=== PATIENT | female | born 1935 | race Caucasian/White ===

== ENCOUNTER → 2017-03-06 07:55 | Outpatient (CLI) | payer MEDICARE, SELFPAY ==
[2017-03-06 08:11] VITALS: BP 137/91; PULSE 104; RESP 18; TEMP 36.6; O2SAT 98; BMI 27.4
[2017-03-06] MEDS: Immune Globulin 20 gm Premixed Solution IV ×2 (08:23→10:36)
[2017-03-06 09:05] VITALS: BP 107/84; PULSE 96; RESP 18; TEMP 36.9; O2SAT 96
[2017-03-06 09:44] VITALS: BP 130/81; PULSE 90; RESP 16; TEMP 36.8; O2SAT 95
[2017-03-06 10:32] VITALS: BP 145/93; PULSE 98; RESP 16; TEMP 36.4; O2SAT 98
[2017-03-06 11:40] VITALS: BP 134/88; PULSE 94; RESP 18; TEMP 36.3; O2SAT 97
[2017-03-06] MEDS: Immune Globulin 5 GM Premixed Solution IV (11:51)
== END ==
PROVIDERS: Family Provider Family Medicine; PCP Family Medicine; Visit Provider Internal Medicine Rheumatology
DX: M33.92 Dermatopolymyositis, unspecified with myopathy (principal)
CPT/HCPCS: 96365; 96366; A4216; J1568

== ENCOUNTER → 2017-03-07 07:55 | Outpatient (CLI) | payer MEDICARE, SELFPAY ==
[2017-03-07 08:02] VITALS: BP 140/86; PULSE 101; RESP 18; TEMP 36.6; O2SAT 99; BMI 27.4
[2017-03-07] MEDS: Immune Globulin 20 gm Premixed Solution IV ×2 (08:08→10:06)
[2017-03-07 08:47] VITALS: BP 130/85; PULSE 98; RESP 16; TEMP 37.1; O2SAT 98
[2017-03-07 09:16] VITALS: BP 141/80; PULSE 97; RESP 16; TEMP 36.6; O2SAT 96
[2017-03-07 09:48] VITALS: BP 129/78; PULSE 71; RESP 16; TEMP 36.6
[2017-03-07 10:51] VITALS: BP 134/82; PULSE 75; RESP 16; TEMP 37.1; O2SAT 98
[2017-03-07] MEDS: Immune Globulin 5 GM Premixed Solution IV (11:19)
== END ==
PROVIDERS: Family Provider Family Medicine; PCP Family Medicine; Visit Provider Internal Medicine Rheumatology
DX: M33.92 Dermatopolymyositis, unspecified with myopathy (principal)
CPT/HCPCS: 96365; 96366; A4216; J1568

== ENCOUNTER → 2017-04-03 07:56 | Outpatient (CLI) | payer MEDICARE, SELFPAY ==
[2017-04-03] MEDS: Immune Globulin 20 gm Premixed Solution IV ×2 (08:11→10:01)
[2017-04-03 08:17] VITALS: BP 167/79; PULSE 84; RESP 16; TEMP 37.1; O2SAT 100; BMI 27.4
[2017-04-03 08:50] VITALS: BP 129/84; PULSE 73; RESP 16; TEMP 36.8; O2SAT 95
[2017-04-03 09:17] VITALS: BP 123/80; PULSE 67; RESP 16; TEMP 36.8
[2017-04-03 09:44] VITALS: BP 137/74; PULSE 64; RESP 16; TEMP 36.8
[2017-04-03 11:05] VITALS: BP 138/78; PULSE 68; RESP 16; TEMP 36.8
[2017-04-03] MEDS: Immune Globulin 5 GM Premixed Solution IV (11:23)
[2017-04-03 11:58] VITALS: BP 125/80; PULSE 68; RESP 16
== END ==
PROVIDERS: Family Provider Family Medicine; PCP Family Medicine; Visit Provider Internal Medicine Rheumatology
DX: M33.92 Dermatopolymyositis, unspecified with myopathy (principal)
CPT/HCPCS: 96365; 96366; A4216; J1568

== ENCOUNTER → 2017-04-04 07:52 | Outpatient (CLI) | payer MEDICARE, SELFPAY ==
[2017-04-04 08:08] VITALS: BP 143/84; PULSE 94; RESP 18; TEMP 37.1; O2SAT 98; BMI 27.0
[2017-04-04] MEDS: Immune Globulin 20 gm Premixed Solution IV ×2 (08:14→09:57)
[2017-04-04 08:45] VITALS: BP 141/76; PULSE 78; RESP 16; TEMP 37; O2SAT 98
[2017-04-04 09:15] VITALS: BP 135/86; PULSE 73
[2017-04-04 09:49] VITALS: BP 132/87; PULSE 78; RESP 18; TEMP 36.9; O2SAT 96
[2017-04-04] MEDS: Immune Globulin 5 GM Premixed Solution IV (11:08)
== END ==
PROVIDERS: Family Provider Family Medicine; PCP Family Medicine; Visit Provider Internal Medicine Rheumatology
DX: M33.92 Dermatopolymyositis, unspecified with myopathy (principal)
CPT/HCPCS: 96365; 96366; A4216; J1568

== ENCOUNTER → 2017-04-27 07:48 | Outpatient (CLI) | payer MEDICARE, SELFPAY ==
[2017-04-27 10:24] LABS: PTHIN 73.4 pg/mL (18.4-80.1)
[2017-04-27 10:27] LABS: ALB/GLOB Ratio 0.8 RATIO (0.9-2.4); AST(SGOT) 24 U/L (15-37); Alanine Aminotransfer ALT/SGPT 33 U/L (13-56); Albumin, Serum 3.4 g/dL (3.2-5.0); Alkaline Phosphatase 49 U/L (45-117); Anion Gap 8 (5-15); BUN 15 mg/dL (7-18); BUN/Creat Ratio 25.6 RATIO (10-20); Calcium,Total 8.6 mg/dL (8.5-10.1); Chloride 104 mmol/L (98-107); Creatinine, Serum 0.59 mg/dL (0.55-1.02); EST Glomerular Filtration Rate 105 mL/min (>60); Est Glom Filt Rate - Afr Amer 127 mL/min (>60); Globulin 4.3 g/dL (2.2-4.2); Glucose 87 mg/dL (74-106); Potassium 3.5 mmol/L (3.5-5.1); Protein, Total 7.7 g/dL (6.4-8.2); Sodium Level 139 mmol/L (136-145); Thyroid Stim Hormone (TSH) 1.76 uIU/mL (0.358-3.74)
== END ==
PROVIDERS: Family Provider Family Medicine; PCP Family Medicine; Visit Provider Internal Medicine Endocrinology, Diabetes & Metabolism
DX: E03.8 Other specified hypothyroidism (principal)
CPT/HCPCS: 36415; 80053; 83970; 84443

== ENCOUNTER → 2017-05-02 07:53 | Outpatient (CLI) | payer MEDICARE, SELFPAY ==
[2017-05-02] MEDS: Immune Globulin 20 gm Premixed Solution IV ×2 (08:22→10:10)
[2017-05-02 08:29] VITALS: BP 123/81; PULSE 100; RESP 16; TEMP 36.9; O2SAT 98; BMI 27.4
[2017-05-02 08:53] VITALS: BP 118/80; PULSE 84; RESP 16; TEMP 37.1; O2SAT 94
[2017-05-02 09:27] VITALS: BP 123/75; PULSE 76; RESP 16; TEMP 36.9; O2SAT 97
[2017-05-02 09:58] VITALS: BP 129/80; PULSE 70; RESP 16; TEMP 36.6; O2SAT 97
[2017-05-02 10:59] VITALS: BP 134/74; PULSE 79; RESP 16; TEMP 37.2; O2SAT 99
[2017-05-02] MEDS: Immune Globulin 10 gm Premixed Solution IV (11:25)
== END ==
PROVIDERS: Family Provider Family Medicine; PCP Family Medicine; Visit Provider Internal Medicine Rheumatology
DX: M33.92 Dermatopolymyositis, unspecified with myopathy (principal)
CPT/HCPCS: 96365; 96366; A4216; J1568

== ENCOUNTER → 2017-05-03 07:52 | Outpatient (CLI) | payer MEDICARE, SELFPAY ==
[2017-05-03 07:58] VITALS: BP 132/84; PULSE 107; RESP 16; TEMP 37; O2SAT 97; BMI 27.4
[2017-05-03] MEDS: Immune Globulin 20 gm Premixed Solution IV ×2 (08:19→09:56)
[2017-05-03 08:52] VITALS: BP 121/80; PULSE 91; RESP 16; TEMP 36.9; O2SAT 98
[2017-05-03 09:25] VITALS: BP 125/75; PULSE 79; RESP 18; TEMP 36.9; O2SAT 93
[2017-05-03 09:56] VITALS: BP 128/76; PULSE 70; RESP 16; TEMP 36.9; O2SAT 96
[2017-05-03 11:03] VITALS: BP 132/80; PULSE 83; RESP 16; TEMP 36.8; O2SAT 96
== END ==
PROVIDERS: Family Provider Family Medicine; PCP Family Medicine; Visit Provider Internal Medicine Rheumatology
DX: M33.92 Dermatopolymyositis, unspecified with myopathy (principal)
CPT/HCPCS: 96365; 96366; A4216; J1568

== ENCOUNTER → 2017-05-10 08:24 | Outpatient (CLI) | payer MEDICARE, SELFPAY ==
[2017-05-10 09:55] LABS: Absolute Lymphocyte Count 0.97 X10^3/ul (0.83-4.51); Absolute Neutrophil Count 2.1 X10^3/uL (2.0-7.7); Basophil# 0.05 X10^3/uL; Basophil% 1.3 % (0-1); Eosinophil# 0.16 X10^3/uL; Hematocrit 37.6 % (37-47); Hemoglobin 12.1 g/dl (12.0-15.0); Lymphocyte # 0.97 X10^3/ul (4.0); Lymphocyte % 24.3 % (19-41); Mean Corp Hgb Conc 32.2 g/gl (32-36); Mean Corpuscular Hgb 29.4 pg (27.0-32.0); Mean Corpuscular Volume 91.3 fL (81-99); Mean Platelet Vol. 9.1 fl (6.2-12.0); Monocyte# 0.67 X10^3/uL; Monocyte% 16.8 % (0-10); Neutrophil # 2.12 X10^3/uL (2.7-7.7); Neutrophil % 53.1 % (47-70); Platelet Count 225 K/mm3 (150-450); RBC Distribution Width CV 15.8 % (11.6-14.6); RBC Distribution Width SD 50.9 fl (35.1-43.9); Red Blood Count 4.12 M/mm3 (4.2-5.4)
[2017-05-10 09:56] LABS: POSITIVE COUNT NO; POSITIVE DIFFERENTIAL NO; POSITIVE MORPHOLOGY NO
[2017-05-10 10:20] LABS: ALB/GLOB Ratio 0.7 RATIO (0.9-2.4); AST(SGOT) 32 U/L (15-37); Alanine Aminotransfer ALT/SGPT 38 U/L (13-56); Albumin, Serum 3.4 g/dL (3.2-5.0); Alkaline Phosphatase 45 U/L (45-117); Anion Gap 7 (5-15); BUN 16 mg/dL (7-18); BUN/Creat Ratio 27.6 RATIO (10-20); CPK Total, Creatine Kinase 149 U/L (26-192); Calcium,Total 8.8 mg/dL (8.5-10.1); Chloride 105 mmol/L (98-107); Creatinine, Serum 0.58 mg/dL (0.55-1.02); EST Glomerular Filtration Rate 106 mL/min (>60); Est Glom Filt Rate - Afr Amer 128 mL/min (>60); Globulin 4.8 g/dL (2.2-4.2); Glucose 84 mg/dL (74-106); Potassium 3.8 mmol/L (3.5-5.1); Protein, Total 8.2 g/dL (6.4-8.2); Sodium Level 138 mmol/L (136-145)
== END ==
PROVIDERS: Family Provider Family Medicine; PCP Family Medicine; Visit Provider Internal Medicine Rheumatology
DX: M33.92 Dermatopolymyositis, unspecified with myopathy (principal); M15.9 Polyosteoarthritis, unspecified; M51.36 Other intervertebral disc degeneration, lumbar region; M81.0 Age-related osteoporosis without current pathological fracture; I10 Essential (primary) hypertension; E03.9 Hypothyroidism, unspecified; Z79.899 Other long term (current) drug therapy
CPT/HCPCS: 36415; 80053; 82550; 85025

== ENCOUNTER → 2017-05-30 07:51 | Outpatient (CLI) | payer MEDICARE, SELFPAY ==
[2017-05-30 07:58] VITALS: BP 135/87; PULSE 99; RESP 16; TEMP 37; O2SAT 96
[2017-05-30] MEDS: Immune Globulin 20 gm Premixed Solution IV ×2 (08:05→09:59)
[2017-05-30 08:40] VITALS: BP 117/75; PULSE 76; RESP 16; TEMP 36.8; O2SAT 99
[2017-05-30 09:10] VITALS: BP 160/85; PULSE 84; RESP 16; TEMP 36.8; O2SAT 98
[2017-05-30 09:50] VITALS: BP 127/74; PULSE 63; RESP 18; TEMP 36.6; O2SAT 99
[2017-05-30 10:55] VITALS: BP 140/80; PULSE 66; RESP 16; TEMP 36.6; O2SAT 66
[2017-05-30] MEDS: Immune Globulin 5 GM Premixed Solution IV (11:10)
[2017-05-30 11:35] VITALS: BP 151/79; PULSE 61; RESP 16; TEMP 36.5; O2SAT 96
== END ==
PROVIDERS: Family Provider Family Medicine; PCP Family Medicine; Visit Provider Internal Medicine Rheumatology
DX: M33.92 Dermatopolymyositis, unspecified with myopathy (principal)
CPT/HCPCS: 96365; 96366; A4216; J1568

== ENCOUNTER → 2017-05-31 07:53 | Outpatient (CLI) | payer MEDICARE, SELFPAY ==
[2017-05-31 07:57] VITALS: BP 156/84; PULSE 97; RESP 16; TEMP 36.6; O2SAT 98; BMI 27.4
[2017-05-31] MEDS: Immune Globulin 20 gm Premixed Solution IV ×2 (08:06→09:53)
[2017-05-31 08:40] VITALS: BP 121/79; PULSE 77; RESP 16; TEMP 36.7; O2SAT 96
[2017-05-31 09:10] VITALS: BP 129/81; PULSE 83; RESP 18; TEMP 36.7; O2SAT 95
[2017-05-31 09:40] VITALS: BP 140/77; PULSE 73; RESP 16; TEMP 36.7; O2SAT 95
[2017-05-31 10:40] VITALS: BP 139/79; PULSE 66; RESP 16; TEMP 36.4; O2SAT 96
[2017-05-31] MEDS: Immune Globulin 5 GM Premixed Solution IV (11:02)
[2017-05-31 11:25] VITALS: BP 134/85; PULSE 78; RESP 16; TEMP 36.7; O2SAT 96
== END ==
PROVIDERS: Family Provider Family Medicine; PCP Family Medicine; Visit Provider Internal Medicine Rheumatology
DX: M33.92 Dermatopolymyositis, unspecified with myopathy (principal)
CPT/HCPCS: 96365; 96366; A4216; J1568

== ENCOUNTER → 2017-06-18 09:40 | Outpatient (CLI) | payer MEDICARE, SELFPAY ==
--- NOTE | 2017-06-18 09:45 | BI_ITS ---
MAMMOGRAPHY - UNILATERAL DIAGNOSTIC: LEFT BREAST REASON FOR EXAM: Female, 81 years old. Six-month follow-up for stereotactic biopsy of the calcifications in the left breast. PERTINENT HISTORY: Sister with breast cancer. Patient has a history of autoimmune dermatomyositis. TECHNIQUE: Digital unilateral breast hope (3D mammographic acquisition) in the CC and MLO projections. 2-D mediolateral oblique (MLO) and craniocaudad (CC) views of both breasts were obtained. CAD: Full Field Digital Mammography with Computer Added Detection was performed. COMPARISON: Comparison is made with prior study dated October 03, 2016 and September 15, 2015. FINDINGS: Breast Composition: There are scattered areas of fibroglandular density. There are no dominant masses or suspicious calcifications. A tissue clip marker from prior stereotactic biopsy is seen within the calcifications in the deep upper portion of the left breast. The calcifications have decreased in number since prior study. Stable skin calcification overlying the lower aspect of the left breast. No other significant abnormalities are identified. BI/DIAG MAMM W/CAD, UNILAT IMPRESSION: Stable unilateral diagnostic mammogram. One year follow-up mammogram recommended. (A) ASSESSMENT CATEGORY: BIRADS Category 2: Benign. A letter regarding these results will be sent to the patient by the facility within 30 days. Approximately 10% of breast cancers are not detected by mammography. A normal mammogram should not delay biopsy of a clinically suspicious abnormality. Electronically Signed: Jose Jackson MD at 11:02 EDT Tel [phone], Service support ,
== END ==
PROVIDERS: Family Provider Family Medicine; PCP Family Medicine; Visit Provider Surgery
DX: R92.8 Other abnormal and inconclusive findings on diagnostic imaging of breast (principal)
CPT/HCPCS: 77061; 77065; G0279

== ENCOUNTER → 2017-06-27 08:00 | Outpatient (CLI) | payer MEDICARE, SELFPAY ==
[2017-06-27 08:01] VITALS: BP 148/85; PULSE 107; RESP 16; TEMP 36.7; O2SAT 96; BMI 27.0
[2017-06-27] MEDS: Immune Globulin 20 gm Premixed Solution IV ×2 (08:17→10:08)
[2017-06-27 08:52] VITALS: BP 123/77; PULSE 79; RESP 16; TEMP 36.7
[2017-06-27 09:25] VITALS: BP 131/80; PULSE 76; RESP 18; TEMP 36.6; O2SAT 96
[2017-06-27 09:57] VITALS: BP 131/79; PULSE 77; RESP 16; TEMP 36.6
[2017-06-27 11:05] VITALS: BP 141/89; PULSE 71; RESP 16; TEMP 36.6
[2017-06-27] MEDS: Immune Globulin 5 GM Premixed Solution IV (11:29)
[2017-06-27 11:56] VITALS: BP 135/82; PULSE 68; RESP 16; TEMP 36.3; O2SAT 97
== END ==
PROVIDERS: Family Provider Family Medicine; PCP Family Medicine; Visit Provider Internal Medicine Rheumatology
DX: M33.92 Dermatopolymyositis, unspecified with myopathy (principal)
CPT/HCPCS: 96365; 96366; A4216; J1568

== ENCOUNTER → 2017-06-28 07:53 | Outpatient (CLI) | payer MEDICARE, SELFPAY ==
[2017-06-28 08:05] VITALS: BP 143/82; PULSE 95; RESP 18; TEMP 36.5; O2SAT 97; BMI 27.1
[2017-06-28] MEDS: Immune Globulin 20 gm Premixed Solution IV ×2 (08:12→09:56)
[2017-06-28 08:43] VITALS: BP 131/77; PULSE 85; RESP 18; TEMP 36.3; O2SAT 95
[2017-06-28 09:15] VITALS: BP 115/73; PULSE 74; RESP 16; TEMP 36.2; O2SAT 96
[2017-06-28 09:47] VITALS: BP 122/77; PULSE 71; RESP 16; TEMP 36.1; O2SAT 95
[2017-06-28 10:56] VITALS: BP 133/87; PULSE 67; RESP 16; TEMP 36.7
[2017-06-28] MEDS: Immune Globulin 5 GM Premixed Solution IV (11:09)
== END ==
PROVIDERS: Family Provider Family Medicine; PCP Family Medicine; Visit Provider Internal Medicine Rheumatology
DX: M33.92 Dermatopolymyositis, unspecified with myopathy (principal)
CPT/HCPCS: 96365; 96366; J1568

== ENCOUNTER → 2017-07-26 07:50 | Outpatient (CLI) | payer MEDICARE, SELFPAY ==
[2017-07-26 08:01] VITALS: BP 135/94; PULSE 89; RESP 18; TEMP 37.2; O2SAT 97; BMI 27.6
[2017-07-26] MEDS: Immune Globulin 20 gm Premixed Solution IV ×2 (08:29→10:11)
[2017-07-26 08:59] VITALS: BP 111/78; PULSE 73; RESP 16; TEMP 37.2; O2SAT 95
[2017-07-26 09:33] VITALS: BP 125/74; PULSE 70; RESP 16; TEMP 37.1; O2SAT 96
[2017-07-26 10:09] VITALS: BP 124/77; PULSE 63; RESP 18; TEMP 36.8; O2SAT 96
[2017-07-26 11:17] VITALS: BP 132/79; PULSE 65; RESP 18; TEMP 37; O2SAT 97
[2017-07-26] MEDS: Immune Globulin 5 GM Premixed Solution IV (11:21)
== END ==
PROVIDERS: Family Provider Family Medicine; PCP Family Medicine; Visit Provider Internal Medicine Rheumatology
DX: M33.92 Dermatopolymyositis, unspecified with myopathy (principal)
CPT/HCPCS: 96365; 96366; A4216; J1568

== ENCOUNTER → 2017-07-27 07:51 | Outpatient (CLI) | payer MEDICARE, SELFPAY ==
[2017-07-27 07:57] VITALS: BP 145/82; PULSE 93; RESP 18; TEMP 36.2; O2SAT 94; BMI 27.6
[2017-07-27] MEDS: Immune Globulin 20 gm Premixed Solution IV ×2 (08:19→10:10)
[2017-07-27 08:57] VITALS: BP 127/81; PULSE 75; RESP 16
[2017-07-27 09:29] VITALS: BP 151/86; PULSE 73
[2017-07-27 09:55] VITALS: BP 131/70; PULSE 69
[2017-07-27 10:46] VITALS: BP 130/72; PULSE 66
[2017-07-27] MEDS: Immune Globulin 5 GM Premixed Solution IV (11:29)
[2017-07-27 11:33] VITALS: BP 137/85; PULSE 68; RESP 18; TEMP 36.3; O2SAT 97
== END ==
PROVIDERS: Family Provider Family Medicine; PCP Family Medicine; Visit Provider Internal Medicine Rheumatology
DX: M33.92 Dermatopolymyositis, unspecified with myopathy (principal)
CPT/HCPCS: 96365; 96366; A4216; J1568

== ENCOUNTER → 2017-08-09 07:44 | Outpatient (CLI) | payer MEDICARE, SELFPAY ==
[2017-08-09 10:10] LABS: Absolute Lymphocyte Count 0.84 X10^3/ul (0.83-4.51); Absolute Neutrophil Count 2.4 X10^3/uL (2.0-7.7); Basophil# 0.06 X10^3/uL; Basophil% 1.5 % (0-1); Eosinophil# 0.14 X10^3/uL; Eosinophils% 3.4 % (0-5); Hemoglobin 12.8 g/dl (12.0-15.0); Lymphocyte # 0.84 X10^3/ul (4.0); Lymphocyte % 20.4 % (19-41); Mean Corp Hgb Conc 32.8 g/gl (32-36); Mean Corpuscular Hgb 30.1 pg (27.0-32.0); Mean Corpuscular Volume 91.8 fL (81-99); Mean Platelet Vol. 9.6 fl (6.2-12.0); Monocyte# 0.72 X10^3/uL; Monocyte% 17.5 % (0-10); Neutrophil # 2.35 X10^3/uL (2.7-7.7); Platelet Count 255 K/mm3 (150-450); RBC Distribution Width SD 52.4 fl (35.1-43.9); Red Blood Count 4.25 M/mm3 (4.2-5.4); White Blood Count 4.1 K/mm3 (4.4-11.0)
[2017-08-09 10:31] LABS: POSITIVE COUNT NO; POSITIVE DIFFERENTIAL NO; POSITIVE MORPHOLOGY NO
[2017-08-09 10:33] LABS: ALB/GLOB Ratio 0.7 RATIO (0.9-2.4); AST(SGOT) 29 U/L (15-37); Alanine Aminotransfer ALT/SGPT 33 U/L (13-56); Albumin, Serum 3.4 g/dL (3.2-5.0); Alkaline Phosphatase 50 U/L (45-117); Anion Gap 8 (5-15); BUN 14 mg/dL (7-18); BUN/Creat Ratio 20.9 RATIO (10-20); CPK Total, Creatine Kinase 71 U/L (26-192); Calcium,Total 9.4 mg/dL (8.5-10.1); Chloride 104 mmol/L (98-107); Creatinine, Serum 0.67 mg/dL (0.55-1.02); EST Glomerular Filtration Rate 90 mL/min (>60); Est Glom Filt Rate - Afr Amer 109 mL/min (>60); Globulin 4.8 g/dL (2.2-4.2); Glucose 86 mg/dL (74-106); Potassium 3.8 mmol/L (3.5-5.1); Protein, Total 8.2 g/dL (6.4-8.2); Sodium Level 140 mmol/L (136-145)
== END ==
PROVIDERS: Family Provider Family Medicine; PCP Family Medicine; Visit Provider Internal Medicine Rheumatology
DX: M33.92 Dermatopolymyositis, unspecified with myopathy (principal); M15.9 Polyosteoarthritis, unspecified; M51.36 Other intervertebral disc degeneration, lumbar region; M81.0 Age-related osteoporosis without current pathological fracture; I10 Essential (primary) hypertension; E03.9 Hypothyroidism, unspecified; E21.1 Secondary hyperparathyroidism, not elsewhere classified; Z79.899 Other long term (current) drug therapy
CPT/HCPCS: 36415; 80053; 82550; 85025

== ENCOUNTER → 2017-08-23 07:52 | Outpatient (CLI) | payer MEDICARE, SELFPAY ==
[2017-08-23 08:01] VITALS: BP 136/84; PULSE 90; RESP 16; TEMP 36.6; O2SAT 97; BMI 27.4
[2017-08-23] MEDS: Immune Globulin 20 gm Premixed Solution IV ×2 (08:13→10:05)
[2017-08-23 08:49] VITALS: BP 160/99; PULSE 83; RESP 16; TEMP 36.8; O2SAT 97
[2017-08-23 09:26] VITALS: BP 127/81; PULSE 77; RESP 16; TEMP 36.8
[2017-08-23 09:56] VITALS: BP 133/89; PULSE 61; RESP 16; TEMP 36.3
[2017-08-23 11:04] VITALS: BP 133/74; PULSE 61; RESP 18; TEMP 36.4; O2SAT 97
[2017-08-23] MEDS: Immune Globulin 5 GM Premixed Solution IV (11:08)
== END ==
PROVIDERS: Family Provider Family Medicine; PCP Family Medicine; Visit Provider Internal Medicine Rheumatology
DX: M33.92 Dermatopolymyositis, unspecified with myopathy (principal)
CPT/HCPCS: 96365; 96366; A4216; J1568

== ENCOUNTER → 2017-08-24 07:53 | Outpatient (CLI) | payer MEDICARE, SELFPAY ==
[2017-08-24 08:00] VITALS: BP 137/81; PULSE 77; RESP 16; TEMP 36.8; O2SAT 98; BMI 27.4
[2017-08-24] MEDS: Immune Globulin 20 gm Premixed Solution IV ×2 (08:28→10:35)
[2017-08-24 09:07] VITALS: BP 139/80; PULSE 73; RESP 16; TEMP 36.9; O2SAT 96
[2017-08-24 09:38] VITALS: BP 131/82; PULSE 66; RESP 14; TEMP 36.6; O2SAT 97
[2017-08-24 10:11] VITALS: BP 128/78; PULSE 72; RESP 16; TEMP 36.7; O2SAT 97
[2017-08-24 11:05] VITALS: BP 136/82; PULSE 58; RESP 16; TEMP 36.4; O2SAT 98
[2017-08-24] MEDS: Immune Globulin 5 GM Premixed Solution IV (11:40)
[2017-08-24 12:10] VITALS: BP 156/71; PULSE 70; RESP 16; TEMP 36.8; O2SAT 97
== END ==
PROVIDERS: Family Provider Family Medicine; PCP Family Medicine; Visit Provider Internal Medicine Rheumatology
DX: M33.92 Dermatopolymyositis, unspecified with myopathy (principal)
CPT/HCPCS: 96365; 96366; A4216; J1568

== ENCOUNTER → 2017-09-20 07:56 | Outpatient (CLI) | payer MEDICARE, SELFPAY ==
[2017-09-20 08:07] VITALS: BP 133/82; PULSE 91; RESP 18; TEMP 36.6; O2SAT 98; BMI 27.6
[2017-09-20] MEDS: Immune Globulin 20 gm Premixed Solution IV ×2 (08:20→10:25)
[2017-09-20 09:00] VITALS: BP 136/85; PULSE 77
[2017-09-20 09:30] VITALS: BP 131/77; PULSE 72
[2017-09-20 10:00] VITALS: BP 131/66; PULSE 67; RESP 16
[2017-09-20 11:03] VITALS: BP 135/76; PULSE 70; RESP 18; TEMP 36.5; O2SAT 97
[2017-09-20] MEDS: Immune Globulin 5 GM Premixed Solution IV (11:32)
[2017-09-20 11:58] VITALS: BP 130/73; PULSE 68; RESP 18; TEMP 36.6; O2SAT 96
== END ==
PROVIDERS: Family Provider Family Medicine; PCP Family Medicine; Visit Provider Internal Medicine Rheumatology
DX: M33.92 Dermatopolymyositis, unspecified with myopathy (principal)
CPT/HCPCS: 96365; 96366; A4216; J1568

== ENCOUNTER → 2017-09-21 07:52 | Outpatient (CLI) | payer MEDICARE, SELFPAY ==
[2017-09-21 08:00] VITALS: BP 150/87; PULSE 91; RESP 16; TEMP 36.8; O2SAT 98; BMI 27.6
[2017-09-21] MEDS: Immune Globulin 20 gm Premixed Solution IV ×2 (08:34→10:28)
[2017-09-21 09:07] VITALS: BP 136/87; PULSE 77; RESP 16; TEMP 36.6; O2SAT 96
[2017-09-21 09:39] VITALS: BP 135/83; PULSE 61; RESP 16; TEMP 36.5; O2SAT 98
[2017-09-21 10:12] VITALS: BP 126/70; PULSE 68; RESP 16; TEMP 36.5; O2SAT 97
[2017-09-21 11:11] VITALS: BP 127/78; PULSE 62; RESP 16; TEMP 36.5; O2SAT 98
[2017-09-21] MEDS: Immune Globulin 5 GM Premixed Solution IV (11:41)
== END ==
PROVIDERS: Family Provider Family Medicine; PCP Family Medicine; Visit Provider Internal Medicine Rheumatology
DX: M33.92 Dermatopolymyositis, unspecified with myopathy (principal)
CPT/HCPCS: 96365; 96366; A4216; J1568

== ENCOUNTER → 2017-10-04 08:28 | Outpatient (CLI) | payer MEDICARE, SELFPAY | PROVIDERS: Family Provider Family Medicine; PCP Family Medicine; Visit Provider Family Medicine | DX: Z12.31 Encounter for screening mammogram for malignant neoplasm of breast (principal) | CPT/HCPCS: 77061; 77067; G0279 ==

== ENCOUNTER → 2017-10-18 07:59 | Outpatient (CLI) | payer MEDICARE, SELFPAY ==
[2017-10-18] VITALS (7 sets, daily range): BP systolic 115–140; BP diastolic 69–83; PULSE 66–93; RESP 15–18; TEMP 36.5–37.1; O2SAT 94–98
[2017-10-18] MEDS: Immune Globulin 20 gm Premixed Solution IV ×2 (08:23→10:18)
[2017-10-18] MEDS: Immune Globulin 5 GM Premixed Solution IV (11:46)
== END ==
PROVIDERS: Family Provider Family Medicine; PCP Family Medicine; Visit Provider Internal Medicine Rheumatology
DX: M33.92 Dermatopolymyositis, unspecified with myopathy (principal)
CPT/HCPCS: 96365; 96366; A4216; J1568

== ENCOUNTER → 2017-10-19 07:55 | Outpatient (CLI) | payer MEDICARE, SELFPAY ==
[2017-10-19 08:09] VITALS: BP 175/83; PULSE 100; RESP 16; TEMP 37.1; O2SAT 98; BMI 27.2
[2017-10-19] MEDS: Immune Globulin 20 gm Premixed Solution IV ×2 (08:24→10:11)
[2017-10-19 09:00] VITALS: BP 153/94; PULSE 73; RESP 16; TEMP 36.9; O2SAT 97
[2017-10-19 09:31] VITALS: BP 121/69; PULSE 78; RESP 16; TEMP 36.6; O2SAT 100
[2017-10-19 10:01] VITALS: BP 115/72; PULSE 63; RESP 16
[2017-10-19] MEDS: Immune Globulin 5 GM Premixed Solution IV (11:21)
== END ==
PROVIDERS: Family Provider Family Medicine; PCP Family Medicine; Visit Provider Internal Medicine Rheumatology
DX: M33.92 Dermatopolymyositis, unspecified with myopathy (principal)
CPT/HCPCS: 96365; 96366; A4216; J1568

== ENCOUNTER → 2017-10-29 07:20 | Outpatient (CLI) | payer MEDICARE, SELFPAY ==
[2017-10-29 10:22] LABS: Absolute Lymphocyte Count 0.93 X10^3/ul (0.83-4.51); Absolute Neutrophil Count 1.9 X10^3/uL (2.0-7.7); Basophil# 0.02 X10^3/uL; Basophil% 0.6 % (0-1); Eosinophil# 0.02 X10^3/uL; Eosinophils% 0.6 % (0-5); Hemoglobin 12.4 g/dl (12.0-15.0); Lymphocyte # 0.93 X10^3/ul (4.0); Lymphocyte % 25.8 % (19-41); Mean Corp Hgb Conc 33.5 g/gl (32-36); Mean Corpuscular Hgb 30.7 pg (27.0-32.0); Mean Corpuscular Volume 91.6 fL (81-99); Mean Platelet Vol. 9.4 fl (6.2-12.0); Monocyte# 0.69 X10^3/uL; Monocyte% 19.2 % (0-10); Neutrophil # 1.93 X10^3/uL (2.7-7.7); Neutrophil % 53.5 % (47-70); Platelet Count 243 K/mm3 (150-450); RBC Distribution Width SD 50.3 fl (35.1-43.9); Red Blood Count 4.04 M/mm3 (4.2-5.4); White Blood Count 3.6 K/mm3 (4.4-11.0)
[2017-10-29 10:24] LABS: POSITIVE COUNT NO; POSITIVE DIFFERENTIAL NO; POSITIVE MORPHOLOGY NO
[2017-10-29 10:41] LABS: ALB/GLOB Ratio 0.7 RATIO (0.9-2.4); AST(SGOT) 23 U/L (15-37); Alanine Aminotransfer ALT/SGPT 32 U/L (13-56); Albumin, Serum 3.4 g/dL (3.2-5.0); Alkaline Phosphatase 45 U/L (45-117); Anion Gap 7 (5-15); BUN 13 mg/dL (7-18); BUN/Creat Ratio 21.1 RATIO (10-20); CPK Total, Creatine Kinase 82 U/L (26-192); Calcium,Total 8.6 mg/dL (8.5-10.1); Chloride 107 mmol/L (98-107); Creatinine, Serum 0.62 mg/dL (0.55-1.02); EST Glomerular Filtration Rate 99 mL/min (>60); Est Glom Filt Rate - Afr Amer 120 mL/min (>60); Globulin 5.2 g/dL (2.2-4.2); Glucose 85 mg/dL (74-106); Potassium 3.9 mmol/L (3.5-5.1); Protein, Total 8.6 g/dL (6.4-8.2); Sodium Level 139 mmol/L (136-145); Thyroid Stim Hormone (TSH) 1.18 uIU/mL (0.358-3.74)
[2017-10-29 10:54] LABS: PTHIN 119.4 pg/mL (18.4-80.1); Vitamin D,25 Hydroxy 62.6 ng/mL (29.95-100.01)
== END ==
PROVIDERS: Family Provider Family Medicine; PCP Family Medicine; Visit Provider Internal Medicine Rheumatology
DX: M33.92 Dermatopolymyositis, unspecified with myopathy (principal); M15.9 Polyosteoarthritis, unspecified; M51.36 Other intervertebral disc degeneration, lumbar region; M81.0 Age-related osteoporosis without current pathological fracture; I10 Essential (primary) hypertension; E21.1 Secondary hyperparathyroidism, not elsewhere classified; E03.8 Other specified hypothyroidism; E55.9 Vitamin D deficiency, unspecified; Z79.899 Other long term (current) drug therapy
CPT/HCPCS: 36415; 80053; 82306; 82550; 83970; 84443; 85025

== ENCOUNTER → 2017-11-15 08:00 | Outpatient (CLI) | payer MEDICARE, SELFPAY ==
[2017-11-15 08:08] VITALS: BP 140/89; PULSE 94; RESP 18; TEMP 36.6; O2SAT 97; BMI 26.8
[2017-11-15] MEDS: Immune Globulin 10 gm Premixed Solution IV ×4 (08:31→12:03)
[2017-11-15 09:08] VITALS: BP 110/74; PULSE 72; RESP 18; TEMP 36.8; O2SAT 96
[2017-11-15 09:35] VITALS: BP 139/77; PULSE 67
[2017-11-15 10:05] VITALS: BP 143/80; PULSE 74; RESP 18; TEMP 36.7; O2SAT 94
[2017-11-15 10:57] VITALS: BP 130/75; PULSE 63; RESP 16; TEMP 36.7; O2SAT 97
[2017-11-15] MEDS: Immune Globulin 5 GM Premixed Solution IV (11:34)
== END ==
PROVIDERS: Family Provider Family Medicine; PCP Family Medicine; Visit Provider Internal Medicine Rheumatology
DX: M33.92 Dermatopolymyositis, unspecified with myopathy (principal)
CPT/HCPCS: 96365; 96366; A4216; J1568

== ENCOUNTER → 2017-11-16 07:58 | Outpatient (CLI) | payer MEDICARE, SELFPAY ==
[2017-11-16 08:07] VITALS: BP 142/72; PULSE 91; RESP 16; TEMP 37; O2SAT 98; BMI 26.8
[2017-11-16] MEDS: Immune Globulin 10 gm Premixed Solution IV ×4 (08:33→11:05)
[2017-11-16 09:05] VITALS: BP 123/80; PULSE 90; RESP 18; TEMP 36.9; O2SAT 96
[2017-11-16 09:32] VITALS: BP 121/77; PULSE 68; RESP 18; TEMP 36.7; O2SAT 96
[2017-11-16 10:23] VITALS: BP 122/74; PULSE 65; RESP 16; TEMP 36.7; O2SAT 97
[2017-11-16 11:29] VITALS: BP 133/83; PULSE 64; RESP 16; TEMP 36.6; O2SAT 98
[2017-11-16] MEDS: Immune Globulin 5 GM Premixed Solution IV (11:38)
== END ==
PROVIDERS: Family Provider Family Medicine; PCP Family Medicine; Visit Provider Internal Medicine Rheumatology
DX: M33.92 Dermatopolymyositis, unspecified with myopathy (principal)
CPT/HCPCS: 96365; 96366; A4216; J1568

== ENCOUNTER → 2017-12-13 07:53 | Outpatient (CLI) | payer MEDICARE, SELFPAY ==
[2017-12-13 07:59] VITALS: BP 141/80; PULSE 94; RESP 18; TEMP 36.6; O2SAT 98; BMI 26.4
[2017-12-13] MEDS: Immune Globulin 20 gm Premixed Solution IV ×2 (08:17→10:05)
[2017-12-13 08:51] VITALS: BP 120/71; PULSE 71; RESP 16; TEMP 36.6; O2SAT 98
[2017-12-13 09:26] VITALS: BP 114/63; PULSE 66; RESP 18; TEMP 36.2; O2SAT 95
[2017-12-13 09:51] VITALS: BP 120/71; PULSE 64; RESP 18; TEMP 36.5; O2SAT 97
[2017-12-13 11:01] VITALS: BP 134/75; PULSE 83; RESP 18; TEMP 36.2; O2SAT 97
[2017-12-13] MEDS: Immune Globulin 5 GM Premixed Solution IV (11:16)
== END ==
PROVIDERS: Family Provider Family Medicine; PCP Family Medicine; Referring Provider Internal Medicine Rheumatology; Visit Provider Internal Medicine Rheumatology
DX: M33.92 Dermatopolymyositis, unspecified with myopathy (principal)
CPT/HCPCS: 96365; 96366; A4216; J1568

== ENCOUNTER → 2017-12-14 07:56 | Outpatient (CLI) | payer MEDICARE, SELFPAY ==
[2017-12-14 08:03] VITALS: BP 148/73; PULSE 92; RESP 16; TEMP 37.1; BMI 26.4
[2017-12-14] MEDS: Immune Globulin 20 gm Premixed Solution IV ×2 (08:35→10:16)
[2017-12-14 09:05] VITALS: BP 136/74; PULSE 71
[2017-12-14 09:40] VITALS: BP 135/78; PULSE 72; RESP 16; TEMP 36.9; O2SAT 93
[2017-12-14 10:50] VITALS: BP 134/75; PULSE 67; RESP 16; TEMP 36.9; O2SAT 99
[2017-12-14] MEDS: Immune Globulin 5 GM Premixed Solution IV (11:28)
== END ==
PROVIDERS: Family Provider Family Medicine; PCP Family Medicine; Referring Provider Internal Medicine Rheumatology; Visit Provider Internal Medicine Rheumatology
DX: M33.92 Dermatopolymyositis, unspecified with myopathy (principal)
CPT/HCPCS: 96365; 96366; A4216; J1568

== ENCOUNTER → 2018-01-07 08:09 | Outpatient (CLI) | payer MEDICARE, SELFPAY ==
[2018-01-07 10:45] LABS: Anion Gap 8 (5-15); BUN 11 mg/dL (7-18); BUN/Creat Ratio 17.4 RATIO (10-20); Calcium,Total 9.3 mg/dL (8.5-10.1); Chloride 105 mmol/L (98-107); Creatinine, Serum 0.63 mg/dL (0.55-1.02); EST Glomerular Filtration Rate 96 mL/min (>60); Est Glom Filt Rate - Afr Amer 116 mL/min (>60); Glucose 94 mg/dL (74-106); Potassium 3.5 mmol/L (3.5-5.1); Sodium Level 138 mmol/L (136-145)
--- OUTSIDE RECORDS SUMMARY | 2018-03-02 08:05 | XMS RPT_ITS ---
:1935 Author Organization OHIP Support Name Relationship Address Phone ROSS QUINN Unavailable [address] + [place] [address] R Unavailable Unavailable Unavailable ROSS, QUINN Unavailable [address] + [place] [address] R Unavailable Unavailable Unavailable ROSS, QUINN Unavailable [address] + [place] [address] R Unavailable Unavailable Unavailable ROSS, QUINN Unavailable [address] + [place] [address] R Unavailable Unavailable Unavailable ROSS, QUINN Unavailable [address] + [place] [address] R Unavailable Unavailable Unavailable ROSS, QUINN Unavailable [address] + [place] [address] R Unavailable Unavailable Unavailable ROSS, QUINN Unavailable [address] + [place] [address] R Unavailable Unavailable Unavailable ROSS, QUINN Unavailable [address] + [place] [address] R Unavailable Unavailable Unavailable ROSS, QUINN Unavailable [address] + [place] [address] R Unavailable Unavailable Unavailable ROSS, QUINN Unavailable [address] + [place] [address] R Unavailable Unavailable Unavailable ROSS, QUINN Unavailable [address] + [place] [address] R Unavailable Unavailable Unavailable ROSS, QUINN Unavailable [address] + [place] [address] R Unavailable Unavailable Unavailable ROSS, QUINN Unavailable [address] + [place] [address] R Unavailable Unavailable Unavailable ROSS, QUINN Unavailable [address] + [place] [address] R Unavailable Unavailable Unavailable ROSS, QUINN Unavailable [address] + [place] [address] R Unavailable Unavailable Unavailable ROSS, QUINN Unavailable [address] + [place] [address] R Unavailable Unavailable Unavailable ROSS, QUINN Unavailable [address] + [place] [address] R Unavailable Unavailable Unavailable ROSS, QUINN Unavailable [address] + [place] [address] R Unavailable Unavailable Unavailable ROSS, QUINN Unavailable [address] [phone]~330-4 [place] [address] R Unavailable Unavailable Unavailable ROSS, QUINN Unavailable [address] [phone]~330-4 [place] [address] R Unavailable Unavailable Unavailable ROSS, QUINN Unavailable [address] [phone]~330-4 [place] [address] R Unavailable Unavailable Unavailable ROSS, QUINN Unavailable [address] [phone]~330-4 [place] [address] R Unavailable Unavailable Unavailable ROSS, QUINN Unavailable [address] [phone]~330-4 [place] [address] R Unavailable Unavailable Unavailable ROSS, QUINN Unavailable [address] [phone]~330-4 [place] [address] R Unavailable Unavailable Unavailable ROSS, QUINN Unavailable [address] [phone]~330-4 [place] [address] R Unavailable Unavailable Unavailable ROSS, QUINN Unavailable [address] [phone]~330-4 [place] [address] R Unavailable Unavailable Unavailable ROSS, QUINN Unavailable [address] [phone]~330-4 [place] [address] R Unavailable Unavailable Unavailable ROSS, QUINN Unavailable [address] [phone]~330-4 [place] [address] R Unavailable Unavailable Unavailable ROSS, QUINN Unavailable [address] [phone]~330-4 [place] [address] R Unavailable Unavailable Unavailable ROSS, QUINN Unavailable [address] [phone]~330-4 [place] [address] R Unavailable Unavailable Unavailable ROSS, QUINN Unavailable [address] [phone]~330-4 [place] [address] R Unavailable Unavailable Unavailable ROSS, QUINN Unavailable [address] [phone]~330-4 [place] [address] R Unavailable Unavailable Unavailable ROSS, QUINN Unavailable [address] [phone]~330-4 [place] [address] R Unavailable Unavailable Unavailable ROSS, QUINN Unavailable [address] [phone]~330-4 [place] [address] R Unavailable Unavailable Unavailable Care Team Providers Name Role Phone Vellanki, Natalie Attending Unavailable Vellanki, Natalie Referring Unavailable Malys, Catia Primary Care Unavailable Vellanki, Natalie Attending Unavailable Vellanki, Natalie Referring Unavailable Malys, Catia Primary Care Unavailable Vellanki, Natalie Attending Unavailable Korableva, Maday Referring Unavailable Malys, Catia Primary Care Unavailable Vellanki, Natalie Attending Unavailable Malys, Catia Primary Care Unavailable Vellanki, Natalie Attending Unavailable Vellanki, Nataile Referring Unavailable Malys, Catia Primary Care Unavailable Vellanki, Natalie Attending Unavailable Malys, Catia Primary Care Unavailable Vellanki, Natalie Referring Unavailable Vellanki, Natalie Attending Unavailable Malys, Catia Primary Care Unavailable Vellanki, Natalie Attending Unavailable Vellanki, Natalie Referring Unavailable Malys, Catia Primary Care Unavailable Vellanki, Natalie Attending Unavailable Vellanki, Natalie Referring Unavailable Malys, Catia Primary Care Unavailable Korableva, Maday Attending Unavailable Korableva, Maday Referring Unavailable Malys, Catia Primary Care Unavailable Vellanki, Natalie Attending Unavailable Vellanki, Natalie Referring Unavailable Malys, Catia Primary Care Unavailable Vellanki, Natalie Attending Unavailable Vellanki, Natalie Referring Unavailable Malys, Catia Primary Care Unavailable Vellanki, Natalie Attending Unavailable Vellanki, Natalie Referring Unavailable Malys, Catia Primary Care Unavailable Vellanki, Natalie Attending Unavailable Vellanki, Natalie Referring Unavailable Malys, Catia Primary Care Unavailable Vellanki, Natalie Attending Unavailable Vellanki, Natalie Referring Unavailable Malys, Catia Primary Care Unavailable Blake Mo Attending Unavailable Malys, Catia Primary Care Unavailable Calabretta, Blake Referring Unavailable Vellanki, Natalie Attending Unavailable Vellanki, Natalie Referring Unavailable Malys, Catia Primary Care Unavailable Vellanki, Natalie Attending Unavailable Vellanki, Natalie Referring Unavailable Malys, Catia Primary Care Unavailable Vellanki, Natalie Attending Unavailable Vellanki, Natalie Referring Unavailable Malys, Catia Primary Care Unavailable Vellanki, Natalie Attending Unavailable Vellanki, Natalie Referring Unavailable Malys, Catia Primary Care Unavailable Vellanki, Natalie Attending Unavailable Vellanki, Natalie Referring Unavailable Malys, Catia Primary Care Unavailable Vellanki, Natalie Attending Unavailable Vellanki, Natalie Referring Unavailable Malys, Catia Primary Care Unavailable Vellanki, Natalie Attending Unavailable Vellanki, Natalie Referring Unavailable Malys, Catia Primary Care Unavailable Vellanki, Natalie Attending Unavailable Vellanki, Natalie Referring Unavailable Malys, Catia Primary Care Unavailable Vellanki, Natalie Attending Unavailable Vellanki, Natalie Referring Unavailable Malys, Catia Primary Care Unavailable Malys, Catia Attending Unavailable Malys, Catia Primary Care Unavailable Vellanki, Natalie Attending Unavailable Vellanki, Natalie Referring Unavailable Malys, Catia Primary Care Unavailable Vellanki, Natalie Attending Unavailable Vellanki, Natalie Referring Unavailable Malys, Catia Primary Care Unavailable Vellanki, Natalie Attending Unavailable Vellanki, Natalie Referring Unavailable Malys, Catia Primary Care Unavailable Korableva, Maday Consulting Unavailable Vellanki, Natalie Attending Unavailable Vellanki, Natalie Referring Unavailable Malys, Catia Primary Care Unavailable Vellanki, Natalie Attending Unavailable Vellanki, Natalie Referring Unavailable Malys, Catia Primary Care Unavailable Vellanki, Natalie Attending Unavailable Vellanki, Natalie Referring Unavailable Malys, Catia Primary Care Unavailable Vellanki, Natalie Attending Unavailable Vellanki, Natalie Referring Unavailable Malys, Catia Primary Care Unavailable Korableva, Maday Attending Unavailable Korableva, Maday Referring Unavailable Malys, Catia Primary Care Unavailable PROBLEMS PROBLEMS DATE TYPE CONDITION / CODE ATTENDING STATUS SOURCE 01/07/2018 Unknown E03.8 - Other Korableva, Active [place] specified [facility] hypothy[facility] / [facility] E03.8(ICD-10) Repository 01/07/2018 Unknown E21.1 - Secondary Korableva, Active [place] hyperparathyroidism, [facility] not elsewhere Hospital classified / Repository E21.1(ICD-10) 10/18/2017 Unknown 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, [address] BASIC METABOLIC Collected: 01/07/2018 Status: F Source: [place] PROFILE (BMP) 8:14 AM [facility] REPOSITORY TYPE CODE TESTS RESULT OUT OF RANGE REFERENCE UNITS LAB L501.0100 74-106 mg/dL Normal GLU 94 Result Comment: Please note revised GLUCOSE reference range effective 2017. LAB L501.1000 7-18 mg/dL Normal BUN 11 LAB L501.1100 0.55-1.02 mg/dL Normal CREAT,SERUM 0.63 Result Comment: The validity of the calculated GFR AND GFRAA in patients over 70 years has not been determined. Clinical correlation is essential. LAB L501.1110 >60 mL/min Normal EST GFR 96 Result Comment: Non- GFR Calc LAB L501.1115 >60 mL/min Normal EST GFR - AA 116 Result Comment: GFR Calc LAB L501.1300 10-20 RATIO Normal BUN/CRE 17.4 LAB L501.2200 8.5-10.1 mg/dL CA Normal 9.3 LAB L501.5300 136-145 mmol/L NA Normal 138 LAB L501.5600 3.5-5.1 mmol/L K Normal 3.5 LAB L501.5900 98-107 mmol/L CL Normal 105 LAB L501.6100 21.0-32.0 mmol/L Normal CO2 25.0 LAB L501.6200 5-15 Normal GAP 8 Performed By: #### L500.2500 #### [facility] [address] [place], [place], [address] CBC W/DIFF, AUTOMATED Collected: 10/29/2017 Status: F Source: [place] 7:23 AM [facility] REPOSITORY Order Comment: DR GILLILAND ORDERED CMP/TSH/PTHIN/VITD DR HART ORDERED CBCD/CMP/CPK TYPE CODE TESTS RESULT OUT OF RANGE REFERENCE UNITS LAB L100.1000 4.4-11.0 K/mm3 Low WBC 3.6 LAB L100.1200 4.2-5.4 M/mm3 Low RBC 4.04 LAB L100.1300 12.0-15.0 g/dl Normal HGB 12.4 LAB L100.1400 37-47 % Normal HCT 37.0 LAB L100.1500 81-99 fL Normal MCV 91.6 LAB L100.1600 27.0-32.0 pg Normal MCH 30.7 LAB L100.1700 32-36 g/gl Normal MCHC 33.5 LAB L100.1810 11.6-14.6 % High RDW CV 16.0 LAB L100.1820 35.1-43.9 fl High RDW SD 50.3 LAB L100.1900 150-450 K/mm3 Normal PLT 243 LAB L100.2000 6.2-12.0 fl Normal MPV 9.4 LAB L100.2100 47-70 % Normal NEUT% 53.5 LAB L100.2200 19-41 % Normal LY% 25.8 LAB L100.2300 0-10 % High MONO% 19.2 LAB L100.2400 0-5 % Normal EO% 0.6 LAB L100.2500 0-1 % Normal BASO% 0.6 LAB L100.2550 0.0-0.9 % Normal IM GRAN % 0.300 Result Comment: IG% - Immature Granulocytes (promyelocytes, myelocytes and metamyelocytes) > 1% indicates that a LEFT SHIFT is Present. LAB L100.2620 2.0-7.7 X10 3/uL Low Absolute Neut 1.9 LAB L100.2720 0.83-4.51 X10 3/ul Normal Absolute Lymph 0.93 Performed By: #### L100.0100 #### [facility] [address] [place], [address] COMPREHENSIVE METABOLIC Collected: 10/29/2017 Status: F Source: [place] PROFIL 7:23 AM [facility] REPOSITORY Order Comment: DR GILLILAND ORDERED CMP/TSH/PTHIN/VITD DR HART ORDERED CBCD/CMP/CPK TYPE CODE TESTS RESULT OUT OF RANGE REFERENCE UNITS LAB L501.0100 74-106 mg/dL Normal GLU 85 Result Comment: Please note revised GLUCOSE reference range effective 2017. LAB L501.1000 7-18 mg/dL Normal BUN 13 LAB L501.1100 0.55-1.02 mg/dL Normal CREAT,SERUM 0.62 Result Comment: The validity of the calculated GFR AND GFRAA in patients over 70 years has not been determined. Clinical correlation is essential. LAB L501.1110 >60 mL/min Normal EST GFR 99 Result Comment: Non- GFR Calc LAB L501.1115 >60 mL/min Normal EST GFR - AA 120 Result Comment: GFR Calc LAB L501.1300 10-20 RATIO High BUN/CRE 21.1 LAB L501.1500 6.4-8.2 g/dL High T PROT 8.6 LAB L501.1800 3.2-5.0 g/dL Normal ALB 3.4 LAB L501.1950 2.2-4.2 g/dL High GLOB 5.2 LAB L501.2000 0.9-2.4 RATIO Low A/G 0.7 LAB L501.2200 8.5-10.1 mg/dL CA Normal 8.6 LAB L501.4100 15-37 U/L Normal AST 23 LAB L501.4305 45-117 U/L Normal ALK P 45 LAB L501.4405 13-56 U/L Normal ALT 32 LAB L501.4600 0.20-1.00 mg/dL T Normal BILI 0.50 LAB L501.5300 136-145 mmol/L NA Normal 139 LAB L501.5600 3.5-5.1 mmol/L K Normal 3.9 LAB L501.5900 98-107 mmol/L CL Normal 107 LAB L501.6100 21.0-32.0 mmol/L Normal CO2 25.0 LAB L501.6200 5-15 Normal GAP 7 Performed By: #### L500.4050, L501.3620, L501.9529 #### [facility] [address] [place], [address] CPK TOTAL, CREATINE Collected: 10/29/2017 Status: F Source: [place] KINASE 7:23 AM [facility] REPOSITORY Order Comment: DR GILLILAND ORDERED CMP/TSH/PTHIN/VITD DR HART ORDERED CBCD/CMP/CPK TYPE CODE TESTS RESULT OUT OF RANGE REFERENCE UNITS LAB L501.3620 26-192 U/L Normal CPK TOTAL 82 Performed By: #### L500.4050, L501.3620, L501.9520 #### [facility] [address] [place], [address] THYROID STIM HORMONE Collected: 10/29/2017 Status: F Source: [place] (TSH) 7:23 AM [facility] REPOSITORY Order Comment: DR GILLILAND ORDERED CMP/TSH/PTHIN/VITD DR HART ORDERED CBCD/CMP/CPK TYPE CODE TESTS RESULT OUT OF RANGE REFERENCE UNITS LAB L501.9520 0.358-3.74 uIU/mL Normal TSH 1.18 Performed By: #### L500.4050, L501.3620, L501.9520 #### [facility] [address] [place], [address] VITAMIN D,25 HYDROXY Collected: 10/29/2017 Status: F Source: [place] 7:23 AM [facility] REPOSITORY Order Comment: DR GILLILAND ORDERED CMP/TSH/PTHIN/VITD DR HART ORDERED CBCD/CMP/CPK TYPE CODE TESTS RESULT OUT OF RANGE REFERENCE UNITS LAB L506.1000 29.95-100.01 ng/mL Normal Vitamin D 62.6 25-OH Result Comment: Vitamin D 25(OH) Status Range Deficiency <20 ng/mL (50nmol/L) Insuffciency 20 - 30 ng/mL (50 - 75 nmol/L) Sufficiency 30 - 100 ng/mL (75 - 250 nmol/L) Toxicity >100 ng/mL (>250 nmol/L) Performed By: #### L506.1000 #### [facility] [address] [place], [address] PTHIN Collected: 10/29/2017 Status: F Source: ONG 7:23 AM [facility] REPOSITORY Order Comment: DR GILLILAND ORDERED CMP/TSH/PTHIN/VITD DR HART ORDERED CBCD/CMP/CPK TYPE CODE TESTS RESULT OUT OF RANGE REFERENCE UNITS LAB L509.1000 18.4-80.1 pg/mL High PTHIN 119.4 Performed By: #### L509.1000 #### [facility] [address] [place], [address] UNILAT RT SCRN Observed: 10/04/2017 Status: F Source: [place] W/CAD 8:30 AM [facility] REPOSITORY [facility] Imaging Services [address] [place] [address] UNILAT RT SCRN W/CAD MR#: [id number] Acct: [id number] Name: PAULETTE DOUGLAS Rep #: [id number] : 1935 F 82 From: Jose Jackson MD PCP: Catia Christian DO Status: REG CLI Study: UNILAT RT SCRN W/CAD Date of Exam: 10/04/17 Exam# [id number] Ordering Dr: Catia Christian DO MAMMOGRAPHY - UNILATERAL SCREENING: RIGHT BREAST REASON FOR EXAM: Female, 82 years old. Routine annual screening examination (unilateral). PERTINENT HISTORY: Sister with breast cancer. Prior left excisional breast biopsy and left stereotactic breast biopsy. TECHNIQUE: Digital unilateral breast hope (3D mammographic acquisition) in the CC and MLO projections. 2-D mediolateral oblique (MLO) and craniocaudad (CC) views of both breasts were obtained. CAD: Full Field Digital Mammography with Computer Added Detection was performed. COMPARISON: Comparison is made with prior examination dated October 03, 2016 and October 11, 2016. FINDINGS: Breast Composition: There are scattered areas of fibroglandular density. There are no dominant masses or suspicious calcifications. Stable secretory calcification in the right breast as well as a small calcified nodule in the slightly superior anterior medial portion of the breast. No other significant abnormalities are identified. There has been no significant change since the prior study. BI/UNILAT RT SCRN W/CAD IMPRESSION: Stable unilateral screening mammogram. Yearly follow-up mammogram recommended. (A) ASSESSMENT CATEGORY: BIRADS Category 2: Benign. A letter regarding these results will be sent to the patient by the facility within 30 days. Approximately 10% of breast cancers are not detected by mammography. A normal mammogram should not delay biopsy of a clinically suspicious abnormality. [id number] Electronically Signed: Jose Jackson MD at 10:23 EDT Tel [phone], Service support , CC: Catia Christian DO [facility] Worker: Signed CBC W/DIFF, AUTOMATED Collected: 08/09/2017 Status: F Source: [place] 7:49 AM [facility] REPOSITORY TYPE CODE TESTS RESULT OUT OF RANGE REFERENCE UNITS LAB L100.1000 4.4-11.0 K/mm3 Low WBC 4.1 LAB L100.1200 4.2-5.4 M/mm3 Normal RBC 4.25 LAB L100.1300 12.0-15.0 g/dl Normal HGB 12.8 LAB L100.1400 37-47 % Normal HCT 39.0 LAB L100.1500 81-99 fL Normal MCV 91.8 LAB L100.1600 27.0-32.0 pg Normal MCH 30.1 LAB L100.1700 32-36 g/gl Normal MCHC 32.8 LAB L100.1810 11.6-14.6 % High RDW CV 16.0 LAB L100.1820 35.1-43.9 fl High RDW SD 52.4 LAB L100.1900 150-450 K/mm3 Normal PLT 255 LAB L100.2000 6.2-12.0 fl Normal MPV 9.6 LAB L100.2100 47-70 % Normal NEUT% 57.0 LAB L100.2200 19-41 % Normal LY% 20.4 LAB L100.2300 0-10 % High MONO% 17.5 LAB L100.2400 0-5 % Normal EO% 3.4 LAB L100.2500 0-1 % High BASO% 1.5 LAB L100.2550 0.0-0.9 % Normal IM GRAN % 0.200 Result Comment: IG% - Immature Granulocytes (promyelocytes, myelocytes and metamyelocytes) > 1% indicates that a LEFT SHIFT is Present. LAB L100.2620 2.0-7.7 X10 3/uL Normal Absolute Neut 2.4 LAB L100.2720 0.83-4.51 X10 3/ul Normal Absolute Lymph 0.84 Performed By: #### L100.0100 #### [facility] [address] [place], [address] COMPREHENSIVE METABOLIC Collected: 08/09/2017 Status: F Source: [place] JARRETT 7:49 AM [facility] REPOSITORY TYPE CODE TESTS RESULT OUT OF RANGE REFERENCE UNITS LAB L501.0100 74-106 mg/dL Normal GLU 86 Result Comment: Please note revised GLUCOSE reference range effective 2017. LAB L501.1000 7-18 mg/dL Normal BUN 14 LAB L501.1100 0.55-1.02 mg/dL Normal CREAT,SERUM 0.67 Result Comment: The validity of the calculated GFR AND GFRAA in patients over 70 years has not been determined. Clinical correlation is essential. LAB L501.1110 >60 mL/min Normal EST GFR 90 Result Comment: Non- GFR Calc LAB L501.1115 >60 mL/min Normal EST GFR - AA 109 Result Comment: GFR Calc LAB L501.1300 10-20 RATIO High BUN/CRE 20.9 LAB L501.1500 6.4-8.2 g/dL T Normal PROT 8.2 LAB L501.1800 3.2-5.0 g/dL Normal ALB 3.4 LAB L501.1950 2.2-4.2 g/dL High GLOB 4.8 LAB L501.2000 0.9-2.4 RATIO Low A/G 0.7 LAB L501.2200 8.5-10.1 mg/dL CA Normal 9.4 LAB L501.4100 15-37 U/L Normal AST 29 LAB L501.4305 45-117 U/L Normal ALK P 50 LAB L501.4405 13-56 U/L Normal ALT 33 LAB L501.4600 0.20-1.00 mg/dL T Normal BILI 0.70 LAB L501.5300 136-145 mmol/L NA Normal 140 LAB L501.5600 3.5-5.1 mmol/L K Normal 3.8 LAB L501.5900 98-107 mmol/L CL Normal 104 LAB L501.6100 21.0-32.0 mmol/L Normal CO2 28.0 LAB L501.6200 5-15 Normal GAP 8 Performed By: #### L500.4050, L501.3620 #### [facility] [address] [place], [address] CPK TOTAL, CREATINE Collected: 08/09/2017 Status: F Source: ONG KINASE 7:49 AM [facility] REPOSITORY TYPE CODE TESTS RESULT OUT OF RANGE REFERENCE UNITS LAB L501.3620 26-192 U/L Normal CPK TOTAL 71 Performed By: #### L500.4050, L501.3620 #### [facility] [address] [place], [address] DIAG MAMM W/CAD, Observed: 06/18/2017 Status: F Source: ONG UNILAT 9:46 AM [facility] REPOSITORY [facility] Imaging Services [address] [place] [address] DIAG MAMM W/CAD, UNILAT MR#: [id number] Acct: [id number] Name: PAULETTE DOUGLAS Rep #: [id number] : 1935 F 81 From: Jose Jackson MD PCP: Catia Christian DO Status: REG CLI Study: DIAG MAMM W/CAD, UNILAT Date of Exam: 06/18/17 Exam# [id number] Ordering Dr: Blake Mo MD MAMMOGRAPHY - UNILATERAL DIAGNOSTIC: LEFT BREAST REASON FOR EXAM: Female, 81 years old. Six-month follow- up for stereotactic biopsy of the calcifications in the left breast. PERTINENT HISTORY: Sister with breast cancer. Patient has a history of autoimmune dermatomyositis. TECHNIQUE: Digital unilateral breast hope (3D mammographic acquisition) in the CC and MLO projections. 2-D mediolateral oblique (MLO) and craniocaudad (CC) views of both breasts were obtained. CAD: Full Field Digital Mammography with Computer Added Detection was performed. COMPARISON: Comparison is made with prior study dated October 03, 2016 and September 15, 2015. FINDINGS: Breast Composition: There are scattered areas of fibroglandular density. There are no dominant masses or suspicious calcifications. A tissue clip marker from prior stereotactic biopsy is seen within the calcifications in the deep upper portion of the left breast. The calcifications have decreased in number since prior study. Stable skin calcification overlying the lower aspect of the left breast. No other significant abnormalities are identified. BI/DIAG MAMM W/CAD, UNILAT IMPRESSION: Stable unilateral diagnostic mammogram. One year follow-up mammogram recommended. (A) ASSESSMENT CATEGORY: BIRADS Category 2: Benign. A letter regarding these results will be sent to the patient by the facility within 30 days. Approximately 10% of breast cancers are not detected by mammography. A normal mammogram should not delay biopsy of a clinically suspicious abnormality. Electronically Signed: Jose Jackson MD at 11:02 EDT Tel [phone], Service support , CC: Blake Mo MD; Catia Christian DO [facility] Worker: Signed CBC W/DIFF, AUTOMATED Collected: 05/10/2017 Status: F Source: [place] 8:31 AM [facility] REPOSITORY TYPE CODE TESTS RESULT OUT OF RANGE REFERENCE UNITS LAB L100.1000 4.4-11.0 K/mm3 Low WBC 4.0 LAB L100.1200 4.2-5.4 M/mm3 Low RBC 4.12 LAB L100.1300 12.0-15.0 g/dl Normal HGB 12.1 LAB L100.1400 37-47 % Normal HCT 37.6 LAB L100.1500 81-99 fL Normal MCV 91.3 LAB L100.1600 27.0-32.0 pg Normal MCH 29.4 LAB L100.1700 32-36 g/gl Normal MCHC 32.2 LAB L100.1810 11.6-14.6 % High RDW CV 15.8 LAB L100.1820 35.1-43.9 fl High RDW SD 50.9 LAB L100.1900 150-450 K/mm3 Normal PLT 225 LAB L100.2000 6.2-12.0 fl Normal MPV 9.1 LAB L100.2100 47-70 % Normal NEUT% 53.1 LAB L100.2200 19-41 % Normal LY% 24.3 LAB L100.2300 0-10 % High MONO% 16.8 LAB L100.2400 0-5 % Normal EO% 4.0 LAB L100.2500 0-1 % High BASO% 1.3 LAB L100.2550 0.0-0.9 % Normal IM GRAN % 0.500 Result Comment: IG% - Immature Granulocytes (promyelocytes, myelocytes and metamyelocytes) > 1% indicates that a LEFT SHIFT is Present. LAB L100.2620 2.0-7.7 X10 3/uL Normal Absolute Neut 2.1 LAB L100.2720 0.83-4.51 X10 3/ul Normal Absolute Lymph 0.97 Performed By: #### L100.0100 #### [facility] [address] [place], [address] COMPREHENSIVE METABOLIC Collected: 05/10/2017 Status: F Source: [facility] 8:31 AM [facility] REPOSITORY TYPE CODE TESTS RESULT OUT OF RANGE REFERENCE UNITS LAB L501.0100 74-106 mg/dL Normal GLU 84 Result Comment: Please note revised GLUCOSE reference range effective 2017. LAB L501.1000 7-18 mg/dL Normal BUN 16 LAB L501.1100 0.55-1.02 mg/dL Normal CREAT,SERUM 0.58 Result Comment: The validity of the calculated GFR AND GFRAA in patients over 70 years has not been determined. Clinical correlation is essential. LAB L501.1110 >60 mL/min Normal EST GFR 106 Result Comment: Non- GFR Calc LAB L501.1115 >60 mL/min Normal EST GFR - AA 128 Result Comment: GFR Calc LAB L501.1300 10-20 RATIO High BUN/CRE 27.6 LAB L501.1500 6.4-8.2 g/dL T Normal PROT 8.2 LAB L501.1800 3.2-5.0 g/dL Normal ALB 3.4 LAB L501.1950 2.2-4.2 g/dL High GLOB 4.8 LAB L501.2000 0.9-2.4 RATIO Low A/G 0.7 LAB L501.2200 8.5-10.1 mg/dL CA Normal 8.8 LAB L501.4100 15-37 U/L Normal AST 32 LAB L501.4305 45-117 U/L Normal ALK P 45 LAB L501.4405 13-56 U/L Normal ALT 38 Result Comment: Please note revised ALT reference range effective 2017. LAB L501.4600 0.20-1.00 mg/dL Normal T BILI 0.30 LAB L501.5300 136-145 mmol/L Normal NA 138 LAB L501.5600 3.5-5.1 mmol/L Normal K 3.8 LAB L501.5900 98-107 mmol/L Normal CL 105 LAB L501.6100 21.0-32.0 mmol/L Normal CO2 26.0 LAB L501.6200 5-15 Normal GAP 7 Performed By: #### L500.4050, L501.3620 #### [facility] [address] [place], [address] CPK TOTAL, CREATINE Collected: 05/10/2017 Status: F Source: ONG KINASE 8:31 AM [facility] REPOSITORY TYPE CODE TESTS RESULT OUT OF RANGE REFERENCE UNITS LAB L501.3620 26-192 U/L Normal CPK TOTAL 149 Performed By: #### L500.4050, L501.3620 #### [facility] [address] [facility] [place], [address] PTHIN Collected: 04/27/2017 Status: F Source: STANISLAV 7:52 AM [facility] REPOSITORY TYPE CODE TESTS RESULT OUT OF RANGE REFERENCE UNITS LAB L509.1000 18.4-80.1 pg/mL Normal PTHIN 73.4 Result Comment: Please Note: PTH INTACT METHOD AND REFERENCE RANGE CHANGE Effective 01/24/2017. Performed By: #### L509.1000 #### [facility] [place], [address] COMPREHENSIVE METABOLIC Collected: 04/27/2017 Status: F Source: STANISLAV [facility] 7:52 AM [facility] REPOSITORY TYPE CODE TESTS RESULT OUT OF RANGE REFERENCE UNITS LAB L501.0100 74-106 mg/dL Normal GLU 87 Result Comment: Please note revised GLUCOSE reference range effective 2017. LAB L501.1000 7-18 mg/dL Normal BUN 15 LAB L501.1100 0.55-1.02 mg/dL Normal CREAT,SERUM 0.59 Result Comment: The validity of the calculated GFR AND GFRAA in patients over 70 years has not been determined. Clinical correlation is essential. LAB L501.1110 >60 mL/min Normal EST GFR 105 Result Comment: Non- GFR Calc LAB L501.1115 >60 mL/min Normal EST GFR - AA 127 Result Comment: GFR Calc LAB L501.1300 10-20 RATIO High BUN/CRE 25.6 LAB L501.1500 6.4-8.2 g/dL T Normal PROT 7.7 LAB L501.1800 3.2-5.0 g/dL Normal ALB 3.4 LAB L501.1950 2.2-4.2 g/dL High GLOB 4.3 LAB L501.2000 0.9-2.4 RATIO Low A/G 0.8 LAB L501.2200 8.5-10.1 mg/dL CA Normal 8.6 LAB L501.4100 15-37 U/L Normal AST 24 LAB L501.4305 45-117 U/L Normal ALK P 49 LAB L501.4405 13-56 U/L Normal ALT 33 Result Comment: Please note revised ALT reference range effective 2017. LAB L501.4600 0.20-1.00 mg/dL Normal T BILI 0.50 LAB L501.5300 136-145 mmol/L Normal NA 139 LAB L501.5600 3.5-5.1 mmol/L Normal K 3.5 LAB L501.5900 98-107 mmol/L Normal CL 104 LAB L501.6100 21.0-32.0 mmol/L Normal CO2 27.0 LAB L501.6200 5-15 Normal GAP 8 Performed By: #### L500.4050, L501.9520 #### [facility] [address] [place], [place], [address] THYROID STIM HORMONE Collected: 04/27/2017 Status: F Source: STANISLAV (TSH) 7:52 AM [facility] REPOSITORY TYPE CODE TESTS RESULT OUT OF RANGE REFERENCE UNITS LAB L501.9520 0.358-3.74 uIU/mL Normal TSH 1.76 Performed By: #### L500.4050, L501.9520 #### [facility] [address] [place], [address] CBC W/DIFF, AUTOMATED Collected: 02/14/2017 Status: F Source: STANISLAV 7:46 AM [facility] REPOSITORY Order Comment: DR HART ORDERED CBCD/CMP/CPK DR MIRANDA ORDERED CMP/PTHIN TYPE CODE TESTS RESULT OUT OF RANGE REFERENCE UNITS LAB L100.1000 4.4-11.0 K/mm3 Normal WBC 7.3 LAB L100.1200 4.2-5.4 M/mm3 Normal RBC 4.22 LAB L100.1300 12.0-15.0 g/dl Normal HGB 12.8 LAB L100.1400 37-47 % Normal HCT 39.7 LAB L100.1500 81-99 fL Normal MCV 94.1 LAB L100.1600 27.0-32.0 pg Normal MCH 30.3 LAB L100.1700 32-36 g/gl Normal MCHC 32.2 LAB L100.1810 11.6-14.6 % High RDW CV 16.4 LAB L100.1820 35.1-43.9 fl High RDW SD 55.0 LAB L100.1900 150-450 K/mm3 Normal PLT 274 LAB L100.2000 6.2-12.0 fl Normal MPV 9.6 LAB L100.2100 47-70 % High NEUT% 73.7 LAB L100.2200 19-41 % Low LY% 12.7 LAB L100.2300 0-10 % High MONO% 10.5 LAB L100.2400 0-5 % Normal EO% 2.1 LAB L100.2500 0-1 % Normal BASO% 0.7 LAB L100.2550 0.0-0.9 % Normal IM GRAN % 0.300 Result Comment: IG% - Immature Granulocytes (promyelocytes, myelocytes and metamyelocytes) > 1% indicates that a LEFT SHIFT is Present. LAB L100.2620 2.0-7.7 X10 3/uL Normal Absolute Neut 5.4 LAB L100.2720 0.83-4.51 X10 3/ul Normal Absolute Lymph 0.92 Performed By: #### L100.0100 #### [facility] [address] [place], [address] COMPREHENSIVE METABOLIC Collected: 02/14/2017 Status: F Source: STANISLAV JARRETT 7:46 AM [facility] REPOSITORY Order Comment: DR HART ORDERED CBCD/CMP/CPK DR MIRANDA ORDERED CMP/PTHIN TYPE CODE TESTS RESULT OUT OF RANGE REFERENCE UNITS LAB L501.0100 70-110 mg/dL High GLU 159 Result Comment: Fasting Glucose result greater than or equal to 126 mg/dL suggests DIABETES MELLITUS per A.D.A. criteria. LAB L501.1000 7-18 mg/dL Normal BUN 12 LAB L501.1100 0.55-1.02 mg/dL Normal CREAT,SERUM 0.70 Result Comment: The validity of the calculated GFR AND GFRAA in patients over 70 years has not been determined. Clinical correlation is essential. LAB L501.1110 >60 mL/min Normal EST GFR 86 Result Comment: Non- GFR Calc LAB L501.1115 >60 mL/min Normal EST GFR - AA 104 Result Comment: GFR Calc LAB L501.1300 10-20 RATIO Normal BUN/CRE 17.2 LAB L501.1500 6.4-8.2 g/dL T Normal PROT 8.0 LAB L501.1800 3.4-5.0 g/dL Normal ALB 3.5 Result Comment: Please note revised Albumin AND Globulin reference range effective 2016. LAB L501.1950 2.2-4.2 g/dL High GLOB 4.5 LAB L501.2000 0.9-2.4 RATIO Low A/G 0.8 LAB L501.2200 8.5-10.1 mg/dL Normal CA 9.5 LAB L501.4100 15-37 U/L Normal AST 21 LAB L501.4305 45-117 U/L Normal ALK P 75 LAB L501.4405 12-78 U/L Normal ALT 30 LAB L501.4600 0.20-1.00 mg/dL Normal T BILI 0.30 LAB L501.5300 136-145 mmol/L Normal NA 138 LAB L501.5600 3.5-5.1 mmol/L Low K 3.2 LAB L501.5900 98-107 mmol/L Normal CL 104 LAB L501.6100 21.0-32.0 mmol/L Normal CO2 28.0 LAB L501.6200 5-15 Normal GAP 6 Performed By: #### L500.4050, L501.3620 #### [facility] [address] [facility] [place], [address] CPK TOTAL, CREATINE Collected: 02/14/2017 Status: F Source: STANISLAV KINASE 7:46 AM [facility] REPOSITORY Order Comment: DR HART ORDERED CBCD/CMP/CPK DR MIRANDA ORDERED CMP/PTHIN TYPE CODE TESTS RESULT OUT OF RANGE REFERENCE UNITS LAB L501.3620 26-192 U/L Normal CPK TOTAL 60 Performed By: #### L500.4050, L501.3620 #### [facility] [address] [place], [address] PTHIN Collected: 02/14/2017 Status: F Source: STANISLAV 7:46 AM [facility] REPOSITORY Order Comment: DR HART ORDERED CBCD/CMP/CPK DR MIRANDA ORDERED CMP/PTHIN TYPE CODE TESTS RESULT OUT OF RANGE REFERENCE UNITS LAB L509.1000 18.4-80.1 pg/mL Normal PTHIN 34.4 Result Comment: Please Note: PTH INTACT METHOD AND REFERENCE RANGE CHANGE Effective 01/24/2017. Performed By: #### L509.1000 #### [facility] [place], [address] ALLERGIES ALLERGIES DATE TYPE / CODE NAME / CODE REACTION SEVERITY SOURCE 06/27/2017 Drug No Known Unknown [place] Allergy/4160 Allergies/F00 Hospital 17850(SNOMED 9449269(RXNOR Repository CT) M) ENCOUNTERS ENCOUNTERS ADMIT/DISCHARGE ACCOUNT ADMITTING ENCOUNTER LOCATION SOURCE NUMBER CLASS 01/18/2018 [id number] Ambulatory [place] 2 [facility] Hospital ing:MEDOUTP Repository 01/17/2018 [id number] Ambulatory [place] [facility] Hospital ing:MEDOUTP Repository 01/07/2018 [id number] Ambulatory [place] 5 [facility] Hospital ing:MTLAB Repository 12/14/2017 [id number] Ambulatory [place] 8 [facility] Hospital ing:MEDOUTP Repository 12/13/2017 [id number] Ambulatory [place] 9 [facility] Hospital ing:MEDOUTP Repository 11/16/2017 [id number] Amb[place] [facility] Hospital ing:MEDOUTP Repository 11/15/2017 [id number] Ambulatory [place] 5 [facility] Hospital ing:MEDOUTP Repository 10/29/2017 [id number] Ambulatory [place] 3 [facility] Hospital ing:MTLAB Repository 10/19/2017 [id number] Ambulatory [place] 4 [facility] Hospital ing:MEDOUTP Repository 10/18/2017 [id number] Ambulatory [place] 1 [facility] Hospital ing:MEDOUTP Repository 10/04/2017 [id number] Amb[place] [facility] Hospital ing:OPBI Repository 09/21/2017 [id number] Ambulatory [place] 5 [facility] Hospital ing:MEDOUTP Repository 09/20/2017 [id number] Amb[place] 4 [facility] Hospital ing:MEDOUTP Repository 08/24/2017 [id number] [facility] [place] [facility] Repository 08/23/2017 [id number] Ambulatory [place] 6 [facility] ing[facility] Repository 08/09/2017 [id number] Ambulatory [place] 6 [facility] ing:MTLAB Repository 07/27/2017 [id number] Ambulatory [place] 9 [facility] ing:MED[facility]P Repository 07/26/2017 [id number] Amb[place] [facility] ing:MED[facility]P Repository 06/28/2017 [id number] Ambulatory [place] 3 [facility] ing:MED[facility]P Repository 06/27/2017 [id number] Ambulatory [place] 4 [facility] ing:MED[facility]P Repository 06/18/2017 [id number] Ambulatory [place] 6 [facility] ing:OPBI Repository 05/31/2017 [id number] Ambulatory [place] 2 [facility] ing:MED[facility]P Repository 05/30/2017 [id number] Ambulatory [place] 0 [facility] ing:MED[facility]P Repository 05/10/2017 [id number] Ambulatory [place] 5 [facility] ing:MTLAB Repository 05/03/2017 [id number] Ambulatory [place] 2 [facility] ing:MED[facility]P Repository 05/02/2017 [id number] Ambulatory [place] 9 [facility] ing:MED[facility]P Repository 04/27/2017 [id number] Ambulatory [place] 9 [facility] ing:MTLAB Repository 04/04/2017 [id number] Ambulatory [place] 9 [facility] ing:MED[facility]P Repository 04/03/2017 [id number] Ambulatory [place] 0 [facility] ing:MED[facility]P Repository 03/07/2017 [id number] Ambulatory [place] 6 [facility] ing:MED[facility]P Repository 03/06/2017 [id number] Ambulatory [place] 5 [facility] ing:MED[facility]P Repository 02/27/2017 [id number] Ambulatory [place] 3 [facility] ing:MED[facility]P Repository 02/26/2017 [id number] Ambulatory [place] 2 [facility] ing:MEDOUTP Repository 02/14/2017 [id number] Ambulatory [place] 7 [facility] ing:MTLAB Repository PAYERS PAYERS ENCOUNTER GUARANTOR PAYER SUBSCRIBER SOURCE 01/18/2018 PAULETTE Tom Primary PAULETTE Tom [place] [id number] Insurance:ANNABELLA DILYARDDOB: [id number] [facility] Center Number: Repository [address] [place] [id number]: (330) Date:3408-16-64[address] (HP) [address], [place] [address]QL: 01/18/2018 Secondary NOT GIVENUNK [place] Insurance:SELF PAY [facility] Number: Effective Repository Date:2017-12-14 01/17/2018 PAULETTE Tom Primary PAULETTE Tom [place] [id number] Insurance:ANNABELLA DILYARDDOB: [facility] [id number] Medical Center Number: Repository [address] [place] [id number]: (330) Date:9970-07-49ZB [phone] (HP) [address], [place] [address]LM: 01/17/2018 Secondary NOT GIVENUNK [place] Insurance:SELF PAY [facility] Number: Effective Repository Date:2017-12-14 01/07/2018 PAULETTE Tom Primary PAULETTE Tom [place] [id number] Insurance:ANNABELLA DILYARDDOB: [facility] [id number] Medical Center Number: [place]ository [address] [id number]: (330) Date:1743-02-82VO [phone] (HP) [address], [place] [address]QA: 01/07/2018 Secondary NOT GIVENUNK [place] Insurance:SELF PAY [facility] Number: Effective Repository Date:2018-01-07 12/14/2017 PAULETTE Tmo Primary PAULETTE Tom [place] [id number] Insurance:ANNABELLA DILYARDDOB: [facility] [id number] Medical Center Number: Repository [address] [id number]: (330) Date:6881-75-19FY [address] () [address], [place] [address]NV: 12/14/2017 Secondary NOT GIVENUNK [place] Insurance:SELF PAY [facility] Number: Effective Repository Date:2017-11-16 12/13/2017 PAULETTE Tom Primary PAULETTE Tom [place] [id number] Insurance:ANNABELLA DILYARDDOB: [facility] [id number] Medical Center Number: Repository [address] [place] [id number]: (330) Date:2692-47-54MG [address] (HP) [address], [place] [address]BE: 12/13/2017 Secondary NOT GIVENUNK [place] Insurance:SELF PAY [facility] Number: Effective Repository Date:2017-11-16 11/16/2017 PAULETTE Tom Primary PAULETTE Tom [place] [id number] Insurance:ANNABELLA DILYARDDOB: [facility] [id number] Medical Center Number: [place]ository [address] [id number] [address]Elx: (330) Date:8744-95-45LK [address] (HP) [address], [place] [address]PL: 11/16/2017 Secondary NOT GIVENUNK [place] Insurance:SELF PAY [facility] Number: Effective Repository Date:2017-10-19 11/15/2017 PAULETTE Tom Primary PAULETTE Tom [place] [id number] Insurance:ANNABELLA DILYARDDOB: [facility] [id number] Medical Center Number: Repository [address] [id number]: (330) Date:6968-22-86NY [address] ([place]) [address] [address]DO: 11/15/2017 Secondary NOT GIVENUNK [place] Insurance:SELF PAY [facility] Number: Effective Repository Date:2017-10-19 10/29/2017 PAULETTE Tom Primary PAULETTE Tom [place] [id number] Insurance:ANNABELLA DILYARDDOB: [facility] [id number] Medical Center Number: Repository [address] [id number] [address]Ydt: (330) Date:9039-70-87XP [address] (HP) [address], [place] [address]IS: 10/29/2017 Secondary NOT GIVENUNK [place] Insurance:SELF PAY [facility] Number: Effective Repository Date:2017-10-29 10/19/2017 Paulette Tom Primary PAULETTE Tmo [place] [id number] Insurance:ANNABELLA DILYARDDOB: [facility] [id number] Medical Center Number: Repository [address] [id number]: (330) Date:8953-53-93[address] ([place]) [address] [address]CX: 10/19/2017 Secondary NOT GIVENUNK [place] Insurance:SELF PAY [facility] Number: Effective Repository Date:2017-09-21 10/18/2017 Paulette Tom Primary PAULETTE [place] [id number] Insurance:ANNABELLA DILYARDDOB: [facility] [id number] Medical Center Number: Repository [address] [id number]: (330) Date:7746-31-22EZ [address] (HP) [address], [place] [address]ZR: 10/18/2017 Secondary NOT GIVENUNK [place] Insurance:SELF PAY [facility] Number: Effective Repository Date:2017-09-21 10/04/2017 Paulette Tom Primary PAULETTE Tom [place] [id number] Insurance:ANNABELLA DILYARDDOB: [facility] [id number] [facility] Number: Repository [address] [id number] [address]Wua: (330) Date:3560-63-49CH [phone] (HP) [place] [address]SM: 10/04/2017 Secondary NOT GIVENUNK [place] Insurance:SELF PAY [facility] Number: Effective Repository Date:2017-09-03 09/21/2017 Paulette Tom Primary PAULETTE Tom [place] [id number] Insurance:ANNABELLA DILYARDDOB: [facility] [id number] Eagle River Memorial Hospital Number: Repository [address] [id number]: (330) Date:4183-18-91UQ [phone] (HP) [address] [address]TU: 09/21/2017 Secondary NOT GIVENUNK [place] Insurance:SELF PAY [facility] Number: Effective Repository Date:2017-08-24 09/20/2017 Paulette Tom Primary PAULETTE Tom [place] [id number] Insurance:ANNABELLA DILYARDDOB: [facility] [id number] Medical Center Number: Repository [address] [id number] [address]Giq: (330) Date:6323-28-52MZ [phone] (HP) [place] [address]CS: 09/20/2017 Secondary NOT GIVENUNK [place] Insurance:SELF PAY [facility] Number: Effective Repository Date:2017-08-24 08/24/2017 Paulette Tom Primary PAULETTE M [place] [id number] Insurance:ANNABELLA DILYARDDOB: [facility] [id number] Eagle River Memorial Hospital Number: Repository [address] [id number] [address]Owp: (330) Date:8181-00-13BI [address] (HP) [address], [place] [address]LS: 08/24/2017 Secondary NOT GIVENUNK [place] Insurance:SELF PAY [facility] Number: Effective Repository Date:2017-07-27 08/23/2017 Paulette Tom Primary PAULETTE Tom [place] [id number] Insurance:ANNABELLA DILYARDDOB: [facility] [id number] Eagle River Memorial Hospital Number: Repository [address] [place] [id number] [address]Oxh: (330) Date:5391-89-72QF [address] (HP) [address] [address]TP: 08/23/2017 Secondary NOT GIVENUNK [place] Insurance:SELF PAY [facility] Number: Effective Repository Date:2017-07-27 08/09/2017 Paulette Tom Primary PAULETTE Tom [place] [id number] Insurance:ANNABELLA DILYARDDOB: [facility] [id number] Eagle River Memorial Hospital Number: Repository [address] [place] [id number] [address]Vzy: (330) Date:6198-59-76CV [address] ([address]) [address] [address]BK: 08/09/2017 Secondary NOT GIVENUNK [place] Insurance:SELF PAY [facility] Number: Effective Repository Date:2017-08-09 07/27/2017 Paulette Tom Primary PAULETTE Tom [place] [id number] Insurance:ANNABELLA DILYARDDOB: [facility] [id number] Eagle River Memorial Hospital Number: Repository [address] [id number] [address]Xsb: (330) Date:4165-14-37GQ [address] (HP) [address] [address]ZV: 07/27/2017 Secondary NOT GIVENUNK [place] Insurance:SELF PAY [facility] Number: Effective Repository Date:2017-06-28 07/26/2017 Paulette Tom Primary PAULETTE Tom [place] [id number] Insurance:ANNABELLA DILYARDDOB: [facility] [id number] Eagle River Memorial Hospital Number: Repository [address] [id number] [address]Ixl: (330) Date:5687-01-73ZJ [address] (HP) [address] [address]LD: 07/26/2017 Secondary NOT GIVENUNK [place] Insurance:SELF PAY [facility] Number: Effective Repository Date:2017-06-28 06/28/2017 Paulette Tom Primary PAULETTE Tom [place] [id number] Insurance:ANNABELLA DILYARDDOB: [facility] [id number] Eagle River Memorial Hospital Number: Repository [address] [id number] [address]Cdx: (330) Date:8478-39-90LB [phone] (HP) [address] [address]WS: 06/28/2017 Secondary NOT GIVENUNK [place] Insurance:SELF PAY [facility] Number: Effective Repository Date:2017-05-31 06/27/2017 Paulette Tom Primary PAULETTE Tom [place] [id number] Insurance:ANNABELLA DILYARDDOB: [facility] [id number] Eagle River Memorial Hospital Number: Repository [address] [id number] [address]Gwu: (330) Date:8216-56-40ZY [phone] (HP) [address] [address]VS: 06/27/2017 Secondary NOT GIVENUNK [place] Insurance:SELF PAY [facility] Number: Effective Repository Date:2017-05-31 06/18/2017 Paulette Tom Primary PAULETTE Tom [place] [id number] Insurance:ANNABELLA DILYARDDOB: [facility] 6691-85-35PIHAscension Eagle River Memorial Hospital Number: Repository [address] [id number] [address]Ysg: (330) Date:0285-74-73UO [address] () [address] [address]IN: 06/18/2017 Secondary NOT GIVENUNK [place] Insurance:SELF PAY [facility] Number: Effective Repository Date:2017-06-15 05/31/2017 Paulette Tom Primary PAULETTE Tom [place] [id number] Insurance:ANNABELLA DILYARDDOB: [facility] [id number] Eagle River Memorial Hospital Number: Repository [address] [id number]: (330) Date:3226-22-14OK [address] (HP) [address] [address]QP: 05/31/2017 Secondary NOT GIVENUNK [place] Insurance:SELF PAY [facility] Number: Effective Repository Date:2017-05-03 05/30/2017 Paulette Tom Primary PAULETTE Tom [place] [id number] Insurance:ANNABELLA DILYARDDOB: [facility] [id number] Eagle River Memorial Hospital Number: Repository [address] [id number] [address]Gcg: (330) Date:8208-40-81OG [address] (HP) [address] [address]SK: 05/30/2017 Secondary NOT GIVENUNK [place] Insurance:SELF PAY [facility] Number: Effective Repository Date:2017-05-03 05/10/2017 Paulette Tom Primary PAULETTE Tom [place] [id number] Insurance:ANNABELLA DILYARDDOB: [facility] [id number] Eagle River Memorial Hospital Number: Repository [address] [id number]: (330) Date:6519-94-99VT [address] (HP) [address] [address]AX: 05/10/2017 Secondary NOT GIVENUNK [place] Insurance:SELF PAY [facility] Number: Effective Repository Date:2017-05-10 05/03/2017 Paulette Tom Primary PAULETTE Tom [place] [id number] Insurance:ANNABELLA DILYARDDOB: [facility] [id number] Eagle River Memorial Hospital Number: Repository [address] [id number] [address]Ezf: (330) Date:6494-71-40UB [address] (HP) [address] [address]LR: 05/03/2017 Secondary NOT GIVENUNK [place] Insurance:SELF PAY [facility] Number: Effective Repository Date:2017-04-03 05/02/2017 Paulette Tom Primary PAULETTE Tom [place] [id number] Insurance:ANNABELLA DILYARDDOB: [facility] [id number] Eagle River Memorial Hospital Number: Repository [address] [place] [id number] [address]Tfw: (330) Date:4718-12-78XA [address] ([address]) [address] [address]FW: 05/02/2017 Secondary NOT GIVENUNK [place] Insurance:SELF PAY [facility] Number: Effective Repository Date:2017-04-03 04/27/2017 Paulette Tom Primary PAULETTE Tom [place] [id number] Insurance:ANNABELLA DILYARDDOB: [facility] [id number] Eagle River Memorial Hospital Number: Repository [address] [id number] [address]Ssm: (330) Date:0185-61-65VM [phone] (HP) [address], [place] [address]AS: 04/27/2017 Secondary NOT GIVENUNK [place] Insurance:SELF PAY [facility] Number: Effective Repository Date:2017-04-27 04/04/2017 Paulette Tom Primary PAULETTE [place] [id number] Insurance:ANNABELLA DILYARDDOB: [id number] Number: [place]ository [address] [id number]: ([phone]) Date:3513-57-87SH [id number] (HP) [address], [place] [address]JX: 04/04/2017 Secondary NOT GIVENUNK [place] Insurance:SELF PAY [facility] Number: Effective Repository Date:2017-03-07 04/03/2017 Paulette Tom Primary PAULETTE [place] [id number] Insurance:ANNABELLA DILYARDDOB: [facility] [id number] Number: [place]ository [address] [id number]: (330) Date:1123-18-92YX [id number] (HP) [address] [address]WD: 04/03/2017 Secondary NOT GIVENUNK [place] Insurance:SELF PAY [facility] Number: Effective Repository Date:2017-03-07 03/07/2017 Paulette Tom Primary PAULETTE [place] [id number] Insurance:ANNABELLA DILYARDDOB: [facility] [id number] [facility] Number: [place]ository [address] [id number]: ([phone]) Date:1387-17-69GP [address] (HP) [address] [address]CI: 03/07/2017 Secondary NOT GIVENUNK [place] Insurance:SELF PAY [facility] Number: Effective Repository Date:2017-03-05 03/06/2017 Paulette Tom Primary PAULETTE Tom [place] [id number] Insurance:ANNABELLA DILYARDDOB: [facility] [id number] [facility] Number: Repository [address] [id number]: ([phone]) Date:9002-17-19ZD [address] () [address], [place] [address]JR: 03/06/2017 Secondary NOT GIVENUNK [place] Insurance:SELF PAY [facility] Number: Effective Repository Date:2017-03-05 02/27/2017 Paulette Tom Primary PAULETTE Tom [place] [id number] Insurance:ANNABELLA DILYARDDOB: [facility] [id number] [facility] Number: [place] [address] [id number]: (330) Date:8852-33-06MP [address] (HP) [address] [address]BL: 02/27/2017 Secondary NOT GIVENUNK [place] Insurance:SELF PAY [facility] Number: Effective Repository Date:2017-02-21 02/26/2017 Paulette Tom Primary PAULETTE Tom [place] [id number] Insurance:ANNABELLA DILYARDDOB: [facility] [id number] [facility] Number: [place]ository [address] [id number]: ([phone]) Date:8218-76-90QS [address] (HP) [address] [address]EV: 02/26/2017 Secondary NOT GIVENUNK [place] Insurance:SELF PAY [facility] Number: Effective Repository Date:2017-02-21 02/14/2017 Paulette Tom Primary PAULETTE Tom [place] [id number] Insurance:ANNABELLA DILYARDDOB: [facility] [id number] [facility] Number: [place]ository [address] [id number]: (330) Date:1593-66-34BZ [phone] () [place] [address]CY: 02/14/2017 Secondary NOT GIVENUNK [place] Insurance:SELF PAY [facility]: Effective Repository Date:2017-02-14
== END ==
PROVIDERS: Family Provider Family Medicine; PCP Family Medicine; Referring Provider Internal Medicine Endocrinology, Diabetes & Metabolism; Visit Provider Internal Medicine Endocrinology, Diabetes & Metabolism
DX: E03.8 Other specified hypothyroidism (principal); E21.1 Secondary hyperparathyroidism, not elsewhere classified
CPT/HCPCS: 36415; 80048; 83970

== ENCOUNTER → 2018-01-17 07:55 | Outpatient (CLI) | payer MEDICARE, SELFPAY ==
[2018-01-17] MEDS: Immune Globulin 20 gm Premixed Solution IV ×2 (08:22→10:15)
[2018-01-17 08:57] VITALS: BP 127/81; PULSE 75; RESP 16; TEMP 37; O2SAT 99
[2018-01-17 09:30] VITALS: BP 150/92; PULSE 80; RESP 16; TEMP 36.7; O2SAT 96
[2018-01-17] MEDS: Immune Globulin 5 GM Premixed Solution 3 GM IV (11:32)
--- OUTSIDE RECORDS SUMMARY | 2018-03-05 00:58 | XMS RPT_ITS ---
:1935 Author Organization OHIP Support Name Relationship Address Phone ROSS QUINN Unavailable [address] + [place] [address] R Unavailable Unavailable Unavailable ROSS, QUINN Unavailable [address] + [place] [address] R Unavailable Unavailable Unavailable ROSS, QUINN Unavailable [address] + [place] [address] R Unavailable Unavailable Unavailable ROSS, QUINN Unavailable [address] + [place] [address] R Unavailable Unavailable Unavailable ROSS, QUINN Unavailable [address] + [place] [address] R Unavailable Unavailable Unavailable ROSS, QUINN Unavailable [address] + [place] [address] R Unavailable Unavailable Unavailable ROSS, QUINN Unavailable [address] + [place] [address] R Unavailable Unavailable Unavailable ROSS, QUINN Unavailable [address] + [place] [address] R Unavailable Unavailable Unavailable ROSS, QUINN Unavailable [address] + [place] [address] R Unavailable Unavailable Unavailable ROSS, QUINN Unavailable [address] + [place] [address] R Unavailable Unavailable Unavailable ROSS, QUINN Unavailable [address] + [place] [address] R Unavailable Unavailable Unavailable ROSS, QUINN Unavailable [address] + [place] [address] R Unavailable Unavailable Unavailable ROSS, QUINN Unavailable [address] + [place] [address] R Unavailable Unavailable Unavailable ROSS, QUINN Unavailable [address] + [place] [address] R Unavailable Unavailable Unavailable ROSS, QUINN Unavailable [address] + [place] [address] R Unavailable Unavailable Unavailable ROSS, QUINN Unavailable [address] + [place] [address] R Unavailable Unavailable Unavailable ROSS, QUINN Unavailable [address] + [place] [address] R Unavailable Unavailable Unavailable ROSS, QUINN Unavailable [address] + [place] [address] R Unavailable Unavailable Unavailable ROSS, QUINN Unavailable [address] + [place] [address] R Unavailable Unavailable Unavailable ROSS, QUINN Unavailable [address] + [place] [address] R Unavailable Unavailable Unavailable ROSS, QUINN Unavailable [address] [phone] [place] [address] R Unavailable Unavailable Unavailable ROSS, QUINN Unavailable [address] [phone] [place] [address] R Unavailable Unavailable Unavailable ROSS, QUINN Unavailable [address] [phone] [place] [address] R Unavailable Unavailable Unavailable ROSS, QUINN Unavailable [address] [phone] [place] [address] R Unavailable Unavailable Unavailable ROSS, QUINN Unavailable [address] [phone] [place] [address] R Unavailable Unavailable Unavailable ROSS, QUINN Unavailable [address] [phone] [place] [address] R Unavailable Unavailable Unavailable ROSS, QUINN Unavailable [address] [phone] [place] [address] R Unavailable Unavailable Unavailable ROSS, QUINN Unavailable [address] [phone]~330-4 [place] [address] R Unavailable Unavailable Unavailable ROSS, QUINN Unavailable [address] [phone] [place] [address] R Unavailable Unavailable Unavailable ROSS, QUINN Unavailable [address] [phone] [place] [address] R Unavailable Unavailable Unavailable ROSS, QUINN Unavailable [address] [phone] [place] [address] R Unavailable Unavailable Unavailable ROSS QUINN Unavailable [address] [phone] [place] [address] R Unavailable Unavailable Unavailable ROSS, QUINN Unavailable [address] [phone] [place] [address] R Unavailable Unavailable Unavailable Care Team Providers [...] Referring Unavailable Malys, Catia Primary Care Unavailable CalabrettaBlake Attending Unavailable Malys, Catia Primary Care Unavailable CalabrettaBlake Referring Unavailable Vellanki, Natalie Attending Unavailable Vellanki, [...] TYPE CONDITION / CODE ATTENDING STATUS SOURCE 02/19/2018 Unknown 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 Community hypothyroidism / Hospital E03.8(ICD-10) Repository 01/07/2018 Unknown E21.1 - Secondary [place], Active [place] hyperparathyroidism, [facility] classified / Repository E21.1(ICD-10) PROCEDURES PROCEDURES No Procedure Records FoundRESULTS RESULTS PTHIN Collected: 01/07/2018 Status: F Source: [place] 8:14 AM [facility] REPOSITORY TYPE CODE TESTS RESULT OUT OF RANGE REFERENCE UNITS LAB L509.1000 18.4-80.1 pg/mL Normal PTHIN 66.0 Performed By: #### L509.1000 #### [facility] [address] [place], [address] BASIC METABOLIC Collected: 01/07/2018 Status: F Source: [place] PROFILE (BMP) 8:14 AM [facility] REPOSITORY TYPE CODE TESTS RESULT OUT OF [...] GAP 8 Performed By: #### L500.2500 #### [facility] [address] [place], [address] CBC W/DIFF, AUTOMATED Collected: 10/29/2017 Status: F Source: [place] 7:23 AM [facility] REPOSITORY Order Comment: DR GILLILAND ORDERED CMP/TSH/PTHIN/VITD [...] Lymph 0.93 Performed By: #### L100.0100 #### [facility] [place], [address] COMPREHENSIVE METABOLIC Collected: 10/29/2017 Status: F Source: [facility] 7:23 AM [facility] REPOSITORY Order Comment: DR GILLILAND ORDERED CMP/TSH/PTHIN/VITD DR VELLANKI ORDERED CBCD/CMP/CPK TYPE CODE TESTS RESULT OUT [...] GAP 7 Performed By: #### L500.4050, L501.3620, L501.9520 #### [facility] [address] [place], [address] CPK TOTAL, CREATINE Collected: 10/29/2017 Status: F Source: [place] KINASE 7:23 AM [facility] REPOSITORY Order Comment: DR GILLILAND ORDERED CMP/TSH/PTHIN/VITD DR HART ORDERED CBCD/CMP/CPK TYPE CODE TESTS RESULT OUT OF RANGE REFERENCE UNITS LAB L501.3620 26-192 U/L Normal CPK TOTAL 82 Performed By: #### L500.4050, L501.3620, L501.9520 #### [facility] [address] [place], [address] THYROID STIM HORMONE Collected: 10/29/2017 Status: F Source: [place] (TSH) 7:23 AM [facility] REPOSITORY Order Comment: DR GILLILAND ORDERED CMP/TSH/PTHIN/VITD DR HART ORDERED CBCD/CMP/CPK TYPE CODE TESTS RESULT OUT OF RANGE REFERENCE UNITS LAB L501.9520 0.358-3.74 uIU/mL Normal TSH 1.18 Performed By: #### L500.4050, L501.3620, L501.9520 #### [facility] [address] [place], [address] VITAMIN D,25 HYDROXY Collected: 10/29/2017 Status: F Source: [place] 7:23 AM [facility] REPOSITORY Order Comment: DR GILLILAND ORDERED CMP/TSH/PTHIN/VITD [...] (>250 nmol/L) Performed By: #### L506.1000 #### [facility] [address] [place], [address] PTHIN Collected: 10/29/2017 Status: F Source: [place] 7:23 AM [facility] REPOSITORY Order Comment: DR GILLILAND ORDERED CMP/TSH/PTHIN/VITD DR HART ORDERED CBCD/CMP/CPK TYPE CODE TESTS RESULT OUT OF RANGE REFERENCE UNITS LAB L509.1000 18.4-80.1 pg/mL High PTHIN 119.4 Performed By: #### L509.1000 #### [facility] [address] [place], [address] UNILAT RT SCRN Observed: 10/04/2017 Status: F Source: [place] W/CAD 8:30 AM [facility] REPOSITORY [facility] Imaging Services [address] [place] [address] UNILAT RT SCRN W/CAD MR#: [id number] Acct: [id number] Name: PAULETTE DOUGLAS Rep #: [id number] : 1935 F 82 From: Jose Jackson MD PCP: Catia Christian DO Status: REG CLI Study: UNILAT RT SCRN W/CAD Date of Exam: 10/04/17 Exam# [id number] Ordering Dr: Catia Christian DO MAMMOGRAPHY - [...] delay biopsy of a clinically suspicious abnormality. [id number] Electronically Signed: Jose Jackson MD at 10:23 EDT Tel [phone], Service support , CC: Catia Christian DO Perinatal Director: Signed CBC W/DIFF, AUTOMATED Collected: 08/09/2017 Status: F Source: [place] 7:49 AM [facility] REPOSITORY TYPE CODE TESTS RESULT OUT OF [...] Lymph 0.84 Performed By: #### L100.0100 #### [facility] [address] [place], [address] COMPREHENSIVE METABOLIC Collected: 08/09/2017 Status: F Source: [facility] 7:49 AM [facility] REPOSITORY TYPE CODE TESTS RESULT OUT OF [...] 8 Performed By: #### L500.4050, L501.3620 #### [facility] [address] [facility] [place], [address] CPK TOTAL, CREATINE Collected: 08/09/2017 Status: F Source: BLUE KINASE 7:49 AM [facility] REPOSITORY TYPE CODE TESTS RESULT OUT OF RANGE REFERENCE UNITS LAB L501.3620 26-192 U/L Normal CPK TOTAL 71 Performed By: #### L500.4050, L501.3620 #### [facility] [address] [place], [address] DIAG MAMM W/CAD, Observed: 06/18/2017 Status: F Source: BLUE UNILAT 9:46 AM [facility] REPOSITORY [facility] Imaging Services [address] [place] [address] DIAG MAMM W/CAD, UNILAT MR#: [id number] Acct: [id number] Name: PAULETTE DOUGLAS Rep #: [id number] : 1935 F 81 From: Jose Jackson MD PCP: Catia Christian DO Status: [facility] CLI Study: DIAG MAMM W/CAD, UNILAT Date of Exam: 06/18/17 Exam# [id number] Ordering Dr: Blake Mo MD MAMMOGRAPHY - [...] Jose Jackson MD at 11:02 EDT Tel [phone], Service support , CC: Blake Mo MD; Catia Christian DO Perinatal Director: Signed CBC W/DIFF, AUTOMATED Collected: 05/10/2017 Status: F Source: [place] 8:31 AM [facility] REPOSITORY TYPE CODE TESTS RESULT OUT OF [...] Lymph 0.97 Performed By: #### L100.0100 #### [facility] [address] [facility] [place], [place], [address] COMPREHENSIVE METABOLIC Collected: 05/10/2017 Status: F Source: BLUE JARRETT 8:31 AM [facility] REPOSITORY TYPE CODE TESTS RESULT OUT OF [...] 7 Performed By: #### L500.4050, L501.3620 #### [facility] [address] [place], [address] CPK TOTAL, CREATINE Collected: 05/10/2017 Status: F Source: [place] KINASE 8:31 AM [facility] REPOSITORY TYPE CODE TESTS RESULT OUT OF RANGE REFERENCE UNITS LAB L501.3620 26-192 U/L Normal CPK TOTAL 149 Performed By: #### L500.4050, L501.3620 #### [facility] [address] [place], [address] PTHIN Collected: 04/27/2017 Status: F Source: [place] 7:52 AM [facility] REPOSITORY TYPE CODE TESTS RESULT OUT OF RANGE REFERENCE UNITS LAB L509.1000 18.4-80.1 pg/mL Normal PTHIN 73.4 Result Comment: Please Note: PTH INTACT METHOD AND REFERENCE RANGE CHANGE Effective 01/24/2017. Performed By: #### L509.1000 #### [facility] [place], [address] COMPREHENSIVE METABOLIC Collected: 04/27/2017 Status: F Source: [place] FARIAS 7:52 AM [facility] REPOSITORY TYPE CODE TESTS RESULT OUT OF [...] 8 Performed By: #### L500.4050, L501.9520 #### [facility] [address] [place], [address] THYROID STIM HORMONE Collected: 04/27/2017 Status: F Source: [place] (TSH) 7:52 AM [facility] REPOSITORY TYPE CODE TESTS RESULT OUT OF RANGE REFERENCE UNITS LAB L501.9520 0.358-3.74 uIU/mL Normal TSH 1.76 Performed By: #### L500.4050, L501.9520 #### [facility] [address] [place], [address] ALLERGIES ALLERGIES DATE TYPE / CODE NAME / CODE REACTION SEVERITY SOURCE 06/27/2017 Drug No Known Unknown [facility] Allergy/4160 Allergies/F00 Hospital 45369(SNOMED 4007401(RXNOR Repository CT) M) ENCOUNTERS ENCOUNTERS ADMIT/DISCHARGE ACCOUNT ADMITTING ENCOUNTER LOCATION SOURCE NUMBER CLASS 02/15/2018 [id number] Amb[place] [facility] ing:MEDOUTP Repository 02/14/2018 [id number] Ambulatory [place] [facility] ing:MEDOUTP Repository 01/18/2018 [id number] Ambulatory [place] [facility] ing:MEDOUTP Repository 01/17/2018 [id number] Ambulatory [place] 3 [facility] ing:MEDOUTP Repository 01/07/2018 [id number] Amb[place] [facility] 12/14/2017 [id number] Ambulatory [place] 8 [facility] ing:MEDOUTP Repository 12/13/2017 [id number] Ambulatory [place] 9 [facility] ing:MEDOUTP Repository 11/16/2017 [id number] Ambulatory [place] [facility] ing:MEDOUTP Repository 11/15/2017 [id number] [facility] [place] [facility] Repository 10/29/2017 [id number] Ambulatory [place] 3 [facility] ing:[facility]LAB Repository 10/19/2017 [id number] Ambulatory [place] 4 [facility] ing:MEDOUTP Repository 10/18/2017 [id number] Amb[place] 1 [facility] ing:MEDOUTP Repository 10/04/2017 [id number] Ambulatory [place] [facility] ing:OPBI Repository 09/21/2017 [id number] Ambulatory [place] 5 [facility] ing:MEDOUTP Repository 09/20/2017 [id number] Amb[place] 4 [facility] ing:MEDOUTP Repository 08/24/2017 [id number] Ambulatory [place] [facility] ing:MEDOUTP Repository 08/23/2017 [id number] Ambulatory [place] [facility] ing:MEDOUTP Repository 08/09/2017 [id number] Ambulatory [place] 6 [facility] ing:MTLAB Repository 07/27/2017 [id number] Ambulatory [place] 9 [facility] ing:MEDOUTP Repository 07/26/2017 [id number] Ambulatory [place] [facility] ing:MEDOUTP Repository 06/28/2017 [id number] Ambulatory [place] [facility] ing:MEDOUTP Repository 06/27/2017 [id number] Ambulatory [place] 4 [facility] ing:MEDOUTP Repository 06/18/2017 [id number] Ambulatory [place] 6 [facility] ing:OPBI Repository 05/31/2017 [id number] Ambulatory [place] [facility] ing:MEDOUTP Repository 05/30/2017 [id number] Ambulatory [place] [facility] ing:MEDOUTP Repository 05/10/2017 [id number] Ambulatory [place] 5 [facility] ing:MTLAB Repository 05/03/2017 [id number] Ambulatory [place] [facility] ing:MEDOUTP Repository 05/02/2017 [id number] Ambulatory [place] 9 [facility] ing:MEDOUTP Repository 04/27/2017 [id number] Ambulatory [place] 9 [facility] ing:MTLAB Repository 04/04/2017 [id number] Ambulatory [place] 9 [facility] ing:MEDOUTP Repository 04/03/2017 [id number] Ambulatory [place] 0 [facility] ing:MEDOUTP Repository 03/07/2017 [id number] Ambulatory [place] 6 [facility] ing:MEDOUTP Repository 03/06/2017 [id number] Ambulatory [place] [facility] ing:MEDOUTP Repository PAYERS PAYERS ENCOUNTER GUARANTOR PAYER SUBSCRIBER SOURCE 02/15/2018 PAULETTE Tom Primary PAULETTE [place] [id number] Insurance:ANNABELLA DILYARDDOB: [id number] Number: [place] [id number]: 330) Date:1707-92-27PQ [phone] () [place] [address]EE: 02/15/2018 Secondary NOT GIVENUNK [place] Insurance:SELF PAY [facility] Number: Effective Repository Date:2018-01-18 02/14/2018 PAULETTE Tom Primary PAULETTE [place] [id number] Insurance:ANNABELLA DILYARDDOB: [facility] [id number] Medical Center/[facility] Number: [place]ository [address] [id number]: (330) Date:9338-13-22TP [phone] () [place] [address]BT: 02/14/2018 Secondary NOT GIVENUNK [place] Insurance:SELF PAY [facility] Number: Effective Repository Date:2018-01-18 01/18/2018 PAULETTE M Primary PAULETTE M [place] [id number] Insurance:ANNABELLA DILYARDDOB: [facility] [id number] Medical Center[facility] Number: Repository [address] [id number]: (330) Date:0117-08-07EB [phone] () [address] [address]EN: 01/18/2018 Secondary NOT GIVENUNK [place] Insurance:SELF PAY [facility] Number: Effective Repository Date:2017-12-14 01/17/2018 PAULETTE Tom Primary PAULETTE Tom [place] [id number] Insurance:ANNABELLA DILYARDDOB: [facility] [id number] Medical Center/[facility] Number: [place] [address] [id number]: (330) Date:8420-34-60GR [phone] () [place] [address]RY: 01/17/2018 Secondary NOT GIVENUNK [place] Insurance:SELF PAY [facility] Number: Effective Repository Date:2017-12-14 01/07/2018 PAULETTE Tom Primary PAULETTE Tom [place] [id number] Insurance:ANNABELLA DILYARDDOB: [facility] [id number] Medical Center/[facility] Number: [place] [address] [id number]: (330) Date:3798-40-19TQ [phone] (HP) [place] [address]YW: 01/07/2018 Secondary NOT GIVENUNK [place] Insurance:SELF PAY [facility] Number: Effective Repository Date:2018-01-07 12/14/2017 PAULETTE Tom Primary PAULETTE [place] [id number] Insurance:ANNABELLA DILYARDDOB: [facility] [id number] Medical Center/[facility] Number: [place] [address] [id number]: (330) Date:9869-68-27ZT [address] (HP) [place] [address]IB: 12/14/2017 Secondary NOT GIVENUNK [place] Insurance:SELF PAY [facility] Number: Effective Repository Date:2017-11-16 12/13/2017 PAULETTE Tom Primary PAULETTE Tom [place] [id number] Insurance:ANNABELLA DILYARDDOB: [facility] [id number] Medical Center/[facility] Number: Repository [address] [id number] [address]Ckj: (330) Date:1655-37-35NR [phone] (HP) [place] [address]HJ: 12/13/2017 Secondary NOT GIVENUNK [place] Insurance:SELF PAY [facility] Number: Effective Repository Date:2017-11-16 11/16/2017 PAULETTE Tom Primary PAULETTE Tom [place] [id number] Insurance:ANNABELLA DILYARDDOB: [facility] [id number] Medical Center/[facility] Number: Repository [address] [id number]: (330) Date:2052-46-06MP [phone] (HP) [place] [address]LT: 11/16/2017 Secondary NOT GIVENUNK [place] Insurance:SELF PAY [facility] Number: Effective Repository Date:2017-10-19 11/15/2017 PAULETTE Tom Primary PAULETTE Tom [place] [id number] Insurance:ANNABELLA DILYARDDOB: [facility] [id number] Medical Center/[facility] Number: Repository [place] [id number] [address]Mrl: (330) Date:7680-99-58IK [address] (HP) [address] [address]PT: 11/15/2017 Secondary NOT GIVENUNK [place] Insurance:SELF PAY [facility] Number: Effective Repository Date:2017-10-19 10/29/2017 PAULETTE Tom Primary PAULETTE Tom [place] [id number] Insurance:ANNABELLA DILYARDDOB: [facility] [id number] Medical Center/[facility] Number: Repository [address] [id number]: (330) Date:9842-63-48XV [phone] () [place] [address]DK: 10/29/2017 Secondary NOT GIVENUNK [place] Insurance:SELF PAY [facility] Number: Effective Repository Date:2017-10-29 10/19/2017 Paulette Tom Primary PAULETTE Tom [place] [id number] Insurance:ANNABELLA DILYARDDOB: [facility] [id number] Medical Center/[facility] Number: Repository [address] [id number]: (330) Date:3643-38-67UR [phone] () [address] [address]XW: 10/19/2017 Secondary NOT GIVENUNK [place] Insurance:SELF PAY [facility] Number: Effective Repository Date:2017-09-21 10/18/2017 Paulette Tom Primary PAULETTE Tom [place] [id number] Insurance:ANNABELLA DILYARDDOB: [facility] [id number] Medical Center/[facility] Number: [place]ository [place] [id number]: (330) Date:7236-89-13OP [phone] (HP) [place] [address]LU: 10/18/2017 Secondary NOT GIVENUNK [place] Insurance:SELF PAY [facility] Number: Effective Repository Date:2017-09-21 10/04/2017 Paulette Tom Primary PAULETTE Tom [place] [id number] Insurance:ANNABELLA DILYARDDOB: [facility] [id number] Mental Health Institute Number: Repository [address] [id number] [address]Pms: (330) Date:4144-12-19AV [phone] (HP) [address] [address]YX: 10/04/2017 Secondary NOT GIVENUNK [place] Insurance:SELF PAY [facility] Number: Effective Repository Date:2017-09-03 09/21/2017 Paulette Tom Primary PAULETTE Tom [place] [id number] Insurance:ANNABELLA DILYARDDOB: [facility] [id number] Mental Health Institute Number: Repository [address] [id number]: (330) Date:7099-50-90CP [phone] (HP) [address] [address]BW: 09/21/2017 Secondary NOT GIVENUNK [place] Insurance:SELF PAY [facility] Number: Effective Repository Date:2017-08-24 09/20/2017 Paulette Tom Primary PAULETTE Tom [place] [id number] Insurance:ANNABELLA DILYARDDOB: [facility] [id number] Medical Center/[facility] Number: Repository [address] [id number] [address]Kcq: (330) Date:1241-23-40ID [address] (HP) [address] [address]WD: 09/20/2017 Secondary NOT GIVENUNK [place] Insurance:SELF PAY [facility] Number: Effective Repository Date:2017-08-24 08/24/2017 Paulette Tom Primary PAULETTE Tom [place] [id number] Insurance:ANNABELLA DILYARDDOB: [facility] [id number] Mental Health Institute Number: Repository [address] [id number] [address]Tqd: (330) Date:9171-94-88DO [address] (HP) [place] [address]MJ: 08/24/2017 Secondary NOT GIVENUNK [place] Insurance:SELF PAY [facility] Number: Effective Repository Date:2017-07-27 08/23/2017 Paulette Tom Primary PAULETTE Tom [place] [id number] Insurance:ANNABELLA DILYARDDOB: [facility] [id number] Mental Health Institute Number: Repository [address] [id number] [address]Wks: (330) Date:7677-05-27SH [address] (HP) [place] [address]ZE: 08/23/2017 Secondary NOT GIVENUNK [place] Insurance:SELF PAY [facility] Number: Effective Repository Date:2017-07-27 08/09/2017 Paulette Tom Primary PAULETTE Tom [place] [id number] Insurance:ANNABELLA DILYARDDOB: [facility] [id number] Number: [place]ository [address] [id number]: (330) Date:7402-24-64UV [address] (HP) [address] [address]OQ: 08/09/2017 Secondary NOT GIVENUNK [place] Insurance:SELF PAY [facility] Number: Effective Repository Date:2017-08-09 07/27/2017 Paulette Tom Primary PAULETTE Tom [place] [id number] Insurance:ANNABELLA DILYARDDOB: [facility] [id number] Mental Health Institute Number: [place]ository [address] [id number]: (330) Date:7279-61-34RO [address] (HP) [address] [address]KN: 07/27/2017 Secondary NOT GIVENUNK [place] Insurance:SELF PAY [facility] Number: Effective Repository Date:2017-06-28 07/26/2017 Paulette Tom Primary PAULETTE Tom [place] [id number] Insurance:ANNABELLA DILYARDDOB: [facility] [id number] Mental Health Institute Number: [place]ository [address] [id number] [address]Bjj: (330) Date:9028-91-78DT [address] () [address] [address]KR: 07/26/2017 Secondary NOT GIVENUNK [place] Insurance:SELF PAY [facility] Number: Effective Repository Date:2017-06-28 06/28/2017 Paulette Tom Primary PAULETTE Tom [place] [id number] Insurance:ANNABELLA DILYARDDOB: [facility] [id number] Mental Health Institute Number: [place] [address] [id number]: (330) Date:6754-46-48DO [address] (HP) [address] [address]NS: 06/28/2017 Secondary NOT GIVENUNK [place] Insurance:SELF PAY [facility] Number: Effective Repository Date:2017-05-31 06/27/2017 Paulette Tom Primary PAULETTE Tom [place] [id number] Insurance:ANNABELLA DILYARDDOB: [facility] [id number] Mental Health Institute Number: [place]ository [address] [id number]: (330) Date:4139-13-30RM [address] (HP) [address] [address]KM: 06/27/2017 Secondary NOT GIVENUNK [place] Insurance:SELF PAY [facility] Number: Effective Repository Date:2017-05-31 06/18/2017 Paulette Tom Primary PAULETTE Tom [place] [id number] Insurance:ANNABELLA DILYARDDOB: [facility] [id number] Mental Health Institute Number: [place]ository [address] [id number]: (330) Date:5489-24-92[address] ([address]) [address] [address]XE: 06/18/2017 Secondary NOT GIVENUNK [place] Insurance:SELF PAY [facility] Number: Effective Repository Date:2017-06-15 05/31/2017 Paulette Tom Primary PAULETTE Tom [place] [id number] Insurance:ANNABELLA DILYARDDOB: [facility] [id number] Mental Health Institute Number: [place]ository [address] [id number] [address]Bok: (330) Date:9972-38-40GO [address] (HP) [address] [address]BN: 05/31/2017 Secondary NOT GIVENUNK [place] Insurance:SELF PAY [facility] Number: Effective Repository Date:2017-05-03 05/30/2017 Paulette Tom Primary PAULETTE Tom [place] [id number] Insurance:ANNABELLA DILYARDDOB: [facility] [id number] Mental Health Institute Number: [place]ository [address] [id number]: (330) Date:6965-90-73RB [address] (HP) [address] [address]QH: 05/30/2017 Secondary NOT GIVENUNK [place] Insurance:SELF PAY [facility] Number: Effective Repository Date:2017-05-03 05/10/2017 Paulette Tom Primary PAULETTE Tom [place] [id number] Insurance:ANNABELLA DILYARDDOB: [facility] [id number] Mental Health Institute Number: [place]ository [address] [id number] [address]Rlg: (330) Date:9284-96-73WZ [address] (HP) [address] [address]FO: 05/10/2017 Secondary NOT GIVENUNK [place] Insurance:SELF PAY [facility] Number: Effective Repository Date:2017-05-10 05/03/2017 Paulette Tom Primary PAULETTE Tom [place] [id number] Insurance:ANNABLELA DILYARDDOB: [facility] [id number] Mental Health Institute Number: [place]ository [address] [id number]: (330) Date:7516-49-48RD [phone] (HP) [address] [address]MG: 05/03/2017 Secondary NOT GIVENUNK [place] Insurance:SELF PAY [facility] Number: Effective Repository Date:2017-04-03 05/02/2017 Paulette Tom Primary PAULETTE Tom [place] [id number] Insurance:ANNABELLA DILYARDDOB: [facility] [id number] Mental Health Institute Number: [place]ository [address] [id number]: (330) Date:8094-38-11PM [phone] (HP) [address] [address]VK: 05/02/2017 Secondary NOT GIVENUNK [place] Insurance:SELF PAY [facility] Number: Effective Repository Date:2017-04-03 04/27/2017 Paulette Tom Primary PAULETTE Tom [place] [id number] Insurance:ANNABELLA DILYARDDOB: [facility] [id number] Mental Health Institute Number: [place]ository [address] [id number] [address]Rpx: (330) Date:3245-58-43WH [phone] (HP) [address] [address]XC: 04/27/2017 Secondary NOT GIVENUNK [place] Insurance:SELF PAY [facility] Number: Effective Repository Date:2017-04-27 04/04/2017 Paulette Tom Primary PAULETTE Tom [place] [id number] Insurance:ANNABELLA DILYARDDOB: [facility] [id number] Mental Health Institute Number: Repository [address] [id number] [address]Ifk: (330) Date:3107-97-25CW [address] ([address]) [address] [address]PS: 04/04/2017 Secondary NOT GIVENUNK [place] Insurance:SELF PAY [facility] Number: Effective Repository Date:2017-03-07 04/03/2017 Paulette Tom Primary PAULETTE Tom [place] [id number] Insurance:ANNABELLA DILYARDDOB: [facility] [id number] Mental Health Institute Number: [place]ository [address] [id number] [address]Ogk: (330) Date:5335-42-00CS [address] (HP) [address] [address]VU: 04/03/2017 Secondary NOT GIVENUNK [place] Insurance:SELF PAY [facility] Number: Effective Repository Date:2017-03-07 03/07/2017 Paulette Tom Primary PAULETTE Tom [place] [id number] Insurance:ANNABELLA DILYARDDOB: [facility] [id number] Mental Health Institute Number: [place]ository [address] [id number] [address]Nea: (330) Date:5783-74-21YW [address] ([address]) [address] [address]ZM: 03/07/2017 Secondary NOT GIVENUNK [place] Insurance:SELF PAY [facility] Number: Effective Repository Date:2017-03-05 03/06/2017 Paulette Tom Primary PAULETTE Tom [place] [id number] Insurance:ANNABELLA DILYARDDOB: [facility] [id number] Mental Health Institute Number: [place] [address] [id number]: (330) Date:9060-52-49XK [phone] (YP) [address] [address]PU: 03/06/2017 Secondary NOT GIVENUNK [place] Insurance[facility]LF [facility] Effective Repository Date:2017-03-05
== END ==
PROVIDERS: Family Provider Family Medicine; PCP Family Medicine; Referring Provider Internal Medicine Rheumatology; Visit Provider Internal Medicine Rheumatology
DX: M33.92 Dermatopolymyositis, unspecified with myopathy (principal)
CPT/HCPCS: 96365; 96366; A4216; J1568

== ENCOUNTER → 2018-01-18 07:53 | Outpatient (CLI) | payer MEDICARE, SELFPAY ==
[2018-01-18 07:59] VITALS: BP 144/84; PULSE 98; RESP 16; TEMP 36.9; O2SAT 98; BMI 25.9
[2018-01-18] MEDS: Immune Globulin 20 gm Premixed Solution IV ×2 (08:15→09:59)
[2018-01-18] MEDS: Immune Globulin 5 GM Premixed Solution IV (11:27)
--- OUTSIDE RECORDS SUMMARY | 2018-03-05 19:23 | XMS RPT_ITS ---
:1935 Author Organization OHIP Support Name Relationship Address Phone ROSS QUINN Unavailable [address] + [place] [address] R Unavailable Unavailable Unavailable ROSS, QUINN Unavailable [address] + [place] [address] R Unavailable Unavailable Unavailable ROSS, QUINN Unavailable [address] + [place] [address] R Unavailable Unavailable Unavailable ROSS, QUINN Unavailable [address] + [place] [address] R Unavailable Unavailable Unavailable ROSS, QUINN Unavailable [address] + [place] [address] R Unavailable Unavailable Unavailable ROSS, QUINN Unavailable [address] + [place] [address] R Unavailable Unavailable Unavailable ROSS, QUINN Unavailable [address] + [place] [address] R Unavailable Unavailable Unavailable ROSS, QUINN Unavailable [address] + [place] [address] R Unavailable Unavailable Unavailable ROSS, QUINN Unavailable [address] + [place] [address] R Unavailable Unavailable Unavailable ROSS, QUINN Unavailable [address] + [place] [address] R Unavailable Unavailable Unavailable ROSS, QUINN Unavailable [address] + [place] [address] R Unavailable Unavailable Unavailable ROSS, QUINN Unavailable [address] + [place] [address] R Unavailable Unavailable Unavailable ROSS, QUINN Unavailable [address] + [place] [address] R Unavailable Unavailable Unavailable ROSS, QUINN Unavailable [address] + [place] [address] R Unavailable Unavailable Unavailable ROSS, QUINN Unavailable [address] + [place] [address] R Unavailable Unavailable Unavailable ROSS, QUINN Unavailable [address] + [place] [address] R Unavailable Unavailable Unavailable ROSS, QUINN Unavailable [address] + [place] [address] R Unavailable Unavailable Unavailable ROSS, QUINN Unavailable [address] + [place] [address] R Unavailable Unavailable Unavailable ROSS, QUINN Unavailable [address] + [place] [address] R Unavailable Unavailable Unavailable ROSS, QUINN Unavailable [address] + [place] [address] R Unavailable Unavailable Unavailable ROSS, QUINN Unavailable [address] [phone] [place] [address] R Unavailable Unavailable Unavailable ROSS, QUINN Unavailable [address] [phone] [place] [address] R Unavailable Unavailable Unavailable ROSS, QUINN Unavailable [address] [phone]~330-4 [place] [address] R Unavailable Unavailable Unavailable ROSS, QUINN Unavailable [address] [phone] [place] [address] R Unavailable Unavailable Unavailable ROSS, QUINN Unavailable [address] [phone] [place] [address] R Unavailable Unavailable Unavailable ROSS, QUINN Unavailable [address] [phone] [place] [address] R Unavailable Unavailable Unavailable ROSS, QUINN Unavailable [address] [phone]~330-4 [place] [address] R Unavailable Unavailable Unavailable ROSS, QUINN Unavailable [address] [phone] [place] [address] R Unavailable Unavailable Unavailable ROSS, QUINN Unavailable [address] [phone]~330-4 [place] [address] R Unavailable Unavailable Unavailable ROSS, QUINN Unavailable [address] [phone]~330-4 [place] [address] R Unavailable Unavailable Unavailable ROSS, QUINN Unavailable [address] [phone]~330-4 [place] [address] R Unavailable Unavailable Unavailable ROSS QUINN Unavailable [address] [phone] [place] [address] R Unavailable Unavailable Unavailable ROSS, QUINN Unavailable [address] [phone]~330-4 [place] [address] R Unavailable Unavailable Unavailable Care Team Providers [...] Unavailable Malys, Catia Primary Care Unavailable Vellanki, Natalei Attending Unavailable Vellanki, Natalie Referring Unavailable Malys, [...] 02/19/2018 Unknown 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, 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1000 18.4-80.1 pg/mL Normal PTHIN 66.0 Performed By: #### L509.1000 #### [facility] [address] [place], [address] BASIC METABOLIC Collected: 01/07/2018 Status: F Source: [place] PROFILE (BMP) 8:14 AM [facility] REPOSITORY TYPE CODE TESTS RESULT OUT [...] GAP 8 Performed By: #### L500.2500 #### [facility] [address] [place], [address] CBC W/DIFF, AUTOMATED Collected: 10/29/2017 Status: F Source: [place] 7:23 AM [facility] REPOSITORY Order Comment: DR GILLILAND ORDERED [...] Lymph 0.93 Performed By: #### L100.0100 #### [facility] [place], [address] COMPREHENSIVE METABOLIC Collected: 10/29/2017 Status: F Source: [facility] 7:23 AM [facility] REPOSITORY Order Comment: DR GILLILAND ORDERED [...] Performed By: #### L500.4050, L501.3620, L501.9520 #### [facility] [address] [place], [address] CPK TOTAL, CREATINE Collected: 10/29/2017 Status: F Source: [place] KINASE 7:23 AM [facility] REPOSITORY Order Comment: DR GILLILAND ORDERED CMP/TSH/PTHIN/VITD DR HART ORDERED CBCD/CMP/CPK TYPE CODE TESTS RESULT OUT OF RANGE REFERENCE UNITS LAB L501.3620 26-192 U/L Normal CPK TOTAL 82 Performed By: #### L500.4050, L501.3620, L501.9520 #### [facility] [address] [place], [address] THYROID STIM HORMONE Collected: 10/29/2017 Status: F Source: [place] (TSH) 7:23 AM [facility] REPOSITORY Order Comment: DR GILLILAND ORDERED CMP/TSH/PTHIN/VITD DR HART ORDERED CBCD/CMP/CPK TYPE CODE TESTS RESULT OUT OF RANGE REFERENCE UNITS LAB L501.9520 0.358-3.74 uIU/mL Normal TSH 1.18 Performed By: #### L500.4050, L501.3620, L501.9520 #### [facility] [address] [place], [address] VITAMIN D,25 HYDROXY Collected: 10/29/2017 Status: F Source: [place] 7:23 AM [facility] REPOSITORY Order Comment: DR GILLILAND ORDERED [...] (>250 nmol/L) Performed By: #### L506.1000 #### [facility] [address] [place], [address] PTHIN Collected: 10/29/2017 Status: F Source: [place] 7:23 AM [facility] REPOSITORY Order Comment: DR GILLILAND ORDERED CMP/TSH/PTHIN/VITD DR HART ORDERED CBCD/CMP/CPK TYPE CODE TESTS RESULT OUT OF RANGE REFERENCE UNITS LAB L509.1000 18.4-80.1 pg/mL High PTHIN 119.4 Performed By: #### L509.1000 #### [facility] [address] [place], [address] UNILAT RT SCRN Observed: 10/04/2017 Status: F Source: [place] W/CAD 8:30 AM [facility] REPOSITORY [facility] Imaging Services [address] [place] [address] UNILAT RT SCRN W/CAD MR#: [id number] Acct: [id number] Name: PAULETTE DOUGLAS Rep #: [id number] : 1935 F 82 From: Jose Jackson MD PCP: Catia Christian DO Status: REG CLI Study: UNILAT RT SCRN W/CAD Date of Exam: 10/04/17 Exam# [id number] Ordering Dr: Catia Christian DO MAMMOGRAPHY - [...] delay biopsy of a clinically suspicious abnormality. [id number] Electronically Signed: Jose Jackson MD at 10:23 EDT Tel [phone], Service support , CC: Catia Christian DO English Drawer: Signed CBC W/DIFF, AUTOMATED Collected: 08/09/2017 Status: F Source: [place] 7:49 AM [facility] REPOSITORY TYPE CODE TESTS RESULT OUT [...] Lymph 0.84 Performed By: #### L100.0100 #### [facility] [address] [place], [address] COMPREHENSIVE METABOLIC Collected: 08/09/2017 Status: F Source: [facility] 7:49 AM [facility] REPOSITORY TYPE CODE TESTS RESULT OUT [...] 8 Performed By: #### L500.4050, L501.3620 #### [facility] [address] [facility] [place], [address] CPK TOTAL, CREATINE Collected: 08/09/2017 Status: F Source: [place] KINASE 7:49 AM [facility] REPOSITORY TYPE CODE TESTS RESULT OUT OF RANGE REFERENCE UNITS LAB L501.3620 26-192 U/L Normal CPK TOTAL 71 Performed By: #### L500.4050, L501.3620 #### [facility] [address] [place], [address] DIAG MAMM W/CAD, Observed: 06/18/2017 Status: F Source: [place] UNILAT 9:46 AM [facility] REPOSITORY [facility] Imaging Services [address] [place] [address] DIAG MAMM W/CAD, UNILAT MR#: [id number] Acct: [id number] Name: PAULETTE DOUGLAS Rep #: [id number] : 1935 F 81 From: Jose Jackson MD PCP: Catia Christian DO Status: [facility] CLI Study: DIAG MAMM W/CAD, UNILAT Date of Exam: 06/18/17 Exam# [id number] Ordering Dr: Blake Mo MD MAMMOGRAPHY - [...] Jose Jackson MD at 11:02 EDT Tel [phone], Service support , CC: Blake Mo MD; Catia Christian DO English Drawer: Signed CBC W/DIFF, AUTOMATED Collected: 05/10/2017 Status: F Source: [place] 8:31 AM [facility] REPOSITORY TYPE CODE TESTS RESULT OUT [...] Lymph 0.97 Performed By: #### L100.0100 #### [facility] [address] [place], [place], [address] COMPREHENSIVE METABOLIC Collected: 05/10/2017 Status: F Source: [place] JARRETT 8:31 AM [facility] REPOSITORY TYPE CODE TESTS RESULT OUT [...] 7 Performed By: #### L500.4050, L501.3620 #### [facility] [address] [place], [address] CPK TOTAL, CREATINE Collected: 05/10/2017 Status: F Source: [place] KINASE 8:31 AM [facility] REPOSITORY TYPE CODE TESTS RESULT OUT OF RANGE REFERENCE UNITS LAB L501.3620 26-192 U/L Normal CPK TOTAL 149 Performed By: #### L500.4050, L501.3620 #### [facility] [address] [place], [address] PTHIN Collected: 04/27/2017 Status: F Source: [place] 7:52 AM [facility] REPOSITORY TYPE CODE TESTS RESULT OUT OF RANGE REFERENCE UNITS LAB L509.1000 18.4-80.1 pg/mL Normal PTHIN 73.4 Result Comment: Please Note: PTH INTACT METHOD AND REFERENCE RANGE CHANGE Effective 01/24/2017. Performed By: #### L509.1000 #### [facility] [place], [address] COMPREHENSIVE METABOLIC Collected: 04/27/2017 Status: F Source: [place] FARIAS 7:52 AM [facility] REPOSITORY TYPE CODE TESTS RESULT OUT [...] 8 Performed By: #### L500.4050, L501.9520 #### [facility] [address] [place], [address] THYROID STIM HORMONE Collected: 04/27/2017 Status: F Source: [place] (TSH) 7:52 AM [facility] REPOSITORY TYPE CODE TESTS RESULT OUT OF RANGE REFERENCE UNITS LAB L501.9520 0.358-3.74 uIU/mL Normal TSH 1.76 Performed By: #### L500.4050, L501.9520 #### [facility] [address] [place], [address] ALLERGIES ALLERGIES DATE TYPE / CODE NAME / CODE REACTION SEVERITY SOURCE 06/27/2017 Drug No Known Unknown [facility] Allergy/4160 Allergies/F00 Hospital 51771(SNOMED 2862380(RXNOR Repository CT) M) ENCOUNTERS ENCOUNTERS ADMIT/DISCHARGE ACCOUNT ADMITTING ENCOUNTER LOCATION SOURCE NUMBER CLASS 02/15/2018 [id number] [facility] [place] 9 [facility] ing:MEDOUTP Repository 02/14/2018 [id number] Ambulatory [place] 2 [facility] ing:MEDOUTP Repository 01/18/2018 [id number] Ambulatory [place] 2 [facility] ing:MEDOUTP Repository 01/17/2018 [id number] Ambulatory [place] 3 [facility] ing:MEDOUTP Repository 01/07/2018 [id number] Amb[place] 5 [facility] 12/14/2017 [id number] Ambulatory [place] 8 [facility] ing:MEDOUTP Repository 12/13/2017 [id number] Amb[facility] [place] 9 [facility] ing:MEDOUTP Repository 11/16/2017 [id number] Ambulatory [place] 4 [facility] ing:MEDOUTP Repository 11/15/2017 [id number] [facility] [place] [facility] Repository 10/29/2017 [id number] Amb[facility] [place] [facility] Repository 10/19/2017 [id number] [facility] [place] 4 [facility] Repository 10/18/2017 [id number] [facility] [place] 1 [facility] Repository 10/04/2017 [id number] Amb[facility] [place] [facility] ing:OPBI Repository 09/21/2017 [id number] [facility] [place] 5 [facility] ing:[facility] Repository 09/20/2017 [id number] [facility] [place] 4 [facility] ing:[facility] Repository 08/24/2017 [id number] Ambulatory [place] [facility] ing:[facility] Repository 08/23/2017 [id number] Ambulatory [place] 6 [facility] ing:[facility] Repository 08/09/2017 [id number] Ambulatory [place] [facility] ing:MTLAB Repository 07/27/2017 [id number] Ambulatory [place] [facility] ing:[facility] Repository 07/26/2017 [id number] [facility] [place] [facility] ing:[facility] Repository 06/28/2017 [id number] [facility] [place] [facility] ing:[facility] Repository 06/27/2017 [id number] [facility] [place] 4 [facility] ing:[facility] Repository 06/18/2017 [id number] Ambulatory [place] 6 [facility] ing:OPBI Repository 05/31/2017 [id number] Ambulatory [place] [facility] ing:[facility] Repository 05/30/2017 [id number] Ambulatory [place] [facility] Repository 05/10/2017 [id number] [facility] [place] 5 [facility] ing:MTLAB Repository 05/03/2017 [id number] Ambulatory [place] 2 [facility] ing:MEDOUTP Repository 05/02/2017 [id number] Ambulatory [place] 9 [facility] ing:MEDOUTP Repository 04/27/2017 [id number] Ambulatory [place] 9 [facility] ing:MTLAB Repository 04/04/2017 [id number] Ambulatory [place] 9 [facility] ing:MEDOUTP Repository 04/03/2017 [id number] Amb[facility] [place] 0 [facility] ing:MEDOUTP Repository 03/07/2017 [id number] Ambulatory [place] 6 [facility] ing:MEDOUTP Repository 03/06/2017 [id number] Ambulatory [place] 5 [facility] ing:MEDOUTP Repository PAYERS PAYERS ENCOUNTER GUARANTOR PAYER SUBSCRIBER SOURCE 02/15/2018 PAULETTE Tom Primary PAULETTE [place] [id number] Insurance:ANNABELLA DILYARDDOB: [facility] [id number] Number: [place]ository [address] [id number] [address]Qqd: 330) Date:7351-98-21JU [phone] () [place] [address]QF: 02/15/2018 Secondary NOT GIVENUNK [place] Insurance:SELF PAY [facility] Number: Effective Repository Date:2018-01-18 02/14/2018 PAULETTE Tom Primary PAULETTE [place] [id number] Insurance:ANNABELLA DILYARDDOB: [facility] [id number] Number: [place]ository [address] [place] [id number] [address]Cdp: (330) Date:2760-27-11AM [phone] () [place] [address]DH: 02/14/2018 Secondary NOT GIVENUNK [place] Insurance:SELF PAY [facility] Number: Effective Repository Date:2018-01-18 01/18/2018 PAULETTE M Primary PAULETTE M [place] [id number] Insurance:ANNABELLA DILYARDDOB: [facility] [id number] Clinic Health [facility] Number: Repository [address] [id number] [address]Nlr: (330) Date:6247-38-84VV [address] () [address] [address]VR: 01/18/2018 Secondary NOT GIVENUNK [place] Insurance:SELF PAY [facility] Number: Effective Repository Date:2017-12-14 01/17/2018 PAULETTE Tom Primary PAULETTE Tom [place] [id number] Insurance:ANNABELLA DILYARDDOB: [facility] [id number] Clinic Health [facility] Number: Repository [address] [id number]: (330) Date:1399-45-67TM [phone] () [address] [address]GD: 01/17/2018 Secondary NOT GIVENUNK [place] Insurance:SELF PAY [facility] Number: Effective Repository Date:2017-12-14 01/07/2018 PAULETTE Tom Primary PAULETTE Tom [place] [id number] Insurance:ANNABELLA DILYARDDOB: [facility] [id number] Clinic [facility] Number: Repository [address] [place] [id number]: (330) Date:3056-30-53JG [address] (HP) [address] [address]TJ: 01/07/2018 Secondary NOT GIVENUNK [place] Insurance:SELF PAY [facility] Number: Effective Repository Date:2018-01-07 12/14/2017 PAULETTE Tom Primary PAULETTE [place] [id number] Insurance:ANNABELLA DILYARDDOB: [facility] [id number] Clinic Health [facility] Number: Repository [address] [place] [id number] [address]Yai: (330) Date:6903-21-66XA [address] (HP) [place] [address]NS: 12/14/2017 Secondary NOT GIVENUNK [place] Insurance:SELF PAY [facility] Number: Effective Repository Date:2017-11-16 12/13/2017 PAULETTE Tom Primary PAULETTE Tom [place] [id number] Insurance:ANNABELLA DILYARDDOB: [facility] [id number] Clinic Health [facility] Number: Repository [address] [id number]: (330) Date:2916-68-87VQ [address] (HP) [place] [address]JZ: 12/13/2017 Secondary NOT GIVENUNK [place] Insurance:SELF PAY [facility] Number: Effective Repository Date:2017-11-16 11/16/2017 PAULETTE Tom Primary PAULETTE Tom [place] [id number] Insurance:ANNABELLA DILYARDDOB: [facility] [id number] Clinic [facility] Number: Repository [address] [id number]: (330) Date:9019-56-21JE [address] (HP) [place] [address]QC: 11/16/2017 Secondary NOT GIVENUNK [place] Insurance:SELF PAY [facility] Number: Effective Repository Date:2017-10-19 11/15/2017 PAULETTE Tom Primary PAULETTE Tom [place] [id number] Insurance:ANNABELLA DILYARDDOB: [facility] [id number] Clinic Health [facility] Number: Repository [address] [id number] [address]Xbr: (330) Date:9212-20-47VJ [address] (HP) [address] [address]VA: 11/15/2017 Secondary NOT GIVENUNK [place] Insurance:SELF PAY [facility] Number: Effective Repository Date:2017-10-19 10/29/2017 PAULETTE Tom Primary PAULETTE Tom [place] [id number] Insurance:ANNABELLA DILYARDDOB: [facility] [id number] Clinic Health [facility] Number: Repository [address] [id number] [address]Ubn: (330) Date:7705-61-01MN [address] () [place] [address]CN: 10/29/2017 Secondary NOT GIVENUNK [place] Insurance:SELF PAY [facility] Number: Effective Repository Date:2017-10-29 10/19/2017 Paulette Tom Primary PAULETTE Tom [place] [id number] Insurance:ANNABELLA DILYARDDOB: [facility] [id number] Clinic Health System[facility] Number: Repository [address] [place] [id number]: (330) Date:8354-90-30ZL [address] () [address], [place] [address]KI: 10/19/2017 Secondary NOT GIVENUNK [place] Insurance:SELF PAY [facility] Number: Effective Repository Date:2017-09-21 10/18/2017 Paulette Tom Primary PAULETTE Tom [place] [id number] Insurance:ANNABELLA DILYARDDOB: [facility] [id number] Clinic Health System[facility] Number: Repository [address] [id number] [address]Gyk: (330) Date:6203-26-17CJ [address] (HP) [place] [address]BZ: 10/18/2017 Secondary NOT GIVENUNK [place] Insurance:SELF PAY [facility] Number: Effective Repository Date:2017-09-21 10/04/2017 Paulette Tom Primary PAULETTE Tom [place] [id number] Insurance:ANNABELLA DILYARDDOB: [facility] [id number] [facility]au[facility] Number: Repository [address] [id number] [address]Lpr: (330) Date:4665-15-66UQ [address] (HP) [address], [place] [address]WG: 10/04/2017 Secondary NOT GIVENUNK [place] Insurance:SELF PAY [facility] Number: Effective Repository Date:2017-09-03 09/21/2017 Paulette Tom Primary PAULETTE Tom [place] [id number] Insurance:ANNABELLA DILYARDDOB: [facility] [id number] Waukesha Memorial Hospital Number: Repository [address] [id number] [address]Bmg: (330) Date:2045-39-56QB [address] (HP) [address], [place] [address]JY: 09/21/2017 Secondary NOT GIVENUNK [place] Insurance:SELF PAY [facility] Number: Effective Repository Date:2017-08-24 09/20/2017 Paulette Tom Primary PAULETTE Tom [place] [id number] Insurance:ANNABELLA DILYARDDOB: [facility] [id number] Clinic Health System[facility] Number: Repository [address] [id number] [address]Gzm: (330) Date:3222-88-40OJ [address] (HP) [address], [place] [address]QX: 09/20/2017 Secondary NOT GIVENUNK [place] Insurance:SELF PAY [facility] Number: Effective Repository Date:2017-08-24 08/24/2017 Paulette Tom Primary PAULETTE Tom [place] [id number] Insurance:ANNABELLA DILYARDDOB: [facility] [id number] Waukesha Memorial [facility] Number: Repository [address] [place] [id number] [address]Ucd: (330) Date:0503-74-80LW [address] (HP) [address] [address]NE: 08/24/2017 Secondary NOT GIVENUNK [place] Insurance:SELF PAY [facility] Number: Effective Repository Date:2017-07-27 08/23/2017 Paulette Tom Primary PAULETTE Tom [place] [id number] Insurance:ANNABELLA DILYARDDOB: [facility] [id number] Waukesha Memorial Hospital Number: Repository [address] [place] [id number] [address]Svx: (330) Date:1836-62-81BF [address] (HP) [address] [address]RB: 08/23/2017 Secondary NOT GIVENUNK [place] Insurance:SELF PAY [facility] Number: Effective Repository Date:2017-07-27 08/09/2017 Paulette Tom Primary PAULETTE Tom Lupton [id number] Insurance:ANNABELLA DILYARDDOB: [facility] 7071-12-57GLZProHealth [facility]aukes[facility] Number: [place]ository [address] [id number]: (330) Date:5536-49-40IW [address] (HP) [address] [address]OU: 08/09/2017 Secondary NOT GIVENUNK Lu[place] Insurance:SELF PAY [facility] Number: Effective Repository Date:2017-08-09 07/27/2017 Paulette Tom Primary PAULETTE Tom [place] [id number] Insurance:ANNABELLA DILYARDDOB: [facility] 6939-37-22LZVProHealth Waukesha [facility] Number: [place]ository [address] [id number]: (330) Date:0830-86-32KI [address] (HP) [address], [place] [address]AY: 07/27/2017 Secondary NOT GIVENUNK [place] Insurance:SELF PAY [facility] Number: Effective Repository Date:2017-06-28 07/26/2017 Paulette Tom Primary PAULETTE Tom [place] [id number] Insurance:ANNABELLA DILYARDDOB: [facility] [id number] Wau[facility] Number: Repository [address] [id number]: (330) Date:5395-66-86HQ [address] () [address] [address]CV: 07/26/2017 Secondary NOT GIVENUNK [place] Insurance:SELF PAY [facility] Number: Effective Repository Date:2017-06-28 06/28/2017 Paulette Tom Primary PAULETTE Tom Lupton [id number] Insurance:ANNABELLA DILYARDDOB: [facility] 7061-12-35BARProHealth [facility]aukes[facility] Number: [place]ository [address] [id number]: (330) Date:8084-14-17II [address] (HP) [address] [address]DV: 06/28/2017 Secondary NOT GIVENUNK [place] Insurance:SELF PAY [facility] Number: Effective Repository Date:2017-05-31 06/27/2017 Paulette Tom Primary PAULETTE Tom [place] [id number] Insurance:ANNABELLA DILYARDDOB: [facility] 5982-28-11WIFProHealth Waukes[facility] Number: [place]ository [address] [id number]: (330) Date:8676-66-60EJ [address] (HP) [address], [place] [address]MH: 06/27/2017 Secondary NOT GIVENUNK [place] Insurance:SELF PAY [facility] Number: Effective Repository Date:2017-05-31 06/18/2017 Paulette Tom Primary PAULETTE Tom [place] [id number] Insurance:ANNABELLA DILYARDDOB: [facility] 6027-75-69RBSProHealth Waukesha [facility] Number: Repository [address] [id number]: (330) Date:2856-93-84DZ [address] (HP) [address] [address]MG: 06/18/2017 Secondary NOT GIVENUNK [place] Insurance:SELF PAY [facility] Number: Effective Repository Date:2017-06-15 05/31/2017 Paulette Tom Primary PAULETTE Tom [place] [id number] Insurance:ANNABELLA DILYARDDOB: [facility] [id number] [facility]aukes[facility] Number: Repository [address] [id number]: (330) Date:7773-66-78MK [address] (HP) [address] [address]RG: 05/31/2017 Secondary NOT GIVENUNK [place] Insurance:SELF PAY [facility] Number: Effective Repository Date:2017-05-03 05/30/2017 Paulette Tom Primary PAULETTE Tom Lu[place] [id number] Insurance:ANNABELLA DILYARDDOB: [facility] 6271-41-02DYFProHealth Waukesha [facility] Number: Repository [address] [id number]: (330) Date:6336-22-65PY [address] (HP) [address] [address]EB: 05/30/2017 Secondary NOT GIVENUNK [place] Insurance:SELF PAY [facility] Number: Effective Repository Date:2017-05-03 05/10/2017 Paulette Tom Primary PAULETTE Tom [place] [id number] Insurance:ANNABELLA DILYARDDOB: [facility] 6958-53-07NLLProHealth [facility] Number: Repository [address] [id number]: (330) Date:7537-53-15IQ [address] (HP) [address] [address]KM: 05/10/2017 Secondary NOT GIVENUNK [place] Insurance:SELF PAY [facility] Number: Effective Repository Date:2017-05-10 05/03/2017 Paulette Tom Primary PAULETTE Tom [place] [id number] Insurance:ANNABELLA DILYARDDOB: [facility] 3614-29-06HKRProHealth Waukes[facility] Number: Repository [address] [id number]: (330) Date:6120-59-74KN [phone] (HP) [address] [address]FM: 05/03/2017 Secondary NOT GIVENUNK [place] Insurance:SELF PAY [facility] Number: Effective Repository Date:2017-04-03 05/02/2017 Paulette Tom Primary PAULETTE Tom [place] [id number] Insurance:ANNABELLA DILYARDDOB: [facility] 5294-80-06RZFProHealth Waukesha Memorial [facility] Number: Repository [address] [id number]: (330) Date:3923-68-85PF [phone] (HP) [address] [address]VW: 05/02/2017 Secondary NOT GIVENUNK [place] Insurance:SELF PAY [facility] Number: Effective Repository Date:2017-04-03 04/27/2017 Paulette Tom Primary PAULETTE Tom [place] [id number] Insurance:ANNABELLA DILYARDDOB: [facility] 6368-58-79XPFProHealth Waukes[facility] Number: Repository [address] [id number]: (330) Date:7347-59-82LE [phone] (HP) [address] [address]WP: 04/27/2017 Secondary NOT GIVENUNK [place] Insurance:SELF PAY [facility] Number: Effective Repository Date:2017-04-27 04/04/2017 Paulette Tom Primary PAULETTE Tom Lupton [id number] Insurance:ANNABELLA DILYARDDOB: [facility] 3787-14-90ENZProHealth [facility] Number: Repository [address] [id number]: (330) Date:0071-24-65XE [address] (HP) [address] [address]HN: 04/04/2017 Secondary NOT GIVENUNK [place] Insurance:SELF PAY [facility] Number: Effective Repository Date:2017-03-07 04/03/2017 Paulette Tom Primary PAULETTE Tom [place] [id number] Insurance:ANNABELLA DILYARDDOB: [facility] 5742-49-41UTFProHealth [facility] Number: Repository [address] [id number]: (330) Date:0804-23-76PV [address] (HP) [address] [address]YY: 04/03/2017 Secondary NOT GIVENUNK [place] Insurance:SELF PAY [facility] Number: Effective Repository Date:2017-03-07 03/07/2017 Paulette Tom Primary PAULETTE Tom [place] [id number] Insurance:ANNABELLA DILYARDDOB: [facility] [id number] Waukes[facility] Number: Repository [address] [id number]: (330) Date:5064-27-03DF [address] (HP) [address] [address]EA: 03/07/2017 Secondary NOT GIVENUNK [place] Insurance:SELF PAY [facility] Number: Effective Repository Date:2017-03-05 03/06/2017 Paulette Tom Primary PAULETTE Tom Lupton [id number] Insurance:ANNABELLA DILYARDDOB: [facility] 0004-75-27MPFProHealth Waukesha [facility] Number: Repository [address] [id number]: (330) Date:6590-81-07KI [phone] (QG) [place] [address]KP: 03/06/2017 Secondary NOT GIVENUNK [place] Insurance[facility]LF [facility] Effective Repository Date:2017-03-05
== END ==
PROVIDERS: Family Provider Family Medicine; PCP Family Medicine; Referring Provider Internal Medicine Rheumatology; Visit Provider Internal Medicine Rheumatology
DX: M33.92 Dermatopolymyositis, unspecified with myopathy (principal)
CPT/HCPCS: 96365; 96366; J7050; J1568

== ENCOUNTER → 2018-02-14 07:53 | Outpatient (CLI) | payer MEDICARE, SELFPAY ==
[2018-01-18 07:59] VITALS: BMI 25.9
[2018-02-14 08:04] VITALS: BP 162/83; PULSE 80; RESP 16; TEMP 36.6; O2SAT 100; BMI 27.1
[2018-02-14] MEDS: Immune Globulin 20 gm Premixed Solution IV ×2 (08:15→10:06)
[2018-02-14] MEDS: Immune Globulin 5 GM Premixed Solution IV (11:16)
== END ==
PROVIDERS: Family Provider Family Medicine; PCP Family Medicine; Referring Provider Internal Medicine Rheumatology; Visit Provider Internal Medicine Rheumatology
DX: M33.92 Dermatopolymyositis, unspecified with myopathy (principal)
CPT/HCPCS: 96365; 96366; A4216; J1568

== ENCOUNTER → 2018-02-15 07:58 | Outpatient (CLI) | payer MEDICARE, SELFPAY ==
[2018-01-18 07:59] VITALS: BMI 25.9
[2018-02-14 08:04] VITALS: BMI 27.1
[2018-02-15 08:07] VITALS: BP 145/86; PULSE 102; RESP 16; TEMP 37.1; O2SAT 99; BMI 27.0
[2018-02-15] MEDS: Immune Globulin 20 gm Premixed Solution IV ×2 (08:15→10:03)
[2018-02-15 09:21] VITALS: BP 146/73; PULSE 69; RESP 14; TEMP 36.6; O2SAT 96
[2018-02-15 11:12] VITALS: BP 132/80; PULSE 69; RESP 16; TEMP 36.6; O2SAT 98
[2018-02-15] MEDS: Immune Globulin 5 GM Premixed Solution IV (11:22)
== END ==
PROVIDERS: Family Provider Family Medicine; PCP Family Medicine; Referring Provider Internal Medicine Rheumatology; Visit Provider Internal Medicine Rheumatology
DX: M33.92 Dermatopolymyositis, unspecified with myopathy (principal)
CPT/HCPCS: 96365; 96366; A4216; J1568

== ENCOUNTER → 2018-03-14 07:52 | Outpatient (CLI) | payer MEDICARE, SELFPAY ==
[2018-02-15 08:07] VITALS: BMI 27.0
[2018-03-14 08:00] VITALS: BP 129/84; PULSE 97; RESP 16; TEMP 36.6; O2SAT 98; BMI 26.4
[2018-03-14] MEDS: Immune Globulin 20 gm Premixed Solution IV ×2 (08:17→10:09)
[2018-03-14] MEDS: Immune Globulin 5 GM Premixed Solution IV (11:22)
== END ==
PROVIDERS: Family Provider Family Medicine; PCP Family Medicine; Referring Provider Internal Medicine Rheumatology; Visit Provider Internal Medicine Rheumatology
DX: M33.92 Dermatopolymyositis, unspecified with myopathy (principal)
CPT/HCPCS: 96365; 96366; A4216; J1568

== ENCOUNTER → 2018-03-15 07:56 | Outpatient (CLI) | payer MEDICARE, SELFPAY ==
[2018-02-15 08:07] VITALS: BMI 27.0
[2018-03-14 08:00] VITALS: BMI 26.4
[2018-03-15 08:07] VITALS: BP 143/84; PULSE 104; RESP 16; TEMP 36.9; O2SAT 100
[2018-03-15 08:08] VITALS: BMI 26.4
[2018-03-15] MEDS: Immune Globulin 20 gm Premixed Solution IV ×2 (08:27→10:28)
[2018-03-15 08:55] VITALS: BP 138/84; PULSE 83; RESP 16; TEMP 36.9; O2SAT 96
[2018-03-15 09:30] VITALS: BP 137/81; PULSE 91; RESP 16; TEMP 36.6; O2SAT 98
[2018-03-15] MEDS: Immune Globulin 5 GM Premixed Solution IV (11:40)
== END ==
PROVIDERS: Family Provider Family Medicine; PCP Family Medicine; Referring Provider Internal Medicine Rheumatology; Visit Provider Internal Medicine Rheumatology
DX: M33.92 Dermatopolymyositis, unspecified with myopathy (principal)
CPT/HCPCS: 96365; 96366; A4216; J1568

== ENCOUNTER → 2018-03-19 09:05 | Outpatient (CLI) | payer MEDICARE, SELFPAY ==
[2018-03-15 08:08] VITALS: BMI 26.4
[2018-03-19 10:37] LABS: Absolute Lymphocyte Count 1.11 X10^3/ul (0.83-4.51); Absolute Neutrophil Count 1.8 X10^3/uL (2.0-7.7); Basophil# 0.06 X10^3/uL; Basophil% 1.5 % (0-1); Eosinophil# 0.08 X10^3/uL; Hematocrit 39.6 % (37-47); Hemoglobin 12.9 g/dl (12.0-15.0); Lymphocyte # 1.11 X10^3/ul (4.0); Lymphocyte % 28.2 % (19-41); Mean Corp Hgb Conc 32.6 g/gl (32-36); Mean Corpuscular Hgb 30.2 pg (27.0-32.0); Mean Corpuscular Volume 92.7 fL (81-99); Mean Platelet Vol. 9.3 fl (6.2-12.0); Monocyte# 0.87 X10^3/uL; Monocyte% 22.1 % (0-10); Neutrophil % 45.7 % (47-70); Platelet Count 209 K/mm3 (150-450); RBC Distribution Width CV 15.5 % (11.6-14.6); RBC Distribution Width SD 51.2 fl (35.1-43.9); Red Blood Count 4.27 M/mm3 (4.2-5.4); White Blood Count 3.9 K/mm3 (4.4-11.0)
[2018-03-19 10:41] LABS: POSITIVE COUNT NO; POSITIVE DIFFERENTIAL NO; POSITIVE MORPHOLOGY NO
[2018-03-19 10:49] LABS: ALB/GLOB Ratio 0.6 RATIO (0.9-2.4); AST(SGOT) 25 U/L (15-37); Alanine Aminotransfer ALT/SGPT 29 U/L (13-56); Albumin, Serum 3.5 g/dL (3.2-5.0); Alkaline Phosphatase 69 U/L (45-117); Anion Gap 7 (5-15); BUN 12 mg/dL (7-18); BUN/Creat Ratio 17.5 RATIO (10-20); CPK Total, Creatine Kinase 47 U/L (26-192); Calcium,Total 9.3 mg/dL (8.5-10.1); Chloride 107 mmol/L (98-107); Creatinine, Serum 0.69 mg/dL (0.55-1.02); EST Glomerular Filtration Rate 87 mL/min (>60); Est Glom Filt Rate - Afr Amer 106 mL/min (>60); Globulin 5.9 g/dL (2.2-4.2); Glucose 99 mg/dL (74-106); Potassium 3.6 mmol/L (3.5-5.1); Protein, Total 9.4 g/dL (6.4-8.2); Sodium Level 138 mmol/L (136-145)
== END ==
PROVIDERS: Family Provider Family Medicine; PCP Family Medicine; Referring Provider Internal Medicine Rheumatology; Visit Provider Internal Medicine Rheumatology
DX: M33.92 Dermatopolymyositis, unspecified with myopathy (principal); M15.9 Polyosteoarthritis, unspecified; M51.36 Other intervertebral disc degeneration, lumbar region; M81.0 Age-related osteoporosis without current pathological fracture; I10 Essential (primary) hypertension; E03.9 Hypothyroidism, unspecified; E21.1 Secondary hyperparathyroidism, not elsewhere classified; Z79.899 Other long term (current) drug therapy
CPT/HCPCS: 36415; 80053; 82550; 85025

== ENCOUNTER → 2018-04-11 07:53 | Outpatient (CLI) | payer MEDICARE, SELFPAY ==
[2018-03-14 08:00] VITALS: BMI 26.4
[2018-03-15 08:08] VITALS: BMI 26.4
[2018-04-11 08:01] VITALS: BP 154/78; PULSE 86; RESP 18; TEMP 36.8; O2SAT 98; BMI 26.2
[2018-04-11] MEDS: Immune Globulin 20 gm Premixed Solution IV ×2 (08:24→10:20)
[2018-04-11] MEDS: Immune Globulin 5 GM Premixed Solution IV (11:37)
== END ==
PROVIDERS: Family Provider Family Medicine; PCP Family Medicine; Referring Provider Internal Medicine Rheumatology; Visit Provider Internal Medicine Rheumatology
DX: M33.92 Dermatopolymyositis, unspecified with myopathy (principal)
CPT/HCPCS: 96365; 96366; A4216; J1568

== ENCOUNTER → 2018-04-12 07:52 | Outpatient (CLI) | payer MEDICARE, SELFPAY ==
[2018-03-14 08:00] VITALS: BMI 26.4
[2018-04-11 08:01] VITALS: BMI 26.2
[2018-04-12 07:57] VITALS: BP 142/89; PULSE 97; RESP 18; TEMP 36.3; O2SAT 97; BMI 26.2
[2018-04-12] MEDS: Immune Globulin 20 gm Premixed Solution IV ×2 (08:15→10:09)
[2018-04-12] MEDS: Immune Globulin 5 GM Premixed Solution IV (11:24)
== END ==
PROVIDERS: Family Provider Family Medicine; PCP Family Medicine; Referring Provider Internal Medicine Rheumatology; Visit Provider Internal Medicine Rheumatology
DX: M33.92 Dermatopolymyositis, unspecified with myopathy (principal)
CPT/HCPCS: 96365; 96366; A4216; J1568

== ENCOUNTER → 2018-04-29 08:46 | Outpatient (CLI) | payer MEDICARE, SELFPAY ==
[2018-04-12 07:57] VITALS: BMI 26.2
[2018-04-29 11:01] LABS: Vitamin D,25 Hydroxy 70.3 ng/mL (29.95-100.01)
[2018-04-29 11:12] LABS: ALB/GLOB Ratio 0.8 RATIO (0.9-2.4); AST(SGOT) 25 U/L (15-37); Alanine Aminotransfer ALT/SGPT 29 U/L (13-56); Albumin, Serum 3.6 g/dL (3.2-5.0); Alkaline Phosphatase 65 U/L (45-117); Anion Gap 7 (5-15); BUN 16 mg/dL (7-18); BUN/Creat Ratio 27.9 RATIO (10-20); Calcium,Total 8.5 mg/dL (8.5-10.1); Chloride 109 mmol/L (98-107); Creatinine, Serum 0.57 mg/dL (0.55-1.02); EST Glomerular Filtration Rate 107 mL/min (>60); Est Glom Filt Rate - Afr Amer 130 mL/min (>60); Globulin 4.4 g/dL (2.2-4.2); Glucose 84 mg/dL (74-106); Potassium 3.8 mmol/L (3.5-5.1); Sodium Level 140 mmol/L (136-145); Thyroid Stim Hormone (TSH) 1.64 uIU/mL (0.358-3.74)
[2018-04-29 11:29] LABS: PTHIN 137.3 pg/mL (18.4-80.1)
== END ==
PROVIDERS: Family Provider Family Medicine; PCP Family Medicine; Referring Provider Internal Medicine Endocrinology, Diabetes & Metabolism; Visit Provider Internal Medicine Endocrinology, Diabetes & Metabolism
DX: E03.8 Other specified hypothyroidism (principal); E21.1 Secondary hyperparathyroidism, not elsewhere classified; E55.9 Vitamin D deficiency, unspecified
CPT/HCPCS: 36415; 80053; 82306; 83970; 84443

== ENCOUNTER → 2018-05-27 | Outpatient (CLI) | payer MEDICARE, SELFPAY ==
[2018-04-11 08:01] VITALS: BMI 26.2
[2018-04-12 07:57] VITALS: BMI 26.2
[2018-05-27 07:57] VITALS: BP 151/97; PULSE 85; RESP 16; TEMP 36.6; O2SAT 98; BMI 26.6
[2018-05-27] MEDS: Immune Globulin 20 gm Premixed Solution IV ×2 (08:29→10:26)
[2018-05-27] MEDS: Immune Globulin 5 GM Premixed Solution IV (11:54)
== END | disposition home or self-care (01) ==
LOC: MEDOUTP 07:51
PROVIDERS: Family Provider Family Medicine; PCP Family Medicine; Referring Provider Internal Medicine Rheumatology; Visit Provider Internal Medicine Rheumatology
DX: M33.92 Dermatopolymyositis, unspecified with myopathy (principal)
CPT/HCPCS: 96365; 96366; J1568

== ENCOUNTER → 2018-05-28 | Outpatient (CLI) | payer MEDICARE, SELFPAY ==
[2018-04-11 08:01] VITALS: BMI 26.2
[2018-05-27 07:57] VITALS: BMI 26.6
[2018-05-28 08:04] VITALS: BP 154/93; PULSE 97; RESP 18; TEMP 36.7; O2SAT 97; BMI 26.6
[2018-05-28] MEDS: Immune Globulin 20 gm Premixed Solution IV ×2 (08:27→10:30)
[2018-05-28] MEDS: Immune Globulin 5 GM Premixed Solution IV (11:48)
== END | disposition home or self-care (01) ==
LOC: MEDOUTP 07:56
PROVIDERS: Family Provider Family Medicine; PCP Family Medicine; Referring Provider Internal Medicine Rheumatology; Visit Provider Internal Medicine Rheumatology
DX: M33.92 Dermatopolymyositis, unspecified with myopathy (principal)
CPT/HCPCS: 96365; 96366; A4216; J1568

== ENCOUNTER → 2018-07-03 | Outpatient (CLI) | payer MEDICARE, SELFPAY ==
[2018-05-28 08:04] VITALS: BMI 26.6
[2018-07-03 10:24] LABS: BUN 14 mg/dL (7-18); Creatinine, Serum 0.64 mg/dL (0.55-1.02); EST Glomerular Filtration Rate 95 mL/min (>60); Glucose 97 mg/dL (74-106)
[2018-07-03 10:25] LABS: ALB/GLOB Ratio 0.8 RATIO (0.9-2.4); AST(SGOT) 20 U/L (15-37); Alanine Aminotransfer ALT/SGPT 24 U/L (13-56); Albumin, Serum 3.6 g/dL (3.2-5.0); Alkaline Phosphatase 51 U/L (45-117); Anion Gap 6 (5-15); CPK Total, Creatine Kinase 100 U/L (26-192); Calcium,Total 9.6 mg/dL (8.5-10.1); Chloride 107 mmol/L (98-107); Est Glom Filt Rate - Afr Amer 115 mL/min (>60); Globulin 4.5 g/dL (2.2-4.2); Potassium 3.7 mmol/L (3.5-5.1); Protein, Total 8.1 g/dL (6.4-8.2); Sodium Level 141 mmol/L (136-145)
[2018-07-03 14:31] LABS: Absolute Lymphocyte Count 0.86 X10^3/ul (0.83-4.51); Absolute Neutrophil Count 2.1 X10^3/uL (2.0-7.7); Basophil# 0.04 X10^3/uL; Eosinophil# 0.14 X10^3/uL; Eosinophils% 3.6 % (0-5); Hematocrit 38.9 % (37-47); Hemoglobin 12.9 g/dl (12.0-15.0); Lymphocyte # 0.86 X10^3/ul (4.0); Lymphocyte % 22.3 % (19-41); Mean Corp Hgb Conc 33.2 g/gl (32-36); Mean Corpuscular Volume 90.5 fL (81-99); Mean Platelet Vol. 9.2 fl (6.2-12.0); Monocyte# 0.67 X10^3/uL; Monocyte% 17.4 % (0-10); Neutrophil # 2.13 X10^3/uL (2.7-7.7); Neutrophil % 55.2 % (47-70); POSITIVE COUNT NO; POSITIVE DIFFERENTIAL NO; POSITIVE MORPHOLOGY NO; Platelet Count 262 K/mm3 (150-450); RBC Distribution Width CV 15.9 % (11.6-14.6); RBC Distribution Width SD 51.5 fl (35.1-43.9); White Blood Count 3.9 K/mm3 (4.4-11.0)
== END | disposition home or self-care (01) ==
LOC: MTLAB 08:10
PROVIDERS: Family Provider Family Medicine; PCP Family Medicine; Referring Provider Internal Medicine Rheumatology; Visit Provider Internal Medicine Rheumatology
DX: M33.92 Dermatopolymyositis, unspecified with myopathy (principal); M15.9 Polyosteoarthritis, unspecified; M51.36 Other intervertebral disc degeneration, lumbar region; M81.0 Age-related osteoporosis without current pathological fracture; I10 Essential (primary) hypertension; E03.8 Other specified hypothyroidism; E21.1 Secondary hyperparathyroidism, not elsewhere classified; Z79.899 Other long term (current) drug therapy
CPT/HCPCS: 36415; 80053; 82550; 83970; 85025

== ENCOUNTER → 2018-07-08 | Outpatient (CLI) | payer MEDICARE, SELFPAY ==
[2018-05-28 08:04] VITALS: BMI 26.6
[2018-07-08 07:56] VITALS: BP 140/78; PULSE 96; RESP 16; TEMP 36.8; O2SAT 98; BMI 26.4
[2018-07-08] MEDS: Immune Globulin 20 gm Premixed Solution IV ×2 (08:36→10:34)
== END | disposition home or self-care (01) ==
LOC: MEDOUTP 07:50
PROVIDERS: Family Provider Family Medicine; PCP Family Medicine; Referring Provider Internal Medicine Rheumatology; Visit Provider Internal Medicine Rheumatology
DX: M33.92 Dermatopolymyositis, unspecified with myopathy (principal)
CPT/HCPCS: 96365; 96366; A4216; J1568

== ENCOUNTER → 2018-07-09 | Outpatient (CLI) | payer MEDICARE, SELFPAY ==
[2018-05-28 08:04] VITALS: BMI 26.6
[2018-07-08 07:56] VITALS: BMI 26.4
[2018-07-09 07:56] VITALS: BP 149/84; PULSE 103; RESP 16; TEMP 36.6; O2SAT 98; BMI 26.2
[2018-07-09] MEDS: Immune Globulin 20 gm Premixed Solution IV ×2 (08:19→10:15)
[2018-07-09] MEDS: Immune Globulin 10 gm Premixed Solution IV (11:31)
== END | disposition home or self-care (01) ==
LOC: MEDOUTP 07:48
PROVIDERS: Family Provider Family Medicine; PCP Family Medicine; Referring Provider Internal Medicine Rheumatology; Visit Provider Internal Medicine Rheumatology
DX: M33.92 Dermatopolymyositis, unspecified with myopathy (principal)
CPT/HCPCS: 96365; 96366; A4216; J1568

== ENCOUNTER → 2018-07-15 | Outpatient (CLI) | payer MEDICARE, SELFPAY ==
[2018-05-28 08:04] VITALS: BMI 26.6
[2018-07-09 07:56] VITALS: BMI 26.2
--- NOTE | 2018-07-15 13:31 | BI_ITS ---
MAMMOGRAPHY - BILATERAL SCREENING REASON FOR EXAM: Female, 82 years old. Routine annual screening examination. PERTINENT HISTORY: Sister with breast cancer. Remote left excisional breast biopsy and left stereotactic breast biopsy. Patient has a history of dermatomyositis. TECHNIQUE: Digital bilateral breast rj (3D mammographic acquisition) in the CC and MLO projections. 2-D mediolateral oblique (MLO) and craniocaudad (CC) views of both breasts were obtained. CAD: Full Field Digital Mammography with Computer Added Detection was performed. COMPARISON: Comparison is made with prior study dated October 04, 2017 and June 18, 2017. FINDINGS: Breast Composition: The breasts are almost entirely fatty. There are no dominant masses or suspicious calcifications. Stable scattered bilateral microcalcifications most likely secondary to the patient's known history of dermatomyositis. Stable secretory calcifications bilaterally. No other significant abnormalities are identified. There has been no significant change since the prior study. BI/SCREEN MAMM (CAD) W/RJ BILAT IMPRESSION: Stable bilateral screening mammogram. Yearly follow-up mammogram recommended. (A) ASSESSMENT CATEGORY: BIRADS Category 2: Benign. A letter regarding these results will be sent to the patient by the facility within 30 days. Approximately 10% of breast cancers are not detected by mammography. A normal mammogram should not delay biopsy of a clinically suspicious abnormality. [id number] Electronically Signed: Jose Jackson, at 14:36 EDT , Service support ,
== END | disposition home or self-care (01) ==
LOC: OPBI 13:29
PROVIDERS: Family Provider Family Medicine; PCP Family Medicine; Referring Provider Family Medicine; Visit Provider Family Medicine
DX: Z12.31 Encounter for screening mammogram for malignant neoplasm of breast (principal)
CPT/HCPCS: 77063; 77067

== ENCOUNTER → 2018-08-19 | Outpatient (CLI) | payer MEDICARE, SELFPAY ==
[2018-07-09 07:56] VITALS: BMI 26.2
[2018-08-19 08:09] VITALS: BP 128/81; PULSE 84; RESP 16; TEMP 36.4; O2SAT 98; BMI 25.9
[2018-08-19] MEDS: Immune Globulin 20 gm Premixed Solution IV ×2 (08:31→10:27)
== END | disposition home or self-care (01) ==
LOC: MEDOUTP 07:56
PROVIDERS: Family Provider Family Medicine; PCP Family Medicine; Referring Provider Internal Medicine Rheumatology; Visit Provider Internal Medicine Rheumatology
DX: M33.92 Dermatopolymyositis, unspecified with myopathy (principal)
CPT/HCPCS: 96365; 96366; A4216; J1568

== ENCOUNTER → 2018-08-20 | Outpatient (CLI) | payer MEDICARE, SELFPAY ==
[2018-07-09 07:56] VITALS: BMI 26.2
[2018-08-19 08:09] VITALS: BMI 25.9
[2018-08-20 08:03] VITALS: BP 142/89; PULSE 89; RESP 16; TEMP 36.6; O2SAT 97; BMI 25.9
[2018-08-20] MEDS: Immune Globulin 20 gm Premixed Solution IV ×2 (08:39→10:29)
[2018-08-20] MEDS: Immune Globulin 10 gm Premixed Solution IV (11:48)
== END | disposition home or self-care (01) ==
PROVIDERS: Family Provider Family Medicine; PCP Family Medicine; Referring Provider Internal Medicine Rheumatology; Visit Provider Internal Medicine Rheumatology
DX: M33.92 Dermatopolymyositis, unspecified with myopathy (principal)
CPT/HCPCS: 96365; 96366; A4216; J1568

== ENCOUNTER → 2018-08-26 | Outpatient (CLI) | payer MEDICARE, SELFPAY ==
[2018-08-20 08:03] VITALS: BMI 25.9
[2018-08-26 10:07] LABS: Vitamin D,25 Hydroxy 61.2 ng/mL (29.95-100.01)
[2018-08-26 10:10] LABS: ALB/GLOB Ratio 0.8 RATIO (0.9-2.4); AST(SGOT) 18 U/L (15-37); Alanine Aminotransfer ALT/SGPT 21 U/L (13-56); Albumin, Serum 3.7 g/dL (3.2-5.0); Alkaline Phosphatase 61 U/L (45-117); Anion Gap 4 (5-15); BUN 13 mg/dL (7-18); BUN/Creat Ratio 19.6 RATIO (10-20); Calcium,Total 9.4 mg/dL (8.5-10.1); Chloride 107 mmol/L (98-107); Creatinine, Serum 0.66 mg/dL (0.55-1.02); EST Glomerular Filtration Rate 91 mL/min (>60); Est Glom Filt Rate - Afr Amer 110 mL/min (>60); Globulin 4.9 g/dL (2.2-4.2); Glucose 90 mg/dL (74-106); Potassium 3.9 mmol/L (3.5-5.1); Protein, Total 8.6 g/dL (6.4-8.2); Sodium Level 138 mmol/L (136-145)
[2018-08-26 10:25] LABS: PTHIN 37.6 pg/mL (18.4-80.1)
[2018-08-29 11:15] LABS: Thyroid Stim Hormone (TSH) 1.35 uIU/mL (0.358-3.74)
== END | disposition home or self-care (01) ==
LOC: MTLAB 08:33
PROVIDERS: Family Provider Family Medicine; PCP Family Medicine; Referring Provider Internal Medicine Endocrinology, Diabetes & Metabolism; Visit Provider Internal Medicine Endocrinology, Diabetes & Metabolism
DX: E55.9 Vitamin D deficiency, unspecified (principal); E03.8 Other specified hypothyroidism; E21.1 Secondary hyperparathyroidism, not elsewhere classified
CPT/HCPCS: 36415; 80053; 82306; 83970; 84443

== ENCOUNTER → 2018-09-23 | Outpatient (CLI) | payer MEDICARE, SELFPAY ==
[2018-08-20 08:03] VITALS: BMI 25.9
[2018-09-23 10:11] LABS: Absolute Lymphocyte Count 0.99 X10^3/uL (0.83-4.51); Absolute Neutrophil Count 3.7 X10^3/uL (2.0-7.7); Basophil# 0.07 X10^3/uL; Basophil% 1.2 % (0-1); Eosinophil# 0.16 X10^3/uL; Eosinophils% 2.8 % (0-5); Hematocrit 39.7 % (37-47); Lymphocyte # 0.99 X10^3/ul (4.0); Lymphocyte % 17.6 % (19-41); Mean Corp Hgb Conc 32.7 g/dL (32-36); Mean Corpuscular Hgb 30.7 pg (27.0-32.0); Mean Corpuscular Volume 93.6 fL (81-99); Monocyte# 0.69 X10^3/uL; Monocyte% 12.3 % (0-10); NRBC Flagged by Analyzer 0 % (0-5); Neutrophil # 3.69 X10^3/uL (2.7-7.7); Neutrophil % 65.7 % (47-70); Platelet Count 247 K/mm3 (150-450); RBC Distribution Width CV 14.6 % (11.6-14.6); RBC Distribution Width SD 49.5 fl (35.1-43.9); Red Blood Count 4.24 M/mm3 (4.2-5.4); White Blood Count 5.6 K/mm3 (4.4-11.0)
[2018-09-23 10:53] LABS: ALB/GLOB Ratio 0.8 RATIO (0.9-2.4); AST(SGOT) 22 U/L (15-37); Alanine Aminotransfer ALT/SGPT 27 U/L (13-56); Albumin, Serum 3.5 g/dL (3.2-5.0); Alkaline Phosphatase 67 U/L (45-117); Anion Gap 6 (5-15); BUN 12 mg/dL (7-18); BUN/Creat Ratio 18.5 RATIO (10-20); CPK Total, Creatine Kinase 42 U/L (26-192); Calcium,Total 9.5 mg/dL (8.5-10.1); Chloride 109 mmol/L (98-107); Creatinine, Serum 0.65 mg/dL (0.55-1.02); EST Glomerular Filtration Rate 93 mL/min (>60); Est Glom Filt Rate - Afr Amer 113 mL/min (>60); Globulin 4.3 g/dL (2.2-4.2); Glucose 86 mg/dL (74-106); Potassium 3.7 mmol/L (3.5-5.1); Protein, Total 7.8 g/dL (6.4-8.2); Sodium Level 141 mmol/L (136-145)
== END | disposition home or self-care (01) ==
LOC: MTLAB 08:07
PROVIDERS: Family Provider Family Medicine; PCP Family Medicine; Referring Provider Internal Medicine Rheumatology; Visit Provider Internal Medicine Rheumatology
DX: M33.92 Dermatopolymyositis, unspecified with myopathy (principal); M15.9 Polyosteoarthritis, unspecified; M51.36 Other intervertebral disc degeneration, lumbar region; M81.0 Age-related osteoporosis without current pathological fracture; I10 Essential (primary) hypertension; E03.9 Hypothyroidism, unspecified; E21.1 Secondary hyperparathyroidism, not elsewhere classified; Z79.899 Other long term (current) drug therapy
CPT/HCPCS: 36415; 80053; 82550; 85025

== ENCOUNTER → 2018-10-08 | Outpatient (CLI) | payer MEDICARE, SELFPAY ==
[2018-08-20 08:03] VITALS: BMI 25.9
[2018-10-08 08:05] VITALS: BP 167/92; PULSE 101; RESP 16; TEMP 36.2; O2SAT 99; BMI 26.2
[2018-10-08] MEDS: Immune Globulin 20 gm Premixed Solution 46 BAG IV (08:33)
[2018-10-08] MEDS: Immune Globulin 20 gm Premixed Solution 180 BAG IV (10:22)
[2018-10-08] MEDS: Immune Globulin 5 GM Premixed Solution 180 BAG IV (11:35)
== END | disposition home or self-care (01) ==
LOC: MEDOUTP 08:00
PROVIDERS: Family Provider Family Medicine; PCP Family Medicine; Referring Provider Internal Medicine Rheumatology; Visit Provider Internal Medicine Rheumatology
DX: M33.92 Dermatopolymyositis, unspecified with myopathy (principal)
CPT/HCPCS: 96365; 96366; A4216; J1568

== ENCOUNTER → 2018-10-09 | Outpatient (CLI) | payer MEDICARE, SELFPAY ==
[2018-08-20 08:03] VITALS: BMI 25.9
[2018-10-08 08:05] VITALS: BMI 26.2
[2018-10-09 08:01] VITALS: BP 166/92; PULSE 100; RESP 16; TEMP 36.5; O2SAT 98; BMI 25.9
[2018-10-09] MEDS: Immune Globulin 20 gm Premixed Solution 46 BAG IV (08:35)
[2018-10-09] MEDS: Immune Globulin 20 gm Premixed Solution 180 BAG IV (10:23)
[2018-10-09] MEDS: Immune Globulin 5 GM Premixed Solution 180 BAG IV (11:41)
== END | disposition home or self-care (01) ==
LOC: MEDOUTP 07:52
PROVIDERS: Family Provider Family Medicine; PCP Family Medicine; Referring Provider Internal Medicine Rheumatology; Visit Provider Internal Medicine Rheumatology
DX: M33.92 Dermatopolymyositis, unspecified with myopathy (principal)
CPT/HCPCS: 96365; 96366; A4216; J1568

== ENCOUNTER → 2018-11-26 | Outpatient (CLI) | payer MEDICARE, SELFPAY ==
[2018-10-09 08:01] VITALS: BMI 25.9
[2018-11-26 08:05] VITALS: BP 149/79; PULSE 81; RESP 18; TEMP 36.9; O2SAT 97; BMI 26.5
[2018-11-26] MEDS: Immune Globulin 20 gm Premixed Solution 46 BAG IV (08:34)
[2018-11-26] MEDS: Immune Globulin 20 gm Premixed Solution 180 BAG IV (10:24)
[2018-11-26] MEDS: Immune Globulin 5 GM Premixed Solution 180 BAG IV (11:43)
== END | disposition home or self-care (01) ==
LOC: MEDOUTP 07:54
PROVIDERS: Family Provider Family Medicine; PCP Family Medicine; Referring Provider Internal Medicine Rheumatology; Visit Provider Internal Medicine Rheumatology
DX: M33.92 Dermatopolymyositis, unspecified with myopathy (principal)
CPT/HCPCS: 96365; 96366; A4216; J1568

== ENCOUNTER → 2018-11-27 | Outpatient (CLI) | payer MEDICARE, SELFPAY ==
[2018-10-09 08:01] VITALS: BMI 25.9
[2018-11-26 08:05] VITALS: BMI 26.5
[2018-11-27 07:59] VITALS: BP 122/95; PULSE 93; RESP 18; TEMP 36.4; O2SAT 99; BMI 26.4
[2018-11-27] MEDS: Immune Globulin 20 gm Premixed Solution 46 BAG IV (08:29)
[2018-11-27] MEDS: Immune Globulin 20 gm Premixed Solution 180 BAG IV (10:18)
[2018-11-27] MEDS: Immune Globulin 5 GM Premixed Solution 180 BAG IV (11:37)
== END | disposition home or self-care (01) ==
LOC: MEDOUTP 07:52
PROVIDERS: Family Provider Family Medicine; PCP Family Medicine; Referring Provider Internal Medicine Rheumatology; Visit Provider Internal Medicine Rheumatology
DX: M33.92 Dermatopolymyositis, unspecified with myopathy (principal)
CPT/HCPCS: 96365; 96366; A4216; J1568

== ENCOUNTER → 2018-12-09 | Outpatient (CLI) | payer MEDICARE, SELFPAY ==
[2018-10-09 08:01] VITALS: BMI 25.9
[2018-11-27 07:59] VITALS: BMI 26.4
--- NOTE | 2018-12-09 16:32 | CT_ITS ---
STUDY: CT LEFT FEMUR WITHOUT CONTRAST REASON FOR EXAM: Female, 83 years old. Mass of the left inner thigh History of dermatomyositis RADIATION DOSAGE (If Supplied By Facility): CTDIvol = ( 11 ) mGy, DLP = ( 382.74 ) mGycm TECHNIQUE: Transaxial CT imaging of the femur was performed. Sagittal and coronal images were reconstructed. Individualized dose optimization techniques were used for this CT. COMPARISON: None. FINDINGS: Femoral shaft is diffusely osteopenic. No evidence for acute fracture. No lytic or sclerotic bony lesions are observed. There is masslike collection of amorphous calcification with interspersed fatty changes within the medial aspect of the upper thigh measuring approximately 11.7 cm in length and 2.8 cm in width which may represent calcification related to dermatomyositis. There is a similar but smaller appearing collection of calcifications in the posterolateral aspect of the thigh Liposarcoma may have a similar appearance although less likely. CT guided biopsy would be helpful for further evaluation if clinically warranted. CT/Extremity Lower without Contra IMPRESSION: Large mass like collection of calcification with interspersed fat within the medial aspect of the thigh most likely representing calcification related to dermatomyositis Electronically Signed: Tho Mehta MD at 19:58 EST , Service support ,
== END | disposition home or self-care (01) ==
LOC: CT 16:31
PROVIDERS: Family Provider Family Medicine; PCP Family Medicine; Referring Provider Family Medicine; Visit Provider Family Medicine
DX: R22.42 Localized swelling, mass and lump, left lower limb (principal); M33.90 Dermatopolymyositis, unspecified, organ involvement unspecified
CPT/HCPCS: 73700

== ENCOUNTER → 2019-01-06 08:07 | Outpatient (CLI) | payer MEDICARE, SELFPAY ==
[2018-11-27 07:59] VITALS: BMI 26.4
[2019-01-06 10:10] LABS: Absolute Lymphocyte Count 1.04 X10^3/uL (0.83-4.51); Absolute Neutrophil Count 3.1 X10^3/uL (2.0-7.7); Basophil# 0.06 X10^3/uL; Basophil% 1.2 % (0-1); Eosinophil# 0.12 X10^3/uL; Eosinophils% 2.3 % (0-5); Hematocrit 40.1 % (37-47); Hemoglobin 13.2 g/dL (12.0-15.0); Lymphocyte # 1.04 X10^3/ul (4.0); Lymphocyte % 20.4 % (19-41); Mean Corp Hgb Conc 32.9 g/dL (32-36); Mean Corpuscular Hgb 29.8 pg (27.0-32.0); Mean Corpuscular Volume 90.5 fL (81-99); Mean Platelet Vol. 10.5 fl (6.2-12.0); Monocyte% 15.7 % (0-10); NRBC Flagged by Analyzer 0 % (0-5); Neutrophil # 3.06 X10^3/uL (2.7-7.7); Neutrophil % 59.8 % (47-70); POSITIVE COUNT YES; Platelet Count 227 K/mm3 (150-450); RBC Distribution Width CV 15.4 % (11.6-14.6); RBC Distribution Width SD 50.9 fl (35.1-43.9); Red Blood Count 4.43 M/mm3 (4.2-5.4); White Blood Count 5.1 K/mm3 (4.4-11.0)
[2019-01-06 10:14] LABS: Differential Indicated SCAN CRITERIA MET
[2019-01-06 10:26] LABS: AST(SGOT) 20 U/L (15-37); Alanine Aminotransfer ALT/SGPT 27 U/L (13-56); Albumin, Serum 3.8 g/dL (3.2-5.0); Alkaline Phosphatase 89 U/L (45-117); Anion Gap 8 (5-15); BUN 16 mg/dL (7-18); BUN/Creat Ratio 24.2 RATIO (10-20); CPK Total, Creatine Kinase 62 U/L (26-192); Calcium,Total 8.8 mg/dL (8.5-10.1); Chloride 107 mmol/L (98-107); Creatinine, Serum 0.66 mg/dL (0.55-1.02); EST Glomerular Filtration Rate 91 mL/min (>60); Est Glom Filt Rate - Afr Amer 110 mL/min (>60); Glucose 95 mg/dL (74-106); Potassium 3.6 mmol/L (3.5-5.1); Protein, Total 7.8 g/dL (6.4-8.2); Sodium Level 139 mmol/L (136-145); Thyroid Stim Hormone (TSH) 2.34 uIU/mL (0.358-3.74)
[2019-01-07 09:59] LABS: PTHIN 132.9 pg/mL (18.4-80.1)
== END ==
PROVIDERS: Family Provider Family Medicine; PCP Family Medicine; Referring Provider Internal Medicine Rheumatology; Visit Provider Internal Medicine Rheumatology
DX: E03.8 Other specified hypothyroidism (principal); E21.1 Secondary hyperparathyroidism, not elsewhere classified; E55.9 Vitamin D deficiency, unspecified; M33.92 Dermatopolymyositis, unspecified with myopathy; M15.9 Polyosteoarthritis, unspecified; M51.36 Other intervertebral disc degeneration, lumbar region; M81.0 Age-related osteoporosis without current pathological fracture; I10 Essential (primary) hypertension; Z79.899 Other long term (current) drug therapy
CPT/HCPCS: 36415; 80053; 82306; 82550; 83970; 84443; 85025

== ENCOUNTER → 2019-01-07 07:54 | Outpatient (CLI) | payer MEDICARE, SELFPAY ==
[2018-11-27 07:59] VITALS: BMI 26.4
[2019-01-07 08:02] VITALS: BP 168/91; PULSE 88; RESP 16; TEMP 36.2; O2SAT 97; BMI 26.5
[2019-01-07] MEDS: Immune Globulin 20 gm Premixed Solution 46 BAG IV (08:18)
[2019-01-07] MEDS: Immune Globulin 20 gm Premixed Solution 180 BAG IV (10:13)
[2019-01-07] MEDS: Immune Globulin 5 GM Premixed Solution 180 BAG IV (11:27)
== END ==
PROVIDERS: Family Provider Family Medicine; PCP Family Medicine; Referring Provider Internal Medicine Rheumatology; Visit Provider Internal Medicine Rheumatology
DX: M33.92 Dermatopolymyositis, unspecified with myopathy (principal)
CPT/HCPCS: 96365; 96366; A4216; J1568

== ENCOUNTER → 2019-01-08 07:52 | Outpatient (CLI) | payer MEDICARE, SELFPAY ==
[2018-11-27 07:59] VITALS: BMI 26.4
[2019-01-07 08:02] VITALS: BMI 26.5
[2019-01-08] MEDS: Immune Globulin 20 gm Premixed Solution 46 BAG IV (08:32)
[2019-01-08 08:35] VITALS: BP 169/77; PULSE 101; RESP 16; TEMP 36.6; O2SAT 97; BMI 26.5
[2019-01-08] MEDS: Immune Globulin 20 gm Premixed Solution 180 BAG IV (10:28)
[2019-01-08] MEDS: Immune Globulin 5 GM Premixed Solution 180 BAG IV (11:51)
== END ==
PROVIDERS: Family Provider Family Medicine; PCP Family Medicine; Referring Provider Internal Medicine Rheumatology; Visit Provider Internal Medicine Rheumatology
DX: M33.92 Dermatopolymyositis, unspecified with myopathy (principal)
CPT/HCPCS: 96365; 96366; A4216; J1568

== ENCOUNTER → 2019-02-18 07:54 | Outpatient (CLI) | payer MEDICARE, SELFPAY ==
[2019-01-08 08:35] VITALS: BMI 26.5
[2019-02-18 08:05] VITALS: BP 153/81; PULSE 98; RESP 18; TEMP 36.9; O2SAT 97; BMI 26.5
[2019-02-18] MEDS: Immune Globulin 20 gm Premixed Solution 46 BAG IV (08:18)
[2019-02-18] MEDS: Immune Globulin 20 gm Premixed Solution 180 BAG IV (10:11)
[2019-02-18] MEDS: Immune Globulin 5 GM Premixed Solution 180 BAG IV (11:24)
== END ==
PROVIDERS: Family Provider Family Medicine; PCP Family Medicine; Referring Provider Internal Medicine Rheumatology; Visit Provider Internal Medicine Rheumatology
DX: M33.92 Dermatopolymyositis, unspecified with myopathy (principal)
CPT/HCPCS: 96365; 96366; J1568

== ENCOUNTER → 2019-02-19 07:55 | Outpatient (CLI) | payer MEDICARE, SELFPAY ==
[2019-01-08 08:35] VITALS: BMI 26.5
[2019-02-18 08:05] VITALS: BMI 26.5
[2019-02-19 08:06] VITALS: BP 132/80; PULSE 96; RESP 18; TEMP 36.4; O2SAT 98; BMI 26.5
[2019-02-19] MEDS: Immune Globulin 20 gm Premixed Solution 46 BAG IV (08:18)
[2019-02-19] MEDS: Immune Globulin 20 gm Premixed Solution 180 BAG IV (10:08)
[2019-02-19] MEDS: Immune Globulin 5 GM Premixed Solution 180 BAG IV (11:14)
== END ==
PROVIDERS: Family Provider Family Medicine; PCP Family Medicine; Referring Provider Internal Medicine Rheumatology; Visit Provider Internal Medicine Rheumatology
DX: M33.92 Dermatopolymyositis, unspecified with myopathy (principal)
CPT/HCPCS: 96365; 96366; A4216; J1568

== ENCOUNTER 2019-03-12 10:19 | Emergency (ER) | payer MEDICARE, SELFPAY ==
[2019-02-19 08:06] VITALS: BMI 26.5
[2019-03-12 10:20] VITALS: BP 183/105; PULSE 107; RESP 18; TEMP 36.6; O2SAT 96; BMI 26.4
--- NOTE | 2019-03-12 10:40 | ED.VIS.GEN ---
History of Present Illness Chief Complaint: Fall Informant: Patient Onset: Today Narrative: Patient states that she tripped over a curb falling forward. She drove her right shoulder into a piece of furniture. She notes some superficial abrasions to the bilateral hands. She is left-handed. She notes tenderness over the anterior right proximal humerus. Painful range of motion. She denies any leg symptoms. She denies any headache or neck pain. Past Medical History - Allergies and Home Meds Allergies/Adverse Reactions: Allergies No Known Allergies Allergy (Verified 03/12/19 10:22) Primary Care Physician: Catia Christian DO [Primary Care Provider] - Surgical History: noncontributory Smoking Status: Never smoker Review of Systems General: Denies: Chills, Fever, Sweats Eyes: Denies: Visual changes - bilaterally, Diplopia ENT: Denies: Rhinorrhea, Sore throat Cardiovascular: Denies: Chest pain, Palpitations Respiratory: Denies: Dyspnea, Cough, Dyspnea on exertion Gastrointestinal: Denies: Abdominal pain, Nausea, Vomiting, Diarrhea, Melena, Hematochezia Genitourinary: Denies: Dysuria, Hematuria, Frequency Musculoskeletal: Denies: Back pain, Extremity Pain Skin: Denies: Rash, Wounds Neurological: Denies: Headache, Weakness, Numbness Physical Exam Vital Signs/Narrative: Vital Signs Temp Pulse Resp BP Pulse Ox 03/12/19 10:20 97.9 F 107 H 18 183/105 H 96 Inital Vital Signs reviewed: Yes General: Well nourished, Well developed, No Acute Distress Head: Normocephalic, Atraumatic Eyes: Perrl, EOMI ENT: Moist mucous membranes, No rhinorrhea Neck: Supple, Nontender Cardiovascular: Regular rate, Regular rhythm, No murmurs Respiratory: No distress, CTA bilaterally, Chest nontender Abdomen: Soft, Nontender, Nondistended, Normal bowel sounds Back: Nontender, Normal Inspection Extremities: - - Tenderness palpation of the proximal anterior right shoulder. There is some mild swelling. There is no clavicular pain. No obvious dislocation. Neurovascular intact distal Skin: Normal color, Trauma - Superficial abrasions bilateral hands particularly right thenar eminence and left side of fingers. Full range of motion. Neurological: Alert, Oriented x3, Cranial nerves II-XII grossly intact, Normal Strength, Normal Sensation Psychological: Normal affect, Normal Mood Diagnostic/Tx/Re-eval - Medical Decision Making X-rays revealed a proximal humerus fracture. Patient was placed in a sling. She was given and will receive a prescription for oxycodone. She sees Dr. Pitts and she can follow-up with him. ED Disposition - Plan for ED Patient: Disposition: Home or Assisted Living Diagnosis: Closed fracture of right proximal humerus Instructions: FRACTURE, Shoulder Prescriptions: Oxycodone [Oxyir] 5 mg PO Q6H PRN PRN 3 Days #12 tab PRN Reason: Pain Prescription Printed Referrals: Bienvenido Pitts MD [STAFF PHYSICIAN] - (call to arrange follow up)
--- NOTE | 2019-03-12 11:02 | RAD_ITS ---
STUDY: X-RAY - RIGHT SHOULDER REASON FOR EXAM: Female, 83 years old. Pt fell and hit concrete wall with shoulder this morning; trouble moving shoulder TECHNIQUE: 4 view(s) of the shoulder. COMPARISON: None. FINDINGS: There is moderate degenerative arthrosis of the glenohumeral articulation. There is degenerative arthrosis of the acromioclavicular joint without inferior osseous spur formation. Normal acromion. Nondisplaced avulsion fracture of the greater tuberosity of the proximal humerus. There is periarticular soft tissue calcification consistent with a calcific tendinitis. Normal visualized pulmonary apex. RAD/Shoulder min 2 Views IMPRESSION: Nondisplaced avulsion fracture of the greater tuberosity of the proximal humerus. Calcific tendinitis. Electronically Signed: Jose Jackson, at 12:34 EST , Service support ,
[2019-03-12] MEDS: oxyCODONE 5 MG Tablet PO (12:53)
--- NOTE | 2019-03-12 13:00 | ED.RN ---
DISCHARGE INSTRUCTIONS GIVEN TO AND REVIEWED WITH PATIENT, PATIENT DENIES QUESTIONS OR CONCERNS AND VOICES UNDERSTANDING OF DISCHARGE INSTRUCTIONS. PT AMBULATES OUT OF ROOM WITHOUT DIFFICULTY.
== END 2019-03-12 13:01 | disposition home or self-care (01) ==
PROVIDERS: Emergency Provider Emergency Medicine; PCP Family Medicine
DX: S42.301A Unspecified fracture of shaft of humerus, right arm, initial encounter for closed fracture (principal); S60.512A Abrasion of left hand, initial encounter; S60.511A Abrasion of right hand, initial encounter; W18.09XA Striking against other object with subsequent fall, initial encounter; Y93.01 Activity, walking, marching and hiking; Y92.89 Other specified places as the place of occurrence of the external cause; Y99.8 Other external cause status
CPT/HCPCS: 73030; 99283

== ENCOUNTER → 2019-03-31 | Outpatient (CLI) | payer MEDICARE, SELFPAY ==
[2019-03-12 10:20] VITALS: BMI 26.4
[2019-03-31 15:07] LABS: Absolute Lymphocyte Count 1.28 X10^3/uL (0.83-4.51); Absolute Neutrophil Count 7.2 X10^3/uL (2.0-7.7); Basophil# 0.05 X10^3/uL; Basophil% 0.5 % (0-1); Eosinophil# 0.01 X10^3/uL; Eosinophils% 0.1 % (0-5); Hematocrit 38.5 % (37-47); Hemoglobin 12.6 g/dL (12.0-15.0); Lymphocyte # 1.28 X10^3/ul (4.0); Lymphocyte % 13.7 % (19-41); Mean Corp Hgb Conc 32.7 g/dL (32-36); Mean Corpuscular Hgb 30.6 pg (27.0-32.0); Mean Corpuscular Volume 93.4 fL (81-99); Mean Platelet Vol. 9.1 fl (6.2-12.0); Monocyte# 0.68 X10^3/uL; Monocyte% 7.3 % (0-10); NRBC Flagged by Analyzer 0 % (0-5); Neutrophil # 7.23 X10^3/uL (2.7-7.7); Neutrophil % 77.8 % (47-70); Platelet Count 377 K/mm3 (150-450); RBC Distribution Width CV 15.9 % (11.6-14.6); RBC Distribution Width SD 53.6 fl (35.1-43.9); Red Blood Count 4.12 M/mm3 (4.2-5.4); White Blood Count 9.3 K/mm3 (4.4-11.0)
[2019-03-31 15:24] LABS: ALB/GLOB Ratio 0.8 RATIO (0.9-2.4); AST(SGOT) 15 U/L (15-37); Alanine Aminotransfer ALT/SGPT 24 U/L (13-56); Albumin, Serum 3.7 g/dL (3.2-5.0); Alkaline Phosphatase 108 U/L (45-117); Anion Gap 9 (5-15); BUN 21 mg/dL (7-18); BUN/Creat Ratio 27.2 RATIO (10-20); CPK Total, Creatine Kinase 31 U/L (26-192); Calcium,Total 10.2 mg/dL (8.5-10.1); Chloride 105 mmol/L (98-107); Creatinine, Serum 0.77 mg/dL (0.55-1.02); EST Glomerular Filtration Rate 76 mL/min (>60); Est Glom Filt Rate - Afr Amer 92 mL/min (>60); Globulin 4.6 g/dL (2.2-4.2); Glucose 97 mg/dL (74-106); Protein, Total 8.3 g/dL (6.4-8.2); Sodium Level 139 mmol/L (136-145)
[2019-04-01 09:19] LABS: PTHIN 47.4 pg/mL (18.4-80.1)
== END | disposition home or self-care (01) ==
LOC: MTLAB 13:41
PROVIDERS: PCP Family Medicine; Referring Provider Internal Medicine Rheumatology; Visit Provider Internal Medicine Rheumatology
DX: M33.92 Dermatopolymyositis, unspecified with myopathy (principal); M15.9 Polyosteoarthritis, unspecified; M51.36 Other intervertebral disc degeneration, lumbar region; M81.0 Age-related osteoporosis without current pathological fracture; I10 Essential (primary) hypertension; E03.9 Hypothyroidism, unspecified; E21.1 Secondary hyperparathyroidism, not elsewhere classified; Z79.899 Other long term (current) drug therapy
CPT/HCPCS: 36415; 80053; 82550; 83970; 85025

== ENCOUNTER → 2019-04-01 | Outpatient (CLI) | payer MEDICARE, SELFPAY ==
[2019-02-18 08:05] VITALS: BMI 26.5
[2019-03-12 10:20] VITALS: BMI 26.4
[2019-04-01 07:58] VITALS: BP 151/83; PULSE 108; RESP 16; TEMP 36.4; O2SAT 97; BMI 26.5
[2019-04-01] MEDS: Immune Globulin 20 gm Premixed Solution 46 BAG IV (08:22)
[2019-04-01] MEDS: Immune Globulin 20 gm Premixed Solution 180 BAG IV (10:06)
[2019-04-01] MEDS: Immune Globulin 5 GM Premixed Solution 180 BAG IV (11:23)
== END | disposition home or self-care (01) ==
LOC: MEDOUTP 07:50
PROVIDERS: Family Provider Family Medicine; PCP Family Medicine; Referring Provider Internal Medicine Rheumatology; Visit Provider Internal Medicine Rheumatology
DX: M33.92 Dermatopolymyositis, unspecified with myopathy (principal)
CPT/HCPCS: 96365; 96366; A4216; J1568

== ENCOUNTER → 2019-04-02 07:53 | Outpatient (CLI) | payer MEDICARE, SELFPAY ==
[2019-02-18 08:05] VITALS: BMI 26.5
[2019-04-01 07:58] VITALS: BMI 26.5
[2019-04-02 07:57] VITALS: BP 156/81; PULSE 84; RESP 16; TEMP 36.1; O2SAT 97; BMI 26.5
[2019-04-02] MEDS: Immune Globulin 20 gm Premixed Solution 46 BAG IV (08:22)
[2019-04-02] MEDS: Immune Globulin 20 gm Premixed Solution 180 BAG IV (10:09)
[2019-04-02] MEDS: Immune Globulin 5 GM Premixed Solution 180 BAG IV (11:21)
== END ==
PROVIDERS: Family Provider Family Medicine; PCP Family Medicine; Referring Provider Internal Medicine Rheumatology; Visit Provider Internal Medicine Rheumatology
DX: M33.92 Dermatopolymyositis, unspecified with myopathy (principal)
CPT/HCPCS: 96365; 96366 ×2; A4216; J1568

== ENCOUNTER → 2019-05-20 | Outpatient (CLI) | payer MEDICARE, SELFPAY ==
[2019-04-01 07:58] VITALS: BMI 26.5
[2019-04-02 07:57] VITALS: BMI 26.5
[2019-05-20 07:56] VITALS: BP 129/98; PULSE 100; RESP 16; TEMP 36.7; O2SAT 96; BMI 27.1
[2019-05-20] MEDS: 0.9% NaCl Peripheral Flush Adult/Peds IV (08:16)
[2019-05-20] MEDS: Immune Globulin 20 gm Premixed Solution 46 BAG IV (08:37)
[2019-05-20] MEDS: Immune Globulin 20 gm Premixed Solution 180 BAG IV (10:33)
[2019-05-20] MEDS: Immune Globulin 5 GM Premixed Solution 180 BAG IV (11:51)
== END | disposition home or self-care (01) ==
LOC: MEDOUTP 07:49
PROVIDERS: PCP Family Medicine; Referring Provider Internal Medicine Rheumatology; Visit Provider Internal Medicine Rheumatology
DX: M33.92 Dermatopolymyositis, unspecified with myopathy (principal)
CPT/HCPCS: 96365; 96366; A4216; J1568

== ENCOUNTER → 2019-05-21 07:45 | Outpatient (CLI) | payer MEDICARE, SELFPAY ==
[2019-04-01 07:58] VITALS: BMI 26.5
[2019-05-20 07:56] VITALS: BMI 27.1
[2019-05-21 07:55] VITALS: BP 141/87; PULSE 90; RESP 18; TEMP 36.3; O2SAT 96; BMI 27.1
[2019-05-21] MEDS: Immune Globulin 20 gm Premixed Solution 46 BAG IV (08:09)
[2019-05-21] MEDS: Immune Globulin 20 gm Premixed Solution 180 BAG IV (09:54)
[2019-05-21] MEDS: Immune Globulin 5 GM Premixed Solution 180 BAG IV (11:09)
== END ==
PROVIDERS: PCP Family Medicine; Referring Provider Internal Medicine Rheumatology; Visit Provider Internal Medicine Rheumatology
DX: M33.92 Dermatopolymyositis, unspecified with myopathy (principal)
CPT/HCPCS: 96365; 96366; A4216; J1568

== ENCOUNTER → 2019-07-01 07:46 | Outpatient (CLI) | payer MEDICARE, SELFPAY ==
[2019-05-21 07:55] VITALS: BMI 27.1
[2019-07-01 10:01] LABS: Absolute Lymphocyte Count 1.53 X10^3/uL (0.83-4.51); Absolute Neutrophil Count 3.7 X10^3/uL (2.0-7.7); Basophil# 0.07 X10^3/uL; Basophil% 1.1 % (0-1); Eosinophil# 0.08 X10^3/uL; Eosinophils% 1.3 % (0-5); Hematocrit 40.6 % (37-47); Hemoglobin 13.2 g/dL (12.0-15.0); Lymphocyte # 1.53 X10^3/ul (4.0); Lymphocyte % 24.7 % (19-41); Mean Corp Hgb Conc 32.5 g/dL (32-36); Mean Corpuscular Hgb 29.9 pg (27.0-32.0); Mean Corpuscular Volume 92.1 fL (81-99); Mean Platelet Vol. 9.2 fl (6.2-12.0); Monocyte# 0.82 X10^3/uL; Monocyte% 13.2 % (0-10); NRBC Flagged by Analyzer 0 % (0-5); Neutrophil # 3.67 X10^3/uL (2.7-7.7); Neutrophil % 59.2 % (47-70); Platelet Count 332 K/mm3 (150-450); RBC Distribution Width SD 49.9 fl (35.1-43.9); Red Blood Count 4.41 M/mm3 (4.2-5.4); White Blood Count 6.2 K/mm3 (4.4-11.0)
[2019-07-01 10:11] LABS: PTHIN 83.4 pg/mL (18.4-80.1)
[2019-07-01 10:20] LABS: ALB/GLOB Ratio 0.8 RATIO (0.9-2.4); AST(SGOT) 19 U/L (15-37); Alanine Aminotransfer ALT/SGPT 23 U/L (13-56); Albumin, Serum 3.6 g/dL (3.2-5.0); Alkaline Phosphatase 84 U/L (45-117); Anion Gap 8 (5-15); BUN 14 mg/dL (7-18); BUN/Creat Ratio 20.4 RATIO (10-20); CPK Total, Creatine Kinase 33 U/L (26-192); Calcium,Total 9.8 mg/dL (8.5-10.1); Chloride 104 mmol/L (98-107); Cholesterol 185 mg/dL (200); Creatinine, Serum 0.69 mg/dL (0.55-1.02); EST Glomerular Filtration Rate 87 mL/min (>60); Est Glom Filt Rate - Afr Amer 105 mL/min (>60); Globulin 4.4 g/dL (2.2-4.2); Glucose 98 mg/dL (74-106); High Density Lipoprotein 44 mg/dL; Potassium 3.3 mmol/L (3.5-5.1); Sodium Level 139 mmol/L (136-145); Triglycerides 140 mg/dL; Very Low Density Lipoprotein 28 mg/dL (5-40)
== END ==
PROVIDERS: PCP Family Medicine; Referring Provider Internal Medicine Endocrinology, Diabetes & Metabolism; Visit Provider Internal Medicine Endocrinology, Diabetes & Metabolism
DX: M33.92 Dermatopolymyositis, unspecified with myopathy (principal); Z79.899 Other long term (current) drug therapy; M15.9 Polyosteoarthritis, unspecified; M51.36 Other intervertebral disc degeneration, lumbar region; M81.0 Age-related osteoporosis without current pathological fracture; I10 Essential (primary) hypertension; E03.9 Hypothyroidism, unspecified; E21.1 Secondary hyperparathyroidism, not elsewhere classified; E78.5 Hyperlipidemia, unspecified; E03.8 Other specified hypothyroidism
CPT/HCPCS: 36415; 80053; 80061; 82550; 83970; 85025

== ENCOUNTER → 2019-07-02 07:47 | Outpatient (CLI) | payer MEDICARE, SELFPAY ==
[2019-05-20 07:56] VITALS: BMI 27.1
[2019-05-21 07:55] VITALS: BMI 27.1
[2019-07-02 07:54] VITALS: BP 141/94; PULSE 97; RESP 18; TEMP 35.9; O2SAT 97; BMI 27.1
[2019-07-02] MEDS: Immune Globulin 20 gm Premixed Solution 45 BAG IV (08:09)
[2019-07-02] MEDS: Immune Globulin 20 gm Premixed Solution 180 BAG IV (10:00)
[2019-07-02] MEDS: Immune Globulin 5 GM Premixed Solution 180 BAG IV (11:17)
== END ==
PROVIDERS: PCP Family Medicine; Referring Provider Internal Medicine Rheumatology; Visit Provider Internal Medicine Rheumatology
DX: M33.92 Dermatopolymyositis, unspecified with myopathy (principal)
CPT/HCPCS: 96365; 96366 ×3; J1568

== ENCOUNTER → 2019-07-03 | Outpatient (CLI) | payer MEDICARE, SELFPAY ==
[2019-05-20 07:56] VITALS: BMI 27.1
[2019-07-02 07:54] VITALS: BMI 27.1
[2019-07-03 08:00] VITALS: BP 188/91; PULSE 102; RESP 16; TEMP 36.6; O2SAT 97; BMI 25.2
[2019-07-03] MEDS: Immune Globulin 20 gm Premixed Solution 46 BAG IV (08:07)
[2019-07-03 08:13] VITALS: BP 188/91; PULSE 102; RESP 16; TEMP 36.6; O2SAT 97; BMI 25.2
[2019-07-03] MEDS: Immune Globulin 20 gm Premixed Solution 180 BAG IV (10:05)
[2019-07-03] MEDS: Immune Globulin 5 GM Premixed Solution 180 BAG IV (11:19)
[2019-07-03 11:40] VITALS: BP 142/85
== END | disposition home or self-care (01) ==
LOC: MEDOUTP 07:54
PROVIDERS: PCP Family Medicine; Referring Provider Internal Medicine Rheumatology; Visit Provider Internal Medicine Rheumatology
DX: M33.92 Dermatopolymyositis, unspecified with myopathy (principal)
CPT/HCPCS: 96365; 96366; J1568

== ENCOUNTER → 2019-07-31 08:13 | Outpatient (CLI) | payer MEDICARE, SELFPAY ==
[2019-07-03 08:13] VITALS: BMI 25.2
[2019-07-31 08:23] VITALS: BP 153/87; PULSE 96; RESP 18; TEMP 36.2; O2SAT 99; BMI 26.5
[2019-07-31] MEDS: 0.9% NaCl Peripheral Flush Adult/Peds IV (08:31)
[2019-07-31] MEDS: Zoledronic Acid 5 MG 100 ML 300 MG IV (08:32)
== END ==
PROVIDERS: PCP Family Medicine; Referring Provider Internal Medicine Endocrinology, Diabetes & Metabolism; Visit Provider Internal Medicine Endocrinology, Diabetes & Metabolism
DX: M81.0 Age-related osteoporosis without current pathological fracture (principal)
CPT/HCPCS: 96365; A4216; J3489

== ENCOUNTER → 2019-08-13 | Outpatient (CLI) | payer MEDICARE, SELFPAY ==
[2019-05-21 07:55] VITALS: BMI 27.1
[2019-07-31 08:23] VITALS: BMI 26.5
[2019-08-13 08:25] VITALS: BP 159/91; PULSE 102; RESP 16; TEMP 36.6; O2SAT 98; BMI 26.9
[2019-08-13] MEDS: Immune Globulin 20 gm Premixed Solution 46 BAG IV (08:25)
[2019-08-13] MEDS: 0.9% NaCl Peripheral Flush Adult/Peds IV (08:32)
[2019-08-13] MEDS: Immune Globulin 20 gm Premixed Solution 180 BAG IV (10:21)
[2019-08-13] MEDS: Immune Globulin 5 GM Premixed Solution 180 BAG IV (11:45)
[2019-08-13 12:18] VITALS: BP 141/80; PULSE 75; RESP 16; TEMP 35.9; O2SAT 98
== END | disposition home or self-care (01) ==
LOC: MEDOUTP 07:52
PROVIDERS: PCP Family Medicine; Referring Provider Internal Medicine Rheumatology; Visit Provider Internal Medicine Rheumatology
DX: M33.92 Dermatopolymyositis, unspecified with myopathy (principal)
CPT/HCPCS: 96365; 96366; A4216; J1568

== ENCOUNTER → 2019-08-14 | Outpatient (CLI) | payer MEDICARE, SELFPAY ==
[2019-05-21 07:55] VITALS: BMI 27.1
[2019-08-13 08:25] VITALS: BMI 26.9
[2019-08-14 08:01] VITALS: BP 154/80; PULSE 96; RESP 16; TEMP 37.1; O2SAT 99; BMI 26.9
[2019-08-14] MEDS: Immune Globulin 20 gm Premixed Solution 46 BAG IV (08:16)
[2019-08-14] MEDS: Immune Globulin 20 gm Premixed Solution 180 BAG IV (10:17)
[2019-08-14] MEDS: Immune Globulin 5 GM Premixed Solution 180 BAG IV (11:33)
== END | disposition home or self-care (01) ==
LOC: MEDOUTP 07:54
PROVIDERS: PCP Family Medicine; Referring Provider Internal Medicine Rheumatology; Visit Provider Internal Medicine Rheumatology
DX: M33.92 Dermatopolymyositis, unspecified with myopathy (principal)
CPT/HCPCS: 96365; 96366; A4216; J1568

== ENCOUNTER → 2019-09-16 07:51 | Outpatient (CLI) | payer MEDICARE, SELFPAY ==
[2019-08-14 08:01] VITALS: BMI 26.9
--- NOTE | 2019-09-16 08:00 | BI_ITS ---
MAMMOGRAPHY - BILATERAL SCREENING REASON FOR EXAM: Female, 84 years old. Routine annual screening examination. PERTINENT HISTORY: Sr. With breast cancer. Remote left stereotactic breast biopsy and left excisional breast biopsy. The patient has a history of dermatomyositis. TECHNIQUE: Digital bilateral breast rj (3D mammographic acquisition) in the CC and MLO projections. 2-D mediolateral oblique (MLO) and craniocaudad (CC) views of both breasts were obtained. CAD: Full Field Digital Mammography with Computer Added Detection was performed. COMPARISON: Comparison is made with prior study dated 07/15/2018 and 10/04/2017. FINDINGS: Breast Composition: The breasts are almost entirely fatty. There are no dominant masses or suspicious calcifications. Stable scattered calcifications most likely secondary to the patient''s history of dermatomyositis. No other significant abnormalities are identified. There has been no significant change since the prior study. BI/SCREEN MAMM (CAD) W/RJ BILAT IMPRESSION: Stable bilateral screening mammogram. Yearly follow-up mammogram recommended. (A) ASSESSMENT CATEGORY: BIRADS Category 2: Benign. A letter regarding these results will be sent to the patient by the facility within 30 days. Approximately 10% of breast cancers are not detected by mammography. A normal mammogram should not delay biopsy of a clinically suspicious abnormality. [id number] Electronically Signed: Jose Jackson, at 9:07 EDT , Service support ,
== END ==
PROVIDERS: PCP Family Medicine; Referring Provider Family Medicine; Visit Provider Family Medicine
DX: Z12.31 Encounter for screening mammogram for malignant neoplasm of breast (principal)
CPT/HCPCS: 77063; 77067

== ENCOUNTER → 2019-09-24 | Outpatient (CLI) | payer MEDICARE, SELFPAY ==
[2019-07-31 08:23] VITALS: BMI 26.5
[2019-08-14 08:01] VITALS: BMI 26.9
[2019-09-24 08:04] VITALS: BP 154/98; PULSE 97; RESP 16; TEMP 36.7; O2SAT 99; BMI 26.9
[2019-09-24] MEDS: Immune Globulin 20 gm Premixed Solution 46 BAG IV (08:20)
[2019-09-24] MEDS: Immune Globulin 20 gm Premixed Solution 138 BAG IV (10:20)
[2019-09-24] MEDS: Immune Globulin 5 GM Premixed Solution 138 BAG IV (12:09)
== END | disposition home or self-care (01) ==
LOC: MEDOUTP 07:57
PROVIDERS: PCP Family Medicine; Referring Provider Internal Medicine Rheumatology; Visit Provider Internal Medicine Rheumatology
DX: M33.92 Dermatopolymyositis, unspecified with myopathy (principal)
CPT/HCPCS: 96365; 96366; A4216; J1568

== ENCOUNTER → 2019-09-25 | Outpatient (CLI) | payer MEDICARE, SELFPAY ==
[2019-07-31 08:23] VITALS: BMI 26.5
[2019-09-24 08:04] VITALS: BMI 26.9
[2019-09-25 08:10] VITALS: BP 158/89; PULSE 93; RESP 18; TEMP 36.7; O2SAT 97; BMI 26.9
[2019-09-25] MEDS: Immune Globulin 20 gm Premixed Solution 46 BAG IV (08:24)
[2019-09-25] MEDS: Immune Globulin 20 gm Premixed Solution 180 BAG IV (10:19)
[2019-09-25] MEDS: Immune Globulin 5 GM Premixed Solution 180 BAG IV (11:37)
== END | disposition home or self-care (01) ==
LOC: MEDOUTP 08:02
PROVIDERS: PCP Family Medicine; Referring Provider Internal Medicine Rheumatology; Visit Provider Internal Medicine Rheumatology
DX: M33.92 Dermatopolymyositis, unspecified with myopathy (principal)
CPT/HCPCS: 96365; 96366; A4216; J1568

== ENCOUNTER → 2019-10-01 07:39 | Outpatient (CLI) | payer MEDICARE, SELFPAY ==
[2019-09-25 08:10] VITALS: BMI 26.9
[2019-10-01 10:00] LABS: Absolute Lymphocyte Count 1.32 X10^3/uL (0.83-4.51); Absolute Neutrophil Count 2.8 X10^3/uL (2.0-7.7); Basophil# 0.04 X10^3/uL; Basophil% 0.8 % (0-1); Eosinophil# 0.02 X10^3/uL; Eosinophils% 0.4 % (0-5); Hematocrit 37.5 % (37-47); Hemoglobin 12.8 g/dL (12.0-15.0); Lymphocyte # 1.32 X10^3/ul (4.0); Lymphocyte % 26.9 % (19-41); Mean Corp Hgb Conc 34.1 g/dL (32-36); Mean Corpuscular Hgb 30.7 pg (27.0-32.0); Mean Corpuscular Volume 89.9 fL (81-99); Mean Platelet Vol. 9.4 fl (6.2-12.0); Monocyte# 0.69 X10^3/uL; Monocyte% 14.1 % (0-10); NRBC Flagged by Analyzer 0 % (0-5); Neutrophil # 2.82 X10^3/uL (2.7-7.7); Neutrophil % 57.6 % (47-70); Platelet Count 293 K/mm3 (150-450); RBC Distribution Width CV 15.6 % (11.6-14.6); RBC Distribution Width SD 50.4 fl (35.1-43.9); Red Blood Count 4.17 M/mm3 (4.2-5.4); White Blood Count 4.9 K/mm3 (4.4-11.0)
[2019-10-01 10:16] LABS: PTHIN 60.2 pg/mL (18.4-80.1)
[2019-10-01 10:18] LABS: ALB/GLOB Ratio 0.7 RATIO (0.9-2.4); AST(SGOT) 23 U/L (15-37); Alanine Aminotransfer ALT/SGPT 31 U/L (13-56); Albumin, Serum 3.7 g/dL (3.2-5.0); Alkaline Phosphatase 69 U/L (45-117); Anion Gap 7 (5-15); BUN 12 mg/dL (7-18); BUN/Creat Ratio 17.1 RATIO (10-20); CPK Total, Creatine Kinase 37 U/L (26-192); Calcium,Total 9.6 mg/dL (8.5-10.1); Chloride 105 mmol/L (98-107); EST Glomerular Filtration Rate 85 mL/min (>60); Est Glom Filt Rate - Afr Amer 102 mL/min (>60); Globulin 5.6 g/dL (2.2-4.2); Glucose 109 mg/dL (74-106); Potassium 3.2 mmol/L (3.5-5.1); Protein, Total 9.3 g/dL (6.4-8.2); Sodium Level 139 mmol/L (136-145)
== END ==
PROVIDERS: PCP Family Medicine; Referring Provider Internal Medicine Rheumatology; Visit Provider Internal Medicine Rheumatology
DX: M33.92 Dermatopolymyositis, unspecified with myopathy (principal); E21.1 Secondary hyperparathyroidism, not elsewhere classified; Z79.899 Other long term (current) drug therapy; M15.9 Polyosteoarthritis, unspecified; M51.36 Other intervertebral disc degeneration, lumbar region; M81.0 Age-related osteoporosis without current pathological fracture; I10 Essential (primary) hypertension; E03.9 Hypothyroidism, unspecified
CPT/HCPCS: 36415; 80053; 82550; 83970; 85025

== ENCOUNTER → 2019-10-21 | Outpatient (CLI) | payer MEDICARE, SELFPAY ==
[2019-09-25 08:10] VITALS: BMI 26.9
[2019-10-21 10:32] LABS: Anion Gap 4 (5-15); BUN 12 mg/dL (7-18); Calcium,Total 9.4 mg/dL (8.5-10.1); Chloride 106 mmol/L (98-107); Creatinine, Serum 0.63 mg/dL (0.55-1.02); EST Glomerular Filtration Rate 96 mL/min (>60); Est Glom Filt Rate - Afr Amer 116 mL/min (>60); Glucose 93 mg/dL (74-106); Potassium 3.3 mmol/L (3.5-5.1); Sodium Level 137 mmol/L (136-145)
== END | disposition home or self-care (01) ==
LOC: MTLAB 07:28
PROVIDERS: PCP Family Medicine; Referring Provider Family Medicine; Visit Provider Family Medicine
DX: E87.6 Hypokalemia (principal)
CPT/HCPCS: 36415; 80048

== ENCOUNTER → 2019-11-05 | Outpatient (CLI) | payer MEDICARE, SELFPAY ==
[2019-08-14 08:01] VITALS: BMI 26.9
[2019-09-25 08:10] VITALS: BMI 26.9
[2019-11-05] MEDS: Immune Globulin 20 gm Premixed Solution 46 BAG IV (08:19)
[2019-11-05 08:27] VITALS: BP 149/89; PULSE 101; RESP 16; TEMP 35.8; O2SAT 96; BMI 26.9
[2019-11-05] MEDS: Immune Globulin 20 gm Premixed Solution 180 BAG IV (10:20)
[2019-11-05] MEDS: Immune Globulin 5 GM Premixed Solution 180 BAG IV (11:28)
== END | disposition home or self-care (01) ==
LOC: MEDOUTP 07:50
PROVIDERS: PCP Family Medicine; Referring Provider Internal Medicine Rheumatology; Visit Provider Internal Medicine Rheumatology
DX: M33.92 Dermatopolymyositis, unspecified with myopathy (principal)
CPT/HCPCS: 96365; 96366; A4216; J1568

== ENCOUNTER → 2019-11-06 | Outpatient (CLI) | payer MEDICARE, SELFPAY ==
[2019-08-14 08:01] VITALS: BMI 26.9
[2019-11-05 08:27] VITALS: BMI 26.9
[2019-11-06] MEDS: Immune Globulin 20 gm Premixed Solution 46 BAG IV (08:15)
[2019-11-06 08:19] VITALS: BP 174/86; PULSE 92; RESP 16; TEMP 36.8; O2SAT 96; BMI 25.2
[2019-11-06] MEDS: Immune Globulin 20 gm Premixed Solution 180 BAG IV (10:11)
[2019-11-06] MEDS: Immune Globulin 5 GM Premixed Solution 180 BAG IV (11:26)
== END | disposition home or self-care (01) ==
LOC: MEDOUTP 07:53
PROVIDERS: PCP Family Medicine; Referring Provider Internal Medicine Rheumatology; Visit Provider Internal Medicine Rheumatology
DX: M33.92 Dermatopolymyositis, unspecified with myopathy (principal)
CPT/HCPCS: 96365; 96366; A4216; J1568

== ENCOUNTER → 2019-12-17 07:54 | Outpatient (CLI) | payer MEDICARE, SELFPAY ==
[2019-09-25 08:10] VITALS: BMI 26.9
[2019-11-06 08:19] VITALS: BMI 25.2
[2019-12-17] MEDS: DiphenhydrAMINE 25 MG Capsule PO (07:30)
[2019-12-17] MEDS: Acetaminophen 325 MG Tablet 650 MG PO (07:30)
[2019-12-17] MEDS: Immune Globulin 20 gm Premixed Solution 46 BAG IV (08:25)
[2019-12-17] MEDS: 0.9% NaCl Peripheral Flush Adult/Peds IV (08:30)
[2019-12-17 08:34] VITALS: BP 142/77; PULSE 97; RESP 16; TEMP 36.2; O2SAT 97; BMI 26.9
[2019-12-17] MEDS: Immune Globulin 20 gm Premixed Solution 180 BAG IV (10:27)
[2019-12-17] MEDS: Immune Globulin 5 GM Premixed Solution 180 BAG IV (11:45)
[2019-12-17 12:15] VITALS: BP 156/82; PULSE 86; RESP 16; TEMP 36.4
== END ==
PROVIDERS: PCP Family Medicine; Referring Provider Internal Medicine Rheumatology; Visit Provider Internal Medicine Rheumatology
DX: M33.92 Dermatopolymyositis, unspecified with myopathy (principal)
CPT/HCPCS: 96365; 96366; A4216; J1568

== ENCOUNTER → 2019-12-18 07:52 | Outpatient (CLI) | payer MEDICARE, SELFPAY ==
[2019-09-25 08:10] VITALS: BMI 26.9
[2019-12-17 08:34] VITALS: BMI 26.9
[2019-12-18 08:00] VITALS: BP 158/91; PULSE 96; RESP 16; TEMP 36.4; O2SAT 98; BMI 26.9
[2019-12-18] MEDS: 0.9% NaCl Peripheral Flush Adult/Peds IV (08:09)
[2019-12-18] MEDS: Immune Globulin 20 gm Premixed Solution 46 BAG IV (08:15)
[2019-12-18] MEDS: Immune Globulin 20 gm Premixed Solution 180 BAG IV (10:18)
[2019-12-18] MEDS: Immune Globulin 5 GM Premixed Solution 180 BAG IV (11:32)
== END ==
PROVIDERS: PCP Family Medicine; Referring Provider Internal Medicine Rheumatology; Visit Provider Internal Medicine Rheumatology
DX: M33.92 Dermatopolymyositis, unspecified with myopathy (principal)
CPT/HCPCS: 96365; 96366; A4216; J1568

== ENCOUNTER → 2020-02-02 07:51 | Outpatient (CLI) | payer MEDICARE, SELFPAY ==
[2019-11-06 08:19] VITALS: BMI 25.2
[2019-12-18 08:00] VITALS: BMI 26.9
[2020-02-02 08:00] VITALS: BP 158/91; PULSE 95; RESP 16; TEMP 36.2; O2SAT 96; BMI 27.1
[2020-02-02] MEDS: Immune Globulin 20 gm Premixed Solution 46 BAG IV (08:08)
[2020-02-02] MEDS: Immune Globulin 20 gm Premixed Solution 180 BAG IV (10:21)
[2020-02-02] MEDS: Immune Globulin 5 GM Premixed Solution 180 BAG IV (11:31)
== END ==
PROVIDERS: PCP Family Medicine; Referring Provider Internal Medicine Rheumatology; Visit Provider Internal Medicine Rheumatology
DX: M33.92 Dermatopolymyositis, unspecified with myopathy (principal)
CPT/HCPCS: 96365; 96366; A4216; J1568

== ENCOUNTER → 2020-02-03 07:54 | Outpatient (CLI) | payer MEDICARE, SELFPAY ==
[2019-11-06 08:19] VITALS: BMI 25.2
[2020-02-02 08:00] VITALS: BMI 27.1
[2020-02-03 08:09] VITALS: BP 154/91; PULSE 73; RESP 16; TEMP 35.9; O2SAT 98
[2020-02-03] MEDS: Immune Globulin 20 gm Premixed Solution 46 BAG IV (08:16)
[2020-02-03] MEDS: Immune Globulin 20 gm Premixed Solution 180 BAG IV (10:05)
[2020-02-03] MEDS: Immune Globulin 5 GM Premixed Solution 180 BAG IV (11:22)
== END ==
PROVIDERS: PCP Family Medicine; Referring Provider Internal Medicine Rheumatology; Visit Provider Internal Medicine Rheumatology
DX: M33.92 Dermatopolymyositis, unspecified with myopathy (principal)
CPT/HCPCS: 96365; 96366; A4216; J1568

== ENCOUNTER → 2020-02-09 08:34 | Outpatient (CLI) | payer MEDICARE, SELFPAY ==
[2020-02-02 08:00] VITALS: BMI 27.1
[2020-02-09 10:11] LABS: Absolute Lymphocyte Count 1.52 X10^3/uL (0.83-4.51); Absolute Neutrophil Count 3.3 X10^3/uL (2.0-7.7); Basophil# 0.07 X10^3/uL; Basophil% 1.2 % (0-1); Eosinophils% 1.7 % (0-5); Hematocrit 39.6 % (37-47); Hemoglobin 13.1 g/dL (12.0-15.0); Lymphocyte # 1.52 X10^3/ul (4.0); Lymphocyte % 26.5 % (19-41); Mean Corp Hgb Conc 33.1 g/dL (32-36); Mean Corpuscular Hgb 29.4 pg (27.0-32.0); Mean Platelet Vol. 9.5 fl (6.2-12.0); Monocyte# 0.68 X10^3/uL; Monocyte% 11.9 % (0-10); NRBC Flagged by Analyzer 0 % (0-5); Neutrophil # 3.33 X10^3/uL (2.7-7.7); Neutrophil % 58.2 % (47-70); Platelet Count 304 K/mm3 (150-450); RBC Distribution Width CV 15.5 % (11.6-14.6); RBC Distribution Width SD 50.1 fl (35.1-43.9); Red Blood Count 4.45 M/mm3 (4.2-5.4); White Blood Count 5.7 K/mm3 (4.4-11.0)
[2020-02-09 10:26] LABS: ALB/GLOB Ratio 0.7 RATIO (0.9-2.4); AST(SGOT) 24 U/L (15-37); Alanine Aminotransfer ALT/SGPT 33 U/L (13-56); Albumin, Serum 3.8 g/dL (3.2-5.0); Alkaline Phosphatase 78 U/L (45-117); Anion Gap 8 (5-15); BUN 13 mg/dL (7-18); BUN/Creat Ratio 18.3 RATIO (10-20); CPK Total, Creatine Kinase 38 U/L (26-192); Calcium,Total 9.5 mg/dL (8.5-10.1); Chloride 104 mmol/L (98-107); Creatinine, Serum 0.71 mg/dL (0.55-1.02); EST Glomerular Filtration Rate 84 mL/min (>60); Est Glom Filt Rate - Afr Amer 101 mL/min (>60); Globulin 5.2 g/dL (2.2-4.2); Glucose 101 mg/dL (74-106); Potassium 3.2 mmol/L (3.5-5.1); Sodium Level 139 mmol/L (136-145)
== END ==
PROVIDERS: PCP Family Medicine; Referring Provider Internal Medicine Rheumatology; Visit Provider Internal Medicine Rheumatology
DX: M33.92 Dermatopolymyositis, unspecified with myopathy (principal); M15.9 Polyosteoarthritis, unspecified; M51.36 Other intervertebral disc degeneration, lumbar region; M81.0 Age-related osteoporosis without current pathological fracture; I10 Essential (primary) hypertension; E03.9 Hypothyroidism, unspecified; E21.1 Secondary hyperparathyroidism, not elsewhere classified; Z79.899 Other long term (current) drug therapy
CPT/HCPCS: 36415; 80053; 82550; 85025

== ENCOUNTER 2020-02-26 10:00 | Outpatient (RCR) | payer MEDICARE, SELFPAY ==
[2020-02-02 08:00] VITALS: BMI 27.1
== END 2020-02-26 23:59 ==
LOC: IMMUN 10:00
PROVIDERS: PCP Family Medicine; Visit Provider Family Medicine
DX: Z23 Encounter for immunization (principal)
CPT/HCPCS: 0011A; 0012A; 91301

== ENCOUNTER → 2020-03-17 07:46 | Outpatient (CLI) | payer MEDICARE, SELFPAY ==
[2019-12-18 08:00] VITALS: BMI 26.9
[2020-02-02 08:00] VITALS: BMI 27.1
[2020-03-17 08:00] VITALS: BP 154/86; PULSE 99; RESP 16; TEMP 36.2; O2SAT 97
[2020-03-17] MEDS: Immune Globulin 20 gm Premixed Solution 45.5 BAG IV (08:08)
[2020-03-17] MEDS: Immune Globulin 20 gm Premixed Solution 180 BAG IV ×2 (10:09→11:23)
== END ==
PROVIDERS: PCP Family Medicine; Referring Provider Internal Medicine Rheumatology; Visit Provider Internal Medicine Rheumatology
DX: M33.92 Dermatopolymyositis, unspecified with myopathy (principal)
CPT/HCPCS: 96365; 96366; J1568

== ENCOUNTER → 2020-03-18 07:51 | Outpatient (CLI) | payer MEDICARE, SELFPAY ==
[2019-12-18 08:00] VITALS: BMI 26.9
[2020-02-02 08:00] VITALS: BMI 27.1
[2020-03-18] MEDS: 0.9% NaCl Peripheral Flush Adult/Peds IV (08:03)
[2020-03-18] MEDS: Immune Globulin 20 gm Premixed Solution 45.5 BAG IV (08:04)
[2020-03-18 08:09] VITALS: BP 121/96; PULSE 104; RESP 16; TEMP 36.4; O2SAT 99; BMI 26.9
[2020-03-18] MEDS: Immune Globulin 20 gm Premixed Solution 180 BAG IV ×2 (10:06→11:27)
[2020-03-18 12:00] VITALS: BP 159/90; PULSE 96; RESP 16; TEMP 36.5; O2SAT 97
== END ==
PROVIDERS: PCP Family Medicine; Referring Provider Internal Medicine Rheumatology; Visit Provider Internal Medicine Rheumatology
DX: M33.92 Dermatopolymyositis, unspecified with myopathy (principal)
CPT/HCPCS: 96365; 96366; A4216; J1568

== ENCOUNTER → 2020-04-01 07:30 | Outpatient (CLI) | payer MEDICARE, SELFPAY ==
[2020-03-18 08:09] VITALS: BMI 26.9
[2020-04-01 10:38] LABS: PTHIN 57.2 pg/mL (18.4-80.1)
[2020-04-01 10:42] LABS: Vitamin D,25 Hydroxy 59.5 ng/mL
[2020-04-01 10:47] LABS: ALB/GLOB Ratio 0.7 RATIO (0.9-2.4); AST(SGOT) 24 U/L (15-37); Alanine Aminotransfer ALT/SGPT 39 U/L (13-56); Albumin, Serum 3.5 g/dL (3.2-5.0); Alkaline Phosphatase 74 U/L (45-117); Anion Gap 8 (5-15); BUN 14 mg/dL (7-18); BUN/Creat Ratio 16.3 RATIO (10-20); Calcium,Total 9.2 mg/dL (8.5-10.1); Chloride 103 mmol/L (98-107); Creatinine, Serum 0.86 mg/dL (0.55-1.02); EST Glomerular Filtration Rate 67 mL/min (>60); Est Glom Filt Rate - Afr Amer 81 mL/min (>60); Globulin 4.8 g/dL (2.2-4.2); Glucose 141 mg/dL (74-106); Potassium 3.3 mmol/L (3.5-5.1); Protein, Total 8.3 g/dL (6.4-8.2); Sodium Level 136 mmol/L (136-145); Thyroid Stim Hormone (TSH) 3.44 uIU/mL (0.358-3.74)
== END ==
PROVIDERS: PCP Family Medicine; Referring Provider Internal Medicine Endocrinology, Diabetes & Metabolism; Visit Provider Internal Medicine Endocrinology, Diabetes & Metabolism
DX: E03.8 Other specified hypothyroidism (principal); E21.1 Secondary hyperparathyroidism, not elsewhere classified; E55.9 Vitamin D deficiency, unspecified
CPT/HCPCS: 36415; 80053; 82306; 83970; 84443

== ENCOUNTER → 2020-04-14 07:54 | Outpatient (CLI) | payer MEDICARE, SELFPAY ==
[2020-03-18 08:09] VITALS: BMI 26.9
[2020-04-14 10:25] LABS: Absolute Lymphocyte Count 1.66 X10^3/uL (0.83-4.51); Absolute Neutrophil Count 3.5 X10^3/uL (2.0-7.7); Basophil# 0.06 X10^3/uL; Eosinophils% 1.7 % (0-5); Hematocrit 40.2 % (37-47); Hemoglobin 13.1 g/dL (12.0-15.0); Lymphocyte # 1.66 X10^3/ul (4.0); Lymphocyte % 27.5 % (19-41); Mean Corp Hgb Conc 32.6 g/dL (32-36); Mean Corpuscular Hgb 29.6 pg (27.0-32.0); Mean Corpuscular Volume 90.7 fL (81-99); Mean Platelet Vol. 9.4 fl (6.2-12.0); Monocyte# 0.72 X10^3/uL; Monocyte% 11.9 % (0-10); NRBC Flagged by Analyzer 0 % (0-5); Neutrophil # 3.47 X10^3/uL (2.7-7.7); Neutrophil % 57.6 % (47-70); Platelet Count 339 K/mm3 (150-450); RBC Distribution Width CV 17.1 % (11.6-14.6); RBC Distribution Width SD 55.7 fl (35.1-43.9); Red Blood Count 4.43 M/mm3 (4.2-5.4)
[2020-04-14 10:50] LABS: ALB/GLOB Ratio 0.8 RATIO (0.9-2.4); AST(SGOT) 19 U/L (15-37); Alanine Aminotransfer ALT/SGPT 25 U/L (13-56); Albumin, Serum 3.6 g/dL (3.2-5.0); Alkaline Phosphatase 90 U/L (45-117); Anion Gap 9 (5-15); BUN 10 mg/dL (7-18); BUN/Creat Ratio 14.7 RATIO (10-20); CPK Total, Creatine Kinase 34 U/L (26-192); Calcium,Total 9.4 mg/dL (8.5-10.1); Chloride 105 mmol/L (98-107); Creatinine, Serum 0.68 mg/dL (0.55-1.02); EST Glomerular Filtration Rate 87 mL/min (>60); Est Glom Filt Rate - Afr Amer 106 mL/min (>60); Globulin 4.7 g/dL (2.2-4.2); Glucose 104 mg/dL (74-106); Potassium 3.3 mmol/L (3.5-5.1); Protein, Total 8.3 g/dL (6.4-8.2); Sodium Level 140 mmol/L (136-145)
== END ==
PROVIDERS: PCP Family Medicine; Referring Provider Internal Medicine Rheumatology; Visit Provider Internal Medicine Rheumatology
DX: M33.92 Dermatopolymyositis, unspecified with myopathy (principal); M15.9 Polyosteoarthritis, unspecified; M51.36 Other intervertebral disc degeneration, lumbar region; M81.0 Age-related osteoporosis without current pathological fracture; I10 Essential (primary) hypertension; E03.9 Hypothyroidism, unspecified; E21.1 Secondary hyperparathyroidism, not elsewhere classified; Z79.899 Other long term (current) drug therapy
CPT/HCPCS: 36415; 80053; 82550; 85025

== ENCOUNTER → 2020-04-27 07:48 | Outpatient (CLI) | payer MEDICARE, SELFPAY ==
[2020-02-02 08:00] VITALS: BMI 27.1
[2020-03-18 08:09] VITALS: BMI 26.9
[2020-04-27 08:03] VITALS: BP 144/83; PULSE 95; RESP 16; TEMP 35.9; O2SAT 97; BMI 27.1
[2020-04-27] MEDS: 0.9% NaCl Peripheral Flush Adult/Peds IV (08:05)
[2020-04-27] MEDS: Immune Globulin 20 gm Premixed Solution 46 BAG IV (08:21)
[2020-04-27] MEDS: Immune Globulin 20 gm Premixed Solution 180 BAG IV (10:18)
[2020-04-27] MEDS: Immune Globulin 5 GM Premixed Solution 180 BAG IV (11:31)
== END ==
PROVIDERS: PCP Family Medicine; Referring Provider Internal Medicine Rheumatology; Visit Provider Internal Medicine Rheumatology
DX: M33.92 Dermatopolymyositis, unspecified with myopathy (principal)
CPT/HCPCS: 96365; 96366; A4216; J1568

== ENCOUNTER 2020-04-28 07:52 | Outpatient (CLI) | payer MEDICARE, SELFPAY ==
[2020-02-02 08:00] VITALS: BMI 27.1
[2020-04-27 08:03] VITALS: BMI 27.1
[2020-04-28 08:00] VITALS: BP 158/84; PULSE 97; RESP 16; TEMP 37.1; O2SAT 95; BMI 27.8
[2020-04-28] MEDS: Immune Globulin 20 gm Premixed Solution 46 BAG IV (08:08)
[2020-04-28] MEDS: 0.9% NaCl Peripheral Flush Adult/Peds IV (08:13)
[2020-04-28] MEDS: Immune Globulin 20 gm Premixed Solution 180 BAG IV (10:00)
[2020-04-28] MEDS: Immune Globulin 5 GM Premixed Solution 180 BAG IV (11:15)
== END 2020-04-28 13:00 | disposition home or self-care (01) ==
LOC: MEDOUTP 07:52
PROVIDERS: PCP Family Medicine; Referring Provider Internal Medicine Rheumatology; Visit Provider Internal Medicine Rheumatology
DX: M33.92 Dermatopolymyositis, unspecified with myopathy (principal)
CPT/HCPCS: 96365; 96366; A4216; J1568

== ENCOUNTER → 2020-06-15 07:50 | Outpatient (CLI) | payer MEDICARE, SELFPAY ==
[2020-03-18 08:09] VITALS: BMI 26.9
[2020-06-15 07:59] VITALS: BP 151/81; PULSE 100; RESP 16; TEMP 36.4; O2SAT 98; BMI 27.1
[2020-06-15] MEDS: Immune Globulin 20 gm Premixed Solution 43 BAG IV (08:14)
[2020-06-15] MEDS: Immune Globulin 20 gm Premixed Solution 151 BAG IV (10:13)
[2020-06-15] MEDS: Immune Globulin 5 GM Premixed Solution 180 BAG IV (11:38)
[2020-06-15 12:06] VITALS: BP 142/65; PULSE 78
== END ==
PROVIDERS: PCP Family Medicine; Referring Provider Internal Medicine Rheumatology; Visit Provider Internal Medicine Rheumatology
DX: M33.92 Dermatopolymyositis, unspecified with myopathy (principal)
CPT/HCPCS: 96365; 96366; A4216; J1568

== ENCOUNTER → 2020-06-16 07:50 | Outpatient (CLI) | payer MEDICARE, SELFPAY ==
[2020-03-18 08:09] VITALS: BMI 26.9
[2020-06-15 07:59] VITALS: BMI 27.1
[2020-06-16 08:01] VITALS: BP 155/95; PULSE 87; RESP 16; TEMP 36.5; O2SAT 97; BMI 27.1
[2020-06-16] MEDS: 0.9% NaCl Peripheral Flush Adult/Peds IV (08:15)
[2020-06-16] MEDS: Immune Globulin 20 gm Premixed Solution 43 BAG IV (08:18)
[2020-06-16] MEDS: Immune Globulin 20 gm Premixed Solution 180 BAG IV (10:15)
[2020-06-16] MEDS: Immune Globulin 5 GM Premixed Solution 43 BAG IV (11:26)
[2020-06-16 11:52] VITALS: BP 144/85; PULSE 73; RESP 16; TEMP 36.4; O2SAT 98
== END ==
PROVIDERS: PCP Family Medicine; Referring Provider Internal Medicine Rheumatology; Visit Provider Internal Medicine Rheumatology
DX: M33.92 Dermatopolymyositis, unspecified with myopathy (principal)
CPT/HCPCS: 96365; 96366; A4216; J1568

== ENCOUNTER → 2020-06-25 07:35 | Outpatient (CLI) | payer MEDICARE, SELFPAY ==
[2020-06-16 08:01] VITALS: BMI 27.1
[2020-06-25 10:14] LABS: Absolute Lymphocyte Count 1.66 X10^3/uL (0.83-4.51); Absolute Neutrophil Count 3.2 X10^3/uL (2.0-7.7); Basophil# 0.06 X10^3/uL; Eosinophils% 1.7 % (0-5); Hematocrit 40.4 % (37-47); Hemoglobin 13.2 g/dL (12.0-15.0); Lymphocyte # 1.66 X10^3/ul (0.83-4.51); Lymphocyte % 27.4 % (19-41); Mean Corp Hgb Conc 32.7 g/dL (32-36); Mean Corpuscular Hgb 29.2 pg (27.0-32.0); Mean Corpuscular Volume 89.4 fL (81-99); Mean Platelet Vol. 9.7 fl (6.2-12.0); Monocyte# 0.97 X10^3/uL; NRBC Flagged by Analyzer 0 % (0-5); Neutrophil # 3.24 X10^3/uL (2.7-7.7); Neutrophil % 53.6 % (47-70); Platelet Count 349 K/mm3 (150-450); RBC Distribution Width CV 15.8 % (11.6-14.6); RBC Distribution Width SD 50.5 fl (35.1-43.9); Red Blood Count 4.52 M/mm3 (4.2-5.4); White Blood Count 6.1 K/mm3 (4.4-11.0)
[2020-06-25 10:53] LABS: ALB/GLOB Ratio 0.7 RATIO (0.9-2.4); AST(SGOT) 23 U/L (15-37); Alanine Aminotransfer ALT/SGPT 27 U/L (13-56); Albumin, Serum 3.7 g/dL (3.2-5.0); Alkaline Phosphatase 81 U/L (45-117); Anion Gap 7 (5-15); BUN 15 mg/dL (7-18); BUN/Creat Ratio 20.2 RATIO (10-20); CPK Total, Creatine Kinase 37 U/L (26-192); Calcium,Total 9.8 mg/dL (8.5-10.1); Chloride 102 mmol/L (98-107); Creatinine, Serum 0.74 mg/dL (0.55-1.02); EST Glomerular Filtration Rate 79 mL/min (>60); Est Glom Filt Rate - Afr Amer 96 mL/min (>60); Globulin 5.3 g/dL (2.2-4.2); Glucose 98 mg/dL (74-106); Potassium 3.2 mmol/L (3.5-5.1); Sodium Level 136 mmol/L (136-145)
== END ==
PROVIDERS: PCP Family Medicine; Referring Provider Internal Medicine Rheumatology; Visit Provider Internal Medicine Rheumatology
DX: M33.92 Dermatopolymyositis, unspecified with myopathy (principal); M15.9 Polyosteoarthritis, unspecified; M51.36 Other intervertebral disc degeneration, lumbar region; M81.0 Age-related osteoporosis without current pathological fracture; I10 Essential (primary) hypertension; E03.9 Hypothyroidism, unspecified; E21.1 Secondary hyperparathyroidism, not elsewhere classified; Z79.899 Other long term (current) drug therapy
CPT/HCPCS: 36415; 80053; 82550; 85025

== ENCOUNTER → 2020-08-03 07:53 | Outpatient (CLI) | payer MEDICARE, SELFPAY ==
[2020-06-16 08:01] VITALS: BMI 27.1
[2020-08-03 07:59] VITALS: BP 163/88; PULSE 78; RESP 16; TEMP 36.7; O2SAT 98
[2020-08-03] MEDS: Immune Globulin 20 gm Premixed Solution 45 BAG IV (08:09)
[2020-08-03] MEDS: Immune Globulin 20 gm Premixed Solution 180 BAG IV (10:06)
[2020-08-03] MEDS: Immune Globulin 5 GM Premixed Solution 22.5 BAG IV (11:23)
[2020-08-03 11:48] VITALS: BP 155/76; PULSE 70; RESP 16; TEMP 36.7; O2SAT 96
== END ==
PROVIDERS: PCP Family Medicine; Referring Provider Internal Medicine Rheumatology; Visit Provider Internal Medicine Rheumatology
DX: M33.92 Dermatopolymyositis, unspecified with myopathy (principal)
CPT/HCPCS: 96365; 96366; A4216; J1568

== ENCOUNTER 2020-08-04 07:54 | Outpatient (CLI) | payer MEDICARE, SELFPAY ==
[2020-06-16 08:01] VITALS: BMI 27.1
[2020-08-04] MEDS: Immune Globulin 20 gm Premixed Solution 45 BAG IV (08:15)
[2020-08-04 08:22] VITALS: BMI 26.9
[2020-08-04] MEDS: Immune Globulin 20 gm Premixed Solution 180 BAG IV (10:12)
[2020-08-04] MEDS: Immune Globulin 5 GM Premixed Solution 180 BAG IV (11:26)
== END 2020-08-04 14:00 | disposition home or self-care (01) ==
LOC: MEDOUTP 07:54
PROVIDERS: PCP Family Medicine; Referring Provider Internal Medicine Rheumatology; Visit Provider Internal Medicine Rheumatology
DX: M33.92 Dermatopolymyositis, unspecified with myopathy (principal)
CPT/HCPCS: 96365; 96366; A4216; J1568

== ENCOUNTER → 2020-09-28 07:51 | Outpatient (CLI) | payer MEDICARE, SELFPAY ==
[2020-06-16 08:01] VITALS: BMI 27.1
[2020-09-28 08:03] VITALS: BP 188/74; PULSE 85; RESP 16; TEMP 36.5; O2SAT 96; BMI 27.5
[2020-09-28] MEDS: 0.9% NaCl Peripheral Flush Adult/Peds IV (08:12)
[2020-09-28] MEDS: Immune Globulin 20 gm Premixed Solution 46 BAG IV (08:32)
[2020-09-28] MEDS: Immune Globulin 20 gm Premixed Solution 180 BAG IV (10:24)
[2020-09-28] MEDS: Immune Globulin 5 GM Premixed Solution 46 BAG IV (11:39)
== END ==
PROVIDERS: PCP Family Medicine; Referring Provider Internal Medicine Rheumatology; Visit Provider Internal Medicine Rheumatology
DX: M33.92 Dermatopolymyositis, unspecified with myopathy (principal)
CPT/HCPCS: 96365; 96366 ×2; A4216; J1568

== ENCOUNTER → 2020-09-29 07:56 | Outpatient (CLI) | payer MEDICARE, SELFPAY ==
[2020-06-16 08:01] VITALS: BMI 27.1
[2020-09-29] MEDS: Immune Globulin 20 gm Premixed Solution 45 BAG IV (08:09)
[2020-09-29 08:14] VITALS: BP 178/88; PULSE 104; RESP 16; TEMP 36; O2SAT 98; BMI 27.5
[2020-09-29] MEDS: Immune Globulin 20 gm Premixed Solution 180 BAG IV (10:05)
[2020-09-29] MEDS: Immune Globulin 5 GM Premixed Solution 180 BAG IV (11:23)
== END ==
PROVIDERS: PCP Family Medicine; Referring Provider Internal Medicine Rheumatology; Visit Provider Internal Medicine Rheumatology
DX: M33.92 Dermatopolymyositis, unspecified with myopathy (principal)
CPT/HCPCS: 96365; 96366; A4216; J1568

== ENCOUNTER → 2020-10-06 07:10 | Outpatient (CLI) | payer MEDICARE, SELFPAY ==
--- NOTE | 2020-10-06 07:12 | BI_ITS ---
MAMMOGRAPHY - BILATERAL SCREENING 3-D TOMOSYNTHESIS REASON FOR EXAM: Female, 85 years old. SCREENING PERTINENT HISTORY: No significant family history. TECHNIQUE: 2-D mammograms and 3-D Tomosynthesis of the breast (s) were performed. CAD was performed. COMPARISON: 09/16/2019 FINDINGS: The breast composition is composed of scattered fibroglandular density. Scattered benign calcifications are seen. No dense spiculated masses or suspicious microcalcifications are identified. No architectural distortion is identified. There is no skin thickening or retraction. There has been no significant change since the prior study. BI/SCRN MAMM (CAD)W/RJ BILAT IMPRESSION: No mammographic signs of malignancy. Routine yearly mammograms recommended. ASSESSMENT CATEGORY: BIRADS Category 1: Negative. A letter regarding these results will be sent to the patient by the facility within 30 days. FOLLOW UP RECOMMENDATION: Yearly follow up mammogram recommended. (A) Approximately 10% of breast cancers are not detected by mammography. A normal mammogram should not delay biopsy of a clinically suspicious abnormality. Electronically Signed: Keegan Huddleston MD at 10:13 EDT Tel , Service support ,
== END ==
PROVIDERS: PCP Family Medicine; Referring Provider Family Medicine; Visit Provider Family Medicine
DX: Z12.31 Encounter for screening mammogram for malignant neoplasm of breast (principal)
CPT/HCPCS: 77063; 77067

== ENCOUNTER → 2020-10-08 07:33 | Outpatient (CLI) | payer MEDICARE, SELFPAY ==
[2020-10-08 10:21] LABS: Absolute Lymphocyte Count 1.62 X10^3/uL (0.83-4.51); Absolute Neutrophil Count 3.4 X10^3/uL (2.0-7.7); Basophil# 0.07 X10^3/uL; Basophil% 1.2 % (0-1); Eosinophil# 0.07 X10^3/uL; Eosinophils% 1.2 % (0-5); Hematocrit 38.6 % (37-47); Hemoglobin 12.7 g/dL (12.0-15.0); Lymphocyte # 1.62 X10^3/ul (0.83-4.51); Lymphocyte % 27.8 % (19-41); Mean Corp Hgb Conc 32.9 g/dL (32-36); Mean Corpuscular Hgb 29.6 pg (27.0-32.0); Monocyte# 0.65 X10^3/uL; Monocyte% 11.2 % (0-10); NRBC Flagged by Analyzer 0 % (0-5); Neutrophil # 3.39 X10^3/uL (2.7-7.7); Neutrophil % 58.3 % (47-70); Platelet Count 309 K/mm3 (150-450); RBC Distribution Width CV 15.1 % (11.6-14.6); RBC Distribution Width SD 48.7 fl (35.1-43.9); Red Blood Count 4.29 M/mm3 (4.2-5.4); White Blood Count 5.8 K/mm3 (4.4-11.0)
[2020-10-08 11:02] LABS: ALB/GLOB Ratio 0.8 RATIO (0.9-2.4); AST(SGOT) 43 U/L (15-37); Alanine Aminotransfer ALT/SGPT 74 U/L (13-56); Albumin, Serum 3.6 g/dL (3.2-5.0); Alkaline Phosphatase 73 U/L (45-117); Anion Gap 10 (5-15); BUN 14 mg/dL (7-18); BUN/Creat Ratio 18.1 RATIO (10-20); CPK Total, Creatine Kinase 95 U/L (26-192); Calcium,Total 9.5 mg/dL (8.5-10.1); Chloride 105 mmol/L (98-107); Creatinine, Serum 0.77 mg/dL (0.55-1.02); EST Glomerular Filtration Rate 76 mL/min (>60); Est Glom Filt Rate - Afr Amer 92 mL/min (>60); Globulin 4.8 g/dL (2.2-4.2); Glucose 136 mg/dL (74-106); Potassium 3.7 mmol/L (3.5-5.1); Protein, Total 8.4 g/dL (6.4-8.2); Sodium Level 136 mmol/L (136-145); Thyroid Stim Hormone (TSH) 3.74 uIU/mL (0.358-3.74)
== END ==
PROVIDERS: PCP Family Medicine; Referring Provider Family Medicine; Visit Provider Family Medicine
DX: M33.92 Dermatopolymyositis, unspecified with myopathy (principal); E03.8 Other specified hypothyroidism; E55.9 Vitamin D deficiency, unspecified; E21.1 Secondary hyperparathyroidism, not elsewhere classified; M15.9 Polyosteoarthritis, unspecified; M81.0 Age-related osteoporosis without current pathological fracture; Z79.899 Other long term (current) drug therapy
CPT/HCPCS: 36415; 80053; 82306; 82550; 83970; 84443; 85025

== ENCOUNTER → 2020-10-26 07:47 | Outpatient (CLI) | payer MEDICARE, SELFPAY ==
--- NOTE | 2020-10-26 07:54 | US_ITS ---
STUDY: ABDOMINAL ULTRASOUND - RIGHT UPPER QUADRANT REASON FOR VISIT: Female, 85 years old ELEVATED ENZYMES TECHNIQUE: Ultrasound evaluation of the right upper quadrant was performed with real-time and static mckenzie-scale imaging. TECHNICAL QUALITY: Adequate. COMPARISON: None. FINDINGS: Liver: The liver measures 12.9 cm. There is increased echogenicity consistent with fatty infiltration. The bile ducts are within normal limits. There is hepatic color flow. The direction of portal flow is hepatopetal. There is no demonstrated mass lesion. Gallbladder: Normal distended gallbladder. The gallbladder wall measures 2.5 mm. There is a negative sonographic Agrcía''s sign. There is no pericholecystic fluid. There are no gallstones. Sludge is seen within the gallbladder lumen. Common Bile Duct (C.B.D.): The common bile duct measures 7.9 mm. Pancreas: Normal size of the head, body and tail of the pancreas. There is normal echogenicity of the pancreas. There is no demonstrated pancreatic mass or cyst. Right Kidney: Normal size of the right kidney. The right kidney measures 9.9 cm x 4.9 cm x 3.9 cm. Normal renal cortex. The right cortex measures 1.1 cm. 5.6 cm x 4.8 cm cyst in the lateral lower pole of the right kidney. There is no right hydronephrosis. US/Liver IMPRESSION: Fatty infiltration of the liver. Small amount of sludge is seen within the gallbladder lumen. Right renal cyst. Electronically Signed: Jose Jackson MD at 15:04 EDT , Service support ,
== END ==
PROVIDERS: PCP Family Medicine; Referring Provider Internal Medicine Rheumatology; Visit Provider Internal Medicine Rheumatology
DX: K76.0 Fatty (change of) liver, not elsewhere classified (principal); N28.1 Cyst of kidney, acquired; R94.5 Abnormal results of liver function studies; M33.92 Dermatopolymyositis, unspecified with myopathy; M15.9 Polyosteoarthritis, unspecified; M51.36 Other intervertebral disc degeneration, lumbar region; M81.0 Age-related osteoporosis without current pathological fracture; I10 Essential (primary) hypertension; E03.9 Hypothyroidism, unspecified; E21.1 Secondary hyperparathyroidism, not elsewhere classified; H35.30 Unspecified macular degeneration; H35.3290 Exudative age-related macular degeneration, unspecified eye, stage unspecified
CPT/HCPCS: 76705

== ENCOUNTER → 2020-11-17 07:46 | Outpatient (CLI) | payer MEDICARE, SELFPAY ==
[2020-11-17 10:31] LABS: ALB/GLOB Ratio 0.8 RATIO (0.9-2.4); AST(SGOT) 14 U/L (15-37); Alanine Aminotransfer ALT/SGPT 21 U/L (13-56); Albumin, Serum 3.5 g/dL (3.2-5.0); Alkaline Phosphatase 84 U/L (45-117); Anion Gap 8 (5-15); BUN 11 mg/dL (7-18); BUN/Creat Ratio 15.7 RATIO (10-20); CPK Total, Creatine Kinase 43 U/L (26-192); Calcium,Total 9.5 mg/dL (8.5-10.1); Chloride 106 mmol/L (98-107); EST Glomerular Filtration Rate 85 mL/min (>60); Est Glom Filt Rate - Afr Amer 102 mL/min (>60); Globulin 4.6 g/dL (2.2-4.2); Glucose 105 mg/dL (74-106); Potassium 3.5 mmol/L (3.5-5.1); Protein, Total 8.1 g/dL (6.4-8.2); Sodium Level 138 mmol/L (136-145)
== END ==
PROVIDERS: PCP Family Medicine; Referring Provider Internal Medicine Rheumatology; Visit Provider Internal Medicine Rheumatology
DX: M33.92 Dermatopolymyositis, unspecified with myopathy (principal); M15.9 Polyosteoarthritis, unspecified; M51.36 Other intervertebral disc degeneration, lumbar region; M81.0 Age-related osteoporosis without current pathological fracture; I10 Essential (primary) hypertension; E03.9 Hypothyroidism, unspecified; E21.1 Secondary hyperparathyroidism, not elsewhere classified; H35.30 Unspecified macular degeneration; H35.3290 Exudative age-related macular degeneration, unspecified eye, stage unspecified; Z79.899 Other long term (current) drug therapy
CPT/HCPCS: 36415; 80053; 82550

== ENCOUNTER → 2020-11-23 07:48 | Outpatient (CLI) | payer MEDICARE, SELFPAY ==
[2020-11-23] MEDS: Acetaminophen 325 MG Tablet 650 MG PO (07:56)
[2020-11-23] MEDS: DiphenhydrAMINE 25 MG Capsule PO (07:56)
[2020-11-23 08:05] VITALS: BP 146/96; PULSE 91; RESP 16; TEMP 36.3; O2SAT 95; BMI 27.1
[2020-11-23] MEDS: Immune Globulin 20 gm Premixed Solution 46 BAG IV (08:14)
[2020-11-23] MEDS: Immune Globulin 20 gm Premixed Solution 180 BAG IV (10:08)
[2020-11-23] MEDS: Immune Globulin 5 GM Premixed Solution 180 BAG IV (11:26)
== END ==
PROVIDERS: PCP Family Medicine; Referring Provider Internal Medicine Rheumatology; Visit Provider Internal Medicine Rheumatology
DX: M33.92 Dermatopolymyositis, unspecified with myopathy (principal)
CPT/HCPCS: 96365; 96366; A4216; J1568

== ENCOUNTER → 2020-11-24 07:46 | Outpatient (CLI) | payer MEDICARE, SELFPAY ==
[2020-11-24 07:57] VITALS: BP 146/99; PULSE 90; RESP 16; TEMP 36.3; O2SAT 96
[2020-11-24] MEDS: Immune Globulin 20 gm Premixed Solution 46 BAG IV (08:22)
[2020-11-24] MEDS: Immune Globulin 20 gm Premixed Solution 180 BAG IV (10:22)
[2020-11-24] MEDS: Immune Globulin 5 GM Premixed Solution 180 BAG IV (11:34)
[2020-11-24 12:00] VITALS: BP 159/93; PULSE 73; TEMP 36.2
== END ==
PROVIDERS: PCP Family Medicine; Referring Provider Internal Medicine Rheumatology; Visit Provider Internal Medicine Rheumatology
DX: M33.92 Dermatopolymyositis, unspecified with myopathy (principal)
CPT/HCPCS: 96365; 96366; A4216; J1568

== ENCOUNTER → 2020-12-27 07:51 | Outpatient (CLI) | payer MEDICARE, SELFPAY ==
[2020-12-27 10:50] LABS: ALB/GLOB Ratio 0.7 RATIO (0.9-2.4); AST(SGOT) 19 U/L (15-37); Alanine Aminotransfer ALT/SGPT 21 U/L (13-56); Albumin, Serum 3.6 g/dL (3.2-5.0); Alkaline Phosphatase 84 U/L (45-117); Anion Gap 6 (5-15); BUN 11 mg/dL (7-18); BUN/Creat Ratio 15.3 RATIO (10-20); CPK Total, Creatine Kinase 36 U/L (26-192); Calcium,Total 9.7 mg/dL (8.5-10.1); Chloride 105 mmol/L (98-107); Creatinine, Serum 0.72 mg/dL (0.55-1.02); EST Glomerular Filtration Rate 82 mL/min (>60); Est Glom Filt Rate - Afr Amer 99 mL/min (>60); Globulin 4.9 g/dL (2.2-4.2); Glucose 98 mg/dL (74-106); Potassium 3.5 mmol/L (3.5-5.1); Protein, Total 8.5 g/dL (6.4-8.2); Sodium Level 138 mmol/L (136-145)
== END ==
PROVIDERS: PCP Family Medicine; Referring Provider Internal Medicine Rheumatology; Visit Provider Internal Medicine Rheumatology
DX: M33.92 Dermatopolymyositis, unspecified with myopathy (principal); M15.9 Polyosteoarthritis, unspecified; M51.36 Other intervertebral disc degeneration, lumbar region; M81.0 Age-related osteoporosis without current pathological fracture; I10 Essential (primary) hypertension; E03.9 Hypothyroidism, unspecified; E21.1 Secondary hyperparathyroidism, not elsewhere classified; H35.30 Unspecified macular degeneration; H35.3290 Exudative age-related macular degeneration, unspecified eye, stage unspecified; K76.0 Fatty (change of) liver, not elsewhere classified; Z79.899 Other long term (current) drug therapy
CPT/HCPCS: 36415; 80053; 82550

== ENCOUNTER → 2021-01-18 07:47 | Outpatient (CLI) | payer MEDICARE, SELFPAY ==
[2021-01-18 08:01] VITALS: BP 148/83; PULSE 92; RESP 16; TEMP 36.6; O2SAT 96; BMI 26.5
[2021-01-18] MEDS: Immune Globulin 20 gm Premixed Solution 46 BAG IV (08:02)
[2021-01-18] MEDS: Immune Globulin 20 gm Premixed Solution 180 BAG IV (09:56)
[2021-01-18] MEDS: Immune Globulin 5 GM Premixed Solution 180 BAG IV (11:18)
== END ==
PROVIDERS: PCP Family Medicine; Referring Provider Internal Medicine Rheumatology; Visit Provider Internal Medicine Rheumatology
DX: M33.92 Dermatopolymyositis, unspecified with myopathy (principal)
CPT/HCPCS: 96365; 96366 ×3; A4216; J1568

== ENCOUNTER → 2021-01-19 07:47 | Outpatient (CLI) | payer MEDICARE, SELFPAY ==
[2021-01-19 08:08] VITALS: BP 142/88; PULSE 91; RESP 16; TEMP 37; O2SAT 96; BMI 26.5
[2021-01-19] MEDS: Immune Globulin 20 gm Premixed Solution 46 BAG IV (08:39)
[2021-01-19] MEDS: Immune Globulin 20 gm Premixed Solution 180 BAG IV (10:45)
[2021-01-19] MEDS: Immune Globulin 5 GM Premixed Solution 180 BAG IV (12:06)
== END ==
PROVIDERS: PCP Family Medicine; Referring Provider Internal Medicine Rheumatology; Visit Provider Internal Medicine Rheumatology
DX: M33.92 Dermatopolymyositis, unspecified with myopathy (principal)
CPT/HCPCS: 96365; 96366 ×3; A4216; J1568

== ENCOUNTER → 2021-03-08 09:04 | Outpatient (CLI) | payer MEDICARE, SELFPAY ==
[2021-03-08 10:30] LABS: Anion Gap 6 (5-15); BUN 13 mg/dL (7-18); BUN/Creat Ratio 19.1 RATIO (10-20); Calcium,Total 9.9 mg/dL (8.5-10.1); Chloride 106 mmol/L (98-107); Creatinine, Serum 0.68 mg/dL (0.55-1.02); EST Glomerular Filtration Rate 87 mL/min (>60); Est Glom Filt Rate - Afr Amer 106 mL/min (>60); Glucose 127 mg/dL (74-106); Potassium 3.6 mmol/L (3.5-5.1); Sodium Level 138 mmol/L (136-145)
== END ==
PROVIDERS: PCP Family Medicine
DX: E03.8 Other specified hypothyroidism (principal)
CPT/HCPCS: 36415; 80048

== ENCOUNTER 2021-03-15 07:51 | Outpatient (CLI) | payer MEDICARE, SELFPAY ==
[2021-03-15] MEDS: Immune Globulin 20 gm Premixed Solution 45.5 BAG IV (08:19)
[2021-03-15 08:24] VITALS: BP 149/79; PULSE 91; RESP 16; TEMP 36.7; O2SAT 99
[2021-03-15] MEDS: Immune Globulin 20 gm Premixed Solution 180 BAG IV (10:12)
[2021-03-15] MEDS: Immune Globulin 5 GM Premixed Solution 180 BAG IV (11:30)
== END 2021-03-15 23:59 | disposition home or self-care (01) ==
LOC: MEDOUTP 07:53
PROVIDERS: PCP Family Medicine; Referring Provider Internal Medicine Rheumatology; Visit Provider Internal Medicine Rheumatology
DX: M33.92 Dermatopolymyositis, unspecified with myopathy (principal)
CPT/HCPCS: 96365; 96366 ×3; A4216; J1568

== ENCOUNTER 2021-03-16 07:46 | Outpatient (CLI) | payer MEDICARE, SELFPAY ==
[2021-03-16 07:56] VITALS: BP 146/86; PULSE 86; RESP 16; TEMP 36.2; O2SAT 95; BMI 26.4
[2021-03-16] MEDS: Immune Globulin 20 gm Premixed Solution 45.5 BAG IV (08:10)
[2021-03-16] MEDS: Immune Globulin 20 gm Premixed Solution 180 BAG IV (10:09)
[2021-03-16] MEDS: Immune Globulin 5 GM Premixed Solution 180 BAG IV (11:30)
== END 2021-03-16 23:59 | disposition home or self-care (01) ==
LOC: MEDOUTP 07:46
PROVIDERS: PCP Family Medicine; Referring Provider Internal Medicine Rheumatology; Visit Provider Internal Medicine Rheumatology
DX: M33.92 Dermatopolymyositis, unspecified with myopathy (principal)
CPT/HCPCS: 96365; 96366 ×3; A4216; J1568

== ENCOUNTER 2021-04-11 07:39 | Outpatient (CLI) | payer MEDICARE, SELFPAY ==
[2021-04-11 10:29] LABS: Erythrocyte Sedimentation Rate 23 mm/hr (0-30)
[2021-04-11 10:35] LABS: Absolute Lymphocyte Count 1.88 X10^3/uL (0.83-4.51); Absolute Neutrophil Count 3.7 X10^3/uL (2.0-7.7); Basophil# 0.06 X10^3/uL; Basophil% 0.9 % (0-1); Eosinophil# 0.09 X10^3/uL; Eosinophils% 1.4 % (0-5); Hematocrit 39.6 % (37-47); Hemoglobin 13.2 g/dL (12.0-15.0); Lymphocyte # 1.88 X10^3/ul (0.83-4.51); Lymphocyte % 29.1 % (19-41); Mean Corp Hgb Conc 33.3 g/dL (32-36); Mean Corpuscular Hgb 29.9 pg (27.0-32.0); Mean Corpuscular Volume 89.6 fL (81-99); Mean Platelet Vol. 9.5 fl (6.2-12.0); Monocyte# 0.67 X10^3/uL; Monocyte% 10.4 % (0-10); NRBC Flagged by Analyzer 0 % (0-5); Neutrophil # 3.74 X10^3/uL (2.7-7.7); Neutrophil % 57.9 % (47-70); Platelet Count 328 K/mm3 (150-450); RBC Distribution Width CV 15.9 % (11.6-14.6); RBC Distribution Width SD 51.7 fl (35.1-43.9); Red Blood Count 4.42 M/mm3 (4.2-5.4); White Blood Count 6.5 K/mm3 (4.4-11.0)
[2021-04-11 10:53] LABS: ALB/GLOB Ratio 0.8 RATIO (0.9-2.4); AST(SGOT) 18 U/L (15-37); Alanine Aminotransfer ALT/SGPT 25 U/L (13-56); Albumin, Serum 3.7 g/dL (3.2-5.0); Alkaline Phosphatase 73 U/L (45-117); Anion Gap 6 (5-15); BUN 14 mg/dL (7-18); BUN/Creat Ratio 21.1 RATIO (10-20); CPK Total, Creatine Kinase 36 U/L (26-192); CRP < 2.90 mg/L (0.0-3.0); Calcium,Total 9.5 mg/dL (8.5-10.1); Chloride 106 mmol/L (98-107); Cholesterol 166 mg/dL (200); Creatinine, Serum 0.66 mg/dL (0.55-1.02); EST Glomerular Filtration Rate 90 mL/min (>60); Est Glom Filt Rate - Afr Amer 109 mL/min (>60); Globulin 4.4 g/dL (2.2-4.2); Glucose 99 mg/dL (74-106); High Density Lipoprotein 49 mg/dL; Potassium 3.4 mmol/L (3.5-5.1); Protein, Total 8.1 g/dL (6.4-8.2); Sodium Level 138 mmol/L (136-145); Triglycerides 119 mg/dL; Very Low Density Lipoprotein 24 mg/dL (5-40)
== END 2021-04-11 23:59 | disposition home or self-care (01) ==
LOC: MTLAB 07:41
PROVIDERS: PCP Family Medicine; Referring Provider Family Medicine; Visit Provider Family Medicine
DX: M33.92 Dermatopolymyositis, unspecified with myopathy (principal); M15.9 Polyosteoarthritis, unspecified; M51.36 Other intervertebral disc degeneration, lumbar region; M81.0 Age-related osteoporosis without current pathological fracture; I10 Essential (primary) hypertension; E03.9 Hypothyroidism, unspecified; Z79.899 Other long term (current) drug therapy
CPT/HCPCS: 36415; 80053; 80061; 82550; 85025; 85652; 86140

== ENCOUNTER 2021-05-10 07:56 | Outpatient (CLI) | payer MEDICARE, SELFPAY ==
[2021-05-10] MEDS: Immune Globulin 20 gm Premixed Solution 45.5 BAG IV (08:10)
[2021-05-10 08:19] VITALS: BP 161/84; PULSE 90; RESP 16; TEMP 36.4; O2SAT 98
[2021-05-10] MEDS: Immune Globulin 20 gm Premixed Solution 180 BAG IV (10:12)
[2021-05-10] MEDS: Immune Globulin 5 GM Premixed Solution 180 BAG IV (11:26)
== END 2021-05-10 23:59 | disposition home or self-care (01) ==
LOC: MEDOUTP 07:56
PROVIDERS: PCP Family Medicine; Referring Provider Internal Medicine Rheumatology; Visit Provider Internal Medicine Rheumatology
DX: M33.92 Dermatopolymyositis, unspecified with myopathy (principal)
CPT/HCPCS: 96365; 96366; A4216; J1568

== ENCOUNTER 2021-05-11 07:53 | Outpatient (CLI) | payer MEDICARE, SELFPAY ==
[2021-05-11] MEDS: Immune Globulin 20 gm Premixed Solution 45.5 BAG IV (08:27)
[2021-05-11 08:30] VITALS: BP 143/77; PULSE 77; RESP 12; TEMP 36.4; O2SAT 96; BMI 26.7
[2021-05-11] MEDS: Immune Globulin 20 gm Premixed Solution 180 BAG IV (10:27)
[2021-05-11] MEDS: Immune Globulin 5 GM Premixed Solution 180 BAG IV (11:44)
== END 2021-05-11 23:59 | disposition home or self-care (01) ==
LOC: MEDOUTP 07:53
PROVIDERS: PCP Family Medicine; Referring Provider Internal Medicine Rheumatology; Visit Provider Internal Medicine Rheumatology
DX: M33.92 Dermatopolymyositis, unspecified with myopathy (principal)
CPT/HCPCS: 96365; 96366; A4216; J1568

== ENCOUNTER → 2021-06-24 | Outpatient (CLI) | payer MEDICARE, SELFPAY ==
[2021-06-24 10:41] LABS: Absolute Lymphocyte Count 2.05 X10^3/uL (0.83-4.51); Absolute Neutrophil Count 3.4 X10^3/uL (2.0-7.7); Basophil# 0.06 X10^3/uL; Basophil% 0.9 % (0-1); Eosinophils% 1.6 % (0-5); Hematocrit 40.6 % (37-47); Hemoglobin 13.2 g/dL (12.0-15.0); Lymphocyte # 2.05 X10^3/ul (0.83-4.51); Lymphocyte % 32.4 % (19-41); Mean Corp Hgb Conc 32.5 g/dL (32-36); Mean Corpuscular Hgb 28.9 pg (27.0-32.0); Mean Corpuscular Volume 88.8 fL (81-99); Mean Platelet Vol. 9.2 fl (6.2-12.0); Monocyte# 0.72 X10^3/uL; Monocyte% 11.4 % (0-10); NRBC Flagged by Analyzer 0 % (0-5); Neutrophil # 3.37 X10^3/uL (2.7-7.7); Neutrophil % 53.2 % (47-70); Platelet Count 352 K/mm3 (150-450); RBC Distribution Width CV 15.5 % (11.6-14.6); RBC Distribution Width SD 50.4 fl (35.1-43.9); Red Blood Count 4.57 M/mm3 (4.2-5.4); White Blood Count 6.3 K/mm3 (4.4-11.0)
[2021-06-24 10:58] LABS: AST(SGOT) 17 U/L (15-37); Alanine Aminotransfer ALT/SGPT 27 U/L (13-56); Albumin, Serum 3.8 g/dL (3.2-5.0); Alkaline Phosphatase 77 U/L (45-117); Anion Gap 8 (5-15); BUN 13 mg/dL (7-18); BUN/Creat Ratio 19.2 RATIO (10-20); CPK Total, Creatine Kinase 37 U/L (26-192); Calcium,Total 9.3 mg/dL (8.5-10.1); Chloride 106 mmol/L (98-107); Creatinine, Serum 0.68 mg/dL (0.55-1.02); EST Glomerular Filtration Rate 88 mL/min (>60); Est Glom Filt Rate - Afr Amer 106 mL/min (>60); Globulin 3.7 g/dL (2.2-4.2); Glucose 96 mg/dL (74-106); Potassium 3.8 mmol/L (3.5-5.1); Protein, Total 7.5 g/dL (6.4-8.2); Sodium Level 138 mmol/L (136-145)
== END | disposition home or self-care (01) ==
LOC: MTLAB 07:09
PROVIDERS: PCP Family Medicine; Referring Provider Internal Medicine Rheumatology; Visit Provider Internal Medicine Rheumatology
DX: M33.92 Dermatopolymyositis, unspecified with myopathy (principal); M15.9 Polyosteoarthritis, unspecified; M51.36 Other intervertebral disc degeneration, lumbar region; M81.0 Age-related osteoporosis without current pathological fracture; I10 Essential (primary) hypertension; E03.9 Hypothyroidism, unspecified; Z79.899 Other long term (current) drug therapy
CPT/HCPCS: 36415; 80053; 82550; 85025

== ENCOUNTER → 2021-07-07 | Outpatient (CLI) | payer MEDICARE, SELFPAY ==
[2021-07-07 08:01] VITALS: BP 151/94; PULSE 95; RESP 16; TEMP 36.4; O2SAT 96; BMI 25.9
[2021-07-07] MEDS: Immune Globulin 20 gm Premixed Solution 0.5 BAG IV (08:20)
[2021-07-07] MEDS: 0.9% NaCl Peripheral Flush Adult/Peds IV (08:26)
[2021-07-07] MEDS: Immune Globulin 20 gm Premixed Solution 180 BAG IV (11:14)
== END | disposition home or self-care (01) ==
LOC: MEDOUTP 07:53
PROVIDERS: PCP Family Medicine; Referring Provider Internal Medicine Rheumatology; Visit Provider Internal Medicine Rheumatology
DX: M33.92 Dermatopolymyositis, unspecified with myopathy (principal)
CPT/HCPCS: 96365; 96366 ×3; A4216; J1568

== ENCOUNTER → 2021-07-08 | Outpatient (CLI) | payer MEDICARE, SELFPAY ==
[2021-07-08 07:59] VITALS: BP 143/79; PULSE 85; RESP 16; TEMP 36.7; O2SAT 97; BMI 25.9
[2021-07-08] MEDS: 0.9% NaCl Peripheral Flush Adult/Peds IV (08:18)
[2021-07-08] MEDS: Immune Globulin 20 gm Premixed Solution 0.5 BAG IV (08:19)
[2021-07-08] MEDS: Immune Globulin 20 gm Premixed Solution 180 BAG IV (10:31)
== END | disposition home or self-care (01) ==
LOC: MEDOUTP 07:53
PROVIDERS: PCP Family Medicine; Referring Provider Internal Medicine Rheumatology; Visit Provider Internal Medicine Rheumatology
DX: M33.92 Dermatopolymyositis, unspecified with myopathy (principal)
CPT/HCPCS: 96365; 96366 ×3; A4216; J1568

== ENCOUNTER → 2021-07-12 | Outpatient (CLI) | payer MEDICARE, SELFPAY ==
[2021-07-12 13:20] VITALS: BP 171/89; PULSE 94; RESP 16; TEMP 36.3
[2021-07-12] MEDS: DENOSUMAB 60 MG/ML SC (13:24)
== END | disposition home or self-care (01) ==
LOC: MEDOUTP 13:16
PROVIDERS: PCP Family Medicine; Referring Provider Internal Medicine Endocrinology, Diabetes & Metabolism; Visit Provider Internal Medicine Endocrinology, Diabetes & Metabolism
DX: M81.0 Age-related osteoporosis without current pathological fracture (principal)
CPT/HCPCS: 96372; J0897

== ENCOUNTER → 2021-09-07 | Outpatient (CLI) | payer MEDICARE, SELFPAY ==
[2021-09-07] MEDS: Immune Globulin 20 gm Premixed Solution 45.5 BAG IV (08:10)
[2021-09-07] MEDS: 0.9% NaCl Peripheral Flush Adult/Peds IV (08:20)
[2021-09-07 08:28] VITALS: BP 156/87; PULSE 80; RESP 16; TEMP 35.8; O2SAT 98
[2021-09-07] MEDS: Immune Globulin 20 gm Premixed Solution 180 BAG IV (10:14)
[2021-09-07 11:24] VITALS: BP 147/73; PULSE 73; RESP 16; TEMP 35.6; O2SAT 97
== END | disposition home or self-care (01) ==
LOC: MEDOUTP 07:52
PROVIDERS: PCP Family Medicine; Referring Provider Internal Medicine Rheumatology; Visit Provider Internal Medicine Rheumatology
DX: M33.92 Dermatopolymyositis, unspecified with myopathy (principal)
CPT/HCPCS: 96365; 96366 ×2; A4216; J1568

== ENCOUNTER → 2021-09-08 | Outpatient (CLI) | payer MEDICARE, SELFPAY ==
[2021-09-08] MEDS: 0.9% NaCl Peripheral Flush Adult/Peds IV (07:59)
[2021-09-08] MEDS: Immune Globulin 20 gm Premixed Solution 45.5 BAG IV (08:03)
[2021-09-08 08:08] VITALS: BP 138/88; PULSE 86; RESP 14; TEMP 35.7; O2SAT 97; BMI 25.9
[2021-09-08] MEDS: Immune Globulin 20 gm Premixed Solution 180 BAG IV (10:01)
[2021-09-08 11:15] VITALS: BP 140/75; PULSE 72
== END | disposition home or self-care (01) ==
LOC: MEDOUTP 07:51
PROVIDERS: PCP Family Medicine; Referring Provider Internal Medicine Rheumatology; Visit Provider Internal Medicine Rheumatology
DX: M33.92 Dermatopolymyositis, unspecified with myopathy (principal)
CPT/HCPCS: 96365; 96366 ×2; A4216; J1568

== ENCOUNTER → 2021-10-21 | Outpatient (CLI) | payer MEDICARE, SELFPAY ==
[2021-10-21 10:08] LABS: Absolute Lymphocyte Count 1.54 X10^3/uL (0.83-4.51); Absolute Neutrophil Count 3.2 X10^3/uL (2.0-7.7); Basophil# 0.06 X10^3/uL; Eosinophil# 0.07 X10^3/uL; Eosinophils% 1.2 % (0-5); Hematocrit 41.4 % (37-47); Hemoglobin 13.4 g/dL (12.0-15.0); Lymphocyte # 1.54 X10^3/ul (0.83-4.51); Lymphocyte % 26.5 % (19-41); Mean Corp Hgb Conc 32.4 g/dL (32-36); Mean Corpuscular Hgb 28.5 pg (27.0-32.0); Mean Corpuscular Volume 88.1 fL (81-99); Mean Platelet Vol. 9.4 fl (6.2-12.0); Monocyte# 0.87 X10^3/uL; NRBC Flagged by Analyzer 0 % (0-5); Neutrophil # 3.24 X10^3/uL (2.7-7.7); Neutrophil % 55.8 % (47-70); Platelet Count 304 K/mm3 (150-450); RBC Distribution Width CV 17.1 % (11.6-14.6); RBC Distribution Width SD 53.2 fl (35.1-43.9); White Blood Count 5.8 K/mm3 (4.4-11.0)
[2021-10-21 10:21] LABS: ALB/GLOB Ratio 0.9 RATIO (0.9-2.4); AST(SGOT) 17 U/L (15-37); Alanine Aminotransfer ALT/SGPT 23 U/L (13-56); Albumin, Serum 3.7 g/dL (3.2-5.0); Alkaline Phosphatase 57 U/L (45-117); Anion Gap 9 (5-15); BUN 12 mg/dL (7-18); BUN/Creat Ratio 18.5 RATIO (10-20); CPK Total, Creatine Kinase 73 U/L (26-192); Calcium,Total 9.5 mg/dL (8.5-10.1); Chloride 107 mmol/L (98-107); Creatinine, Serum 0.65 mg/dL (0.55-1.02); EST Glomerular Filtration Rate 92 mL/min (>60); Est Glom Filt Rate - Afr Amer 112 mL/min (>60); Globulin 4.1 g/dL (2.2-4.2); Glucose 101 mg/dL (74-106); Potassium 3.6 mmol/L (3.5-5.1); Protein, Total 7.8 g/dL (6.4-8.2); Sodium Level 141 mmol/L (136-145)
== END | disposition home or self-care (01) ==
LOC: MTLAB 07:39
PROVIDERS: PCP Family Medicine; Referring Provider Internal Medicine Rheumatology; Visit Provider Internal Medicine Rheumatology
DX: M33.92 Dermatopolymyositis, unspecified with myopathy (principal); H35.3290 Exudative age-related macular degeneration, unspecified eye, stage unspecified; E21.1 Secondary hyperparathyroidism, not elsewhere classified; M15.9 Polyosteoarthritis, unspecified; M51.36 Other intervertebral disc degeneration, lumbar region; M81.0 Age-related osteoporosis without current pathological fracture; I10 Essential (primary) hypertension; E03.9 Hypothyroidism, unspecified; H35.30 Unspecified macular degeneration; K76.0 Fatty (change of) liver, not elsewhere classified; Z79.899 Other long term (current) drug therapy
CPT/HCPCS: 36415; 80053; 82550; 85025

== ENCOUNTER → 2021-11-02 | Outpatient (CLI) | payer MEDICARE, SELFPAY ==
[2021-11-02] MEDS: 0.9% NaCl Peripheral Flush Adult/Peds IV (07:59)
[2021-11-02] MEDS: Immune Globulin 20 gm Premixed Solution 45.5 BAG IV (08:05)
[2021-11-02 08:13] VITALS: BP 152/95; PULSE 95; RESP 14; TEMP 36.6; O2SAT 98; BMI 26.9
[2021-11-02] MEDS: Immune Globulin 20 gm Premixed Solution 180 BAG IV (10:05)
== END | disposition home or self-care (01) ==
LOC: MEDOUTP 07:48
PROVIDERS: PCP Family Medicine; Referring Provider Internal Medicine Rheumatology; Visit Provider Internal Medicine Rheumatology
DX: M33.92 Dermatopolymyositis, unspecified with myopathy (principal)
CPT/HCPCS: 96365; 96366 ×2; A4216; J1568

== ENCOUNTER → 2021-11-03 | Outpatient (CLI) | payer MEDICARE, SELFPAY ==
[2021-11-03] MEDS: 0.9% NaCl Peripheral Flush Adult/Peds IV (08:01)
[2021-11-03] MEDS: Immune Globulin 20 gm Premixed Solution 45.5 BAG IV (08:11)
[2021-11-03 08:13] VITALS: BP 131/72; PULSE 86; RESP 14; TEMP 36.2; O2SAT 100; BMI 26.9
[2021-11-03] MEDS: Immune Globulin 20 gm Premixed Solution 180 BAG IV (10:02)
== END | disposition home or self-care (01) ==
LOC: MEDOUTP 07:52
PROVIDERS: PCP Family Medicine; Referring Provider Internal Medicine Rheumatology; Visit Provider Internal Medicine Rheumatology
DX: M33.92 Dermatopolymyositis, unspecified with myopathy (principal)
CPT/HCPCS: 96365; 96366 ×2; A4216; J1568

== ENCOUNTER → 2021-11-14 | Outpatient (CLI) | payer MEDICARE, SELFPAY ==
--- NOTE | 2021-11-14 07:05 | BI_ITS ---
MAMMOGRAPHY - BILATERAL SCREENING REASON FOR EXAM: Female, 86 years old. Routine annual screening examination. PERTINENT HISTORY: Sister with breast cancer. Prior left excisional breast biopsy and left stereotactic breast biopsy. TECHNIQUE: Digital bilateral breast rj (3D mammographic acquisition) in the CC and MLO projections. 2-D mediolateral oblique (MLO) and craniocaudad (CC) views of both breasts were obtained. CAD: Full Field Digital Mammography with Computer Added Detection was performed. COMPARISON: Comparison is made with prior examination dated 10/06/2020 and 09/16/2019. FINDINGS: Breast Composition: The breasts are almost entirely fatty. There are no dominant masses or suspicious calcifications. Stable calcified nodule in the deep inferior central portion of the left breast. Stable bilateral secretory calcifications. No other significant abnormalities are identified. There has been no significant change since the prior study. BI/SCRN MAMM (CAD)W/RJ BILAT IMPRESSION: Stable bilateral screening mammogram. Yearly follow-up mammogram recommended. (A) ASSESSMENT CATEGORY: BIRADS Category 2: Benign. A letter regarding these results will be sent to the patient by the facility within 30 days. Approximately 10% of breast cancers are not detected by mammography. A normal mammogram should not delay biopsy of a clinically suspicious abnormality. [id number] Electronically Signed: Jose Jackson MD at 9:00 EDT ,
== END | disposition home or self-care (01) ==
LOC: OPBI 07:03
PROVIDERS: PCP Family Medicine; Visit Provider Family Medicine
DX: Z12.31 Encounter for screening mammogram for malignant neoplasm of breast (principal); Z80.3 Family history of malignant neoplasm of breast
CPT/HCPCS: 77063; 77067

== ENCOUNTER → 2021-12-27 | Outpatient (CLI) | payer MEDICARE, SELFPAY ==
[2021-12-27 08:03] VITALS: BP 153/86; PULSE 98; TEMP 36.9; O2SAT 97
[2021-12-27] MEDS: Immune Globulin 20 gm Premixed Solution 45.5 BAG IV (08:32)
[2021-12-27] MEDS: 0.9% NaCl Peripheral Flush Adult/Peds IV (08:33)
[2021-12-27] MEDS: Immune Globulin 20 gm Premixed Solution 180 BAG IV (10:26)
== END | disposition home or self-care (01) ==
LOC: MEDOUTP 07:44
PROVIDERS: PCP Family Medicine; Referring Provider Internal Medicine Rheumatology; Visit Provider Internal Medicine Rheumatology
DX: M33.92 Dermatopolymyositis, unspecified with myopathy (principal)
CPT/HCPCS: 96365; 96366 ×2; A4216; J1568

== ENCOUNTER 2022-01-02 02:26 | Observation (INO) | payer MEDICARE, SELFPAY ==
[2022-01-02] VITALS (19 sets, daily range): BP systolic 139–174; BP diastolic 72–100; PULSE 74–104; RESP 16–25; TEMP 36.1–36.9; O2SAT 90–99; BMI 29.0; BMI 27.6
--- NOTE | 2022-01-02 02:39 | EKG12_ITS ---
Test Reason : STROKE Blood Pressure : / mmHG Vent. Rate : 092 BPM Atrial Rate : 092 BPM P-R Int : 162 ms QRS Dur : 080 ms QT Int : 378 ms P-R-T Axes : 076 005 044 degrees QTc Int : 467 ms Normal sinus rhythm Right atrial enlargement Borderline ECG Confirmed by ANIYAH IQBAL, GREGORY ([id number]), editor magazine FRANCES EMERSON ([id number]) on 01/02/2022 12:11:03 PM Referred By: Confirmed By:GREGORY DILL MD
--- NOTE | 2022-01-02 02:39 | RAD_ITS ---
EXAM: XR CHEST, 1 VIEW CLINICAL INDICATION: Neuro deficit, acute, stroke suspected TECHNIQUE: Frontal view of the chest. This report was created using [employer] report generation technology. COMPARISON: 09/11/2012 FINDINGS: LUNGS AND PLEURAL SPACES: Unremarkable. No consolidation or edema. No pneumothorax. No effusion. HEART: Mild enlargement of the cardiac silhouette. MEDIASTINUM: Central airways and mediastinal contour are unremarkable. BONES/JOINTS: Degenerative changes of the spine. SOFT TISSUES: Unremarkable. RAD/Chest 1 View IMPRESSION: No acute findings in the chest. Electronically Signed: Will Valenzuela MD at 3:53 EST ,
--- NOTE | 2022-01-02 02:39 | EDS_ITS ---
HPI History of Present Illness Chief Complaint: Numb/Ting Informant: patient Onset/Context/Timing Onset: Today Context: Sudden Onset Timing: Continuous Quality and Location: Positive for Right Arm Parasthesia and Right Leg Parasthesia Onset: Midnight Worsened by: Nothing Relieved by: Nothing Narrative Narrative: Patient presents with numbness and tingling to her right arm and leg that began today approximately 2-1/2 hours prior to arrival. Patient states it is mainly on the right side. Patient states she was trying to go to sleep when the symptoms began. Patient states she has had some mild weakness in her right arm. Patient denies any nausea or vomiting. Patient denies any headaches. Patient denies any chest pain. Patient denies any difficulty with her speech. Patient states that her mouth feels dry but denies any other difficulty speaking. Patient states she had recent hip surgery [facility] Medical History Back problem Bone fracture Breast lump Cataract Fractured shoulder GERD (gastroesophageal reflux disease) High blood pressure Osteoporosis Osteoporosis Thyroid disease Home Medications prednisone 10 mg tablet 2.5 mg PO DAILY 01/08/13 [History Last Taken Unknown] ergocalciferol (vitamin D2) 1,250 mcg (50,000 unit) capsule (Vitamin D2) 50,000 unit PO SA 06/28/17 [History Last Taken Unknown] levothyroxine 88 mcg tablet 88 mcg PO DAILY 06/28/17 [History Last Taken Unknown] amlodipine 10 mg tablet 10 ea PO DAILY 06/07/21 [History Last Taken Unknown] avastin moblwl2 1 insert subcut QWEEK 06/07/21 [History Last Taken Unknown] ivig fusion 90 mg IV QWEEK 06/07/21 [History Last Taken Unknown] lutein 40 mg capsule 40 mg PO DAILY 06/07/21 [History Last Taken Unknown] omeprazole 10 mg capsule,delayed release 10 ea PO DAILY 06/07/21 [History Last Taken Unknown] pravastatin 40 mg tablet (Pravachol) 20 mg PO DAILY 06/07/21 [History Last Taken Unknown] calcitriol 0.5 mcg capsule 2 mcg PO DAILY 01/02/22 [History Last Taken Unknown] Allergy/AdvReac Type Severity Reaction Status Date / Time abaloparatide [From [facility]] AdvReac Severe vomitting Verified 01/02/22 02:34 Family History (Updated 06/07/21 @ 14:28 by Jeane Ochoa) Other CVA (cerebral vascular accident) Hypertension Osteoporosis Thyroid disorder Surgical History H/O spinal fusion History of total left knee replacement (TKR) Social History Smoking Status: Never smoker what type of physical activity do you participate in: other ROS ROS ED Constitutional Constitutional ED: Denies chills or fever(s) Eyes Eyes: Denies blurry vision or change in vision ENT ENT ED: Denies rhinorrhea or sore throat Cardiovascular Cardiovascular: Denies chest pain or palpitations Respiratory/Chest Respiratory/Chest: Denies cough or dyspnea Gastrointestinal Gastrointestinal: Reports diarrhea; Denies nausea or vomiting Genitourinary Genitourinary ED: Denies dysuria or hematuria Musculoskeletal Musculoskeletal: Denies back pain or neck pain Integumentary Denies abscess or rash Neurologic Neurologic: Denies headache(s) or weakness Allergic/Immunologic Allergic/Immunologic ED: Denies mouth swelling or urticaria EXAM Physical Exam Const Vital Signs: 01/02/22 02:27 01/02/22 02:47 01/02/22 02:39 Temperature 97.2 F L 97.2 F L Temperature Source Temporal Temporal Pulse Rate 89 89 Respiratory Rate 18 18 Blood Pressure 174/93 H 174/93 H Blood Pressure Mean 120 120 Pulse Ox 97 97 Oxygen Delivery Method Room Air Room Air Room Air 01/02/22 03:09 01/02/22 03:30 Temperature Temperature Source Pulse Rate 87 88 Respiratory Rate 18 17 Blood Pressure 168/94 H 160/100 H Blood Pressure Mean 118 120 Pulse Ox 97 97 Oxygen Delivery Method Room Air Room Air Positive well nourished and well developed General Appearance ED: well developed and NAD HEENT Reports moist mucous membranes Neck supple and no JVD Resp normal respiratory effort and clear to auscultation bilaterally Cardio regular rate, regular rhythm and no murmurs GI normal to inspection, nondistended, normoactive bowel sounds and non-tender Palpation: soft Extremity normal to inspection General Extremety ED: Negative for edema or tenderness General Extremity: Negative for edema Neuro oriented x3, CN's II-XII intact bilaterally and no sensory deficits noted Sensorium / Orientation: alert Motor Exam: strength abnormal other (There is some mild pronator drift of the right upper extremity. It did not fall to the bed within 10 seconds.) Psych mental status grossly normal Skin no rashes or lesions noted NIHSS NIHSS Initial: 1a Level of Consciousness: 0 1b LOC Questions (Score 2 if aphasic/stupor): 0 1c LOC Commands (Only score 1st attempt): 0 2 Best Gaze (If aphasic, use reflexive mvmts.): 0 3 Visual: 0 4 Facial Palsy: 0 5 Motor Arm Right (UN = amputation/fusion): 1 5 Motor Arm Left: 0 6 Motor Leg Right: 0 6 Motor Leg Left: 0 7 Limb ataxia (Only + if out of proportion): 0 8 Sensory (Aphasia/stupor=0 or 1, coma=2): 0 9 Best Language: 0 10 Dysarthria (mute, coma=2, intubated=UN): 0 11 Extinction and Inattention (only scored if +): 0 Total Score: 1 MDM MDM MDM Narrative Medical decision making narrative: Stroke alert was called. Initial CT scan of the brain was obtained. There is no acute intracranial abnormality. This was interpreted by the radiologist and reviewed by myself. CTA of the head neck was obtained. There is 60% stenosis of the right proximal internal carotid artery. There is moderate narrowing of the P1 segment of the posterior cerebral artery. There is good collateral flow. This was interpreted by the radiologist and reviewed by myself. CBC was within normal limits. PT with INR and PTT were within normal limits. BGT was 154. Basic metabolic profile was essentially within normal limits. High-sensitivity troponin was normal. Portable 1 view chest x-ray was obtained. On my interpretation, lung maguire are clear. There is normal cardiac silhouette. Bony thorax is normal. There is no acute process noted. Radiologist also interpreted the x-ray and agrees. EKG was obtained. On my interpretation, it showed a normal sinus rhythm with a rate of 92. NM interval, QRS interval, and QTc intervals were all normal. Straughn was normal. There are no acute ST or T wave changes. Stroke neurologist evaluated the patient and felt that the patient does not meet criteria for tPA due to the low NIH stroke scale score. Patient will be admitted here locally. Case was discussed with the hospitalist. He will admit the patient for observation. Patient and family understood and were agreeable with the plan. All questions were answered. Lab Data Attestation: I reviewed the patient's lab results. Labs: Laboratory Results - last 24 hr 01/02/22 01/02/22 01/02/22 02:59 03:00 03:00 WBC 6.4 RBC 3.95 L Hgb 12.1 Hct 37.0 MCV 93.7 MCH 30.6 MCHC 32.7 RDW Std Deviation 59.2 H RDW Coeff of Liset 17.1 H Plt Count 251 MPV 9.1 Immature Gran % (Auto) 0.800 Neut % (Auto) 70.9 H Lymph % (Auto) 17.8 L Potter % (Auto) 8.8 Eos % (Auto) 1.1 Baso % (Auto) 0.6 Absolute Neuts (auto) 4.5 Absolute Lymphs (auto) 1.13 Nucleated RBC % 0 PT 14.3 INR 1.1 APTT 25.3 Sodium Potassium Chloride Carbon Dioxide Anion Gap BUN Creatinine Estim Creat Clear Calc Est GFR (MDRD) Af Amer Est GFR (MDRD) Non-Af BUN/Creatinine Ratio Glucose Calcium Troponin I High Sens POC Glucose 154 H 01/02/22 03:00 WBC RBC Hgb Hct MCV MCH MCHC RDW Std Deviation RDW Coeff of Liset Plt Count MPV Immature Gran % (Auto) Neut % (Auto) Lymph % (Auto) Potter % (Auto) Eos % (Auto) Baso % (Auto) Absolute Neuts (auto) Absolute Lymphs (auto) Nucleated RBC % PT INR APTT Sodium 134 L Potassium 3.0 L Chloride 102 Carbon Dioxide 24.0 Anion Gap 8 BUN 13 Creatinine 0.60 Estim Creat Clear Calc 29.54 Est GFR (MDRD) Af Amer 121 Est GFR (MDRD) Non-Af 100 BUN/Creatinine Ratio 21.6 H Glucose 153 H Calcium 8.2 L Troponin I High Sens 23 POC Glucose Radiography Chest X-Ray - ED: 1 View, Read by ED Physician, Read by Radiologist and No Acute Disease Diagnostic Testing: Clinical Impression(s) from Imaging Studies Brain CT 01/02/22 02:39 IMPRESSION: 1. No acute intracranial abnormalities. 2. Age-related changes. N.B. : The above Results were Read Back by Will Valenzuela MD to Dr. Roderick Schwiger, DO, and understanding confirmed on 01/02/2022 03:01:31 (ET). Electronically Signed: Will Valenzuela MD at 3:01 EST Reading Location ID and State: [facility] / [place] Tel , Service support , ADDENDUM: 01/02/22 0308 IMPRESSION: 1. No acute intracranial abnormalities. 2. Age-related changes. N.B. : The above Results were Read Back by Will Valenzuela MD to Dr. Roderick Trinh, DO, and understanding confirmed on 01/02/2022 03:01:31 (ET). Electronically Signed: Will Valenzuela MD at 3:01 EST Reading Location ID and State: [facility] / [place] Tel , Service support , Chest X-Ray 01/02/22 02:39 IMPRESSION: No acute findings in the chest. Electronically Signed: Will Valenzuela MD at 3:53 EST Reading Location ID and State: [facility] / [place] Tel , Service support , Head/Neck CTA 01/02/22 02:40 IMPRESSION: 1. No large vessel occlusion, dissection, or other acute arterial abnormality identified on this CTA head/neck exam. 2. Moderate, 60% stenosis of the proximal right internal carotid artery. 3. Moderate stenosis in the P1 segment of the right posterior cerebral artery, with normal enhancement distally. Electronically Signed: Will Valenzuela MD at 3:18 EST , ADDENDUM: 01/02/22 0326 IMPRESSION: 1. No large vessel occlusion, dissection, or other acute arterial abnormality identified on this CTA head/neck exam. 2. Moderate, 60% stenosis of the proximal right internal carotid artery. 3. Moderate stenosis in the P1 segment of the right posterior cerebral artery, with normal enhancement distally. N.B. : The above Results were Read Back by Will Valenzuela MD to Dr. Roderick Trinh DO, and understanding confirmed on 01/02/2022 03:19:10 (ET). Electronically Signed: Will Valenzuela MD at 3:18 EST , EKG Initial EKG: Attestation: I personally reviewed and interpreted this EKG as follows: Interpretation: Sinus Rhythm (92) and No Acute Injury Pattern Prior EKG tracings: available for review Prior: Unchanged (12/10/2012) Stroke Documentation Questions Stroke Team Activated: Yes Reviewed Inclusion/Exclusion criteria: Yes Was Patient considered for Endovascular Intervention?: No-CTA negative, determined not to be an endovascular candidate IV Alteplase (t-PA) Administered: No Discharge Plan Dx/Rx/DC Orders Clinical Impression: Stroke, Benign hypertension Disposition Disposition: Acute Care Hospital [facility]
--- NOTE | 2022-01-02 02:39 | CT_ITS ---
EXAM: CT HEAD WITHOUT INTRAVENOUS CONTRAST CLINICAL INDICATION: Neuro deficit, acute, stroke suspected TECHNIQUE: Multiple axial images were obtained of the head without intravenous contrast. This CT exam was performed using one or more of the following dose reduction techniques: automated exposure control, adjustment of the mA and/or kV according to patient size, and/or use of iterative reconstruction technique. This report was created using [employer] report generation technology. COMPARISON: None. FINDINGS: BRAIN AND EXTRA-AXIAL SPACES: Diffuse cerebral volume loss. Periventricular small vessel ischemic changes. No intra- or extra-axial hemorrhage. No intracranial mass or mass effect. Posterior fossa structures are unremarkable. No hydrocephalus. Basal cisterns are patent. BONES/JOINTS: Unremarkable. No discrete lytic or blastic abnormalities. VASCULATURE: Vascular calcifications. SINUSES: Unremarkable as visualized. Clear. MASTOID AIR CELLS: Unremarkable. Clear. ORBITS: Visualized globes, extraocular muscles, optic nerves and retrobulbar fat appear unremarkable. ASPECTS: 10 CT/STROKE Brain/Head without Cont IMPRESSION: 1. No acute intracranial abnormalities. 2. Age-related changes. N.B. : The above Results were Read Back by Will Valenzuela MD to Dr. Roderick Trinh DO, and understanding confirmed on 01/02/2022 03:01:31 (ET). Electronically Signed: Will Valenzuela MD at 3:01 EST ,
--- NOTE | 2022-01-02 02:40 | CT_ITS ---
We are attempting to reach an attending provider to discuss findings. An addendum with communication details will be sent when the communication is complete. EXAM: CT ANGIOGRAPHY HEAD AND NECK WITH INTRAVENOUS CONTRAST CLINICAL INDICATION: Neuro deficit, acute, stroke suspected TECHNIQUE: [place] [facility] [place]/head and neck CT angiography protocol performed with intravenous contrast. This CT exam was performed using one or more of the following dose reduction techniques: automated exposure control, adjustment of the mA and/or kV according to patient size, and/or use of iterative reconstruction technique. This report was created using [employer] report [employer] technology. MIP reconstructed images were created and reviewed. CONTRAST: IV 100mL [id number] COMPARISON: None. FINDINGS: HEAD: RIGHT ANTERIOR CEREBRAL ARTERY: Unremarkable. No significant stenosis at the visualized segments. Anterior communicating artery is present. No aneurysm. RIGHT MIDDLE CEREBRAL ARTERY: Unremarkable. No significant stenosis at the visualized segments. No aneurysm. RIGHT POSTERIOR CEREBRAL ARTERY: Moderate stenosis in the P1 segment of the right posterior cerebral artery, with normal enhancement distally. No aneurysm. RIGHT INTRACRANIAL INTERNAL CAROTID ARTERY: Unremarkable. No significant stenosis. No dissection or occlusion. RIGHT INTRACRANIAL VERTEBRAL ARTERY: Small, normal variant, terminating as the right PICA. No significant stenosis. No dissection or occlusion. LEFT ANTERIOR CEREBRAL ARTERY: Unremarkable. No significant stenosis at the visualized segments. No aneurysm. LEFT MIDDLE CEREBRAL ARTERY: Unremarkable. No significant stenosis at the visualized segments. No aneurysm. LEFT POSTERIOR CEREBRAL ARTERY: Unremarkable. No occlusion or significant stenosis. No aneurysm. LEFT INTRACRANIAL INTERNAL CAROTID ARTERY: Unremarkable. No significant stenosis. No dissection or occlusion. LEFT INTRACRANIAL VERTEBRAL ARTERY: Dominant, providing the main supply to the basilar artery. No significant stenosis. No dissection or occlusion. BASILAR ARTERY: Unremarkable. No significant stenosis. No aneurysm. OTHER VASCULATURE: No vascular malformation. NECK: RIGHT COMMON CAROTID ARTERY: Unremarkable. No significant stenosis. No dissection or occlusion. RIGHT EXTRACRANIAL INTERNAL CAROTID ARTERY: Moderate, 60% stenosis of the proximal right internal carotid artery. No dissection or occlusion. RIGHT EXTERNAL CAROTID ARTERY: Unremarkable. No occlusion. RIGHT EXTRACRANIAL VERTEBRAL ARTERY: Unremarkable. No significant stenosis. No dissection or occlusion. LEFT COMMON CAROTID ARTERY: Unremarkable. No significant stenosis. No dissection or occlusion. LEFT EXTRACRANIAL INTERNAL CAROTID ARTERY: Unremarkable. No significant stenosis. No dissection or occlusion. LEFT EXTERNAL CAROTID ARTERY: Dominant. No occlusion. LEFT EXTRACRANIAL VERTEBRAL ARTERY: Unremarkable. No significant stenosis. No dissection or occlusion. GREAT VESSELS OF AORTIC ARCH: Unremarkable as visualized. Normal anatomy, patent. LUNG APICES: Unremarkable as visualized. HEAD and NECK: BONES/JOINTS: Unremarkable. No discrete lytic or blastic abnormalities. SOFT TISSUES: Unremarkable. CAROTID STENOSIS REFERENCE USING NASCET CRITERIA: % ICA stenosis = (1 - narrowest ICA diameter/diameter of distal cervical ICA) x 100. Mild - <50% stenosis. Moderate - 50-69% stenosis. Severe - 70-94% stenosis. Near occlusion - 95-99% stenosis. Occluded - 100% stenosis. CT/STROKE CTA Head AND Neck W/Con IMPRESSION: 1. No large vessel occlusion, dissection, or other acute arterial abnormality identified on this CTA head/neck exam. 2. Moderate, 60% stenosis of the proximal right internal carotid artery. 3. Moderate stenosis in the P1 segment of the right posterior cerebral artery, with normal enhancement distally. Electronically Signed: Will Valenzuela MD at 3:18 EST ,
[2022-01-02 03:13] LABS: Absolute Lymphocyte Count 1.13 X10^3/uL (0.83-4.51); Absolute Neutrophil Count 4.5 X10^3/uL (2.0-7.7); Basophil# 0.04 X10^3/uL; Basophil% 0.6 % (0-1); Eosinophil# 0.07 X10^3/uL; Eosinophils% 1.1 % (0-5); Hemoglobin 12.1 g/dL (12.0-15.0); Lymphocyte # 1.13 X10^3/ul (0.83-4.51); Lymphocyte % 17.8 % (19-41); Mean Corp Hgb Conc 32.7 g/dL (32-36); Mean Corpuscular Hgb 30.6 pg (27.0-32.0); Mean Corpuscular Volume 93.7 fL (81-99); Mean Platelet Vol. 9.1 fl (6.2-12.0); Monocyte# 0.56 X10^3/uL; Monocyte% 8.8 % (0-10); NRBC Flagged by Analyzer 0 % (0-5); Neutrophil % 70.9 % (47-70); Platelet Count 251 K/mm3 (150-450); RBC Distribution Width CV 17.1 % (11.6-14.6); RBC Distribution Width SD 59.2 fl (35.1-43.9); Red Blood Count 3.95 M/mm3 (4.2-5.4); White Blood Count 6.4 K/mm3 (4.4-11.0)
[2022-01-02 03:17] LABS: International Normalized Ratio 1.1; Partial Thromboplast Time 25.3 Seconds (24.1-36.2); Prothrombin Time (Protime)PT. 14.3 SECONDS (11.7-14.9)
[2022-01-02 03:21] LABS: Bedside Glucose 154 mg/dL (74-106)
[2022-01-02 03:28] LABS: Anion Gap 8 (5-15); BUN 13 mg/dL (7-18); BUN/Creat Ratio 21.6 RATIO (10-20); Calcium,Total 8.2 mg/dL (8.5-10.1); Chloride 102 mmol/L (98-107); EST Glomerular Filtration Rate 100 mL/min (>60); Est Glom Filt Rate - Afr Amer 121 mL/min (>60); Estimated Creatinine Clearance 29.54 ml/min; Glucose 153 mg/dL (74-106); Sodium Level 134 mmol/L (136-145); Troponin-I HS 23 pg/mL (3.0-54.0)
--- NOTE | 2022-01-02 04:10 | HP.PCM.HOS_ITS ---
HPI - General General Date of Admission: 01/02/22 Date of Service: 01/02/22 Chief Complaint: Paresthesia HPI Narrative DARIAN DOUGLAS, is a 86 F with a significant history of hypertension and hyperlipidemia who presents to the emergency department with paresthesia of her right upper extremity and the right lower extremity. Her symptoms started about 2 and half hours prior to presentation. Also, she complains of some weakness in same extremity. Associated with her symptoms is nausea. Of note patient had a right hip nailing on November 25, 2021 reportedly at [place]. Thereafter she spent some time on the [facility]. Also recently she had COVID and influenza. [facility] Medical History Back problem Bone fracture Breast lump Cataract Fractured shoulder GERD (gastroesophageal reflux disease) High blood pressure Osteoporosis Osteoporosis Thyroid disease Home Medications prednisone 10 mg tablet 2.5 mg PO DAILY 01/08/13 [History Last Taken Unknown] ergocalciferol (vitamin D2) 1,250 mcg (50,000 unit) capsule (Vitamin D2) 50,000 unit PO SA 06/28/17 [History Last Taken Unknown] levothyroxine 88 mcg tablet 88 mcg PO DAILY 06/28/17 [History Last Taken Unknown] amlodipine 10 mg tablet 10 ea PO DAILY 06/07/21 [History Last Taken Unknown] avastin moblwl2 1 insert subcut QWEEK 06/07/21 [History Last Taken Unknown] ivig fusion 90 mg IV QWEEK 06/07/21 [History Last Taken Unknown] lutein 40 mg capsule 40 mg PO DAILY 06/07/21 [History Last Taken Unknown] omeprazole 10 mg capsule,delayed release 10 ea PO DAILY 06/07/21 [History Last Taken Unknown] pravastatin 40 mg tablet (Pravachol) 20 mg PO DAILY 06/07/21 [History Last Taken Unknown] calcitriol 0.5 mcg capsule 2 mcg PO DAILY 01/02/22 [History Last Taken Unknown] leucovorin calcium 15 mg tablet mg 01/02/22 [History Last Taken Unknown] methotrexate sodium 2.5 mg tablet mg 01/02/22 [History Last Taken Unknown] Allergy/AdvReac Type Severity Reaction Status Date / Time abaloparatide [From Tymlos] AdvReac Severe vomitting Verified 01/02/22 02:34 Family History (Updated 06/07/21 @ 14:28 by Jeane Ochoa) Other CVA (cerebral vascular accident) Hypertension Osteoporosis Thyroid disorder Surgical History H/O spinal fusion History of total left knee replacement (TKR) Social History Smoking Status: Never smoker what type of physical activity do you participate in: other ROS ROS Narrative Pertinent positives and pertinent negatives as noted in HPI. All other systems were reviewed and are negative Vital Signs Vital Signs Vital Signs: 01/02/22 02:27 01/02/22 02:47 01/02/22 02:39 Temperature 97.2 F L 97.2 F L Temperature Source Temporal Temporal Pulse Rate 89 89 Respiratory Rate 18 18 Blood Pressure 174/93 H 174/93 H Blood Pressure Mean 120 120 Pulse Ox 97 97 Oxygen Delivery Method Room Air Room Air Room Air 01/02/22 03:09 01/02/22 03:30 01/02/22 04:00 Temperature 97 F L Temperature Source Temporal Pulse Rate 87 88 91 Respiratory Rate 18 17 20 H Blood Pressure 168/94 H 160/100 H 155/90 H Blood Pressure Mean 118 120 111 Pulse Ox 97 97 98 Oxygen Delivery Method Room Air Room Air Room Air Weight Weight: 67.4 kg Body Mass Index (BMI) 29.0 Physical Exam Narrative Physical exam: General: Well-nourished, well-developed. Head: Normocephalic, atraumatic, no tenderness Eyes: Vision is grossly intact. EOMI ENT, no trauma, moist mucous membranes, no rhinorrhea Neck: Nontender, full range of motion CVS: Regular rate and rhythm. S1-S2 present. No murmur, gallop or rub. Respiratory : clear to auscultation bilaterally, chest wall nontender, no wheezing Abdomen: Soft, nontender, nondistended, normal bowel sounds, no masses : Deferred Back: Nontender, no CVA tenderness. Extremities: Nontender full range of motion, no trauma Skin: Normal color, no trauma, abrasions Neuro: Alert, oriented, cranial nerves II through XII grossly intact. Strength in right upper extremity 4 out of 5. Strength in left upper and left lower e xtremity 5 out of 5. Strength in right lower extremity 3 out of 5 (states that it is her bad leg and she uses assistive device to walk). Mild dysmetria with [id number] test on the right side. No dysmetria with [id number] test on the left side. Psychiatry: Normal mood. Normal affect. Not depressed. Not anxious. Results Lab / Micro Data Result Diagrams: 01/02/22 03:00 01/02/22 03:00 Labs: Laboratory Results - last 24 hr 01/02/22 02:59: POC Glucose 154 H 01/02/22 03:00: WBC 6.4, RBC 3.95 L, Hgb 12.1, Hct 37.0, MCV 93.7, MCH 30.6, MCHC 32.7, RDW Std Deviation 59.2 H, RDW Coeff of Liset 17.1 H, Plt Count 251, MPV 9.1, Immature Gran % (Auto) 0.800, Neut % (Auto) 70.9 H, Lymph % (Auto) 17.8 L, [place] % (Auto) 8.8, Eos % (Auto) 1.1, Baso % (Auto) 0.6, Absolute Neuts (auto) 4.5, Absolute Lymphs (auto) 1.13, Nucleated RBC % 0 01/02/22 03:00: PT 14.3, INR 1.1, APTT 25.3 01/02/22 03:00: Sodium 134 L, Potassium 3.0 L, Chloride 102, Carbon Dioxide 24.0, Anion Gap 8, BUN 13, Creatinine 0.60, Estim Creat Clear Calc 29.54, Est GFR (MDRD) Af Amer 121, Est GFR (MDRD) Non-Af 100, BUN/Creatinine Ratio 21.6 H, Glucose 153 H, Calcium 8.2 L, Troponin I High Sens [address] 01/02/22 02:39 IMPRESSION: 1. No acute intracranial abnormalities. 2. Age-related changes. N.B. : The above Results were Read Back by Will Valenzuela MD to Dr. Roderick Tirnh DO, and understanding confirmed on 01/02/2022 03:01:31 (ET). Electronically Signed: Will Valenzuela MD at 3:01 EST Reading Location ID and State: Critical access hospital / [employer] , Service support , ADDENDUM: 01/02/22 0308 IMPRESSION: 1. No acute intracranial abnormalities. 2. Age-related changes. N.B. : The above Results were Read Back by Will Valenzuela MD to Dr. Roderick Trinh DO, and understanding confirmed on 01/02/2022 03:01:31 (ET). Electronically Signed: Will Valenzuela MD at 3:01 EST Reading Location ID and State: Critical access hospital [facility] Tel , Service support , Chest X-Ray 01/02/22 02:39 IMPRESSION: No acute findings in the chest. Electronically Signed: Will Valenzuela MD at 3:53 EST Reading [facility] , Head/Neck CTA 01/02/22 02:40 IMPRESSION: 1. No large vessel occlusion, dissection, or other acute arterial abnormality identified on this CTA head/neck exam. 2. Moderate, 60% stenosis of the proximal right internal carotid artery. 3. Moderate stenosis in the P1 segment of the right posterior cerebral artery, with normal enhancement distally. Electronically Signed: Will Valenzuela MD at 3:18 EST Reading Location ID and State: Critical access hospital / [employer] , Service support , ADDENDUM: 01/02/22 0326 IMPRESSION: 1. No large vessel occlusion, dissection, or other acute arterial abnormality identified on this CTA head/neck exam. 2. Moderate, 60% stenosis of the proximal right internal carotid artery. 3. Moderate stenosis in the P1 segment of the right posterior cerebral artery, with normal enhancement distally. N.B. : The above Results were Read Back by Will Valenzuela MD to Dr. Roderick Schwiger, DO, and understanding confirmed on 01/02/2022 03:19:10 (ET). Electronically Signed: Will Valenzuela MD at 3:18 EST , Assessment & Plan Assessment/Plan (1) Stroke-like symptoms: (2) Benign hypertension: PLAN: Plan Stroke-like symptoms Serial NINDS NIH Scale ordered Impression of head CT by radiology: No acute intracranial abnormalities. Age- related changes. Chest CT image was visualized and independently interpreted. I agree with radiologist interpretation. Head and neck CTA with 60% stenosis of the proximal right internal carotid artery Lipid profile and A1c ordered. Physical therapy, occupational therapy to work with patient. N.p.o. until bedside swallow eval. Daily aspirin ordered. Continue home dose of pravastatin and if LDL is not optimized escalate therapy. Permissive hypertension. Control blood pressure with labetalol for systolic blood pressure of more than 220 or diastolic blood pressure of more than 120. Patient reports agoraphobia and is unwilling to do MRI. Discussed with patient that anxiolytics can be given so she can tolerate MRI. However patient refuses. Echocardiogram ordered. Hypokalemia Potassium level on presentation was 3.0. Replace. Trend BMP. History of hypertension Elevated blood pressures on presentation. Home blood pressure medication held secondary to permissive hypertension. Trend. Hypothyroidism Stable Hypocalcemia Calcium level of 8.2. Trend BMP. DVT prophylaxis: SCDs Charges/Coding Visit Charges OBSV E&M: 80012 Initial observation care L3
--- NOTE | 2022-01-02 04:56 | ECHOD_ITS ---
Reason For Study: TIA/CVA Procedure This was a 2D Doppler, Color Flow transthoracic echocardiogram. Patient scanned in fowlers position due to nausea. Exam performed portable in patient room. Left Ventricle Normal LV size. Left ventricular systolic function is normal. The estimated ejection fraction is 65 %. No regional wall motion abnormalities noted. Right Ventricle Normal RV size. Normal systolic function. Atria Normal left atrium. Normal right atrium. Mitral Valve There is moderate mitral annular calcification. Tricuspid Valve Normal tricuspid valve. Mild tricuspid valve insufficiency. Pulmonary artery systolic pressure is 30 mmHg. Aortic Valve Trisinus/trileaflet aortic valve. Mild focal aortic valve calcification. Pulmonic Valve Normal pulmonic valve. Great Vessels Normal aortic root. The pulmonary artery is normal size. Normal inferior vena cava. Pericardium/Pleural No pericardial effusion. MMode/2D Measurements & Calculations Ao root diam: 3.9 cm LAV(MOD-bp): 56.2 ml LVAd ap4: 20.3 cm2 LAV(MOD-bp) Indexed: 34.9 ml/m2 LVLd ap4: 7.1 cm LAV(MOD-sp2): 50.8 ml EDV(MOD-sp4): 49.4 ml LAV(MOD-sp4): 54.8 ml EDV(sp4-el): 49.6 ml LVAs ap4: 9.6 cm2 LVLs ap4: 5.6 cm ESV(MOD-sp4): 14.7 ml ESV(sp4-el): 14.0 ml EF(MOD-sp4): 70.2 % EF(sp4-el): 71.8 % SV(MOD-sp4): 34.7 ml SV(sp4-el): 35.6 ml LA A4 area: 19.1 cm2 LA dimension(2D): 4.3 cm Time Measurements MV dec time: 0.22 sec Doppler Measurements & Calculations MV E max [place]: 87.8 cm/sec Lat Peak E' [place]: 8.3 cm/sec Med Peak E' [place]: 5.1 cm/sec MV A max [place]: 188.0 cm/sec E/E' lat: 10.6 E/E' med: 17.2 MV E/A: 0.47 MV V2 max: 180.2 cm/sec Ao V2 max: 142.8 cm/sec MV max P.0 mmHg MV dec slope: 405.3 cm/sec2 Ao max P.7 mmHg MV V2 mean: 92.9 cm/sec Ao V2 mean: 96.9 cm/sec MV mean P.3 mmHg Ao mean P.6 mmHg MV V2 VTI: 37.6 cm Ao V2 VTI: 26.1 cm AV (velocity ratio): 1.1 LV V1 max: 131.1 cm/sec TR max [place]: 263.5 cm/sec LV V1 max P.9 mmHg TR max P.8 mmHg LV V1 mean P.9 mmHg LV V1 mean: 93.9 cm/sec LV V1 VTI: 28.1 cm ECHO/Echo Complete Interpretation Summary Normal LV size. Left ventricular systolic function is normal. The estimated ejection fraction is 65 %. There is moderate mitral annular calcification. Pulmonary artery systolic pressure is 30 mmHg. Ordering Physician: Jeronimo Mooney Referring Physician: Catia Christian Performed By: Lora Centeno RCS
[2022-01-02 05:14] LABS: Cholesterol 143 mg/dL (200); High Density Lipoprotein 47 mg/dL; Triglycerides 67 mg/dL; Very Low Density Lipoprotein 13 mg/dL (5-40)
[2022-01-02] MEDS: Ondansetron 4 MG/2 ML Vial IV ×2 (05:21→08:23)
[2022-01-02] MEDS: Potassium Chloride 40 MEQ in 0.9% Normal Saline 1,000 ML 75 MEQ IV ×2 (06:16→20:58)
[2022-01-02 06:50] LABS: Bedside Glucose 140 mg/dL (74-106)
[2022-01-02 08:10] LABS: Hemoglobin A1c 5.2 % (3.8-5.6)
--- NOTE | 2022-01-02 08:16 | MRI_ITS ---
We are attempting to reach an attending provider to discuss findings. An addendum with communication details will be sent when the communication is complete. EXAM: MR HEAD WITHOUT INTRAVENOUS CONTRAST CLINICAL INDICATION: Rule out stroke. TECHNIQUE: Multiplanar and multisequence MR images of the brain were obtained without intravenous contrast. This report was created using Transave report generation technology. COMPARISON: CT head without contrast and CTA head with contrast 01/02/2022. FINDINGS: BRAIN AND EXTRA-AXIAL SPACES: Midline linear diffusion restriction the upper medulla is most in keeping with acute ischemic infarction. Multiple T2 FLAIR hyperintensity foci in the white matter of both cerebral hemispheres are chronic white matter ischemic changes. No intra- or extra-axial hemorrhage. Posterior fossa structures are unremarkable. Ventricles are appropriate for age. No hydrocephalus. Basal cisterns are patent. SELLA: Unremarkable. Normal sella turcica, pituitary gland, infundibular stalk, optic chiasm and hypothalamus. AUDITORY SYSTEM: Unremarkable. The internal auditory canals are patent. BONES/JOINTS: Unremarkable. No discrete lytic or blastic abnormalities. SINUSES: Unremarkable as visualized. Clear. MASTOID AIR CELLS: Unremarkable as visualized. Clear. ORBITS: Unremarkable as visualized. Both globes, extraocular muscles, optic nerves and retrobulbar fat appear unremarkable. VASCULATURE: Unremarkable as visualized. Normal flow voids in the major intracranial circulation. MRI/Brain without Contrast IMPRESSION: 1. Acute linear ischemic infarction in the midline upper medulla oblongata. 2. Chronic white matter ischemic changes in both cerebral hemispheres. Electronically Signed: Troy Grant MD at 13:29 EST ,
[2022-01-02] MEDS: 0.9% Saline Lock 10 ML Syringe IV ×2 (08:23→12:01)
[2022-01-02] MEDS: Aspirin 81 MG TAB.CHEW PO (10:11)
[2022-01-02] MEDS: Pantoprazole Sodium 20 MG Tablet PO (10:12)
[2022-01-02] MEDS: predniSONE 5 MG Tablet 2.5 MG PO (10:12)
[2022-01-02] MEDS: Acetaminophen 325 MG Tablet 650 MG PO (10:46)
[2022-01-02] MEDS: LORazepam 2 MG/ML Syringe 1 MG IV (12:01)
--- NOTE | 2022-01-02 15:14 | CASEMGMT ---
SW completed a PHQ 9 with patient as she had a Stroke. Patient scored a 7 which indicates mild depression. Patient and her daughters explained patient is normally very happy and active. However, patient recently has had a lot happen. Patient had hip surgery, [facility]OV[facility]BS[facility], and now this. Tonya Alfonso HAT MODEL JOSIE
--- NOTE | 2022-01-02 15:17 | CASEMGMT ---
Physician informed SW that patient will need placement. This SW went to patient's room. SW introduced self. SW provided them with a list of?snf facility providers including quality and resource use data and consistent with patient?s preferred geographic region, medical needs, and insurance network were provided [facility]. [facility] first choice is [facility]. SW spoke with Yulisa and she would have a bed for patient. This SHAYNA and SHAYNA Gomez went to patient's room. SW let them know TCU will have a bed for patient. Plan: d/c to [facility] under skilled level of care pending insurance approval. Tonya Alfonso LEGAL DOCUMENT SPECIALIST JOSIE
--- NOTE | 2022-01-02 18:48 | PN.HOSP_ITS ---
Subjective Subjective Patient was seen and examined today, she still complains of overall weakness, her MRI today showed an acute linear ischemic infarction in the midline upper medulla oblongata. Patient's echocardiogram was unremarkable. Objective Data Objective Data Vital Signs: Vital Signs Temp Pulse Resp BP Pulse Ox O2 Del Method O2 Flow Rate 97.2 F L 104 H 18 147/96 H 96 Room Air 2 01/02/22 18:00 01/02/22 18:00 01/02/22 18:00 01/02/22 18:00 01/02/22 18:00 01/02/22 18:00 01/02/22 12:57 Oxygen Flow Rate (L/min) 2 Oxygen Delivery Method Room Air Weight: 64.3 kg Body Mass Index (BMI) 27.6 Intake & Output: Intake and Output for Last 24 Hours 12/31/21 01/01/22 01/02/22 23:59 23:59 23:59 Intake Total 800 / 800 Output Total 600 / 600 Balance 200 / 200 Lab / Micro Data Result Diagrams: 01/02/22 03:00 01/02/22 03:00 Labs: Laboratory Results - last 24 hr 01/02/22 02:59: POC Glucose 154 H 01/02/22 03:00: WBC 6.4, RBC 3.95 L, Hgb 12.1, Hct 37.0, MCV 93.7, MCH 30.6, MCHC 32.7, RDW Std Deviation 59.2 H, RDW Coeff of Liset 17.1 H, Plt Count 251, MPV 9.1, Immature Gran % (Auto) 0.800, Neut % (Auto) 70.9 H, Lymph % (Auto) 17.8 L, [place] % (Auto) 8.8, Eos % (Auto) 1.1, Baso % (Auto) 0.6, Absolute Neuts (auto) 4.5, Absolute Lymphs (auto) 1.13, Nucleated RBC % 0 01/02/22 03:00: PT 14.3, INR 1.1, APTT 25.3 01/02/22 03:00: Sodium 134 L, Potassium 3.0 L, Chloride 102, Carbon Dioxide 24.0, Anion Gap 8, BUN 13, Creatinine 0.60, Estim Creat Clear Calc 29.54, Est GFR (MDRD) Af Amer 121, Est GFR (MDRD) Non-Af 100, BUN/Creatinine Ratio 21.6 H, Glucose 153 H, Calcium 8.2 L, Troponin I High Sens 23 01/02/22 03:00: Triglycerides 67, Cholesterol 143, LDL Cholesterol 83, VLDL Cholesterol 13, HDL Cholesterol 47 01/02/22 03:00: Hemoglobin A1c 5.2 01/02/22 05:42: POC Glucose 140 H Radiography Diagnostic Testing: Radiology Impression Brain CT 01/02/22 02:39 IMPRESSION: 1. No acute intracranial abnormalities. 2. Age-related changes. N.B. : The above Results were Read Back by Will Valenzuela MD to Dr. Roderick Trinh DO, and understanding confirmed on 01/02/2022 03:01:31 (ET). Electronically Signed: Will Valenzuela MD at 3:01 EST Reading Location ID and State: [facility] [place] / [place] Tel , Service support , ADDENDUM: 01/02/22 0308 IMPRESSION: 1. No acute intracranial abnormalities. 2. Age-related changes. N.B. : The above Results were Read Back by Will Valenzuela MD to Dr. Roderick Trinh DO, and understanding confirmed on 01/02/2022 03:01:31 (ET). Electronically Signed: Will Valenzuela MD at 3:01 EST Reading Location ID and State: [facility] / [place] Tel , Service support , Chest X-Ray 01/02/22 02:39 IMPRESSION: No acute findings in the chest. Electronically Signed: Will Valenzuela MD at 3:53 EST Reading Location ID and State: [facility] / [place] Tel , Service support , Head/Neck CTA 01/02/22 02:40 IMPRESSION: 1. No large vessel occlusion, dissection, or other acute arterial abnormality identified on this CTA head/neck exam. 2. Moderate, 60% stenosis of the proximal right internal carotid artery. 3. Moderate stenosis in the P1 segment of the right posterior cerebral artery, with normal enhancement distally. Electronically Signed: Will Valenzuela MD at 3:18 EST , ADDENDUM: 01/02/22 0326 IMPRESSION: 1. No large vessel occlusion, dissection, or other acute arterial abnormality identified on this CTA head/neck exam. 2. Moderate, 60% stenosis of the proximal right internal carotid artery. 3. Moderate stenosis in the P1 segment of the right posterior cerebral artery, with normal enhancement distally. N.B. : The above Results were Read Back by Will Valenzuela MD to Dr. Roderick Trinh DO, and understanding confirmed on 01/02/2022 03:19:10 (ET). Electronically Signed: Will Valenzuela MD at 3:18 EST , Echocardiogram 01/02/22 04:56 Interpretation Summary Normal LV size. Left ventricular systolic function is normal. The estimated ejection fraction is 65 %. There is moderate mitral annular calcification. Pulmonary artery systolic pressure is 30 mmHg. Ordering Physician: Jeronimo Mooney Referring Physician: Catia Christian Performed By: Lora Centeno RCS Brain MRI 01/02/22 08:16 IMPRESSION: 1. Acute linear ischemic infarction in the midline upper medulla oblongata. 2. Chronic white matter ischemic changes in both cerebral hemispheres. Electronically Signed: Troy Grant MD at 13:29 EST , ADDENDUM: 01/02/22 1432 IMPRESSION: 1. Acute linear ischemic infarction in the midline upper medulla oblongata. 2. Chronic white matter ischemic changes in both cerebral hemispheres. N.B. : The above Results were Read Back by Troy Grant MD to Jina Sellers RN, and understanding confirmed on 01/02/2022 14:25:57 (ET). Electronically Signed: Troy Grant MD at 13:29 EST , Physical Exam Const alert, oriented x3, no apparent distress and average body habitus Constitutional Narrative: Patient appears her stated age General Appearance: cooperative, well kempt and well developed Orientation / Consciousness: awake, oriented to person, oriented to place and oriented to time HEENT normocephalic, head/scalp atraumatic and moist oral mucous membranes Eyes PERRL, EOMs intact bilaterally and conjunctivae normal Neck supple, no JVD, thyroid normal and no carotid bruits General: trachea midline Resp normal respiratory effort, no retractions, no use of accessory muscles and clear to auscultation bilaterally Auscultation: Negative for rales, rhonchi or wheezes Cardio regular rate, regular rhythm, S1 normal heart sound, S2 normal heart sound, no murmurs, no rub and no gallops GI normal to inspection, nondistended, normoactive bowel sounds, soft to palpation, non-tender and non-distended Extremity no clubbing, cyanosis or edema Skin no rashes or lesions noted General Skin Exam: no breakdown Neuro oriented x3, CN's II-XII intact bilaterally and no sensory deficits noted Neuro Narrative: Patient has weakness of her upper and lower extremity on the right as compared with her left upper and lower extremity-3/4 as compared with 4/4 of the left upper and lower extremity Sensorium / Orientation: awake, alert, oriented to person, oriented to place and oriented to time Speech: speech normal Psych affect normal Assessment & Plan Assessment/Plan (1) Stroke: PLAN: Plan 1. Acute ischemic infarction in the midline upper medulla oblongata-PT and OT will continue to see the patient, she is on aspirin and Plavix at this time, she will most likely need short-term placement in a [facility] facility. #2 essential hypertension-patient will remain on her current medications #3 hypothyroidism-patient is on Synthroid #4 gastroesophageal reflux disease-patient is on Protonix Charges/Coding Visit Charges Inpatient E&M: 17158 Subs Hosp L2
[2022-01-02] MEDS: MELATONIN 3 MG TABLET PO (20:39)
[2022-01-02] MEDS: Pravastatin 20 MG Tablet PO (20:39)
[2022-01-03] VITALS (13 sets, daily range): BP systolic 149–164; BP diastolic 76–111; PULSE 76–94; RESP 16–18; TEMP 36.6–36.9; O2SAT 92–97; BMI 27.6
[2022-01-03 06:24] LABS: Absolute Lymphocyte Count 1.11 X10^3/uL (0.83-4.51); Absolute Neutrophil Count 4.6 X10^3/uL (2.0-7.7); Basophil# 0.06 X10^3/uL; Basophil% 0.9 % (0-1); Eosinophil# 0.19 X10^3/uL; Eosinophils% 2.8 % (0-5); Hematocrit 42.8 % (37-47); Hemoglobin 13.7 g/dL (12.0-15.0); Lymphocyte # 1.11 X10^3/ul (0.83-4.51); Lymphocyte % 16.5 % (19-41); Mean Corpuscular Hgb 30.9 pg (27.0-32.0); Mean Corpuscular Volume 96.4 fL (81-99); Mean Platelet Vol. 9.4 fl (6.2-12.0); Monocyte% 10.4 % (0-10); NRBC Flagged by Analyzer 0 % (0-5); Neutrophil # 4.64 X10^3/uL (2.7-7.7); Platelet Count 280 K/mm3 (150-450); RBC Distribution Width CV 17.6 % (11.6-14.6); RBC Distribution Width SD 62.4 fl (35.1-43.9); Red Blood Count 4.44 M/mm3 (4.2-5.4); White Blood Count 6.7 K/mm3 (4.4-11.0)
[2022-01-03] MEDS: Levothyroxine 88 MCG Tablet PO (06:37)
[2022-01-03 06:50] LABS: Anion Gap 6 (5-15); BUN 7 mg/dL (7-18); BUN/Creat Ratio 14.7 RATIO (10-20); Calcium,Total 8.9 mg/dL (8.5-10.1); Chloride 106 mmol/L (98-107); Creatinine, Serum 0.48 mg/dL (0.55-1.02); EST Glomerular Filtration Rate 132 mL/min (>60); Est Glom Filt Rate - Afr Amer 159 mL/min (>60); Estimated Creatinine Clearance 29.54 ml/min; Glucose 104 mg/dL (74-106); Sodium Level 137 mmol/L (136-145)
[2022-01-03] MEDS: predniSONE 5 MG Tablet 2.5 MG PO (08:33)
[2022-01-03] MEDS: Pantoprazole Sodium 20 MG Tablet PO (08:33)
[2022-01-03] MEDS: Aspirin 81 MG TAB.CHEW PO (08:33)
[2022-01-03] MEDS: Potassium Chloride 40 MEQ in 0.9% Normal Saline 1,000 ML 75 MEQ IV (10:45)
--- NOTE | 2022-01-03 15:11 | CASEMGMT ---
Jenifer from TCU said patient was approved. SW notified physician, patient, her family, and RN. All in agreement with d/c plan. Plan: d/c to [facility] under skilled level of care. Tonya GALINDO
--- NOTE | 2022-01-03 15:24 | TREXTCAR_ITS ---
Diet Diet Order/Speech Therapy: 01/02/22 10:12 Diet: Regular - General Food consistency:: Easy to Chew Liquid Consistency:: Regular/Thin Is pt able to select menu?: Yes Diet Comments: No Straws, Distant Supervision Routine Orders/Code Status Code Status: DNRCC-A (no intubation) Therapies Weight Bearing: Full weight bearing Physical Therapy: Eval and Treat Occupational Therapy: Eval and Treat Speech Therapy: Eval and Treat Problem/Diagnosis (1) Stroke: Status: Acute Code(s): I63.9 - Cerebral infarction, unspecified Plan 1. Acute ischemic infarction in the midline upper medulla oblongata-PT and OT will continue to see the patient, she is on aspirin and Plavix at this time, she will most likely need short-term placement in a snf facility. #2 essential hypertension-patient will remain on her current medications #3 hypothyroidism-patient is on Synthroid #4 gastroesophageal reflux disease-patient is on Protonix Allergies/Procedures Done in Hospital Allergies abaloparatide [From Tymlos] Adverse Reaction (Severe, Verified 01/02/22 02:34) vomitting Procedures: 2-D Echocardiogram Type of Care/Length of Stay Estimated LOS: Convalescent Care Less Than 30 days Type of Care Needed: Skilled Rehab Potential: Good Prognosis: Good Additional Orders/Day of Discharge H&P will serve as current which was dated: 01/02/22 Day of Discharge: 01/03/22 Dietary and Speech Recommendations Dietitian Recommendations/Changes: Continue Regular - Easy to chew diet to optimize oral intakes. RD will order 120mL Ensure Plus High Protein 4x with medpass to provide supplemental energy. Discharge Plan Admission Admit Date/Time: 01/02/22 14:49 Primary Reason for Your Visit: acute stroke Attending Provider: Fer Schneider Primary Care Provider: Catia Christian Consulting Providers: Jeronimo Mooney Discharge Orders/Prescriptions Prescriptions: New acetaminophen [Tylenol] 325 mg Tablet 650 mg PO Q6H PRN PRN (Reason: Pain Score 1-10) Qty: 0 0RF pantoprazole 20 mg Tablet,Delayed Release (Dr/Ec) 20 mg PO DAILY Qty: 0 0RF aspirin 81 mg Tablet,Chewable 81 mg PO BREAKFAST Qty: 0 0RF calcitriol 0.25 mcg Capsule 2 mcg PO DAILY Qty: 0 0RF atorvastatin [Lipitor] 40 mg tablet 40 mg PO DAILY Qty: 1 0RF clopidogrel [Plavix] 75 mg tablet 75 mg PO DAILY Qty: 1 0RF Continued prednisone 10 MG tablet 2.5 mg PO DAILY levothyroxine 88 MCG tablet 88 mcg PO DAILY ergocalciferol (vitamin D2) [Vitamin D2] 50,000 UNIT capsule 50,000 unit PO SA Label Comments: Q 2 WEEKS Rx Instructions: EVERY OTHER WEEK ON SUNDAY methotrexate sodium 2.5 mg tablet 15 mg PO QWEEK Label Comments: Take 6 Tablet(s) Oral once a week Rx Instructions: Pt takes on folic acid 1 mg Tablet 2 mg PO DAILY Discontinued amlodipine 10 mg tablet 10 ea PO DAILY Label Comments: TAKE 1 TABLET BY MOUTH EVERY DAY omeprazole 10 mg capsule,delayed release(DR/EC) 10 mg PO DAILY Label Comments: TAKE 1 CAPSULE BY MOUTH EVERY DAY 30 MINUTES BEFORE MORNING MEAL lutein 40 mg capsule 40 mg PO DAILY Rx Instructions: administer with meals pravastatin [Pravachol] 40 mg tablet 40 mg PO QHS Referrals / Follow Up: Catia Christian DO [Primary Care Provider] - Disposition Disposition (needs filled in before D/C Order can be placed): Custodial Facility
--- NOTE | 2022-01-03 15:35 | DS.PCM_ITS ---
Providers Date of Admission: 01/02/22 Date of Discharge: 01/03/22 Primary Care Physician: Dr. Catia Christian DO Reason For Visit: ACUTE CVA Diagnosis Discharge Diagnosis (1) Stroke: Status: Resolved Code(s): I63.9 - Cerebral infarction, unspecified Plan 1. 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 #2 essential hypertension-patient will remain on her current medications #3 hypothyroidism-patient is on Synthroid #4 gastroesophageal reflux disease-patient is on Protonix Medications at Discharge Home Medications prednisone 10 mg tablet 2.5 mg PO DAILY Check with primary doctor 01/08/13 ergocalciferol (vitamin D2) 1,250 mcg (50,000 unit) capsule (Vitamin D2) 50,000 unit PO SA Supplement 06/28/17 levothyroxine 88 mcg tablet 88 mcg PO DAILY Thyroid 06/28/17 folic acid 1 mg tablet 2 mg PO DAILY supplement 01/02/22 methotrexate sodium 2.5 mg tablet 15 mg PO QWEEK Check with primary doctor 01/02/22 acetaminophen 325 mg tablet (Tylenol) 650 mg PO Q6H PRN PRN Pain Score 1-10 #0 tabs 01/03/22 aspirin 81 mg chewable tablet 81 mg PO BREAKFAST Heart 01/03/22 atorvastatin 40 mg tablet (Lipitor) 40 mg PO DAILY Cholesterol 01/03/22 calcitriol 0.25 mcg capsule 2 mcg PO DAILY Supplement 01/03/22 clopidogrel 75 mg tablet (Plavix) 75 mg PO DAILY Blood Thinner 01/03/22 pantoprazole 20 mg tablet,delayed release 20 mg PO DAILY GERD 01/03/22 Hospital Course Operations None Procedures 2-D Echocardiogram Summary of Care Provided Minutes Spent on Discharge: 31 Hospital Course: 86-year-old white female presents to the emergency room at [facility] with numbness and tingling of her left arm and left leg that began 2 and half hours prior to arrival in the ER. Stroke alert was called, CT of the brain was obtained there is no intracranial abnormality, CT of the head and neck was obtained there is noted to be a 60% stenosis of the right proximal internal carotid artery and narrowing of the P1 segment of the posterior cerebral artery. Stroke neurologist evaluated the patient and felt that the patient did not meet criteria for tPA due to low NIH score, patient was admitted to PCU, she was placed on aspirin and a statin as well as Plavix, she was seen by PT and OT as well as speech therapy, an MRI of the brain was performed which showed an acute linear ischemic infarction in the midline upper medulla oblongata. It was recommended that the patient go to an extended care facility for short-term rehab services and the patient agreed. On 01/03/2022, patient was seen and examined: On examination she appeared in good health and spirits, she does not appear to be in any distress. Vital signs as documented. Skin warm and dry and without overt rashes. Neck without JVD, thyroid appears normal, trachea is midline, neck is supple. Lungs clear, normal air movement was noted. Heart exam notable for regular rhythm, normal sounds and absence of murmurs, rubs or gallops. Abdomen unremarkable and without evidence of organomegaly, masses, or abdominal aortic enlargement, bowel sounds are present in all 4 quadrants, no abdominal tenderness was noted. Extremities nonedematous, no cyanosis was noted, no clubbing was noted. Neuro: Cranial nerves II through XII are grossly intact, no focal motor deficits were noted, sensation to light touch and pinprick is intact, motor exam 5/5 throughout. Psych: Patient is alert and oriented x3, she does not appear anxious or depressed, she does not appear agitated. Patient appears stable for transfer to TCU on 01/03/2022 for short-term rehab services. Weight / BMI Weight Weight: 64.3 kg Body Mass Index (BMI) 27.6 ABG / Lab / Microbiology Data Result Diagrams: 01/03/22 05:50 01/03/22 05:50 Laboratory: Laboratory Results - last 24 hr 01/03/22 05:50: WBC 6.7, RBC 4.44, Hgb 13.7, Hct 42.8, MCV 96.4, MCH 30.9, MCHC 32.0, RDW Std Deviation 62.4 H, RDW Coeff of Liset 17.6 H, Plt Count 280, MPV 9.4, Immature Gran % (Auto) 0.400, Neut % (Auto) 69.0, Lymph % (Auto) 16.5 L, [place] % (Auto) 10.4 H, Eos % (Auto) 2.8, Baso % (Auto) 0.9, Absolute Neuts (auto) 4.6, Absolute Lymphs (auto) 1.11, Nucleated RBC % 0 01/03/22 05:50: Sodium 137, Potassium 4.0, Chloride 106, Carbon Dioxide 25.0, Anion Gap 6, BUN 7, Creatinine 0.48 L, Estim Creat Clear Calc 29.54, Est GFR (MDRD) Af Amer 159, Est GFR (MDRD) Non-Af 132, BUN/Creatinine Ratio 14.7, Glucose 104, Calcium 8.9 Radiography Diagnostic Testing: Radiology Impression Echocardiogram 01/02/22 04:56 Interpretation Summary Normal LV size. Left ventricular systolic function is normal. The estimated ejection fraction is 65 %. There is moderate mitral annular calcification. Pulmonary artery systolic pressure is 30 mmHg. Ordering Physician: Jeronimo Mooney Referring Physician: Catia Christian Performed By: Lora Centeno RCS Meaningful Use Info Meaningful Use Diagnoses (Choose all that apply): Ischemic CVA CVA Therapy Assessed for PT,OT and/or ST?: Yes Ischemic Stroke Antithrombotic order at d/c?: Yes Dx of Atrial fib/flutter?: No Anticoagulant at discharge?: Yes Statins at discharge?: Yes Primary Dx Acute Ischemic CVA?: Yes IV tPA ordered during stay?: No Reason IV t-PA not ordered: Treatment not Indicated Discharge Plan Admission Admit Date/Time: 01/02/22 14:49 Primary Reason for Your Visit: acute stroke Attending Provider: Fer Schneider Primary Care Provider: Catia Christian Consulting Providers: Jeronimo Mooney Discharge Orders/Prescriptions Prescriptions: New acetaminophen [Tylenol] 325 mg Tablet 650 mg PO Q6H PRN PRN (Reason: Pain Score 1-10) Qty: 0 0RF Continued prednisone 10 MG tablet 2.5 mg PO DAILY levothyroxine 88 MCG tablet 88 mcg PO DAILY ergocalciferol (vitamin D2) [Vitamin D2] 50,000 UNIT capsule 50,000 unit PO SA Label Comments: Q 2 WEEKS Rx Instructions: EVERY OTHER WEEK ON SUNDAY methotrexate sodium 2.5 mg tablet 15 mg PO QWEEK Label Comments: Take 6 Tablet(s) Oral once a week Rx Instructions: Pt takes on folic acid 1 mg Tablet 2 mg PO DAILY Discontinued amlodipine 10 mg tablet 10 ea PO DAILY Label Comments: TAKE 1 TABLET BY MOUTH EVERY DAY omeprazole 10 mg capsule,delayed release(DR/EC) 10 mg PO DAILY Label Comments: TAKE 1 CAPSULE BY MOUTH EVERY DAY 30 MINUTES BEFORE MORNING MEAL lutein 40 mg capsule 40 mg PO DAILY Rx Instructions: administer with meals pravastatin [Pravachol] 40 mg tablet 40 mg PO QHS No Action atorvastatin [Lipitor] 40 mg tablet 40 mg PO DAILY clopidogrel [Plavix] 75 mg tablet 75 mg PO DAILY pantoprazole 20 mg tablet,delayed release (DR/EC) 20 mg PO DAILY aspirin 81 mg tablet,chewable 81 mg PO BREAKFAST calcitriol 0.25 mcg capsule 2 mcg PO DAILY Referrals / Follow Up: Catia Christian DO [Primary Care Provider] - Disposition Disposition (needs filled in before D/C Order can be placed): [facility] Facility Charges/Coding Visit Charges Inpatient E&M: 02880 Disch Hosp
--- NOTE | 2022-01-03 16:54 | NURSING ---
Report called to Anusha in TCU
== END 2022-01-03 17:53 | disposition skilled nursing facility (03) | DRG 66 ==
LOC: ED 03:56 → PCU 04:21
PROVIDERS: Admitting Provider Hospitalist; Emergency Provider Emergency Medicine; PCP Family Medicine; Visit Provider Internal Medicine
DX: I63.231 Cerebral infarction due to unspecified occlusion or stenosis of right carotid arteries (principal); E03.9 Hypothyroidism, unspecified; K21.9 Gastro-esophageal reflux disease without esophagitis; I10 Essential (primary) hypertension; E87.6 Hypokalemia; R20.2 Paresthesia of skin; E78.5 Hyperlipidemia, unspecified; Z79.899 Other long term (current) drug therapy; Z79.890 Hormone replacement therapy; R29.701 NIHSS score 1
CPT/HCPCS: 36415; 70450; 70496; 70498; 70551; 71045; 80048; 80061; 82962; 83036; 84484; 85025; 85610; 85730; 87811; 92526; 92610; 93005; 93306; 94762; 96361; 96374; 96375; 96376; 97110; 97162; 97166; 97530; 97535; 99221; 99285; J7030; Q9967; A4216; G0378; J2405

== ENCOUNTER 2022-01-03 18:09 | Inpatient (IN) | payer MEDICARE, SELFPAY ==
[2022-01-03 18:15] VITALS: BP 154/91; PULSE 79; RESP 20; TEMP 36.6; O2SAT 93; BMI 27.4
--- NOTE | 2022-01-03 18:46 | HP.PCM_ITS ---
HPI - General General Date of Admission: 01/03/22 Date of Service: 01/04/22 Chief Complaint: Here for rehabilitation. HPI Narrative 01/02/2022 DARIAN DOUGLAS, is a 86 Female who presents to [facility] Emergency Department with numbness/tingling. 01/02/2022 EKG normal sinus rhythm, right atrial enlargement, borderline EKG. Right arm, right leg numbness/tingling for 2.5 hours. Trying to sleep when symptoms started, mild right upper extremity weakness. Stroke alert, CT brain negative. CTA head/neck showed right proximal internal carotid artery 60% stenosis, moderate narrowing of P1 segment posterior cerebral artery. BMP okay, Troponin okay, Chest X-ray okay. Stroke neurologist recommended NO TPA due to low NIHSS score. 01/02/2022 Admit to Hospital. PT/OT/ST for stroke. Aspirin, Pravastatin for stroke. Replace potassium of 3.0. 01/02/2022 Echo Normal LV size. LVSF normal. EF 65%. PASP 30mm HG. 01/02/2022 MRI showed acute stroke. Aspirin, Plavix for stroke. PT/OT recommended SNF. 01/03/2022 Admit to TCU with debility, here for rehabilitation, strengthening, prior to discharge home alone. [facility] Medical History Back problem Bone fracture Breast lump Cataract Fractured shoulder GERD (gastroesophageal reflux disease) High blood pressure Osteoporosis Osteoporosis Thyroid disease Home Medications prednisone 10 mg tablet 2.5 mg PO DAILY Check with primary doctor 01/08/13 [History Last Taken 01/01/22] ergocalciferol (vitamin D2) 1,250 mcg (50,000 unit) capsule (Vitamin D2) 50,000 unit PO SA Supplement 06/28/17 [History Last Taken 12/31/21] levothyroxine 88 mcg tablet 88 mcg PO DAILY Thyroid 06/28/17 [History Last Taken 01/01/22] folic acid 1 mg tablet 2 mg PO DAILY supplement 01/02/22 [History Last Taken Unknown] methotrexate sodium 2.5 mg tablet 15 mg PO QWEEK Check with primary doctor 01/02/22 [History Last Taken Unknown] acetaminophen 325 mg tablet (Tylenol) 650 mg PO Q6H PRN PRN Pain Score 1-10 #0 tabs 01/03/22 [Rx Last Taken Unknown] aspirin 81 mg chewable tablet 81 mg PO BREAKFAST Heart 01/03/22 [History Last Taken Unknown] atorvastatin 40 mg tablet (Lipitor) 40 mg PO DAILY Cholesterol 01/03/22 [History Last Taken Unknown] calcitriol 0.25 mcg capsule 2 mcg PO DAILY Supplement 01/03/22 [History Last Taken Unknown] clopidogrel 75 mg tablet (Plavix) 75 mg PO DAILY Blood Thinner 01/03/22 [History Last Taken Unknown] pantoprazole 20 mg tablet,delayed release 20 mg PO DAILY GERD 01/03/22 [History Last Taken Unknown] Allergy/AdvReac Type Severity Reaction Status Date / Time abaloparatide [From Tymlos] AdvReac Severe vomitting Verified 01/02/22 02:34 Family History Other CVA (cerebral vascular accident) Hypertension Osteoporosis Thyroid disorder Surgical History H/O spinal fusion History of total left knee replacement (TKR) Social History (Updated 01/03/22 @ 18:[address] Clif Babb MD) household members: none Smoking Status: Never smoker alcohol intake: never substance use type: does not use what type of physical activity do you participate in: other Vital Signs Vital Signs Vital Signs: 01/03/22 18:15 Pulse Rhythm Regular Pulse Strength Normal (2+) Respiratory Effort Normal Non-Labored Respiratory Depth Normal Respiratory Pattern Normal Oxygen Delivery Method Room Air Weight Weight: 63.775 kg Body Mass Index (BMI) 27.4 Physical Exam Neuro Neuro Narrative: Flaccid paralysis right upper extremity, right hemiparesis right lower e xtremity. Results Lab / Micro Data Result Diagrams: 01/04/22 05:31 01/04/22 05:31 Assessment & Plan Assessment/Plan (1) Debility: (2) Stroke: (3) Hypokalemia: (4) Stenosis of right internal carotid artery: (5) Vitamin D deficiency: (6) Hypothyroidism: (7) Hypertension: (8) GERD (gastroesophageal reflux disease): (9) Hyperlipidemia: (10) Hyperparathyroidism: PLAN: Plan 86 year old female with below past medical history hospitalized for acute stroke, complicated by right internal carotid artery stenosis, hypokalemia, admitted to TCU with debility, here for rehabilitation, strengthening, prior to discharge home alone. * Debility - PT/OT/ST. * Pain - Tylenol 1000mg q6h prn pain (1-10). * Bowel - senna/colace 1 tablet bid, MOM 30ml daily prn. * Adult immunization - Administer pneumonia vaccine, covid19 vaccine, flu vaccine as appropriate. * DVT prophylaxis - Hold on dual antiplatelet therapy. * Stroke - Aspirin 81mg daily, Plavix 75mg daily thru 02/01/2022. * Hyperlipidemia - Atorvastatin 40mg qhs. * Right internal carotid artery stenosis - Consider vascular surgery once stable. * Nutrition - Ensure Plus 120ml po 4x/day. * Vitamin D deficiency - D2 1.25mg per week. * Rheum - MTX 15mg per week, Folic acid 2mg daily, Prednisone 7.5mg daily. * Hypothyroidism - Levothyroxine 88mcg daily. * GERD - Pantoprazole 20mg daily.
[2022-01-03] MEDS: Ensure Plus High Protein 120 ML LIQUID PO (20:45)
[2022-01-03] MEDS: Senna/Docusate Sodium 1 Tablet PO (20:46)
[2022-01-03] MEDS: Atorvastatin Calcium 40 MG Tablet PO (20:46)
[2022-01-04 05:50] LABS: Absolute Lymphocyte Count 1.33 X10^3/uL (0.83-4.51); Absolute Neutrophil Count 4.8 X10^3/uL (2.0-7.7); Basophil# 0.06 X10^3/uL; Basophil% 0.8 % (0-1); Eosinophil# 0.16 X10^3/uL; Eosinophils% 2.2 % (0-5); Hematocrit 43.5 % (37-47); Hemoglobin 13.9 g/dL (12.0-15.0); Lymphocyte # 1.33 X10^3/ul (0.83-4.51); Lymphocyte % 18.5 % (19-41); Mean Corpuscular Hgb 30.8 pg (27.0-32.0); Mean Corpuscular Volume 96.2 fL (81-99); Mean Platelet Vol. 9.1 fl (6.2-12.0); Monocyte# 0.79 X10^3/uL; NRBC Flagged by Analyzer 0 % (0-5); Neutrophil % 67.1 % (47-70); Platelet Count 292 K/mm3 (150-450); RBC Distribution Width CV 17.2 % (11.6-14.6); RBC Distribution Width SD 61.2 fl (35.1-43.9); Red Blood Count 4.52 M/mm3 (4.2-5.4); White Blood Count 7.2 K/mm3 (4.4-11.0)
[2022-01-04 06:12] LABS: Anion Gap 8 (5-15); BUN 10 mg/dL (7-18); BUN/Creat Ratio 19.3 RATIO (10-20); Calcium,Total 9.2 mg/dL (8.5-10.1); Chloride 104 mmol/L (98-107); Creatinine, Serum 0.52 mg/dL (0.55-1.02); EST Glomerular Filtration Rate 120 mL/min (>60); Est Glom Filt Rate - Afr Amer 145 mL/min (>60); Estimated Creatinine Clearance 29.54 ml/min; Glucose 113 mg/dL (74-106); Potassium 3.7 mmol/L (3.5-5.1); Sodium Level 136 mmol/L (136-145)
[2022-01-04] MEDS: Clopidogrel Bisulfate 75 MG Tablet PO (06:12)
[2022-01-04] MEDS: Levothyroxine 88 MCG Tablet PO (06:12)
[2022-01-04] MEDS: Pantoprazole Sodium 20 MG Tablet PO (06:12)
[2022-01-04] MEDS: Calcitriol 0.25 MCG Capsule 2 MCG PO (06:13)
[2022-01-04] MEDS: Senna/Docusate Sodium 1 Tablet PO ×2 (06:14→17:10)
[2022-01-04] MEDS: Folic Acid 1 MG Tablet 2 MG PO (08:28)
[2022-01-04] MEDS: Aspirin 81 MG TAB.CHEW PO (08:28)
[2022-01-04] MEDS: predniSONE 5 MG Tablet 2.5 MG PO (08:30)
--- NOTE | 2022-01-04 09:27 | NURSING ---
Discussed code status with patient and explained differences in status. Pt reports she wants to be a DNR-CC and form is signed.
[2022-01-04] MEDS: Ensure Plus High Protein 120 ML LIQUID PO ×3 (09:53→22:23)
[2022-01-04] MEDS: Tuberculin,Purif.prot.deriv. 50 TU/ML Vial 0.1 ML ID (09:55)
--- NOTE | 2022-01-04 12:01 | NURSING ---
Manager Linux Note; Activity Asset: Complete
[2022-01-04 14:31] VITALS: BP 156/110; PULSE 112; RESP 18; TEMP 36.1; O2SAT 96
--- NOTE | 2022-01-04 16:11 | CHAPLAIN ---
Type of Pastoral Visit _x__ Initial Visit ___ Follow-up Visit ___ On-call Visit ___ General Patient Visit ___ Spiritual Assessment ___ Family Conference ___ Bereavement ___ Rapid Response ___ Code Blue ___ Other (describe below) Pastoral Care Referral From _x__ Patient ___ Family ___ Nurse ___ Physician ___ Die Cast Operator ___ Swing Tender ___ Other (describe below) Sacrament/Intervention _x__ Active listening ___ Anointing ___ Pentecostal ___ Bereavement ___ Communion ___ Jeanette exploration ___ _x__ Life review _x__ Prayer ___ Reconciliation ___ Sacrament of Sick ___ Supportive presence ___ Wedding ___ Other (describe below) Pastoral Comments met with patient to introduce self and role of support; pt and a title vehicle service attendant in the room; pt gives some life review and mostly of recent health issues; title vehicle service attendant also gives his story and illustrates his help for the care of this patient; pt has good family and friend support per her report and has a life long mandaeism membership; pt is open to visit and prayer
[2022-01-04] MEDS: Magnesium Hydroxide 30 ML UDC PO (17:08)
[2022-01-04] MEDS: amLODIPine 5 MG Tablet PO (18:58)
[2022-01-04] MEDS: Atorvastatin Calcium 40 MG Tablet PO (22:24)
[2022-01-05 06:10] VITALS: BP 148/95; PULSE 78
[2022-01-05] MEDS: Clopidogrel Bisulfate 75 MG Tablet PO (06:16)
[2022-01-05] MEDS: Levothyroxine 88 MCG Tablet PO (06:16)
[2022-01-05] MEDS: Pantoprazole Sodium 20 MG Tablet PO (06:16)
[2022-01-05] MEDS: Methotrexate 2.5 MG Tablet 15 MG PO (06:16)
[2022-01-05] MEDS: Senna/Docusate Sodium 1 Tablet PO ×2 (06:17→17:02)
[2022-01-05] MEDS: amLODIPine 5 MG Tablet PO (06:24)
[2022-01-05] MEDS: Aspirin 81 MG TAB.CHEW PO (08:05)
[2022-01-05] MEDS: predniSONE 5 MG Tablet 2.5 MG PO (08:05)
[2022-01-05] MEDS: Folic Acid 1 MG Tablet 2 MG PO (08:05)
[2022-01-05] MEDS: Polyethylene Glycol 3350 17 GM PACKET 8.5 GM PO (11:48)
--- NOTE | 2022-01-05 11:51 | CASEMGMT ---
Social Work Met with patient to complete initial assessment. Dtr, Natasha, and SO, Chacorat, present in room. Pt granted permission for both to remain for assessment. Verified/updated contacts. Patient has 5 children, 4 of which are still close in relationship. SO and pt have been together for 14 years but do not live together. Pt is recovering from hip fx at the end of November as well. Discussed code status and MOLST form. Pt confirmed DNR-CC. MOLST placed in Dr folder. Educated to [facility] insurance with NRD 01/05 and continued stay is not guaranteed with each review. Pts goal is to return home alone but with SO and children's support. Answered pt's and family's questions. Educated to [facility], insurance coverage for DME, skilled HHC and OP therapy. All appreciative. SW to continue to follow for DC planning and support as needed. Heide Loya, IRONER MACHINE LINE CAMERA OPERATOR
[2022-01-05] MEDS: Ensure Plus High Protein 120 ML LIQUID PO ×3 (13:14→20:39)
[2022-01-05] MEDS: Pneumococcal Vaccine 20 Valent 0.5 ML Syringe IM (13:16)
[2022-01-05 14:47] VITALS: BP 129/89; PULSE 95; RESP 16; TEMP 36.1; O2SAT 108
--- NOTE | 2022-01-05 15:01 | PHA.CONS_ITS ---
TCU RX Drug Regimen Review Subjective: 86 YOF admitted to TCU S/p hospitalization for an acute stroke (no TPA administered, (+) for stroke on MRI). Admitted to TCU for rehabilitation and strengthening prior to DC home alone with support from significant other and children. Objective: Allergies abaloparatide [From Tymlos] Adverse Reaction (Severe, Verified 01/02/22 02:34) vomitting Current Medications Generic Name Dose Route Start Last Admin Trade Name Freq PRN Reason Stop Dose Admin Acetaminophen 1,000 mg 01/03/22 19:01 Acetaminophen 500 Mg Tablet PO Q6H PRN PRN Pain Score 1-10 Amlodipine Besylate 5 mg 01/04/22 17:15 01/05/22 06:24 Amlodipine 5 Mg Tablet PO 5 mg DAILY GOLD Administration Aspirin 81 mg 01/04/22 08:00 01/05/22 08:05 Aspirin 81 Mg Tab.Chew PO 81 mg BREAKFAST GOLD Administration Atorvastatin Calcium 40 mg 01/03/22 22:00 01/04/22 22:24 Atorvastatin Calcium 40 Mg Tablet PO 40 mg QHS GOLD Administration Clopidogrel Bisulfate 75 mg 01/04/22 06:00 01/05/22 06:16 Clopidogrel Bisulfate 75 Mg Tablet PO 02/01/22 23:59 75 mg DAILY GOLD Administration Ergocalciferol 1.25 mg 01/07/22 06:00 Ergocalciferol 1.25 Mg (50, 000 Unit) Capsule PO Sa@0600 GOLD Folic Acid 2 mg 01/04/22 08:00 01/05/22 08:05 Folic Acid 1 Mg Tablet PO 2 mg BREAKFAST GOLD Administration Levothyroxine Sodium 88 mcg 01/04/22 06:00 01/05/22 06:16 Levothyroxine 88 Mcg Tablet PO 88 mcg DAILY GOLD Administration Magnesium Hydroxide 30 ml 01/03/22 18:59 01/04/22 17:08 Magnesium Hydroxide 30 Ml Udc PO 30 ml DAILY PRN Administration Constipation Methotrexate 15 mg 01/05/22 06:00 01/05/22 06:16 Methotrexate 2.5 Mg Tablet PO 15 mg Th@0600 GOLD Administration Nutritional Formula (Lactose Free) 120 ml 01/03/22 22:00 01/05/22 13:14 Ensure Plus High Protein 120 Ml Liquid PO 120 ml 4X/DAY GOLD Administration Pantoprazole Sodium 20 mg 01/04/22 06:00 01/05/22 06:16 Pantoprazole Sodium 20 Mg Tablet PO 20 mg DAILY GOLD Administration Polyethylene Glycol 8.5 gm 01/05/22 08:00 01/05/22 11:48 Polyethylene Glycol 3350 17 Gm Packet PO 8.5 gm DAILY GOLD Administration Prednisone 2.5 mg 01/04/22 08:00 01/05/22 08:05 Prednisone 5 Mg Tablet PO 2.5 mg BREAKFAST GOLD Administration Senna/Docusate Sodium 1 tablet 01/03/22 19:15 01/05/22 06:17 Senna/Docusate Sodium 1 Tablet PO 1 tablet BID GOLD Administration Sodium Chloride 10 - 40 ml 01/03/22 18:40 0.9% Saline Lock 10 Ml Syringe IV UD PRN SALINE FLUSH Tuberculin PPD 0.1 ml 01/11/22 10:00 Tuberculin,Purif.Prot.Deriv. 50 Tu/Ml Vial ID 01/11/22 10:01 X1 ONE Problem List (Last Reviewed 01/03/22 @ 18:[address] Clif Babb MD) Hyperparathyroidism (Acute) Hyperlipidemia (Acute) GERD (gastroesophageal reflux disease) (Acute) Hypertension (Chronic) Hypothyroidism (Acute) Vitamin D deficiency (Acute) Stenosis of right internal carotid artery (Acute) Hypokalemia (Acute) Debility (Acute) Vital Signs Temp Pulse Resp BP Pulse Ox O2 Del Method 97 F L 95 16 129/89 H 108 Room Air 01/05/22 14:47 01/05/22 14:47 01/05/22 14:47 01/05/22 14:47 01/05/22 14:47 01/05/22 14:47 Oxygen Delivery Method Room Air Weight: 63.775 kg Body Mass Index (BMI) 27.4 Sodium 136 mmol/L (136-145) 01/04/22 05:31 Potassium 3.7 mmol/L (3.5-5.1) 01/04/22 05:31 Chloride 104 mmol/L (98-107) 01/04/22 05:31 Carbon Dioxide 24.0 mmol/L (21.0-32.0) 01/04/22 05:31 Anion Gap 8 (5-15) 01/04/22 05:31 BUN 10 mg/dL (7-18) 01/04/22 05:31 Creatinine 0.52 mg/dL (0.55-1.02) L 01/04/22 05:31 Est GFR (MDRD) Af Amer 145 mL/min (>60) 01/04/22 05:31 Est GFR (MDRD) Non-Af 120 mL/min (>60) 01/04/22 05:31 BUN/Creatinine Ratio 19.3 RATIO (10-20) 01/04/22 05:31 Glucose 113 mg/dL (74-106) H 01/04/22 05:31 Assessment/Plan: 1. Pain: Tylenol 1000mg PO Q6h PRN Pain 1-10. Please continue to monitor for increased/decreased S/S pain, PRN medication usage. - To date, the patient has not utilized any PRN doses of Tylenol. It appears the patient's pain is well managed at this time. 2. Stroke/ Carotid artery Stenosis: Lipitor 40mg PO QHS, Aspirin 81mg PO Daily, Plavix 75mg PO daily. Please continue to monitor for S/S bleeding/bruising, H/H (stable as of labs from 01/04), lipid panel annually or sooner if clinically indicated. Noted in the H/P that pt will follow-up with vascular surgery once pt stable. 3.GERD: Protonix 20mg PO Daily. Please continue to monitor for S/S GERD exacerbations. May also encourage patient to use non-pharmacologic treatments to help minimize GERD flare-ups as well. 4. Rheum: Methotrexate 15mg PO once weekly, Folic acid 2mg PO Daily, Prednisone 2.5mg PO Daily. Please continue to monitor hepatic enzymes (WNL 10/2021), blood glucose (stable), insomnia, N/V. 5. HTN: Norvasc 5mg PO Daily. Please continue to monitor BP (range 129-156/89-110), S/S extremity swelling, flushing. 6. Hypothyroidism: Synthroid 88mcg PO Daily. Please continue to monitor for symptom management, Thyroid function tests (last done 10/2020). 7. Vitamin D Deficiency: Ergocalciferol 1.25mg PO Weekly. Please continue to monitor. 8. Bowel: Miralax 17g PO Daily, Senna/Docusate 1 tab PO BID, MOM 30mL PO Daily PRN. Please continue to monitor for increased/decreased constipation and/or diarrhea. -Per EMR review, the patient has not had a documented bowel movement. Please consider administering PRN medications if patient does not produce a bowel movement in the next 24-48h, thanks. Assessment/Plan for indications treated with psychotropic medications: The patient is not currently taking any psychotropic medications at time of medication review. Medical chart and medication regimen reviewed. The following medication irregularities or issues were identified: 1. Hypothyroidism: Synthroid 88mcg PO Daily. Per EMR review, last documented thy roid labs done 10/2020. Please consider ordering thyroid function tests, thank you. Date of Note:: 01/05/22
[2022-01-05] MEDS: Atorvastatin Calcium 40 MG Tablet PO (20:40)
[2022-01-05 21:00] VITALS: PULSE 78; RESP 16; O2SAT 96
[2022-01-06] MEDS: Polyethylene Glycol 3350 17 GM PACKET 8.5 GM PO (05:35)
[2022-01-06] MEDS: Ensure Plus High Protein 120 ML LIQUID PO ×4 (05:35→19:51)
[2022-01-06] MEDS: Senna/Docusate Sodium 1 Tablet PO ×2 (05:36→17:34)
[2022-01-06] MEDS: Levothyroxine 88 MCG Tablet PO (05:36)
[2022-01-06] MEDS: amLODIPine 5 MG Tablet PO (05:36)
[2022-01-06] MEDS: Pantoprazole Sodium 20 MG Tablet PO (05:36)
[2022-01-06] MEDS: Clopidogrel Bisulfate 75 MG Tablet PO (05:36)
[2022-01-06] MEDS: Acetaminophen 500 MG Tablet 1000 MG PO ×2 (06:46→13:14)
[2022-01-06] MEDS: Aspirin 81 MG TAB.CHEW PO (08:22)
[2022-01-06] MEDS: predniSONE 5 MG Tablet 2.5 MG PO (08:22)
[2022-01-06] MEDS: Folic Acid 1 MG Tablet 2 MG PO (08:22)
[2022-01-06 10:00] VITALS: PULSE 97; RESP 18; O2SAT 95
[2022-01-06 14:52] VITALS: BP 124/78; PULSE 98; RESP 16; TEMP 36.2; O2SAT 94
[2022-01-06] MEDS: Arthritis Pain Compound 60 CLICK TUBE TOPICAL (17:34)
[2022-01-06] MEDS: Menthol/Lanolin/Calamine/Znox 113 GM Tube 1 APPLIC TOPICAL (17:34)
[2022-01-06] MEDS: Magnesium Hydroxide 30 ML UDC PO (17:44)
[2022-01-06] MEDS: Atorvastatin Calcium 40 MG Tablet PO (19:51)
[2022-01-06] MEDS: MELATONIN 10 MG TABLET PO (22:44)
[2022-01-06] MEDS: Bisacodyl 10 MG Suppository RC (22:46)
[2022-01-07] MEDS: Acetaminophen 500 MG Tablet 1000 MG PO (04:31)
[2022-01-07] MEDS: Arthritis Pain Compound 60 CLICK TUBE TOPICAL ×2 (04:32→16:40)
[2022-01-07] MEDS: Ensure Plus High Protein 120 ML LIQUID PO ×3 (04:33→16:40)
[2022-01-07] MEDS: Menthol/Lanolin/Calamine/Znox 113 GM Tube 1 APPLIC TOPICAL ×2 (04:33→16:42)
[2022-01-07] MEDS: amLODIPine 5 MG Tablet PO (04:34)
[2022-01-07] MEDS: Senna/Docusate Sodium 1 Tablet PO (04:34)
[2022-01-07] MEDS: Levothyroxine 88 MCG Tablet PO (04:34)
[2022-01-07] MEDS: Clopidogrel Bisulfate 75 MG Tablet PO (04:34)
[2022-01-07] MEDS: Pantoprazole Sodium 20 MG Tablet PO (04:34)
[2022-01-07] MEDS: Ergocalciferol 1.25 MG (50, 000 UNIT) Capsule PO (04:35)
[2022-01-07] MEDS: Polyethylene Glycol 3350 17 GM PACKET 8.5 GM PO (08:11)
[2022-01-07] MEDS: Folic Acid 1 MG Tablet 2 MG PO (08:11)
[2022-01-07] MEDS: predniSONE 5 MG Tablet 2.5 MG PO (08:11)
[2022-01-07] MEDS: Aspirin 81 MG TAB.CHEW PO (08:12)
[2022-01-07 15:50] VITALS: BP 158/97; PULSE 90; RESP 16; TEMP 36.1; O2SAT 94
[2022-01-07] MEDS: MELATONIN 10 MG TABLET PO (20:53)
[2022-01-07] MEDS: Atorvastatin Calcium 40 MG Tablet PO (20:54)
[2022-01-08] MEDS: Polyethylene Glycol 3350 17 GM PACKET 8.5 GM PO (05:35)
[2022-01-08] MEDS: Pantoprazole Sodium 20 MG Tablet PO (05:37)
[2022-01-08] MEDS: Clopidogrel Bisulfate 75 MG Tablet PO (05:38)
[2022-01-08] MEDS: amLODIPine 5 MG Tablet PO (05:38)
[2022-01-08] MEDS: Levothyroxine 88 MCG Tablet PO (05:39)
[2022-01-08] MEDS: Menthol/Lanolin/Calamine/Znox 113 GM Tube 1 APPLIC TOPICAL ×2 (05:41→17:33)
[2022-01-08 05:42] VITALS: BP 174/93; PULSE 73
--- NOTE | 2022-01-08 05:45 | NURSING ---
Arthritis compound cream to be applied after bathing this am per pt request.
[2022-01-08] MEDS: Arthritis Pain Compound 60 CLICK TUBE TOPICAL ×2 (09:14→17:32)
[2022-01-08] MEDS: predniSONE 5 MG Tablet 2.5 MG PO (09:15)
[2022-01-08] MEDS: Folic Acid 1 MG Tablet 2 MG PO (09:16)
[2022-01-08] MEDS: Aspirin 81 MG TAB.CHEW PO (09:16)
[2022-01-08] MEDS: Ensure Plus High Protein 120 ML LIQUID PO ×3 (13:15→22:02)
[2022-01-08 16:00] VITALS: BP 148/90; PULSE 82; RESP 16; TEMP 36.6; O2SAT 93
[2022-01-08] MEDS: Senna/Docusate Sodium 1 Tablet PO (17:32)
[2022-01-08] MEDS: MELATONIN 10 MG TABLET PO (22:04)
[2022-01-08] MEDS: Atorvastatin Calcium 40 MG Tablet PO (22:04)
[2022-01-09] MEDS: Acetaminophen 500 MG Tablet 1000 MG PO ×4 (00:25→21:57)
[2022-01-09] MEDS: Senna/Docusate Sodium 1 Tablet PO (05:42)
[2022-01-09] MEDS: Clopidogrel Bisulfate 75 MG Tablet PO (05:42)
[2022-01-09] MEDS: Pantoprazole Sodium 20 MG Tablet PO (05:43)
[2022-01-09] MEDS: amLODIPine 5 MG Tablet PO (05:43)
[2022-01-09] MEDS: Levothyroxine 88 MCG Tablet PO (05:43)
[2022-01-09] MEDS: Polyethylene Glycol 3350 17 GM PACKET 8.5 GM PO (05:44)
[2022-01-09] MEDS: Ensure Plus High Protein 120 ML LIQUID PO ×4 (05:44→21:57)
[2022-01-09] MEDS: Arthritis Pain Compound 60 CLICK TUBE TOPICAL ×2 (05:45→17:30)
[2022-01-09] MEDS: Menthol/Lanolin/Calamine/Znox 113 GM Tube 1 APPLIC TOPICAL ×2 (05:48→17:35)
[2022-01-09 06:44] VITALS: BP 151/93; PULSE 69
[2022-01-09] MEDS: Folic Acid 1 MG Tablet 2 MG PO (08:13)
[2022-01-09] MEDS: predniSONE 5 MG Tablet 2.5 MG PO (08:13)
[2022-01-09] MEDS: Aspirin 81 MG TAB.CHEW PO (08:13)
[2022-01-09 10:00] VITALS: PULSE 97; RESP 16; O2SAT 97
--- NOTE | 2022-01-09 10:24 | NURSING ---
Contacted Dr. Jet Navarro's office to schedule f/u appt, they stated they would have to check with the doctor before the appt can be made. Waiting for return call.
--- NOTE | 2022-01-09 13:44 | NURSING ---
Resident educated on the COVID 19 Vaccine. She does not want to receive a booster at this time.
[2022-01-09 15:15] VITALS: BP 148/105; PULSE 94; RESP 16; TEMP 36.4; O2SAT 94
[2022-01-09 15:27] VITALS: BP 142/95; PULSE 91
[2022-01-09 19:41] VITALS: PULSE 97
[2022-01-09] MEDS: Metoprolol Tartrate 25 MG Tablet 12.5 MG PO (19:41)
[2022-01-09] MEDS: Atorvastatin Calcium 40 MG Tablet PO (21:57)
[2022-01-09] MEDS: MELATONIN 10 MG TABLET PO (21:57)
[2022-01-09 22:05] VITALS: BP 160/84; PULSE 64; RESP 16; O2SAT 96
[2022-01-10] MEDS: Levothyroxine 88 MCG Tablet PO (04:39)
[2022-01-10] MEDS: Arthritis Pain Compound 60 CLICK TUBE TOPICAL ×2 (04:48→17:45)
[2022-01-10] MEDS: Ensure Plus High Protein 120 ML LIQUID PO ×3 (04:48→17:45)
[2022-01-10] MEDS: Menthol/Lanolin/Calamine/Znox 113 GM Tube 1 APPLIC TOPICAL ×2 (04:48→17:47)
[2022-01-10 04:49] VITALS: BP 164/90; PULSE 64
[2022-01-10] MEDS: Clopidogrel Bisulfate 75 MG Tablet PO (04:49)
[2022-01-10] MEDS: amLODIPine 10 MG Tablet PO (04:49)
[2022-01-10] MEDS: Pantoprazole Sodium 20 MG Tablet PO (04:49)
[2022-01-10] MEDS: Acetaminophen 500 MG Tablet 1000 MG PO ×3 (04:49→21:30)
[2022-01-10] MEDS: Metoprolol Tartrate 25 MG Tablet 12.5 MG PO ×2 (04:49→17:46)
[2022-01-10] MEDS: Aspirin 81 MG TAB.CHEW PO (07:48)
[2022-01-10] MEDS: predniSONE 5 MG Tablet 2.5 MG PO (07:48)
[2022-01-10] MEDS: Folic Acid 1 MG Tablet 2 MG PO (07:48)
--- NOTE | 2022-01-10 09:44 | NURSING ---
Outpatient infusion called to say pt had appointment scheduled for Prolia injection today at 1300 and asked if patient wanted to keep appointment. Pt request to cancel and she will call when ready to reschedule.
--- NOTE | 2022-01-10 10:10 | CASEMGMT ---
Social Work BIMS () and PHQ-9 (06/01) completed for MDS assessment. Heide Loya MSW ELECTRIC APPLIANCE INSTALLER
[2022-01-10 15:05] VITALS: BP 137/86; PULSE 76; RESP 14; TEMP 36.6; O2SAT 91
--- NOTE | 2022-01-10 16:07 | CHAPLAIN ---
Type of Pastoral Visit ___ Initial Visit _x__ Follow-up Visit ___ On-call Visit ___ General Patient Visit ___ Spiritual Assessment ___ Family Conference ___ Bereavement ___ Rapid Response ___ Code Blue ___ Other (describe below) Pastoral Care Referral From _x__ Patient ___ Family ___ Nurse ___ Physician ___ Warehouse Checker ___ Features Reporter ___ Other (describe below) Sacrament/Intervention _x__ Active listening ___ Anointing ___ Denominational ___ Bereavement ___ Communion ___ Jeanette exploration ___ ___ Life review ___ Prayer ___ Reconciliation ___ Sacrament of Sick ___ Supportive presence ___ Wedding ___ Other (describe below) Pastoral Comments patient is working on her bills with her daughter; SO is in the room; small talk and offer of support given; visit is brief due to the activity of pt
[2022-01-10 17:46] VITALS: PULSE 76
[2022-01-10] MEDS: Senna/Docusate Sodium 1 Tablet PO (17:46)
[2022-01-10] MEDS: MELATONIN 10 MG TABLET PO (21:30)
[2022-01-10] MEDS: Atorvastatin Calcium 40 MG Tablet PO (21:30)
[2022-01-11] MEDS: Menthol/Lanolin/Calamine/Znox 113 GM Tube 1 APPLIC TOPICAL ×2 (05:14→17:22)
[2022-01-11] MEDS: Arthritis Pain Compound 60 CLICK TUBE TOPICAL ×2 (05:15→17:21)
[2022-01-11] MEDS: Polyethylene Glycol 3350 17 GM PACKET 8.5 GM PO (05:16)
[2022-01-11] MEDS: Ensure Plus High Protein 120 ML LIQUID PO ×4 (05:16→23:05)
[2022-01-11 05:17] VITALS: BP 147/79; PULSE 64
[2022-01-11] MEDS: amLODIPine 10 MG Tablet PO (05:17)
[2022-01-11] MEDS: Pantoprazole Sodium 20 MG Tablet PO (05:17)
[2022-01-11] MEDS: Clopidogrel Bisulfate 75 MG Tablet PO (05:17)
[2022-01-11] MEDS: Senna/Docusate Sodium 1 Tablet PO (05:17)
[2022-01-11] MEDS: Levothyroxine 88 MCG Tablet PO (05:17)
[2022-01-11] MEDS: Metoprolol Tartrate 25 MG Tablet 12.5 MG PO ×2 (05:17→17:22)
[2022-01-11] MEDS: Acetaminophen 500 MG Tablet 1000 MG PO ×3 (05:17→22:59)
[2022-01-11 05:48] LABS: Absolute Lymphocyte Count 1.76 X10^3/uL (0.83-4.51); Basophil% 1.1 % (0-1); Eosinophil# 0.17 X10^3/uL; Eosinophils% 1.9 % (0-5); Hematocrit 42.5 % (37-47); Hemoglobin 13.6 g/dL (12.0-15.0); Lymphocyte # 1.76 X10^3/ul (0.83-4.51); Lymphocyte % 19.7 % (19-41); Mean Corpuscular Hgb 30.7 pg (27.0-32.0); Mean Corpuscular Volume 95.9 fL (81-99); NRBC Flagged by Analyzer 0 % (0-5); Neutrophil # 6.02 X10^3/uL (2.7-7.7); Neutrophil % 67.5 % (47-70); Platelet Count 345 K/mm3 (150-450); RBC Distribution Width CV 16.6 % (11.6-14.6); RBC Distribution Width SD 59.8 fl (35.1-43.9); Red Blood Count 4.43 M/mm3 (4.2-5.4); White Blood Count 8.9 K/mm3 (4.4-11.0)
[2022-01-11 06:09] LABS: Anion Gap 4 (5-15); BUN 22 mg/dL (7-18); BUN/Creat Ratio 34.7 RATIO (10-20); Calcium,Total 9.2 mg/dL (8.5-10.1); Chloride 107 mmol/L (98-107); Creatinine, Serum 0.63 mg/dL (0.55-1.02); EST Glomerular Filtration Rate 95 mL/min (>60); Est Glom Filt Rate - Afr Amer 115 mL/min (>60); Estimated Creatinine Clearance 29.54 ml/min; Glucose 110 mg/dL (74-106); Potassium 3.7 mmol/L (3.5-5.1); Sodium Level 137 mmol/L (136-145)
--- NOTE | 2022-01-11 08:33 | NURSING ---
Color Checker Note; MDS for 01/10 Complete
[2022-01-11] MEDS: predniSONE 5 MG Tablet 2.5 MG PO (08:48)
[2022-01-11] MEDS: Folic Acid 1 MG Tablet 2 MG PO (08:49)
[2022-01-11] MEDS: Aspirin 81 MG TAB.CHEW PO (08:49)
[2022-01-11] MEDS: Tuberculin,Purif.prot.deriv. 50 TU/ML Vial 0.1 ML ID (09:59)
--- NOTE | 2022-01-11 10:42 | CASEMGMT ---
Social Work IDT met with patient, SO and three children for care plan meeting. Discussed patient's progress in PT/OT/ST/SN. [facility] and continued stay is not guaranteed with each review. Broached topic of needing alternative DC plan as pt is x2 assist. SO does not live with pt and cannot assist physically. Children can assist but not /. Educated to options of nonskilled HHC, [place] or SNF and the financial liability. Offered to assist with Medicaid, if elgible. Family expressed understanding. SW provided EXHIBIT PREPARATOR resources and printed list of SNFs in network with insurance, quality and resource data via CarePort Guide. SW to continue to follow for DC planning. Heide Loya, MATERIALS ANALYST STEWARD/STEWARDESS CHIEF CARGO VESSEL
[2022-01-11 14:27] VITALS: BP 136/74; PULSE 77; RESP 18; TEMP 35.7; O2SAT 96
[2022-01-11 17:22] VITALS: PULSE 77
[2022-01-11] MEDS: MELATONIN 10 MG TABLET PO (22:59)
[2022-01-11] MEDS: Atorvastatin Calcium 40 MG Tablet PO (22:59)
[2022-01-12] VITALS: PULSE 67; RESP 16; O2SAT 98
[2022-01-12] MEDS: Ensure Plus High Protein 120 ML LIQUID PO ×4 (05:35→21:03)
[2022-01-12 05:36] VITALS: BP 163/70; PULSE 62
[2022-01-12] MEDS: Acetaminophen 500 MG Tablet 1000 MG PO ×3 (05:36→17:30)
[2022-01-12] MEDS: Clopidogrel Bisulfate 75 MG Tablet PO (05:36)
[2022-01-12] MEDS: Metoprolol Tartrate 25 MG Tablet 12.5 MG PO ×2 (05:36→17:31)
[2022-01-12] MEDS: Levothyroxine 88 MCG Tablet PO (05:36)
[2022-01-12] MEDS: Pantoprazole Sodium 20 MG Tablet PO (05:37)
[2022-01-12] MEDS: amLODIPine 10 MG Tablet PO (05:39)
[2022-01-12] MEDS: Menthol/Lanolin/Calamine/Znox 113 GM Tube 1 APPLIC TOPICAL ×2 (05:45→17:34)
[2022-01-12 09:00] VITALS: PULSE 65; RESP 16; O2SAT 96
[2022-01-12] MEDS: Arthritis Pain Compound 60 CLICK TUBE TOPICAL ×2 (09:21→17:30)
[2022-01-12] MEDS: predniSONE 5 MG Tablet 2.5 MG PO (09:22)
[2022-01-12] MEDS: Methotrexate 2.5 MG Tablet 15 MG PO (09:22)
[2022-01-12] MEDS: Aspirin 81 MG TAB.CHEW PO (09:23)
[2022-01-12] MEDS: Folic Acid 1 MG Tablet 2 MG PO (09:23)
--- NOTE | 2022-01-12 13:14 | ST.MBS ---
Modified Barium Swallow - Patient Information Study Date: 01/12/22 Study Time: 13:00 Direct Billable Minutes: 140 Total Minutes procedure & reportin Diagnosis: GERD (K21.9), Debility (R53.81) Referring Physician: Clif Babb Chi Reason for Referral: Objectively assess swallow function, assess risk for aspiration, and determine recommendations for least restrictive diet textures and compensatory strategies to improve safety of swallow. Medical History: Paulette Bansal is a 86-year-old female with a significant PMH of HTN, HLD, GERD, and thyroid disease (SEE H&P for full PMH) who presented to the [facility] ED 01/02/2022 with paresthesia of her right upper extremity and the right lower extremity. 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 She failed RN dysphagia screen and was referred for ST consult to assess swallow function and aspiration risk. BSE 01/02/2022 recommended Easy to Chew textures / Thin liquids - Distant supervision, next day pt was recommended no straws. Pt transferred to TCU for rehab services. Pt was followed by ST for dysphagia and dysarthria. She was recommended for MBSS due to persistent throat clearing with thin liquids and pt complaints of difficulty swallowing thin liquids. Current Diet Ordered: Easy to Chew textures / Thin liquids Mental Status: WNL Respiratory Status: Oxygenating on Room Air - Penetration-Aspiration Scale Penetration-Aspiration Scale: OBJECTIVE ASSESSMENT OF SWALLOW FUNCTION (QUANTITATIVE ? PER TRIAL): PENETRATION / ASPIRATION SCALE (CURIEL): 1 = does not enter airway 2 = enters airway/above vocal folds/ejected 3 = enters airway/above vocal folds/not ejected 4 = enters airway/contacts vocal folds/ejected 5 = enters airway/contacts vocal folds/not ejected 6 = enters airway/below vocal folds/ejected 7 = enters airway/below vocal folds/not ejected despite effort 8 = enters airway/below vocal folds/no effort VIDEOFLOROSCOPIC SCALE SCORE (CURIEL): Grade I = aspiration of material that has penetrated into the laryngeal vestibule, intact cough reflex Grade II = aspiration < 10 % of the bolus, intact cough reflex Grade III = aspiration of < 10 % of the bolus, reduced cough reflex or aspiration of > 10 % of the bolus, intact cough reflex Grade IV = aspiration of > 10 % of the bolus, reduced cough reflex - Penetration-Aspiration Scale Score Thin Liquid via teaspoon Result: 1= does not enter airway Thin Liquid via teaspoon Trial 2 Result: 5= enters airways/contacts vocal folds/not ejected Thin Liquid via small single sip from cup Result: 8= enters airway/below vocal folds/no effort - cued cough and re-swallow to clear laryngeal vestibule following the trial Thin Liquid via small single sip from cup Effortful swallow Result: 2= enter airway/above vocal folds/ejected [place] Thick Liquid via small single sip from cup Result: 1= does not enter airway Honey Thick Liquid via small single sip from cup Result: 1= does not enter airway Pudding via teaspoon with esophageal screen Result: 1= does not enter airway Thin Liquid via small single sip from cup Effortful swallow Trial 2 Result: 7= enters airways/below vocal folds/not ejected despite effort 1/4 Cookie Result: 1= does not enter airway [place] Thick Liquid via large single sip from cup with esophageal screen Result: 5= enters airways/contacts vocal folds/not ejected [place] Thick Liquid via small single sip from cup Effortful swallow Result: 1= does not enter airway [place] Thick Liquid via small single sip from cup Effortful swallow Trial 2 Result: 1= does not enter airway Thin Liquid via small single sip from cup Chin tuck Result: 1= does not enter airway Thin Liquid via small single sip from cup Chin tuck Trial 2 Result: 1= does not enter airway - Oral Phase Labial Seal: No Labial Escape Tongue Control During Bolus Hold: Posterior escape of greater than half of bolus Bolus Transport/Lingual Motion: Slowed tongue motion Oral Residue: Residue collection on oral structures - Pharyngeal Phase Initiation of Pharyngeal Swallow: Bolus head in pyriforms Soft Palate Elevation: No bolus between soft palate and pharyngeal wall Laryngeal Elevation: Partial superior movement thyroid cart/partial apprx aryt-epig petiole Anterior Hyoid Excursion: Partial anterior movement Epiglottic Movement: Partial inversion Laryngeal Vestibule Closure at Height of Swallow: Incomplete; narrow column of air/contrast in laryngeal vestibule Pharyngeal Stripping Wave: Present - diminished Pharyngoesophageal Segment Opening: Parital distension and partial duration; parital obstruction of flow Tongue Base Retraction: Narrow column of contrast between tongue base & post. pharyngeal wall Pharyngeal Residue: Collection of residue within or on pharyngeal structures - Esophageal Phase Esophageal Clearance: Esophageal retention w/ retrograde flow below pharyngoesophageal seg. - Treatment Strategies Effects of treatment strategies attemped:: Chin tuck = effective. Effortful swallow = somewhat effective. - Diagnosis/Impression Diagnosis: Mild-moderate oropharyngeal phase dysphagia (R13.12) Impression: The oral phase is primarily marked by... -Decreased bolus control with >1/2 of the bolus spilling posteriorly to the pyriforms prior to swallow onset observed with some thin liquid trials. -Slowed tongue motion for A-P transport -Mild oral residue after the swallow. -Prolonged, but adequate mastication of 1/4 regular cookie. The pharyngeal phase is primarily marked by... -Decreased airway closure during the swallow due to decreased anterior hyoid excursion, epiglottic inversion, and laryngeal elevation. -Mild decreased tongue base retraction, UES opening/duration, and pharyngeal stripping wave with resulting mild pharyngeal residues after the swallow. -SILENT aspiration of thin liquids by cup. Laryngeal penetration to the vocal folds with thin by tsp and large sip of nectar by cup, which did not reliably eject from the laryngeal vestibule after the swallow. Use of chin tuck was most effective in decreasing laryngeal penetration and aspiration during the swallow. The esophageal phase is primarily marked by... -Esophageal retention of pudding in mid and upper esophagus. This esophageal retention had almost completely cleared when provided thin liquid wash. -Esophageal retention of nectar thick liquids with retrograde flow remaining below UES. -Small CP bar present at the level of C-4, which did not appear to impact bolus clearance through the UES. - Recommendations Diet: Thin Liquids - Easy to Chew textures (IDDSI Level 7) Compensatory Strategies: Small Bites, Small Sips, No Straws, Slow Rate - Sips one at a time, Chin Tuck - WITH ALL SIPS, Alternate bites/solids and sips/liquids, Sitting upright, Remain sitting upright for 30 minutes after PO intake Recommend Repeat Modified Barium Swallow: Yes - Repeat MBSS in 2-4 weeks after implementation of oropharyngeal exercise program Need for Skilled Speech Therapy Services: Yes Comment: Will recommend the patient for dysphagia therapy to address deficits in oropharyngeal swallow function. Will recommend the patient for oropharyngeal strengthening to improve tongue base retraction, laryngeal elevation, hyoid excursion, and pharyngeal contraction (Jessica, CECILLER, Naz, effortful swallow). The patient would benefit from thorough education regarding diet recommendations and recommended compensatory strategies. Education Completed: 1. Described result of evaluation., 2. Pt understands evaluation & agrees with goals and treatment plan., 4. Family/caregivers understand evaluation & agree w/ goals & tx plan., 6. Family/caregivers demonstrate recommended strategies., 7. Pt requires further education on strategies & risks. - Status Active ST Patient: Active - Contact Information [facility] Speech Therapy:: Anusha Claros M.A. [facility]-INSPECTOR BICYCLE Speech-Language Pathologist [facility] [address] [place] [address] [email or web address] [phone] 01/12/22 15:49
[2022-01-12 15:43] VITALS: BP 150/77; PULSE 72; RESP 14; TEMP 36.2; O2SAT 93
[2022-01-12 17:31] VITALS: BP 138/79; PULSE 65
[2022-01-12] MEDS: Senna/Docusate Sodium 1 Tablet PO (17:31)
[2022-01-12] MEDS: Atorvastatin Calcium 40 MG Tablet PO (21:03)
[2022-01-12] MEDS: MELATONIN 10 MG TABLET PO (21:03)
[2022-01-13] MEDS: Acetaminophen 500 MG Tablet 1000 MG PO ×3 (03:18→22:10)
[2022-01-13] MEDS: Senna/Docusate Sodium 1 Tablet PO (04:44)
[2022-01-13] MEDS: Clopidogrel Bisulfate 75 MG Tablet PO (04:44)
[2022-01-13] MEDS: Pantoprazole Sodium 20 MG Tablet PO (04:44)
[2022-01-13] MEDS: amLODIPine 10 MG Tablet PO (04:44)
[2022-01-13] MEDS: Levothyroxine 88 MCG Tablet PO (04:44)
[2022-01-13] MEDS: Arthritis Pain Compound 60 CLICK TUBE TOPICAL ×2 (04:46→17:11)
[2022-01-13] MEDS: Menthol/Lanolin/Calamine/Znox 113 GM Tube 1 APPLIC TOPICAL ×2 (04:46→17:14)
[2022-01-13 04:47] VITALS: BP 156/80; PULSE 60
[2022-01-13] MEDS: Metoprolol Tartrate 25 MG Tablet 12.5 MG PO ×2 (04:47→17:12)
[2022-01-13] MEDS: Ensure Plus High Protein 120 ML LIQUID PO ×4 (04:47→22:11)
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
[2022-01-13] MEDS: predniSONE 5 MG Tablet 2.5 MG PO (08:30)
[2022-01-13] MEDS: Aspirin 81 MG TAB.CHEW PO (08:30)
[2022-01-13] MEDS: Folic Acid 1 MG Tablet 2 MG PO (08:31)
[2022-01-13 14:24] VITALS: BP 115/70; PULSE 76; RESP 16; TEMP 36.6; O2SAT 93
--- NOTE | 2022-01-13 15:49 | NURSING ---
DIESEL INSPECTOR REPORTED NEGATIVE DOPPLER
[2022-01-13 17:12] VITALS: BP 115/70; PULSE 76
[2022-01-13] MEDS: MELATONIN 10 MG TABLET PO (22:10)
[2022-01-13] MEDS: Atorvastatin Calcium 40 MG Tablet PO (22:10)
[2022-01-13 22:41] VITALS: PULSE 63; RESP 16; O2SAT 96
[2022-01-14] MEDS: Pantoprazole Sodium 20 MG Tablet PO (05:06)
[2022-01-14] MEDS: Acetaminophen 500 MG Tablet 1000 MG PO ×3 (05:06→20:45)
[2022-01-14] MEDS: Ergocalciferol 1.25 MG (50, 000 UNIT) Capsule PO (05:06)
[2022-01-14] MEDS: Clopidogrel Bisulfate 75 MG Tablet PO (05:06)
[2022-01-14] MEDS: Levothyroxine 88 MCG Tablet PO (05:06)
[2022-01-14 05:07] VITALS: BP 167/94; PULSE 66
[2022-01-14] MEDS: Senna/Docusate Sodium 1 Tablet PO (05:07)
[2022-01-14] MEDS: Metoprolol Tartrate 25 MG Tablet 12.5 MG PO ×2 (05:07→17:01)
[2022-01-14] MEDS: amLODIPine 10 MG Tablet PO (05:07)
[2022-01-14] MEDS: Arthritis Pain Compound 60 CLICK TUBE TOPICAL ×2 (05:09→17:01)
[2022-01-14] MEDS: Ensure Plus High Protein 120 ML LIQUID PO ×3 (05:09→20:44)
[2022-01-14] MEDS: Menthol/Lanolin/Calamine/Znox 113 GM Tube 1 APPLIC TOPICAL ×2 (05:16→17:04)
[2022-01-14] MEDS: Folic Acid 1 MG Tablet 2 MG PO (08:19)
[2022-01-14] MEDS: Aspirin 81 MG TAB.CHEW PO (08:20)
[2022-01-14] MEDS: predniSONE 5 MG Tablet 2.5 MG PO (08:20)
[2022-01-14 13:29] VITALS: BP 127/69; PULSE 69; RESP 18; TEMP 36.8; O2SAT 97
[2022-01-14 17:01] VITALS: BP 144/84; PULSE 65
[2022-01-14] MEDS: Sodium Chloride 0.65% 1 SPRAY SPRAY.BTL 2 SPRAY NASAL (17:03)
[2022-01-14] MEDS: MELATONIN 10 MG TABLET PO (20:46)
[2022-01-14] MEDS: Atorvastatin Calcium 40 MG Tablet PO (20:46)
[2022-01-14] MEDS: ALPRAZolam 0.25 MG Tablet PO (20:50)
[2022-01-14 21:00] VITALS: PULSE 70; RESP 18; O2SAT 96
[2022-01-15] MEDS: ALPRAZolam 0.25 MG Tablet PO (03:56)
[2022-01-15 03:57] VITALS: BP 139/73; PULSE 63
[2022-01-15] MEDS: Metoprolol Tartrate 25 MG Tablet 12.5 MG PO ×2 (03:57→17:41)
[2022-01-15] MEDS: Senna/Docusate Sodium 1 Tablet PO (03:58)
[2022-01-15] MEDS: Pantoprazole Sodium 20 MG Tablet PO (03:58)
[2022-01-15] MEDS: Levothyroxine 88 MCG Tablet PO (03:58)
[2022-01-15] MEDS: Acetaminophen 500 MG Tablet 1000 MG PO ×3 (03:58→20:35)
[2022-01-15] MEDS: amLODIPine 10 MG Tablet PO (03:58)
[2022-01-15] MEDS: Clopidogrel Bisulfate 75 MG Tablet PO (03:58)
[2022-01-15] MEDS: Menthol/Lanolin/Calamine/Znox 113 GM Tube 1 APPLIC TOPICAL ×2 (03:59→17:42)
[2022-01-15] MEDS: Arthritis Pain Compound 60 CLICK TUBE TOPICAL ×2 (03:59→17:41)
[2022-01-15] MEDS: Ensure Plus High Protein 120 ML LIQUID PO ×2 (04:04→20:34)
[2022-01-15] MEDS: Folic Acid 1 MG Tablet 2 MG PO (08:13)
[2022-01-15] MEDS: Aspirin 81 MG TAB.CHEW PO (08:13)
[2022-01-15] MEDS: predniSONE 5 MG Tablet 2.5 MG PO (08:13)
[2022-01-15 14:27] VITALS: BP 122/80; PULSE 72; RESP 16; TEMP 36.3; O2SAT 97
[2022-01-15 17:40] VITALS: BP 159/88; PULSE 79
[2022-01-15 17:41] VITALS: PULSE 79
[2022-01-15] MEDS: MELATONIN 10 MG TABLET PO (20:35)
[2022-01-15] MEDS: Atorvastatin Calcium 40 MG Tablet PO (20:35)
[2022-01-15 20:39] VITALS: PULSE 57; RESP 16; O2SAT 96
[2022-01-16 05:56] VITALS: BP 145/76; PULSE 60
[2022-01-16] MEDS: Levothyroxine 88 MCG Tablet PO (05:56)
[2022-01-16] MEDS: amLODIPine 10 MG Tablet PO (05:56)
[2022-01-16] MEDS: Pantoprazole Sodium 20 MG Tablet PO (05:56)
[2022-01-16] MEDS: Clopidogrel Bisulfate 75 MG Tablet PO (05:56)
[2022-01-16] MEDS: Metoprolol Tartrate 25 MG Tablet 12.5 MG PO ×2 (05:56→17:06)
[2022-01-16] MEDS: Acetaminophen 500 MG Tablet 1000 MG PO ×3 (05:56→22:24)
[2022-01-16] MEDS: Arthritis Pain Compound 60 CLICK TUBE TOPICAL ×2 (05:59→17:05)
[2022-01-16] MEDS: Menthol/Lanolin/Calamine/Znox 113 GM Tube 1 APPLIC TOPICAL ×2 (06:00→17:04)
[2022-01-16] MEDS: Aspirin 81 MG TAB.CHEW PO (08:15)
[2022-01-16] MEDS: Folic Acid 1 MG Tablet 2 MG PO (08:15)
[2022-01-16] MEDS: predniSONE 5 MG Tablet 2.5 MG PO (08:15)
--- NOTE | 2022-01-16 10:36 | CASEMGMT ---
Social Work SHAYNA met with pt's 2 daughters and son to discuss discharge plans. SHAYNA reviewed therapy notes with family and discussed pt's functional needs. SHAYNA also spoke with family regarding insurance update due tomorrow and continued stay is not guaranteed. Discharge options discussed including home with 24 hour assistance, private duty aids and ECF. Pt family feels pt will need ECF placement with continued therapy under Medicare part B benefits with the eventual goal for pt to return home. Financial cost discussed and pt does not qualify for Medicaid at this time and family is understanding pt would be private pay at [facility]. Family preferred provider is 1. [facility] and 2. [facility]. SW left VM with Sue at [facility] to discuss Part B benefits and bed availability. SW will await return call and update family with information when obtained. HEATHER Gotti
--- NOTE | 2022-01-16 11:03 | MDS.RN ---
Information for the mds was obtained from review of the clinical record, interview of resident, staff, and direct observation of resident's care.
[2022-01-16] MEDS: Ensure Plus High Protein 120 ML LIQUID PO ×2 (13:28→17:05)
[2022-01-16 14:22] VITALS: BP 136/83; PULSE 75; RESP 18; TEMP 36.3; O2SAT 95
[2022-01-16 17:06] VITALS: PULSE 75
[2022-01-16 22:00] VITALS: PULSE 60; RESP 14; O2SAT 97
[2022-01-16] MEDS: Atorvastatin Calcium 40 MG Tablet PO (22:24)
[2022-01-16] MEDS: MELATONIN 10 MG TABLET PO (22:24)
[2022-01-17 05:10] VITALS: BP 148/83; PULSE 68
[2022-01-17] MEDS: Pantoprazole Sodium 20 MG Tablet PO (05:10)
[2022-01-17] MEDS: Metoprolol Tartrate 25 MG Tablet 12.5 MG PO ×2 (05:10→17:13)
[2022-01-17] MEDS: amLODIPine 10 MG Tablet PO (05:10)
[2022-01-17] MEDS: Acetaminophen 500 MG Tablet 1000 MG PO ×3 (05:10→20:09)
[2022-01-17] MEDS: Clopidogrel Bisulfate 75 MG Tablet PO (05:10)
[2022-01-17] MEDS: Arthritis Pain Compound 60 CLICK TUBE TOPICAL ×2 (05:11→17:13)
[2022-01-17] MEDS: Levothyroxine 88 MCG Tablet PO (05:13)
--- NOTE | 2022-01-17 07:38 | NURSING ---
Written communication left for Dr. Babb, patient complaint of right hip/rib pain, also requesting stronger sleep med
--- NOTE | 2022-01-17 08:02 | RAD_ITS ---
STUDY: X-RAY - PELVIS AND RIGHT HIP REASON FOR EXAM: Female, 86 years old. Hip pain after sliding out of bed. TECHNIQUE: 3 views of the pelvis and hip. COMPARISON: None. FINDINGS: There is a non-specific bowel gas pattern. Calcified fibroid uterus. Prior fusion at the L4-L5 level. There is narrowing with cortical sclerosis and osteophyte formation of the sacroiliac joint consistent with degenerative osteoarthritic changes. Normal bilateral superior and inferior pubic rami. There is narrowing with sclerosis of the pubic symphysis. Normal bilateral ischial tuberosities. The patient is status post ORIF of a right intertrochanteric fracture utilizing a compression screw fixation device in intramedullary zenaida fixation. There is good alignment. Moderate degree of bone or joint space narrowing involving both hip joints. RAD/HIP, UNI W/ Pelvis 2-3 Views IMPRESSION: Status post ORIF of the right intertrochanteric fracture. There is good alignment. Electronically Signed: Jose Jackson MD at 9:19 EST ,
[2022-01-17] MEDS: predniSONE 5 MG Tablet 2.5 MG PO (08:04)
[2022-01-17] MEDS: Folic Acid 1 MG Tablet 2 MG PO (08:04)
[2022-01-17] MEDS: Aspirin 81 MG TAB.CHEW PO (08:04)
--- NOTE | 2022-01-17 08:20 | RAD_ITS ---
STUDY: X-RAY - UNILATERAL RIBS ( RIGHT ) WITH CHEST REASON FOR EXAM: Female, 86 years old. Right rib pain sliding out of bed. TECHNIQUE - RIBS: 3 view(s) of the ribs. TECHNIQUE - CHEST: Single frontal view of the chest. COMPARISON: Comparison is made with prior chest radiograph dated 01/02/2022. FINDINGS - RIBS: Normal visualized ribs without a demonstrated fracture. FINDINGS - CHEST: Mild increased markings at the left lung base suggestive of left basilar atelectasis. There is no demonstrated pleural abnormality. Calcification of the mitral valve annulus. Normal mediastinum and angel. Normal visualized pulmonary arteries. There is atherosclerotic calcification of the aortic arch with tortuosity. There are diffuse degenerative changes of the visualized thoracic spine. There is degenerative osteoarthritis of the bilateral shoulders. There is no demonstrated abnormality of the visualized soft tissue structures of the upper abdomen. RAD/Ribs Uni Min 3V w/PA Chest IMPRESSION: RIBS: Normal x-ray examination of the ribs. CHEST: Mild degree of increased markings at the left lung base suggestive of atelectasis. Electronically Signed: Jose Jackson MD at 9:22 EST ,
--- NOTE | 2022-01-17 09:14 | CASEMGMT ---
Addendum entered by Heide Loya 01/17/22 15:16: Referral made to [facility] via CarePort. Original Note: Social Work Spoke with Bibiana at [facility] to f/u on referral. Bibiana did not receive referral; requested to resend via CarePort. Will await outcome. Heide Loya, DINING SERVICES MANAGER VALUE STREAM LEADER
[2022-01-17 10:00] VITALS: PULSE 71; RESP 18; O2SAT 97
[2022-01-17] MEDS: traMADol 50 MG Tablet PO (11:31)
[2022-01-17] MEDS: Menthol/Lanolin/Calamine/Znox 113 GM Tube 1 APPLIC TOPICAL ×2 (11:32→20:10)
[2022-01-17 17:00] VITALS: BP 152/87; PULSE 71; RESP 18; TEMP 35.8; O2SAT 96
[2022-01-17 17:13] VITALS: BP 152/87; PULSE 71
[2022-01-17] MEDS: Atorvastatin Calcium 40 MG Tablet PO (20:09)
[2022-01-17] MEDS: Doxepin Hydrochloride 10 MG Capsule PO (20:09)
[2022-01-18 06:03] LABS: Absolute Lymphocyte Count 1.64 X10^3/uL (0.83-4.51); Absolute Neutrophil Count 5.4 X10^3/uL (2.0-7.7); Basophil# 0.08 X10^3/uL; Eosinophil# 0.15 X10^3/uL; Eosinophils% 1.9 % (0-5); Hematocrit 40.7 % (37-47); Lymphocyte # 1.64 X10^3/ul (0.83-4.51); Lymphocyte % 20.4 % (19-41); Mean Corp Hgb Conc 31.9 g/dL (32-36); Mean Corpuscular Hgb 30.4 pg (27.0-32.0); Mean Corpuscular Volume 95.3 fL (81-99); Mean Platelet Vol. 9.1 fl (6.2-12.0); Monocyte# 0.76 X10^3/uL; Monocyte% 9.5 % (0-10); NRBC Flagged by Analyzer 0 % (0-5); Neutrophil # 5.36 X10^3/uL (2.7-7.7); Neutrophil % 66.6 % (47-70); Platelet Count 299 K/mm3 (150-450); RBC Distribution Width CV 16.6 % (11.6-14.6); RBC Distribution Width SD 58.4 fl (35.1-43.9); Red Blood Count 4.27 M/mm3 (4.2-5.4)
[2022-01-18 06:10] VITALS: BP 148/79; PULSE 69
[2022-01-18] MEDS: Levothyroxine 88 MCG Tablet PO (06:11)
[2022-01-18 06:12] VITALS: PULSE 69
[2022-01-18] MEDS: Acetaminophen 500 MG Tablet 1000 MG PO ×3 (06:12→21:51)
[2022-01-18] MEDS: Clopidogrel Bisulfate 75 MG Tablet PO (06:12)
[2022-01-18] MEDS: Metoprolol Tartrate 25 MG Tablet 12.5 MG PO ×2 (06:12→17:27)
[2022-01-18] MEDS: Pantoprazole Sodium 20 MG Tablet PO (06:12)
[2022-01-18] MEDS: Arthritis Pain Compound 60 CLICK TUBE TOPICAL ×2 (06:12→17:27)
[2022-01-18] MEDS: amLODIPine 10 MG Tablet PO (06:12)
[2022-01-18 06:34] LABS: Anion Gap 5 (5-15); BUN 16 mg/dL (7-18); BUN/Creat Ratio 31.5 RATIO (10-20); Calcium,Total 9.2 mg/dL (8.5-10.1); Chloride 109 mmol/L (98-107); Creatinine, Serum 0.51 mg/dL (0.55-1.02); EST Glomerular Filtration Rate 122 mL/min (>60); Est Glom Filt Rate - Afr Amer 148 mL/min (>60); Estimated Creatinine Clearance 29.54 ml/min; Glucose 98 mg/dL (74-106); Potassium 3.3 mmol/L (3.5-5.1); Sodium Level 140 mmol/L (136-145)
[2022-01-18] MEDS: Aspirin 81 MG TAB.CHEW PO (07:25)
[2022-01-18] MEDS: Folic Acid 1 MG Tablet 2 MG PO (07:25)
[2022-01-18] MEDS: predniSONE 5 MG Tablet 2.5 MG PO (07:25)
[2022-01-18] MEDS: Potassium Chloride Oral Tablet 20 MEQ 40 MEQ PO (09:21)
[2022-01-18] MEDS: Menthol/Lanolin/Calamine/Znox 113 GM Tube 1 APPLIC TOPICAL ×2 (09:24→21:55)
--- NOTE | 2022-01-18 13:05 | CASEMGMT ---
Social Work [facility] is able to accept pt. [facility] can accept but updated this worker that they are in COVID outbreak and unable to accept until 02/01. Insurance approved with [employer]D 01/23. SW met with pt and SO in room to update on above. Pts first choice is [facility]. Pt requesting SW contact dtrBijal. SW spoke with dtr to update on above. Dtr appreciative. SW to continue to follow. Heide Loya, NUT ORCHARDIST ADVANCED RESEARCH PROGRAMS DIRECTOR
[2022-01-18] MEDS: traMADol 50 MG Tablet PO (13:45)
--- NOTE | 2022-01-18 13:56 | NURSING ---
R' HAS HAD SEVERAL EPISODES OF DIARRHEA, VERY FOUL SMELLING. NOTIFIED DR RUIZ. N.O. TO [facility] FOR CDIF. ALSO, R' REQUESTING MELATONIN BE REORDERED AND DOXEPIN DC'D. OK PER DR RUIZ. R' PLACED IN CONTACT ISOLATION.
[2022-01-18 15:14] VITALS: BP 119/80; PULSE 72; RESP 17; TEMP 36.2; O2SAT 93
[2022-01-18 17:27] VITALS: PULSE 72
[2022-01-18] MEDS: MELATONIN 10 MG TABLET PO (21:51)
[2022-01-18] MEDS: Atorvastatin Calcium 40 MG Tablet PO (21:52)
[2022-01-19 06:22] LABS: Anion Gap 7 (5-15); BUN 13 mg/dL (7-18); BUN/Creat Ratio 22.9 RATIO (10-20); Chloride 109 mmol/L (98-107); Creatinine, Serum 0.57 mg/dL (0.55-1.02); EST Glomerular Filtration Rate 108 mL/min (>60); Est Glom Filt Rate - Afr Amer 130 mL/min (>60); Estimated Creatinine Clearance 29.54 ml/min; Glucose 100 mg/dL (74-106); Potassium 3.7 mmol/L (3.5-5.1); Sodium Level 139 mmol/L (136-145)
[2022-01-19 06:24] VITALS: BP 151/72; PULSE 62
[2022-01-19] MEDS: amLODIPine 10 MG Tablet PO (06:24)
[2022-01-19] MEDS: Clopidogrel Bisulfate 75 MG Tablet PO (06:24)
[2022-01-19] MEDS: Metoprolol Tartrate 25 MG Tablet 12.5 MG PO ×2 (06:24→17:43)
[2022-01-19] MEDS: Levothyroxine 88 MCG Tablet PO (06:24)
[2022-01-19] MEDS: Methotrexate 2.5 MG Tablet 15 MG PO (06:25)
[2022-01-19] MEDS: Arthritis Pain Compound 60 CLICK TUBE TOPICAL ×2 (06:26→17:44)
[2022-01-19] MEDS: Acetaminophen 500 MG Tablet 1000 MG PO ×3 (06:27→21:12)
[2022-01-19] MEDS: Pantoprazole Sodium 20 MG Tablet PO (06:28)
[2022-01-19] MEDS: Folic Acid 1 MG Tablet 2 MG PO (07:45)
[2022-01-19] MEDS: Aspirin 81 MG TAB.CHEW PO (07:45)
[2022-01-19] MEDS: predniSONE 5 MG Tablet 2.5 MG PO (07:45)
[2022-01-19 10:00] VITALS: PULSE 65; RESP 16; O2SAT 99
[2022-01-19] MEDS: traMADol 50 MG Tablet PO (13:08)
[2022-01-19 15:10] VITALS: BP 146/93; PULSE 76; RESP 16; TEMP 36.5; O2SAT 93
[2022-01-19 17:42] VITALS: BP 161/93; PULSE 72
[2022-01-19 17:43] VITALS: PULSE 72
[2022-01-19] MEDS: Menthol/Lanolin/Calamine/Znox 113 GM Tube 1 APPLIC TOPICAL ×2 (17:44→21:13)
--- NOTE | 2022-01-19 19:27 | NURSING ---
No BM for 24hrs after c-diff ordered, order cancelled.
[2022-01-19] MEDS: MELATONIN 10 MG TABLET PO (21:12)
[2022-01-19] MEDS: Atorvastatin Calcium 40 MG Tablet PO (21:12)
[2022-01-20] MEDS: Senna/Docusate Sodium 1 Tablet PO ×2 (04:56→16:51)
[2022-01-20 04:57] VITALS: BP 132/78; PULSE 62
[2022-01-20] MEDS: Acetaminophen 500 MG Tablet 1000 MG PO ×3 (04:57→21:24)
[2022-01-20] MEDS: Pantoprazole Sodium 20 MG Tablet PO (04:57)
[2022-01-20] MEDS: amLODIPine 10 MG Tablet PO (04:57)
[2022-01-20] MEDS: Levothyroxine 88 MCG Tablet PO (04:57)
[2022-01-20] MEDS: Clopidogrel Bisulfate 75 MG Tablet PO (04:57)
[2022-01-20] MEDS: Metoprolol Tartrate 25 MG Tablet 12.5 MG PO ×2 (04:57→16:51)
[2022-01-20] MEDS: Arthritis Pain Compound 60 CLICK TUBE TOPICAL ×2 (05:06→16:51)
[2022-01-20] MEDS: Aspirin 81 MG TAB.CHEW PO (08:03)
[2022-01-20] MEDS: Folic Acid 1 MG Tablet 2 MG PO (08:03)
[2022-01-20] MEDS: predniSONE 5 MG Tablet 2.5 MG PO (08:03)
[2022-01-20 10:00] VITALS: PULSE 71; RESP 16; O2SAT 96
[2022-01-20] MEDS: traMADol 50 MG Tablet PO ×2 (13:11→21:30)
[2022-01-20] MEDS: Menthol/Lanolin/Calamine/Znox 113 GM Tube 1 APPLIC TOPICAL ×2 (13:13→21:21)
[2022-01-20 13:14] VITALS: BP 150/78; PULSE 72; RESP 18; TEMP 36.1; O2SAT 96
[2022-01-20] MEDS: Saliva Substitute 237 ML BOTTLE 15 ML MUCOUS MEM (16:47)
[2022-01-20 16:51] VITALS: BP 146/87; PULSE 70
[2022-01-20] MEDS: Atorvastatin Calcium 40 MG Tablet PO (21:21)
[2022-01-20] MEDS: MELATONIN 10 MG TABLET PO (21:25)
[2022-01-21] MEDS: Arthritis Pain Compound 60 CLICK TUBE TOPICAL ×2 (05:35→17:19)
[2022-01-21] MEDS: traMADol 50 MG Tablet PO (05:43)
[2022-01-21] MEDS: Ergocalciferol 1.25 MG (50, 000 UNIT) Capsule PO (05:44)
[2022-01-21] MEDS: Levothyroxine 88 MCG Tablet PO (05:44)
[2022-01-21] MEDS: Clopidogrel Bisulfate 75 MG Tablet PO (05:44)
[2022-01-21] MEDS: amLODIPine 10 MG Tablet PO (05:44)
[2022-01-21] MEDS: Acetaminophen 500 MG Tablet 1000 MG PO ×3 (05:44→21:27)
[2022-01-21] MEDS: Pantoprazole Sodium 20 MG Tablet PO (05:44)
[2022-01-21 05:46] VITALS: BP 148/78; PULSE 62
[2022-01-21] MEDS: Metoprolol Tartrate 25 MG Tablet 12.5 MG PO ×2 (05:46→17:20)
[2022-01-21] MEDS: Folic Acid 1 MG Tablet 2 MG PO (08:13)
[2022-01-21] MEDS: predniSONE 5 MG Tablet 2.5 MG PO (08:13)
[2022-01-21] MEDS: Aspirin 81 MG TAB.CHEW PO (08:14)
[2022-01-21] MEDS: Menthol/Lanolin/Calamine/Znox 113 GM Tube 1 APPLIC TOPICAL ×2 (10:45→21:25)
[2022-01-21] MEDS: Saliva Substitute 237 ML BOTTLE 15 ML MUCOUS MEM (13:34)
[2022-01-21 16:00] VITALS: BP 157/83; PULSE 62; RESP 14; TEMP 36.1; O2SAT 96
[2022-01-21 17:20] VITALS: PULSE 62
[2022-01-21] MEDS: MELATONIN 10 MG TABLET PO (21:27)
[2022-01-21] MEDS: Atorvastatin Calcium 40 MG Tablet PO (21:27)
[2022-01-22 05:39] VITALS: BP 135/83; PULSE 66
[2022-01-22] MEDS: Clopidogrel Bisulfate 75 MG Tablet PO (05:39)
[2022-01-22] MEDS: Metoprolol Tartrate 25 MG Tablet 12.5 MG PO ×2 (05:39→17:47)
[2022-01-22] MEDS: Levothyroxine 88 MCG Tablet PO (05:40)
[2022-01-22] MEDS: Acetaminophen 500 MG Tablet 1000 MG PO ×3 (05:40→21:18)
[2022-01-22] MEDS: Pantoprazole Sodium 20 MG Tablet PO (05:40)
[2022-01-22] MEDS: amLODIPine 10 MG Tablet PO (05:40)
[2022-01-22] MEDS: Arthritis Pain Compound 60 CLICK TUBE TOPICAL ×2 (05:41→17:46)
[2022-01-22] MEDS: Folic Acid 1 MG Tablet 2 MG PO (09:15)
[2022-01-22] MEDS: predniSONE 5 MG Tablet 2.5 MG PO (09:16)
[2022-01-22] MEDS: Aspirin 81 MG TAB.CHEW PO (09:16)
[2022-01-22] MEDS: Menthol/Lanolin/Calamine/Znox 113 GM Tube 1 APPLIC TOPICAL ×2 (09:27→21:19)
[2022-01-22 13:37] VITALS: BP 130/70; PULSE 66; RESP 15; TEMP 36.5; O2SAT 92
[2022-01-22] MEDS: Saliva Substitute 237 ML BOTTLE 15 ML MUCOUS MEM ×2 (14:01→17:49)
[2022-01-22 17:47] VITALS: BP 130/70; PULSE 66
[2022-01-22] MEDS: Atorvastatin Calcium 40 MG Tablet PO (21:18)
[2022-01-22] MEDS: MELATONIN 10 MG TABLET PO (21:18)
[2022-01-23 05:27] VITALS: BP 141/80; PULSE 57
[2022-01-23] MEDS: Arthritis Pain Compound 60 CLICK TUBE TOPICAL ×2 (05:27→17:46)
[2022-01-23] MEDS: Metoprolol Tartrate 25 MG Tablet 12.5 MG PO ×2 (05:27→17:46)
[2022-01-23] MEDS: Senna/Docusate Sodium 1 Tablet PO ×2 (05:29→17:49)
[2022-01-23] MEDS: amLODIPine 10 MG Tablet PO (05:29)
[2022-01-23] MEDS: Pantoprazole Sodium 20 MG Tablet PO (05:29)
[2022-01-23] MEDS: Levothyroxine 88 MCG Tablet PO (05:29)
[2022-01-23] MEDS: Clopidogrel Bisulfate 75 MG Tablet PO (05:29)
[2022-01-23] MEDS: Acetaminophen 500 MG Tablet 1000 MG PO ×3 (05:42→22:28)
[2022-01-23] MEDS: predniSONE 5 MG Tablet 2.5 MG PO (08:35)
[2022-01-23] MEDS: Folic Acid 1 MG Tablet 2 MG PO (08:35)
[2022-01-23] MEDS: Aspirin 81 MG TAB.CHEW PO (08:35)
[2022-01-23] MEDS: traMADol 50 MG Tablet PO (08:37)
[2022-01-23 10:00] VITALS: PULSE 60; RESP 16; O2SAT 99
[2022-01-23] MEDS: Saliva Substitute 237 ML BOTTLE 15 ML MUCOUS MEM (13:29)
[2022-01-23] MEDS: Menthol/Lanolin/Calamine/Znox 113 GM Tube 1 APPLIC TOPICAL ×2 (13:30→22:31)
[2022-01-23 14:53] VITALS: BP 148/80; PULSE 68; RESP 18; TEMP 36.4; O2SAT 92
[2022-01-23 17:46] VITALS: PULSE 68
[2022-01-23] MEDS: MELATONIN 10 MG TABLET PO (22:29)
[2022-01-23] MEDS: Atorvastatin Calcium 40 MG Tablet PO (22:29)
[2022-01-24] MEDS: Arthritis Pain Compound 60 CLICK TUBE TOPICAL ×2 (05:41→17:45)
[2022-01-24] MEDS: Clopidogrel Bisulfate 75 MG Tablet PO (05:42)
[2022-01-24] MEDS: Polyethylene Glycol 3350 17 GM PACKET 8.5 GM PO (05:42)
[2022-01-24 05:43] VITALS: BP 140/80; PULSE 69
[2022-01-24] MEDS: Metoprolol Tartrate 25 MG Tablet 12.5 MG PO ×2 (05:43→17:43)
[2022-01-24] MEDS: Levothyroxine 88 MCG Tablet PO (05:43)
[2022-01-24] MEDS: amLODIPine 10 MG Tablet PO (05:43)
[2022-01-24] MEDS: Acetaminophen 500 MG Tablet 1000 MG PO ×3 (05:43→21:53)
[2022-01-24] MEDS: Pantoprazole Sodium 20 MG Tablet PO (05:43)
[2022-01-24] MEDS: predniSONE 5 MG Tablet 2.5 MG PO (08:40)
[2022-01-24] MEDS: Aspirin 81 MG TAB.CHEW PO (08:40)
[2022-01-24] MEDS: Folic Acid 1 MG Tablet 2 MG PO (08:40)
[2022-01-24] MEDS: traMADol 50 MG Tablet PO (08:42)
[2022-01-24] MEDS: Menthol/Lanolin/Calamine/Znox 113 GM Tube 1 APPLIC TOPICAL ×2 (12:06→22:08)
[2022-01-24 16:00] VITALS: BP 146/57; PULSE 82; RESP 19; TEMP 36.4; O2SAT 82
--- NOTE | 2022-01-24 16:41 | CASEMGMT ---
Addendum entered by Heide Loya 01/25/22 08:40: [facility] requested updated clinicals. Sent via [employer]. Original Note: Social Work Two daughters requesting to speak with this worker. Spoke with daughters and answered questions. Dtrs decided with pt, for her to transfer to [facility], where she is in-network with insurance. SW notified [facility] and [facility]. Have not received and outcome from insurance yet. Will continue to follow. Heide Loya, TOY DESIGNER APPLICATION SUPPORT ANALYST
[2022-01-24 17:43] VITALS: BP 148/93; PULSE 70
[2022-01-24] MEDS: Senna/Docusate Sodium 1 Tablet PO (17:45)
[2022-01-24] MEDS: MELATONIN 10 MG TABLET PO (21:53)
[2022-01-24] MEDS: Atorvastatin Calcium 40 MG Tablet PO (21:53)
[2022-01-24] MEDS: ALPRAZolam 0.25 MG Tablet PO (21:57)
[2022-01-24 22:00] VITALS: PULSE 60; RESP 14; O2SAT 96
[2022-01-25] MEDS: Polyethylene Glycol 3350 17 GM PACKET 8.5 GM PO (05:33)
[2022-01-25] MEDS: Acetaminophen 500 MG Tablet 1000 MG PO ×3 (05:33→21:16)
[2022-01-25] MEDS: Clopidogrel Bisulfate 75 MG Tablet PO (05:34)
[2022-01-25] MEDS: Pantoprazole Sodium 20 MG Tablet PO (05:34)
[2022-01-25] MEDS: Levothyroxine 88 MCG Tablet PO (05:34)
[2022-01-25] MEDS: Senna/Docusate Sodium 1 Tablet PO ×2 (05:34→17:18)
[2022-01-25 05:35] VITALS: BP 144/67; PULSE 60
[2022-01-25] MEDS: Metoprolol Tartrate 25 MG Tablet 12.5 MG PO ×2 (05:35→17:18)
[2022-01-25] MEDS: Arthritis Pain Compound 60 CLICK TUBE TOPICAL ×2 (05:35→17:19)
[2022-01-25] MEDS: amLODIPine 10 MG Tablet PO (05:36)
[2022-01-25 05:39] LABS: Absolute Lymphocyte Count 1.36 X10^3/uL (0.83-4.51); Absolute Neutrophil Count 4.1 X10^3/uL (2.0-7.7); Basophil# 0.09 X10^3/uL; Basophil% 1.4 % (0-1); Eosinophil# 0.13 X10^3/uL; Hematocrit 39.2 % (37-47); Hemoglobin 13.2 g/dL (12.0-15.0); Lymphocyte # 1.36 X10^3/ul (0.83-4.51); Lymphocyte % 21.2 % (19-41); Mean Corp Hgb Conc 33.7 g/dL (32-36); Mean Corpuscular Volume 95.1 fL (81-99); Mean Platelet Vol. 8.7 fl (6.2-12.0); Monocyte% 10.9 % (0-10); NRBC Flagged by Analyzer 0 % (0-5); Neutrophil # 4.11 X10^3/uL (2.7-7.7); Neutrophil % 63.9 % (47-70); Platelet Count 255 K/mm3 (150-450); RBC Distribution Width CV 16.9 % (11.6-14.6); RBC Distribution Width SD 58.6 fl (35.1-43.9); Red Blood Count 4.12 M/mm3 (4.2-5.4); White Blood Count 6.4 K/mm3 (4.4-11.0)
[2022-01-25 06:11] LABS: Anion Gap 6 (5-15); BUN 12 mg/dL (7-18); BUN/Creat Ratio 23.2 RATIO (10-20); Calcium,Total 8.7 mg/dL (8.5-10.1); Chloride 108 mmol/L (98-107); Creatinine, Serum 0.52 mg/dL (0.55-1.02); EST Glomerular Filtration Rate 120 mL/min (>60); Est Glom Filt Rate - Afr Amer 145 mL/min (>60); Estimated Creatinine Clearance 29.54 ml/min; Glucose 92 mg/dL (74-106); Potassium 3.7 mmol/L (3.5-5.1); Sodium Level 140 mmol/L (136-145)
[2022-01-25] MEDS: predniSONE 5 MG Tablet 2.5 MG PO (08:21)
[2022-01-25] MEDS: Aspirin 81 MG TAB.CHEW PO (08:21)
[2022-01-25] MEDS: Folic Acid 1 MG Tablet 2 MG PO (08:21)
[2022-01-25 10:00] VITALS: PULSE 62; RESP 18; O2SAT 97
[2022-01-25] MEDS: Menthol/Lanolin/Calamine/Znox 113 GM Tube 1 APPLIC TOPICAL ×2 (10:05→21:21)
[2022-01-25 15:16] VITALS: BP 130/79; PULSE 69; RESP 18; TEMP 36.2; O2SAT 93
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
[2022-01-25 17:18] VITALS: PULSE 68
--- NOTE | 2022-01-25 19:59 | PCM.DC.SUM ---
Providers Date of Admission: 01/03/22 Primary Care Physician: Dr. Catia Christian DO Reason For Visit: ACUTE CVA Diagnosis Discharge Diagnosis (1) Debility: Status: Acute Code(s): R53.81 - Other malaise (2) Stroke: Status: Resolved Code(s): I63.9 - Cerebral infarction, unspecified (3) Hypokalemia: Status: Acute Code(s): E87.6 - Hypokalemia (4) Stenosis of right internal carotid artery: Status: Acute Code(s): I65.21 - Occlusion and stenosis of right carotid artery (5) Vitamin D deficiency: Status: Acute Code(s): E55.9 - Vitamin D deficiency, unspecified (6) Hypothyroidism: Status: Acute Code(s): E03.9 - Hypothyroidism, unspecified (7) Hypertension: Status: Chronic Code(s): I10 - Essential (primary) hypertension (8) GERD (gastroesophageal reflux disease): Status: Acute Code(s): K21.9 - Gastro-esophageal reflux disease without esophagitis (9) Hyperlipidemia: Status: Acute Code(s): E78.5 - Hyperlipidemia, unspecified (10) Hyperparathyroidism: Status: Acute Code(s): E21.3 - Hyperparathyroidism, unspecified Plan 86 year old female with below past medical history hospitalized for acute stroke, complicated by right internal carotid artery stenosis, hypokalemia, admitted to TCU with debility, here for rehabilitation, strengthening, prior to discharge home alone. Debility - PT/OT/ST. Pain - Tylenol 1000mg q6h prn pain (1-10). Bowel - senna/colace 1 tablet bid, MOM 30ml daily prn. Adult immunization - Administer pneumonia vaccine, covid19 vaccine, flu vaccine as appropriate. DVT prophylaxis - Hold on dual antiplatelet therapy. Stroke - Aspirin 81mg daily, Plavix 75mg daily thru 02/01/2022. Hyperlipidemia - Atorvastatin 40mg qhs. Right internal carotid artery stenosis - Consider vascular surgery once stable. Nutrition - Ensure Plus 120ml po 4x/day. Vitamin D deficiency - D2 1.25mg per week. Rheum - MTX 15mg per week, Folic acid 2mg daily, Prednisone 7.5mg daily. Hypothyroidism - Levothyroxine 88mcg daily. GERD - Pantoprazole 20mg daily. Medications at Discharge Home Medications prednisone 10 mg tablet 2.5 mg PO DAILY Check with primary doctor 01/08/13 ergocalciferol (vitamin D2) 1,250 mcg (50,000 unit) capsule (Vitamin D2) 50,000 unit PO SA Supplement 06/28/17 levothyroxine 88 mcg tablet 88 mcg PO DAILY Thyroid 06/28/17 folic acid 1 mg tablet 2 mg PO DAILY supplement 01/02/22 methotrexate sodium 2.5 mg tablet 15 mg PO QWEEK Check with primary doctor 01/02/22 acetaminophen 325 mg tablet (Tylenol) 650 mg PO Q6H PRN PRN Pain Score 1-10 #0 tabs 01/03/22 aspirin 81 mg chewable tablet 81 mg PO BREAKFAST Heart 01/03/22 atorvastatin 40 mg tablet (Lipitor) 40 mg PO DAILY Cholesterol 01/03/22 calcitriol 0.25 mcg capsule 2 mcg PO DAILY Supplement 01/03/22 pantoprazole 20 mg tablet,delayed release 20 mg PO DAILY GERD 01/03/22 acetaminophen 500 mg tablet 1,000 mg PO Q8 #0 tabs 01/25/22 amlodipine 10 mg tablet 10 mg PO DAILY #0 tabs 01/25/22 clopidogrel 75 mg tablet (Plavix) 75 mg PO DAILY Blood Thinner 2 days #2 tabs 01/25/22 melatonin 10 mg sublingual tablet 10 mg PO QHS #0 tabs 01/25/22 metoprolol tartrate 25 mg tablet 12.5 mg PO BID #0 tabs 01/25/22 polyethylene glycol 3350 17 gram oral powder packet 8.5 g PO DAILY #0 ea 01/25/22 sennosides 8.6 mg-docusate sodium 50 mg tablet (Stool Softener-Stimulant Laxative) 1 tab PO BID #0 tabs 01/25/22 Hospital Course Operations None Procedures None Summary of Care Provided Minutes Spent on Discharge: 35 Hospital Course: 86 year old female with below past medical history hospitalized for acute stroke, complicated by right internal carotid artery stenosis, hypokalemia, admitted to TCU with debility, here for rehabilitation, strengthening, prior to discharge home alone. Plavix 75mg daily thru 02/01/2022, then stop. Aspirin 81mg daily indefinitely. 01/25/2022 Resident had steroid injection right knee for osteoarthritis right knee. Discharge to [facility], nonskilled, private pay. Physical Exam Const alert General Appearance: cooperative HEENT normocephalic Eyes PERRL and EOMs intact bilaterally Neck supple, no JVD and no carotid bruits Resp normal respiratory effort, normal air movement and clear to auscultation bilaterally Cardio regular rate and regular rhythm GI normal to inspection, nondistended, normoactive bowel sounds, non-tender and non-distended Extremity normal capillary refill General Extremity: Negative for edema Skin no rashes or lesions noted General Skin Exam: no breakdown Psych affect normal Appearance: appropriate Weight / BMI Weight Weight: 63.684 kg Body Mass Index (BMI) 27.4 ABG / Lab / Microbiology Data Result Diagrams: 01/25/22 05:08 01/25/22 05:08 Laboratory: Laboratory Results - last 24 hr 01/25/22 05:08: WBC 6.4, RBC 4.12 L, Hgb 13.2, Hct 39.2, MCV 95.1, MCH 32.0, MCHC 33.7, RDW Std Deviation 58.6 H, RDW Coeff of Liset 16.9 H, Plt Count 255, MPV 8.7, Immature Gran % (Auto) 0.600, Neut % (Auto) 63.9, Lymph % (Auto) 21.2, Mccurtain % (Auto) 10.9 H, Eos % (Auto) 2.0, Baso % (Auto) 1.4 H, Absolute Neuts (auto) 4.1, Absolute Lymphs (auto) 1.36, Nucleated RBC % 0 01/25/22 05:08: Sodium 140, Potassium 3.7, Chloride 108 H, Carbon Dioxide 26.0, Anion Gap 6, BUN 12, Creatinine 0.52 L, Estim Creat Clear Calc 29.54, Est GFR (MDRD) Af Amer 145, Est GFR (MDRD) Non-Af 120, BUN/Creatinine Ratio 23.2 H, Glucose 92, Calcium 8.7 Microbiology: Microbiology 01/07/22 07:00 Nasal Secretion SARS-CoV-2 Antigen (Rapid) - Final 01/05/22 09:00 Nasal Secretion SARS-CoV-2 Antigen (Rapid) - Final D/C Instructions Discharge Diet: No restrictions Discharge Activity: Return to Normal Activity, May Shower and Use Walker Weight Bearing Status: Weight bearing as tolerated Call your doctor if you observe: Fever of 101 or Higher, Inability to urinate, Inability to have a bowel movement, Shortness of breath, Dizziness, Fainting spells, Swelling in the ankles, Chest pain and Uncontrolled pain Additional Instructions: Discharge to [facility], nonskilled, private pay. Meaningful Use Info Meaningful Use Diagnoses (Choose all that apply): Ischemic CVA CVA Therapy Assessed for PT,OT and/or ST?: Yes Ischemic Stroke Antithrombotic order at d/c?: Yes Dx of Atrial fib/flutter?: No Statins at discharge?: Yes Primary Dx Acute Ischemic CVA?: Yes IV tPA ordered during stay?: No Reason IV t-PA not ordered: Treatment not Indicated Discharge Plan Admission Admit Date/Time: 01/03/22 18:09 Primary Reason for Your Visit: Debility. Attending Provider: Clif Babb Chi Primary Care Provider: Catia Christian Instructions Additional Instructions / Restrictions: Discharge to [facility] [place], nonskilled, private pay. Discharge Orders/Prescriptions Prescriptions: New polyethylene glycol 3350 17 gram Powder In Packet 8.5 g PO DAILY Qty: 0 0RF sennosides-docusate sodium [Stool Softener-Stimulant Laxat] 8.6-50 mg Tablet 1 tab PO BID Qty: 0 0RF acetaminophen 500 mg Tablet 1,000 mg PO Q8 Qty: 0 0RF amlodipine 10 mg Tablet 10 mg PO DAILY Qty: 0 0RF metoprolol tartrate 25 mg Tablet 12.5 mg PO BID Qty: 0 0RF melatonin 10 mg Tablet, Sublingual 10 mg PO QHS Qty: 0 0RF Continued prednisone 10 MG tablet 2.5 mg PO DAILY levothyroxine 88 MCG tablet 88 mcg PO DAILY ergocalciferol (vitamin D2) [Vitamin D2] 50,000 UNIT capsule 50,000 unit PO SA Label Comments: Q 2 WEEKS Rx Instructions: EVERY OTHER WEEK ON SUNDAY methotrexate sodium 2.5 mg tablet 15 mg PO QWEEK Label Comments: Take 6 Tablet(s) Oral once a week Rx Instructions: Pt takes on folic acid 1 mg Tablet 2 mg PO DAILY atorvastatin [Lipitor] 40 mg tablet 40 mg PO DAILY pantoprazole 20 mg tablet,delayed release (DR/EC) 20 mg PO DAILY aspirin 81 mg tablet,chewable 81 mg PO BREAKFAST clopidogrel [Plavix] 75 mg tablet 75 mg PO DAILY 2 Days Qty: 2 0RF Rx Instructions: Stop after 02/01/2022. No Action acetaminophen [Tylenol] 325 mg Tablet 650 mg PO Q6H PRN PRN (Reason: Pain Score 1-10) Qty: 0 0RF calcitriol 0.25 mcg capsule 2 mcg PO DAILY Referrals / Follow Up: Catia Christian DO [Primary Care Provider] - Disposition Disposition (needs filled in before D/C Order can be placed): NonSkilled NH/Intermed Care
--- NOTE | 2022-01-25 20:14 | TREXTCAR_ITS ---
Diet Diet Order/Speech Therapy: 01/03/22 18:28 Diet: Regular - General Food consistency:: Easy to Chew Liquid Consistency:: Regular/Thin Is pt able to select menu?: Yes Diet Comments: No straws, Chin tuck with ALL liquids, Distant Supervision Routine Orders/Code Status Code Status: DNRCC Therapies Weight Bearing: Weight bearing as tolerated Extremity Affected:: Bilateral Lower Physical Therapy: Eval and Treat Occupational Therapy: Eval and Treat Speech Therapy: Eval and Treat Problem/Diagnosis (1) Debility: Status: Acute Code(s): R53.81 - Other malaise (2) Stroke: Status: Resolved Code(s): I63.9 - Cerebral infarction, unspecified (3) Hypokalemia: Status: Acute Code(s): E87.6 - Hypokalemia (4) Stenosis of right internal carotid artery: Status: Acute Code(s): I65.21 - Occlusion and stenosis of right carotid artery (5) Vitamin D deficiency: Status: Acute Code(s): E55.9 - Vitamin D deficiency, unspecified (6) Hypothyroidism: Status: Acute Code(s): E03.9 - Hypothyroidism, unspecified (7) Hypertension: Status: Chronic Code(s): I10 - Essential (primary) hypertension (8) GERD (gastroesophageal reflux disease): Status: Acute Code(s): K21.9 - Gastro-esophageal reflux disease without esophagitis (9) Hyperlipidemia: Status: Acute Code(s): E78.5 - Hyperlipidemia, unspecified (10) Hyperparathyroidism: Status: Acute Code(s): E21.3 - Hyperparathyroidism, unspecified Plan 86 year old female with below past medical history hospitalized for acute stroke, complicated by right internal carotid artery stenosis, hypokalemia, admitted to TCU with debility, here for rehabilitation, strengthening, prior to discharge home alone. * Debility - PT/OT/ST. * Pain - Tylenol 1000mg q6h prn pain (1-10). * Bowel - senna/colace 1 tablet bid, MOM 30ml daily prn. * Adult immunization - Administer pneumonia vaccine, covid19 vaccine, flu vaccine as appropriate. * DVT prophylaxis - Hold on dual antiplatelet therapy. * Stroke - Aspirin 81mg daily, Plavix 75mg daily thru 02/01/2022. * Hyperlipidemia - Atorvastatin 40mg qhs. * Right internal carotid artery stenosis - Consider vascular surgery once stable. * Nutrition - Ensure Plus 120ml po 4x/day. * Vitamin D deficiency - D2 1.25mg per week. * Rheum - MTX 15mg per week, Folic acid 2mg daily, Prednisone 7.5mg daily. * Hypothyroidism - Levothyroxine 88mcg daily. * GERD - Pantoprazole 20mg daily. Allergies/Procedures Done in Hospital Allergies abaloparatide [From Tymlos] Adverse Reaction (Severe, Verified 01/02/22 02:34) vomitting Procedures: None Type of Care/Length of Stay Estimated LOS: More Than 30 Days Type of Care Needed: Intermediate Rehab Potential: Good Prognosis: Good Additional Orders/Day of Discharge Day of Discharge: 01/30/22 Dietary and Speech Recommendations Dietitian Recommendations/Changes: Will continue liberal regular diet per res preference Speech Linguistic Eval Summary: Presents w/ mild dysarthria characterized by reduced volume, breathy quality and imprecise articulation. In conversation w/ COMMUNICATION STUDIES PROFESSOR, the patient is roughly 90% intelligible. Sustained ah - 10.68 seconds, indicating minimally decreased breath support. Diadochokinetic rates completed. /p^/ - 2.4 syllables per second (WNL = at least 5.0 syllables per second), /t^/ - 2.8 syllables per second (WNL = at least 4.8 syllables per second), /k^/ - 2.4 syllables per second (WNL = at least 4.4 syllables per second). /p^t^k^/ - 1.4 syllables per second (WNL = at least 3.6 syllables per second). Noted mininimal imprecision w/ diadochokinetic rate. Avg /s/ ratio - 1.6s, unable to accurately produce /z/ despite max multimodal cueing. (WNL = 20-25s for both /s/ and /z/ w/ 1:1 ratio). Patient attributing difficulty w/ production of /z/ to false teeth. Would benefit from skilled ST to improve breath support, implement oral motor strengthening, and instruct in strategies to improve articulation. Discharge Plan Admission Admit Date/Time: 01/03/22 18:09 Primary Reason for Your Visit: Debility. Attending Provider: Clif Babb Chi Primary Care Provider: Catia Christian Instructions Additional Instructions / Restrictions: Discharge to [facility], nonskilled, private pay. Discharge Orders/Prescriptions Prescriptions: New polyethylene glycol 3350 17 gram Powder In Packet 8.5 g PO DAILY Qty: 0 0RF sennosides-docusate sodium [Stool Softener-Stimulant Laxat] 8.6-50 mg Tablet 1 tab PO BID Qty: 0 0RF acetaminophen 500 mg Tablet 1,000 mg PO Q8 Qty: 0 0RF amlodipine 10 mg Tablet 10 mg PO DAILY Qty: 0 0RF metoprolol tartrate 25 mg Tablet 12.5 mg PO BID Qty: 0 0RF melatonin 10 mg Tablet, Sublingual 10 mg PO QHS Qty: 0 0RF Continued prednisone 10 MG tablet 2.5 mg PO DAILY levothyroxine 88 MCG tablet 88 mcg PO DAILY ergocalciferol (vitamin D2) [Vitamin D2] 50,000 UNIT capsule 50,000 unit PO SA Label Comments: Q 2 WEEKS Rx Instructions: EVERY OTHER WEEK ON SUNDAY methotrexate sodium 2.5 mg tablet 15 mg PO QWEEK Label Comments: Take 6 Tablet(s) Oral once a week Rx Instructions: Pt takes on folic acid 1 mg Tablet 2 mg PO DAILY atorvastatin [Lipitor] 40 mg tablet 40 mg PO DAILY pantoprazole 20 mg tablet,delayed release (DR/EC) 20 mg PO DAILY aspirin 81 mg tablet,chewable 81 mg PO BREAKFAST clopidogrel [Plavix] 75 mg tablet 75 mg PO DAILY 2 Days Qty: 2 0RF Rx Instructions: Stop after 02/01/2022. No Action acetaminophen [Tylenol] 325 mg Tablet 650 mg PO Q6H PRN PRN (Reason: Pain Score 1-10) Qty: 0 0RF calcitriol 0.25 mcg capsule 2 mcg PO DAILY Referrals / Follow Up: Catia Christian DO [Primary Care Provider] - Disposition Disposition (needs filled in before D/C Order can be placed): NonSkilled NH/Intermed Care
[2022-01-25] MEDS: Atorvastatin Calcium 40 MG Tablet PO (21:16)
[2022-01-25] MEDS: MELATONIN 10 MG TABLET PO (21:16)
[2022-01-26] MEDS: Arthritis Pain Compound 60 CLICK TUBE TOPICAL ×2 (05:55→17:58)
[2022-01-26] MEDS: Polyethylene Glycol 3350 17 GM PACKET 8.5 GM PO (05:57)
[2022-01-26] MEDS: Clopidogrel Bisulfate 75 MG Tablet PO (05:58)
[2022-01-26] MEDS: Acetaminophen 500 MG Tablet 1000 MG PO ×3 (05:59→21:01)
[2022-01-26] MEDS: Levothyroxine 88 MCG Tablet PO (05:59)
[2022-01-26] MEDS: amLODIPine 10 MG Tablet PO (05:59)
[2022-01-26] MEDS: Pantoprazole Sodium 20 MG Tablet PO (05:59)
[2022-01-26 06:01] VITALS: BP 146/77; PULSE 58
[2022-01-26] MEDS: Metoprolol Tartrate 25 MG Tablet 12.5 MG PO ×2 (06:01→17:25)
[2022-01-26] MEDS: Folic Acid 1 MG Tablet 2 MG PO (08:28)
[2022-01-26] MEDS: predniSONE 5 MG Tablet 2.5 MG PO (08:28)
[2022-01-26] MEDS: Aspirin 81 MG TAB.CHEW PO (08:28)
[2022-01-26] MEDS: traMADol 50 MG Tablet PO (08:36)
[2022-01-26] MEDS: Methotrexate 2.5 MG Tablet 15 MG PO (10:34)
[2022-01-26] MEDS: Menthol/Lanolin/Calamine/Znox 113 GM Tube 1 APPLIC TOPICAL ×2 (10:35→20:53)
--- NOTE | 2022-01-26 13:38 | MDS.RN ---
Pain interview for TROY 01/30/22
[2022-01-26 15:11] VITALS: BP 141/80; PULSE 57; RESP 17; TEMP 36.3; O2SAT 96
[2022-01-26 17:25] VITALS: BP 166/87; PULSE 60
[2022-01-26] MEDS: Senna/Docusate Sodium 1 Tablet PO (17:26)
[2022-01-26] MEDS: ALPRAZolam 0.25 MG Tablet PO (20:57)
[2022-01-26 21:00] VITALS: PULSE 57; RESP 16; O2SAT 57
[2022-01-26] MEDS: MELATONIN 10 MG TABLET PO (21:01)
[2022-01-26] MEDS: Atorvastatin Calcium 40 MG Tablet PO (21:01)
[2022-01-27] MEDS: Polyethylene Glycol 3350 17 GM PACKET 8.5 GM PO (04:48)
[2022-01-27 04:50] VITALS: BP 151/80; PULSE 59
[2022-01-27] MEDS: amLODIPine 10 MG Tablet PO (04:50)
[2022-01-27] MEDS: Levothyroxine 88 MCG Tablet PO (04:50)
[2022-01-27] MEDS: Metoprolol Tartrate 25 MG Tablet 12.5 MG PO ×2 (04:50→16:37)
[2022-01-27] MEDS: Arthritis Pain Compound 60 CLICK TUBE TOPICAL ×2 (04:50→16:38)
[2022-01-27] MEDS: Clopidogrel Bisulfate 75 MG Tablet PO (04:51)
[2022-01-27] MEDS: Pantoprazole Sodium 20 MG Tablet PO (04:51)
[2022-01-27] MEDS: Acetaminophen 500 MG Tablet 1000 MG PO ×3 (04:51→21:37)
[2022-01-27] MEDS: predniSONE 5 MG Tablet 2.5 MG PO (08:28)
[2022-01-27] MEDS: Folic Acid 1 MG Tablet 2 MG PO (08:28)
[2022-01-27] MEDS: Aspirin 81 MG TAB.CHEW PO (08:28)
[2022-01-27] MEDS: traMADol 50 MG Tablet PO (08:32)
[2022-01-27 09:42] VITALS: PULSE 70; RESP 16; O2SAT 96
[2022-01-27] MEDS: Menthol/Lanolin/Calamine/Znox 113 GM Tube 1 APPLIC TOPICAL ×2 (12:12→21:35)
--- NOTE | 2022-01-27 12:43 | CASEMGMT ---
Social Work BIMS and PHQ-9 completed for MDS assessment. Heide Loya, DIVISION CONTROLLER [employer]
[2022-01-27 13:07] VITALS: BP 136/72; PULSE 69; RESP 18; TEMP 36.2; O2SAT 94
[2022-01-27 16:37] VITALS: BP 144/86; PULSE 69
[2022-01-27] MEDS: Senna/Docusate Sodium 1 Tablet PO (16:37)
[2022-01-27] MEDS: MELATONIN 10 MG TABLET PO (21:36)
[2022-01-27] MEDS: Atorvastatin Calcium 40 MG Tablet PO (21:36)
[2022-01-27] MEDS: ALPRAZolam 0.25 MG Tablet PO (21:40)
[2022-01-28] MEDS: Arthritis Pain Compound 60 CLICK TUBE TOPICAL ×2 (05:19→17:40)
[2022-01-28] MEDS: Acetaminophen 500 MG Tablet 1000 MG PO ×3 (05:19→21:51)
[2022-01-28] MEDS: Polyethylene Glycol 3350 17 GM PACKET 8.5 GM PO (05:19)
[2022-01-28 05:20] VITALS: BP 145/83; PULSE 60
[2022-01-28] MEDS: Levothyroxine 88 MCG Tablet PO (05:20)
[2022-01-28] MEDS: Metoprolol Tartrate 25 MG Tablet 12.5 MG PO ×2 (05:20→17:40)
[2022-01-28] MEDS: Ergocalciferol 1.25 MG (50, 000 UNIT) Capsule PO (05:20)
[2022-01-28] MEDS: Clopidogrel Bisulfate 75 MG Tablet PO (05:20)
[2022-01-28] MEDS: amLODIPine 10 MG Tablet PO (05:20)
[2022-01-28] MEDS: Pantoprazole Sodium 20 MG Tablet PO (05:20)
[2022-01-28] MEDS: Senna/Docusate Sodium 1 Tablet PO ×2 (05:23→17:41)
[2022-01-28 08:40] VITALS: PULSE 71; RESP 18; O2SAT 96
[2022-01-28] MEDS: Folic Acid 1 MG Tablet 2 MG PO (08:53)
[2022-01-28] MEDS: Aspirin 81 MG TAB.CHEW PO (08:53)
[2022-01-28] MEDS: predniSONE 5 MG Tablet 2.5 MG PO (08:55)
[2022-01-28] MEDS: Saliva Substitute 237 ML BOTTLE 15 ML MUCOUS MEM ×2 (08:56→17:43)
[2022-01-28 12:15] VITALS: BP 154/76; PULSE 68; RESP 14; TEMP 36.5; O2SAT 93
[2022-01-28] MEDS: Menthol/Lanolin/Calamine/Znox 113 GM Tube 1 APPLIC TOPICAL ×2 (14:20→21:52)
[2022-01-28 17:40] VITALS: PULSE 61
[2022-01-28] MEDS: Atorvastatin Calcium 40 MG Tablet PO (21:51)
[2022-01-28] MEDS: MELATONIN 10 MG TABLET PO (21:51)
[2022-01-28] MEDS: ALPRAZolam 0.25 MG Tablet PO (21:53)
[2022-01-29] MEDS: Polyethylene Glycol 3350 17 GM PACKET 8.5 GM PO (04:31)
[2022-01-29 04:32] VITALS: BP 144/85; PULSE 63
[2022-01-29] MEDS: Metoprolol Tartrate 25 MG Tablet 12.5 MG PO ×2 (04:32→16:58)
[2022-01-29] MEDS: Acetaminophen 500 MG Tablet 1000 MG PO ×3 (04:32→21:53)
[2022-01-29] MEDS: amLODIPine 10 MG Tablet PO (04:32)
[2022-01-29] MEDS: Arthritis Pain Compound 60 CLICK TUBE TOPICAL ×2 (04:32→16:59)
[2022-01-29] MEDS: Pantoprazole Sodium 20 MG Tablet PO (04:32)
[2022-01-29] MEDS: Clopidogrel Bisulfate 75 MG Tablet PO (04:32)
[2022-01-29] MEDS: Levothyroxine 88 MCG Tablet PO (04:32)
[2022-01-29] MEDS: Aspirin 81 MG TAB.CHEW PO (07:52)
[2022-01-29] MEDS: predniSONE 5 MG Tablet 2.5 MG PO (07:52)
[2022-01-29] MEDS: Folic Acid 1 MG Tablet 2 MG PO (07:52)
[2022-01-29] MEDS: Menthol/Lanolin/Calamine/Znox 113 GM Tube 1 APPLIC TOPICAL ×2 (07:53→21:58)
[2022-01-29 14:06] VITALS: BP 143/81; PULSE 65; RESP 18; TEMP 36.6; O2SAT 97
[2022-01-29 16:58] VITALS: BP 143/81; PULSE 65
[2022-01-29] MEDS: MELATONIN 10 MG TABLET PO (21:53)
[2022-01-29] MEDS: Atorvastatin Calcium 40 MG Tablet PO (21:53)
[2022-01-29] MEDS: traMADol 50 MG Tablet PO (21:56)
[2022-01-30] MEDS: Arthritis Pain Compound 60 CLICK TUBE TOPICAL (05:38)
[2022-01-30] MEDS: Polyethylene Glycol 3350 17 GM PACKET 8.5 GM PO (05:38)
[2022-01-30] MEDS: Clopidogrel Bisulfate 75 MG Tablet PO (05:39)
[2022-01-30] MEDS: Pantoprazole Sodium 20 MG Tablet PO (05:39)
[2022-01-30] MEDS: Acetaminophen 500 MG Tablet 1000 MG PO (05:39)
[2022-01-30] MEDS: Levothyroxine 88 MCG Tablet PO (05:40)
[2022-01-30] MEDS: amLODIPine 10 MG Tablet PO (05:42)
[2022-01-30 05:46] VITALS: BP 143/84; PULSE 60
[2022-01-30] MEDS: Metoprolol Tartrate 25 MG Tablet 12.5 MG PO (05:46)
[2022-01-30] MEDS: predniSONE 5 MG Tablet 2.5 MG PO (08:05)
[2022-01-30] MEDS: Folic Acid 1 MG Tablet 2 MG PO (08:05)
[2022-01-30] MEDS: Aspirin 81 MG TAB.CHEW PO (08:05)
[2022-01-30 10:00] VITALS: PULSE 60; RESP 16; O2SAT 97
[2022-01-30 13:38] VITALS: BP 156/86; PULSE 68; RESP 16; TEMP 36.5; O2SAT 94
== END 2022-01-30 14:30 | disposition intermediate care facility (04) | DRG 57 ==
PROVIDERS: Admitting Provider Family Medicine Geriatric Medicine; PCP Family Medicine; Visit Provider Family Medicine Geriatric Medicine
DX: I69.331 Monoplegia of upper limb following cerebral infarction affecting right dominant side (principal); E03.9 Hypothyroidism, unspecified; E21.3 Hyperparathyroidism, unspecified; E55.9 Vitamin D deficiency, unspecified; E78.5 Hyperlipidemia, unspecified; K21.9 Gastro-esophageal reflux disease without esophagitis; I10 Essential (primary) hypertension; I69.398 Other sequelae of cerebral infarction; E87.6 Hypokalemia; Z79.82 Long term (current) use of aspirin; Z79.899 Other long term (current) drug therapy; Z79.52 Long term (current) use of systemic steroids; Z23 Encounter for immunization
CPT/HCPCS: 36415; 71101; 73502; 74230; 80048; 85025; 87426; 87811; 90677; 92507; 92523; 92526; 92610; 92611; 97110; 97116; 97162; 97166; 97530; 97535; 97802; G0009; J8610

== ENCOUNTER → 2022-01-13 | Outpatient (CLI) | payer MEDICARE, SELFPAY ==
--- NOTE | 2022-01-13 15:23 | VDLE_ITS ---
Reason For Study: SWELLING RIGHT GSV is normal. CFV is compressible, spontaneous, phasic, competent and demonstrates normal augmentation. FV is compressible, spontaneous, phasic, competent and demonstrates normal augmentation. POP V is compressible, spontaneous, phasic, competent and demonstrates normal augmentation. T/P Trunk is compressible. PTV is compressible. RT PerV is compressible. Procedure This is a venous duplex using B-mode, color flow and spectral Doppler. Exam performed portable in patient room. The study was technically difficult. The exam was diagnostic. A preliminary report was called and/or faxed to [facility]. VL/Venous Duplex US, Unilateral Interpretation Summary Deep veins of the right lower extremity are patent and compressible segmentally . There is no evidence of right lower extremity deep vein thrombosis. Valvular competence tosin ears intact within the proximal deep venous system on the right . The right great saphenous vein a ppears patent and compressible segmentally. Ordering Physician: Clif Babb Chi Referring Physician: Catia Christian Performed By: Hortencia Perry, RDCS, RVT
== END | disposition home or self-care (01) ==
LOC: CVS 15:00
PROVIDERS: PCP Family Medicine; Visit Provider Family Medicine Geriatric Medicine
DX: R22.41 Localized swelling, mass and lump, right lower limb (principal)
CPT/HCPCS: 93971

== ENCOUNTER → 2022-02-20 | Outpatient (REF) | payer MEDICARE, SELFPAY ==
[2022-02-20 09:01] LABS: Hematocrit 44.3 % (37-47); Hemoglobin 14.4 g/dL (12.0-15.0); Mean Corp Hgb Conc 32.5 g/dL (32-36); Mean Corpuscular Hgb 31.4 pg (27.0-32.0); Mean Corpuscular Volume 96.5 fL (81-99); Mean Platelet Vol. 8.9 fl (6.2-12.0); Platelet Count 297 K/mm3 (150-450); RBC Distribution Width CV 15.8 % (11.6-14.6); RBC Distribution Width SD 56.3 fl (35.1-43.9); Red Blood Count 4.59 M/mm3 (4.2-5.4)
[2022-02-20 09:16] LABS: ALB/GLOB Ratio 0.8 RATIO (0.9-2.4); AST(SGOT) 17 U/L (15-37); Alanine Aminotransfer ALT/SGPT 32 U/L (13-56); Albumin, Serum 3.3 g/dL (3.2-5.0); Alkaline Phosphatase 98 U/L (45-117); Anion Gap 11 (5-15); BUN 15 mg/dL (7-18); BUN/Creat Ratio 27.6 RATIO (10-20); CPK Total, Creatine Kinase 40 U/L (26-192); Calcium,Total 9.1 mg/dL (8.5-10.1); Chloride 105 mmol/L (98-107); Cholesterol 138 mg/dL (200); Creatinine, Serum 0.54 mg/dL (0.55-1.02); EST Glomerular Filtration Rate 113 mL/min (>60); Est Glom Filt Rate - Afr Amer 137 mL/min (>60); Globulin 4.1 g/dL (2.2-4.2); Glucose 93 mg/dL (74-106); High Density Lipoprotein 54 mg/dL; Protein, Total 7.4 g/dL (6.4-8.2); Sodium Level 141 mmol/L (136-145); Triglycerides 118 mg/dL; Very Low Density Lipoprotein 24 mg/dL (5-40)
== END ==
LOC: OLS.ACH 04:00
PROVIDERS: PCP Family Medicine; Referring Provider Internal Medicine; Visit Provider Internal Medicine
DX: I69.353 Hemiplegia and hemiparesis following cerebral infarction affecting right non-dominant side (principal)
CPT/HCPCS: 36415; 80053; 80061; 82550; 85027

== ENCOUNTER → 2022-03-23 | Outpatient (CLI) | payer MEDICARE, SELFPAY ==
[2022-03-23] MEDS: 0.9% NaCl Peripheral Flush Adult/Peds IV (08:57)
[2022-03-23 09:03] VITALS: BP 151/74; PULSE 63; RESP 18; TEMP 36.4; O2SAT 98
[2022-03-23] MEDS: Immune Globulin 20 gm Premixed Solution 45.5 BAG IV (09:11)
[2022-03-23] MEDS: Immune Globulin 20 gm Premixed Solution 180 BAG IV (11:01)
[2022-03-23 11:58] VITALS: BP 145/71; PULSE 59; RESP 16; TEMP 36.3; O2SAT 96
== END | disposition home or self-care (01) ==
LOC: MEDOUTP 08:49
PROVIDERS: PCP Family Medicine; Referring Provider Internal Medicine Rheumatology; Visit Provider Internal Medicine Rheumatology
DX: M33.92 Dermatopolymyositis, unspecified with myopathy (principal)
CPT/HCPCS: 96365; 96366; A4216; J1568

== ENCOUNTER → 2022-03-24 | Outpatient (CLI) | payer MEDICARE, SELFPAY ==
[2022-03-24 08:46] VITALS: BP 146/66; PULSE 68; RESP 16; TEMP 36.2; O2SAT 95; BMI 26.9
[2022-03-24] MEDS: 0.9% NaCl Peripheral Flush Adult/Peds IV (08:51)
[2022-03-24] MEDS: DENOSUMAB 60 MG/ML SC (08:51)
[2022-03-24] MEDS: Immune Globulin 20 gm Premixed Solution 45.5 BAG IV (09:01)
[2022-03-24] MEDS: Immune Globulin 20 gm Premixed Solution 180 BAG IV (11:10)
[2022-03-24 12:39] VITALS: BP 150/75; PULSE 66; RESP 16; TEMP 36.4; O2SAT 94
== END | disposition home or self-care (01) ==
LOC: MEDOUTP 08:36
PROVIDERS: PCP Family Medicine; Referring Provider Internal Medicine Rheumatology; Visit Provider Internal Medicine Rheumatology
DX: M81.0 Age-related osteoporosis without current pathological fracture (principal); M33.92 Dermatopolymyositis, unspecified with myopathy
CPT/HCPCS: 96365; 96366; 96372; A4216; J0897; J1568

== ENCOUNTER → 2022-04-12 | Outpatient (CLI) | payer MEDICARE, SELFPAY ==
--- NOTE | 2022-04-12 16:55 | RAD_ITS ---
EXAM: XR CHEST, 2 VIEWS CLINICAL INDICATION: SOB TECHNIQUE: Frontal and lateral views of the chest. This report was created using [employer] report generation technology. COMPARISON: None. FINDINGS: LUNGS AND PLEURAL SPACES: No pleural effusion or pneumothorax. Moderate degenerative changes involving the acromioclavicular joint. No consolidation. HEART: Unremarkable. No cardiac enlargement. MEDIASTINUM: No hilar enlargement. No mediastinal enlargement. BONES/JOINTS: Degenerative changes of the spine at multiple levels on a background of diffuse osteopenia. SOFT TISSUES: Unremarkable. VASCULATURE: Ectatic thoracic aortic arch with atherosclerotic calcifications. Atherosclerotic calcifications of the abdominal aorta. RAD/Chest PA and Lateral IMPRESSION: 1. No acute cardiopulmonary disease. 2. Chronic/ancillary findings as above. Electronically Signed: Moshe Lomax MD at 3:37 EST ,
[2022-04-12 17:35] LABS: Absolute Lymphocyte Count 1.55 X10^3/uL (0.83-4.51); Absolute Neutrophil Count 6.7 X10^3/uL (2.0-7.7); Basophil# 0.08 X10^3/uL; Basophil% 0.8 % (0-1); Eosinophil# 0.04 X10^3/uL; Eosinophils% 0.4 % (0-5); Hematocrit 43.2 % (37-47); Hemoglobin 14.5 g/dL (12.0-15.0); Lymphocyte # 1.55 X10^3/ul (0.83-4.51); Lymphocyte % 16.4 % (19-41); Mean Corp Hgb Conc 33.6 g/dL (32-36); Mean Corpuscular Hgb 32.7 pg (27.0-32.0); Mean Corpuscular Volume 97.5 fL (81-99); Mean Platelet Vol. 8.9 fl (6.2-12.0); Monocyte# 0.98 X10^3/uL; Monocyte% 10.4 % (0-10); NRBC Flagged by Analyzer 0 % (0-5); Neutrophil # 6.71 X10^3/uL (2.7-7.7); Platelet Count 340 K/mm3 (150-450); RBC Distribution Width CV 15.7 % (11.6-14.6); RBC Distribution Width SD 56.2 fl (35.1-43.9); Red Blood Count 4.43 M/mm3 (4.2-5.4); White Blood Count 9.5 K/mm3 (4.4-11.0)
[2022-04-12 18:11] LABS: ALB/GLOB Ratio 0.8 RATIO (0.9-2.4); AST(SGOT) 15 U/L (15-37); Alanine Aminotransfer ALT/SGPT 30 U/L (13-56); Albumin, Serum 3.7 g/dL (3.2-5.0); Alkaline Phosphatase 77 U/L (45-117); Anion Gap 7 (5-15); BUN 22 mg/dL (7-18); BUN/Creat Ratio 28.4 RATIO (10-20); Calcium,Total 9.7 mg/dL (8.5-10.1); Chloride 107 mmol/L (98-107); Creatinine, Serum 0.77 mg/dL (0.55-1.02); EST Glomerular Filtration Rate 75 mL/min (>60); Est Glom Filt Rate - Afr Amer 91 mL/min (>60); Globulin 4.8 g/dL (2.2-4.2); Glucose 103 mg/dL (74-106); Potassium 3.9 mmol/L (3.5-5.1); Protein, Total 8.5 g/dL (6.4-8.2); Sodium Level 136 mmol/L (136-145)
[2022-04-12 19:19] LABS: Hepatitis C Antibody Non-Reactive (Nonreactive); Vitamin D,25 Hydroxy 51.2 ng/mL
== END | disposition home or self-care (01) ==
PROVIDERS: PCP Family Medicine; Referring Provider Family Medicine Geriatric Medicine; Visit Provider Family Medicine Geriatric Medicine
DX: R53.81 Other malaise (principal); R06.02 Shortness of breath; E03.9 Hypothyroidism, unspecified; E55.9 Vitamin D deficiency, unspecified; Z13.89 Encounter for screening for other disorder
CPT/HCPCS: 36415; 71046; 80053; 82306; 84443; 85025; 86803

== ENCOUNTER → 2022-05-02 | Outpatient (CLI) | payer MEDICARE, SELFPAY ==
--- NOTE | 2022-05-02 10:33 | PFTCOMP ---
COMPLETE PULMONARY FUNCTION TEST INTERPRETATION Brief HPI: Patient is an 86-year-old female, currently under the care of Dr. Babb, who presents to [facility] for complete pulmonary function tests secondary to diagnosis of dyspnea. Respiratory therapist reports good effort and reproducible results. Interpretation: Forced expiration spirometry shows no large airways obstructive ventilatory defect with an FEV1 of 120% predicted. There is no significant bronchodilator response tested. Spirograms are of good quality and plateau normally. The respiratory flow volume loop shows a normal pattern. Lung volumes by body plethysmography show a normal total lung capacity at 4.42 L, 114% predicted. All other lung volumes are within normal limits. Diffusion capacity by carbon monoxide is normal at 75% predicted. The airway resistance is normal. No previous pulmonary function tests were available for review. Impression: Normal complete pulmonary function test
== END | disposition home or self-care (01) ==
LOC: CVS 09:06
PROVIDERS: PCP Family Medicine; Visit Provider Family Medicine Geriatric Medicine
DX: R06.02 Shortness of breath (principal)
CPT/HCPCS: 93306; 94010; 94726; 94729

== ENCOUNTER → 2022-05-17 | Outpatient (CLI) | payer MEDICARE, SELFPAY ==
[2022-05-17 08:16] VITALS: BP 140/74; PULSE 68; RESP 16; TEMP 36.2; O2SAT 97
[2022-05-17] MEDS: 0.9% NaCl Peripheral Flush Adult/Peds IV (08:21)
[2022-05-17] MEDS: Immune Globulin 20 gm Premixed Solution 45.5 BAG IV (08:29)
[2022-05-17] MEDS: Immune Globulin 20 gm Premixed Solution 180 BAG IV (10:25)
== END | disposition home or self-care (01) ==
LOC: MEDOUTP 08:06
PROVIDERS: PCP Family Medicine; Referring Provider Internal Medicine Rheumatology; Visit Provider Internal Medicine Rheumatology
DX: M33.92 Dermatopolymyositis, unspecified with myopathy (principal)
CPT/HCPCS: 96365; 96366; A4216; J1568

== ENCOUNTER → 2022-05-18 | Outpatient (CLI) | payer MEDICARE, SELFPAY ==
[2022-05-18] MEDS: 0.9% NaCl Peripheral Flush Adult/Peds IV (08:19)
[2022-05-18] MEDS: Immune Globulin 20 gm Premixed Solution 45.5 BAG IV (08:22)
[2022-05-18 08:24] VITALS: BP 147/73; PULSE 68; RESP 16; TEMP 36.2; O2SAT 95; BMI 26.5
[2022-05-18] MEDS: Immune Globulin 20 gm Premixed Solution 180 BAG IV (10:14)
== END | disposition home or self-care (01) ==
LOC: MEDOUTP 08:08
PROVIDERS: PCP Family Medicine; Referring Provider Internal Medicine Rheumatology; Visit Provider Internal Medicine Rheumatology
DX: M33.92 Dermatopolymyositis, unspecified with myopathy (principal)
CPT/HCPCS: 96365; 96366; A4216; J1568

== ENCOUNTER → 2022-05-29 | Outpatient (CLI) | payer MEDICARE, SELFPAY ==
[2022-05-29 13:31] LABS: T4 Free Direct 1.33 ng/dL (0.76-1.46)
== END | disposition home or self-care (01) ==
LOC: POLAB3 11:21
PROVIDERS: Internal Medicine Endocrinology, Diabetes & Metabolism; PCP Family Medicine; Visit Provider Family Medicine Geriatric Medicine
DX: E03.9 Hypothyroidism, unspecified (principal)
CPT/HCPCS: 36415; 84439; 84443

== ENCOUNTER 2022-07-12 07:53 | Outpatient (CLI) | payer MEDICARE, SELFPAY ==
[2022-07-12 08:05] VITALS: BP 144/74; PULSE 69; RESP 18; TEMP 36.4; O2SAT 96; BMI 26.5
[2022-07-12] MEDS: Immune Globulin 20 gm Premixed Solution 45.5 BAG IV (08:26)
[2022-07-12] MEDS: Immune Globulin 20 gm Premixed Solution 180 BAG IV (10:28)
[2022-07-12] MEDS: 0.9% NaCl Peripheral Flush Adult/Peds IV (11:45)
== END 2022-07-12 07:54 | disposition home or self-care (01) ==
PROVIDERS: PCP Family Medicine; Referring Provider Internal Medicine Rheumatology; Visit Provider Internal Medicine Rheumatology
DX: M33.92 Dermatopolymyositis, unspecified with myopathy (principal)
CPT/HCPCS: 96365; 96366; A4216; J1568

== ENCOUNTER 2022-07-13 07:45 | Outpatient (CLI) | payer MEDICARE, SELFPAY ==
[2022-07-13] MEDS: Immune Globulin 20 gm Premixed Solution 45.5 BAG IV (08:12)
[2022-07-13] MEDS: 0.9% NaCl Peripheral Flush Adult/Peds IV (08:13)
[2022-07-13 08:14] VITALS: BP 152/69; PULSE 72; RESP 18; TEMP 36.3; O2SAT 97; BMI 26.5
[2022-07-13] MEDS: Immune Globulin 20 gm Premixed Solution 180 BAG IV (10:05)
== END 2022-07-13 07:46 | disposition home or self-care (01) ==
LOC: MEDOUTP 07:46
PROVIDERS: PCP Family Medicine; Referring Provider Internal Medicine Rheumatology; Visit Provider Internal Medicine Rheumatology
DX: M33.92 Dermatopolymyositis, unspecified with myopathy (principal)
CPT/HCPCS: 96365; 96366; A4216; J1568

== ENCOUNTER → 2022-08-14 | Outpatient (CLI) | payer MEDICARE, SELFPAY ==
[2022-08-14 18:05] LABS: Absolute Lymphocyte Count 2.21 X10^3/uL (0.83-4.51); Absolute Neutrophil Count 5.7 X10^3/uL (2.0-7.7); Basophil# 0.08 X10^3/uL; Basophil% 0.9 % (0-1); Eosinophil# 0.07 X10^3/uL; Eosinophils% 0.8 % (0-5); Hematocrit 43.3 % (37-47); Hemoglobin 14.7 g/dL (12.0-15.0); Lymphocyte # 2.21 X10^3/ul (0.83-4.51); Lymphocyte % 24.5 % (19-41); Mean Corp Hgb Conc 33.9 g/dL (32-36); Mean Corpuscular Hgb 32.2 pg (27.0-32.0); Mean Platelet Vol. 9.1 fl (6.2-12.0); Monocyte# 0.88 X10^3/uL; Monocyte% 9.8 % (0-10); NRBC Flagged by Analyzer 0 % (0-5); Neutrophil # 5.72 X10^3/uL (2.7-7.7); Neutrophil % 63.4 % (47-70); Platelet Count 324 K/mm3 (150-450); RBC Distribution Width CV 13.6 % (11.6-14.6); RBC Distribution Width SD 46.9 fl (35.1-43.9); Red Blood Count 4.56 M/mm3 (4.2-5.4)
[2022-08-14 18:37] LABS: ALB/GLOB Ratio 0.8 RATIO (0.9-2.4); AST(SGOT) 21 U/L (15-37); Alanine Aminotransfer ALT/SGPT 35 U/L (13-56); Albumin, Serum 3.7 g/dL (3.2-5.0); Alkaline Phosphatase 93 U/L (45-117); Anion Gap 6 (5-15); BUN 11 mg/dL (7-18); BUN/Creat Ratio 14.2 RATIO (10-20); CPK Total, Creatine Kinase 41 U/L (26-192); Chloride 105 mmol/L (98-107); Creatinine, Serum 0.78 mg/dL (0.55-1.02); EST Glomerular Filtration Rate 75 mL/min (>60); Est Glom Filt Rate - Afr Amer 91 mL/min (>60); Globulin 4.7 g/dL (2.2-4.2); Glucose 101 mg/dL (74-106); Potassium 4.1 mmol/L (3.5-5.1); Protein, Total 8.4 g/dL (6.4-8.2); Sodium Level 136 mmol/L (136-145)
[2022-08-16 13:08] LABS: Aldolase 5.1 U/L (3.3-10.3)
== END | disposition home or self-care (01) ==
LOC: MTLAB 14:09
PROVIDERS: PCP Family Medicine; Referring Provider Internal Medicine Rheumatology; Visit Provider Internal Medicine Rheumatology
DX: M33.92 Dermatopolymyositis, unspecified with myopathy (principal); M15.9 Polyosteoarthritis, unspecified; Z79.899 Other long term (current) drug therapy
CPT/HCPCS: 36415; 80053; 82085; 82550; 85025

== ENCOUNTER 2022-09-06 07:48 | Outpatient (CLI) | payer MEDICARE, SELFPAY ==
[2022-09-06 08:20] VITALS: BP 145/73; PULSE 65; RESP 18; TEMP 36.3; O2SAT 95; BMI 28.3
[2022-09-06] MEDS: Immune Globulin 20 gm Premixed Solution 45.5 BAG IV (08:25)
[2022-09-06] MEDS: 0.9% NaCl Peripheral Flush Adult/Peds IV (08:27)
[2022-09-06] MEDS: Immune Globulin 20 gm Premixed Solution 180 BAG IV (10:20)
[2022-09-06 11:42] VITALS: BP 151/78; PULSE 62; TEMP 36.1
== END 2022-09-06 07:49 | disposition home or self-care (01) ==
PROVIDERS: PCP Family Medicine; Referring Provider Internal Medicine Rheumatology; Visit Provider Internal Medicine Rheumatology
DX: M60.80 Other myositis, unspecified site (principal)
CPT/HCPCS: 96365; 96366; A4216; J1568

== ENCOUNTER 2022-09-07 07:53 | Outpatient (CLI) | payer MEDICARE, SELFPAY ==
[2022-09-07 08:02] VITALS: BP 168/84; PULSE 71; RESP 18; TEMP 36.2; O2SAT 96
[2022-09-07] MEDS: 0.9% NaCl Peripheral Flush Adult/Peds IV (08:04)
[2022-09-07] MEDS: Immune Globulin 20 gm Premixed Solution 45.5 BAG IV (08:06)
[2022-09-07] MEDS: Immune Globulin 20 gm Premixed Solution 180 BAG IV (10:08)
== END 2022-09-07 07:54 | disposition home or self-care (01) ==
LOC: MEDOUTP 07:53
PROVIDERS: PCP Family Medicine; Referring Provider Internal Medicine Rheumatology; Visit Provider Internal Medicine Rheumatology
DX: M60.80 Other myositis, unspecified site (principal)
CPT/HCPCS: 96365; 96366; A4216; J1568

== ENCOUNTER 2022-09-22 13:11 | Outpatient (CLI) | payer MEDICARE, SELFPAY ==
[2022-09-22 13:28] VITALS: BP 151/78; PULSE 72; RESP 16; TEMP 36.3; O2SAT 96
[2022-09-22] MEDS: DENOSUMAB 60 MG/ML SC (13:33)
== END 2022-09-22 13:12 | disposition home or self-care (01) ==
LOC: MEDOUTP 13:11
PROVIDERS: PCP Family Medicine; Referring Provider Internal Medicine Endocrinology, Diabetes & Metabolism; Visit Provider Internal Medicine Endocrinology, Diabetes & Metabolism
DX: E03.9 Hypothyroidism, unspecified (principal); M81.0 Age-related osteoporosis without current pathological fracture
CPT/HCPCS: 96372; J0897

== ENCOUNTER 2022-11-08 08:04 | Outpatient (CLI) | payer MEDICARE, SELFPAY ==
[2022-11-08] MEDS: 0.9% NaCl Peripheral Flush Adult/Peds IV (08:14)
[2022-11-08] MEDS: Immune Globulin 20 gm Premixed Solution 45.5 BAG IV (08:14)
[2022-11-08 08:23] VITALS: BMI 27.3
[2022-11-08] MEDS: Immune Globulin 20 gm Premixed Solution 180 BAG IV (10:04)
== END 2022-11-08 08:05 | disposition home or self-care (01) ==
LOC: MEDOUTP 08:05
PROVIDERS: PCP Family Medicine; Referring Provider Internal Medicine Rheumatology; Visit Provider Internal Medicine Rheumatology
DX: M33.92 Dermatopolymyositis, unspecified with myopathy (principal)
CPT/HCPCS: 96365; 96366; A4216; J1568

== ENCOUNTER 2022-11-09 08:04 | Outpatient (CLI) | payer MEDICARE, SELFPAY ==
[2022-11-09] MEDS: 0.9% NaCl Peripheral Flush Adult/Peds IV (08:18)
[2022-11-09] MEDS: Immune Globulin 20 gm Premixed Solution 45.5 BAG IV (08:21)
[2022-11-09 08:24] VITALS: BP 141/80; PULSE 75; RESP 16; TEMP 36.5
[2022-11-09] MEDS: Immune Globulin 20 gm Premixed Solution 180 BAG IV (10:13)
== END 2022-11-09 08:05 | disposition home or self-care (01) ==
LOC: MEDOUTP 08:05
PROVIDERS: PCP Family Medicine; Referring Provider Internal Medicine Rheumatology; Visit Provider Internal Medicine Rheumatology
DX: M33.92 Dermatopolymyositis, unspecified with myopathy (principal)
CPT/HCPCS: 96365; 96366; A4216; J1568

== ENCOUNTER → 2022-11-24 | Outpatient (CLI) | payer MEDICARE, SELFPAY ==
[2022-11-24 17:36] LABS: Absolute Lymphocyte Count 1.73 X10^3/uL (0.83-4.51); Absolute Neutrophil Count 3.4 X10^3/uL (2.0-7.7); Basophil# 0.08 X10^3/uL; Basophil% 1.3 % (0-1); Eosinophil# 0.06 X10^3/uL; Hematocrit 44.2 % (37-47); Hemoglobin 14.4 g/dL (12.0-15.0); Lymphocyte # 1.73 X10^3/ul (0.83-4.51); Lymphocyte % 28.1 % (19-41); Mean Corp Hgb Conc 32.6 g/dL (32-36); Mean Corpuscular Hgb 31.5 pg (27.0-32.0); Mean Corpuscular Volume 96.7 fL (81-99); Mean Platelet Vol. 9.8 fl (6.2-12.0); Monocyte# 0.88 X10^3/uL; Monocyte% 14.3 % (0-10); NRBC Flagged by Analyzer 0 % (0-5); Neutrophil # 3.38 X10^3/uL (2.7-7.7); Platelet Count 314 K/mm3 (150-450); RBC Distribution Width CV 13.9 % (11.6-14.6); RBC Distribution Width SD 49.5 fl (35.1-43.9); Red Blood Count 4.57 M/mm3 (4.2-5.4); White Blood Count 6.2 K/mm3 (4.4-11.0)
[2022-11-24 18:11] LABS: ALB/GLOB Ratio 0.7 RATIO (0.9-2.4); AST(SGOT) 19 U/L (15-37); Alanine Aminotransfer ALT/SGPT 30 U/L (13-56); Albumin, Serum 3.6 g/dL (3.2-5.0); Alkaline Phosphatase 79 U/L (45-117); Anion Gap 8 (5-15); BUN 14 mg/dL (7-18); BUN/Creat Ratio 18.4 RATIO (10-20); CPK Total, Creatine Kinase 51 U/L (26-192); Calcium,Total 9.5 mg/dL (8.5-10.1); Chloride 107 mmol/L (98-107); Creatinine, Serum 0.76 mg/dL (0.55-1.02); EST Glomerular Filtration Rate 77 mL/min (>60); Est Glom Filt Rate - Afr Amer 93 mL/min (>60); Glucose 135 mg/dL (74-106); Potassium 3.8 mmol/L (3.5-5.1); Protein, Total 8.6 g/dL (6.4-8.2); Sodium Level 138 mmol/L (136-145)
[2022-11-27 14:08] LABS: Aldolase 3.2 U/L (3.3-10.3)
== END | disposition home or self-care (01) ==
LOC: MTLAB 14:51
PROVIDERS: PCP Family Medicine; Referring Provider Internal Medicine Rheumatology; Visit Provider Internal Medicine Rheumatology
DX: M33.92 Dermatopolymyositis, unspecified with myopathy (principal); M15.9 Polyosteoarthritis, unspecified; Z79.899 Other long term (current) drug therapy
CPT/HCPCS: 36415; 80053; 82085; 82550; 85025

== ENCOUNTER 2023-01-11 08:08 | Outpatient (CLI) | payer MEDICARE, SELFPAY ==
[2023-01-11] MEDS: 0.9% NaCl Peripheral Flush Adult/Peds IV ×2 (08:15→08:59)
[2023-01-11 08:27] VITALS: BP 154/71; PULSE 68; RESP 16; TEMP 35.8; O2SAT 95
--- OUTSIDE RECORDS SUMMARY | 2023-01-11 08:28 | XMS RPT_ITS | CCD ---
Author Name Unknown Address [address] [place] [address] Organization [facility] Care Team Providers Care Induction Machine Operator Name Role Phone Dilma Loo Unavailable Unavailable Chepe IQBAL, Blake Tom Unavailable [phone] KIMMIE Kaiser RN, Bel Jones Unavailable Unavailabl e Medications Completed/Discontinued Medications Medication Drug Class(es) Dates Sig (Normalized) Sig (Original) HYDROCODONE-ACETAM INOPHEN (6 sources) Opioid Agonist Start: 06-01-2014 take 1 tablet by mouth at bedtime as needed for pain NORCO 5-325 MG TABS One tablet by mouth before bedtime as needed for pain HYDROCODONE-ACETAMI NOPHEN [id number] Catia Christian, DO Problems Active Problems Problem Classification Problem Date Documented Date Episodic/Chronic Disorders of lipid metabolism (3 sources) Hyperlipidemia; Translations: [Hyperlipidemia, unspecified] 01-07-2014 Chronic Essential hypertension (3 sources) Hypertensive disorder; Translations: [Essential (primary) hypertension] 01-07-2014 Chronic Osteoarthritis (3 sources) Osteoarthritis of knee; Translations: [Osteoarthritis of knee, unspecified] Onset: 01-12-2014 01-12-2014 Chronic Osteoporosis (3 sources) Osteoporosis; Translations: [Age-related osteoporosis without current pathological fracture] 01-07-2014 Chronic Systemic lupus erythematosus and connective tissue disorders (3 sources) Dermatomyositis; 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, unspecified, organ involvement unspecified] Onset: 01-12-2014 01-12-2014 Chronic Thyroid disorders (3 sources) Hypothyroidism; Translations: [Hypothyroidism, unspecified] 01-12-2014 Chronic Past or Other Problems Problem Classification Problem Date Documented Date Episodic/Chronic Crushing injury or internal injury (3 sources) Traumatic pneumothorax; Translations: [Traumatic pneumothorax] Onset: 5 06-15-2014 Episodic Deficiency and other anemia (3 sources) Anemia; Translations: [Anemia, unspecified] Onset: 5 06-15-2014 Episodic Medical examination/evaluati on (8 sources) Encounter for general adult medical examination without abnormal findings; Translations: [Encounter for general adult medical examination without abnormal findings] Onset: 5 Resolved: 7 08-03-2016 Episodic Nonmalignant breast conditions (2 sources) Mammographic microcalcification found on diagnostic imaging of breast; Translations: [Mammographic microcalcification found on diagnostic imaging of breast] Onset: 7 10-10-2016 Episodic Other aftercare (4 sources) Encounter for therapeutic drug level monitoring; Translations: [Encounter for therapeutic drug level monitoring] Onset: 5 Resolved: 7 05-04-2014 Episodic Other fractures (3 sources) Fracture of rib; Translations: [Fracture of one rib, unspecified side] Onset: 5 06-15-2014 Episodic Other non-traumatic joint disorders (3 sources) Hip pain; Translations: [Pain in right hip] Onset: 5 05-04-2014 Episodic Unclassified (4 sources) Screening for malignant neoplasm of breast ; Translations: [Other specified health status] Onset: 5 Resolved: 7 02-17-2014 Unclassified (4 sources) Screening for malignant neoplasm of cervix ; Translations: [Encounter for screening for malignant neoplasm of cervix] Onset: 5 Resolved: 7 08-03-2016 Unclassified (2 sources) Long-term drug therapy; Translations: [Encounter for therapeutic drug level monitoring] Onset: 5 Resolved: 7 08-03-2016 Unclassified (2 sources) Screening - health check; Translations: [Encounter for general adult medical examination without abnormal findings] Onset: 5 Resolved: 7 08-03-2016 Results Test Name Value Interpretation Reference Range Facil ity Vital Signs Date Time Vital Sign Value Performing Clinician Facility 10-10-2016 10:57-7030 BMI (Body Mass Index) 26.32 kg/m2 Dilma Loo [facility] Work Phone: 10-10-2016 10:57-0400 Body Temperature 98 [degF] [facility] Work Phone: 10-10-2016 10:57-0400 BP Diastolic 102 mm[Hg] [facility] Work Phone: 10-10-2016 10:57-0400 BP Systolic 178 mm[Hg] [facility] Work Phone: 10-10-2016 10:57-0400 Height 153.03 cm [facility] Work Phone: 10-10-2016 10:57-0400 Pulse (Heart Rate) 83 /min [facility] Work Phone: 10-10-2016 10:57-0400 Respiratory Rate 20 /min [facility] Work Phone: 10-10-2016 10:57-0400 Weight 61.64 kg [facility] Work Phone: 12-02-2014 08:33-0400 Body Temperature 97.6 [degF] Bel Kaiser RN RN [facility] Work Phone: 12-02-2014 08:33-0400 BP Diastolic 88 mm[Hg] Bel Kaiser RN RN [facility] Work Phone: 12-02-2014 08:33-0400 BP Systolic 138 mm[Hg] Bel Kaiser RN RN [facility] Work Phone: 12-02-2014 08:33-0400 Pulse (Heart Rate) 101 /min Bel Kaiser RN RN [facility] Work Phone: 12-02-2014 08:33-0400 Respiratory Rate 16 /min Bel Kaiser RN RN [facility] Work Phone: 12-02-2014 08:33-0400 Weight 68.49 kg Bel Kaiser RN RN [facility] Work Phone: 08-24-2014 10:57-0400 BMI (Body Mass Index) 28.47 kg/m2 [facility] Work Phone: 08-24-2014 10:57-0400 BSA (Body Surface Area) 1.64 m2 Bel Kaiser RN RN [facility] [employer] Work Phone: 06-01-2014 09:11-0400 Pulse Oximetry 96 % Bel Kaiser RN RN [facility] [employer] Work Phone: 01-12-2014 13:03-0500 Height 153.03 cm Bel Kaiser RN RN [facility] [employer] Work Phone: Encounters Encounter Date Encounter Type Care Provider Facility Start: 06-25-2014 End: 08-03-2016 Encounter for general adult medical examination without abnormal findings Bel Kaiser RN RN [facility] [employer] Work Phone: Procedures Date Procedure Procedure Detail Performing Clinician Start: 08-24-2014 End: 12-01-2014 Lipid panel [AGGREGATE] Catia Christian, DO Work Phone: Start: 05-04-2014 End: 07-14-2014 *CBC with Differential Catia Christian [employer] Work Phone: Start: 05-04-2014 End: 07-10-2014 *CMP Complete Metabolic Panel Catia Christian [employer] Work Phone: Start: 05-04-2014 End: 07-14-2014 Follow Up Appt 3 months Catia Christian [employer] Work Phone: Start: 03-05-2014 End: 04-02-2014 *PAPIG6 Cytopath, Cerv/Vag, Fluid Auto Redo Catia Christian [employer] Work Phone: Start: 03-05-2014 End: 08-03-2016 Screening for malignant neoplasm of cervix Screening, cervical cancer Bel Kaiser RN RN Start: 02-17-2014 End: 07-14-2014 Mammogram, Screening, both breasts Catia Christian [employer] Work Phone: Start: 02-17-2014 End: 08-03-2016 Screening for malignant neoplasm of breast Screening for breast cancer Bel Kaiser RN RN Start: 01-12-2014 End: 01-15-2014 Lipid panel [AGGREGATE] Catia Christian, DO Work Phone: Plan of Treatment Date Care Activity Detail Author Start: 10-18-2016 End: 10-18-2016 Appointment Appointment [facility] [place] Work Phone: Start: 10-10-2016 End: 10-17-2016 [facility] localization guidance for breast biopsy [facility] [place] Work Phone: Start: 10-10-2016 End: 10-10-2016 Mammogram, one breast Mammogram, Diagnositic Unilateral [facility] [place] Work Phone: Start: 10-10-2016 End: 10-10-2016 Us exam, breast(s) US Breast(s) [facility] [place] Work Phone: Start: 08-22-2016 End: 08-22-2016 Appointment Appointment [facility] [place] Work Phone: Start: 04-14-2015 End: 04-14-2015 Mammogram, screening Mammogram, Screening, both breasts [facility] [place] Work Phone: Start: 08-24-2014 End: 12-01-2014 Lipid panel [AGGREGATE] *Lipid Profile [facility] [place] Work Phone: Start: 05-04-2014 End: 07-14-2014 *CBC with Differential *CBC with Differential [facility] [place] Work Phone: Start: 05-04-2014 End: 07-10-2014 *CMP Complete Metabolic Panel *CMP Complete Metabolic Panel [facility] [place] Work Phone: Start: 05-04-2014 End: 07-14-2014 Follow Up Appt 3 months Follow Up Appt 3 months [facility] [place] Work Phone: Start: 03-05-2014 End: 04-02-2014 *PAPIG6 Cytopath, Cerv/Vag, Fluid Auto Redo *PAPIG6 Cytopath, Cerv/Vag, Fluid Auto Redo [facility] [employer] Work Phone: Start: 02-17-2014 End: 07-14-2014 Mammogram, Screening, both breasts Mammogram, Screening, both breasts [facility] [employer] Work Phone: Start: 01-12-2014 End: 01-15-2014 Lipid panel [AGGREGATE] *Lipid Profile [facility] [employer] Work Phone: Summary Purpose Family History No Family History Records Found Advance Directives No Advanced Directives Records Found Additional Source Comments INFORMATION SOURCE (unrecogn ized section and content) FOR RECORDS PERTAINING TO PATIENTS WHO ARE OR HAVE BEEN ENROLLED IN A CHEMICAL DEPENDENCY/SUBSTANCEABUSE PROGRAM, SOME INFORMATION MAY BE OMITTED. This clinical summary was aggregated from multiple sources. Caution should be exercised in using it in the provision of clinical care. This summary normalizes information from multiple sources, and as a consequence, information in this document may materially change the coding, format and clinical context of patient data. In addition, data may be omitted in some cases. CLINICAL DECISIONS SHOULD BE BASED ON THE PRIMARY CLINICAL RECORDS. [facility] [employer] [facility]. provides no warranty or guarantee of the accuracy or completeness of information in this document.
[2023-01-11] MEDS: Immune Globulin 20 gm Premixed Solution 45.5 BAG IV (08:57)
[2023-01-11] MEDS: Immune Globulin 20 gm Premixed Solution 180 BAG IV (10:47)
== END 2023-01-11 08:09 | disposition home or self-care (01) ==
PROVIDERS: PCP Family Medicine; Referring Provider Internal Medicine Rheumatology; Visit Provider Internal Medicine Rheumatology
DX: M33.92 Dermatopolymyositis, unspecified with myopathy (principal)
CPT/HCPCS: 96365; 96366; A4216; J1568

== ENCOUNTER 2023-01-15 08:34 | Outpatient (CLI) | payer MEDICARE, SELFPAY ==
[2023-01-15 08:50] VITALS: BP 142/79; PULSE 89; RESP 18; TEMP 36.3; BMI 29.2
[2023-01-15] MEDS: 0.9% NaCl Peripheral Flush Adult/Peds IV (08:53)
[2023-01-15] MEDS: Immune Globulin 20 gm Premixed Solution 45.5 BAG IV (09:00)
[2023-01-15] MEDS: Immune Globulin 20 gm Premixed Solution 180 BAG IV (10:48)
== END 2023-01-15 08:35 | disposition home or self-care (01) ==
PROVIDERS: PCP Family Medicine; Referring Provider Internal Medicine Rheumatology; Visit Provider Internal Medicine Rheumatology
DX: M33.92 Dermatopolymyositis, unspecified with myopathy (principal)
CPT/HCPCS: 96365; 96366; A4216; J1568

== ENCOUNTER 2023-01-17 12:30 | Outpatient (RCR) | payer MEDICARE, SELFPAY ==
--- NOTE | 2022-08-30 17:15 | HP.PTEVAL_ITS ---
Patient's Visit Information Visit Information Visit Information: DARIAN DOUGLAS is a 86 year old F referred to Physical Therapy by Dr. Catia Christian DO with a diagnosis of CEREBRAL INFARCTION. 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 Patient had CVA Dec [address] [facility] CATSCAN/MRI showed medulla oblongata CVA. Patient was stable 2 nd day went to [facility] ~ 1month for Rehab OT/PT/ speech with aphasia.. Then transferred to [facility] in [place] OT/PT/speech ~ 1 month . Patient went home on d/c May 28. Patient received [facility] PT for ~ [address] brenner PT. Patient lives with significant other at [facility] 1 floor no steps ,walk in shower , grab bars , elevated toilet seat. Patient has has [facility] aide 4 days week 4 hours. They assist with cooking ,cleaning assist with bathing ,patient able to dress. No falls. Patient prior level of function no device with gait. Denies pain. Patient has paresthesia/tingling in hand and leg. Patient goals to walk no device and get stronger. Patient conidtion affects QOL and function. Patient did have hip fx with ORIF . Also discussed with patient/family about getting order for OT SOCAIL: friend VOCATION: retired Objective Objective: POSTURE: mild forward posture hips/knees NEURO: reflexes Achilles /patella 1/3 ,c/o paresthesia/tingling in hand and foot, ataxia RLE PALAPTION: unremarkable GAIT: Ambulates with fww reciprocal pattern mild ataxia ,slow quang mild forward posture MMT: ( peak force) hip flexion 0 ,hip abduction 0 right ,hip flexion left 10.7 ,7.8 hip abduction ,quads/hams 4/5 ,ankle 4/5 BALANCE: fair with fww Balance/Special Test Scores CATSIB Score (Max score 120 seconds): 50 Lower Extremity Functional Score: 21 30 Second Chair Rise Test Seconds: 6 Goals Goal 1:: I with HEP for strengthening Goal Time Frame: 4-6 Weeks Goal 2:: Patient to improve peak force of hips by 10# strength to improve gait and function Goal Time Frame: 4-6 Weeks Goal 3:: Patient to improve CATSIB by 10 points to improve balance to decrease of falss Goal Time Frame: 4-6 Weeks Goal 4:: Patient to improve 30 sec sit-stand by 3-5 reps to improve function Goal Time Frame: 4-6 Weeks Goal 5:: Patient ambulate with least restrictive device with improved gait pattern in home and community distances Goal Time Frame: 4-6 Weeks Goal 6:: Patient to improve LFES score by 5-10 points to improve balance and gait Goal Time Frame: 4-6 Weeks Rehabilitation Potential Physical Therapy Diagnosis: This had CVA affecting right side with weakness and balance with decrease gait ,balance ,weakness impairs ADLS and function thus benefit from skilled PT Rehabilitation Potential: Good Anticipated Interventions Patient/Client Instruction: Educate patient on: Condition and Plan of Care For the Purpose of:: To increase ROM, To improve muscle performance and motor function, To increase tolerance to activity/condition/position, To improve ability of physical actions for home/community/work/leisure, To improve health of tissue, To decrease soft tissue restriction, To increase flexibility/ROM, To improve endurance, To improve balance, To improve safety with gait, To assume or resume ADL's and To improve tolerance to ADL's Therapeutic Exercise to Include: Strength training, Endurance training, Balance training, Coordination, Gait and locomotor training and Active ROM Comment: BLE QUADS/HAMS/HIP (RLE) For the Purpose of:: To increase ROM, To improve muscle performance and motor function, To improve ability to perform ADL's, To increase tolerance to activity/condition/position, To improve ability of physical actions for home/community/work/leisure, To improve gait and locomotor functions, To improve health of tissue, To decrease soft tissue restriction, To increase f lexibility/ROM, To improve endurance, To improve balance, To improve safety with gait and To improve tolerance to ADL's Text: Thank you for the opportunity to evaluate your patient. For Medicare and Medicare HMO plans, please review the plan of care and approve it. It will need to be FAXED BACK to us at [phone] for Medicare purposes. For Medicare only, by signing this I certify the plan of care. Please let me know if there are questions or concerns regarding this plan of care. Physician Signature: Date:
--- NOTE | 2022-09-22 09:46 | HP.OTEVAL ---
Patient's Visit Information Visit Information Visit Information: DARIAN DOUGLAS is a 87 year old F, referred to Occupational Therapy by Dr. Catia Christian DO, with a diagnosis of CVA with right arm affected. Date of Evaluation: 09/20/22 Occupational Therapist: FUENTES Isabel/Yecenia, CHT Subjective Subjective: This 86 y/o female presents to physical therapy with CVA ride side hemiplegia, daughter with patient during OT eval. Patient had CVA Dec 31 2021 went to [facility] CATSCAN/MRI showed medulla oblongata CVA. Patient was stable 2 nd day went to [facility] ~ 1month for Rehab OT/PT/ speech with aphasia.. Then transferred to [facility] in [place] OT/PT/speech ~ 1 month . Patient went home on d/c May 28. Patient received [facility] PT for ~ [address] brenner PT. Patient lives with significant other at [facility] 1 floor no steps ,walk in shower , grab bars , elevated toilet seat. Patient has has [facility] aide 4 days week 4 hours. They assist with cooking ,cleaning assist with bathing ,patient able to dress. No falls. Patient prior level of function no device with gait. Denies pain. Patient has paresthesia/tingling in hand and leg. Pt states tylenol helps a little with pain, reports hands feel dry. Pt reports it is hard to hold on to items at times/drops things a lot. Pt reports needing external support while standing and has decreased endurance. Pt reports fracuturing her right shoulder due to a fall ~4-5 years ago. 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 Pt is left hand dominant. Patient condition affects QOL and function. ADLs Kitchen: Chop with knife, Open jars, Open bottle caps and Take dish out of oven Household: Sweep/mop, Dust and Wash windows Comments: Pt reports difficulty participating in leisure tasks of playing on IPAD and crocheting. Pt is using cans to do some HEP from therapy- has 3# free weight at home Strength Shoulder: Fet # per pressure left ext 17.9/ flex 10.1; right ext 24.3/flex 15.3 Elbow: Fet # per pressure left ext 16.2/flex 11.8; right ext 15.7/flex 15.6 Dryerman/Woman: R 26# L 35# Lateral Pinch: R 7# L 8# Tripod Pinch: R 4# L 6# Sensation Thumb: R 3.22 slight diminished light touch L 2.83 normal Index: R & L 2.83 normal Middle: R 3.61 slight diminished light touch Ring: R & L 2.83 normal Little: R & L 2.83 normal Stereognosis: Abnormal - Right and Normal - Left Sensation Comments: hard to turn light switch on/off pt reports different sensation on forearm and hand when touching with light touch Nine Hole Peg Right: 37 sec Left: 143 secs In-Hand Manipulation Finger to Palm Translation: Severe - Right and Normal - Left Quick DASH-Disab of Arm,Shoulder& Hand Quick DASH Score: 52.2725 Goals Goal:: Pt to demo improved R shift supervisor melting strength by 5# to improve ability to grasp items for ADL and IADL tasks. Pt will demonstrate increased R shoulder strength 5# peak force on fit2 or equal to L shoulder by discharge. Goal:: Pt to demo improved FMC by decreased 9HPT time by 90 seconds in order to improve manipulation of small objects. Goal:: Pt will be able to ID 5/5 items placed in hand with vision occluded by discharge. Pt will be IND with HEP for sensory re-education by week 3. Goal:: Pt to demo overall increased indep in ADL/IADL tasks by decreased total DASH score by 15 points by discharge. Rehabilitation General Assessment: Pt seen for OT eval for concerns with paresthesia and decreased strength in RUE. Pt demonstrates decreased strength, sensation in palm, and dexterity in her right hand. These areas affect her ability to perform ADL and IADL tasks. Pt will benefit from skilled OT 1-2x a week for 6 weeks to improve ability to grasp items, increase strength, stereognosis, and decrease some of the numbness/tingling with sensory re-education. Pt educated in OT POC and stereognosis treatment at home to initiate sensory re-education. Pt verbalizes understanding and agreeable to OT POC. Therapy session was directly supervised and doc. approved by Vee DILL/Yecenia,CHT. Rehabilitation Potential: Good Anticipated Interventions Anticipated Interventions: A/AAROM/PROM, Strengthening, Triggerpoint Release, Sensory Retraining, Modalities, Joint Protection/Energy Conservation, Ergonomic Education, Fine Motor Coord/Nacho, Neuro Reeducation, Sensory Stimulation, ADL Training, Education re assistive Equipment, Education re Diagnosis, Caregiver Training and Home Program Visit Plan Frequency: 1-2x /Week Duration: 4-6 Weeks General Plan: Pt to be seen 1-2x a week for 4-6 weeks Focusing on RUE strengthening, sensory reeducation/stereognosis TEXT: Thank you for the opportunity to evaluate your patient. For Medicare and Medicare HMO plans, please review the plan of care and approve it. It will need to be FAXED BACK to us at [phone] for Medicare purposes. Please let me know if there are questions or concerns regarding this plan of care. Physician Signature: Date:
--- NOTE | 2022-10-19 12:57 | HP.PTREVAL ---
Re-Evaluation Intro: Dr. Catia Christian, DO, It has been my pleasure to treat DARIAN DOUGLAS over the last 9 visits for CEREBRAL INFARCTION. Please see the progress note below for an update on the physical therapy plan of care! Subjective Subjective: Doing okay , feels stronger Goal to get rid walker Objective Objective/Function: Objective: POSTURE: mild forward posture hips/knees NEURO: reflexes Achilles /patella 1/3 ,c/o paresthesia/tingling in hand and foot, ataxia RLE PALAPTION: unremarkable GAIT: Ambulates with fww reciprocal pattern mild ataxia ,slow quang mild forward posture MMT: ( peak force) hip flexion 19.7 ,hip abduction 0 right ,hip flexion left 35.7 ,7.8 hip abduction ,quads/hams 4/5 ,ankle 4/5 BALANCE: fair with fww Plan Plan Plan: CONT WITH POC PT INTEREVTIONS PROGRESSIVE GAIT TRAINING ,BALANCE TRAINING ,BLE STRENGTHENING ( ESPECIALLY RLE) ,AND FUNCTIONAL STRENGTHENING Balance/Gait/Functional tests Balance/Special Test Scores CATSIB Score (Max score 120 seconds): 68 Lower Extremity Functional Score: 21 TUG Test Time Seconds: 25.41 Tug Test: 20-30sec.=variable mobility 30 Second Chair Rise Test Seconds: 12 Goals Goals Goal 1:: I with HEP for strengthening Goal Time Frame: 4-6 Weeks Goal Progress: Progressing Goal 2:: Patient to improve peak force of hips by 10# strength to improve gait and function new goals) Goal Time Frame: 4-6 Weeks Goal Progress: Goal Met Goal 3:: Patient to improve CATSIB by 10 points to improve balance to decrease of falss Goal Time Frame: 4-6 Weeks Goal Progress: Progressing Goal 4:: Patient to improve 30 sec sit-stand by 3-5 reps to improve function (new goal) Goal Time Frame: 4-6 Weeks Goal 5:: Patient ambulate with least restrictive device with improved gait pattern in home and community distances Goal Time Frame: 4-6 Weeks Goal Progress: Progressing Goal 6:: Patient to improve LFES score by 5-10 points to improve balance and gait Goal Time Frame: 4-6 Weeks Goal Progress: Progressing Anticipated Interventions Anticipated Interventions Patient/Client Instruction: Educate patient on: Condition and Plan of Care For the Purpose of:: To increase ROM, To improve muscle performance and motor function, To increase tolerance to activity/condition/position, To improve ability of physical actions for home/community/work/leisure, To improve health of tissue, To decrease soft tissue restriction, To increase flexibility/ROM, To improve endurance, To improve balance, To improve safety with gait, To assume or resume ADL's and To improve tolerance to ADL's Therapeutic Exercise to Include: Strength training, Endurance training, Balance training, Coordination, Gait and locomotor training and Active ROM Comment: BLE QUADS/HAMS/HIP (RLE) For the Purpose of:: To increase ROM, To improve muscle performance and motor function, To improve ability to perform ADL's, To increase tolerance to activity/condition/position, To improve ability of physical actions for home/community/work/leisure, To improve gait and locomotor functions, To improve health of tissue, To decrease soft tissue restriction, To increase flexibility/ROM, To improve endurance, To improve balance, To improve safety with gait and To improve tolerance to ADL's Re-Evaluation Ending Re-evaluation ending: Please do not hesitate to contact me at [phone] by phone or if you have questions or concerns regarding this new plan of care! Sincerely, Onesimo Boyd, PT, Cert MDT, OCS
--- NOTE | 2022-11-30 13:14 | HP.PTDCSUM_ITS ---
Discharge Summary D/C summary: It has been my pleasure to treat DARIAN DOUGLAS referred by Dr. Catia Christian DO, with the diagnosis of CEREBRAL INFARCTION for a total of 15 visit(s). Discharge Date: Please see the following information for a summary of their discharge status. Subjective Subjective: Doing better overall .. Walking and strength is what I need Overall Improvement % Improvement: 50 Objective Objective/Function: POSTURE: mild forward posture hips/knees NEURO: reflexes Achilles /patella 1/3 ,c/o paresthesia/tingling in hand and foot, ataxia RLE GAIT: Ambulates with fww reciprocal pattern mild ataxia ,slow quang mild forward posture MMT: ( peak force) hip flexion 23.7 ,hip abduction 5 right ,hip flexion left 35.7 ,7.8 hip abduction ,quads/hams 4/5 ,ankle 4/5 BALANCE: fair +with fww Goals Goal 1:: I with HEP for strengthening Goal Progress: Progressing Goal 2:: Patient to improve peak force of hips by 10# strength to improve gait and function new goals) Goal Progress: Goal Met Goal 3:: Patient to improve CATSIB by 10 points to improve balance to decrease of falls Goal Progress: Progressing Goal 4:: Patient to improve 30 sec sit-stand by 3-5 reps to improve function (new goal) Goal Progress: Progressing Goal 5:: Patient ambulate with least restrictive device with improved gait pa ttern in home and community distances Goal Progress: Progressing Goal 6:: Patient to improve LFES score by 5-10 points to improve balance and gait Goal Progress: Progressing Plan Plan: CONT WITH POC PT INTEREVTIONS PROGRESSIVE GAIT TRAINING ,BALANCE TRAINING ,BLE STRENGTHENING ( ESPECIALLY RLE) ,AND FUNCTIONAL STRENGTHENING D/C Information d/c sentence: If there are questions or concerns regarding this patient's physical therapy, please feel free to call me at [phone]. Thank you for the referral of this patient. Sincerely, Onesimo Boyd, PT, Cert MDT, OCS Balance/Gait/Functional tests Balance/Special Test Scores CATSIB Score (Max score 120 seconds): 70 Lower Extremity Functional Score: 21 TUG Test Time Seconds: 25.41 Tug Test: 20-30sec.=variable mobility 30 Second Chair Rise Test Seconds: 13 Improvement % Improvement: 50
--- NOTE | 2022-11-30 15:28 | HP.PTREVAL ---
Re-Evaluation Intro: Dr. 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 Please see the progress note below for an update on the physical therapy plan of care! Subjective Subjective: Doing better overall .. Walking and strength is what I need Objective Objective/Function: POSTURE: mild forward posture hips/knees NEURO: reflexes Achilles /patella 1/3 ,c/o paresthesia/tingling in hand and foot, ataxia RLE GAIT: Ambulates with fww reciprocal pattern mild ataxia ,slow quang mild forward posture MMT: ( peak force) hip flexion 23.7 ,hip abduction 5 right ,hip flexion left 35.7 ,7.8 hip abduction ,quads/hams 4/5 ,ankle 4/5 BALANCE: fair +with fww Plan Plan Plan: CONT WITH POC PT INTEREVTIONS PROGRESSIVE GAIT TRAINING ,BALANCE TRAINING ,BLE STRENGTHENING ( ESPECIALLY RLE) ,AND FUNCTIONAL STRENGTHENING Balance/Gait/Functional tests Balance/Special Test Scores CATSIB Score (Max score 120 seconds): 70 Lower Extremity Functional Score: 21 TUG Test Time Seconds: 25.41 Tug Test: 20-30sec.=variable mobility 30 Second Chair Rise Test Seconds: 13 Goals Goals Goal 1:: I with HEP for strengthening Goal Time Frame: 4-6 Weeks Goal Progress: Progressing Goal 2:: Patient to improve peak force of hips by 10# strength to improve gait and function new goals) Goal Time Frame: 4-6 Weeks Goal Progress: Goal Met Goal 3:: Patient to improve CATSIB by 10 points to improve balance to decrease of falls Goal Time Frame: 4-6 Weeks Goal Progress: Progressing Goal 4:: Patient to improve 30 sec sit-stand by 3-5 reps to improve function (new goal) Goal Time Frame: 4-6 Weeks Goal Progress: Progressing Goal 5:: Patient ambulate with least restrictive device with improved gait pattern in home and community distances Goal Time Frame: 4-6 Weeks Goal Progress: Progressing Goal 6:: Patient to improve LFES score by 5-10 points to improve balance and gait Goal Time Frame: 4-6 Weeks Goal Progress: Progressing Anticipated Interventions Anticipated Interventions Patient/Client Instruction: Educate patient on: Condition and Plan of Care For the Purpose of:: To increase ROM, To improve muscle performance and motor function, To increase tolerance to activity/condition/position, To improve ability of physical actions for home/community/work/leisure, To improve health of tissue, To decrease soft tissue restriction, To increase flexibility/ROM, To improve endurance, To improve balance, To improve safety with gait, To assume or resume ADL's and To improve tolerance to ADL's Therapeutic Exercise to Include: Strength training, Endurance training, Balance training, Coordination, Gait and locomotor training and Active ROM Comment: BLE QUADS/HAMS/HIP (RLE) For the Purpose of:: To increase ROM, To improve muscle performance and motor function, To improve ability to perform ADL's, To increase tolerance to activity/condition/position, To improve ability of physical actions for home/community/work/leisure, To improve gait and locomotor functions, To improve health of tissue, To decrease soft tissue restriction, To increase flexibility/ROM, To improve endurance, To improve balance, To improve safety with gait and To improve tolerance to ADL's Re-Evaluation Ending Re-evaluation ending: Please do not hesitate to contact me at [phone] by phone or if you have questions or concerns regarding this new plan of care! Sincerely, Onesimo Boyd, PT, Cert MDT, OCS
--- NOTE | 2023-01-04 12:47 | HP.PTREVAL ---
Re-Evaluation Intro: Dr. Catia Christian, DO, It has been my pleasure to treat DARIAN DOUGLAS over the last 21 visits for CEREBRAL INFARCTION. Please see the progress note below for an update on the physical therapy plan of care! Subjective Subjective: Patient progressing with function using QC in PT Did have 1 episode of falling Objective Objective/Function: POSTURE: mild forward posture hips/knees NEURO: reflexes Achilles /patella 1/3 ,c/o paresthesia/tingling in hand and foot, ataxia RLE GAIT: Ambulates with fww reciprocal pattern mild ataxia ,slow quang mild forward posture to PT dept progressed to QC with SBA/SCGA 150 ft in PT HIPOLITO MMT: ( peak force) hip flexion 25.3 ,hip abduction 8.2 right ,hip flexion left 35.8 ,9.8 hip abduction ,quads/hams 4/5 ,ankle 4/5 BALANCE: fair +with fww Plan Plan Plan: CONT WITH POC PT INTEREVTIONS PROGRESSIVE GAIT TRAINING ,BALANCE TRAINING ,BLE STRENGTHENING ( ESPECIALLY RLE) ,AND FUNCTIONAL STRENGTHENING Balance/Gait/Functional tests Balance/Special Test Scores CATSIB Score (Max score 120 seconds): 76 Lower Extremity Functional Score: 39 TUG Test Time Seconds: 25.41 Tug Test: 20-30sec.=variable mobility 30 Second Chair Rise Test Seconds: 5 Goals Goals Goal 1:: I with HEP for strengthening Goal Time Frame: 4-6 Weeks Goal Progress: Progressing Goal 2:: Patient to improve peak force of hips by 10# strength to improve gait and function new goals) Goal Time Frame: 4-6 Weeks Goal Progress: Goal Met Goal 3:: Patient to improve CATSIB by 10 points to improve balance to decrease of falls Goal Time Frame: 4-6 Weeks Goal Progress: Progressing Goal 4:: Patient to improve 30 sec sit-stand by 3-5 reps to improve function (new goal) Goal Time Frame: 4-6 Weeks Goal Progress: Progressing Goal 5:: Patient ambulate with least restrictive device with improved gait pattern in home and community distances Goal Time Frame: 4-6 Weeks Goal Progress: PROGRESSSING WITH QC Goal 6:: Patient to improve LFES score by 5-10 points to improve balance and gait Goal Time Frame: 4-6 Weeks Goal Progress: Progressing Anticipated Interventions Anticipated Interventions Patient/Client Instruction: Educate patient on: Condition and Plan of Care For the Purpose of:: To increase ROM, To improve muscle performance and motor function, To increase tolerance to activity/condition/position, To improve ability of physical actions for home/community/work/leisure, To improve health of tissue, To decrease soft tissue restriction, To increase flexibility/ROM, To improve endurance, To improve balance, To improve safety with gait, To assume or resume ADL's and To improve tolerance to ADL's Therapeutic Exercise to Include: Strength training, Endurance training, Balance training, Coordination, Gait and locomotor training and Active ROM Comment: BLE QUADS/HAMS/HIP (RLE) For the Purpose of:: To increase ROM, To improve muscle performance and motor function, To improve ability to perform ADL's, To increase tolerance to activity/condition/position, To improve ability of physical actions for home/community/work/leisure, To improve gait and locomotor functions, To improve health of tissue, To decrease soft tissue restriction, To increase flexibility/ROM, To improve endurance, To improve balance, To improve safety with gait and To improve tolerance to ADL's Re-Evaluation Ending Re-evaluation ending: Please do not hesitate to contact me at [phone] by phone or if you have questions or concerns regarding this new plan of care! Sincerely, Onesimo Boyd, PT, Cert MDT, OCS
--- NOTE | 2023-02-15 08:52 | HP.OT.NRP ---
Patient Information Patient Information: DARIAN DOUGLAS was seen in my office for initial evaluation on 09/20/22. The following Plan of Care was established for this patient: POC Established Initial Frequency: 1-2x /Week Initial Duration: 4-6 Weeks Plan: pt continues to make gains toward her OT goals. Pt still demo right UE weakness limiting her IND with ADLs and IADls. pt would benefit from further skilled OT services 1x week for 4 weeks. pt agrees with POC. Anticipated Interventions Anticipated Interventions: A/AAROM/PROM, Strengthening, Triggerpoint Release, Sensory Retraining, Modalities, Joint Protection/Energy Conservation, Ergonomic Education, Fine Motor Coord/Nacho, Neuro Reeducation, Sensory Stimulation, ADL Training, Education re assistive Equipment, Education re Diagnosis, Caregiver Training and Home Program Last Seen Last Seen: This patient was last seen in our office 01/17/23. Pertinent comments regarding their Occupational therapy will appear below: pt called this AM and states due to illness pt would like to be D/C from outpt services and will return in spring. pt d/c per her request. At this point I will be discontinuing this patient from occupational therapy. I would be happy to see this patient again in the future if found appropriate by the physician. Thank you! Vee Monroy, OTR/L, CHT
== END 2023-01-17 19:00 | disposition home or self-care (01) ==
LOC: PT 12:30
PROVIDERS: PCP Family Medicine; Referring Provider Family Medicine; Visit Provider Family Medicine
DX: I63.9 Cerebral infarction, unspecified (principal); M17.0 Bilateral primary osteoarthritis of knee
CPT/HCPCS: 97110; 97112; 97116; 97162; 97166; 97530

== ENCOUNTER 2023-03-08 08:07 | Outpatient (CLI) | payer MEDICARE, SELFPAY ==
[2023-03-08 08:21] VITALS: BP 146/74; PULSE 69; RESP 16; TEMP 36.2; O2SAT 94; BMI 29.2
[2023-03-08] MEDS: 0.9% NaCl Peripheral Flush Adult/Peds IV (08:23)
[2023-03-08] MEDS: Immune Globulin 20 gm Premixed Solution 45.5 BAG IV (08:34)
[2023-03-08] MEDS: Immune Globulin 20 gm Premixed Solution 180 BAG IV (10:25)
== END 2023-03-08 08:08 | disposition home or self-care (01) ==
PROVIDERS: PCP Family Medicine; Referring Provider Internal Medicine Rheumatology; Visit Provider Internal Medicine Rheumatology
DX: M33.92 Dermatopolymyositis, unspecified with myopathy (principal)
CPT/HCPCS: 96365; 96366; A4216; J1568

== ENCOUNTER 2023-03-09 08:08 | Outpatient (CLI) | payer MEDICARE, SELFPAY ==
[2023-03-09] MEDS: Immune Globulin 20 gm Premixed Solution 45.5 BAG IV (08:44)
[2023-03-09] MEDS: 0.9% NaCl Peripheral Flush Adult/Peds IV (08:45)
[2023-03-09 08:46] VITALS: BP 132/73; PULSE 64; RESP 16; TEMP 36.4
[2023-03-09] MEDS: Immune Globulin 20 gm Premixed Solution 180 BAG IV (10:40)
== END 2023-03-09 08:09 | disposition home or self-care (01) ==
PROVIDERS: PCP Family Medicine; Referring Provider Internal Medicine Rheumatology; Visit Provider Internal Medicine Rheumatology
DX: M33.92 Dermatopolymyositis, unspecified with myopathy (principal)
CPT/HCPCS: 96365; 96366; A4216; J1568

== ENCOUNTER 2023-03-23 12:43 | Outpatient (CLI) | payer MEDICARE, SELFPAY ==
[2023-03-23 12:56] VITALS: BP 161/83; PULSE 72; RESP 16; TEMP 36.3; O2SAT 95; BMI 29.2
--- OUTSIDE RECORDS SUMMARY | 2023-03-23 13:05 | XMS RPT_ITS | CCD ---
Author Name Unknown Address [address] [place] [address] Organization [facility] Care Team Providers Care Set Illustrator Name Role Phone Dilma Loo Unavailable Unavailable Chepe IQBLA, Blake Tom Unavailable [phone] KIMMIE Kaiser RN, Bel Jones Unavailable Unavailabl e Medications Completed/Discontinued Medications Medication Drug Class(es) Dates Sig (Normalized) Sig (Original) HYDROCODONE-ACETAM INOPHEN (6 sources) Opioid Agonist Start: 06-01-2014 take 1 tablet by mouth at bedtime as needed for pain NORCO 5-325 MG TABS One tablet by mouth before bedtime as needed for pain HYDROCODONE-ACETAMI NOPHEN [id number] Catia Christian, DO Problems Active Problems Problem [...] Vital Sign Value Performing Clinician Facility 10-10-2016 10:57-3793 BMI (Body Mass Index) 26.32 kg/m2 Dilma Loo [facility] Work Phone: 10-10-2016 10:57-0400 Body Temperature 98 [degF] [facility] Work Phone: 10-10-2016 10:57-0400 BP Diastolic 102 mm[Hg] [facility] Work Phone: 10-10-2016 10:57-0400 BP Systolic 178 mm[Hg] [facility] Work Phone: 10-10-2016 10:57-0400 Height 153.03 cm [facility] Work Phone: 10-10-2016 10:57-0400 Pulse (Heart Rate) 83 /min [facility] Work Phone: 10-10-2016 10:57-0400 Respiratory Rate 20 /min [facility] Work Phone: 10-10-2016 10:57-0400 Weight 61.64 kg [facility] Work Phone: 12-02-2014 08:33-0400 Body Temperature 97.6 [degF] Bel Kaiser RN RN [facility] Work Phone: 12-02-2014 08:33-0400 BP Diastolic 88 mm[Hg] Bel Kaiser RN RN [facility] Work Phone: 12-02-2014 08:33-0400 BP Systolic 138 mm[Hg] Bel Kaiser RN RN [facility] Work Phone: 12-02-2014 08:33-0400 Pulse (Heart Rate) 101 /min Bel Kaiser RN RN [facility] Work Phone: 12-02-2014 08:33-0400 Respiratory Rate 16 /min Bel Kaiser RN RN [facility] Work Phone: 12-02-2014 08:33-0400 Weight 68.49 kg Bel Kaiser RN RN [facility] Work Phone: 08-24-2014 10:57-0400 BMI (Body Mass Index) 28.47 kg/m2 Bel [email or web address] Work Phone: 08-24-2014 10:57-0400 BSA (Body Surface Area) 1.64 m2 Bel Kaiser RN RN [facility] Work Phone: 06-01-2014 09:11-0400 Pulse Oximetry 96 % Bel Kaiser RN RN [facility] Work Phone: 01-12-2014 13:03-0500 Height 153.03 cm Bel Kaiser RN RN [facility] Work Phone: Encounters Encounter Date Encounter Type Care Provider Facility Start: 06-25-2014 End: 08-03-2016 Encounter for general adult medical examination without abnormal findings Bel Kaiser RN RN [facility] Work Phone: Procedures Date Procedure Procedure Detail Performing Clinician Start: 08-24-2014 End: 12-01-2014 Lipid panel [AGGREGATE] Catia Christian, DO Work Phone: Start: 05-04-2014 End: 07-14-2014 *CBC with Differential Catia Christian [employer] Work Phone: Start: 05-04-2014 End: 07-10-2014 *CMP Complete Metabolic Panel Catia Christian [employer] Work Phone: Start: 05-04-2014 End: 07-14-2014 Follow Up Appt 3 months Catia Christian [employer] Work Phone: Start: 03-05-2014 End: 04-02-2014 *PAPIG6 Cytopath, Cerv/Vag, Fluid Auto Redo Catia Christian [employer] Work Phone: Start: 03-05-2014 End: 08-03-2016 Screening for malignant neoplasm of cervix Screening, cervical cancer Bel Kaiser RN RN Start: 02-17-2014 End: 07-14-2014 Mammogram, Screening, both breasts Catia Christian [employer] Work Phone: Start: 02-17-2014 End: 08-03-2016 Screening for malignant neoplasm of breast Screening for breast cancer Bel Kaiser RN RN Start: 01-12-2014 End: 01-15-2014 Lipid panel [AGGREGATE] Catia Christian, DO Work Phone: Plan of Treatment Date Care Activity Detail Author Start: 10-18-2016 End: 10-18-2016 Appointment Appointment [facility] [employer] Work Phone: Start: 10-10-2016 End: 10-17-2016 [facility] Stereotactic localization guidance for breast biopsy [facility] [employer] Work Phone: Start: 10-10-2016 End: 10-10-2016 Mammogram, one breast Mammogram, Diagnositic Unilateral [facility] [employer] Work Phone: Start: 10-10-2016 End: 10-10-2016 Us exam, breast(s) US Breast(s) [facility] [employer] Work Phone: Start: 08-22-2016 End: 08-22-2016 Appointment Appointment [facility] [employer] Work Phone: Start: 04-14-2015 End: 04-14-2015 Mammogram, screening Mammogram, Screening, both breasts [facility] [employer] Work Phone: Start: 08-24-2014 End: 12-01-2014 Lipid panel [AGGREGATE] *Lipid Profile [facility] [employer] Work Phone: Start: 05-04-2014 End: 07-14-2014 *CBC with Differential *CBC with Differential [facility] [employer] Work Phone: Start: 05-04-2014 End: 07-10-2014 *CMP Complete Metabolic Panel *CMP Complete Metabolic Panel [facility] [employer] Work Phone: Start: 05-04-2014 End: 07-14-2014 Follow Up Appt 3 months Follow Up Appt 3 months [facility] [employer] Work Phone: Start: 03-05-2014 End: 04-02-2014 *PAPIG6 Cytopath, Cerv/Vag, Fluid Auto Redo *PAPIG6 Cytopath, Cerv/Vag, Fluid Auto Redo [facility] Work Phone: Start: 02-17-2014 End: 07-14-2014 Mammogram, Screening, both breasts Mammogram, Screening, both breasts [facility] Work Phone: Start: 01-12-2014 End: 01-15-2014 Lipid panel [AGGREGATE] *Lipid Profile [facility] Work Phone: Summary Purpose Family History No [...] BE BASED ON THE PRIMARY CLINICAL RECORDS. [facility] [employer] [facility]. provides no warranty or guarantee of the accuracy or completeness of information in this document.
[2023-03-23] MEDS: DENOSUMAB 60 MG/ML SC (13:11)
== END 2023-03-23 12:44 | disposition home or self-care (01) ==
LOC: MEDOUTP 12:44
PROVIDERS: PCP Family Medicine; Referring Provider Internal Medicine Endocrinology, Diabetes & Metabolism; Visit Provider Internal Medicine Endocrinology, Diabetes & Metabolism
DX: E03.9 Hypothyroidism, unspecified (principal); M81.0 Age-related osteoporosis without current pathological fracture
CPT/HCPCS: 96372; J0897

== ENCOUNTER 2023-04-06 16:03 | Emergency (ER) | payer MEDICARE, SELFPAY ==
[2023-04-06 16:10] VITALS: BP 172/97; PULSE 96; RESP 16; TEMP 36.4; O2SAT 93; BMI 30.7
[2023-04-06 16:14] VITALS: BP 172/97; PULSE 96; RESP 18; TEMP 36.4; O2SAT 93
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
--- NOTE | 2023-04-06 16:38 | RAD_ITS ---
INDICATION: pain EXAMINATION/TECHNIQUE: X-RAY - XR Ribs Unilateral W/ PA Chest Min 3 Views COMPARISON: Prior study dated: 04/12/2022 FINDINGS: SOFT TISSUES: No soft tissue swelling or gas. BONES: Questionable acute fracture of the lateral eighth and ninth ribs. No sclerotic or destructive changes observed. VISUALIZED LUNGS: Clear. No pneumothorax. RAD/Ribs Uni Min 3V w/PA Chest IMPRESSION: Questionable acute fracture of the lateral eighth and ninth ribs. Recommend chest CT. Electronically Signed: Harpreet Newberry MD at 17:15 EST ,
--- NOTE | 2023-04-06 17:08 | CT_ITS ---
EXAMINATION : Head CT w/out contrast HISTORY : head injury COMPARISON : None. TECHNIQUE : Multiple contiguous axial images were obtained from the skull base to the vertex without intravenous contrast. A radiation dose optimization technique was used for this scan. FINDINGS : There is no evidence for acute intracranial hemorrhage, mass effect, or midline shift. There is no extra-axial fluid collection. There are periventricular white matter changes consistent with chronic microvascular ischemic disease. There is sulcal widening and ventricular enlargement consistent with cerebral atrophy. There is normal cardona-white differentiation, without CT evidence of acute ischemia or infarct. The skull base and calvarium are unremarkable. The orbits are unremarkable. The paranasal sinuses are clear. The mastoid air cells are well-aerated. The soft tissues are unremarkable. CT/Brain/Head without Contrast IMPRESSION: No acute intracranial abnormality. Chronic involutional and ischemic changes of the brain. Electronically Signed: Harpreet Newberry MD at 17:57 EST ,
--- NOTE | 2023-04-06 17:32 | CT_ITS ---
INDICATION: rib pain EXAMINATION: CT Chest W/O Contrast Injection TECHNIQUE: Helically acquired images were obtained of the chest without IV contrast. A radiation dose optimization technique was used for this scan. COMPARISON: 09/12/2012. FINDINGS: Lungs: Stable 7 mm nodule in the left lung base. Left basilar atelectasis. Mediastinum: The heart is mildly enlarged. No mediastinal, hilar or axillary adenopathy. Moderate aortic arch and coronary artery calcifications. Pleura: Unremarkable Bones/Soft tissues: There are diffuse degenerative changes of the spine. Minimally displaced acute left seventh anterolateral rib fracture. Upper abdomen: 6.2 cm right lower renal pole cyst. CT/Chest without Contrast IMPRESSION: Acute minimally displaced left seventh anterolateral rib fracture. Stable 7 mm nodule in the left lung base. Electronically Signed: Harpreet Newberry MD at 19:32 EST ,
[2023-04-06] MEDS: Acetaminophen 325 MG Tablet 650 MG PO (20:39)
[2023-04-06] MEDS: Lidocaine 5% Patch 1 PATCH TOPICAL (20:39)
[2023-04-06 20:42] VITALS: BP 180/109; PULSE 111; RESP 18; TEMP 36.4; O2SAT 92
--- NOTE | 2023-04-06 20:43 | ED.RN ---
incentive spirometer given.
== END 2023-04-06 20:54 | disposition home or self-care (01) ==
PROVIDERS: Emergency Provider Student in an Organized Health Care Education/Training Program; PCP Family Medicine; Visit Provider Student in an Organized Health Care Education/Training Program
DX: S09.90XA Unspecified injury of head, initial encounter (principal); S80.01XA Contusion of right knee, initial encounter; S22.32XA Fracture of one rib, left side, initial encounter for closed fracture; S80.02XA Contusion of left knee, initial encounter; I10 Essential (primary) hypertension; K21.9 Gastro-esophageal reflux disease without esophagitis; W19.XXXA Unspecified fall, initial encounter
CPT/HCPCS: 70450; 71101; 71250; 99283

== ENCOUNTER 2023-05-09 08:05 | Outpatient (CLI) | payer MEDICARE, SELFPAY ==
[2023-05-09] MEDS: 0.9% NaCl Peripheral Flush Adult/Peds IV (08:11)
[2023-05-09 08:15] VITALS: BP 150/78; PULSE 76; RESP 16; TEMP 35.9; O2SAT 95; BMI 26.9
[2023-05-09] MEDS: Immune Globulin 20 gm Premixed Solution 45.5 BAG IV (08:16)
[2023-05-09] MEDS: Immune Globulin 20 gm Premixed Solution 180 BAG IV (10:15)
== END 2023-05-09 08:06 | disposition home or self-care (01) ==
LOC: MEDOUTP 08:06
PROVIDERS: PCP Family Medicine; Referring Provider Internal Medicine Rheumatology; Visit Provider Internal Medicine Rheumatology
DX: M33.92 Dermatopolymyositis, unspecified with myopathy (principal)
CPT/HCPCS: 96365; 96366; A4216; J1568

== ENCOUNTER 2023-05-10 08:10 | Outpatient (CLI) | payer MEDICARE, SELFPAY ==
[2023-05-10] MEDS: Immune Globulin 20 gm Premixed Solution 45.5 BAG IV (08:34)
[2023-05-10 08:35] VITALS: BP 175/79; PULSE 77; RESP 16; TEMP 36.4; O2SAT 96; BMI 27.7
[2023-05-10] MEDS: Immune Globulin 20 gm Premixed Solution 180 BAG IV (10:25)
== END 2023-05-10 08:11 | disposition home or self-care (01) ==
LOC: MEDOUTP 08:10
PROVIDERS: PCP Family Medicine; Referring Provider Internal Medicine Rheumatology; Visit Provider Internal Medicine Rheumatology
DX: M33.92 Dermatopolymyositis, unspecified with myopathy (principal)
CPT/HCPCS: 96365; 96366; A4216; J1568

== ENCOUNTER → 2023-05-16 | Outpatient (CLI) | payer MEDICARE, SELFPAY ==
[2023-05-16 15:14] LABS: Absolute Lymphocyte Count 1.32 X10^3/uL (0.83-4.51); Absolute Neutrophil Count 3.7 X10^3/uL (2.0-7.7); Basophil# 0.07 X10^3/uL; Basophil% 1.2 % (0-1); Eosinophil# 0.07 X10^3/uL; Eosinophils% 1.2 % (0-5); Hematocrit 42.9 % (37-47); Hemoglobin 14.5 g/dL (12.0-15.0); Lymphocyte # 1.32 X10^3/ul (0.83-4.51); Mean Corp Hgb Conc 33.8 g/dL (32-36); Mean Corpuscular Hgb 30.5 pg (27.0-32.0); Mean Corpuscular Volume 90.3 fL (81-99); Mean Platelet Vol. 9.5 fl (6.2-12.0); Monocyte# 0.85 X10^3/uL; Monocyte% 14.2 % (0-10); NRBC Flagged by Analyzer 0 % (0-5); Neutrophil # 3.66 X10^3/uL (2.7-7.7); Neutrophil % 61.1 % (47-70); Platelet Count 264 K/mm3 (150-450); RBC Distribution Width CV 13.2 % (11.6-14.6); RBC Distribution Width SD 43.9 fl (35.1-43.9); Red Blood Count 4.75 M/mm3 (4.2-5.4)
[2023-05-16 15:50] LABS: ALB/GLOB Ratio 0.6 RATIO (0.9-2.4); AST(SGOT) 19 U/L (15-37); Alanine Aminotransfer ALT/SGPT 28 U/L (13-56); Albumin, Serum 3.4 g/dL (3.2-5.0); Alkaline Phosphatase 76 U/L (45-117); Anion Gap 7 (5-15); BUN 13 mg/dL (7-18); BUN/Creat Ratio 13.3 RATIO (10-20); CPK Total, Creatine Kinase 44 U/L (26-192); Calcium,Total 8.9 mg/dL (8.5-10.1); Chloride 103 mmol/L (98-107); Creatinine, Serum 0.98 mg/dL (0.55-1.02); EST Glomerular Filtration Rate 57 mL/min (>60); Est Glom Filt Rate - Afr Amer 70 mL/min (>60); Globulin 5.6 g/dL (2.2-4.2); Glucose 170 mg/dL (74-106); Potassium 3.5 mmol/L (3.5-5.1); Sodium Level 134 mmol/L (136-145)
[2023-05-18 11:09] LABS: Aldolase 2.8 U/L (3.3-10.3)
== END | disposition home or self-care (01) ==
LOC: MTLAB 12:47
PROVIDERS: PCP Family Medicine; Referring Provider Internal Medicine Rheumatology; Visit Provider Internal Medicine Rheumatology
DX: M33.92 Dermatopolymyositis, unspecified with myopathy (principal); M15.9 Polyosteoarthritis, unspecified; Z79.899 Other long term (current) drug therapy
CPT/HCPCS: 36415; 80053; 82085; 82550; 85025

== ENCOUNTER 2023-06-27 08:14 | Outpatient (CLI) | payer MEDICARE, SELFPAY ==
[2023-06-27 08:34] VITALS: BP 163/75; PULSE 93; RESP 16; TEMP 36.1; O2SAT 97; BMI 27.7
[2023-06-27] MEDS: 0.9% NaCl Peripheral Flush Adult/Peds IV (08:38)
[2023-06-27] MEDS: Immune Globulin 20 gm Premixed Solution 45.5 BAG IV (08:38)
[2023-06-27] MEDS: Immune Globulin 20 gm Premixed Solution 180 BAG IV (10:29)
== END 2023-06-27 23:59 | disposition home or self-care (01) ==
LOC: MEDOUTP 08:14
PROVIDERS: PCP Family Medicine; Referring Provider Internal Medicine Rheumatology; Visit Provider Internal Medicine Rheumatology
DX: M33.92 Dermatopolymyositis, unspecified with myopathy (principal)
CPT/HCPCS: 96365; 96366; A4216; J1568

== ENCOUNTER 2023-06-28 08:02 | Outpatient (CLI) | payer MEDICARE, SELFPAY ==
[2023-06-28 08:09] VITALS: BP 154/75; PULSE 72; RESP 16; TEMP 36.7; O2SAT 96; BMI 27.7
[2023-06-28] MEDS: 0.9% NaCl Peripheral Flush Adult/Peds IV (08:18)
[2023-06-28] MEDS: Immune Globulin 20 gm Premixed Solution 45.5 BAG IV (08:30)
[2023-06-28] MEDS: Immune Globulin 20 gm Premixed Solution 180 BAG IV (10:24)
== END 2023-06-28 23:59 | disposition home or self-care (01) ==
LOC: MEDOUTP 08:02
PROVIDERS: PCP Family Medicine; Referring Provider Internal Medicine Rheumatology; Visit Provider Internal Medicine Rheumatology
DX: M33.92 Dermatopolymyositis, unspecified with myopathy (principal)
CPT/HCPCS: 96365; 96366; A4216; J1568

== ENCOUNTER → 2023-07-05 | Outpatient (CLI) | payer MEDICARE, SELFPAY ==
[2023-07-05 16:16] LABS: ALB/GLOB Ratio 0.7 RATIO (0.9-2.4); AST(SGOT) 28 U/L (15-37); Alanine Aminotransfer ALT/SGPT 39 U/L (13-56); Albumin, Serum 3.7 g/dL (3.2-5.0); Alkaline Phosphatase 64 U/L (45-117); Anion Gap 9 (5-15); BUN 10 mg/dL (7-18); BUN/Creat Ratio 15.4 RATIO (10-20); Calcium,Total 9.3 mg/dL (8.5-10.1); Chloride 104 mmol/L (98-107); Creatinine, Serum 0.65 mg/dL (0.55-1.02); EST Glomerular Filtration Rate 92 mL/min (>60); Est Glom Filt Rate - Afr Amer 111 mL/min (>60); Globulin 5.3 g/dL (2.2-4.2); Glucose 97 mg/dL (74-106); Potassium 3.8 mmol/L (3.5-5.1); Sodium Level 136 mmol/L (136-145); T4 Free Direct 0.85 ng/dL (0.76-1.46)
[2023-07-05 16:24] LABS: Vitamin D,25 Hydroxy 61.3 ng/mL
== END | disposition home or self-care (01) ==
LOC: MTLAB 12:34
PROVIDERS: PCP Family Medicine; Referring Provider Nurse Practitioner Family; Visit Provider Nurse Practitioner Family
DX: M81.0 Age-related osteoporosis without current pathological fracture (principal); E03.8 Other specified hypothyroidism; E06.3 Autoimmune thyroiditis
CPT/HCPCS: 36415; 80053; 82306; 84439; 84443

== ENCOUNTER 2023-08-22 08:00 | Outpatient (CLI) | payer MEDICARE, SELFPAY ==
[2023-08-22] MEDS: 0.9% NaCl Peripheral Flush Adult/Peds IV (08:12)
[2023-08-22 08:19] VITALS: BP 165/77; PULSE 86; RESP 16; TEMP 36.3; O2SAT 95; BMI 28.1
[2023-08-22] MEDS: Immune Globulin 20 gm 20 GM/200 ML VIAL IV ×2 (08:22→10:19)
== END 2023-08-22 23:59 | disposition home or self-care (01) ==
LOC: MEDOUTP 08:00
PROVIDERS: PCP Family Medicine; Referring Provider Internal Medicine Rheumatology; Visit Provider Internal Medicine Rheumatology
DX: M33.92 Dermatopolymyositis, unspecified with myopathy (principal)
CPT/HCPCS: 96365; 96366; A4216; J1568

== ENCOUNTER 2023-08-23 08:09 | Outpatient (CLI) | payer MEDICARE, SELFPAY ==
[2023-08-23 08:20] VITALS: BP 172/74; PULSE 72; RESP 16; TEMP 36.2; O2SAT 97; BMI 28.1
[2023-08-23] MEDS: Immune Globulin 20 gm 20 GM/200 ML VIAL IV ×2 (08:39→10:35)
[2023-08-23] MEDS: 0.9% NaCl Peripheral Flush Adult/Peds IV (08:39)
== END 2023-08-23 23:59 | disposition home or self-care (01) ==
LOC: MEDOUTP 08:10
PROVIDERS: PCP Family Medicine; Referring Provider Internal Medicine Rheumatology; Visit Provider Internal Medicine Rheumatology
DX: M33.92 Dermatopolymyositis, unspecified with myopathy (principal)
CPT/HCPCS: 96365; 96366; A4216; J1568

== ENCOUNTER → 2023-09-04 | Outpatient (CLI) | payer MEDICARE, SELFPAY ==
[2023-09-04 13:00] LABS: ALB/GLOB Ratio 0.7 RATIO (0.9-2.4); AST(SGOT) 25 U/L (15-37); Alanine Aminotransfer ALT/SGPT 34 U/L (13-56); Albumin, Serum 3.6 g/dL (3.2-5.0); Alkaline Phosphatase 86 U/L (45-117); Anion Gap 8 (5-15); BUN 15 mg/dL (7-18); BUN/Creat Ratio 21.7 RATIO (10-20); CPK Total, Creatine Kinase 49 U/L (26-192); Calcium,Total 9.7 mg/dL (8.5-10.1); Chloride 105 mmol/L (98-107); Creatinine, Serum 0.69 mg/dL (0.55-1.02); EST Glomerular Filtration Rate 85 mL/min (>60); Est Glom Filt Rate - Afr Amer 103 mL/min (>60); Globulin 5.1 g/dL (2.2-4.2); Glucose 113 mg/dL (74-106); Potassium 3.8 mmol/L (3.5-5.1); Protein, Total 8.7 g/dL (6.4-8.2); Sodium Level 137 mmol/L (136-145)
[2023-09-06 13:08] LABS: Aldolase 3.5 U/L (3.3-10.3)
== END | disposition home or self-care (01) ==
LOC: MTLAB 09:42
PROVIDERS: PCP Family Medicine; Referring Provider Internal Medicine Rheumatology; Visit Provider Internal Medicine Rheumatology
DX: M33.92 Dermatopolymyositis, unspecified with myopathy (principal); M15.9 Polyosteoarthritis, unspecified; Z79.899 Other long term (current) drug therapy
CPT/HCPCS: 36415; 80053; 82085; 82550

== ENCOUNTER 2023-10-17 08:15 | Outpatient (CLI) | payer MEDICARE, SELFPAY ==
[2023-10-17 08:27] VITALS: BP 159/84; PULSE 89; RESP 16; TEMP 35.8; O2SAT 95
[2023-10-17] MEDS: 0.9% NaCl Peripheral Flush Adult/Peds IV (08:32)
[2023-10-17] MEDS: Immune Globulin 20 gm 20 GM/200 ML VIAL IV ×2 (08:37→10:28)
== END 2023-10-17 23:59 | disposition home or self-care (01) ==
LOC: MEDOUTP 08:16
PROVIDERS: PCP Family Medicine; Referring Provider Internal Medicine Rheumatology; Visit Provider Internal Medicine Rheumatology
DX: M33.92 Dermatopolymyositis, unspecified with myopathy (principal)
CPT/HCPCS: 96365; 96366; A4216; J1568

== ENCOUNTER 2023-10-19 08:03 | Outpatient (CLI) | payer MEDICARE, SELFPAY ==
[2023-10-19 08:12] VITALS: BP 169/76; PULSE 80; RESP 16; TEMP 36; O2SAT 95; BMI 27.7
== END 2023-10-19 23:59 | disposition home or self-care (01) ==
LOC: MEDOUTP 08:03
PROVIDERS: PCP Family Medicine; Referring Provider Internal Medicine Endocrinology, Diabetes & Metabolism; Visit Provider Internal Medicine Endocrinology, Diabetes & Metabolism
DX: M81.0 Age-related osteoporosis without current pathological fracture (principal)

== ENCOUNTER 2023-10-19 08:26 | Outpatient (CLI) | payer MEDICARE, SELFPAY ==
[2023-10-19] MEDS: Immune Globulin 20 gm 20 GM/200 ML VIAL IV ×2 (08:25→10:19)
[2023-10-19] MEDS: 0.9% NaCl Peripheral Flush Adult/Peds IV (08:25)
[2023-10-19 08:29] VITALS: BP 169/76; PULSE 80; RESP 16; TEMP 36; O2SAT 95
[2023-10-19] MEDS: DENOSUMAB 60 MG/ML SC (08:32)
== END 2023-10-19 23:59 | disposition home or self-care (01) ==
LOC: MEDOUTP 08:26
PROVIDERS: PCP Family Medicine; Referring Provider Internal Medicine Rheumatology; Visit Provider Internal Medicine Rheumatology
DX: M33.92 Dermatopolymyositis, unspecified with myopathy (principal)
CPT/HCPCS: 96365; 96366; 96372; A4216; J0897; J1568

== ENCOUNTER → 2023-11-02 | Outpatient (CLI) | payer MEDICARE, SELFPAY ==
[2023-11-02 10:40] LABS: Absolute Lymphocyte Count 1.56 X10^3/uL (0.83-4.51); Absolute Neutrophil Count 4.3 X10^3/uL (2.0-7.7); Basophil# 0.06 X10^3/uL; Basophil% 0.9 % (0-1); Eosinophil# 0.05 X10^3/uL; Eosinophils% 0.7 % (0-5); Hematocrit 42.5 % (37-47); Hemoglobin 14.2 g/dL (12.0-15.0); Lymphocyte # 1.56 X10^3/ul (0.83-4.51); Lymphocyte % 23.4 % (19-41); Mean Corp Hgb Conc 33.4 g/dL (32-36); Mean Corpuscular Hgb 30.5 pg (27.0-32.0); Mean Corpuscular Volume 91.4 fL (81-99); Mean Platelet Vol. 9.3 fl (6.2-12.0); Monocyte# 0.67 X10^3/uL; NRBC Flagged by Analyzer 0 % (0-5); Neutrophil % 64.4 % (47-70); Platelet Count 364 K/mm3 (150-450); RBC Distribution Width CV 13.7 % (11.6-14.6); RBC Distribution Width SD 44.9 fl (35.1-43.9); Red Blood Count 4.65 M/mm3 (4.2-5.4); White Blood Count 6.7 K/mm3 (4.4-11.0)
== END | disposition home or self-care (01) ==
LOC: MTLAB 09:12
PROVIDERS: PCP Family Medicine; Referring Provider Internal Medicine Rheumatology; Visit Provider Internal Medicine Rheumatology
DX: M33.92 Dermatopolymyositis, unspecified with myopathy (principal); M15.9 Polyosteoarthritis, unspecified; Z79.899 Other long term (current) drug therapy
CPT/HCPCS: 85025

== ENCOUNTER 2023-12-12 08:09 | Outpatient (CLI) | payer MEDICARE, SELFPAY ==
[2023-12-12 08:25] VITALS: BP 159/78; PULSE 71; RESP 16; TEMP 36.2; O2SAT 96; BMI 27.3
[2023-12-12] MEDS: Immune Globulin 20 gm 20 GM/200 ML VIAL IV ×2 (09:07→11:00)
[2023-12-12] MEDS: 0.9% NaCl Peripheral Flush Adult/Peds IV (09:08)
== END 2023-12-12 23:59 | disposition home or self-care (01) ==
LOC: MEDOUTP 08:09
PROVIDERS: PCP Family Medicine; Referring Provider Internal Medicine Rheumatology; Visit Provider Internal Medicine Rheumatology
DX: M33.92 Dermatopolymyositis, unspecified with myopathy (principal)
CPT/HCPCS: 96365; 96366; A4216; J1568

== ENCOUNTER 2023-12-13 08:08 | Outpatient (CLI) | payer MEDICARE, SELFPAY ==
[2023-12-13 08:22] VITALS: BP 153/74; PULSE 79; RESP 16; TEMP 36.1; O2SAT 95; BMI 27.3
[2023-12-13] MEDS: 0.9% NaCl Peripheral Flush Adult/Peds IV (08:34)
[2023-12-13] MEDS: Immune Globulin 20 gm 20 GM/200 ML VIAL IV ×2 (08:35→10:25)
== END 2023-12-13 23:59 | disposition home or self-care (01) ==
LOC: MEDOUTP 08:09
PROVIDERS: PCP Family Medicine; Referring Provider Internal Medicine Rheumatology; Visit Provider Internal Medicine Rheumatology
DX: M33.92 Dermatopolymyositis, unspecified with myopathy (principal)
CPT/HCPCS: 96365; 96366; J7040; A4216; J1568

== ENCOUNTER → 2024-01-22 | Outpatient (CLI) | payer MEDICARE, SELFPAY ==
[2024-01-22 12:29] LABS: Absolute Lymphocyte Count 1.91 X10^3/uL (0.83-4.51); Absolute Neutrophil Count 6.5 X10^3/uL (2.0-7.7); Basophil# 0.08 X10^3/uL; Basophil% 0.8 % (0-1); Eosinophil# 0.07 X10^3/uL; Eosinophils% 0.7 % (0-5); Hematocrit 45.7 % (37-47); Hemoglobin 15.5 g/dL (12.0-15.0); Lymphocyte # 1.91 X10^3/ul (0.83-4.51); Lymphocyte % 20.2 % (19-41); Mean Corp Hgb Conc 33.9 g/dL (32-36); Mean Corpuscular Hgb 31.4 pg (27.0-32.0); Mean Corpuscular Volume 92.7 fL (81-99); Mean Platelet Vol. 9.3 fl (6.2-12.0); Monocyte# 0.92 X10^3/uL; Monocyte% 9.7 % (0-10); NRBC Flagged by Analyzer 0 % (0-5); Neutrophil # 6.45 X10^3/uL (2.7-7.7); Neutrophil % 68.2 % (47-70); Platelet Count 310 K/mm3 (150-450); RBC Distribution Width CV 14.2 % (11.6-14.6); RBC Distribution Width SD 47.3 fl (35.1-43.9); Red Blood Count 4.93 M/mm3 (4.2-5.4); White Blood Count 9.5 K/mm3 (4.4-11.0)
[2024-01-22 12:58] LABS: ALB/GLOB Ratio 0.9 RATIO (0.9-2.4); AST(SGOT) 21 U/L (15-37); Alanine Aminotransfer ALT/SGPT 47 U/L (13-56); Albumin, Serum 3.9 g/dL (3.2-5.0); Alkaline Phosphatase 68 U/L (45-117); Anion Gap 7 (5-15); BUN 12 mg/dL (7-18); BUN/Creat Ratio 18.8 RATIO (10-20); CPK Total, Creatine Kinase 41 U/L (26-192); Calcium,Total 9.9 mg/dL (8.5-10.1); Chloride 105 mmol/L (98-107); Creatinine, Serum 0.64 mg/dL (0.55-1.02); EST Glomerular Filtration Rate 93 mL/min (>60); Est Glom Filt Rate - Afr Amer 113 mL/min (>60); Globulin 4.2 g/dL (2.2-4.2); Glucose 112 mg/dL (74-106); Potassium 3.6 mmol/L (3.5-5.1); Protein, Total 8.1 g/dL (6.4-8.2); Sodium Level 136 mmol/L (136-145)
[2024-01-23 15:07] LABS: Aldolase 4.8 U/L (3.3-10.3)
== END | disposition home or self-care (01) ==
PROVIDERS: PCP Family Medicine; Referring Provider Internal Medicine Rheumatology; Visit Provider Internal Medicine Rheumatology
DX: M33.92 Dermatopolymyositis, unspecified with myopathy (principal); Z79.899 Other long term (current) drug therapy
CPT/HCPCS: 36415; 80053; 82085; 82550; 85025

== ENCOUNTER 2024-02-13 08:09 | Outpatient (CLI) | payer MEDICARE, SELFPAY ==
[2024-02-13 08:24] VITALS: BP 150/77; PULSE 75; RESP 16; TEMP 36.3; O2SAT 96
[2024-02-13] MEDS: 0.9% NaCl Peripheral Flush Adult/Peds IV (08:29)
[2024-02-13] MEDS: Immune Globulin 20 gm 20 GM/200 ML VIAL IV ×2 (08:44→10:36)
== END 2024-02-13 23:59 | disposition home or self-care (01) ==
LOC: MEDOUTP 08:12
PROVIDERS: PCP Family Medicine; Referring Provider Internal Medicine Rheumatology; Visit Provider Internal Medicine Rheumatology
DX: M33.92 Dermatopolymyositis, unspecified with myopathy (principal)
CPT/HCPCS: 96365; 96366; A4216; J1568

== ENCOUNTER 2024-02-15 08:11 | Outpatient (CLI) | payer MEDICARE, SELFPAY ==
[2024-02-15] MEDS: 0.9% NaCl Peripheral Flush Adult/Peds IV (08:23)
[2024-02-15] MEDS: Immune Globulin 20 gm 20 GM/200 ML VIAL IV ×2 (08:24→10:29)
[2024-02-15 08:30] VITALS: BMI 27.6
[2024-02-15 11:48] VITALS: BP 161/86; PULSE 70; RESP 16; TEMP 35.9; O2SAT 92
== END 2024-02-15 23:59 | disposition home or self-care (01) ==
LOC: MEDOUTP 08:11
PROVIDERS: PCP Family Medicine; Referring Provider Internal Medicine Rheumatology; Visit Provider Internal Medicine Rheumatology
DX: M33.92 Dermatopolymyositis, unspecified with myopathy (principal)
CPT/HCPCS: 96365; 96366; A4216; J1568

== ENCOUNTER 2024-04-09 08:09 | Outpatient (CLI) | payer MEDICARE, SELFPAY ==
[2024-04-09] MEDS: Immune Globulin 20 gm 20 GM/200 ML VIAL IV ×2 (08:35→10:25)
[2024-04-09 08:41] VITALS: BP 145/79; PULSE 69; RESP 14; TEMP 36.1; O2SAT 96; BMI 27.5
== END 2024-04-09 23:59 | disposition home or self-care (01) ==
LOC: MEDOUTP 08:10
PROVIDERS: PCP Family Medicine; Referring Provider Internal Medicine Rheumatology; Visit Provider Internal Medicine Rheumatology
DX: M33.92 Dermatopolymyositis, unspecified with myopathy (principal)
CPT/HCPCS: 96365; 96366; A4216; J1568

== ENCOUNTER 2024-04-11 08:04 | Outpatient (CLI) | payer MEDICARE, SELFPAY ==
[2024-04-11 08:47] VITALS: BP 158/72; PULSE 80; RESP 16; TEMP 36; O2SAT 96; BMI 27.5
[2024-04-11] MEDS: Immune Globulin 20 gm 20 GM/200 ML VIAL IV ×2 (08:49→10:59)
[2024-04-11] MEDS: DENOSUMAB 60 MG/ML SC (08:57)
== END 2024-04-11 23:59 | disposition home or self-care (01) ==
LOC: MEDOUTP 08:04
PROVIDERS: PCP Family Medicine; Referring Provider Family Medicine; Visit Provider Family Medicine
DX: M81.0 Age-related osteoporosis without current pathological fracture (principal); M33.92 Dermatopolymyositis, unspecified with myopathy
CPT/HCPCS: 96365; 96366; 96372; A4216; J0897; J1568

== ENCOUNTER → 2024-04-22 | Outpatient (CLI) | payer MEDICARE, SELFPAY ==
[2024-04-22 10:32] LABS: Absolute Lymphocyte Count 1.19 X10^3/uL (0.83-4.51); Absolute Neutrophil Count 4.2 X10^3/uL (2.0-7.7); Basophil# 0.07 X10^3/uL; Basophil% 1.1 % (0-1); Eosinophil# 0.05 X10^3/uL; Eosinophils% 0.8 % (0-5); Hematocrit 41.3 % (37-47); Hemoglobin 14.4 g/dL (12.0-15.0); Lymphocyte # 1.19 X10^3/ul (0.83-4.51); Lymphocyte % 19.1 % (19-41); Mean Corp Hgb Conc 34.9 g/dL (32-36); Mean Corpuscular Hgb 31.8 pg (27.0-32.0); Mean Corpuscular Volume 91.2 fL (81-99); Mean Platelet Vol. 9.9 fl (6.2-12.0); Monocyte# 0.71 X10^3/uL; Monocyte% 11.4 % (0-10); NRBC Flagged by Analyzer 0 % (0-5); Neutrophil # 4.19 X10^3/uL (2.7-7.7); Neutrophil % 67.1 % (47-70); Platelet Count 322 K/mm3 (150-450); RBC Distribution Width CV 14.4 % (11.6-14.6); Red Blood Count 4.53 M/mm3 (4.2-5.4); White Blood Count 6.2 K/mm3 (4.4-11.0)
[2024-04-22 10:48] LABS: AST(SGOT) 30 U/L (<=31); Alanine Aminotransfer ALT/SGPT 36 U/L (<=34); Alkaline Phosphatase 81 U/L (35-104); Anion Gap 13 (5-15); BUN 9 mg/dL (4-19); BUN/Creat Ratio 14.5 RATIO (10-20); Calcium,Total 9.3 mg/dL (7.6-11.0); Carbon Dioxide 19.9 mmol/L (21.0-32.0); Chloride 103 mmol/L (98-108); Creatinine, Serum 0.62 mg/dL (0.70-1.20); EST Glomerular Filtration Rate 86 (>60); Free T3 3.7 pg/mL (2.18-3.98); Globulin 4.1 g/dL (2.2-4.2); Glucose 213 mg/dL (70-99); Potassium 3.6 mmol/L (3.3-5.1); Protein, Total 8.1 g/dL (5.9-8.4); Sodium Level 136 mmol/L (133-145); Thyroid Stim Hormone (TSH) 0.162 uIU/mL (0.300-4.200); Total Bilirubin 0.52 mg/dL (0.00-1.30)
[2024-04-22 12:07] LABS: CPK Total, Creatine Kinase 36 U/L (24-195)
== END | disposition home or self-care (01) ==
LOC: MTLAB 09:06
PROVIDERS: PCP Family Medicine; Referring Provider Family Medicine; Visit Provider Family Medicine
DX: M33.92 Dermatopolymyositis, unspecified with myopathy (principal); Z79.899 Other long term (current) drug therapy
CPT/HCPCS: 36415; 80053; 82550; 84439; 84443; 84481; 85025

== ENCOUNTER 2024-06-02 08:11 | Outpatient (CLI) | payer MEDICARE, SELFPAY ==
[2024-06-02 08:27] VITALS: BP 156/70; PULSE 73; RESP 16; TEMP 36.1; O2SAT 95; BMI 25.5
[2024-06-02] MEDS: Immune Globulin 20 gm 20 GM/200 ML VIAL IV (08:35)
[2024-06-02] MEDS: 0.9% NaCl Peripheral Flush Adult IV (08:38)
[2024-06-02] MEDS: Immune Globulin 10 gm 10 GM/100 ML VIAL IV (10:30)
[2024-06-02] MEDS: Immune Globulin 5 GM 5 GM/50 ML VIAL IV (11:04)
== END 2024-06-02 23:59 | disposition home or self-care (01) ==
LOC: MEDOUTP 08:13
PROVIDERS: PCP Family Medicine; Referring Provider Internal Medicine Rheumatology; Visit Provider Internal Medicine Rheumatology
DX: M33.92 Dermatopolymyositis, unspecified with myopathy (principal)
CPT/HCPCS: 96365; 96366; A4216; J1568

== ENCOUNTER 2024-06-04 08:07 | Outpatient (CLI) | payer MEDICARE, SELFPAY ==
[2024-06-04 08:20] VITALS: BP 159/77; PULSE 72; RESP 16; TEMP 36.2; O2SAT 96; BMI 27.5
[2024-06-04] MEDS: Immune Globulin 20 gm 20 GM/200 ML VIAL IV (08:25)
[2024-06-04] MEDS: 0.9% NaCl Peripheral Flush Adult IV (08:52)
[2024-06-04] MEDS: Immune Globulin 10 gm 10 GM/100 ML VIAL IV (10:18)
[2024-06-04] MEDS: Immune Globulin 5 GM 5 GM/50 ML VIAL IV (10:56)
[2024-06-04 11:20] VITALS: BP 143/70; PULSE 56; RESP 16; TEMP 35.9
== END 2024-06-04 23:59 | disposition home or self-care (01) ==
LOC: MEDOUTP 08:07
PROVIDERS: PCP Family Medicine; Referring Provider Internal Medicine Rheumatology; Visit Provider Internal Medicine Rheumatology
DX: M33.92 Dermatopolymyositis, unspecified with myopathy (principal)
CPT/HCPCS: 96365; 96366; A4216; J1568

== ENCOUNTER → 2024-06-12 | Outpatient (CLI) | payer MEDICARE, SELFPAY ==
[2024-06-12 13:31] LABS: Absolute Lymphocyte Count 1.45 X10^3/uL (0.83-4.51); Absolute Neutrophil Count 4.5 X10^3/uL (2.0-7.7); Basophil# 0.09 X10^3/uL; Basophil% 1.3 % (0-1); Eosinophil# 0.07 X10^3/uL; Hematocrit 41.9 % (37-47); Hemoglobin 14.4 g/dL (12.0-15.0); Lymphocyte # 1.45 X10^3/ul (0.83-4.51); Lymphocyte % 21.6 % (19-41); Mean Corp Hgb Conc 34.4 g/dL (32-36); Mean Corpuscular Hgb 31.6 pg (27.0-32.0); Mean Corpuscular Volume 91.9 fL (81-99); Mean Platelet Vol. 9.7 fl (6.2-12.0); Monocyte# 0.57 X10^3/uL; Monocyte% 8.5 % (0-10); NRBC Flagged by Analyzer 0 % (0-5); Neutrophil % 67.2 % (47-70); Platelet Count 318 K/mm3 (150-450); RBC Distribution Width CV 13.5 % (11.6-14.6); RBC Distribution Width SD 44.8 fl (35.1-43.9); Red Blood Count 4.56 M/mm3 (4.2-5.4); White Blood Count 6.7 K/mm3 (4.4-11.0)
[2024-06-12 14:12] LABS: AST(SGOT) 29 U/L (<=31); Alanine Aminotransfer ALT/SGPT 36 U/L (<=34); Alkaline Phosphatase 64 U/L (35-104); Anion Gap 12 (5-15); BUN 9 mg/dL (4-19); BUN/Creat Ratio 15.2 RATIO (10-20); CPK Total, Creatine Kinase 32 U/L (24-195); Calcium,Total 9.7 mg/dL (7.6-11.0); Carbon Dioxide 21.9 mmol/L (21.0-32.0); Chloride 103 mmol/L (98-108); Creatinine, Serum 0.59 mg/dL (0.70-1.20); EST Glomerular Filtration Rate 87 (>60); Globulin 4.1 g/dL (2.2-4.2); Glucose 176 mg/dL (70-99); Potassium 3.9 mmol/L (3.3-5.1); Protein, Total 8.1 g/dL (5.9-8.4); Sodium Level 136 mmol/L (133-145); Total Bilirubin 0.51 mg/dL (0.00-1.30)
== END | disposition home or self-care (01) ==
LOC: MTLAB 10:05
PROVIDERS: PCP Family Medicine; Referring Provider Internal Medicine Rheumatology; Visit Provider Internal Medicine Rheumatology
DX: M33.92 Dermatopolymyositis, unspecified with myopathy (principal); Z79.899 Other long term (current) drug therapy
CPT/HCPCS: 36415; 80053; 82550; 85025

== ENCOUNTER 2024-07-30 07:57 | Outpatient (CLI) | payer MEDICARE, SELFPAY ==
[2024-07-30 08:04] VITALS: BP 150/76; PULSE 76; RESP 18; TEMP 35.8; O2SAT 95; BMI 26.5
[2024-07-30] MEDS: 0.9% NaCl Peripheral Flush Adult IV (08:07)
[2024-07-30] MEDS: Immune Globulin 20 gm 20 GM/200 ML VIAL IV (08:18)
[2024-07-30] MEDS: Immune Globulin 10 gm 10 GM/100 ML VIAL IV (10:06)
[2024-07-30] MEDS: Immune Globulin 5 GM 5 GM/50 ML VIAL IV (10:51)
== END 2024-07-30 23:59 | disposition home or self-care (01) ==
LOC: MEDOUTP 07:58
PROVIDERS: PCP Family Medicine; Referring Provider Internal Medicine Rheumatology; Visit Provider Internal Medicine Rheumatology
DX: M33.92 Dermatopolymyositis, unspecified with myopathy (principal)
CPT/HCPCS: 96365; 96366; A4216; J1568

== ENCOUNTER 2024-08-01 08:00 | Outpatient (CLI) | payer MEDICARE, SELFPAY ==
[2024-08-01 08:15] VITALS: BP 164/78; PULSE 76; RESP 16; TEMP 35.7; O2SAT 96; BMI 26.5
[2024-08-01] MEDS: 0.9% NaCl Peripheral Flush Adult IV (08:25)
[2024-08-01] MEDS: Immune Globulin 20 gm 20 GM/200 ML VIAL IV (08:25)
[2024-08-01] MEDS: Immune Globulin 10 gm 10 GM/100 ML VIAL IV (10:26)
[2024-08-01] MEDS: Immune Globulin 5 GM 5 GM/50 ML VIAL IV (11:06)
--- OUTSIDE RECORDS SUMMARY | 2024-08-01 11:09 | XMS RPT_ITS | CCD ---
Author Organization [facility] Care Team Providers Care Audiology Technician Name Role Phone Dilma Loo Unavailable Unavailable Chepe IQBAL, Blake Tom Unavailable Job RN RN, Bel Jones Unavailable Unavailabl e Dr. Catia Christian Primary Care Provider Dr. Catia Christian Referring Provider [phone] Dr. Magdy Mane Attending Provider Dr. Magdy Mane Attending Provider Dr. Catia Christian Primary Care Provider [phone] Roderick Trinh Emergency Provider Dr. Jeronimo Mooney Admit Provider Dr. Jeronimo Mooney Attending Provider Dr. Jeronimo Mooney Other Provider Dr. David Nichols Attending Provider Dr. Fer Schneider Attending Provider Dr. Fer Schneider Other Provider Dr. Catia Christian Primary Care Provider Dr. Roderick Trinh Emergency Provider Dr. Jeronimo Mooneyit Provider Dr. Jeronimo Mooney Attending Provider Dr. Jeronimo Mooney Other Provider Dr. David Nichols Attending Provider Dr. Fer Schneider Attending Provider Dr. Fer Schneider Other Provider 1([facility])[phone] Malys, Dr. Bardales Primary Care Provider 1([facility])[phone] Dr. David Nichols Attending Provider 1([facility])[phone] Skinny, Dr. Clif Womack Other Provider Dr. Juan A Chandler Attending Provider 1([facility])[phone] Skinny, Dr. Clif Womack Referring Provider 1([facility])[phone] Gino, Dr. Bardales Referring Provider 1([facility])[phone] , Dr. Curran Attending Provider 1([facility])[phone] Malys, Dr. Bardales Primary Care Provider 1([facility])[phone] Malys DO, Dr. Bardales Primary Care Provider 1([facility])[phone] Jennifer IQBAL, Dr. Estrada Attending Provider Jennifer IQBAL, Dr. Estrada Referring Provider Jarenys DO, Dr. Bardales Attending Provider 1([facility])[phone] Malys DO, Dr. Badrales Referring Provider 1([facility])[phone] Malys DO, Dr. Bardales Primary Care Provider 1([facility])[phone] Jennifer IQBAL, Dr. Estrada Attending Provider Jennifer IQBAL, Dr. Estrada Referring Provider Gino DO, Dr. Bardales Attending Provider 1([facility])[phone] Gino DO, Dr. Bardales Referring Provider 1([facility])[phone] Jennifer IQBAL, Dr. Estrada Other Provider 1([facility])[phone] Gino DO, Dr. Bardales Primary Care Provider 1([facility])[phone] Jennifer IQBAL, Dr. Estrada Attending Provider Jennifer IQBAL, Dr. Estrada Referring Provider Natalie Rodriguez Referring Unavailable Malys, Catia Primary Care Unavailable VellankiNatalie Attending Unavailable Malys, Catia Referring Unavailable Malys, Catia Primary Care Unavailable Magdy Mane Attending Unavailable Malys, Catia Primary Care Unavailable Vellanki, Natalie Attending Unavailable Vellanki, Natalie Referring Unavailable Vellanki, Natalie Referring Unavailable Malys, Catia Primary Care Unavailable Vellanki, Natalie Attending Unavailable Vellanki, Natalie Attending Unavailable Vellanki, Natalie Referring Unavailable Malys, Catia Primary Care Unavailable Vellanki, Natalie Referring Unavailable Vellanki, Natalie Attending Unavailable Malys, Catia Primary Care Unavailable Vellanki, Natalie Referring Unavailable Vellanki, Natalie Attending Unavailable Malys, Catia Primary Care Unavailable Vellanki, Natalie Attending Unavailable Vellanki, Natalie Referring Unavailable Malys, Catia Primary Care Unavailable Malys, Catia Referring Unavailable Malys, Catia Attending Unavailable Malys, Catia Primary Care Unavailable Vellanki, Natalie Attending Unavailable Vellanki, Natalie Referring Unavailable Malys, Catia Primary Care Unavailable Malys, Catia Primary Care Unavailable Alhaji, Magdy Referring Unavailable Alhaji, Magdy Attending Unavailable Vellanki, Natalie Attending Unavailable Vellanki, Natalie Referring Unavailable Malys, Catia Primary Care Unavailable Vellanki, Natalie Attending Unavailable Vellanki, Natalie Referring Unavailable Malys, Catia Primary Care Unavailable Vellanki, Natalie Attending Unavailable Vellanki, Natalie Referring Unavailable Malys, Catia Primary Care Unavailable Vellanki, Natalie Attending Unavailable Vellanki, Natalie Referring Unavailable Malys, Catia Primary Care Unavailable Vellanki, Natalie Referring Unavailable Malys, Catia Primary Care Unavailable Vellanki, Natalie Attending Unavailable Malys, Catia Primary Care Unavailable Vellanki, Natalie Attending Unavailable Vellanki, Natalie Referring Unavailable Malys, Catia Primary Care Unavailable Malys, Catia Referring Unavailable Malys, Catia Attending Unavailable Vellanki, Natalie Consulting Unavailable Malys, Catia Primary Care Unavailable Vellanki, Natalie Attending Unavailable Vellanki, Natalie Referring Unavailable Vellanki, Natalie Referring Unavailable Malys, Catia Primary Care Unavailable Vellanki, Natalie Attending Unavailable Vellanki, Natalie Referring Unavailable Malys, Catia Primary Care Unavailable Vellanki, Natalie Attending Unavailable Allergies Allergy Classification Reported Allergen(s) Allergy Type Date of Onset Reaction(s) Facility (20 sources) abaloparatide Drug Allergy 06-07-2021 vomitting [facility] (1 source) abaloparatide Drug allergy (disorder) 07-30-2024 [facility] Repository Medications Current Medications Medication Drug Class(es) Dates Sig (Normalized) Sig (Original) acetaminophen 500 mg oral tablet (20 sources) Start: 01-25-2022 End: 03-23-2022 take 2 tablets by mouth every eight hours as needed for pain Acetaminophen 500 mg tablet Active 1000 mg PO EVERY 8 HOURS as needed for Pain March 23, 2022 10:19am Start: 01-25-2022 End: 03-23-2022 take 1000 mg by mouth every eight hours Acetaminophen Active 1000 MG PO EVERY 8 HOURS March 23, 2022 10:19am Start: 01-03-2022 End: 06-27-2023 take 2 tablets by mouth every six hours as needed for pain Acetaminophen (Tylenol) 325 mg Tablet Discontinued 650 mg PO EVERY 6 HOURS NEEDED as needed for Pain Score 1-10 0 January 03, 2022 1:00am June 27, 2023 8:28am acetaminophen 300 mg / codeine phosphate 30 mg oral tablet (8 sources) Opioid Agonist Start: 04-06-2023 Acetaminophen- Codeine 300-30 mg tablet Active 1 {tbl} PO Q8H as needed for pain 12 April 06, 2023 1:00am Start: 04-06-2023 take 1 tablet by brandy th every eight hours Acetaminophen-Codeine Active 1 TABLET PO Q8H 12 April 06, 2023 1:00am amLODIPine 10 mg oral tablet (20 sources) Dihydropyridine Calcium Channel Angeline Start: 01-25-2022 take 1 tablet by mouth once daily Amlodipine 10 mg Tablet Active 10 mg PO DAILY 0 January 25, 2022 1:00am Start: 06-07-2021 End: 01-03-2022 Amlodipine 10 mg tablet Disc ontinued 10 NMA PO DAILY June 07, 2021 12:00am January 03, 2022 4:28pm Start: 06-07-2021 End: 01-03-2022 Amlodipine Discontinued 10 E ACH PO DAILY June 07, 2021 12:00am January 03, 2022 4:28pm Start: 01-07-2014 take 1 tablet by brandy th once daily AMLODIPINE BESYLATE 5 MG TABS One tablet by mouth daily AMLODIPINE BESYLATE [id number] Catia Christian, aspirin 81 mg chewable tablet (20 sources) Platelet Aggregation Inhibitor, Nonsteroidal Anti-inflammatory Drug Start: 01-03-2022 End: 01-03-2022 take 1 tablet by mouth once daily Aspirin 81 mg tablet,chewable Active 81 mg PO DAILY January 03, 2022 7:19pm Start: 01-03-2022 End: 01-03-2022 take 81 mg by mouth twice daily Aspirin Active 81 MG P O TWICE A DAY January 03, 2022 7:19pm atorvastatin 40 mg oral tablet (20 sources) HMG-CoA Reductase Inhibitor Start: 01-03-2022 End: 01-03-2022 take 1 tablet by mouth once daily Atorvastatin (Lipitor) 40 mg tablet Active 40 mg PO DAILY January 03, 2022 7:19pm bevacizumab (20 sources) Vascular Endothelial Growth Factor Inhibitor Start: 06-07-2021 avastin moblwl2 Active SC June 07, 2021 2:32pm Start: 06-07-2021 avastin moblwl 2 Active 1 INSERT SC EVERY WEEK June 06, 2021 11:00pm every 8 weeks Start: 06-07-2021 avastin moblwl 2 Active SC June 06, 2021 11:00pm Start: 06-07-2021 avastin moblwl 2 Active SC June 07, 2021 12:00am Start: 08-03-2020 inject 25 mg into th e eye(s) every month Bevacizumab (Avastin) 25 mg/mL Solution Active 25 MG INTRAVIT EVERY MONTH August 02, 2020 11:00pm RIGHT EYE INJECTION Q MONTH calcium citrate 950 mg / cholecalciferol 250 unt oral tablet (12 sources) Vitamin D Start: 06-28-2017 Calcium Citrate-Vitamin D3 (Citracal-Vit D3 200 Mg-250 Tab) 1 EACH tablet Active 1 EACH PO TWICE A DAY June 27, 2017 11:00pm cholecalciferol 1.25 mg oral capsule (19 sources) Vitamin D Start: 05-25-2022 take 1 capsule by mouth every week Cholecalciferol (Vitamin D3) 1,250 mcg (50,000 unit) capsule Active 1250 ug PO EVERY WEEK May 25, 2022 12:00am 1 ml denosumab 60 mg/ml prefilled syringe (20 sources) RANK Ligand Inhibitor Start: 05-25-2022 Denosumab (Prolia) 60 mg/mL syringe Active 60 mg SC every 6 months May 25, 2022 9:32am Start: 06-17-2021 Denosumab (Pro rosalia) 60 mg/mL syringe Active 60 MG SC every 6 months June 16, 2021 11:00pm PROLIA 60 MG/ML SOLN yearly DENOSUMAB [id number] Bel Kaiser RN RN PROLIA 60 MG/ML SOLN yearly DENOSUMAB [id number] Bel Kaiser RN RN docusate sodium 50 mg / sennosides, longterm 8.6 mg oral tablet (2 sources) Start: 01-25-2022 take 1 tablet by mouth twice daily Sennosides-Docusate Sodium (Stool Softener-Stimulant Laxat) 8.6-50 mg Tablet Active 1 TABLET PO TWICE A DAY January 25, 2022 12:00am ergocalciferol 1.25 mg oral capsule (20 sources) Provitamin D2 Compound Start: 06-28-2017 Ergocalciferol (Vitamin D2) (Vitamin D2) 50,000 UNIT capsule Active 68408 U PO SA June 28, 2017 12:00am EVERY OTHER WEEK ON SUNDAY Start: 06-28-2017 take 1 capsule by mouth once E rgocalciferol (Vitamin D2) (Vitamin D) 50,000 UNIT capsule Active 97403 UNIT PO SA June 27, 2017 11:00pm Start: 01-07-2014 VITAMIN D (ERG OCALCIFEROL) 36794 UNIT CAPS 1 tablet every 2 weeks ERGOCALCIFEROL [id number] Catia Ferrera Start: 01-07-2014 VITAMIN D (ERG OCALCIFEROL) 74172 UNIT CAPS 1 tablet every 2 weeks MARISAOCALCIFEROL [id number] Catia Ferrera Start: 11-04-2012 End: 12-10-2012 Ergocalciferol (Vitamin D2) (Vitamin D) 50,000 UNIT capsule Discontinued 06475 U PO Q7D November 04, 2012 12:00am December 10, 2012 4:55pm ivig fusion (11 sources) Start: 06-07-2021 ivig fusion Ac tive IV June 07, 2021 2:31pm Start: 06-07-2021 take 90 mg intravenously every week ivig fusion Active 90 MG IV EVERY WEEK June 06, 2021 11:00pm every 8 weeks Start: 06-07-2021 ivig fusion Ac tive IV June 06, 2021 11:00pm Start: 06-07-2021 ivig fusion Ac tive IV June 07, 2021 12:00am leucovorin 15 mg oral tablet (20 sources) Folate Analog Start: 05-25-2022 take 1 tablet by mouth once daily Leucovorin Calcium 15 mg tablet Active 15 mg PO DAILY May 25, 2022 12:00am Start: 06-28-2017 take 5 mg by mouth every week Leucovorin Calcium Active 5 MG PO EVERY WEEK June 27, 2017 11:00pm Start: 01-07-2014 LEUCOVORIN LUPIS CIUM 5 MG TABS 1 tab the morning after taking methotrexate LEUCOVORIN CALCIUM [id number] Catia Ferrera take 1 tablet by brandy th once daily LEUCOVORIN CALCIUM 15 MG TABS One tablet by mouth daily LEUCOVORIN CALCIUM [id number] Bel Kaiser RN RN lutein 20 mg oral tablet (20 sources) Start: 05-25-2022 take 2 tablets by mouth once daily Lutein 20 mg tablet Active 40 mg PO DAILY May 25, 2022 12:00am give with meal/snack Start: 05-25-2022 take 40 mg by mouth once daily Lutein Active 40 MG PO DAILY May 25, 2022 12:00am give with meal/snack Start: 06-07-2021 End: 01-03-2022 take 1 capsule by mouth once daily at mealtime Lutein 40 mg capsule Discontinued 40 mg PO DAILY June 07, 2021 12:00am January 03, 2022 4:28pm administer with meals methotrexate 2.5 mg oral tablet (20 sources) Folate Analog Metabolic Inhibitor Start: 01-02-2022 Methotrexate Sodium 2.5 mg tablet Active 15 mg PO EVERY WEEK January 02, 2022 1:00am Pt takes on Start: 01-02-2022 take 15 mg by mouth every week Methotrexate Sodium Active 15 MG PO EVERY WEEK January 02, 2022 1:00am Pt takes on Start: 01-07-2014 METHOTREXATE 2 .5 MG TABS 8 tabs once a week METHOTREXATE SODIUM [id number] Catia Ferrera Start: 04-10-2013 take 20 mg by mouth every week Methotrexate Sodium Active 20 MG PO Q7D April 10, 2013 12:00am metoprolol tartrate 25 mg oral tablet (20 sources) beta-Adrenergic Angeline Start: 03-23-2022 take 10 mg by mouth twice daily Metoprolol Tartrate Active 10 MG PO TWICE A DAY March 23, 2022 10:19am Start: 01-25-2022 End: 03-23-2022 Metoprolol Tartrate 25 mg ta blet Active 12.5 mg PO TWICE A DAY March 23, 2022 10:19am Start: 01-25-2022 End: 03-23-2022 take 12.5 mg by mouth twice daily Metoprolol Tartrate Discontinued 12.5 MG PO TWICE A DAY January 25, 2022 1:00am March 23, 2022 10:19am Start: 01-07-2014 End: 03-05-2014 take 1 tablet by mouth once daily METOPROLOL TARTRATE 25 MG TABS One tablet by mouth daily METOPROLOL TARTRATE [id number] Catia Christian DO omeprazole 10 mg delayed release oral capsule (20 sources) Proton Pump Inhibitor Start: 05-25-2022 take 1 capsule by mouth once daily Omeprazole 10 mg capsule,delayed release(DR/EC) Active 10 mg PO DAILY May 25, 2022 12:00am Start: 06-07-2021 End: 01-03-2022 take 1 capsule by mouth once daily Omeprazole 10 mg capsule,delayed release(DR/EC) Discontinued 10 mg PO DAILY June 07, 2021 12:00am January 03, 2022 4:27pm Start: 01-07-2014 take 1 tablet by brandy th once daily OMEPRAZOLE 20 MG TBEC One tablet by mouth daily OMEPRAZOLE [id number] Catia Ferrera Start: 11-04-2012 Omeprazole (Pr ilosec) 40 MG capsule Active 20 MG PO DAILY November 04, 2012 5:26pm pantoprazole 20 mg delayed release oral tablet (20 sources) Proton Pump Inhibitor Start: 01-03-2022 End: 01-03-2022 take 1 tablet by mouth once daily Pantoprazole 20 mg tablet,delayed release (DR/EC) Active 20 mg PO DAILY January 03, 2022 7:19pm polyethylene glycol 3350 71375 mg powder for oral solution (2 sources) Osmotic Laxative Start: 01-25-2022 take 8.5 g by mouth once daily Polyethylene Glycol 3350 Active 8.5 GM PO DAILY 0 January 25, 2022 12:00am potassium chloride 10 meq extended release oral capsule (5 sources) Start: 11-05-2019 take 10 mEq by mouth four times daily Potassium Chloride Active 10 MEQ PO 4 TIMES DAILY November 05, 2019 8:34am predniSONE 2.5 mg oral tablet (20 sources) Start: 06-07-2021 Prednisone Act shannon 2.5 MG PO June 07, 2021 2:30pm Start: 01-07-2014 take 1 tablet by brandy th once daily PREDNISONE 10 MG TABS One tablet by mouth daily PREDNISONE [id number] Catia Ferrera Start: 01-07-2014 take 1 tablet by brandy th once daily PREDNISONE 5 MG TABS One tablet by mouth daily PREDNISONE [id number] Catia Ferrera Start: 01-08-2013 End: 06-27-2023 take 2.5 mg by mouth once daily Prednisone 10 MG table t Discontinued 2.5 mg PO DAILY January 08, 2013 1:00am June 27, 2023 8:30am Start: 01-08-2013 take 2.5 mg by mouth once alexandria y Prednisone Active 2.5 MG PO DAILY January 08, 2013 1:00am Start: 11-04-2012 End: 12-09-2012 Prednisone 50 MG tablet Disc ontinued 30 mg PO DAILY November 04, 2012 12:00am December 09, 2012 9:16am Start: 11-04-2012 End: 12-09-2012 take 30 mg by mouth once daily Prednisone Discontinued 30 MG PO DAILY November 04, 2012 12:00am December 09, 2012 9:16am Completed/Discontinued Medications Medication Drug Class(es) Dates Sig (Normalized) Sig (Original) HYDROCODONE-ACETAM INOPHEN (6 sources) Opioid Agonist Start: 06-01-2014 take 1 tablet by mouth at bedtime as needed for pain NORCO 5-325 MG TABS One tablet by mouth before bedtime as needed for pain HYDROCODONE-ACETAMI NOPHEN [id number] Catia Christian DO Start: 06-01-2014 End: 08-03-2016 take 1 tablet by mouth at bedtime as needed for pain NORCO 5-325 MG TABS One tablet by mouth before bedtime as needed for pain HYDROCODONE-ACETAMINOPHEN [id number] Bel Kaiser RN RN Start: 06-01-2014 End: 08-03-2016 take 1 tablet by mouth at bedtime as needed for pain NORCO 5-325 MG TABS One tablet by mouth before bedtime as needed for pain HYDROCODONE-ACETAMINOPHEN [id number] Bel Kaiser RN RN alendronic acid 70 mg oral tablet (6 sources) Bisphosphonate Start: 01-07-2014 End: 08-03-2016 FOSAMAX 70 MG TABS 1 tablet every sunday ALENDRONATE SODIUM [id number] Bel Kaiser RN RN MULTIPLE VITAMINS-MINERALS (2 sources) Vitamin C Start: 01-07-2014 take 1 tablet by mouth once daily PRESERVISION/LUTEIN CAPS One tablet by mouth daily MULTIPLE VITAMINS-MINERALS [id number] Catia B Maisha Start: 01-07-2014 End: 08-03-2016 take 1 tablet by mouth once daily PRESERVISION/LUTEIN CAPS One tablet by mouth daily MULTIPLE VITAMINS-MINERALS [id number] Bel Kaiser RN RN AZILSARTAN-CHLORTHALIDONE TABS (6 sources) Thiazide-like Diuretic, Angiotensin 2 Receptor Angeline Start: 01-07-2014 End: 03-05-2014 take 1 tablet by mouth once daily EDARBYCLOR TABS One tablet by mouth daily AZILSARTAN-CHLORTHALIDONE TABS [id number] Catia Christian DO Start: 01-07-2014 take 1 tablet by brandy th once daily EDARBYCLOR TABS One tablet by mouth alexandria y AZILSARTAN-CHLORTHALIDONE TABS [id number] Catia Ferrera calcitriol 0.65067 mg oral capsule (20 sources) Vitamin D3 Analog Start: 01-03-2022 End: 01-03-2022 take 2 ug by mouth once daily Calcitriol 0.25 mcg Capsule Discontinued 2 ug PO DAILY 0 January 03, 2022 1:00am January 03, 2022 7:19pm Start: 01-03-2022 End: 01-03-2022 take 2 ug by mouth once daily Calcitriol Discontinued 2 MCG PO DAILY 0 January 03, 2022 1:00am January 03, 2022 7:19pm Start: 01-02-2022 take 2 ug by mouth once daily Calcitriol Active 2 MCG PO DAILY January 02, 2022 12:00am Start: 06-07-2021 End: 06-17-2021 take 1 capsule by mouth twice daily Calcitriol 0.25 mcg capsule Discontinued 0.25 ug PO TWICE A DAY June 07, 2021 2:58pm June 17, 2021 10:42am Start: 08-12-2015 End: 06-07-2021 take 2 capsules by mouth every other day Calcitriol 0.25 MCG capsule Discontinued 0.5 ug PO EVERY OTHER DAY August 12, 2015 12:00am June 07, 2021 2:58pm Start: 08-12-2015 End: 06-07-2021 take 0.5 ug by mouth every other day Calcitriol Discontinued 0.5 MCG PO EVERY OTHER DAY August 12, 2015 12:00am June 07, 2021 2:58pm take 1 tablet by brandy th twice daily CALCITRIOL 0.25 MCG CAPS One tablet by mouth twice daily CALCITRIOL [id number] Bel Kaiser RN RN CALCIUM CITRATE-VITAMIN D TABS (2 sources) Start: 01-07-2014 take 1 tablet by mouth once daily CITRACAL/VITAMIN D TABS One tablet by mouth daily CALCIUM CITRATE-VITAMIN D TABS [id number] Catia B Harn CALCIUM CITRATE-VITAMIN D TABS (1 source) Start: 01-07-2014 take 1 tablet by mouth once daily CITRACAL/VITAMIN D TABS One tablet by mouth daily CALCIUM CITRATE-VITAMIN D TABS [id number] Catia B Harn captopril 25 mg oral tablet (20 sources) Angiotensin Converting Enzyme Inhibitor Start: 11-05-2012 End: 11-06-2012 take 25 mg by mouth at bedtime Captopril Discontinued 25 mg PO AT BEDTIME November 05, 2012 12:00am November 06, 2012 8:50am Start: 11-04-2012 End: 11-06-2012 take 50 mg by mouth once daily Capoten Discontinued 50 mg PO DAILY November 04, 2012 12:00am November 06, 2012 8:50am clopidogrel 75 mg oral tablet (20 sources) [id number] Platelet Inhibitor Start: 01-03-2022 End: 01-25-2022 take 1 tablet by mouth once daily Clopidogrel (Plavix) 75 mg tablet Discontinued 75 mg PO DAILY January 03, 2022 7:19pm January 25, 2022 9:13pm Corticotropin (20 sources) Adrenocorticotropic Hormone Start: 12-09-2012 End: 01-08-2013 Acthar Discontinued 40 SC December 09, 2012 9:22am January 08, 2013 8:57am Start: 12-09-2012 End: 01-08-2013 Acthar 1.5 U Ml Discontinued 40 SC December 09, 2012 1:00am January 08, 2013 8:57am Start: 12-09-2012 End: 01-08-2013 Acthar 1.5 U Ml Discontinued 40 SC December 09, 2012 12:00am January 08, 2013 7:57am Start: 12-09-2012 End: 01-08-2013 Acthar Discontinued 40 SC No [email or web address] 12:00am January 08, 2013 7:57am Start: 12-09-2012 End: 01-08-2013 Acthar Discontinued 40 SC No vember 2012 1:00am January 08, 2013 8:57am ezetimibe 10 mg oral tablet (6 sources) Dietary Cholesterol Absorption Inhibitor Start: 01-07-2014 End: 03-05-2014 take 1 tablet by mouth once daily ZETIA 10 MG TABS One tablet by mouth daily EZETIMIBE [id number] Catia Christian, folic acid 1 mg oral tablet (20 sources) Start: 01-02-2022 End: 01-11-2023 take 2 tablets by mouth once daily Folic Acid 1 mg Tablet Discontinued 2 mg PO DAILY January 02, 2022 1:00am January 11, 2023 9:30am Start: 01-02-2022 End: 01-11-2023 take 2 mg by mouth once daily Folic Acid Discontinued 2 MG PO DAILY January 02, 2022 1:00am January 11, 2023 9:30am Start: 06-28-2017 take 1 mg by mouth t wice daily at mealtime Folic Acid Active 1 MG PO TWICE DAILY WITH MEALS June 27, 2017 11:00pm Start: 01-07-2014 take 2 tablets by mo [facility] once daily FOLIC ACID 1 MG TABS Two tablets by mouth daily. FOLIC ACID [id number] Catia Ferrera Start: 11-04-2012 End: 12-10-2012 take 2 tablets by mouth once daily Folic Acid 1 MG tablet Discontinued 2 mg PO DAILY@799November 04, 2012 12:00am December 10, 2012 4:54pm Start: 11-04-2012 End: 12-10-2012 take 2 mg by mouth once daily Folic Acid Discontinued 2 MG PO DAILY@799November 04, 2012 12:00am December 10, 2012 4:54pm hydroCHLOROthiazide 12.5 mg / valsartan 80 mg oral tablet (3 sources) Thiazide Diuretic, Angiotensin 2 Receptor Angeline Start: 01-12-2014 take 1 tablet by mouth once daily VALSARTAN-HYDROCHLOROTHIAZIDE 80-12.5 MG TABS 1 PO daily VALSARTAN-HYDROCHLOROTHIAZIDE [id number] Catia Christian DO INTRAVENOUS IMMUNOGLOBULIN (IVIG) 120MG (3 sources) INTRAVENOUS IMMU NOGLOBULIN (IVIG) 120MG IV infusion twice monthly INTRAVENOUS IMMUNOGLOBULIN (IVIG) 120MG Bel Kaiser RN RN levothyroxine sodium 0.1 mg oral tablet (20 sources) l-Thyroxine Start: 08-09-2022 End: 06-12-2023 take 1 tablet by mouth once daily Levothyroxine 100 mcg tablet Discontinued 100 ug PO DAILY August 09, 2022 1:05pm June 12, 2023 11:36am Start: 05-25-2022 End: 08-09-2022 take 0.88 ug by mouth once daily Levothyroxine 100 mcg tablet Discontinued 0.88 ug PO DAILY May 25, 2022 9:36am August 09, 2022 1:05pm Start: 05-25-2022 End: 08-09-2022 take 0.88 ug by mouth once daily Levothyroxine Discontinued 0.88 MCG PO DAILY May 25, 2022 9:36am August 09, 2022 1:05pm Start: 04-21-2022 End: 05-25-2022 take 1 tablet by mouth once daily Levothyroxine 100 mcg tablet Discontinued 100 ug PO DAILY April 21, 2022 12:00am May 25, 2022 9:40am Start: 06-28-2017 End: 05-25-2022 take 1 tablet by mouth once daily Levothyroxine 88 MCG tablet Discontinued 88 ug PO DAILY June 28, 2017 12:00am May 25, 2022 9:37am Start: 10-10-2016 take 1 tablet by brandy th once daily LEVOTHYROXINE SODIUM 88 MCG TABS One tablet by mouth daily LEVOTHYROXINE SODIUM [id number] Tessa Rutledge Start: 01-07-2014 End: 08-03-2016 take 1 tablet by mouth once daily LEVOTHYROXINE SODIUM 112 MCG TABS One tablet by mouth daily LEVOTHYROXINE SODIUM [id number] Catia Ferrera lidocaine 0.05 mg/mg medicated patch (8 sources) Antiarrhythmic, Amide Local Anesthetic Start: 04-06-2023 End: 06-27-2023 Lidocaine (Lidoderm) 5 % adhesive patch,medicated Discontinued 1 NMA TOPICAL DAILY April 06, 2023 1:00am June 27, 2023 8:29am leave on most painful area for up to 12 hrs melatonin 10 mg sublingual tablet (20 sources) Start: 01-25-2022 End: 06-27-2023 take 1 tablet by mouth at bedtime Melatonin 10 mg Tablet, Sublingual Discontinued 10 mg PO AT BEDTIME January 25, 2022 1:00am June 27, 2023 8:29am MULTIPLE VITAMINS-MINERAL S (4 sources) Start: 01-07-2014 take 1 tablet by mouth once daily PRESERVISION/LUTEIN CAPS One tablet by mouth daily MULTIPLE VITAMINS-MINERALS [id number] Catia Ferrera Start: 01-07-2014 End: 08-03-2016 take 1 tablet by mouth once daily PRESERVISION/LUTEIN CAPS One tablet by mouth daily MULTIPLE VITAMINS-MINERALS [id number] Bel Kaiser RN RN oxyCODONE hydrochloride 5 mg oral tablet (20 sources) Opioid Agonist Start: 03-12-2019 End: 03-15-2019 take 1 tablet by mouth every six hours as needed for pain Oxycodone 5 MG tablet Discontinued 5 mg PO EVERY 6 HOURS NEEDED as needed for Pain 01 07March 12, 2019 March 14, 2019 1:00am March 15, 2019 1:09am pravastatin sodium 40 mg oral tablet (20 sources) HMG-CoA Reductase Inhibitor Start: 05-25-2022 End: 06-27-2023 take 1 tablet by mouth once daily Pravastatin 40 mg tablet Discontinued 40 mg PO DAILY May 25, 2022 12:00am June 27, 2023 8:30am Start: 06-07-2021 Pravastatin (P ravachol) 40 mg tablet Active 20 MG PO DAILY June 07, 2021 1:29pm Start: 11-06-2012 End: 01-03-2022 take 1 tablet by mouth at bedtime Pravastatin (Pravachol) 40 mg tablet Discontinued 40 mg PO AT BEDTIME June 07, 2021 2:29pm January 03, 2022 4:27pm Start: 11-06-2012 End: 06-07-2021 Pravastatin (Pravachol) 40 M G tablet Discontinued 1 {tbl} PO DAILY November 06, 2012 12:00am June 07, 2021 2:30pm Problems Active Problems Problem Classification Problem Date Documented Date Episodic/Chronic Acute cerebrovascular disease (20 sources) Cerebrovascular accident; Translations: [Cerebral infarction, unspecified] Chronic Disorders of lipid metabolism (20 sources) Hyperlipidemia; Translations: [Hyperlipidemia, unspecified] 01-07-2014 Chronic Esophageal disorders (20 sources) Gastroesophageal reflux disease; Translations: [Gastro-esophageal reflux disease without esophagitis] Chronic Essential hypertension (20 sources) Hypertensive disorder; Translations: [Benign hypertension] 01-07-2014 Chronic Fluid and electrolyte disorders (20 sources) Hypokalemia; Translations: [Hypokalemia] Episodic Fracture of upper limb (20 sources) Closed fracture of upper end of humerus; Translations: [Unspecified fracture of upper end of right humerus, initial encounter for closed fracture] 03-13-2019 Episodic Malaise and fatigue (20 sources) Asthenia; Translations: [Other malaise] Episodic Nutritional deficiencies (20 sources) Vitamin D deficiency; Translations: [Vitamin D deficiency, unspecified] Chronic Occlusion or stenosis of precerebral arteries (20 sources) Internal carotid artery stenosis; Translations: [Occlusion and stenosis of right carotid artery] Chronic Osteoarthritis (3 sources) Osteoarthritis of knee; Translations: [Osteoarthritis of knee, unspecified] Onset: 01-12-2014 01-12-2014 Chronic Osteoporosis (20 sources) Osteoporosis; Translations: [Age-related osteoporosis without current pathological fracture] Onset: 04-21-2024 01-07-2014 Chronic Other connective tissue disease (20 sources) Neurological symptom; Translations: [Unspecified symptoms and signs involving the nervous system] 01-04-2022 Episodic Other connective tissue disease (1 source) Unspecified symptoms and signs involving the nervous system; Translations: [Other symptoms involving nervous and musculoskeletal systems] Episodic Other endocrine disorders (20 sources) Hyperparathyroidism; Translations: [Hyperparathyroidism, unspecified] 02-07-2022 Chronic Other endocrine disorders (8 sources) Hyperparathyroidism, unspecified; Translations: [Hyperparathyroidism, unspecified] Chronic Other fractures (8 sources) Fracture of left rib; Translations: [Fracture of one rib, left side, initial encounter for closed fracture] 04-06-2023 Episodic Other injuries and conditions due to external causes (8 sources) Closed injury of head; Translations: [Unspecified injury of head, initial encounter] 04-06-2023 Episodic Other screening for suspected conditions (not mental disorders or infectious disease) (20 sources) Mammography abnormal; Translations: [Other abnormal and inconclusive findings on diagnostic imaging of breast] 03-12-2019 Episodic Other skin disorders (20 sources) H/O: musculoskeletal disease; Translations: [Personal history of diseases of the skin and subcutaneous tissue] 03-06-2013 Episodic Systemic lupus erythematosus and connective tissue disorders (4 sources) Dermatomyositis; 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, unspecified with myopathy] Onset: 01-12-2014 01-12-2014 Chronic Thyroid disorders (20 sources) Hypothyroidism; Translations: [Hypothyroidism, unspecified] 01-12-2014 Chronic [...] Results Test Name Value Interpretation Reference Range Facility Absolute lymphocyte countOrd ered By: Natalie Rodriguez on 06-12-2024 Lymphocytes Auto (Unsp spec) [#/Vol] 1.45 10*3/uL 0.83-4.51 [facility] Absolute neutrophil countOrd ered By: Natalie Rodriguez on 06-12-2024 Neutrophils (Bld) [#/Vol] 4.5 10*3/uL 2.0-7.7 [facility] Anion gap in Serum or Plasma Ordered By: Natalie Rodriguez on 06-12-2024 Anion gap [Moles/Vol] 12 mmol/L 5-15 [facility] Automated lymphocyte count a s percentage of total leukocytesOrdered By: Natalie Rodriguez on 06-12-2024 Lymphocytes/100 WBC Auto (Unsp spec) 21.6 % - [facility] BUN/creatinine ratioOrdered By: Natalieelizabeth Rodriguez on 06-12-2024 Urea nitrogen/Creatinine [Mass ratio] 15.2 mg/mg 10-20 [facility] Basophil percentageOrdered B y: Natalie Rodriguez on 06-12-2024 Basophils/100 WBC (Bld) 1.3 % High 0-1 [facility] Bilirubin, totalOrdered By: Natalie Rodriguez on 06-12-2024 Bilirubin [Mass/Vol] 0.51 mg/dL 0.00-1.30 [facility] CBC W/Diff, Automatedon Absolute Lymph 1.45 X10 3/uL Normal 0.83-4.51 [facility] Comment on above: Performed By: #### L 500.4050, L100.0100, L3100.7000, [id number] #### [facility] [address] [place], [address] Absolute Neut 4.5 X10 3/uL Normal 2.0-7.7 [facility] Comment on above: Performed By: #### L 500.4050, L100.0100, L3100.7000, [id number] #### [facility] [address] [place], [address] Basophils/100 WBC (Bld) 1.3 % High 0-1 [facility] Comment on above: Performed By: #### L 500.4050, L100.0100, L3100.7000, [id number] #### [facility] [address] [place], [address] Eosinophils/100 WBC (Bld) 1.0 % Normal 0-5 [facility] Comment on above: Performed By: #### L 500.4050, L100.0100, L3100.7000, [id number] #### [facility] [address] [place], [address] Erythrocyte distribution width (RBC) [Ratio] 13.5 % Normal 11.6-14.6 [facility] Comment on above: Performed By: #### L 500.4050, L100.0100, L3100.7000, [id number] #### [facility] [address] [place], [address] Hematocrit (Bld) [Volume fraction] 41.9 % Normal 37-47 [facility] Comment on above: Performed By: #### L 500.4050, L100.0100, L3100.7000, [id number] #### [facility] [address] [place], [address] Hemoglobin (Bld) [Mass/Vol] 14.4 g/dL Normal 12.0-15.0 [facility] Comment on above: Performed By: #### L 500.4050, L100.0100, L3100.7000, [id number] #### [facility] [address] [place], [address] IG% 0.400 Normal 0.0-0.9 [facility] Comment on above: Result Comment: IG% - Immature Granulocytes (promyelocytes, myelocytes and metamyelocytes) > 1% indicates that a LEFT SHIFT is Present. Performed By: #### L 500.4050, L100.0100, L3100.7000, [id number] #### [facility] [address] [place], [address] Lymphocytes/100 WBC (Bld) 21.6 % Normal 19-41 [facility] Comment on above: Performed By: #### L 500.4050, L100.0100, L3100.7000, [id number] #### [facility] [address] [place], [address] MCH (RBC) [Entitic mass] 31.6 pg Normal 27.0-32.0 [facility] Comment on above: Performed By: #### L 500.4050, L100.0100, L3100.7000, [id number] #### [facility] [address] [place], [address] MCHC (RBC) [Mass/Vol] 34.4 g/dL Normal 32-36 [facility] Comment on above: Performed By: #### L 500.4050, L100.0100, L3100.7000, [id number] #### [facility] [address] [place], [address] MCV (RBC) [Entitic vol] 91.9 fL Normal 81-99 [facility] Comment on above: Performed By: #### L 500.4050, L100.0100, L3100.7000, [id number] #### [facility] [address] [place], [address] Monocytes/100 WBC (Bld) 8.5 % Normal 0-10 [facility] Comment on above: Performed By: #### L 500.4050, L100.0100, L3100.7000, [id number] #### [facility] [address] [place], [address] Neutrophils/100 WBC (Bld) 67.2 % Normal 47-70 [facility] Comment on above: Performed By: #### L 500.4050, L100.0100, L3100.7000, [id number] #### [facility] [address] [place], [address] Nucleated RBC (Bld) [#/Vol] 0 10*3/uL Normal 0-5 [facility] Comment on above: Performed By: #### L 500.4050, L100.0100, L3100.7000, [id number] #### [facility] [address] [place], [address] Platelet mean volume (Bld) [Entitic vol] 9.7 fL Normal 6.2-12.0 [facility] Comment on above: Performed By: #### L 500.4050, L100.0100, L3100.7000, [id number] #### [facility] [address] [place], [address] Platelets (Bld) [#/Vol] 318 10*3/uL Normal 150-450 [facility] Comment on above: Performed By: #### L 500.4050, L100.0100, L3100.7000, [id number] #### [facility] [address] [place], [address] RBC (Bld) [#/Vol] 4.56 10*6/uL Normal 4.2-5.4 [facility] Comment on above: Performed By: #### L 500.4050, L100.0100, L3100.7000, [id number] #### [facility] [address] [place], [address] RDW SD 44.8 fl High 35.1-43.9 [facility] Comment on above: Performed By: #### L 500.4050, L100.0100, L3100.7000, [id number] #### [facility] [address] [place], [address] WBC (Bld) [#/Vol] 6.7 10*3/uL Normal 4.4-11.0 [facility] Comment on above: Performed By: #### L 500.4050, L100.0100, L3100.7000, [id number] #### [facility] [address] [place], [address] CPK Total, Creatine Kinaseon 06-12-2024 CPK TOTAL 32 U/L Normal 24-195 [facility] Comment on above: Performed By: #### L 500.4050, L100.0100, L3100.7000, [id number] #### [facility] [address] [place], [address] Carbon dioxide, total [Moles /volume] in Central venous bloodOrdered By: Natalie Rordiguez on 06-12-2024 CO2 [Moles/Vol] 21.9 mmol/L 21.0-32.0 [facility] Chloride assayOrdered By: Wilfrido Rodriguez on 06-12-2024 Chloride [Moles/Vol] 103 mmol/L 98-108 [facility] Comprehensive Metabolic Prof ilon 06-12-2024 Albumin [Mass/Vol] 4.0 g/dL Normal 3.4-4.8 [facility] Comment on above: Performed By: #### L 500.4050, L100.0100, L3100.7000, [id number] #### [facility] [address] [place], [address] Albumin/Globulin [Mass ratio] 1.0 {ratio} Normal 0.9-2.4 [facility] Comment on above: Performed By: #### L 500.4050, L100.0100, L3100.7000, [id number] #### [facility] [address] [place], [address] ALK PHOS 64 U/L Normal 35-104 [facility] Comment on above: Performed By: #### L 500.4050, L100.0100, L3100.7000, [id number] #### [facility] [address] [place], [address] ALT [Catalytic activity/Vol] 36 U/L High <=34 [facility] Comment on above: Performed By: #### L 500.4050, L100.0100, L3100.7000, [id number] #### [facility] [address] [place], [address] AST [Catalytic activity/Vol] 29 U/L Normal <=31 [facility] Comment on above: Performed By: #### L 500.4050, L100.0100, L3100.7000, [id number] #### [facility] [address] [place], [address] Bilirubin [Mass/Vol] 0.51 mg/dL Normal 0.00-1.30 [facility] Comment on above: Performed By: #### L 500.4050, L100.0100, L3100.7000, [id number] #### [facility] [address] [place], [address] BUN/CRE 15.2 RATIO Normal 10-20 [facility] Comment on above: Performed By: #### L 500.4050, L100.0100, L3100.7000, [id number] #### [facility] [address] [place], [address] Calcium [Mass/Vol] 9.7 mg/dL Normal 7.6-11.0 [facility] Comment on above: Performed By: #### L 500.4050, L100.0100, L3100.7000, [id number] #### [facility] [address] [place], [address] Chloride [Moles/Vol] 103 mmol/L Normal 98-108 [facility] Comment on above: Performed By: #### L 500.4050, L100.0100, L3100.7000, [id number] #### [facility] [address] [place], [address] CO2 [Moles/Vol] 21.9 mmol/L Normal 21.0-32.0 [facility] Comment on above: Performed By: #### L 500.4050, L100.0100, L3100.7000, [id number] #### [facility] [address] [place], [address] Creatinine [Mass/Vol] 0.59 mg/dL Low 0.70-1.20 [facility] Comment on above: Performed By: #### L 500.4050, L100.0100, L3100.7000, [id number] #### [facility] [address] [place], [address] GAP 12 Normal 5-15 [facility] Comment on above: Performed By: #### L 500.4050, L100.0100, L3100.7000, [id number] #### [facility] [address] [place], [address] GFR/1.73 sq M.predicted among non-blacks MDRD (S/P/Bld) [Vol rate/Area] 87 mL/min/{1.73_m2} Normal >60 [facility] Comment on above: Result Comment: mL/m in/1.73m2 CKD-EPI Creatinine Equation (2020) Performed By: #### L 500.4050, L100.0100, L3100.7000, [id number] #### [facility] [address] [place], [address] Globulin (S) [Mass/Vol] 4.1 g/dL Normal 2.2-4.2 [facility] Comment on above: Performed By: #### L 500.4050, L100.0100, L3100.7000, [id number] #### [facility] [address] [place], [address] Glucose [Mass/Vol] 176 mg/dL High 70-99 [facility] Comment on above: Performed By: #### L 500.4050, L100.0100, L3100.7000, [id number] #### [facility] [address] [place], [address] Potassium [Moles/Vol] 3.9 mmol/L Normal 3.3-5.1 [facility] Comment on above: Performed By: #### L 500.4050, L100.0100, L3100.7000, [id number] #### [facility] [address] [place], [address] Sodium [Moles/Vol] 136 mmol/L Normal 133-145 [facility] Comment on above: Performed By: #### L 500.4050, L100.0100, L3100.7000, [id number] #### [facility] [address] [place], [address] T PROT 8.1 g/dL Normal 5.9-8.4 [facility] Comment on above: Performed By: #### L 500.4050, L100.0100, L3100.7000, [id number] #### [facility] [address] [place], [address] Urea nitrogen [Mass/Vol] 9 mg/dL Normal 4-19 [facility] Comment on above: Performed By: #### L 500.4050, L100.0100, L3100.7000, [id number] #### [facility] [address] [place], [address] Eosinophil percentageOrdered By: Natalie Rodriguez on 06-12-2024 Eosinophils/100 WBC (Bld) 1.0 % 0-5 [facility] Erythrocyte distribution wid th ratioOrdered By: Natalie Rodriguez on 06-12-2024 Erythrocyte distribution width (RBC) [Ratio] 13.5 % 11.6-14.6 [facility] Erythrocyte distribution wid th standard deviationOrdered By: Natalie Rodriguez on 06-12-2024 Erythrocyte distribution width (RBC) [Ratio] 44.8 fl High 35.1-43.9 [facility] Glomerular filtration rate ( GFR) estimation/1.73 sq m using serum, plasma, or whole bOrdered By: Natalie Rodriguez on 06-12-2024 GFR/1.73 sq M.predicted among non-blacks MDRD (S/P/Bld) [Vol rate/Area] 87 mL/min/{1.73_m2} >60 [facility] Comment on above: mL/min/1.73m2 CKD-EP I Creatinine Equation (2020) Hematocrit Auto (Bld) [Volum e fraction]Ordered By: Natalie Rodriguez on 06-12-2024 Hematocrit (Bld) [Volume fraction] 41.9 % 37-47 [facility] Hemoglobin measurementOrdere d By: Natalie Rodriguez on 06-12-2024 Hemoglobin (Bld) [Mass/Vol] 14.4 g/dL 12.0-15.0 [facility] Immature granulocytes/100 WB C Auto (Bld)Ordered By: Natalie Rodriguez on 06-12-2024 Immature granulocytes/100 WBC (Bld) 0.400 % 0.0-0.9 [facility] Comment on above: IG% - Immature Granu locytes (promyelocytes, myelocytes and metamyelocytes) > 1% indicates that a LEFT SHIFT is Present. Laboratory - Chemistry and C hemistry - challengeOrdered By: Natalie Rodriguez on 06-12-2024 AST [Catalytic activity/Vol] 29 U/L <32 [facility] MCV (mean corpuscular volume ) determinationOrdered By: Natalie Rodriguez on 06-12-2024 MCV (RBC) [Entitic vol] 91.9 fL 81-99 [facility] Mean corpuscular hemoglobin (MCH) determinationOrdered By: Natalie Rodriguez on 06-12-2024 MCH (RBC) [Entitic mass] 31.6 pg 27.0-32.0 [facility] Mean corpuscular hemoglobin concentration (MCHC) determinationOrdered By: Natalie Rodriguez on 06-12-2024 MCHC (RBC) [Mass/Vol] 34.4 g/dL 32-36 [facility] Mean platelet volume determi nationOrdered By: Natalie Rodriguez on 06-12-2024 Platelet mean volume (Bld) [Entitic vol] 9.7 fL 6.2-12.0 [facility] Monocyte percentageOrdered B y: Natalie Rodriguez on 06-12-2024 Monocytes/100 WBC (Bld) 8.5 % 0-10 [facility] Neutrophil percentageOrdered By: Natalie Rodriguez on 06-12-2024 Neutrophils/100 WBC (Bld) 67.2 % 47-70 [facility] Nucleated red blood cell per centageOrdered By: Natalie Rodriguez on 06-12-2024 Nucleated RBC/100 WBC (Bld) [Ratio] 0 % 0-5 [facility] Platelet countOrdered By: Wilfrido Rodriguez on 06-12-2024 Platelets (Bld) [#/Vol] 318 10*3/uL 150-450 [facility] Potassium measurement (mass/ volume)Ordered By: Natalie Rodriguez on 06-12-2024 Potassium (Unsp spec) [Mass/Vol] 3.9 mmol/L 3.3-5.1 [facility] RBC Auto (Bld) [#/Vol]Ordere d By: Natalie Rodriguez on 06-12-2024 RBC (Bld) [#/Vol] 4.56 10*6/uL 4.2-5.4 [facility] Serum creatinine measurement (mass/volume)Ordered By: Natalie Rodriguez on 06-12-2024 Creatinine [Mass/Vol] 0.59 mg/dL Low 0.70-1.20 [facility] Serum globulin measurementOr dered By: Natalie Rodriguez on 06-12-2024 Globulin (S) [Mass/Vol] 4.1 g/dL 2.2-4.2 [facility] Serum glucose measurement (m ass/volume)Ordered By: Natalie Rodriguez on 06-12-2024 Glucose [Mass/Vol] 176 mg/dL High 70-99 [facility] Serum or plasma alanine myers otransferase (ALT) measurementOrdered By: Natalie Rodriguez on 06-12-2024 ALT [Catalytic activity/Vol] 36 U/L High <35 [facility] Serum or plasma albumin nancy urement (mass/volume)Ordered By: Natalie Rodriguez on 06-12-2024 Albumin [Mass/Vol] 4.0 g/dL 3.4-4.8 [facility] Serum or plasma albumin/glob ulin mass ratioOrdered By: Natalie Rodriguez on 06-12-2024 Albumin/Globulin [Mass ratio] 1.0 {ratio} 0.9-2.4 [facility] Serum or plasma alkaline lindsey sphatase measurementOrdered By: Natalie Rodriguez on 06-12-2024 ALP [Catalytic activity/Vol] 64 U/L 35-104 [facility] Serum or plasma calcium nancy urement (mass/volume)Ordered By: Natalie Rodriguez on 06-12-2024 Calcium [Mass/Vol] 9.7 mg/dL 7.6-11.0 [facility] Serum or plasma creatine kin ase activityOrdered By: Natalie Rodriguez on 06-12-2024 CK [Catalytic activity/Vol] 32 U/L 24-195 [facility] Serum or plasma urea nitroge n measurement (mass/volume)Ordered By: Natalie Rodriguez on 06-12-2024 Urea nitrogen [Mass/Vol] 9 mg/dL 4-19 [facility] Sodium levelOrdered By: Shawna Rodriguez on 06-12-2024 Sodium [Moles/Vol] 136 mmol/L 133-145 [facility] Total proteinOrdered By: Layne Rodriguez on 06-12-2024 Protein [Mass/Vol] 8.1 g/dL 5.9-8.4 [facility] White blood cell (WBC) count Ordered By: Natalie Rodriguez on 06-12-2024 WBC (Bld) [#/Vol] 6.7 10*3/uL 4.4-11.0 [facility] Absolute lymphocyte countOrd ered By: Catia Christian on 04-22-2024 Lymphocytes Auto (Unsp spec) [#/Vol] 1.19 10*3/uL 0.83-4.51 [facility] Absolute neutrophil countOrd ered By: Catia Christian on 04-22-2024 Neutrophils (Bld) [#/Vol] 4.2 10*3/uL 2.0-7.7 [facility] Anion gap in Serum or Plasma Ordered By: Catia Christian on 04-22-2024 Anion gap [Moles/Vol] 13 mmol/L 5-15 [facility] Automated lymphocyte count a s percentage of total leukocytesOrdered By: Catia Christian on 04-22-2024 Lymphocytes/100 WBC Auto (Unsp spec) 19.1 % 19- [facility] BUN/creatinine ratioOrdered By: Catia Christian on 04-22-2024 Urea nitrogen/Creatinine [Mass ratio] 14.5 mg/mg 10-20 [facility] Basophil percentageOrdered B y: Catia Christian on 04-22-2024 Basophils/100 WBC (Bld) 1.1 % High 0-1 [facility] Bilirubin, totalOrdered By: Catia Christian on 04-22-2024 Bilirubin [Mass/Vol] 0.52 mg/dL 0.00-1.30 [facility] CBC W/Diff, Automatedon 04-05 Absolute Lymph 1.19 X10 3/uL Normal 0.83-4.51 [facility] Comment on above: Performed By: #### L [id number], L506.0400, L501.3620, L500.4050, L100.0100, L501.9520 #### [facility] [address] [place], [address] Absolute Neut 4.2 X10 3/uL Normal 2.0-7.7 [facility] Comment on above: Performed By: #### L 501.57004, L506.0400, L501.3620, L500.4050, L100.0100, L501.9520 #### [facility] [address] [place], [address] Basophils/100 WBC (Bld) 1.1 % High 0-1 [facility] Comment on above: Performed By: #### L 501.02779, L506.0400, L501.3620, L500.4050, L100.0100, L501.9520 #### [facility] [address] [place], [address] Eosinophils/100 WBC (Bld) 0.8 % Normal 0-5 [facility] Comment on above: Performed By: #### L 501.75821, L506.0400, L501.3620, L500.4050, L100.0100, L501.9520 #### [facility] [address], [address] Erythrocyte distribution width (RBC) [Ratio] 14.4 % Normal 11.6-14.6 [facility] Comment on above: Performed By: #### L 501.63434, L506.0400, L501.3620, L500.4050, L100.0100, L501.9520 #### [facility] [address] [place], [address] Hematocrit (Bld) [Volume fraction] 41.3 % Normal 37-47 [facility] Comment on above: Performed By: #### L 501.38423, L506.0400, L501.3620, L500.4050, L100.0100, L501.9520 #### [facility] [address] [place], [address] Hemoglobin (Bld) [Mass/Vol] 14.4 g/dL Normal 12.0-15.0 [facility] Comment on above: Performed By: #### L 501.71814, L506.0400, L501.3620, L500.4050, L100.0100, L501.9520 #### [facility] [address] [place], [address] IG% 0.500 Normal 0.0-0.9 [facility] Comment on above: Result Comment: IG% - Immature Granulocytes (promyelocytes, myelocytes and metamyelocytes) > 1% indicates that a LEFT SHIFT is Present. Performed By: #### L 501.06005, L506.0400, L501.3620, L500.4050, L100.0100, L501.9520 #### [facility] [address] [place], [address] Lymphocytes/100 WBC (Bld) 19.1 % Normal 19-41 [facility] Comment on above: Performed By: #### L 501.41170, L506.0400, L501.3620, L500.4050, L100.0100, L501.9520 #### [facility] [address] [place], [address] MCH (RBC) [Entitic mass] 31.8 pg Normal 27.0-32.0 [facility] Comment on above: Performed By: #### L 501.93207, L506.0400, L501.3620, L500.4050, L100.0100, L501.9520 #### [facility] [address] [place], [address] MCHC (RBC) [Mass/Vol] 34.9 g/dL Normal 32-36 [facility] Comment on above: Performed By: #### L 501.03256, L506.0400, L501.3620, L500.4050, L100.0100, L501.9520 #### [facility] [address] [place], [address] MCV (RBC) [Entitic vol] 91.2 fL Normal 81-99 [facility] Comment on above: Performed By: #### L 501.34161, L506.0400, L501.3620, L500.4050, L100.0100, L501.9520 #### [facility] [address] [place], [address] Monocytes/100 WBC (Bld) 11.4 % High 0-10 [facility] Comment on above: Performed By: #### L 501.44176, L506.0400, L501.3620, L500.4050, L100.0100, L501.9520 #### [facility] [address] [place], [address] Neutrophils/100 WBC (Bld) 67.1 % Normal 47-70 [facility] Comment on above: Performed By: #### L 501.35453, L506.0400, L501.3620, L500.4050, L100.0100, L501.9520 #### [facility] [address] [place], [address] Nucleated RBC (Bld) [#/Vol] 0 10*3/uL Normal 0-5 [facility] Comment on above: Performed By: #### L 501.97491, L506.0400, L501.3620, L500.4050, L100.0100, L501.9520 #### [facility] [address] [place], [address] Platelet mean volume (Bld) [Entitic vol] 9.9 fL Normal 6.2-12.0 [facility] Comment on above: Performed By: #### L 501.20880, L506.0400, L501.3620, L500.4050, L100.0100, L501.9520 #### [facility] [address] [place], [address] Platelets (Bld) [#/Vol] 322 10*3/uL Normal 150-450 [facility] Comment on above: Performed By: #### L 501.22754, L506.0400, L501.3620, L500.4050, L100.0100, L501.9520 #### [facility] [address] [place], [address] RBC (Bld) [#/Vol] 4.53 10*6/uL Normal 4.2-5.4 [facility] Comment on above: Performed By: #### L 501.10392, L506.0400, L501.3620, L500.4050, L100.0100, L501.9520 #### [facility] [address] [place], [address] RDW SD 47.0 fl High 35.1-43.9 [facility] Comment on above: Performed By: #### L 501.08504, L506.0400, L501.3620, L500.4050, L100.0100, L501.9520 #### [facility] [address] [place], [address] WBC (Bld) [#/Vol] 6.2 10*3/uL Normal 4.4-11.0 [facility] Comment on above: Performed By: #### L 501.42902, L506.0400, L501.3620, L500.4050, L100.0100, L501.9520 #### [facility] [address] [place], [address] CPK Total, Creatine Kinaseon 04-22-2024 CPK TOTAL 36 U/L Normal 24-195 [facility] Comment on above: Order Comment: DR REHAN NUÑEZ GETS RESULTS FOR CMP,CBCD,CPK AND GETS RESULTS FOR TSH,T4F,TF3 Performed By: #### L 501.00148, L506.0400, L501.3620, L500.4050, L100.0100, L501.9520 #### [facility] [address] [place], [address] Carbon dioxide, total [Moles /volume] in Central venous bloodOrdered By: Catia Christian on 04-22-2024 CO2 [Moles/Vol] 19.9 mmol/L Low 21.0-32.0 [facility] Chloride assayOrdered By: Rosalee Christian on 04-22-2024 Chloride [Moles/Vol] 103 mmol/L 98-108 [facility] Comprehensive Metabolic Prof ilon 04-22-2024 Albumin [Mass/Vol] 4.0 g/dL Normal 3.4-4.8 [facility] Comment on above: Order Comment: DR REHAN NUÑEZ GETS RESULTS FOR CMP,CBCD,CPK AND GETS RESULTS FOR TSH,T4F,TF3 Performed By: #### L 501.88601, L506.0400, L501.3620, L500.4050, L100.0100, L501.9520 #### [facility] [address] [place], [address] Albumin/Globulin [Mass ratio] 1.0 {ratio} Normal 0.9-2.4 [facility] Comment on above: Order Comment: DR REHAN NUÑEZ GETS RESULTS FOR CMP,CBCD,CPK AND GETS RESULTS FOR TSH,T4F,TF3 Performed By: #### L 501.86150, L506.0400, L501.3620, L500.4050, L100.0100, L501.9520 #### [facility] [address] [place], [address] ALK PHOS 81 U/L Normal 35-104 [facility] Comment on above: Order Comment: DR REHAN NUÑEZ GETS RESULTS FOR CMP,CBCD,CPK AND GETS RESULTS FOR TSH,T4F,TF3 Performed By: #### L 501.85550, L506.0400, L501.3620, L500.4050, L100.0100, L501.9520 #### [facility] [address] [place], [address] ALT [Catalytic activity/Vol] 36 U/L High <=34 [facility] Comment on above: Order Comment: DR REHAN NUÑEZ GETS RESULTS FOR CMP,CBCD,CPK AND GETS RESULTS FOR TSH,T4F,TF3 Performed By: #### L 501.39298, L506.0400, L501.3620, L500.4050, L100.0100, L501.9520 #### [facility] [address] [place], [address] AST [Catalytic activity/Vol] 30 U/L Normal <=31 [facility] Comment on above: Order Comment: DR REHAN NUÑEZ GETS RESULTS FOR CMP,CBCD,CPK AND GETS RESULTS FOR TSH,T4F,TF3 Performed By: #### L 501.90859, L506.0400, L501.3620, L500.4050, L100.0100, L501.9520 #### [facility] [address] [place], [address] Bilirubin [Mass/Vol] 0.52 mg/dL Normal 0.00-1.30 [facility] Comment on above: Order Comment: DR REHAN NUÑEZ GETS RESULTS FOR CMP,CBCD,CPK AND GETS RESULTS FOR TSH,T4F,TF3 Performed By: #### L 501.86431, L506.0400, L501.3620, L500.4050, L100.0100, L501.9520 #### [facility] [address] [place], [address] BUN/CRE 14.5 RATIO Normal 10-20 [facility] Comment on above: Order Comment: DR REHAN NUÑEZ GETS RESULTS FOR CMP,CBCD,CPK AND GETS RESULTS FOR TSH,T4F,TF3 Performed By: #### L 501.96592, L506.0400, L501.3620, L500.4050, L100.0100, L501.9520 #### [facility] [address] [place], [address] Calcium [Mass/Vol] 9.3 mg/dL Normal 7.6-11.0 [facility] Comment on above: Order Comment: DR REHAN NUÑEZ GETS RESULTS FOR CMP,CBCD,CPK AND GETS RESULTS FOR TSH,T4F,TF3 Performed By: #### L 501.87877, L506.0400, L501.3620, L500.4050, L100.0100, L501.9520 #### [facility] [address] [place], [address] Chloride [Moles/Vol] 103 mmol/L Normal 98-108 [facility] Comment on above: Order Comment: DR REHAN NUÑEZ GETS RESULTS FOR CMP,CBCD,CPK AND GETS RESULTS FOR TSH,T4F,TF3 Performed By: #### L 501.59691, L506.0400, L501.3620, L500.4050, L100.0100, L501.9520 #### [facility] [address] [place], [address] CO2 [Moles/Vol] 19.9 mmol/L Low 21.0-32.0 [facility] Comment on above: Order Comment: DR REHAN NUÑEZ GETS RESULTS FOR CMP,CBCD,CPK AND GETS RESULTS FOR TSH,T4F,TF3 Performed By: #### L 501.67872, L506.0400, L501.3620, L500.4050, L100.0100, L501.9520 #### [facility] [address] [place], [address] Creatinine [Mass/Vol] 0.62 mg/dL Low 0.70-1.20 [facility] Comment on above: Order Comment: DR REHAN NUÑEZ GETS RESULTS FOR CMP,CBCD,CPK AND GETS RESULTS FOR TSH,T4F,TF3 Performed By: #### L 501.64606, L506.0400, L501.3620, L500.4050, L100.0100, L501.9520 #### [facility] [address] [place], [address] GAP 13 Normal 5-15 [facility] Comment on above: Order Comment: DR REHAN NUÑEZ GETS RESULTS FOR CMP,CBCD,CPK AND GETS RESULTS FOR TSH,T4F,TF3 Performed By: #### L 501.25123, L506.0400, L501.3620, L500.4050, L100.0100, L501.9520 #### [facility] [address] [place], [address] GFR/1.73 sq M.predicted among non-blacks MDRD (S/P/Bld) [Vol rate/Area] 86 mL/min/{1.73_m2} Normal >60 [facility] Comment on above: Order Comment: DR REHAN NUÑEZ GETS RESULTS FOR CMP,CBCD,CPK AND GETS RESULTS FOR TSH,T4F,TF3 Result Comment: mL/m in/1.73m2 CKD-EPI Creatinine Equation (2020) Performed By: #### L 501.42045, L506.0400, L501.3620, L500.4050, L100.0100, L501.9520 #### [facility] [address] [place], [address] Globulin (S) [Mass/Vol] 4.1 g/dL Normal 2.2-4.2 [facility] Comment on above: Order Comment: DR REHAN NUÑEZ GETS RESULTS FOR CMP,CBCD,CPK AND GETS RESULTS FOR TSH,T4F,TF3 Performed By: #### L 501.74894, L506.0400, L501.3620, L500.4050, L100.0100, L501.9520 #### [facility] [address] [place], [address] Glucose [Mass/Vol] 213 mg/dL High 70-99 [facility] Comment on above: Order Comment: DR REHAN NUÑEZ GETS RESULTS FOR CMP,CBCD,CPK AND GETS RESULTS FOR TSH,T4F,TF3 Performed By: #### L 501.89679, L506.0400, L501.3620, L500.4050, L100.0100, L501.9520 #### [facility] [address] [place], [address] Potassium [Moles/Vol] 3.6 mmol/L Normal 3.3-5.1 [facility] Comment on above: Order Comment: DR REHAN NUÑEZ GETS RESULTS FOR CMP,CBCD,CPK AND GETS RESULTS FOR TSH,T4F,TF3 Performed By: #### L 501.30829, L506.0400, L501.3620, L500.4050, L100.0100, L501.9520 #### [facility] [address] [place], [address] Sodium [Moles/Vol] 136 mmol/L Normal 133-145 [facility] Comment on above: Order Comment: DR REHAN NUÑEZ GETS RESULTS FOR CMP,CBCD,CPK AND GETS RESULTS FOR TSH,T4F,TF3 Performed By: #### L 501.19778, L506.0400, L501.3620, L500.4050, L100.0100, L501.9520 #### [facility] [address] [place], [address] T PROT 8.1 g/dL Normal 5.9-8.4 [facility] Comment on above: Order Comment: DR REHAN NUÑEZ GETS RESULTS FOR CMP,CBCD,CPK AND GETS RESULTS FOR TSH,T4F,TF3 Performed By: #### L 501.66168, L506.0400, L501.3620, L500.4050, L100.0100, L501.9520 #### [facility] [address] [place], [address] Urea nitrogen [Mass/Vol] 9 mg/dL Normal 4-19 [facility] Comment on above: Order Comment: DR REHAN NUÑEZ GETS RESULTS FOR CMP,CBCD,CPK AND GETS RESULTS FOR TSH,T4F,TF3 Performed By: #### L 501.90668, L506.0400, L501.3620, L500.4050, L100.0100, L501.9520 #### [facility] [address] [place], [place], [id number] Eosinophil percentageOrdered By: Catia Christian on 04-22-2024 Eosinophils/100 WBC (Bld) 0.8 % 0-5 [facility] Erythrocyte distribution wid th ratioOrdered By: Catia Christian on 04-22-2024 Erythrocyte distribution width (RBC) [Ratio] 14.4 % 11.6-14.6 [facility] Erythrocyte distribution wid th standard deviationOrdered By: Catia Christian on 04-22-2024 Erythrocyte distribution width (RBC) [Entitic vol] 47.0 fL High 35.1-43.9 [facility] Erythrocyte distribution width (RBC) [Ratio] 47.0 fl High 35.1-43.9 [facility] Free T3on 04-22-2024 Free T3 [Mass/Vol] 3.7 pg/mL Normal 2.18-3.98 [facility] Comment on above: Order Comment: DR REHAN NUÑEZ GETS RESULTS FOR CMP,CBCD,CPK AND GETS RESULTS FOR TSH,T4F,TF3 Performed By: #### L 501.05299, L506.0400, L501.3620, L500.4050, L100.0100, L501.9520 #### [facility] [address] [place], [place], [id number] Free [id number] By: Catia lowery on 04-22-2024 Free T3 [Mass/Vol] 3.7 pg/mL 2.18-3.98 [facility] Free Triiodothyronine (T3) pg/dL 3.7 pg/mL 2.18-3.98 [facility] GFR/1.73 sq M.predicted camila g non-blacks MDRD (S/P/Bld) [Vol rate/Area]Ordered By: Catia Christian on 04-22-2024 Estimated GFR (MDRD) Non-Af Amer 86 >60 [facility] Comment on above: mL/min/1.73m2 CKD-EP I Creatinine Equation (2020) Glomerular filtration rate ( GFR) estimation/1.73 sq m using serum, plasma, or whole bOrdered By: Catia Christian on 04-22-2024 GFR/1.73 sq M.predicted among non-blacks MDRD (S/P/Bld) [Vol rate/Area] 86 mL/min/{1.73_m2} >60 [facility] Comment on above: mL/min/1.73m2 CKD-EP I Creatinine Equation (2020) Hematocrit Auto (Bld) [Volum e fraction]Ordered By: Catia Christian on 04-22-2024 Hematocrit (Bld) [Volume fraction] 41.3 % 37-47 [facility] Hemoglobin measurementOrdere d By: Catia Christian on 04-22-2024 Hemoglobin (Bld) [Mass/Vol] 14.4 g/dL 12.0-15.0 [facility] Immature granulocytes/100 WB C Auto (Bld)Ordered By: Catia Christian on 04-22-2024 Immature granulocytes/100 WBC (Bld) 0.500 % 0.0-0.9 [facility] Comment on above: IG% - Immature Granu locytes (promyelocytes, myelocytes and metamyelocytes) > 1% indicates that a LEFT SHIFT is Present. Laboratory - Chemistry and C hemistry - challengeOrdered By: Catia Christian on 04-22-2024 AST [Catalytic activity/Vol] 30 U/L <32 [facility] Lymphocytes Auto (Unsp spec) [#/Vol]Ordered By: Catia Christian on 04-22-2024 Lymphocytes (Bld) [#/Vol] 1.19 10*3/uL 0.83-4.51 [facility] Lymphocytes/100 WBC Auto (Un sp spec)Ordered By: Catia Christian on 04-22-2024 Lymphocytes/100 WBC (Bld) 19.1 % 19-41 [facility] MCV (mean corpuscular volume ) determinationOrdered By: Catia Christian on 04-22-2024 MCV (RBC) [Entitic vol] 91.2 fL 81-99 [facility] Mean corpuscular hemoglobin (MCH) determinationOrdered By: Catia Christian on 04-22-2024 MCH (RBC) [Entitic mass] 31.8 pg 27.0-32.0 [facility] Mean corpuscular hemoglobin concentration (MCHC) determinationOrdered By: Catia Christian on 04-22-2024 MCHC (RBC) [Mass/Vol] 34.9 g/dL 32-36 [facility] Mean platelet volume determi nationOrdered By: Catia Christian on 04-22-2024 Platelet mean volume (Bld) [Entitic vol] 9.9 fL 6.2-12.0 [facility] Monocyte percentageOrdered B y: Catia Christian on 04-22-2024 Monocytes/100 WBC (Bld) 11.4 % High 0-10 [facility] Neutrophil percentageOrdered By: Catia Christian on 04-22-2024 Neutrophils/100 WBC (Bld) 67.1 % 47-70 [facility] Nucleated red blood cell per centageOrdered By: Catia Christian on 04-22-2024 Nucleated RBC/100 WBC (Bld) [Ratio] 0 % 0-5 [facility] Platelet countOrdered By: Rosalee Christian on 04-22-2024 Platelets (Bld) [#/Vol] 322 10*3/uL 150-450 [facility] Potassium (Unsp spec) [Mass/ Vol]Ordered By: Catia Christian on 04-22-2024 Potassium [Moles/Vol] 3.6 mmol/L 3.3-5.1 [facility] Potassium measurement (mass/ volume)Ordered By: Catia Christian on 04-22-2024 Potassium (Unsp spec) [Mass/Vol] 3.6 mmol/L 3.3-5.1 [facility] RBC Auto (Bld) [#/Vol]Ordere d By: Catia Christian on 04-22-2024 RBC (Bld) [#/Vol] 4.53 10*6/uL 4.2-5.4 [facility] Serum creatinine measurement (mass/volume)Ordered By: Catia Christian on 04-22-2024 Creatinine [Mass/Vol] 0.62 mg/dL Low 0.70-1.20 [facility] Serum globulin measurementOr dered By: Catia Christian on 04-22-2024 Globulin (S) [Mass/Vol] 4.1 g/dL 2.2-4.2 [facility] Serum glucose measurement (m ass/volume)Ordered By: Catia Christian on 04-22-2024 Glucose [Mass/Vol] 213 mg/dL High 70-99 [facility] Serum or plasma alanine myers otransferase (ALT) measurementOrdered By: Catia Christian on 04-22-2024 ALT [Catalytic activity/Vol] 36 U/L High <35 [facility] Serum or plasma albumin nancy urement (mass/volume)Ordered By: Catia Christian on 04-22-2024 Albumin [Mass/Vol] 4.0 g/dL 3.4-4.8 [facility] Serum or plasma albumin/glob ulin mass ratioOrdered By: Catia Christian on 04-22-2024 Albumin/Globulin [Mass ratio] 1.0 {ratio} 0.9-2.4 [facility] Serum or plasma alkaline lindsey sphatase measurementOrdered By: Catia Chritsian on 04-22-2024 ALP [Catalytic activity/Vol] 81 U/L 35-104 [facility] Serum or plasma calcium nancy urement (mass/volume)Ordered By: Catia Christian on 04-22-2024 Calcium [Mass/Vol] 9.3 mg/dL 7.6-11.0 [facility] Serum or plasma creatine kin ase activityOrdered By: Catia Christian on 04-22-2024 CK [Catalytic activity/Vol] 36 U/L 24-195 [facility] Serum or plasma urea nitroge n measurement (mass/volume)Ordered By: Catia Christian on 04-22-2024 Urea nitrogen [Mass/Vol] 9 mg/dL 4-19 [facility] Sodium levelOrdered By: Catia Christian on 04-22-2024 Sodium [Moles/Vol] 136 mmol/L 133-145 [facility] T4 Free Directon 04-22-2024 T4 FREE DIRECT 1.70 ng/dL High 0.76-1.46 [facility] Comment on above: Order Comment: DR REHAN NUÑEZ GETS RESULTS FOR CMP,CBCD,CPK AND GETS RESULTS FOR TSH,T4F,TF3 Performed By: #### L [id number], L506.0400, L501.3620, L500.4050, L100.0100, L501.9520 #### [facility] [address] [place], [address] T4 freeOrdered By: Catia lowery on 04-22-2024 Free T4 [Mass/Vol] 1.70 ng/dL High 0.76-1.46 [facility] TSH DL <= 0.005 mIU/L QnOrde red By: Catia Christian on 04-22-2024 Thyroid Stimulating Hormone (TSH) 0.162 uIU/mL Low 0.300-4.200 [facility] TSH Qn 0.162 uIU/mL Low 0.300-4.200 [facility] Thyroid Stim Hormone (TSH)on 04-22-2024 TSH 0.162 uIU/mL Low 0.300-4.200 [facility] Comment on above: Order Comment: DR REHAN NUÑEZ GETS RESULTS FOR CMP,CBCD,CPK AND GETS RESULTS FOR TSH,T4F,TF3 Performed By: #### L 501.18321, L506.0400, L501.3620, L500.4050, L100.0100, L501.9520 #### [facility] [address] [facility] [place], [place], [id number] Total proteinOrdered By: Antonette Christian on 04-22-2024 Protein [Mass/Vol] 8.1 g/dL 5.9-8.4 [facility] White blood cell (WBC) count Ordered By: Catia Christian on 04-22-2024 WBC (Bld) [#/Vol] 6.2 10*3/uL 4.4-11.0 [facility] Aldolaseon 01-23-2024 ALDOLASE 4.8 U/L Normal 3.3-10.3 [facility] Comment on above: Result Comment: Perf ormed at: - [facility] [address] [id number] [employer]er: Harley Griffith PhD, Phone: [phone] Performed By: #### L 500.4050, L100.0100, L3100.7000, L501.3620 #### [facility] [address] [place], [place], [id number] Absolute neutrophil countOrd ered By: Natalie Rodriguez on 01-22-2024 Neutrophils (Bld) [#/Vol] 6.5 10*3/uL 2.0-7.7 [facility] Albumin to globulin ratioOrd ered By: Natalie Rodriguez on 01-22-2024 Albumin/Globulin [Mass ratio] 0.9 {ratio} 0.9-2.4 [facility] Aldolase [Catalytic activity /Vol]Ordered By: Natalie Rodriguez on 01-22-2024 Aldolase 4.8 U/L 3.3-10.3 [facility] Comment on above: Performed at: [address] [id number] Director: Harley Griffith PhD, Phone: [phone] Basophil percentageOrdered B y: Natalie Rodriguez on 01-22-2024 Basophils/100 WBC (Bld) 0.8 % 0-1 [facility] Bilirubin, totalOrdered By: Natalie Rodriguez on 01-22-2024 Bilirubin [Mass/Vol] 0.50 mg/dL 0.20-1.00 [facility] Comment on above: For patients on eltr ombopag therapy, use of Dimension [place] TBIL is not recommended. Blood urea nitrogen (BUN)/cr eatinine ratioOrdered By: Natalie Rodriguez on 01-22-2024 Urea nitrogen/Creatinine [Mass ratio] 18.8 mg/mg 10-20 [facility] CBC W/Diff, Automatedon 01-05 Absolute Lymph 1.91 X10 3/uL Normal 0.83-4.51 [facility] Comment on above: Performed By: #### L 500.4050, L100.0100, L3100.7000, L501.3620 #### [facility] [address] [place], [place], [id number] Absolute Neut 6.5 X10 3/uL Normal 2.0-7.7 [facility] Comment on above: Performed By: #### L 500.4050, L100.0100, L3100.7000, L501.3620 #### [facility] [address] [place], [address] Basophils/100 WBC (Bld) 0.8 % Normal 0-1 [facility] Comment on above: Performed By: #### L 500.4050, L100.0100, L3100.7000, L501.3620 #### [facility] [address] [place], [address] Eosinophils/100 WBC (Bld) 0.7 % Normal 0-5 [facility] Comment on above: Performed By: #### L 500.4050, L100.0100, L3100.7000, L501.3620 #### [facility] [address] [place], [address] Erythrocyte distribution width (RBC) [Ratio] 14.2 % Normal 11.6-14.6 [facility] Comment on above: Performed By: #### L 500.4050, L100.0100, L3100.7000, L501.3620 #### [facility] [address] [place], [address] Hematocrit (Bld) [Volume fraction] 45.7 % Normal 37-47 [facility] Comment on above: Performed By: #### L 500.4050, L100.0100, L3100.7000, L501.3620 #### [facility] [address] [place], [address] Hemoglobin (Bld) [Mass/Vol] 15.5 g/dL High 12.0-15.0 [facility] Comment on above: Performed By: #### L 500.4050, L100.0100, L3100.7000, L501.3620 #### [facility] [address] [place], [address] IG% 0.400 Normal 0.0-0.9 [facility] Comment on above: Result Comment: IG% - Immature Granulocytes (promyelocytes, myelocytes and metamyelocytes) > 1% indicates that a LEFT SHIFT is Present. Performed By: #### L 500.4050, L100.0100, L3100.7000, L501.3620 #### [facility] [address] [place], [address] Lymphocytes/100 WBC (Bld) 20.2 % Normal 19-41 [facility] Comment on above: Performed By: #### L 500.4050, L100.0100, L3100.7000, L501.3620 #### [facility] [address] [place], [address] MCH (RBC) [Entitic mass] 31.4 pg Normal 27.0-32.0 [facility] Comment on above: Performed By: #### L 500.4050, L100.0100, L3100.7000, L501.3620 #### [facility] [address] [place], [address] MCHC (RBC) [Mass/Vol] 33.9 g/dL Normal 32-36 [facility] Comment on above: Performed By: #### L 500.4050, L100.0100, L3100.7000, L501.3620 #### [facility] [address] [place], [address] MCV (RBC) [Entitic vol] 92.7 fL Normal 81-99 [facility] Comment on above: Performed By: #### L 500.4050, L100.0100, L3100.7000, L501.3620 #### [facility] [address] [place], [address] Monocytes/100 WBC (Bld) 9.7 % Normal 0-10 [facility] Comment on above: Performed By: #### L 500.4050, L100.0100, L3100.7000, L501.3620 #### [facility] [address] [place], [address] Neutrophils/100 WBC (Bld) 68.2 % Normal 47-70 [facility] Comment on above: Performed By: #### L 500.4050, L100.0100, L3100.7000, L501.3620 #### [facility] [address] [place], [address] Nucleated RBC (Bld) [#/Vol] 0 10*3/uL Normal 0-5 [facility] Comment on above: Performed By: #### L 500.4050, L100.0100, L3100.7000, L501.3620 #### [facility] [address] [place], [address] Platelet mean volume (Bld) [Entitic vol] 9.3 fL Normal 6.2-12.0 [facility] Comment on above: Performed By: #### L 500.4050, L100.0100, L3100.7000, L501.3620 #### [facility] [address] [place], [address] Platelets (Bld) [#/Vol] 310 10*3/uL Normal 150-450 [facility] Comment on above: Performed By: #### L 500.4050, L100.0100, L3100.7000, L501.3620 #### [facility] [address] [place], [address] RBC (Bld) [#/Vol] 4.93 10*6/uL Normal 4.2-5.4 [facility] Comment on above: Performed By: #### L 500.4050, L100.0100, L3100.7000, L501.3620 #### [facility] [address] [place], [address] RDW SD 47.3 fl High 35.1-43.9 [facility] Comment on above: Performed By: #### L 500.4050, L100.0100, L3100.7000, [id number] #### [facility] [address] [place], [address] WBC (Bld) [#/Vol] 9.5 10*3/uL Normal 4.4-11.0 [facility] Comment on above: Performed By: #### L 500.4050, L100.0100, L3100.7000, [id number] #### [facility] [address] [place], [address] CPK Total, Creatine Kinaseon 01-22-2024 CPK TOTAL 41 U/L Normal 26-192 [facility] Comment on above: Performed By: #### L 500.4050, L100.0100, L3100.7000, [id number] #### [facility] [address] [place], [address] Carbon dioxide measurementOr dered By: Natalie Rodriguez on 01-22-2024 CO2 [Moles/Vol] 24.0 mmol/L 21.0-32.0 [facility] Chloride measurementOrdered By: Natalie Rodriguez on 01-22-2024 Chloride [Moles/Vol] 105 mmol/L 98-107 [facility] Comprehensive Metabolic Prof ilon 01-22-2024 Albumin [Mass/Vol] 3.9 g/dL Normal 3.2-5.0 [facility] Comment on above: Performed By: #### L 500.4050, L100.0100, L3100.7000, [id number] #### [facility] [address] [place], [address] Albumin/Globulin [Mass ratio] 0.9 {ratio} Normal 0.9-2.4 [facility] Comment on above: Performed By: #### L 500.4050, L100.0100, L3100.7000, [id number] #### [facility] [address] [place], [address] ALK P 68 U/L Normal 45-117 [facility] Comment on above: Performed By: #### L 500.4050, L100.0100, L3100.7000, [id number] #### [facility] [address] [place], [address] ALT [Catalytic activity/Vol] 47 U/L Normal 13-56 [facility] Comment on above: Performed By: #### L 500.4050, L100.0100, L3100.7000, [id number] #### [facility] [address] [place], [address] AST [Catalytic activity/Vol] 21 U/L Normal 15-37 [facility] Comment on above: Performed By: #### L 500.4050, L100.0100, L3100.7000, [id number] #### [facility] [address] [place], [address] Bilirubin [Mass/Vol] 0.50 mg/dL Normal 0.20-1.00 [facility] Comment on above: Result Comment: For patients on eltrombopag therapy, use of Dimension [place] TBIL is not recommended. Performed By: #### L 500.4050, L100.0100, L3100.7000, [id number] #### [facility] [address] [place], [address] BUN/CRE 18.8 RATIO Normal 10-20 [facility] Comment on above: Performed By: #### L 500.4050, L100.0100, L3100.7000, [id number] #### [facility] [address] [place], [address] CA,Total 9.9 mg/dL Normal 8.5-10.1 [facility] Comment on above: Performed By: #### L 500.4050, L100.0100, L3100.7000, [id number] #### [facility] [address] [place], [address] Chloride [Moles/Vol] 105 mmol/L Normal 98-107 [facility] Comment on above: Performed By: #### L 500.4050, L100.0100, L3100.7000, [id number] #### [facility] [address] [place], [address] CO2 [Moles/Vol] 24.0 mmol/L Normal 21.0-32.0 [facility] Comment on above: Performed By: #### L 500.4050, L100.0100, L3100.7000, [id number] #### [facility] [address] [place], [address] Creatinine [Mass/Vol] 0.64 mg/dL Normal 0.55-1.02 [facility] Comment on above: Result Comment: The validity of the calculated GFR GFRAA in patients over 70 years has not been determined. Clinical correlation is essential. Performed By: #### L 500.4050, L100.0100, L3100.7000, [id number] #### [facility] [address] [place], [address] EST GFR - AA 113 mL/min Normal >60 [facility] Comment on above: Result Comment: Afri can Mongolian GFR Calc Performed By: #### L 500.4050, L100.0100, L3100.7000, [id number] #### [facility] [address] [place], [address] GAP 7 Normal 5-15 [facility] Comment on above: Performed By: #### L 500.4050, L100.0100, L3100.7000, [id number] #### [facility] [address] [place], [address] GFR/1.73 sq M.predicted among non-blacks MDRD (S/P/Bld) [Vol rate/Area] 93 mL/min/{1.73_m2} Normal >60 [facility] Comment on above: Result Comment: Non- GFR Calc Performed By: #### L 500.4050, L100.0100, L3100.7000, [id number] #### [facility] [address] [place], [address] Globulin (S) [Mass/Vol] 4.2 g/dL Normal 2.2-4.2 [facility] Comment on above: Performed By: #### L 500.4050, L100.0100, L3100.7000, [id number] #### [facility] [address] [place], [address] Glucose [Mass/Vol] 112 mg/dL High 74-106 [facility] Comment on above: Result Comment: Fast ing Glucose result from 100 to 125 mg/dL suggests IMPAIRED HOMEOSTASIS per A.D.A. criteria. Performed By: #### L 500.4050, L100.0100, L3100.7000, [id number] #### [facility] [address] [place], [address] Potassium [Moles/Vol] 3.6 mmol/L Normal 3.5-5.1 [facility] Comment on above: Performed By: #### L 500.4050, L100.0100, L3100.7000, [id number] #### [facility] [address] [place], [address] Sodium [Moles/Vol] 136 mmol/L Normal 136-145 [facility] Comment on above: Performed By: #### L 500.4050, L100.0100, L3100.7000, [id number] #### [facility] [address] [place], [address] T PROT 8.1 g/dL Normal 6.4-8.2 [facility] Comment on above: Performed By: #### L 500.4050, L100.0100, L3100.7000, [id number] #### [facility] [address] [place], [address] Urea nitrogen [Mass/Vol] 12 mg/dL Normal 7-18 [facility] Comment on above: Performed By: #### L 500.4050, L100.0100, L3100.7000, [id number] #### [facility] [address] [place], [address] Eosinophil percentageOrdered By: Natalie Rodriguez on 01-22-2024 Eosinophils/100 WBC (Bld) 0.7 % 0-5 [facility] Erythrocyte distribution wid th ratioOrdered By: Natalieelizabeth Rodriguez on 01-22-2024 Erythrocyte distribution width (RBC) [Ratio] 14.2 % 11.6-14.6 [facility] Erythrocyte distribution wid th standard deviationOrdered By: Natalieelizabeth Rodriguez on 01-22-2024 Erythrocyte distribution width (RBC) [Entitic vol] 47.3 fL High 35.1-43.9 [facility] Estimated glomerular filtrat ion rate (GFR) AmericanOrdered By: Natalie Rodriguez on 01-22-2024 Estimated GFR (MDRD) Amer 113 mL/min >60 [facility] Comment on above: GFR Calc Glomerular filtration rate ( GFR) estimationOrdered By: Natalie Rodriguez on 01-22-2024 Estimated GFR (MDRD) Non-Af Amer 93 mL/min >60 [facility] Comment on above: Non- GFR Calc Glucose measurementOrdered B y: Natalie Rodriguez on 01-22-2024 Glucose [Mass/Vol] 112 mg/dL High 74-106 [facility] Comment on above: Fasting Glucose resu lt from 100 to 125 mg/dL suggests IMPAIRED HOMEOSTASIS per A.D.A. criteria. Hematocrit Auto (Bld) [Volum e fraction]Ordered By: Natalie Rodriguez on 01-22-2024 Hematocrit (Bld) [Volume fraction] 45.7 % 37-47 [facility] Hemoglobin measurementOrdere d By: Natalie Rodriguez on 01-22-2024 Hemoglobin (Bld) [Mass/Vol] 15.5 g/dL High 12.0-15.0 [facility] Immature granulocytes/100 WB C Auto (Bld)Ordered By: Natalie Rodriguez on 01-22-2024 Immature granulocytes/100 WBC (Bld) 0.400 % 0.0-0.9 [facility] Comment on above: IG% - Immature Granu locytes (promyelocytes, myelocytes and metamyelocytes) > 1% indicates that a LEFT SHIFT is Present. Laboratory - Chemistry and C hemistry - challengeOrdered By: Natalie Rodriguez on 01-22-2024 AST [Catalytic activity/Vol] 21 U/L 15-37 [facility] Lymphocytes Auto (Unsp spec) [#/Vol]Ordered By: Natalieelizabeth Rodriguez on 01-22-2024 Lymphocytes (Bld) [#/Vol] 1.91 10*3/uL 0.83-4.51 [facility] Lymphocytes/100 WBC Auto (Un sp spec)Ordered By: Natalie Rodriguez on 01-22-2024 Lymphocytes/100 WBC (Bld) 20.2 % 19-41 [facility] MCV (mean corpuscular volume ) determinationOrdered By: Natalie Rodriguez on 01-22-2024 MCV (RBC) [Entitic vol] 92.7 fL 81-99 [facility] Mean corpuscular hemoglobin (MCH) determinationOrdered By: Natalie Rodriguez on 01-22-2024 MCH (RBC) [Entitic mass] 31.4 pg 27.0-32.0 [facility] Mean corpuscular hemoglobin concentration (MCHC) determinationOrdered By: Natalie Rodriguez on 01-22-2024 MCHC (RBC) [Mass/Vol] 33.9 g/dL 32-36 [facility] Mean platelet volume determi nationOrdered By: Natalie Rodriguez on 01-22-2024 Platelet mean volume (Bld) [Entitic vol] 9.3 fL 6.2-12.0 [facility] Monocyte percentageOrdered B y: Natalie Rodriguez on 01-22-2024 Monocytes/100 WBC (Bld) 9.7 % 0-10 [facility] Neutrophil percentageOrdered By: Natalie Rodriguez on 01-22-2024 Neutrophils/100 WBC (Bld) 68.2 % 47-70 [facility] Nucleated red blood cell per centageOrdered By: Natalie Rodriguez on 01-22-2024 Nucleated RBC/100 WBC (Bld) [Ratio] 0 % 0-5 [facility] Platelet countOrdered By: Wilfrido Rodriguez on 01-22-2024 Platelets (Bld) [#/Vol] 310 10*3/uL 150-450 [facility] Potassium measurementOrdered By: Natalie Rodriguez on 01-22-2024 Potassium [Moles/Vol] 3.6 mmol/L 3.5-5.1 [facility] RBC Auto (Bld) [#/Vol]Ordere d By: Natalie Rodriguez on 01-22-2024 RBC (Bld) [#/Vol] 4.93 10*6/uL 4.2-5.4 [facility] Serum anion gap measurementO rdered By: Natalie Rodriguez on 01-22-2024 Anion gap [Moles/Vol] 7 mmol/L 5-15 [facility] Serum globulin measurementOr dered By: Natalie Rodriguez on 01-22-2024 Globulin (S) [Mass/Vol] 4.2 g/dL 2.2-4.2 [facility] Serum or plasma alanine myers otransferase (ALT) measurementOrdered By: Natalie Rodriguez on 01-22-2024 ALT [Catalytic activity/Vol] 47 U/L 13-56 [facility] Serum or plasma albumin nanyc urement (mass/volume)Ordered By: Natalie Rodriguez on 01-22-2024 Albumin [Mass/Vol] 3.9 g/dL 3.2-5.0 [facility] Serum or plasma alkaline lindsey sphatase measurementOrdered By: Natalie Rodriguez on 01-22-2024 ALP [Catalytic activity/Vol] 68 U/L 45-117 [facility] Serum or plasma calcium nancy urement (mass/volume)Ordered By: Natalie Rodriguez on 01-22-2024 Calcium [Mass/Vol] 9.9 mg/dL 8.5-10.1 [facility] Serum or plasma creatinine m easurement (mass/volume)Ordered By: Natalie Rodriguez on 01-22-2024 Creatinine [Mass/Vol] 0.64 mg/dL 0.55-1.02 [facility] Comment on above: The validity of the calculated GFR & GFRAA in patients over 70 years has not been determined. Clinical correlation is essential. Serum or plasma urea nitroge n measurement (mass/volume)Ordered By: Natalie Rodriguez on 01-22-2024 Urea nitrogen [Mass/Vol] 12 mg/dL 7-18 [facility] Sodium levelOrdered By: Shawna Rodriguez on 01-22-2024 Sodium [Moles/Vol] 136 mmol/L 136-145 [facility] Total creatine kinase measur ementOrdered By: Natalie Rodriguez on 01-22-2024 CK [Catalytic activity/Vol] 41 U/L 26-192 [facility] Total proteinOrdered By: Layne Rodriguez on 01-22-2024 Protein [Mass/Vol] 8.1 g/dL 6.4-8.2 [facility] White blood cell (WBC) count Ordered By: Natalie Rodriguez on 01-22-2024 WBC (Bld) [#/Vol] 9.5 10*3/uL 4.4-11.0 [facility] CBC W/Diff, Automatedon 09-2 Absolute Lymph 1.56 X10 3/uL Normal 0.83-4.51 [facility] Comment on above: Performed By: #### L 500.4050, L100.0100, L3100.7000, [id number] #### [facility] [address] [place] [address]. [place], [address] Absolute Neut 4.3 X10 3/uL Normal 2.0-7.7 [facility] Comment on above: Performed By: #### L 500.4050, L100.0100, L3100.7000, [id number] #### [facility] [address] [place], [address] Basophils/100 WBC (Bld) 0.9 % Normal 0-1 [facility] Comment on above: Performed By: #### L 500.4050, L100.0100, L3100.7000, [id number] #### [facility] [address] [place], [address] Eosinophils/100 WBC (Bld) 0.7 % Normal 0-5 [facility] Comment on above: Performed By: #### L 500.4050, L100.0100, L3100.7000, [id number] #### [facility] [address] [place], [address] Erythrocyte distribution width (RBC) [Ratio] 13.7 % Normal 11.6-14.6 [facility] Comment on above: Performed By: #### L 500.4050, L100.0100, L3100.7000, [id number] #### [facility] [address] [place], [address] Hematocrit (Bld) [Volume fraction] 42.5 % Normal 37-47 [facility] Comment on above: Performed By: #### L 500.4050, L100.0100, L3100.7000, [id number] #### [facility] [address] [place], [address] Hemoglobin (Bld) [Mass/Vol] 14.2 g/dL Normal 12.0-15.0 [facility] Comment on above: Performed By: #### L 500.4050, L100.0100, L3100.7000, [id number] #### [facility] [address] [place], [address] IG% 0.600 Normal 0.0-0.9 [facility] Comment on above: Result Comment: IG% - Immature Granulocytes (promyelocytes, myelocytes and metamyelocytes) > 1% indicates that a LEFT SHIFT is Present. Performed By: #### L 500.4050, L100.0100, L3100.7000, [id number] #### [facility] [address] [place], [address] Lymphocytes/100 WBC (Bld) 23.4 % Normal 19-41 [facility] Comment on above: Performed By: #### L 500.4050, L100.0100, L3100.7000, [id number] #### [facility] [address] [place], [address] MCH (RBC) [Entitic mass] 30.5 pg Normal 27.0-32.0 [facility] Comment on above: Performed By: #### L 500.4050, L100.0100, L3100.7000, [id number] #### [facility] [address] [place], [address] MCHC (RBC) [Mass/Vol] 33.4 g/dL Normal 32-36 [facility] Comment on above: Performed By: #### L 500.4050, L100.0100, L3100.7000, [id number] #### [facility] [address] [place], [address] MCV (RBC) [Entitic vol] 91.4 fL Normal 81-99 [facility] Comment on above: Performed By: #### L 500.4050, L100.0100, L3100.7000, [id number] #### [facility] [address] [place], [address] Monocytes/100 WBC (Bld) 10.0 % Normal 0-10 [facility] Comment on above: Performed By: #### L 500.4050, L100.0100, L3100.7000, [id number] #### [facility] [address] [place], [address] Neutrophils/100 WBC (Bld) 64.4 % Normal 47-70 [facility] Comment on above: Performed By: #### L 500.4050, L100.0100, L3100.7000, [id number] #### [facility] [address] [place], [address] Nucleated RBC (Bld) [#/Vol] 0 10*3/uL Normal 0-5 [facility] Comment on above: Performed By: #### L 500.4050, L100.0100, L3100.7000, [id number] #### [facility] [address] [place], [address] Platelet mean volume (Bld) [Entitic vol] 9.3 fL Normal 6.2-12.0 [facility] Comment on above: Performed By: #### L 500.4050, L100.0100, L3100.7000, [id number] #### [facility] [address] [place], [address] Platelets (Bld) [#/Vol] 364 10*3/uL Normal 150-450 [facility] Comment on above: Performed By: #### L 500.4050, L100.0100, L3100.7000, [id number] #### [facility] [address] [place], [address] RBC (Bld) [#/Vol] 4.65 10*6/uL Normal 4.2-5.4 [facility] Comment on above: Performed By: #### L 500.4050, L100.0100, L3100.7000, [id number] #### [facility] [address] [place], [address] RDW SD 44.9 fl High 35.1-43.9 [facility] Comment on above: Performed By: #### L 500.4050, L100.0100, L3100.7000, [id number] #### [facility] [address] [place], [address] WBC (Bld) [#/Vol] 6.7 10*3/uL Normal 4.4-11.0 [facility] Comment on above: Performed By: #### L 500.4050, L100.0100, L3100.7000, [id number] #### [facility] [address] [place], [address] Aldolaseon 09-06-2023 ALDOLASE 3.5 U/L Normal 3.3-10.3 [facility] Comment on above: Result Comment: Perf ormed at: - [facility] [address] [id number] [employer]: Harley Griffith PhD, Phone: [phone] Performed By: #### L 500.4050, L100.0100, L3100.7000, [id number] #### [facility] [address] [place], [address] CBC W/Diff, Automatedon 073 Absolute Neut Normal 2.0-7.7 [facility] Comment on above: Result Comment: This specimen has been REJECTED due to Laboratory criteria: Clotted. EMMANUEL has been notified of need of recollection. 09/04/23 Farzad Valdez Performed By: #### L 500.4050, L100.0100, L3100.7000, [id number] #### [facility] [address] [place], [address] HCT Normal 37-47 [facility] Comment on above: Result Comment: This specimen has been REJECTED due to Laboratory criteria: Clotted. EMMANUEL has been notified of need of recollection. 09/04/23 1237 Linda Valdez Performed By: #### L 500.4050, L100.0100, L3100.7000, [id number] #### [facility] [address] [place], [address] HGB Normal 12.0-15.0 [facility] Comment on above: Result Comment: This specimen has been REJECTED due to Laboratory criteria: Clotted. EMMANUEL has been notified of need of recollection. 09/04/23 1237 Linda Valdez Performed By: #### L 500.4050, L100.0100, L3100.7000, [id number] #### [facility] [address] [place], [address] MCH Normal 27.0-32.0 [facility] Comment on above: Result Comment: This specimen has been REJECTED due to Laboratory criteria: Clotted. EMMNAUEL has been notified of need of recollection. 09/04/23 1237 Linda Valdez Performed By: #### L 500.4050, L100.0100, L3100.7000, [id number] #### [facility] [address] [place], [address] MCHC Normal 32-36 [facility] Comment on above: Result Comment: This specimen has been REJECTED due to Laboratory criteria: Clotted. EMMANUEL has been notified of need of recollection. 09/04/23 1237 Linda Valdez Performed By: #### L 500.4050, L100.0100, L3100.7000, [id number] #### [facility] [address] [place], [address] MCV Normal 81-99 [facility] Comment on above: Result Comment: This specimen has been REJECTED due to Laboratory criteria: Clotted. EMMANUEL has been notified of need of recollection. 09/04/23 1237 Linda Valdez Performed By: #### L 500.4050, L100.0100, L3100.7000, [id number] #### [facility] [address] [place], [address] NEUT% Normal 47-70 [facility] Comment on above: Result Comment: This specimen has been REJECTED due to Laboratory criteria: Clotted. EMMANUEL has been notified of need of recollection. 09/04/23 1237 Linda Valdez Performed By: #### L 500.4050, L100.0100, L3100.7000, [id number] #### [facility] [address] [place], [address] PLT Normal 150-450 [facility] Comment on above: Result Comment: This specimen has been REJECTED due to Laboratory criteria: Clotted. EMMANUEL has been notified of need of recollection. 09/04/23 1237 Linda Valdez Performed By: #### L 500.4050, L100.0100, L3100.7000, [id number] #### [facility] [address] [place], [address] RBC Normal 4.2-5.4 [facility] Comment on above: Result Comment: This specimen has been REJECTED due to Laboratory criteria: Clotted. EMMANUEL has been notified of need of recollection. 09/04/23 1237 Linda Valdez Performed By: #### L 500.4050, L100.0100, L3100.7000, [id number] #### [facility] [address] [place], [address] RDW CV Normal 11.6-14.6 [facility] Comment on above: Result Comment: This specimen has been REJECTED due to Laboratory criteria: Clotted. EMMANUEL has been notified of need of recollection. 09/04/23 1237 Linda Valdez Performed By: #### L 500.4050, L100.0100, L3100.7000, [id number] #### [facility] [address] [place], [address] RDW SD Normal 35.1-43.9 [facility] Comment on above: Result Comment: This specimen has been REJECTED due to Laboratory criteria: Clotted. EMMANUEL has been notified of need of recollection. 09/04/23 1237 Linda Valdez Performed By: #### L 500.4050, L100.0100, L3100.7000, [id number] #### [facility] [address] [place], [address] WBC Normal 4.4-11.0 [facility] Comment on above: Result Comment: This specimen has been REJECTED due to Laboratory criteria: Clotted. EMMANUEL has been notified of need of recollection. 09/04/23 1237 Linda Valdez Performed By: #### L 500.4050, L100.0100, L3100.7000, [id number] #### [facility] [address] [place], [address] CPK Total, Creatine Kinaseon 09-04-2023 CPK TOTAL 49 U/L Normal 26-192 [facility] Comment on above: Performed By: #### L 500.4050, L100.0100, L3100.7000, [id number] #### [facility] [address] [place], [address] Comprehensive Metabolic Prof ilon 09-04-2023 Albumin [Mass/Vol] 3.6 g/dL Normal 3.2-5.0 [facility] Comment on above: Performed By: #### L 500.4050, L100.0100, L3100.7000, [id number] #### [facility] [address] [place], [address] Albumin/Globulin [Mass ratio] 0.7 {ratio} Low 0.9-2.4 [facility] Comment on above: Performed By: #### L 500.4050, L100.0100, L3100.7000, [id number] #### [facility] [address] [place], [address] ALK P 86 U/L Normal 45-117 [facility] Comment on above: Performed By: #### L 500.4050, L100.0100, L3100.7000, [id number] #### [facility] [address] [place], [address] ALT [Catalytic activity/Vol] 34 U/L Normal 13-56 [facility] Comment on above: Performed By: #### L 500.4050, L100.0100, L3100.7000, [id number] #### [facility] [address] [place], [address] AST [Catalytic activity/Vol] 25 U/L Normal 15-37 [facility] Comment on above: Performed By: #### L 500.4050, L100.0100, L3100.7000, [id number] #### [facility] [address] [place], [address] Bilirubin [Mass/Vol] 0.80 mg/dL Normal 0.20-1.00 [facility] Comment on above: Result Comment: For patients on eltrombopag therapy, use of Dimension [place] TBIL is not recommended. Performed By: #### L 500.4050, L100.0100, L3100.7000, [id number] #### [facility] [address] [place], [address] BUN/CRE 21.7 RATIO High 10-20 [facility] Comment on above: Performed By: #### L 500.4050, L100.0100, L3100.7000, [id number] #### [facility] [address] [place], [address] CA,Total 9.7 mg/dL Normal 8.5-10.1 [facility] Comment on above: Performed By: #### L 500.4050, L100.0100, L3100.7000, [id number] #### [facility] [address] [place], [address] Chloride [Moles/Vol] 105 mmol/L Normal 98-107 [facility] Comment on above: Performed By: #### L 500.4050, L100.0100, L3100.7000, [id number] #### [facility] [address] [place], [address] CO2 [Moles/Vol] 24.0 mmol/L Normal 21.0-32.0 [facility] Comment on above: Performed By: #### L 500.4050, L100.0100, L3100.7000, [id number] #### [facility] Laboratory [address] [place], [address] Creatinine [Mass/Vol] 0.69 mg/dL Normal 0.55-1.02 [facility] Comment on above: Result Comment: The validity of the calculated GFR GFRAA in patients over 70 years has not been determined. Clinical correlation is essential. Performed By: #### L 500.4050, L100.0100, L3100.7000, [id number] #### [facility] [address] [place], [address] EST GFR - AA 103 mL/min Normal >60 [facility] Comment on above: Result Comment: Afri can Mongolian GFR Calc Performed By: #### L 500.4050, L100.0100, L3100.7000, [id number] #### [facility] [address] [place], [address] GAP 8 Normal 5-15 [facility] Comment on above: Performed By: #### L 500.4050, L100.0100, L3100.7000, [id number] #### [facility] [address] [place], [address] GFR/1.73 sq M.predicted among non-blacks MDRD (S/P/Bld) [Vol rate/Area] 85 mL/min/{1.73_m2} Normal >60 [facility] Comment on above: Result Comment: Non- GFR Calc Performed By: #### L 500.4050, L100.0100, L3100.7000, [id number] #### [facility] [address] [place], [address] Globulin (S) [Mass/Vol] 5.1 g/dL High 2.2-4.2 [facility] Comment on above: Performed By: #### L 500.4050, L100.0100, L3100.7000, [id number] #### [facility] [address] [place], [address] Glucose [Mass/Vol] 113 mg/dL High 74-106 [facility] Comment on above: Result Comment: Fast ing Glucose result from 100 to 125 mg/dL suggests IMPAIRED HOMEOSTASIS per A.D.A. criteria. Performed By: #### L 500.4050, L100.0100, L3100.7000, [id number] #### [facility] [address] [place], [address] Potassium [Moles/Vol] 3.8 mmol/L Normal 3.5-5.1 [facility] Comment on above: Performed By: #### L 500.4050, L100.0100, L3100.7000, [id number] #### [facility] [address] [place], [address] Sodium [Moles/Vol] 137 mmol/L Normal 136-145 [facility] Comment on above: Performed By: #### L 500.4050, L100.0100, L3100.7000, [id number] #### [facility] [address] [place], [address] T PROT 8.7 g/dL High 6.4-8.2 [facility] Comment on above: Performed By: #### L 500.4050, L100.0100, L3100.7000, [id number] #### [facility] [address] [place], [address] Urea nitrogen [Mass/Vol] 15 mg/dL Normal 7-18 [facility] Comment on above: Performed By: #### L 500.4050, L100.0100, L3100.7000, [id number] #### [facility] [address] [place], [address] Absolute lymphocyte countOrd ered By: Natalie Rodriguez on 05-16-2023 Lymphocytes Auto (Unsp spec) [#/Vol] 1.32 10*3/uL 0.83-4.51 [facility] Aldolase ser/plasOrdered By: Natalie Rodriguez on 05-16-2023 Aldolase [Catalytic activity/Vol] 2.8 mU/mL 3.3-10.3 [facility] Comment on above: Performed at: [address] [id number] Director: Harley Griffith PhD, Phone: [phone] Automated lymphocyte count a s percentage of total leukocytesOrdered By: Natalei Rodriguez on 05-16-2023 Lymphocytes/100 WBC Auto (Unsp spec) 22.0 % 19-41 [facility] Basophil percentageOrdered B y: Natalie Rodriguez on 05-16-2023 Basophils/100 WBC (Bld) 1.2 % 0-1 [facility] Bilirubin [Mass/Vol] 0.50 mg/dL 0.20-1.00 [facility] Comment on above: For patients on eltr ombopag therapy, use of Dimension [place] TBIL is not recommended. Chloride [Moles/Vol] 103 mmol/L 98-107 [facility] Eosinophils/100 WBC (Bld) 1.2 % 0-5 [facility] Glucose [Mass/Vol] 170 mg/dL 74-106 [facility] Comment on above: Fasting Glucose resu lt greater than or equal to 126 mg/dL suggests DIABETES MELLITUS per A.D.A. criteria. Hemoglobin (Bld) [Mass/Vol] 14.5 g/dL 12.0-15.0 [facility] Monocytes/100 WBC (Bld) 14.2 % 0-10 [facility] Neutrophils (Bld) [#/Vol] 3.7 10*3/uL 2.0-7.7 [facility] Neutrophils/100 WBC (Bld) 61.1 % 47-70 [facility] Potassium [Moles/Vol] 3.5 mmol/L 3.5-5.1 [facility] Protein [Mass/Vol] 9.0 g/dL 6.4-8.2 [facility] Sodium [Moles/Vol] 134 mmol/L 136-145 [facility] WBC (Bld) [#/Vol] 6.0 10*3/uL 4.4-11.0 [facility] Determination of erythrocyte mean corpuscular volume (MCV)Ordered By: Natalie Rodriguez on 05-16-2023 MCV (RBC) [Entitic vol] 90.3 fL 81-99 [facility] Erythrocyte distribution wid th ratioOrdered By: Natalie Rodriguez on 05-16-2023 Erythrocyte distribution width (RBC) [Ratio] 13.2 % 11.6-14.6 [facility] Erythrocyte distribution wid th standard deviationOrdered By: Natalie Rodriguez on 05-16-2023 Erythrocyte distribution width (RBC) [Entitic vol] 43.9 fL 35.1-43.9 [facility] Hematocrit Auto (Bld) [Volum e fraction]Ordered By: Natalie Rodriguez on 05-16-2023 Hematocrit (Bld) [Volume fraction] 42.9 % 37-47 [facility] Immature granulocytes/100 WB C Auto (Bld)Ordered By: Natalie Rodriguez on 05-16-2023 Immature granulocytes/100 WBC (Bld) 0.300 % 0.0-0.9 [facility] Comment on above: IG% - Immature Granu locytes (promyelocytes, myelocytes and metamyelocytes) > 1% indicates that a LEFT SHIFT is Present. Laboratory - Chemistry and C hemistry - challengeOrdered By: Natalie Rodriguez on 05-16-2023 Albumin/Globulin [Mass ratio] 0.6 {ratio} 0.9-2.4 [facility] ALP [Catalytic activity/Vol] 76 U/L 45-117 [facility] ALT [Catalytic activity/Vol] 28 U/L 13-56 [facility] CK [Catalytic activity/Vol] 44 U/L 26-192 [facility] CO2 [Moles/Vol] 24.0 mmol/L 21.0-32.0 [facility] Globulin (S) [Mass/Vol] 5.6 g/dL 2.2-4.2 [facility] Urea nitrogen/Creatinine [Mass ratio] 13.3 mg/mg 10-20 [facility] Laboratory - Hematology and Cell countsOrdered By: Natalie Rodriguez on 05-16-2023 MCH (RBC) [Entitic mass] 30.5 pg 27.0-32.0 [facility] MCHC (RBC) [Mass/Vol] 33.8 g/dL 32-36 [facility] Nucleated RBC/100 WBC (Bld) [Ratio] 0 % 0-5 [facility] Platelet mean volume (Bld) [Entitic vol] 9.5 fL 6.2-12.0 [facility] Platelets (Bld) [#/Vol] 264 10*3/uL 150-450 [facility] No Panel InformationOrdered By: Natalie Rodriguez on 05-16-2023 Estimated GFR (MDRD) Amer 70 mL/min >60 [facility] Comment on above: GFR Calc Estimated GFR (MDRD) Non-Af Amer 57 mL/min >60 [facility] Comment on above: Non- GFR Calc RBC Auto (Bld) [#/Vol]Ordere d By: Natalie Rodriguez on 05-16-2023 RBC (Bld) [#/Vol] 4.75 10*6/uL 4.2-5.4 [facility] Serum or plasma calcium nancy urement (mass/volume)Ordered By: Natalie Rodriguez on 05-16-2023 Calcium [Mass/Vol] 8.9 mg/dL 8.5-10.1 [facility] Serum or plasma creatinine m easurement (mass/volume)Ordered By: Natalie Rodriguez on 05-16-2023 Creatinine [Mass/Vol] 0.98 mg/dL 0.55-1.02 [facility] Comment on above: The validity of the calculated GFR & GFRAA in patients over 70 years has not been determined. Clinical correlation is essential. Serum or plasma urea nitroge n measurement (mass/volume)Ordered By: Natalie Rodriguez on 05-16-2023 Urea nitrogen [Mass/Vol] 13 mg/dL 7-18 [facility] Thin prep Papanicolaou smear with manual screeningOrdered By: Natalie Rodriguez on 05-16-2023 Thin prep Papanicolaou smear with manual screening 3.4 g/dL 3.2-5.0 [facility] Thin prep Papanicolaou smear with manual screening 19 U/L 15-37 [facility] Thin prep Papanicolaou smear with manual screening 7 5-15 [facility] Absolute lymphocyte countOrd ered By: Natalie Rodriguez on 11-24-2022 Lymphocytes Auto (Unsp spec) [#/Vol] 1.73 10*3/uL 0.83-4.51 [facility] Aldolase ser/plasOrdered By: Natalie Rodriguez on 11-24-2022 Aldolase [Catalytic activity/Vol] 3.2 mU/mL 3.3-10.3 [facility] Comment on above: Performed at: [address] [id number] Director: Harley Griffith PhD, Phone: [phone] Basophil percentageOrdered B y: Natalie Rodriguez on 11-24-2022 Basophils/100 WBC (Bld) 1.3 % 0-1 [facility] Bilirubin [Mass/Vol] 0.30 mg/dL 0.20-1.00 [facility] Comment on above: For patients on eltr ombopag therapy, use of Dimension [place] TBIL is not recommended. Chloride [Moles/Vol] 107 mmol/L 98-107 [facility] Eosinophils/100 WBC (Bld) 1.0 % 0-5 [facility] Glucose [Mass/Vol] 135 mg/dL 74-106 [facility] Comment on above: Fasting Glucose resu lt greater than or equal to 126 mg/dL suggests DIABETES MELLITUS per A.D.A. criteria. Neutrophils (Bld) [#/Vol] 3.4 10*3/uL 2.0-7.7 [facility] Neutrophils/100 WBC (Bld) 55.0 % 47-70 [facility] Potassium [Moles/Vol] 3.8 mmol/L 3.5-5.1 [facility] Comment on above: Slight Hemolysis, Re sult may be falsely increased. Protein [Mass/Vol] 8.6 g/dL 6.4-8.2 [facility] Sodium [Moles/Vol] 138 mmol/L 136-145 [facility] WBC (Bld) [#/Vol] 6.2 10*3/uL 4.4-11.0 [facility] Blood erythrocytes count (nu mber/volume)Ordered By: Natalie Rodriguez on 11-24-2022 RBC (Bld) [#/Vol] 4.57 10*6/uL 4.2-5.4 [facility] Blood hemoglobin measurement (mass/volume)Ordered By: Natalie Rodriguez on 11-24-2022 Hemoglobin (Bld) [Mass/Vol] 14.4 g/dL 12.0-15.0 [facility] Blood lymphocytes/100 leukoc ytesOrdered By: Natalie Rodriguez on 11-24-2022 Lymphocytes/100 WBC (Bld) 28.1 % 19-41 [facility] Blood monocytes/100 leukocyt esOrdered By: Natalie Rodriguez on 11-24-2022 Monocytes/100 WBC (Bld) 14.3 % 0-10 [facility] Blood platelet mean volumeOr dered By: Natalie Rodriguez on 11-24-2022 Platelet mean volume (Bld) [Entitic vol] 9.8 fL 6.2-12.0 [facility] Determination of erythrocyte mean corpuscular volume (MCV)Ordered By: Natalie Rodriguez on 11-24-2022 MCV (RBC) [Entitic vol] 96.7 fL 81-99 [facility] Hematocrit Auto (Bld) [Volum e fraction]Ordered By: Natalie Rodriguez on 11-24-2022 Hematocrit (Bld) [Volume fraction] 44.2 % 37-47 [facility] Laboratory - Chemistry and C hemistry - challengeOrdered By: Natalie Rodriguez on 11-24-2022 ALP [Catalytic activity/Vol] 79 U/L 45-117 [facility] ALT [Catalytic activity/Vol] 30 U/L 13-56 [facility] CK [Catalytic activity/Vol] 51 U/L 26-192 [facility] CO2 [Moles/Vol] 23.0 mmol/L 21.0-32.0 [facility] Globulin (S) [Mass/Vol] 5.0 g/dL 2.2-4.2 [facility] Urea nitrogen/Creatinine [Mass ratio] 18.4 mg/mg 11-24 [facility] - Hematology and Cell countsOrdered By: Natalie Rodriguez on 11-24-2022 Erythrocyte distribution width (RBC) [Entitic vol] 49.5 fL 35.1-43.9 [facility] Erythrocyte distribution width (RBC) [Ratio] 13.9 % 11.6-14.6 [facility] Immature granulocytes/100 WBC (Bld) 0.300 % 0.0-0.9 [facility] Comment on above: IG% - Immature Granu locytes (promyelocytes, myelocytes and metamyelocytes) > 1% indicates that a LEFT SHIFT is Present. MCH (RBC) [Entitic mass] 31.5 pg 27.0-32.0 [facility] Nucleated RBC/100 WBC (Bld) [Ratio] 0 % 0-5 [facility] MCHC Auto (RBC) [Mass/Vol]Or dered By: Natalie Rodriguez on 11-24-2022 MCHC (RBC) [Mass/Vol] 32.6 g/dL 32-36 [facility] No Panel InformationOrdered By: Natalie Rodriguez on 11-24-2022 Estimated GFR (MDRD) Amer 93 mL/min >60 [facility] Comment on above: GFR Calc Estimated GFR (MDRD) Non-Af Amer 77 mL/min >60 [facility] Comment on above: Non- GFR Calc Platelets bldOrdered By: Layne Rodriguez on 11-24-2022 Platelets (Bld) [#/Vol] 314 10*3/uL 150-450 [facility] Serum or plasma albumin nancy urement (mass/volume)Ordered By: Natalie Rodriguez on 11-24-2022 Albumin [Mass/Vol] 3.6 g/dL 3.2-5.0 [facility] Serum or plasma albumin/glob ulin mass ratioOrdered By: Natalie Rodriguez on 11-24-2022 Albumin/Globulin [Mass ratio] 0.7 {ratio} 0.9-2.4 [facility] Serum or plasma calcium nancy urement (mass/volume)Ordered By: Natalie Rodriguez on 11-24-2022 Calcium [Mass/Vol] 9.5 mg/dL 8.5-10.1 [facility] Serum or plasma creatinine m easurement (mass/volume)Ordered By: Natalie Rodriguez on 11-24-2022 Creatinine [Mass/Vol] 0.76 mg/dL 0.55-1.02 [facility] Comment on above: The validity of the calculated GFR & GFRAA in patients over 70 years has not been determined. Clinical correlation is essential. Serum or plasma urea nitroge n measurement (mass/volume)Ordered By: Natalie Rodriguez on 11-24-2022 Urea nitrogen [Mass/Vol] 14 mg/dL 7-18 [facility] Thin prep Papanicolaou smear with manual screeningOrdered By: Natalie Rodriguez on 11-24-2022 Thin prep Papanicolaou smear with manual screening 19 U/L 15-37 [facility] Comment on above: Slight Hemolysis, Re sult may be falsely increased. Thin prep Papanicolaou smear with manual screening 8 5-15 [facility] Absolute lymphocyte countOrd ered By: Natalie Rodriguez on 08-14-2022 Lymphocytes Auto (Unsp spec) [#/Vol] 2.21 10*3/uL 0.83-4.51 [facility] Aldolase ser/plasOrdered By: Natalie Rodriguez on 08-14-2022 Aldolase [Catalytic activity/Vol] 5.1 mU/mL 3.3-10.3 [facility] Comment on above: Performed at: CB - L [address] [id number] Director: Harley Griffith PhD, Phone: [phone] Basophil percentageOrdered B y: Natalie Rodriguez on 08-14-2022 Basophils/100 WBC (Bld) 0.9 % 0-1 [facility] Bilirubin [Mass/Vol] 0.40 mg/dL 0.20-1.00 [facility] Comment on above: For patients on eltr ombopag therapy, use of Dimension [place] TBIL is not recommended. Chloride [Moles/Vol] 105 mmol/L 98-107 [facility] Eosinophils/100 WBC (Bld) 0.8 % 0-5 [facility] Glucose [Mass/Vol] 101 mg/dL 74-106 [facility] Comment on above: Fasting Glucose resu lt from 100 to 125 mg/dL suggests IMPAIRED HOMEOSTASIS per A.D.A. criteria. Neutrophils (Bld) [#/Vol] 5.7 10*3/uL 2.0-7.7 [facility] Neutrophils/100 WBC (Bld) 63.4 % 47-70 [facility] Potassium [Moles/Vol] 4.1 mmol/L 3.5-5.1 [facility] Protein [Mass/Vol] 8.4 g/dL 6.4-8.2 [facility] Sodium [Moles/Vol] 136 mmol/L 136-145 [facility] WBC (Bld) [#/Vol] 9.0 10*3/uL 4.4-11.0 [facility] Blood erythrocytes count (nu mber/volume)Ordered By: Natalie Rodriguez on 08-14-2022 RBC (Bld) [#/Vol] 4.56 10*6/uL 4.2-5.4 [facility] Blood hemoglobin measurement (mass/volume)Ordered By: Natalie Rodriguez on 08-14-2022 Hemoglobin (Bld) [Mass/Vol] 14.7 g/dL 12.0-15.0 [facility] Blood lymphocytes/100 leukoc ytesOrdered By: Natalie Rodriguez on 08-14-2022 Lymphocytes/100 WBC (Bld) 24.5 % 19-41 [facility] Blood monocytes/100 leukocyt esOrdered By: Natalie Rodriguez on 08-14-2022 Monocytes/100 WBC (Bld) 9.8 % 0-10 [facility] Blood platelet mean volumeOr dered By: Natalie Rodriguez on 08-14-2022 Platelet mean volume (Bld) [Entitic vol] 9.1 fL 6.2-12.0 [facility] Determination of erythrocyte mean corpuscular volume (MCV)Ordered By: Natalie Rodriguez on 08-14-2022 MCV (RBC) [Entitic vol] 95.0 fL 81-99 [facility] Hematocrit Auto (Bld) [Volum e fraction]Ordered By: Natalie Rodriguez on 08-14-2022 Hematocrit (Bld) [Volume fraction] 43.3 % 37-47 [facility] - Chemistry and C hemistry - challengeOrdered By: Natalie Jennifer on 08-14-2022 ALP [Catalytic activity/Vol] 93 U/L 45-117 [facility] ALT [Catalytic activity/Vol] 35 U/L 13-56 [facility] CK [Catalytic activity/Vol] 41 U/L 26-192 [facility] CO2 [Moles/Vol] 25.0 mmol/L 21.0-32.0 [facility] Globulin (S) [Mass/Vol] 4.7 g/dL 2.2-4.2 [facility] Urea nitrogen/Creatinine [Mass ratio] 14.2 mg/mg 10-20 [facility] - Hematology and Cell countsOrdered By: Natalie Rodriguez on 08-14-2022 Erythrocyte distribution width (RBC) [Entitic vol] 46.9 fL 35.1-43.9 [facility] Erythrocyte distribution width (RBC) [Ratio] 13.6 % 11.6-14.6 [facility] Immature granulocytes/100 WBC (Bld) 0.600 % 0.0-0.9 [facility] Comment on above: IG% - Immature Granu locytes (promyelocytes, myelocytes and metamyelocytes) > 1% indicates that a LEFT SHIFT is Present. MCH (RBC) [Entitic mass] 32.2 pg 27.0-32.0 [facility] Nucleated RBC/100 WBC (Bld) [Ratio] 0 % 0-5 [facility] MCHC Auto (RBC) [Mass/Vol]Or dered By: Natalie Rodriguez on 08-14-2022 MCHC (RBC) [Mass/Vol] 33.9 g/dL 32-36 [facility] No Panel InformationOrdered By: Natalie Rodriguez on 08-14-2022 Estimated GFR (MDRD) Amer 91 mL/min >60 [facility] Comment on above: GFR Calc Estimated GFR (MDRD) Non-Af Amer 75 mL/min >60 [facility] Comment on above: Non- GFR Calc Platelets bldOrdered By: Layne Rodriguez on 08-14-2022 Platelets (Bld) [#/Vol] 324 10*3/uL 150-450 [facility] Serum or plasma albumin nancy urement (mass/volume)Ordered By: Natalie Rodriguez on 08-14-2022 Albumin [Mass/Vol] 3.7 g/dL 3.2-5.0 [facility] Serum or plasma albumin/glob ulin mass ratioOrdered By: Natalie Rodriguez on 08-14-2022 Albumin/Globulin [Mass ratio] 0.8 {ratio} 0.9-2.4 [facility] Serum or plasma calcium nancy urement (mass/volume)Ordered By: Natalie Rodriguez on 08-14-2022 Calcium [Mass/Vol] 10.0 mg/dL 8.5-10.1 [facility] Serum or plasma creatinine m easurement (mass/volume)Ordered By: Natalie Rodriguez on 08-14-2022 Creatinine [Mass/Vol] 0.78 mg/dL 0.55-1.02 [facility] Comment on above: The validity of the calculated GFR & GFRAA in patients over 70 years has not been determined. Clinical correlation is essential. Serum or plasma urea nitroge n measurement (mass/volume)Ordered By: Natalie Rodriguez on 08-14-2022 Urea nitrogen [Mass/Vol] 11 mg/dL 7-18 [facility] Thin prep Papanicolaou smear with manual screeningOrdered By: Natalie Rodriguez on 08-14-2022 Thin prep Papanicolaou smear with manual screening 21 U/L 15-37 [facility] Thin prep Papanicolaou smear with manual screening 6 5-15 [facility] Laboratory - Chemistry and C hemistry - challengeOrdered By: Dr. Mane on 05-29-2022 Free T4 [Mass/Vol] 1.33 ng/dL 0.76-1.46 [facility] No Panel InformationOrdered By: Dr. Mane on 05-29-2022 Thyroid Stimulating Hormone (TSH) 3.70 uIU/mL 0.358-3.74 [facility] Absolute lymphocyte countOrd ered By: Dr. Babb on 04-12-2022 Lymphocytes Auto (Unsp spec) [#/Vol] 1.55 10*3/uL 0.83-4.51 [facility] Basophil percentageOrdered B y: Dr. Babb on 04-12-2022 Basophils/100 WBC (Bld) 0.8 % 0-1 [facility] Bilirubin [Mass/Vol] 0.40 mg/dL 0.20-1.00 [facility] Comment on above: For patients on eltr ombopag therapy, use of Dimension [place] TBIL is not recommended. Chloride [Moles/Vol] 107 mmol/L 98-107 [facility] Eosinophils/100 WBC (Bld) 0.4 % 0-5 [facility] Glucose [Mass/Vol] 103 mg/dL 74-106 [facility] Comment on above: Fasting Glucose resu lt from 100 to 125 mg/dL suggests IMPAIRED HOMEOSTASIS per A.D.A. criteria. Neutrophils (Bld) [#/Vol] 6.7 10*3/uL 2.0-7.7 [facility] Neutrophils/100 WBC (Bld) 71.0 % 47-70 [facility] Potassium [Moles/Vol] 3.9 mmol/L 3.5-5.1 [facility] Protein [Mass/Vol] 8.5 g/dL 6.4-8.2 [facility] Sodium [Moles/Vol] 136 mmol/L 136-145 [facility] WBC (Bld) [#/Vol] 9.5 10*3/uL 4.4-11.0 [facility] Blood erythrocytes count (nu mber/volume)Ordered By: Dr. Babb on 04-12-2022 RBC (Bld) [#/Vol] 4.43 10*6/uL 4.2-5.4 [facility] Blood hemoglobin measurement (mass/volume)Ordered By: Dr. Babb on 04-12-2022 Hemoglobin (Bld) [Mass/Vol] 14.5 g/dL 12.0-15.0 [facility] Blood lymphocytes/100 leukoc ytesOrdered By: Dr. Babb on 04-12-2022 Lymphocytes/100 WBC (Bld) 16.4 % 19-41 [facility] Blood monocytes/100 leukocyt esOrdered By: Dr. Babb on 04-12-2022 Monocytes/100 WBC (Bld) 10.4 % 0-10 [facility] Blood platelet mean volumeOr dered By: Dr. Babb on 04-12-2022 Platelet mean volume (Bld) [Entitic vol] 8.9 fL 6.2-12.0 [facility] Determination of erythrocyte mean corpuscular volume (MCV)Ordered By: Dr. Babb on 04-12-2022 MCV (RBC) [Entitic vol] 97.5 fL 81-99 [facility] Hematocrit Auto (Bld) [Volum e fraction]Ordered By: Dr. Babb on 04-12-2022 Hematocrit (Bld) [Volume fraction] 43.2 % 37-47 [facility] - Chemistry and C hemistry - challengeOrdered By: Dr. Babb on 04-12-2022 ALP [Catalytic activity/Vol] 77 U/L 45-117 [facility] ALT [Catalytic activity/Vol] 30 U/L 13-56 [facility] CO2 [Moles/Vol] 22.0 mmol/L 21.0-32.0 [facility] Globulin (S) [Mass/Vol] 4.8 g/dL 2.2-4.2 [facility] Urea nitrogen/Creatinine [Mass ratio] 28.4 mg/mg 10-20 [facility] - Hematology and Cell countsOrdered By: Dr. Babb on 04-12-2022 Erythrocyte distribution width (RBC) [Entitic vol] 56.2 fL 35.1-43.9 [facility] Erythrocyte distribution width (RBC) [Ratio] 15.7 % 11.6-14.6 [facility] Immature granulocytes/100 WBC (Bld) 1.000 % 0.0-0.9 [facility] Comment on above: IG% - Immature Granu locytes (promyelocytes, myelocytes and metamyelocytes) > 1% indicates that a LEFT SHIFT is Present. MCH (RBC) [Entitic mass] 32.7 pg 27.0-32.0 [facility] Nucleated RBC/100 WBC (Bld) [Ratio] 0 % 0-5 [facility] MCHC Auto (RBC) [Mass/Vol]Or dered By: Dr. Babb on 04-12-2022 MCHC (RBC) [Mass/Vol] 33.6 g/dL 32-36 [facility] No Panel InformationOrdered By: Dr. Babb on 04-12-2022 Estimated GFR (MDRD) Amer 91 mL/min >60 [facility] Comment on above: GFR Calc Estimated GFR (MDRD) Non-Af Amer 75 mL/min >60 [facility] Comment on above: Non- GFR Calc Hepatitis C Antibody Non-Reactive Nonreactive [facility] Comment on above: Non Reactive: < 0.8 Equivocal: >/= 0.8 to < 1.0 Reactive: >/= 1.0The CDC recommends that a reactive/equivocal HCV antibody result be followed up by the HCV Nucleic Acid Amplificationtest ([id number]) Thyroid Stimulating Hormone (TSH) 14.60 uIU/mL 0.358-3.74 [facility] Vitamin D 25-Hydroxy 51.2 ng/mL [facility] Comment on above: Vitamin D 25(OH) Sta tus Range Deficiency <20 ng/mL (50nmol/L) Insufficiency 20 - 30 ng/mL (50 - 75 nmol/L) Sufficiency 30 - 100 ng/mL (75 - 250 nmol/L) Toxicity >100 ng/mL (>250 nmol/L) Platelets bldOrdered By: Dr. Babb on 04-12-2022 Platelets (Bld) [#/Vol] 340 10*3/uL 150-450 [facility] Serum or plasma albumin nancy urement (mass/volume)Ordered By: Dr. Babb on 04-12-2022 Albumin [Mass/Vol] 3.7 g/dL 3.2-5.0 [facility] Serum or plasma albumin/glob ulin mass ratioOrdered By: Dr. Babb on 04-12-2022 Albumin/Globulin [Mass ratio] 0.8 {ratio} 0.9-2.4 [facility] [facility] Serum or plasma calcium nancy urement (mass/volume)Ordered By: Dr. Babb on 04-12-2022 Calcium [Mass/Vol] 9.7 mg/dL 8.5-10.1 [facility] Serum or plasma creatinine m easurement (mass/volume)Ordered By: Dr. Babb on 04-12-2022 Creatinine [Mass/Vol] 0.77 mg/dL 0.55-1.02 [facility] Comment on above: The validity of the calculated GFR & GFRAA in patients over 70 years has not been determined. Clinical correlation is essential. Serum or plasma urea nitroge n measurement (mass/volume)Ordered By: Dr. Babb on 04-12-2022 Urea nitrogen [Mass/Vol] 22 mg/dL 7-18 [facility] Thin prep Papanicolaou smear with manual screeningOrdered By: Dr. Babb on 04-12-2022 Thin prep Papanicolaou smear with manual screening 15 U/L 15-37 [facility] Thin prep Papanicolaou smear with manual screening 7 5-15 [facility] Basophil percentageOrdered B y: Brennan Dillard on 02-20-2022 Bilirubin [Mass/Vol] 0.30 mg/dL 0.20-1.00 [facility] Comment on above: For patients on eltr ombopag therapy, use of Dimension [place] TBIL is not recommended. Chloride [Moles/Vol] 105 mmol/L 98-107 [facility] Cholesterol [Mass/Vol] 138 mg/dL <200 [facility] Comment on above: <200 mg/dL Desirable 200-240 mg/dL Borderline >240 mg/dL High Risk Glucose [Mass/Vol] 93 mg/dL 74-106 [facility] Potassium [Moles/Vol] 4.0 mmol/L 3.5-5.1 [facility] Comment on above: Slight Hemolysis, Re sult may be falsely increased. Protein [Mass/Vol] 7.4 g/dL 6.4-8.2 [facility] Sodium [Moles/Vol] 141 mmol/L 136-145 [facility] Triglyceride [Mass/Vol] 118 mg/dL <199 [facility] Comment on above: The drugs N-Acetylcy steine and Metamizole may falsely depress this assay.Serum Triglycerides Reference Interval Normal <150 mg/dL Borderline high 150 - 199 mg/dL High 200 - 499 mg/dL Very High > or = 500 mg/dL WBC (Bld) [#/Vol] 7.0 10*3/uL 4.4-11.0 [facility] Blood erythrocytes count (nu mber/volume)Ordered By: Brennan Dillard on 02-20-2022 RBC (Bld) [#/Vol] 4.59 10*6/uL 4.2-5.4 [facility] Blood hemoglobin measurement (mass/volume)Ordered By: Brennan Dillard on 02-20-2022 Hemoglobin (Bld) [Mass/Vol] 14.4 g/dL 12.0-15.0 [facility] Blood platelet mean volumeOr dered By: Brennan Dillard on 02-20-2022 Platelet mean volume (Bld) [Entitic vol] 8.9 fL 6.2-12.0 [facility] Determination of erythrocyte mean corpuscular volume (MCV)Ordered By: Brennan Dillard on 02-20-2022 MCV (RBC) [Entitic vol] 96.5 fL 81-99 [facility] Hematocrit Auto (Bld) [Volum e fraction]Ordered By: Brennan Dillard on 02-20-2022 Hematocrit (Bld) [Volume fraction] 44.3 % 37-47 [facility] Laboratory - Chemistry and C hemistry - challengeOrdered By: Brennan Dillard on 02-20-2022 ALP [Catalytic activity/Vol] 98 U/L 45-117 [facility] ALT [Catalytic activity/Vol] 32 U/L 13-56 [facility] CK [Catalytic activity/Vol] 40 U/L 26-192 [facility] CO2 [Moles/Vol] 25.0 mmol/L 21.0-32.0 [facility] Globulin (S) [Mass/Vol] 4.1 g/dL 2.2-4.2 [facility] Urea nitrogen/Creatinine [Mass ratio] 27.6 mg/mg 10-20 [facility] Laboratory - Hematology and Cell countsOrdered By: Brennan Dillard on 02-20-2022 Erythrocyte distribution width (RBC) [Entitic vol] 56.3 fL 35.1-43.9 [facility] Erythrocyte distribution width (RBC) [Ratio] 15.8 % 11.6-14.6 [facility] MCH (RBC) [Entitic mass] 31.4 pg 27.0-32.0 [facility] MCHC Auto (RBC) [Mass/Vol]Or dered By: Brennan Dillard on 02-20-2022 MCHC (RBC) [Mass/Vol] 32.5 g/dL 32-36 [facility] No Panel InformationOrdered By: Brennan Dillard on 02-20-2022 Estimated GFR (MDRD) Amer 137 mL/min >60 [facility] Comment on above: GFR Calc Estimated GFR (MDRD) Non-Af Amer 113 mL/min >60 [facility] Comment on above: Non- GFR Calc Platelets bldOrdered By: Hilary Dillard on 02-20-2022 Platelets (Bld) [#/Vol] 297 10*3/uL 150-450 [facility] Serum or plasma albumin nancy urement (mass/volume)Ordered By: Brennan Dillard on 02-20-2022 Albumin [Mass/Vol] 3.3 g/dL 3.2-5.0 [facility] Serum or plasma albumin/glob ulin mass ratioOrdered By: Brennan Dillard on 02-20-2022 Albumin/Globulin [Mass ratio] 0.8 {ratio} 0.9-2.4 [facility] Serum or plasma calcium nancy urement (mass/volume)Ordered By: Brennan Dillard on 02-20-2022 Calcium [Mass/Vol] 9.1 mg/dL 8.5-10.1 [facility] Serum or plasma cholesterol in HDL measurement (mass/volume)Ordered By: Brennan Dillard on 02-20-2022 Cholesterol in HDL [Mass/Vol] 54 mg/dL >40 [facility] Comment on above: The drugs N-Acetylcy steine and Metamizole may falsely depress this assay. Reference Range HDL <40 mg/dL Low HDL Cholesterol HDL >or= 60 mg/dL High HDL Cholesterol Serum or plasma cholesterol in VLDL measurement (mass/volume)Ordered By: Brennan Dillard on 02-20-2022 Cholesterol in VLDL [Mass/Vol] 24 mg/dL 5-40 [facility] Serum or plasma creatinine m easurement (mass/volume)Ordered By: Brennan Dillard on 02-20-2022 Creatinine [Mass/Vol] 0.54 mg/dL 0.55-1.02 [facility] Comment on above: The validity of the calculated GFR & GFRAA in patients over 70 years has not been determined. Clinical correlation is essential. Serum or plasma low density lipoprotein (LDL) cholesterol measurement (mass/volume)Ordered By: Brennan Dillard on 02-20-2022 Cholesterol in LDL [Mass/Vol] 60 mg/dL 0-130 [facility] Serum or plasma urea nitroge n measurement (mass/volume)Ordered By: Brennan Dillard on 02-20-2022 Urea nitrogen [Mass/Vol] 15 mg/dL 7-18 [facility] Thin prep Papanicolaou smear with manual screeningOrdered By: Brennan Dillard on 02-20-2022 Thin prep Papanicolaou smear with manual screening 17 U/L 15-37 [facility] Comment on above: Slight Hemolysis, Re sult may be falsely increased. Thin prep Papanicolaou smear with manual screening 11 5-15 [facility] Progress Noteon 02-04-2022 Progress Note See Scanned Progress Notes Normal [facility] Absolute lymphocyte countOrd ered By: Dr. Babb on 01-25-2022 Lymphocytes Auto (Unsp spec) [#/Vol] 1.36 10*3/uL 0.83-4.51 [facility] Basophil percentageOrdered B y: Dr. Babb on 01-25-2022 Basophils/100 WBC (Bld) 1.4 % 0-1 [facility] Chloride [Moles/Vol] 108 mmol/L 98-107 [facility] Eosinophils/100 WBC (Bld) 2.0 % 0-5 [facility] Glucose [Mass/Vol] 92 mg/dL 74-106 [facility] Neutrophils (Bld) [#/Vol] 4.1 10*3/uL 2.0-7.7 [facility] Neutrophils/100 WBC (Bld) 63.9 % 47-70 [facility] Potassium [Moles/Vol] 3.7 mmol/L 3.5-5.1 [facility] Sodium [Moles/Vol] 140 mmol/L 136-145 [facility] WBC (Bld) [#/Vol] 6.4 10*3/uL 4.4-11.0 [facility] Blood erythrocytes count (nu mber/volume)Ordered By: Dr. Babb on 01-25-2022 RBC (Bld) [#/Vol] 4.12 10*6/uL 4.2-5.4 [facility] Blood hemoglobin measurement (mass/volume)Ordered By: Dr. Babb on 01-25-2022 Hemoglobin (Bld) [Mass/Vol] 13.2 g/dL 12.0-15.0 [facility] Blood lymphocytes/100 leukoc ytesOrdered By: Dr. Babb on 01-25-2022 Lymphocytes/100 WBC (Bld) 21.2 % 19-41 [facility] Blood monocytes/100 leukocyt esOrdered By: Dr. Babb on 01-25-2022 Monocytes/100 WBC (Bld) 10.9 % 0-10 [facility] Blood platelet mean volumeOr dered By: Dr. Babb on 01-25-2022 Platelet mean volume (Bld) [Entitic vol] 8.7 fL 6.2-12.0 [facility] Determination of erythrocyte mean corpuscular volume (MCV)Ordered By: Dr. Babb on 01-25-2022 MCV (RBC) [Entitic vol] 95.1 fL 81-99 [facility] Hematocrit Auto (Bld) [Volum e fraction]Ordered By: Dr. Babb on 01-25-2022 Hematocrit (Bld) [Volume fraction] 39.2 % 37-47 [facility] Laboratory - Chemistry and C hemistry - challengeOrdered By: Dr. Babb on 01-25-2022 CO2 [Moles/Vol] 26.0 mmol/L 21.0-32.0 [facility] Urea nitrogen/Creatinine [Mass ratio] 23.2 mg/mg 10-20 [facility] Laboratory - Hematology and Cell countsOrdered By: Dr. Babb on 01-25-2022 Erythrocyte distribution width (RBC) [Entitic vol] 58.6 fL 35.1-43.9 [facility] Erythrocyte distribution width (RBC) [Ratio] 16.9 % 11.6-14.6 [facility] Immature granulocytes/100 WBC (Bld) 0.600 % 0.0-0.9 [facility] Comment on above: IG% - Immature Granu locytes (promyelocytes, myelocytes and metamyelocytes) > 1% indicates that a LEFT SHIFT is Present. MCH (RBC) [Entitic mass] 32.0 pg 27.0-32.0 [facility] Nucleated RBC/100 WBC (Bld) [Ratio] 0 % 0-5 [facility] MCHC Auto (RBC) [Mass/Vol]Or dered By: Dr. Babb on 01-25-2022 MCHC (RBC) [Mass/Vol] 33.7 g/dL 32-36 [facility] No Panel InformationOrdered By: Dr. Babb on 01-25-2022 Estimated Creatinine Clearance Calc 29.54 ml/min [facility] Estimated GFR (MDRD) Amer 145 mL/min >60 [facility] Comment on above: GFR Calc Estimated GFR (MDRD) Non-Af Amer 120 mL/min >60 [facility] Comment on above: Non- GFR Calc Platelets bldOrdered By: Dr. Babb on 01-25-2022 Platelets (Bld) [#/Vol] 255 10*3/uL 150-450 [facility] Serum or plasma calcium nancy urement (mass/volume)Ordered By: Dr. Babb on 01-25-2022 Calcium [Mass/Vol] 8.7 mg/dL 8.5-10.1 [facility] Serum or plasma creatinine m easurement (mass/volume)Ordered By: Dr. Babb on 01-25-2022 Creatinine [Mass/Vol] 0.52 mg/dL 0.55-1.02 [facility] Comment on above: The validity of the calculated GFR & GFRAA in patients over 70 years has not been determined. Clinical correlation is essential. Serum or plasma urea nitroge n measurement (mass/volume)Ordered By: Dr. Babb on 01-25-2022 Urea nitrogen [Mass/Vol] 12 mg/dL 7-18 [facility] Thin prep Papanicolaou smear with manual screeningOrdered By: Dr. Babb on 01-25-2022 Thin prep Papanicolaou smear with manual screening 6 5-15 [facility] Basophil percentageon 2021 Chloride [Moles/Vol] 109 mmol/L 98-107 [facility] Work Phone: Glucose [Mass/Vol] 100 mg/dL 74-106 [facility] Work Phone: Comment on above: Fasting Glucose resu lt from 100 to 125 mg/dL suggests IMPAIRED HOMEOSTASIS per A.D.A. criteria. Potassium [Moles/Vol] 3.7 mmol/L 3.5-5.1 [facility] Work Phone: Sodium [Moles/Vol] 139 mmol/L 136-145 [facility] Work Phone: Laboratory - Chemistry and C hemistry - challengeon 01-19-2022 CO2 [Moles/Vol] 23.0 mmol/L 21.0-32.0 [facility] Work Phone: Urea nitrogen/Creatinine [Mass ratio] 22.9 mg/mg 10-20 [facility] Work Phone: No Panel Informationon 01-19 Estimated Creatinine Clearance Calc 29.54 ml/min [facility] Work Phone: Estimated GFR (MDRD) Amer 130 mL/min >60 [facility] Work Phone: Comment on above: GFR Calc Estimated GFR (MDRD) Non-Af Amer 108 mL/min >60 [facility] Work Phone: Comment on above: Non- GFR Calc Serum or plasma calcium nancy urement (mass/volume)on 01-19-2022 Calcium [Mass/Vol] 9.0 mg/dL 8.5-10.1 [facility] Work Phone: Serum or plasma creatinine m easurement (mass/volume)on 01-19-2022 Creatinine [Mass/Vol] 0.57 mg/dL 0.55-1.02 [facility] Work Phone: Comment on above: The validity of the calculated GFR & GFRAA in patients over 70 years has not been determined. Clinical correlation is essential. Serum or plasma urea nitroge n measurement (mass/volume)on 01-19-2022 Urea nitrogen [Mass/Vol] 13 mg/dL 7-18 [facility] Work Phone: Thin prep Papanicolaou smear with manual screeningon 01-19-2022 Thin prep Papanicolaou smear with manual screening 7 5-15 [facility] Work Phone: Absolute lymphocyte counton 01-18-2022 Lymphocytes Auto (Unsp spec) [#/Vol] 1.64 10*3/uL 0.83-4.51 [facility] Work Phone: Basophil percentageon 2021 Basophils/100 WBC (Bld) 1.0 % 0-1 [facility] Work Phone: Eosinophils/100 WBC (Bld) 1.9 % 0-5 [facility] Work Phone: Neutrophils (Bld) [#/Vol] 5.4 10*3/uL 2.0-7.7 [facility] Work Phone: Neutrophils/100 WBC (Bld) 66.6 % 47-70 [facility] Work Phone: WBC (Bld) [#/Vol] 8.0 10*3/uL 4.4-11.0 [facility] Work Phone: Blood erythrocytes count (nu mber/volume)on 01-18-2022 RBC (Bld) [#/Vol] 4.27 10*6/uL 4.2-5.4 [facility] Work Phone: [phone] Blood hemoglobin measurement (mass/volume)on 01-18-2022 Hemoglobin (Bld) [Mass/Vol] 13.0 g/dL 12.0-15.0 [facility] Work Phone: [phone] Blood lymphocytes/100 leukoc yteson 01-18-2022 Lymphocytes/100 WBC (Bld) 20.4 % 19-41 [facility] Work Phone: [phone] Blood monocytes/100 leukocyt eson 01-18-2022 Monocytes/100 WBC (Bld) 9.5 % 0-10 [facility] Work Phone: [phone] Blood platelet mean volumeon 01-18-2022 Platelet mean volume (Bld) [Entitic vol] 9.1 fL 6.2-12.0 [facility] Work Phone: [phone] Determination of erythrocyte mean corpuscular volume (MCV)on 01-18-2022 MCV (RBC) [Entitic vol] 95.3 fL 81-99 [facility] Work Phone: [phone] Hematocrit Auto (Bld) [Volum e fraction]on 01-18-2022 Hematocrit (Bld) [Volume fraction] 40.7 % 37-47 [facility] Work Phone: [phone] Laboratory - Hematology and Cell countson 01-18-2022 Erythrocyte distribution width (RBC) [Entitic vol] 58.4 fL 35.1-43.9 [facility] Work Phone: [phone] Erythrocyte distribution width (RBC) [Ratio] 16.6 % 11.6-14.6 [facility] Work Phone: [phone] Immature granulocytes/100 WBC (Bld) 0.600 % 0.0-0.9 [facility] Work Phone: [phone] Comment on above: IG% - Immature Granu locytes (promyelocytes, myelocytes and metamyelocytes) > 1% indicates that a LEFT SHIFT is Present. MCH (RBC) [Entitic mass] 30.4 pg 27.0-32.0 [facility] Work Phone: [phone] Nucleated RBC/100 WBC (Bld) [Ratio] 0 % 0-5 [facility] Work Phone: MCHC Auto (RBC) [Mass/Vol]on 01-18-2022 MCHC (RBC) [Mass/Vol] 31.9 g/dL 32-36 [facility] Work Phone: Platelets bldon 01-18-2022 Platelets (Bld) [#/Vol] 299 10*3/uL 150-450 [facility] Work Phone: COVID-19 virus antigen assay Ordered By: Dr. Babb on 01-07-2022 SARS-CoV-2 (COVID-19) Ag IA.rapid Ql (Resp) [facility] Absolute lymphocyte countOrd ered By: Dr. Mooney on 01-03-2022 Lymphocytes Auto (Unsp spec) [#/Vol] 1.11 10*3/uL 0.83-4.51 [facility] Basophil percentageOrdered B y: Dr. Mooney on 01-03-2022 Basophils/100 WBC (Bld) 0.9 % 0-1 [facility] Chloride [Moles/Vol] 106 mmol/L 98-107 [facility] Eosinophils/100 WBC (Bld) 2.8 % 0-5 [facility] Glucose [Mass/Vol] 104 mg/dL 74-106 [facility] Comment on above: Fasting Glucose resu lt from 100 to 125 mg/dL suggests IMPAIRED HOMEOSTASIS per A.D.A. criteria. Neutrophils (Bld) [#/Vol] 4.6 10*3/uL 2.0-7.7 [facility] Neutrophils/100 WBC (Bld) 69.0 % 47-70 [facility] Potassium [Moles/Vol] 4.0 mmol/L 3.5-5.1 [facility] Sodium [Moles/Vol] 137 mmol/L 136-145 [facility] WBC (Bld) [#/Vol] 6.7 10*3/uL 4.4-11.0 [facility] Blood erythrocytes count (nu mber/volume)Ordered By: Dr. Mooney on 01-03-2022 RBC (Bld) [#/Vol] 4.44 10*6/uL 4.2-5.4 [facility] Blood hemoglobin measurement (mass/volume)Ordered By: Dr. Mooney on 01-03-2022 Hemoglobin (Bld) [Mass/Vol] 13.7 g/dL 12.0-15.0 [facility] Blood lymphocytes/100 leukoc ytesOrdered By: Dr. Mooney on 01-03-2022 Lymphocytes/100 WBC (Bld) 16.5 % 19-41 [facility] Blood monocytes/100 leukocyt esOrdered By: Dr. Mooney on 01-03-2022 Monocytes/100 WBC (Bld) 10.4 % 0-10 [facility] Blood platelet mean volumeOr dered By: Dr. Mooney on 01-03-2022 Platelet mean volume (Bld) [Entitic vol] 9.4 fL 6.2-12.0 [facility] COVID-19 virus antigen assay Ordered By: Dr. Schneider on 01-03-2022 SARS-CoV-2 (COVID-19) Ag IA.rapid Ql (Resp) [facility] Determination of erythrocyte mean corpuscular volume (MCV)Ordered By: Dr. Mooney on 01-03-2022 MCV (RBC) [Entitic vol] 96.4 fL 81-99 [facility] Hematocrit Auto (Bld) [Volum e fraction]Ordered By: Dr. Mooney on 01-03-2022 Hematocrit (Bld) [Volume fraction] 42.8 % 37-47 [facility] Laboratory - Chemistry and C hemistry - challengeOrdered By: Dr. Mooney on 01-03-2022 CO2 [Moles/Vol] 25.0 mmol/L 21.0-32.0 [facility] Urea nitrogen/Creatinine [Mass ratio] 14.7 mg/mg 10-20 [facility] Laboratory - Hematology and Cell countsOrdered By: Dr. Mooney on 01-03-2022 Erythrocyte distribution width (RBC) [Entitic vol] 62.4 fL 35.1-43.9 [facility] Erythrocyte distribution width (RBC) [Ratio] 17.6 % 11.6-14.6 [facility] Immature granulocytes/100 WBC (Bld) 0.400 % 0.0-0.9 [facility] Comment on above: IG% - Immature Granu locytes (promyelocytes, myelocytes and metamyelocytes) > 1% indicates that a LEFT SHIFT is Present. MCH (RBC) [Entitic mass] 30.9 pg 27.0-32.0 [facility] Nucleated RBC/100 WBC (Bld) [Ratio] 0 % 0-5 [facility] MCHC Auto (RBC) [Mass/Vol]Or dered By: Dr. Mooney on 01-03-2022 MCHC (RBC) [Mass/Vol] 32.0 g/dL 32-36 [facility] No Panel InformationOrdered By: Dr. Mooney on 01-03-2022 Estimated Creatinine Clearance Calc 29.54 ml/min [facility] Estimated GFR (MDRD) Amer 159 mL/min >60 [facility] Comment on above: GFR Calc Estimated GFR (MDRD) Non-Af Amer 132 mL/min >60 [facility] Comment on above: Non- GFR Calc Platelets bldOrdered By: Dr. Mooney on 01-03-2022 Platelets (Bld) [#/Vol] 280 10*3/uL 150-450 [facility] Serum or plasma calcium nancy urement (mass/volume)Ordered By: Dr. Mooney on 01-03-2022 Calcium [Mass/Vol] 8.9 mg/dL 8.5-10.1 [facility] Serum or plasma creatinine m easurement (mass/volume)Ordered By: Dr. Mooney on 01-03-2022 Creatinine [Mass/Vol] 0.48 mg/dL 0.55-1.02 [facility] Comment on above: The validity of the calculated GFR & GFRAA in patients over 70 years has not been determined. Clinical correlation is essential. Serum or plasma urea nitroge n measurement (mass/volume)Ordered By: Dr. Mooney on 01-03-2022 Urea nitrogen [Mass/Vol] 7 mg/dL 7-18 [facility] Thin prep Papanicolaou smear with manual screeningOrdered By: Dr. Mooney on 01-03-2022 Thin prep Papanicolaou smear with manual screening 6 5-15 [facility] Absolute lymphocyte counton 01-02-2022 Lymphocytes Auto (Unsp spec) [#/Vol] 1.13 10*3/uL 0.83-4.51 [facility] Work Phone: Basophil percentageon 2021 Basophils/100 WBC (Bld) 0.6 % 0-1 [facility] Work Phone: Chloride [Moles/Vol] 102 mmol/L 98-107 [facility] Work Phone: Eosinophils/100 WBC (Bld) 1.1 % 0-5 [facility] Work Phone: Glucose [Mass/Vol] 153 mg/dL 74-106 [facility] Work Phone: Comment on above: Fasting Glucose resu lt greater than or equal to 126 mg/dL suggests DIABETES MELLITUS per A.D.A. criteria. Neutrophils (Bld) [#/Vol] 4.5 10*3/uL 2.0-7.7 [facility] Work Phone: Neutrophils/100 WBC (Bld) 70.9 % 47-70 [facility] Work Phone: Potassium [Moles/Vol] 3.0 mmol/L 3.5-5.1 [facility] Work Phone: Sodium [Moles/Vol] 134 mmol/L 136-145 [facility] Work Phone: WBC (Bld) [#/Vol] 6.4 10*3/uL 4.4-11.0 [facility] Work Phone: Basophil percentageOrdered B y: Dr. Mooney on 01-02-2022 Cholesterol [Mass/Vol] 143 mg/dL <200 [facility] Comment on above: <200 mg/dL Desirable 200-240 mg/dL Borderline >240 mg/dL High Risk Triglyceride [Mass/Vol] 67 mg/dL <199 [facility] Comment on above: The drugs N-Acetylcy steine and Metamizole may falsely depress this assay.Serum Triglycerides Reference Interval Normal <150 mg/dL Borderline high 150 - 199 mg/dL High 200 - 499 mg/dL Very High > or = 500 mg/dL Blood erythrocytes count (nu mber/volume)on 01-02-2022 RBC (Bld) [#/Vol] 3.95 10*6/uL 4.2-5.4 [facility] Work Phone: Blood hemoglobin measurement (mass/volume)on 01-02-2022 Hemoglobin (Bld) [Mass/Vol] 12.1 g/dL 12.0-15.0 [facility] Work Phone: Blood lymphocytes/100 leukoc yteson 01-02-2022 Lymphocytes/100 WBC (Bld) 17.8 % 19-41 [facility] Work Phone: Blood monocytes/100 leukocyt eson 01-02-2022 Monocytes/100 WBC (Bld) 8.8 % 0-10 [facility] Work Phone: Blood platelet mean volumeon 01-02-2022 Platelet mean volume (Bld) [Entitic vol] 9.1 fL 6.2-12.0 [facility] Work Phone: Determination of erythrocyte mean corpuscular volume (MCV)on 01-02-2022 MCV (RBC) [Entitic vol] 93.7 fL 81-99 [facility] Work Phone: Glucose Glucometer (BldC) [M ass/Vol]Ordered By: Dr. Mooney on 01-02-2022 Glucose [Mass/Vol] 140 mg/dL 74-106 [facility] Comment on above: MANAGEMENT OF PATIEN T CARE PER NURSING PROTOCOL Glucose Glucometer (BldC) [M ass/Vol]on 01-02-2022 Glucose [Mass/Vol] 154 mg/dL 74-106 [facility] Work Phone: Comment on above: MANAGEMENT OF PATIEN T CARE PER NURSING PROTOCOL Hematocrit Auto (Bld) [Volum e fraction]on 01-02-2022 Hematocrit (Bld) [Volume fraction] 37.0 % 37-47 [facility] Work Phone: INR in Blood by Coagulation assayOrdered By: Dr. Trinh on 01-02-2022 INR Coag (Bld) [Relative time] 1.1 {INR} [facility] Laboratory - Chemistry and C hemistry - challengeon 01-02-2022 CO2 [Moles/Vol] 24.0 mmol/L 21.0-32.0 [facility] Work Phone: [phone] Urea nitrogen/Creatinine [Mass ratio] 21.6 mg/mg 10-20 [facility] Work Phone: [phone] Laboratory - CoagulationOrde red By: Dr. Trinh on 01-02-2022 aPTT Coag (Bld) [Time] 25.3 s 24.1-36.2 [facility] PT Coag (PPP) [Time] 14.3 s 11.7-14.9 [facility] Laboratory - Hematology and Cell countson 01-02-2022 Erythrocyte distribution width (RBC) [Entitic vol] 59.2 fL 35.1-43.9 [facility] Work Phone: [phone] Erythrocyte distribution width (RBC) [Ratio] 17.1 % 11.6-14.6 [facility] Work Phone: [phone] Immature granulocytes/100 WBC (Bld) 0.800 % 0.0-0.9 [facility] Work Phone: [phone] Comment on above: IG% - Immature Granu locytes (promyelocytes, myelocytes and metamyelocytes) > 1% indicates that a LEFT SHIFT is Present. MCH (RBC) [Entitic mass] 30.6 pg 27.0-32.0 [facility] Work Phone: [phone] Nucleated RBC/100 WBC (Bld) [Ratio] 0 % 0-5 [facility] Work Phone: [phone] MCHC Auto (RBC) [Mass/Vol]on 01-02-2022 MCHC (RBC) [Mass/Vol] 32.7 g/dL 32-36 [facility] Work Phone: [phone] Panel Informationon 01-02 Estimated Creatinine Clearance Calc 29.54 ml/min [facility] Work Phone: Estimated GFR (MDRD) Amer 121 mL/min >60 [facility] Work Phone: Comment on above: GFR Calc Estimated GFR (MDRD) Non-Af Amer 100 mL/min >60 [facility] Work Phone: Comment on above: Non- GFR Calc No Panel InformationOrdered By: Dr. Trinh on 01-02-2022 Troponin I High Sensitivity 23 pg/mL 3.0-54.0 [facility] Comment on above: Please Note: New Jacqueline t Units and Gender Specific Reference Ranges. For more information see Policy Stat Procedure [place] High Sensitivity Troponin (TNIH) and attachments. Platelets bldon 01-02-2022 Platelets (Bld) [#/Vol] 251 10*3/uL 150-450 [facility] Work Phone: Serum or plasma calcium nancy urement (mass/volume)on 01-02-2022 Calcium [Mass/Vol] 8.2 mg/dL 8.5-10.1 [facility] Work Phone: Serum or plasma cholesterol in HDL measurement (mass/volume)Ordered By: Dr. Mooney on 01-02-2022 Cholesterol in HDL [Mass/Vol] 47 mg/dL >40 [facility] Comment on above: The drugs N-Acetylcy steine and Metamizole may falsely depress this assay. Reference Range HDL <40 mg/dL Low HDL Cholesterol HDL >or= 60 mg/dL High HDL Cholesterol Serum or plasma cholesterol in VLDL measurement (mass/volume)Ordered By: Dr. Mooney on 01-02-2022 Cholesterol in VLDL [Mass/Vol] 13 mg/dL 5-40 [facility] Serum or plasma creatinine m easurement (mass/volume)on 01-02-2022 Creatinine [Mass/Vol] 0.60 mg/dL 0.55-1.02 [facility] Work Phone: Comment on above: The validity of the calculated GFR & GFRAA in patients over 70 years has not been determined. Clinical correlation is essential. Serum or plasma low density lipoprotein (LDL) cholesterol measurement (mass/volume)Ordered By: Dr. Mooney on 01-02-2022 Cholesterol in LDL [Mass/Vol] 83 mg/dL 0-130 [facility] Serum or plasma urea nitroge n measurement (mass/volume)on 01-02-2022 Urea nitrogen [Mass/Vol] 13 mg/dL 7-18 [facility] Work Phone: Thin prep Papanicolaou smear with manual screeningon 01-02-2022 Thin prep Papanicolaou smear with manual screening 8 5-15 [facility] Work Phone: Whole blood hemoglobin A1c/t otal hemoglobin ratio (mass fraction)Ordered By: Dr. Mooney on 01-02-2022 HbA1c (Bld) [Mass fraction] 5.2 % 3.8-5.6 [facility] Comment on above: Normal < 5.7 % Predi abetic 5.7 - 6.4 % Diabetic >or= 6.5 % Please note range changes. Absolute lymphocyte counton 10-21-2021 Lymphocytes Auto (Unsp spec) [#/Vol] 1.54 10*3/uL 0.83-4.51 [facility] Work Phone: Basophil percentageon 2021 Basophils/100 WBC (Bld) 1.0 % 0-1 [facility] Work Phone: Bilirubin [Mass/Vol] 0.40 mg/dL 0.20-1.00 [facility] Work Phone: Comment on above: For patients on eltr ombopag therapy, use of Dimension [place] TBIL is not recommended. Chloride [Moles/Vol] 107 mmol/L 98-107 [facility] Work Phone: Eosinophils/100 WBC (Bld) 1.2 % 0-5 [facility] Work Phone: Glucose [Mass/Vol] 101 mg/dL 74-106 [facility] Work Phone: Comment on above: Fasting Glucose resu lt from 100 to 125 mg/dL suggests IMPAIRED HOMEOSTASIS per A.D.A. criteria. Neutrophils (Bld) [#/Vol] 3.2 10*3/uL 2.0-7.7 [facility] Work Phone: Neutrophils/100 WBC (Bld) 55.8 % 47-70 [facility] Work Phone: Potassium [Moles/Vol] 3.6 mmol/L 3.5-5.1 [facility] Work Phone: Protein [Mass/Vol] 7.8 g/dL 6.4-8.2 [facility] Work Phone: Sodium [Moles/Vol] 141 mmol/L 136-145 [facility] Work Phone: WBC (Bld) [#/Vol] 5.8 10*3/uL 4.4-11.0 [facility] Work Phone: [phone] Blood erythrocytes count (nu mber/volume)on 10-21-2021 RBC (Bld) [#/Vol] 4.70 10*6/uL 4.2-5.4 [facility] Work Phone: [phone] Blood hemoglobin measurement (mass/volume)on 10-21-2021 Hemoglobin (Bld) [Mass/Vol] 13.4 g/dL 12.0-15.0 [facility] Work Phone: Blood lymphocytes/100 leukoc yteson 10-21-2021 Lymphocytes/100 WBC (Bld) 26.5 % 19-41 [facility] Work Phone: [phone] Blood monocytes/100 leukocyt eson 10-21-2021 Monocytes/100 WBC (Bld) 15.0 % 0-10 [facility] Work Phone: Blood platelet mean volumeon 10-21-2021 Platelet mean volume (Bld) [Entitic vol] 9.4 fL 6.2-12.0 [facility] Work Phone: Determination of erythrocyte mean corpuscular volume (MCV)on 10-21-2021 MCV (RBC) [Entitic vol] 88.1 fL 81-99 [facility] Work Phone: Hematocrit Auto (Bld) [Volum e fraction]on 10-21-2021 Hematocrit (Bld) [Volume fraction] 41.4 % 37-47 [facility] Work Phone: [phone] Laboratory - Chemistry and C hemistry - challengeon 10-21-2021 ALP [Catalytic activity/Vol] 57 U/L 45-117 [facility] Work Phone: [phone] ALT [Catalytic activity/Vol] 23 U/L 13-56 [facility] Work Phone: [phone] CK [Catalytic activity/Vol] 73 U/L 26-192 [facility] Work Phone: [phone] CO2 [Moles/Vol] 25.0 mmol/L 21.0-32.0 [facility] Work Phone: [phone] Globulin (S) [Mass/Vol] 4.1 g/dL 2.2-4.2 [facility] Work Phone: [phone] Urea nitrogen/Creatinine [Mass ratio] 18.5 mg/mg 10-20 [facility] Work Phone: [phone] Laboratory - Hematology and Cell countson 10-21-2021 Erythrocyte distribution width (RBC) [Entitic vol] 53.2 fL 35.1-43.9 [facility] Work Phone: [phone] Erythrocyte distribution width (RBC) [Ratio] 17.1 % 11.6-14.6 [facility] Work Phone: [phone] Immature granulocytes/100 WBC (Bld) 0.500 % 0.0-0.9 [facility] Work Phone: [phone] Comment on above: IG% - Immature Granu locytes (promyelocytes, myelocytes and metamyelocytes) > 1% indicates that a LEFT SHIFT is Present. MCH (RBC) [Entitic mass] 28.5 pg 27.0-32.0 [facility] Work Phone: [phone] Nucleated RBC/100 WBC (Bld) [Ratio] 0 % 0-5 [facility] Work Phone: [phone] MCHC Auto (RBC) [Mass/Vol]on 10-21-2021 MCHC (RBC) [Mass/Vol] 32.4 g/dL 32-36 [facility] Work Phone: No Panel Informationon 10-21 Estimated GFR (MDRD) Amer 112 mL/min >60 [facility] Work Phone: Comment on above: GFR Calc Estimated GFR (MDRD) Non-Af Amer 92 mL/min >60 [facility] Work Phone: Comment on above: Non- GFR Calc Platelets bldon 10-21-2021 Platelets (Bld) [#/Vol] 304 10*3/uL 150-450 [facility] Work Phone: Serum or plasma albumin nancy urement (mass/volume)on 10-21-2021 Albumin [Mass/Vol] 3.7 g/dL 3.2-5.0 [facility] Work Phone: Serum or plasma albumin/glob ulin mass ratioon 10-21-2021 Albumin/Globulin [Mass ratio] 0.9 {ratio} 0.9-2.4 [facility] Work Phone: Serum or plasma calcium nancy urement (mass/volume)on 10-21-2021 Calcium [Mass/Vol] 9.5 mg/dL 8.5-10.1 [facility] Work Phone: Serum or plasma creatinine m easurement (mass/volume)on 10-21-2021 Creatinine [Mass/Vol] 0.65 mg/dL 0.55-1.02 [facility] Work Phone: Comment on above: The validity of the calculated GFR & GFRAA in patients over 70 years has not been determined. Clinical correlation is essential. Serum or plasma urea nitroge n measurement (mass/volume)on 10-21-2021 Urea nitrogen [Mass/Vol] 12 mg/dL 7-18 [facility] Work Phone: Thin prep Papanicolaou smear with manual screeningon 10-21-2021 Thin prep Papanicolaou smear with manual screening 17 U/L 15-37 [facility] Work Phone: Thin prep Papanicolaou smear with manual screening 9 5-15 [facility] Work Phone: Absolute lymphocyte counton 06-24-2021 Lymphocytes Auto (Unsp spec) [#/Vol] 2.05 10*3/uL 0.83-4.51 [facility] Work Phone: Basophil percentageon 2021 Basophils/100 WBC (Bld) 0.9 % 0-1 [facility] Work Phone: Bilirubin [Mass/Vol] 0.50 mg/dL 0.20-1.00 [facility] Work Phone: Comment on above: For patients on eltr ombopag therapy, use of Dimension [place] TBIL is not recommended. Chloride [Moles/Vol] 106 mmol/L 98-107 [facility] Work Phone: Eosinophils/100 WBC (Bld) 1.6 % 0-5 [facility] Work Phone: Glucose [Mass/Vol] 96 mg/dL 74-106 [facility] Work Phone: Neutrophils (Bld) [#/Vol] 3.4 10*3/uL 2.0-7.7 [facility] Work Phone: Neutrophils/100 WBC (Bld) 53.2 % 47-70 [facility] Work Phone: Potassium [Moles/Vol] 3.8 mmol/L 3.5-5.1 [facility] Work Phone: Protein [Mass/Vol] 7.5 g/dL 6.4-8.2 [facility] Work Phone: Sodium [Moles/Vol] 138 mmol/L 136-145 [facility] Work Phone: WBC (Bld) [#/Vol] 6.3 10*3/uL 4.4-11.0 [facility] Work Phone: Blood erythrocytes count (nu mber/volume)on 06-24-2021 RBC (Bld) [#/Vol] 4.57 10*6/uL 4.2-5.4 [facility] Work Phone: [phone] Blood hemoglobin measurement (mass/volume)on 06-24-2021 Hemoglobin (Bld) [Mass/Vol] 13.2 g/dL 12.0-15.0 [facility] Work Phone: Blood lymphocytes/100 leukoc yteson 06-24-2021 Lymphocytes/100 WBC (Bld) 32.4 % 19-41 [facility] Work Phone: Blood monocytes/100 leukocyt eson 06-24-2021 Monocytes/100 WBC (Bld) 11.4 % 0-10 [facility] Work Phone: Blood platelet mean volumeon 06-24-2021 Platelet mean volume (Bld) [Entitic vol] 9.2 fL 6.2-12.0 [facility] Work Phone: Determination of erythrocyte mean corpuscular volume (MCV)on 06-24-2021 MCV (RBC) [Entitic vol] 88.8 fL 81-99 [facility] Work Phone: [phone] Hematocrit Auto (Bld) [Volum e fraction]on 06-24-2021 Hematocrit (Bld) [Volume fraction] 40.6 % 37-47 [facility] Work Phone: [phone] Laboratory - Chemistry and C hemistry - challengeon 06-24-2021 ALP [Catalytic activity/Vol] 77 U/L 45-117 [facility] Work Phone: ALT [Catalytic activity/Vol] 27 U/L 13-56 [facility] Work Phone: CK [Catalytic activity/Vol] 37 U/L 26-192 [facility] Work Phone: CO2 [Moles/Vol] 24.0 mmol/L 21.0-32.0 [facility] Work Phone: Globulin (S) [Mass/Vol] 3.7 g/dL 2.2-4.2 [facility] Work Phone: [phone] Urea nitrogen/Creatinine [Mass ratio] 19.2 mg/mg 10-20 [facility] Work Phone: [phone] Laboratory - Hematology and Cell countson 06-24-2021 Erythrocyte distribution width (RBC) [Entitic vol] 50.4 fL 35.1-43.9 [facility] Work Phone: [phone] Erythrocyte distribution width (RBC) [Ratio] 15.5 % 11.6-14.6 [facility] Work Phone: [phone] Immature granulocytes/100 WBC (Bld) 0.500 % 0.0-0.9 [facility] Work Phone: [phone] Comment on above: IG% - Immature Granu locytes (promyelocytes, myelocytes and metamyelocytes) > 1% indicates that a LEFT SHIFT is Present. MCH (RBC) [Entitic mass] 28.9 pg 27.0-32.0 [facility] Work Phone: [phone] Nucleated RBC/100 WBC (Bld) [Ratio] 0 % 0-5 [facility] Work Phone: [phone] MCHC Auto (RBC) [Mass/Vol]on 06-24-2021 MCHC (RBC) [Mass/Vol] 32.5 g/dL 32-36 [facility] Work Phone: [phone] Panel Informationon 06-24 Estimated GFR (MDRD) Amer 106 mL/min >60 [facility] Work Phone: [phone] Comment on above: GFR Calc Estimated GFR (MDRD) Non-Af Amer 88 mL/min >60 [facility] Work Phone: [phone] Comment on above: Non- GFR Calc Platelets bldon 06-24-2021 Platelets (Bld) [#/Vol] 352 10*3/uL 150-450 [facility] Work Phone: [phone] Serum or plasma albumin nancy urement (mass/volume)on 06-24-2021 Albumin [Mass/Vol] 3.8 g/dL 3.2-5.0 [facility] Work Phone: [phone] Serum or plasma albumin/glob ulin mass ratioon 06-24-2021 Albumin/Globulin [Mass ratio] 1.0 {ratio} 0.9-2.4 [facility] Work Phone: [phone] Serum or plasma calcium nancy urement (mass/volume)on 06-24-2021 Calcium [Mass/Vol] 9.3 mg/dL 8.5-10.1 [facility] Work Phone: [phone] Serum or plasma creatinine m easurement (mass/volume)on 06-24-2021 Creatinine [Mass/Vol] 0.68 mg/dL 0.55-1.02 [facility] Work Phone: [phone] Comment on above: The validity of the calculated GFR & GFRAA in patients over 70 years has not been determined. Clinical correlation is essential. Serum or plasma urea nitroge n measurement (mass/volume)on 06-24-2021 Urea nitrogen [Mass/Vol] 13 mg/dL 7-18 [facility] Work Phone: [phone] Thin prep Papanicolaou smear with manual screeningon 06-24-2021 Thin prep Papanicolaou smear with manual screening 17 U/L 15-37 [facility] Work Phone: [phone] Thin prep Papanicolaou smear with manual screening 8 5-15 [facility] Work Phone: [phone] Absolute lymphocyte counton 04-11-2021 Lymphocytes Auto (Unsp spec) [#/Vol] 1.88 10*3/uL 0.83-4.51 [facility] Work Phone: [phone] Basophil percentageon 2021 Basophils/100 WBC (Bld) 0.9 % 0-1 [facility] Work Phone: [phone] Bilirubin [Mass/Vol] 0.50 mg/dL 0.20-1.00 [facility] Work Phone: [phone] Comment on above: For patients on eltr ombopag therapy, use of Dimension [place] TBIL is not recommended. Chloride [Moles/Vol] 106 mmol/L 98-107 [facility] Work Phone: Cholesterol [Mass/Vol] 166 mg/dL <200 [facility] Work Phone: Comment on above: <200 mg/dL Desirable 200-240 mg/dL Borderline >240 mg/dL High Risk Eosinophils/100 WBC (Bld) 1.4 % 0-5 [facility] Work Phone: Glucose [Mass/Vol] 99 mg/dL 74-106 [facility] Work Phone: Neutrophils (Bld) [#/Vol] 3.7 10*3/uL 2.0-7.7 [facility] Work Phone: Neutrophils/100 WBC (Bld) 57.9 % 47-70 [facility] Work Phone: Potassium [Moles/Vol] 3.4 mmol/L 3.5-5.1 [facility] Work Phone: [phone] Protein [Mass/Vol] 8.1 g/dL 6.4-8.2 [facility] Work Phone: Sodium [Moles/Vol] 138 mmol/L 136-145 [facility] Work Phone: [phone] Triglyceride [Mass/Vol] 119 mg/dL [facility] Work Phone: Comment on above: The drugs N-Acetylcy steine and Metamizole may falsely depress this assay.Serum Triglycerides Reference Interval Normal <150 mg/dL Borderline high 150 - 199 mg/dL High 200 - 499 mg/dL Very High > or = 500 mg/dL WBC (Bld) [#/Vol] 6.5 10*3/uL 4.4-11.0 [facility] Work Phone: [phone] Blood erythrocytes count (nu mber/volume)on 04-11-2021 RBC (Bld) [#/Vol] 4.42 10*6/uL 4.2-5.4 [facility] Work Phone: [phone] Blood hemoglobin measurement (mass/volume)on 04-11-2021 Hemoglobin (Bld) [Mass/Vol] 13.2 g/dL 12.0-15.0 [facility] Work Phone: Blood lymphocytes/100 leukoc yteson 04-11-2021 Lymphocytes/100 WBC (Bld) 29.1 % 19-41 [facility] Work Phone: Blood monocytes/100 leukocyt eson 04-11-2021 Monocytes/100 WBC (Bld) 10.4 % 0-10 [facility] Work Phone: Blood platelet mean volumeon 04-11-2021 Platelet mean volume (Bld) [Entitic vol] 9.5 fL 6.2-12.0 [facility] Work Phone: Determination of erythrocyte mean corpuscular volume (MCV)on 04-11-2021 MCV (RBC) [Entitic vol] 89.6 fL 81-99 [facility] Work Phone: Erythrocyte sedimentation ra odilia 04-11-2021 ESR (Bld) [Velocity] 23 mm/h 0-[facility]: Hematocrit Auto (Bld) [Volum e fraction]on 04-11-2021 Hematocrit (Bld) [Volume fraction] 39.6 % 37-47 [facility] Work Phone: Laboratory - Chemistry and C hemistry - challengeon 04-11-2021 ALP [Catalytic activity/Vol] 73 U/L 45-117 [facility] Work Phone: ALT [Catalytic activity/Vol] 25 U/L 13-56 [facility] Work Phone: CK [Catalytic activity/Vol] 36 U/L 26-192 [facility] Work Phone: CO2 [Moles/Vol] 26.0 mmol/L 21.0-32.0 [facility] Work Phone: Globulin (S) [Mass/Vol] 4.4 g/dL 2.2-4.2 [facility] Work Phone: Urea nitrogen/Creatinine [Mass ratio] 21.1 mg/mg 10-20 [facility] Work Phone: [phone] Laboratory - Hematology and Cell countson 04-11-2021 Erythrocyte distribution width (RBC) [Entitic vol] 51.7 fL 35.1-43.9 [facility] Work Phone: [phone] Erythrocyte distribution width (RBC) [Ratio] 15.9 % 11.6-14.6 [facility] Work Phone: [phone] Immature granulocytes/100 WBC (Bld) 0.300 % 0.0-0.9 [facility] Work Phone: [phone] Comment on above: IG% - Immature Granu locytes (promyelocytes, myelocytes and metamyelocytes) > 1% indicates that a LEFT SHIFT is Present. MCH (RBC) [Entitic mass] 29.9 pg 27.0-32.0 [facility] Work Phone: [phone] Nucleated RBC/100 WBC (Bld) [Ratio] 0 % 0-5 [facility] Work Phone: [phone] MCHC Auto (RBC) [Mass/Vol]on 04-11-2021 MCHC (RBC) [Mass/Vol] 33.3 g/dL 32-36 [facility] Work Phone: [phone] Panel Informationon 04-11 Estimated GFR (MDRD) Amer 109 mL/min >60 [facility] Work Phone: [phone] Comment on above: GFR Calc Estimated GFR (MDRD) Non-Af Amer 90 mL/min >60 [facility] Work Phone: [phone] Comment on above: Non- GFR Calc Platelets bldon 04-11-2021 Platelets (Bld) [#/Vol] 328 10*3/uL 150-450 [facility] Work Phone: [phone] Serum or plasma C reactive p rotein measurement (mass/volume)on 04-11-2021 CRP [Mass/Vol] mg/L 0.0-3.0 [facility] Work Phone: [phone] Comment on above: C-Reactive Protein ( CRP) provides useful information for thediagnosis, therapy and monitoring of inflammatory processesand associated diseases. For the evaluation of Relative Riskfor Cardiovascular Disease, a High Sensitivity CRP (HSCRP)should be ordered. Serum or plasma albumin nancy urement (mass/volume)on 04-11-2021 Albumin [Mass/Vol] 3.7 g/dL 3.2-5.0 [facility] Work Phone: Serum or plasma albumin/glob ulin mass ratioon 04-11-2021 Albumin/Globulin [Mass ratio] 0.8 {ratio} 0.9-2.4 [facility] Work Phone: Serum or plasma calcium nancy urement (mass/volume)on 04-11-2021 Calcium [Mass/Vol] 9.5 mg/dL 8.5-10.1 [facility] Work Phone: Serum or plasma cholesterol in HDL measurement (mass/volume)on 04-11-2021 Cholesterol in HDL [Mass/Vol] 49 mg/dL [facility] Work Phone: Comment on above: The drugs N-Acetylcy steine and Metamizole may falsely depress this assay. Reference Range HDL <40 mg/dL Low HDL Cholesterol HDL >or= 60 mg/dL High HDL Cholesterol Serum or plasma cholesterol in VLDL measurement (mass/volume)on 04-11-2021 Cholesterol in VLDL [Mass/Vol] 24 mg/dL 5-40 [facility] Work Phone: Serum or plasma creatinine m easurement (mass/volume)on 04-11-2021 Creatinine [Mass/Vol] 0.66 mg/dL 0.55-1.02 [facility] Work Phone: Comment on above: The validity of the calculated GFR & GFRAA in patients over 70 years has not been determined. Clinical correlation is essential. Serum or plasma low density lipoprotein (LDL) cholesterol measurement (mass/volume)on 04-11-2021 Cholesterol in LDL [Mass/Vol] 93 mg/dL 0-130 [facility] Work Phone: Serum or plasma urea nitroge n measurement (mass/volume)on 04-11-2021 Urea nitrogen [Mass/Vol] 14 mg/dL 7-18 [facility] Work Phone: Thin prep Papanicolaou smear with manual screeningon 04-11-2021 Thin prep Papanicolaou smear with manual screening 18 U/L 15-37 [facility] Work Phone: Thin prep Papanicolaou smear with manual screening 6 5-15 [facility] Work Phone: Basophil percentageon 2021 Chloride [Moles/Vol] 106 mmol/L 98-107 [facility] Work Phone: Glucose [Mass/Vol] 127 mg/dL 74-106 [facility] Work Phone: Comment on above: Fasting Glucose resu lt greater than or equal to 126 mg/dL suggests DIABETES MELLITUS per A.D.A. criteria. Potassium [Moles/Vol] 3.6 mmol/L 3.5-5.1 [facility] Work Phone: Sodium [Moles/Vol] 138 mmol/L 136-145 [facility] Work Phone: Laboratory - Chemistry and C hemistry - challengeon 03-08-2021 CO2 [Moles/Vol] 26.0 mmol/L 21.0-32.0 [facility] Work Phone: Urea nitrogen/Creatinine [Mass ratio] 19.1 mg/mg 10-20 [facility] Work Phone: No Panel Informationon 03-08 Estimated GFR (MDRD) Amer 106 mL/min >60 [facility] Work Phone: Comment on above: GFR Calc Estimated GFR (MDRD) Non-Af Amer 87 mL/min >60 [facility] Work Phone: Comment on above: Non- GFR Calc Serum or plasma calcium nancy urement (mass/volume)on 03-08-2021 Calcium [Mass/Vol] 9.9 mg/dL 8.5-10.1 [facility] Work Phone: Serum or plasma creatinine m easurement (mass/volume)on 03-08-2021 Creatinine [Mass/Vol] 0.68 mg/dL 0.55-1.02 [facility] Work Phone: Comment on above: The validity of the calculated GFR & GFRAA in patients over 70 years has not been determined. Clinical correlation is essential. Serum or plasma urea nitroge n measurement (mass/volume)on 03-08-2021 Urea nitrogen [Mass/Vol] 13 mg/dL 7-18 [facility] Work Phone: Thin prep Papanicolaou smear with manual screeningon 03-08-2021 Thin prep Papanicolaou smear with manual screening 6 5-15 [facility] Work Phone: Lab Report: Comprehensive Mo tabolic Profilon 10-11-2016 Alanine aminotransferase (ALT) 37 U/L Invalid Interpretation Code 12-78 [facility] Work Phone: Albumin 3.5 g/dL Invalid Interpretation Code 3.4-5.0 [facility] Work Phone: Albumin/Globulin Ratio 0.8 {ratio} Low 0.9-2.4 [facility] Work Phone: Alkaline phosphatase (ALP) 47 U/L Invalid Interpretation Code 45-117 [facility] Work Phone: Anion gap 10 mmol/L Invalid Interpretation Code 5-15 [facility] Work Phone: Aspartate aminotransferase (AST) 26 U/L Invalid Interpretation Code 15-37 [facility] Work Phone: Bilirubin (total) 0.50 mg/dL Invalid Interpretation Code 0.20-1.00 [facility] Work Phone: BUN/Creatinine Ratio 23.0 RATIO High 10-20 [facility] Work Phone: Calcium 9.3 mg/dL Invalid Interpretation Code 8.5-10.1 [facility] Work Phone: Chloride 102 mmol/L Invalid Interpretation Code 98-107 [facility] Work Phone: [phone] CO2 26.0 mmol/L Invalid Interpretation Code 21.0-32.0 [facility] Work Phone: Creatinine 0.61 mg/dL Invalid Interpretation Code 0.55-1.02 [facility] Work Phone: [phone] eGFR (non-black) 100 mL/min/{1.73_m2} Invalid Interpretation Code >60 [facility] Work Phone: [phone] eGFR (non-black) 121 mL/min/{1.73_m2} Invalid Interpretation Code >60 [facility] Work Phone: [phone] Globulin 4.3 g/dL High 2.3-3.5 [facility] Work Phone: [phone] Glucose 87 mg/dL Invalid Interpretation Code 70-110 [facility] Work Phone: [phone] Potassium 3.7 mmol/L Invalid Interpretation Code 3.5-5.1 [facility] Work Phone: [phone] Protein 7.8 g/dL Invalid Interpretation Code 6.4-8.2 [facility] Work Phone: [phone] Sodium 138 mmol/L Invalid Interpretation Code 136-145 [facility] Work Phone: [phone] Urea nitrogen 14 mg/dL Invalid Interpretation Code 7-18 [facility] Work Phone: Lab Report: Thyroid Stim Hor shakira (TSH)on 10-11-2016 Thyroid stimulating hormone (TSH) 4.50 u[iU]/mL High 0.358-3.74 [facility] Work Phone: Lab Report: Vitamin D,25 Hyd roxyon 10-11-2016 vitamin D 25-hydroxy, serum 62.1 ng/mL Invalid Interpretation Code [facility] Work Phone: Office Visit: [employer] [facility] [place] Documentation of current medications (procedure) Done Invalid Interpretation Code [facility] Work Phone: Fall risk assessment No Invalid Interpretation Code [facility] [employer] Work Phone: Tobacco smoking status NHIS Never Invalid Interpretation Code [facility] [employer] Work Phone: Tobacco use CPHS Never smoker Invalid Interpretation Code [facility] [employer] Work Phone: Office Visit: [employer] [facility] Breast Mammogram screening Abnormal Left Invalid Interpretation Code [facility] [employer] Work Phone: Lab Report: PTH,INTACTon Parathyrin.intact mass conc 74 pg/mL High 14-72 [facility] [employer] Work Phone: Lab Report: Basic Metabolic Profile (BMP)on 08-24-2015 Anion gap molar conc 8 mmol/L 5-15 [facility] [employer] Work Phone: Calcium mass conc 9.2 mg/dL 8.5-10.1 [facility] [employer] Work Phone: Chloride molar conc 106 mmol/L 98-107 [facility] [employer] Work Phone: CO2 ppres (BldV) 26.0 mmol/L 21.0-32.0 [facility] [employer] Work Phone: Creatinine mass conc 0.68 mg/dL 0.55-1.20 [facility] [employer] Work Phone: EST GFR - AA 108 mL/min >60 [facility] [employer] Work Phone: GFR/1.73 sq M predicted among non-blacks MDRD vol rate/area (S/P/Bld) 90 mL/min/{1.73_m2} >60 [facility] [employer] Work Phone: Glucose mass conc 90 mg/dL 70-110 [facility] [employer] Work Phone: Potassium molar conc 3.7 mmol/L 3.5-5.1 [facility] [employer] Work Phone: Sodium molar conc 140 mmol/L 136-145 [facility] [employer] Work Phone: Urea nitrogen mass conc 15 mg/dL 7-18 [facility] [employer] Work Phone: Urea nitrogen/Creatinine mass ratio 22.2 RATIO High 10-20 [facility] [employer] Work Phone: Rx Refill: eRx Request for P RAVASTATIN SODIUM 40 MG TABon 08-21-2015 Sodium molar conc [id number]`PRAVASTAT IN SODIUM 40 MG TAB```30 Tablet`30`TAKE ONE TABLET BY MOUTH DAILY``7`0` 5`No date sent`[facility]*`[id number]` [id number]``PRAVAST ATIN SODIUM 40 MG TAB Quantity: 30 Tablet Instructions: TAKE ONE TABLET BY MOUTH DAILY [employer] [facility] Work Phone: Lab Report: Aldolaseon 08-05 Aldolase [Enzymatic activity/volume] in Serum 4.0 U/L Invalid Interpretation Code 3.3-10.3 [facility] Work Phone: Lab Report: CBC W/Diff, Auto matedon 08-04-2015 Basophils/100 leukocytes 1.2 % High 0-1 [facility] Work Phone: Basophils/100 WBC (Bld) 1.2 % High 0-1 [facility] Work Phone: Erythrocyte distribution width Ratio (RBC) 55.1 fL High 35.1-43.9 [facility] Work Phone: Erythrocyte distribution width Ratio (RBC) 16.8 % High 11.6-14.6 [facility] Work Phone: Erythrocytes (RBC) 3.95 10*6/uL Low 4.2-5.4 [facility] Work Phone: Monocytes/100 leukocytes 18.1 % High 0-10 [facility] Work Phone: Monocytes/100 WBC (Bld) 18.1 % High 0-10 [facility] Work Phone: RBC #/vol (Bld) 3.95 10*6/uL Low 4.2-5.4 [facility] Work Phone: RDW-CA 16.8 % High 11.6-14.6 [facility] Work Phone: red blood cell distribution width, size density 55.1 fL High 35.1-43.9 [facility] Work Phone: WBC #/vol (Bld) 4.1 10*3/uL Low 4.4-11.0 [facility] Work Phone: [phone] WBC (Leukocytes) 4.1 10*3/uL Low 4.4-11.0 [facility] Work Phone: [phone] Eosinophils/100 leukocytes 2.0 % Invalid Interpretation Code 0-5 [facility] Work Phone: [phone] Eosinophils/100 WBC (Bld) 2.0 % 0-5 [facility] Work Phone: [phone] Hematocrit (HCT) 37.0 % Invalid Interpretation Code 37-47 [facility] Work Phone: [phone] Hematocrit Volume Fraction (Bld) 37.0 % 37-47 [facility] Work Phone: [phone] Hemoglobin mass conc (Bld) 12.4 g/dL Invalid Interpretation Code 12.0-15.0 [facility] Work Phone: [phone] Immature granulocytes #/vol (Bld) 0.500 % 0.0-0.9 [facility] Work Phone: [phone] immature granulocytes, percentage of total cells, blood 0.500 % Invalid Interpretation Code 0.0-0.9 [facility] Work Phone: [phone] Lymphocytes 0.86 X10 3/UL Invalid Interpretation Code 0.83-4.51 [facility] Work Phone: [phone] Lymphocytes #/vol (Bld) 0.86 X10 3/UL 0.83-4.51 [facility] Work Phone: [phone] Lymphocytes/100 leukocytes 21.1 % Invalid Interpretation Code 19-41 [facility] Work Phone: [phone] Lymphocytes/100 WBC (Bld) 21.1 % 19-41 [facility] Work Phone: [phone] MCH 31.4 pg Invalid Interpretation Code 27.0-32.0 [facility] Work Phone: [phone] MCH Entitic mass (RBC) 31.4 pg 27.0-32.0 [facility] Work Phone: [phone] MCHC 33.5 G/GL Invalid Interpretation Code 32-36 [facility] Work Phone: MCHC mass conc (RBC) 33.5 G/GL 32-36 [facility] Work Phone: [phone] MCV 93.7 fL Invalid Interpretation Code 81-99 [facility] Work Phone: [phone] MCV Entitic volume (RBC) 93.7 fL 81-99 [facility] Work Phone: neutrophil count, blood 2.3 X10 3/UL Invalid Interpretation Code 2.0-7.7 [facility] [employer] Work Phone: [phone] Neutrophils #/vol (Bld) 2.3 X10 3/UL 2.0-7.7 [facility] [employer] Work Phone: [phone] Neutrophils/100 leukocytes 57.1 % Invalid Interpretation Code 47-70 [facility] [employer] Work Phone: [phone] Neutrophils/100 WBC (Bld) 57.1 % 47-70 [facility] [employer] Work Phone: Platelet mean volume Entitic volume (Bld) 9.1 fL 6.2-12.0 [facility] [employer] Work Phone: Platelets 281 10*3/mm3 Invalid Interpretation Code 150-450 [facility] [employer] Work Phone: Platelets #/vol (Bld) 281 10*3/mm3 150-450 [facility] [employer] Work Phone: PMV by Kojo 9.1 fL Invalid Interpretation Code 6.2-12.0 [facility] [employer] Work Phone: Lab Report: CPK Total, Creat ine Kinaseon 08-04-2015 CK enzyme act/vol 50 U/L Invalid Interpretation Code 26-192 [facility] [employer] Work Phone: Lab Report: Comprehensive Me tabolic Profilon 08-04-2015 Albumin mass conc 3.5 g/dL 3.4-5.0 [facility] Teresa [facility]ical [employer] Work Phone: Albumin/Globulin mass ratio 0.8 {ratio} Low 0.9-2.4 [facility] [employer] Work Phone: ALP enzyme act/vol (Bld) 69 U/L 50-136 [facility] Work Phone: ALT enzyme act/vol 36 U/L 12-78 [facility] Work Phone: [phone] AST enzyme act/vol 27 U/L 15-37 [facility] Work Phone: Bilirubin mass conc 0.50 mg/dL 0.20-1.00 [facility] S [facility] Work Phone: Globulin mass conc (S) 4.4 g/dL High 2.3-3.5 [facility] Work Phone: Protein mass conc 7.9 g/dL 6.4-8.2 [facility] Teresa [facility]ical [employer] Work Phone: Lab Report: Vitamin D,25 Hyd roxyon 04-23-2015 Vitamin D 25-OH 57.5 ng/mL [facility] Surgi lupis [employer] Work Phone: Lab Report: Thyroid Stim Hor shakira (TSH)on 04-22-2015 Thyrotropin Qn 0.34 u[iU]/mL Low 0.358-3.74 [facility] Teresa [facility]ical [employer] Work Phone: Office Visiton 12-02-2014 Documentation of current medications (procedure) Done Invalid Interpretation Code [facility] [employer] Work Phone: [facility] [employer] Work Phone: Tobacco smoking status NHIS Never Invalid Interpretation Code [facility] [employer] Work Phone: Tobacco smoking status NHIS Never smoker [facility] Work Phone: Tobacco use [facility] Never smoker Invalid Interpretation Code [facility] [employer] Work Phone: Lab Report: Lipid Profileon 11-26-2014 Cholesterol in HDL mass conc 50 mg/dL Invalid Interpretation Code [facility] Work Phone: Cholesterol in LDL mass conc 69 mg/dL Invalid Interpretation Code 0-130 [facility] Work Phone: Cholesterol mass conc 134 mg/dL Invalid Interpretation Code 200 [facility] Work Phone: Lipoprotein.pre-beta mass conc 15 mg/dL Invalid Interpretation Code 5-40 [facility] Work Phone: Triglyceride mass conc 76 mg/dL Invalid Interpretation Code [facility] Work Phone: Lab Report: CBC W/Diff, Auto matedon 10-05-2014 Absolute Neut 3.7 X10 3/UL 2.0-7.7 [facility]i [facility] Work Phone: Absolute Neutrophil count 3.7 X10 3/UL Invalid Interpretation Code 2.0-7.7 [facility] Work Phone: Lymphocytes 0.78 X10 3/UL Low 0.83-4.51 [facility] Work Phone: Lymphocytes #/vol (Bld) 0.78 X10 3/UL Low 0.83-4.51 [facility] Work Phone: Lab Report: CBC W/Diff, Auto matedon 07-10-2014 GE use only - for [employer] import when terms are not otherwise specified SLIDE SCANNED Invalid Interpretation Code [facility] Work Phone: SMEAR COMMENT SLIDE SCANNED [facility] Surg ical [facility] Work Phone: Office Visit: HTN follow upo n 05-04-2014 Protein mass conc yes [facility] Teresa gical [facility] Work Phone: Smoking cessation education (procedure) yes Invalid Interpretation Code [facility] Work Phone: Office Visit: HTN follow up, PAPon 12-06-2011 General categories Cyto stain Interp (Cervical or vaginal smear or scraping) Normal Invalid Interpretation Code [facility] Work Phone: COVID-19 virus antigen assay SARS-CoV-2 (COVID-19) Ag IA.rapid Ql (Resp) [facility] Work Phone: Vital Signs Date Time Vital Sign Value Performing Clinician Facility 07-30-2024 08:04-0400 Body height 152.[address] Catia Christian DO Work Phone: [facility] 07-30-2024 08:04-0400 Body mass index (BMI) [Ratio] 26.5 kg/m2 Dr. Catia Christian DO Work Phone: [facility] 07-30-2024 08:04-0400 Body temperature 96.5 [degF] Dr. Catia Christian DO Work Phone: [facility] 07-30-2024 08:04-0400 Body weight 61.[address] Catia Christian DO Work Phone: [facility] 07-30-2024 08:04-0400 Diastolic blood pressure 76 mm[Hg] Dr. Catia Christian DO Work Phone: [facility] 07-30-2024 08:04-0400 Heart rate 76 /min Dr. Catia Christian DO Work Phone: [facility] 07-30-2024 08:04-0400 Respiratory rate 18 /min Dr. Catia Christian DO Work Phone: [facility] 07-30-2024 08:04-0400 SaO2% (BldA) [Mass fraction] 95 % Dr. Catia Christian DO Work Phone: [facility] 07-30-2024 08:04-0400 Systolic blood pressure 150 mm[Hg] Dr. Catia Christian DO Work Phone: [facility] 06-04-2024 11:20-0400 Body temperature 96.6 [degF] Dr. Catia Christian DO Work Phone: [facility] 06-04-2024 11:20-0400 Diastolic blood pressure 70 mm[Hg] Dr. Catia Christian DO Work Phone: [facility] 06-04-2024 11:20-0400 Heart rate 56 /min Dr. Catia Christian DO Work Phone: [facility] 06-04-2024 11:20-0400 Respiratory rate 16 /min Dr. Catia Christian DO Work Phone: [facility] 06-04-2024 11:20-0400 Systolic blood pressure 143 mm[Hg] Dr. Catia Christian DO Work Phone: [facility] 06-04-2024 08:20-0400 Body height 152.[address] Catia Christian DO Work Phone: [facility] 06-04-2024 08:20-0400 Body mass index (BMI) [Ratio] 27.5 kg/m2 Dr. Catia Christian DO Work Phone: [facility] 06-04-2024 08:20-0400 Body weight 63.[address] Catia Christian DO Work Phone: [facility] 06-04-2024 08:20-0400 SaO2% (BldA) [Mass fraction] 96 % Dr. Catia Christian DO Work Phone: [facility] 06-02-2024 08:27-0400 Body mass index (BMI) [Ratio] 25.5 kg/m2 Dr. Catia Christian DO Work Phone: [facility] 06-02-2024 08:27-0400 Body temperature 96.9 [degF] Dr. Catia Christian DO Work Phone: [facility] 06-02-2024 08:27-0400 Body weight 59.[address] Catia Christian DO Work Phone: [facility] 06-02-2024 08:27-0400 Diastolic blood pressure 70 mm[Hg] Dr. Catia Christian DO Work Phone: [facility] 06-02-2024 08:27-0400 Heart rate 73 /min Dr. Catia Christian DO Work Phone: [facility] 06-02-2024 08:27-0400 Respiratory rate 16 /min Dr. Catia Christian DO Work Phone: [facility] 06-02-2024 08:27-0400 SaO2% (BldA) [Mass fraction] 95 % Dr. Catia Christian DO Work Phone: [facility] 06-02-2024 08:27-0400 Systolic blood pressure 156 mm[Hg] Dr. Catia Christian DO Work Phone: [facility] 04-11-2024 08:47-0500 Body height 152.[address] Catia Christian DO Work Phone: [facility] 04-11-2024 08:47-0500 Body mass index (BMI) [Ratio] 27.5 kg/m2 Dr. Catia Christian DO Work Phone: [facility] 04-11-2024 08:47-0500 Body temperature 96.8 [degF] Dr. Catia Christian DO Work Phone: [facility] 04-11-2024 08:47-0500 Body weight 63.[address] Catia Christian DO Work Phone: [facility] 04-11-2024 08:47-0500 Diastolic blood pressure 72 mm[Hg] Dr. Catia Christian DO Work Phone: [facility] 04-11-2024 08:47-0500 Heart rate 80 /min Dr. Catia Christian DO Work Phone: [facility] 04-11-2024 08:47-0500 Respiratory rate 16 /min Dr. Catia Christian DO Work Phone: [facility] 04-11-2024 08:47-0500 SaO2% (BldA) [Mass fraction] 96 % Dr. Catia Christian DO Work Phone: [facility] 04-11-2024 08:47-0500 Systolic blood pressure 158 mm[Hg] Dr. Catia Christian DO Work Phone: [facility] 04-09-2024 08:41-0500 Body mass index (BMI) [Ratio] 27.5 kg/m2 Dr. Catia Christian DO Work Phone: [facility] 04-09-2024 08:41-0500 Body temperature 97 [degF] Dr. Catia Christian DO Work Phone: [facility] 04-09-2024 08:41-0500 Body weight 63.[address] Catia Christian DO Work Phone: [facility] 04-09-2024 08:41-0500 Diastolic blood pressure 79 mm[Hg] Dr. Catia Christian DO Work Phone: [facility] 04-09-2024 08:41-0500 Heart rate 69 /min Dr. Catia Christian DO Work Phone: [facility] 04-09-2024 08:41-0500 Respiratory rate 14 /min Dr. Catia Christian DO Work Phone: [facility] 04-09-2024 08:41-0500 SaO2% (BldA) [Mass fraction] 96 % Dr. Catia Christian DO Work Phone: [facility] 04-09-2024 08:41-0500 Systolic blood pressure 145 mm[Hg] Dr. Catia Christian DO Work Phone: [facility] 02-15-2024 11:48-0500 Body temperature 96.7 [degF] Dr. Catia Christian DO Work Phone: [facility] 02-15-2024 11:48-0500 Diastolic blood pressure 86 mm[Hg] Dr. Catia Christian DO Work Phone: [facility] 02-15-2024 11:48-0500 Heart rate 70 /min Dr. Catia Christian DO Work Phone: [facility] 02-15-2024 11:48-0500 Respiratory rate 16 /min Dr. Catia Christian DO Work Phone: [facility] 02-15-2024 11:48-0500 SaO2% (BldA) [Mass fraction] 92 % Dr. Catia Christian DO Work Phone: [facility] 02-15-2024 11:48-0500 Systolic blood pressure 161 mm[Hg] Dr. Catia Christian DO Work Phone: [facility] 02-15-2024 08:30-0500 Body mass index (BMI) [Ratio] 27.6 kg/m2 Dr. Catia Christian DO Work Phone: [facility] 02-15-2024 08:30-0500 Body weight 64.[address] Ctaia Christian DO Work Phone: [facility] 02-13-2024 08:24-0500 Body temperature 97.3 [degF] Dr. Catia Christian DO Work Phone: [facility] 02-13-2024 08:24-0500 Diastolic blood pressure 77 mm[Hg] Dr. Catia Christian DO Work Phone: [facility] 02-13-2024 08:24-0500 Heart rate 75 /min Dr. Catia Christian DO Work Phone: [facility] 02-13-2024 08:24-0500 Respiratory rate 16 /min Dr. Catia Christian DO Work Phone: [facility] 02-13-2024 08:24-0500 SaO2% (BldA) [Mass fraction] 96 % Dr. Catia Christian DO Work Phone: [facility] 02-13-2024 08:24-0500 Systolic blood pressure 150 mm[Hg] Dr. Catia Christian DO Work Phone: [facility] 05-10-2023 08:35-0400 Body height 152.4 cm [facility] 05-10-2023 08:35-0400 Body mass index (BMI) [Ratio] 27.7 kg/m2 [facility] 05-10-2023 08:35-0400 Body temperature 97.6 [degF] [facility] 05-10-2023 08:35-0400 Body weight 64.41 kg [facility] 05-10-2023 08:35-0400 Diastolic blood pressure 79 mm[Hg] [facility] 05-10-2023 08:35-0400 Heart rate 77 /min [facility] 05-10-2023 08:35-0400 Respiratory rate 16 /min [facility] 05-10-2023 08:35-0400 SaO2% (BldA) [Mass fraction] 96 % [facility] 05-10-2023 08:35-0400 Systolic blood pressure 175 mm[Hg] [facility] 05-09-2023 08:15-0400 Body height 152.4 cm [facility] 05-09-2023 08:15-0400 Body mass index (BMI) [Ratio] 26.9 kg/m2 [facility] 05-09-2023 08:15-0400 Body temperature 96.6 [degF] [facility] 05-09-2023 08:15-0400 Body weight 62.59 kg [facility] 05-09-2023 08:15-0400 Diastolic blood pressure 78 mm[Hg] [facility] 05-09-2023 08:15-0400 Heart rate 76 /min [facility] 05-09-2023 08:15-0400 Respiratory rate 16 /min [facility] 05-09-2023 08:15-0400 SaO2% (BldA) [Mass fraction] 95 % [facility] 05-09-2023 08:15-0400 Systolic blood pressure 150 mm[Hg] [facility] 04-06-2023 20:42-0500 Body temperature 97.6 [degF] [facility] 04-06-2023 20:42-0500 Diastolic blood pressure 109 mm[Hg] [facility] 04-06-2023 20:42-0500 Heart rate 111 /min [facility] 04-06-2023 20:42-0500 Respiratory rate 18 /min [facility] 04-06-2023 20:42-0500 SaO2% (BldA) [Mass fraction] 92 % [facility] 04-06-2023 20:42-0500 Systolic blood pressure 180 mm[Hg] [facility] 04-06-2023 16:10-0500 Body height 152.4 cm [facility] 04-06-2023 16:10-0500 Body mass index (BMI) [Ratio] 30.7 kg/m2 [facility] 04-06-2023 16:10-0500 Body weight 71.5 kg [facility] 03-23-2023 12:56-0500 Body height 152.4 cm [facility] 03-23-2023 12:56-0500 Body mass index (BMI) [Ratio] 29.2 kg/m2 [facility] 03-23-2023 12:56-0500 Body temperature 97.4 [degF] [facility] 03-23-2023 12:56-0500 Body weight 68.03 kg [facility] 03-23-2023 12:56-0500 Diastolic blood pressure 83 mm[Hg] [facility] 03-23-2023 12:56-0500 Heart rate 72 /min [facility] 03-23-2023 12:56-0500 Respiratory rate 16 /min [facility] 03-23-2023 12:56-0500 SaO2% (BldA) [Mass fraction] 95 % [facility] 03-23-2023 12:56-0500 Systolic blood pressure 161 mm[Hg] [facility] 03-09-2023 08:46-0500 Body temperature 97.6 [degF] [facility] 03-09-2023 08:46-0500 Diastolic blood pressure 73 mm[Hg] [facility] 03-09-2023 08:46-0500 Heart rate 64 /min [facility] 03-09-2023 08:46-0500 Respiratory rate 16 /min [facility] 03-09-2023 08:46-0500 Systolic blood pressure 132 mm[Hg] [facility] 03-08-2023 08:21-0500 Body mass index (BMI) [Ratio] 29.2 kg/m2 [facility] 03-08-2023 08:21-0500 Body temperature 97.2 [degF] [facility] 03-08-2023 08:21-0500 Body weight 68.03 kg [facility] 03-08-2023 08:21-0500 Diastolic blood pressure 74 mm[Hg] [facility] 03-08-2023 08:21-0500 Heart rate 69 /min [facility] 03-08-2023 08:21-0500 Respiratory rate 16 /min [facility] 03-08-2023 08:21-0500 SaO2% (BldA) [Mass fraction] 94 % [facility] 03-08-2023 08:21-0500 Systolic blood pressure 146 mm[Hg] [facility] 01-15-2023 08:50-0500 Body height 152.4 cm [facility] 01-15-2023 08:50-0500 Body mass index (BMI) [Ratio] 29.2 kg/m2 [facility] 01-15-2023 08:50-0500 Body temperature 97.3 [degF] [facility] 01-15-2023 08:50-0500 Body weight 68.03 kg [facility] 01-15-2023 08:50-0500 Diastolic blood pressure 79 mm[Hg] [facility] 01-15-2023 08:50-0500 Heart rate 89 /min [facility] 01-15-2023 08:50-0500 Respiratory rate 18 /min [facility] 01-15-2023 08:50-0500 Systolic blood pressure 142 mm[Hg] [facility] 01-11-2023 08:27-0500 Body height 152.4 cm [facility] 01-11-2023 08:27-0500 Body temperature 96.4 [degF] [facility] 01-11-2023 08:27-0500 Diastolic blood pressure 71 mm[Hg] [facility] 01-11-2023 08:27-0500 Heart rate 68 /min [facility] 01-11-2023 08:27-0500 Respiratory rate 16 /min [facility] 01-11-2023 08:27-0500 SaO2% (BldA) [Mass fraction] 95 % [facility] 01-11-2023 08:27-0500 Systolic blood pressure 154 mm[Hg] [facility] 11-09-2022 08:24-0400 Body height 152.4 cm [facility] 11-09-2022 08:24-0400 Body temperature 97.7 [degF] [facility] 11-09-2022 08:24-0400 Diastolic blood pressure 80 mm[Hg] [facility] 11-09-2022 08:24-0400 Heart rate 75 /min [facility] 11-09-2022 08:24-0400 Respiratory rate 16 /min [facility] 11-09-2022 08:24-0400 Systolic blood pressure 141 mm[Hg] [facility] 11-08-2022 08:23-0400 Body height 152.4 cm [facility] 11-08-2022 08:23-0400 Body mass index (BMI) [Ratio] 27.3 kg/m2 [facility] 11-08-2022 08:23-0400 Body weight 63.5 kg [facility] 09-22-2022 13:28-0400 Body temperature 97.3 [degF] [facility] 09-22-2022 13:28-0400 Diastolic blood pressure 78 mm[Hg] [facility] 09-22-2022 13:28-0400 Heart rate 72 /min [facility] 09-22-2022 13:28-0400 Respiratory rate 16 /min [facility] 09-22-2022 13:28-0400 SaO2% (BldA) [Mass fraction] 96 % [facility] 09-22-2022 13:28-0400 Systolic blood pressure 151 mm[Hg] [facility] 09-07-2022 08:02-0400 Body height 152.[address] Catia Christian Work Phone: [facility] 09-07-2022 08:02-0400 Body temperature 97.2 [degF] Dr. Catia Christian Work Phone: [facility] 09-07-2022 08:02-0400 Diastolic blood pressure 84 mm[Hg] Dr. Catia Christian Work Phone: [facility] 09-07-2022 08:02-0400 Heart rate 71 /min Dr. Catia Christian Work Phone: [facility] 09-07-2022 08:02-0400 Respiratory rate 18 /min Dr. Catia Christian Work Phone: [facility] 09-07-2022 08:02-0400 SaO2% (BldA) [Mass fraction] 96 % Dr. Ctaia Christian Work Phone: [facility] 09-07-2022 08:02-0400 Systolic blood pressure 168 mm[Hg] Dr. Catia Christian Work Phone: [facility] 09-06-2022 11:42-0400 Body temperature 97 [degF] Dr. Catia Christian Work Phone: [facility] 09-06-2022 11:42-0400 Diastolic blood pressure 78 mm[Hg] Dr. Catia Christian Work Phone: [facility] 09-06-2022 11:42-0400 Heart rate 62 /min Dr. Catia Christian Work Phone: [facility] 09-06-2022 11:42-0400 Systolic blood pressure 151 mm[Hg] Dr. Catia Christian Work Phone: [facility] 09-06-2022 08:20-0400 Body height 152.[address] Catia Christian Work Phone: [facility] 09-06-2022 08:20-0400 Body mass index (BMI) [Ratio] 28.3 kg/m2 Dr. Catia Christian Work Phone: [facility] 09-06-2022 08:20-0400 Body weight 65.[address] Catia Christian Work Phone: [facility] 09-06-2022 08:20-0400 Respiratory rate 18 /min Dr. Catia Christian Work Phone: [facility] 09-06-2022 08:20-0400 SaO2% (BldA) [Mass fraction] 95 % Dr. Catia Christian Work Phone: [facility] 07-13-2022 08:14-0400 Body height 152.[address] Catia Christian Work Phone: [facility] 07-13-2022 08:14-0400 Body mass index (BMI) [Ratio] 26.5 kg/m2 Dr. Catia Christian Work Phone: [facility] 07-13-2022 08:14-0400 Body temperature 97.4 [degF] Dr. Catia Christian Work Phone: [facility] 07-13-2022 08:14-0400 Body weight 61.[address] Catia Christian Work Phone: [facility] 07-13-2022 08:14-0400 Diastolic blood pressure 69 mm[Hg] Dr. Catia Christian Work Phone: [facility] 07-13-2022 08:14-0400 Heart rate 72 /min Dr. Catia Christian Work Phone: [facility] 07-13-2022 08:14-0400 Respiratory rate 18 /min Dr. Catia Christian Work Phone: [facility] 07-13-2022 08:14-0400 SaO2% (BldA) [Mass fraction] 97 % Dr. Catia Christian Work Phone: [facility] 07-13-2022 08:14-0400 Systolic blood pressure 152 mm[Hg] Dr. Catia Christian Work Phone: [facility] 07-12-2022 08:05-0400 Body height 152.[address] Catia Christian Work Phone: [facility] 07-12-2022 08:05-0400 Body mass index (BMI) [Ratio] 26.5 kg/m2 Dr. Catia Christian Work Phone: [facility] 07-12-2022 08:05-0400 Body temperature 97.6 [degF] Dr. Catia Christian Work Phone: [facility] 07-12-2022 08:05-0400 Body weight 61.[address] Catia Christian Work Phone: [facility] 07-12-2022 08:05-0400 Diastolic blood pressure 74 mm[Hg] Dr. Catia Christian Work Phone: [facility] 07-12-2022 08:05-0400 Heart rate 69 /min Dr. Catia Christian Work Phone: [facility] 07-12-2022 08:05-0400 Respiratory rate 18 /min Dr. Catia Christian Work Phone: [facility] 07-12-2022 08:05-0400 SaO2% (BldA) [Mass fraction] 96 % Dr. Catia Christian Work Phone: [facility] 07-12-2022 08:05-0400 Systolic blood pressure 144 mm[Hg] Dr. Catia Christian Work Phone: [facility] 05-25-2022 09:29-0400 Body height 152.[address] Catia Christian Work Phone: [facility] 05-25-2022 09:29-0400 Body mass index (BMI) [Ratio] 28.1 kg/m2 Dr. Catia Christian Work Phone: [facility] 05-25-2022 09:29-0400 Body temperature 93.5 [degF] Dr. Catia Christian Work Phone: [facility] 05-25-2022 09:29-0400 Body weight 65.[address] Catia Christian Work Phone: [facility] 05-25-2022 09:29-0400 Diastolic blood pressure 89 mm[Hg] Dr. Catia Christian Work Phone: [facility] 05-25-2022 09:29-0400 Heart rate 71 /min Dr. Catia Christian Work Phone: [facility] 05-25-2022 09:29-0400 Respiratory rate 16 /min Dr. Catia Christian Work Phone: [facility] 05-25-2022 09:29-0400 SaO2% (BldA) [Mass fraction] 94 % Dr. Catia Christian Work Phone: [facility] 05-25-2022 09:29-0400 Systolic blood pressure 161 mm[Hg] Dr. Catia Christian Work Phone: [facility] 05-18-2022 08:24-0400 Body height 152.[address] Catia Christian Work Phone: [facility] 05-18-2022 08:24-0400 Body mass index (BMI) [Ratio] 26.5 kg/m2 Dr. Catia Christian Work Phone: [facility] 05-18-2022 08:24-0400 Body temperature 97.2 [degF] Dr. Catia Christian Work Phone: [facility] 05-18-2022 08:24-0400 Body weight 61.[address] Catia Christian Work Phone: [facility] 05-18-2022 08:24-0400 Diastolic blood pressure 73 mm[Hg] Dr. Catia Christian Work Phone: [facility] 05-18-2022 08:24-0400 Heart rate 68 /min Dr. Catia Christian Work Phone: [facility] 05-18-2022 08:24-0400 Respiratory rate 16 /min Dr. Catia Christian Work Phone: [facility] 05-18-2022 08:24-0400 SaO2% (BldA) [Mass fraction] 95 % Dr. Catia Christian Work Phone: [facility] 05-18-2022 08:24-0400 Systolic blood pressure 147 mm[Hg] Dr. Catia Christian Work Phone: [facility] 05-17-2022 08:16-0400 Body temperature 97.1 [degF] Dr. Catia Christian Work Phone: [facility] 05-17-2022 08:16-0400 Diastolic blood pressure 74 mm[Hg] Dr. Catia Christian Work Phone: [facility] 05-17-2022 08:16-0400 Heart rate 68 /min Dr. Catia Christian Work Phone: [facility] 05-17-2022 08:16-0400 Respiratory rate 16 /min Dr. Catia Christian Work Phone: [facility] 05-17-2022 08:16-0400 SaO2% (BldA) [Mass fraction] 97 % Dr. Catia Christian Work Phone: [facility] 05-17-2022 08:16-0400 Systolic blood pressure 140 mm[Hg] Dr. Catia Christian Work Phone: [facility] 03-24-2022 12:39-0500 Body temperature 97.5 [degF] Dr. Catia Christian Work Phone: [facility] 03-24-2022 12:39-0500 Diastolic blood pressure 75 mm[Hg] Dr. Catia Christian Work Phone: [facility] 03-24-2022 12:39-0500 Heart rate 66 /min Dr. Catia Christian Work Phone: [facility] 03-24-2022 12:39-0500 Respiratory rate 16 /min Dr. Catia Christian Work Phone: [facility] 03-24-2022 12:39-0500 SaO2% (BldA) [Mass fraction] 94 % Dr. Catia Christian Work Phone: [facility] 03-24-2022 12:39-0500 Systolic blood pressure 150 mm[Hg] Dr. Catia Christian Work Phone: [facility] 03-24-2022 08:46-0500 Body height 152.[address] Catia Christian Work Phone: [facility] 03-24-2022 08:46-0500 Body mass index (BMI) [Ratio] 26.9 kg/m2 Dr. Catia Christian Work Phone: [facility] 03-24-2022 08:46-0500 Body weight 62.[address] Catia Christian Work Phone: [facility] 03-23-2022 11:58-0500 Body temperature 97.4 [degF] Dr. Catia Christian Work Phone: [facility] 03-23-2022 11:58-0500 Diastolic blood pressure 71 mm[Hg] Dr. Catia Christian Work Phone: [facility] 03-23-2022 11:58-0500 Heart rate 59 /min Dr. Catia Christian Work Phone: [facility] 03-23-2022 11:58-0500 Respiratory rate 16 /min Dr. Catia Christian Work Phone: [facility] 03-23-2022 11:58-0500 SaO2% (BldA) [Mass fraction] 96 % Dr. Catia Christian Work Phone: [facility] 03-23-2022 11:58-0500 Systolic blood pressure 145 mm[Hg] Dr. Catia Christian Work Phone: [facility] 01-30-2022 13:38-0500 Body temperature 97.7 [degF] Dr. Catia Christian Work Phone: [facility] 01-30-2022 13:38-0500 Diastolic blood pressure 86 mm[Hg] Dr. Catia Christian Work Phone: [facility] 01-30-2022 13:38-0500 Heart rate 68 /min Dr. Catia Christian Work Phone: [facility] 01-30-2022 13:38-0500 Respiratory rate 16 /min Dr. Catia Christian Work Phone: [facility] 01-30-2022 13:38-0500 SaO2% (BldA) [Mass fraction] 94 % Dr. Catia Christian Work Phone: [facility] 01-30-2022 13:38-0500 Systolic blood pressure 156 mm[Hg] Dr. Catia Christian Work Phone: [facility] 01-25-2022 15:11-0500 Body height 152.[address] Catia Christian Work Phone: [facility] 01-25-2022 15:11-0500 Body weight 63.[address] Catia Christian Work Phone: [facility] 01-19-2022 17:43-0500 Heart rate 72 /min Dr. Catia Christian Work Phone: [facility] Work Phone: 01-19-2022 17:42-0500 Diastolic blood pressure 93 mm[Hg] Dr. Catia Christian Work Phone: [facility] Work Phone: 01-19-2022 17:42-0500 Systolic blood pressure 161 mm[Hg] Dr. Catia Christian Work Phone: [facility] Work Phone: 01-19-2022 15:10-0500 Body temperature 97.7 [degF] Dr. Catia Christian Work Phone: [facility] Work Phone: 01-19-2022 15:10-0500 Respiratory rate 16 /min Dr. Catia Christian Work Phone: [facility] Work Phone: 01-19-2022 15:10-0500 SaO2% (BldA) [Mass fraction] 93 % Dr. Catia Christian Work Phone: [facility] Work Phone: 01-18-2022 14:08-0500 Body height 152.[address] Catia Christian Work Phone: [facility] Work Phone: 01-18-2022 14:08-0500 Body weight 63.[address] Catia Christian Work Phone: [facility] Work Phone: 01-03-2022 18:15-0500 Body mass index (BMI) [Ratio] 27.4 kg/m2 Dr. Catia Christian Work Phone: [facility] 01-03-2022 16:09-0500 Body mass index (BMI) [Ratio] 27.6 kg/m2 Dr. Catia Christian Work Phone: [facility] 01-03-2022 15:38-0500 Body temperature 97.9 [degF] Dr. Catia Christian Work Phone: [facility] 01-03-2022 15:38-0500 Diastolic blood pressure 99 mm[Hg] Dr. Catia Christian Work Phone: [facility] 01-03-2022 15:38-0500 Heart rate 85 /min Dr. Catia Christian Work Phone: [facility] 01-03-2022 15:38-0500 Respiratory rate 16 /min Dr. Catia Christian Work Phone: [facility] 01-03-2022 15:38-0500 SaO2% (BldA) [Mass fraction] 96 % Dr. Catia Christian Work Phone: [facility] 01-03-2022 15:38-0500 Systolic blood pressure 164 mm[Hg] Dr. Catia Christian Work Phone: [facility] 01-03-2022 13:00-0500 Body height 152.[address] Catia Christian Work Phone: [facility] Work Phone: 01-03-2022 13:00-0500 Body weight 64.[address] Catia Christian Work Phone: [facility] 01-03-2022 03:47-0500 Inhaled oxygen flow rate 2 L/min Dr. Catia Christian Work Phone: [facility] 01-02-2022 04:30-0500 Diastolic blood pressure 88 mm[Hg] [facility] Work Phone: 01-02-2022 04:30-0500 Heart rate 96 /min [facility] Work Phone: 01-02-2022 04:30-0500 Respiratory rate 18 /min [facility] Work Phone: 01-02-2022 04:30-0500 SaO2% (BldA) [Mass fraction] 96 % [facility] Work Phone: 01-02-2022 04:30-0500 Systolic blood pressure 158 mm[Hg] [facility] Work Phone: 01-02-2022 04:00-0500 Body temperature 98.2 [degF] [facility] Work Phone: 01-02-2022 02:27-0500 Body height 152.4 cm [facility] Work Phone: 01-02-2022 02:27-0500 Body mass index (BMI) [Ratio] 29 kg/m2 [facility] Work Phone: 01-02-2022 02:27-0500 Body weight 67.4 kg [facility] Work Phone: 12-27-2021 08:03-0500 Body temperature 98.4 [degF] [facility] 12-27-2021 08:03-0500 Diastolic blood pressure 86 mm[Hg] [facility] 12-27-2021 08:03-0500 Heart rate 98 /min [facility] 12-27-2021 08:03-0500 SaO2% (BldA) [Mass fraction] 97 % [facility] 12-27-2021 08:03-0500 Systolic blood pressure 153 mm[Hg] [facility] 11-03-2021 08:13-0400 Body height 152.4 cm [facility] Work Phone: 11-03-2021 08:13-0400 Body mass index (BMI) [Ratio] 26.9 kg/m2 [facility] 11-03-2021 08:13-0400 Body temperature 97.2 [degF] [facility] 11-03-2021 08:13-0400 Body weight 62.59 kg [facility] 11-03-2021 08:13-0400 Diastolic blood pressure 72 mm[Hg] [facility] 11-03-2021 08:13-0400 Heart rate 86 /min [facility] 11-03-2021 08:13-0400 Respiratory rate 14 /min [facility] 11-03-2021 08:13-0400 SaO2% (BldA) [Mass fraction] 100 % [facility] 11-03-2021 08:13-0400 Systolic blood pressure 131 mm[Hg] [facility] 11-02-2021 08:13-0400 Body mass index (BMI) [Ratio] 26.9 kg/m2 [facility] 11-02-2021 08:13-0400 Body temperature 97.8 [degF] [facility] 11-02-2021 08:13-0400 Body weight 62.59 kg [facility] 11-02-2021 08:13-0400 Diastolic blood pressure 95 mm[Hg] [facility] 11-02-2021 08:13-0400 Heart rate 95 /min [facility] 11-02-2021 08:13-0400 Respiratory rate 14 /min [facility] 11-02-2021 08:13-0400 SaO2% (BldA) [Mass fraction] 98 % [facility] 11-02-2021 08:13-0400 Systolic blood pressure 152 mm[Hg] [facility] 09-08-2021 11:15-0400 Diastolic blood pressure 75 mm[Hg] Dr. Catia Christian Work Phone: [facility] Work Phone: 09-08-2021 11:15-0400 Heart rate 72 /min Dr. Catia Christian Work Phone: [facility] Work Phone: 09-08-2021 11:15-0400 Systolic blood pressure 140 mm[Hg] Dr. Catia Christian Work Phone: [facility] Work Phone: 09-08-2021 08:08-0400 Body height 153.[address] Catia Christian Work Phone: [facility] Work Phone: 09-08-2021 08:08-0400 Body mass index (BMI) [Ratio] 25.9 kg/m2 Dr. Catia Christian Work Phone: [facility] Work Phone: 09-08-2021 08:08-0400 Body temperature 96.3 [degF] Dr. Catia Christian Work Phone: [facility] Work Phone: 09-08-2021 08:08-0400 Body weight 61.[address] Catia Christian Work Phone: [facility] Work Phone: 09-08-2021 08:08-0400 Respiratory rate 14 /min Dr. Catia Christian Work Phone: [facility] Work Phone: 09-08-2021 08:08-0400 SaO2% (BldA) [Mass fraction] 97 % Dr. Catia Christian Work Phone: [facility] Work Phone: 09-07-2021 11:24-0400 Body temperature 96.1 [degF] Dr. Catia Christian Work Phone: [facility] Work Phone: 09-07-2021 11:24-0400 Diastolic blood pressure 73 mm[Hg] Dr. Catia Christian Work Phone: [facility] Work Phone: 09-07-2021 11:24-0400 Heart rate 73 /min Dr. Catia Christian Work Phone: [facility] Work Phone: 09-07-2021 11:24-0400 Respiratory rate 16 /min Dr. Catia Christian Work Phone: [facility] Work Phone: 09-07-2021 11:24-0400 SaO2% (BldA) [Mass fraction] 97 % Dr. Catia Christian Work Phone: [facility] Work Phone: 09-07-2021 11:24-0400 Systolic blood pressure 147 mm[Hg] Dr. Catia Christian Work Phone: [facility] Work Phone: 07-12-2021 13:20-0400 Body height 153.[address] Catia Christian Work Phone: [facility] Work Phone: 07-12-2021 13:20-0400 Body temperature 97.3 [degF] Dr. Catia Christian Work Phone: [facility] Work Phone: 07-12-2021 13:20-0400 Diastolic blood pressure 89 mm[Hg] Dr. Catia Christian Work Phone: [facility] Work Phone: 07-12-2021 13:20-0400 Heart rate 94 /min Dr. Catia Christian Work Phone: [facility] Work Phone: 07-12-2021 13:20-0400 Respiratory rate 16 /min Dr. Catia Christian Work Phone: [facility] Work Phone: 07-12-2021 13:20-0400 Systolic blood pressure 171 mm[Hg] Dr. Catia Christian Work Phone: [facility] Work Phone: 07-08-2021 07:59-0400 Body mass index (BMI) [Ratio] 25.9 kg/m2 Dr. Catia Christian Work Phone: [facility] Work Phone: 07-08-2021 07:59-0400 Body temperature 98.1 [degF] Dr. Catia Christian Work Phone: [facility] Work Phone: 07-08-2021 07:59-0400 Body weight 61.[address] Catia Christian Work Phone: [facility] Work Phone: 07-08-2021 07:59-0400 Diastolic blood pressure 79 mm[Hg] Dr. Catia Christian Work Phone: [facility] Work Phone: 07-08-2021 07:59-0400 Heart rate 85 /min Dr. Catia Christian Work Phone: [facility] Work Phone: 07-08-2021 07:59-0400 Respiratory rate 16 /min Dr. Catia Christian Work Phone: [facility] Work Phone: 07-08-2021 07:59-0400 SaO2% (BldA) [Mass fraction] 97 % Dr. Catia Christian Work Phone: [facility] Work Phone: 07-08-2021 07:59-0400 Systolic blood pressure 143 mm[Hg] Dr. Catia Christian Work Phone: [facility] Work Phone: 07-07-2021 08:01-0400 Body mass index (BMI) [Ratio] 25.9 kg/m2 Dr. Catia Christian Work Phone: [facility] Work Phone: 07-07-2021 08:01-0400 Body temperature 97.6 [degF] Dr. Catia Christian Work Phone: [facility] Work Phone: 07-07-2021 08:01-0400 Body weight 61.[address] Catia Christian Work Phone: [facility] Work Phone: 07-07-2021 08:01-0400 Diastolic blood pressure 94 mm[Hg] Dr. Catia Christian Work Phone: [facility] Work Phone: 07-07-2021 08:01-0400 Heart rate 95 /min Dr. Catia Christian Work Phone: [facility] Work Phone: 07-07-2021 08:01-0400 Respiratory rate 16 /min Dr. Catia Christian Work Phone: [facility] Work Phone: 07-07-2021 08:01-0400 SaO2% (BldA) [Mass fraction] 96 % Dr. Catia Christian Work Phone: [facility] Work Phone: 07-07-2021 08:01-0400 Systolic blood pressure 151 mm[Hg] Dr. Catia Christian Work Phone: [facility] Work Phone: 06-07-2021 14:34-0400 Body mass index (BMI) [Ratio] 27.1 kg/m2 Dr. Catia Christian Work Phone: [facility] Work Phone: 06-07-2021 14:34-0400 Body temperature 96.7 [degF] Dr. Catia Christian Work Phone: [facility] Work Phone: 06-07-2021 14:34-0400 Body weight 64.[address] Catia Christian Work Phone: [facility] Work Phone: 06-07-2021 14:34-0400 Diastolic blood pressure 82 mm[Hg] Dr. Catia Christian Work Phone: [facility] Work Phone: 06-07-2021 14:34-0400 Heart rate 99 /min Dr. Catia Christian Work Phone: [facility] Work Phone: 06-07-2021 14:34-0400 Respiratory rate 18 /min Dr. Catia Christian Work Phone: [facility] Work Phone: 06-07-2021 14:34-0400 SaO2% (BldA) [Mass fraction] 97 % Dr. Catia Christian Work Phone: [facility] Work Phone: 06-07-2021 14:34-0400 Systolic blood pressure 140 mm[Hg] Dr. Catia Christian Work Phone: [facility] Work Phone: 06-07-2021 14:34-0400 Body mass index (BMI) [Ratio] 27.1 kg/m2 Dr. Catia Christian Work Phone: [facility] Work Phone: 06-07-2021 14:34-0400 Body temperature 96.7 [degF] Dr. Catia Christian Work Phone: [facility] Work Phone: 06-07-2021 14:34-0400 Body weight 64.[address] Catia Christian Work Phone: [facility] Work Phone: 06-07-2021 14:34-0400 Diastolic blood pressure 82 mm[Hg] Dr. Catia Christian Work Phone: [facility] Work Phone: 06-07-2021 14:34-0400 Heart rate 99 /min Dr. Catia Christian Work Phone: [facility] Work Phone: 06-07-2021 14:34-0400 Respiratory rate 18 /min Dr. Catia Christian Work Phone: [facility] Work Phone: 06-07-2021 14:34-0400 SaO2% (BldA) [Mass fraction] 97 % Dr. Catia Christian Work Phone: [facility] Work Phone: 06-07-2021 14:34-0400 Systolic blood pressure 140 mm[Hg] Dr. Catia Christian Work Phone: [facility] Work Phone: 05-11-2021 08:30-0400 Body height 152.4 cm [facility] Work Phone: 05-11-2021 08:30-0400 Body mass index (BMI) [Ratio] 26.7 kg/m2 [facility] Work Phone: 05-11-2021 08:30-0400 Body temperature 97.5 [degF] [facility] Work Phone: 05-11-2021 08:30-0400 Body weight 62.14 kg [facility] Work Phone: 05-11-2021 08:30-0400 Diastolic blood pressure 77 mm[Hg] [facility] Work Phone: 05-11-2021 08:30-0400 Heart rate 77 /min [facility] Work Phone: 05-11-2021 08:30-0400 Respiratory rate 12 /min [facility] Work Phone: 05-11-2021 08:30-0400 SaO2% (BldA) [Mass fraction] 96 % [facility] Work Phone: 05-11-2021 08:30-0400 Systolic blood pressure 143 mm[Hg] [facility] Work Phone: 05-10-2021 08:19-0400 Body temperature 97.5 [degF] [facility] Work Phone: 05-10-2021 08:19-0400 Diastolic blood pressure 84 mm[Hg] [facility] Work Phone: 05-10-2021 08:19-0400 Heart rate 90 /min [facility] Work Phone: 05-10-2021 08:19-0400 Respiratory rate 16 /min [facility] Work Phone: 05-10-2021 08:19-0400 SaO2% (BldA) [Mass fraction] 98 % [facility] Work Phone: 05-10-2021 08:19-0400 Systolic blood pressure 161 mm[Hg] [facility] Work Phone: 03-16-2021 06:56-0500 Body mass index (BMI) [Ratio] 26.4 kg/m2 [facility] Work Phone: 03-16-2021 06:56-0500 Body temperature 97.1 [degF] [facility] Work Phone: 03-16-2021 06:56-0500 Body weight 61.23 kg [facility] Work Phone: 03-16-2021 06:56-0500 Diastolic blood pressure 86 mm[Hg] [facility] Work Phone: 03-16-2021 06:56-0500 Heart rate 86 /min [facility] Work Phone: 03-16-2021 06:56-0500 Respiratory rate 16 /min [facility] Work Phone: 03-16-2021 06:56-0500 SaO2% (BldA) [Mass fraction] 95 % [facility] Work Phone: 03-16-2021 06:56-0500 Systolic blood pressure 146 mm[Hg] [facility] Work Phone: 03-15-2021 07:24-0500 Body temperature 98.1 [degF] [facility] Work Phone: 03-15-2021 07:24-0500 Diastolic blood pressure 79 mm[Hg] [facility] Work Phone: 03-15-2021 07:24-0500 Heart rate 91 /min [facility] Work Phone: 03-15-2021 07:24-0500 Respiratory rate 16 /min [facility] Work Phone: 03-15-2021 07:24-0500 SaO2% (BldA) [Mass fraction] 99 % [facility] Work Phone: 03-15-2021 07:24-0500 Systolic blood pressure 149 mm[Hg] [facility] Work Phone: 10-10-2016 10:57-0400 BMI (Body Mass Index) 26.32 kg/m2 [facility] Work Phone: 10-10-2016 10:57-0400 Body Temperature 98 [degF] [facility] Work Phone: 10-10-2016 10:57-0400 BP Diastolic 102 mm[Hg] [facility] Work Phone: 10-10-2016 10:57-0400 BP Systolic 178 mm[Hg] [facility] Work Phone: 10-10-2016 10:57-0400 Height 153.03 cm [facility] Work Phone: 10-10-2016 10:57-0400 Pulse (Heart Rate) 83 /min [facility] Work Phone: 10-10-2016 10:57-0400 Respiratory Rate 20 /min [facility] [facility] Work Phone: 10-10-2016 10:57-0400 Weight 61.64 kg [facility] Work Phone: 12-02-2014 08:33-0400 Body Temperature 97.6 [degF] Bel Kaiser RN RN [facility] Work Phone: 12-02-2014 08:33-0400 BP Diastolic 88 mm[Hg] Bel Kaiser RN RN [facility] Work Phone: 12-02-2014 08:33-0400 BP Systolic 138 mm[Hg] Bel Kaiser RN RN [facility] Work Phone: 12-02-2014 08:33-0400 Pulse (Heart Rate) 101 /min Bel Kaiser RN RN [facility] Work Phone: 12-02-2014 08:33-0400 Respiratory Rate 16 /min Bel Kaiser RN RN [facility] Work Phone: 12-02-2014 08:33-0400 Weight 68.49 kg Bel Kaiser RN RN [facility] Work Phone: 08-24-2014 10:57-0400 BMI (Body Mass Index) 28.47 kg/m2 Bel Kaiser RN RN [facility] Work Phone: 08-24-2014 10:57-0400 BSA (Body Surface Area) 1.64 m2 Bel Kaiser RN RN [facility] Work Phone: 06-01-2014 09:11-0400 Pulse Oximetry 96 % Bel Kaiser RN RN [facility] Work Phone: 01-12-2014 13:03-0500 Height 153.03 cm Bel Kaiser RN RN [facility] Work Phone: Encounters Encounter Date Encounter Type Care Provider Facility Start: 08-01-2024 ambulatory [facility] Facility :[facility] Start: 07-30-2024 End: 07-30-[address] Natalie Rodriguez MD -Medical Out Work Phone: Start: 07-30-2024 End: 07-30-[address] Catia Christian DO Work Phone: [facility] Work Phone: Start: 06-12-2024 End: 06-12-[address] Catia Christian DO Work Phone: [facility] Work Phone: Start: 06-12-2024 End: 06-12-[address] Natlaie Rodriguez MD -Laboratory, [place] Work Phone: Start: 06-12-2024 End: 06-12-2024 ambulatory [facility] Facility:[facility] Start: 06-04-2024 End: 06-04-[address] Natalie Rodriguez MD -Medical Out Work Phone: Start: 06-04-2024 End: 06-04-2024 ambulatory [facility] Facility:[facility] Start: 06-02-2024 End: 06-02-[address] Natalie Rodriguez MD -Medical Out Work Phone: Start: 06-02-2024 End: 06-02-2024 ambulatory Catia Jarenephraim Facility:[facility] Start: 04-22-2024 End: 04-22-[address] Catia Christian DO Work Phone: [facility] Work Phone: Start: 04-22-2024 End: 04-22-[address] Catia Christian DO -Laboratory, [facility] Work Phone: Start: 04-22-2024 End: 04-22-2024 [facility] Start: 04-11-2024 End: 04-11-[address] Catia Christian DO -Medical Out Work Phone: Start: 04-11-2024 End: 04-11-[address] Catia Christian DO Work Phone: [facility] Work Phone: Start: 04-09-2024 End: 04-09-[address] Natalie Rodriguez MD -Medical Out Work Phone: Start: 04-09-2024 End: 04-09-2024 [facility] Start: 02-15-2024 End: 02-15-[address] Natalie Rodriguez MD -Medical Out Work Phone: Start: 02-15-2024 End: 02-15-2024 [facility] Start: 02-13-2024 End: 02-13-[address] Natalie Rodriguez MD -Medical Out Work Phone: Start: 02-13-2024 End: 02-13-2024 ambulatory Natalie Rodriguez Facility:[facility] Start: 01-22-2024 End: 01-22-[address] Natalie Rodriguez MD -Laboratory, [place] Work Phone: Start: 01-22-2024 End: 01-22-2024 [facility] Start: 12-13-2023 End: 12-13-2023 ambulatory [facility] Facility:[facility] Start: 12-12-2023 End: 12-12-2023 ambulatory [facility] Facility:[facility] Start: 11-02-2023 End: 11-02-2023 ambulatory [facility] Facility:[facility] Start: 10-19-2023 End: 10-19-2023 ambulatory [facility] Facility:[facility] Start: 10-17-2023 End: 10-17-2023 ambulatory [facility] Facility:[facility] Start: 09-04-2023 End: 09-04-2023 ambulatory [facility] Facility:[facility] Start: 08-23-2023 End: 08-23-2023 ambulatory [facility] Facility:[facility] Start: 08-22-2023 End: 08-22-2023 ambulatory [facility] Facility:[facility] Start: 08-20-2023 ambulatory Catia Christian Facility:[facility] Start: 05-16-2023 End: 05-16-2023 ambulatory [facility] Work Phone: Start: 05-16-2023 End: 05-16-2023 [facility] encounter [facility] Start: 05-10-2023 End: 05-10-2023 ambulatory [facility] Work Phone: Start: 05-10-2023 End: 05-10-2023 Patient encounter procedure [facility]-Medical Out Work Phone: Start: 05-09-2023 End: 05-09-2023 ambulatory [facility] Work Phone: Start: 05-09-2023 End: 05-09-2023 Patient encounter procedure [facility]-Medical Out Work Phone: Start: 04-06-2023 End: 04-06-2023 Emergency department patient visit [facility]-Emergency Department Work Phone: Start: 03-23-2023 End: 03-23-2023 ambulatory [facility] Work Phone: Start: 03-23-2023 End: 03-23-2023 Patient encounter procedure [facility]-Medical Out Work Phone: Start: 03-09-2023 End: 03-09-2023 Patient encounter procedure [facility]-Medical Out Work Phone: Start: 03-08-2023 End: 03-08-2023 Patient encounter procedure [facility]-Medical Out Work Phone: Start: 01-17-2023 End: 01-17-2023 ambulatory [facility] Work Phone: Start: 01-17-2023 End: 01-17-2023 Discharged Recurring [facility]-Physical Therapy Work Phone: Start: 01-15-2023 End: 01-15-2023 ambulatory [facility] Work Phone: Start: 01-15-2023 End: 01-15-2023 Patient encounter procedure [facility]-Medical Out Work Phone: Start: 01-11-2023 End: 01-11-2023 ambulatory [facility] Work Phone: Start: 01-11-2023 End: 01-11-2023 Patient encounter procedure [facility]-Medical Out Work Phone: Start: 01-04-2023 Registered Recurring [facility]-Occupational Therapy Work Phone: Start: 11-30-2022 Registered Recurring [facility]-Occupational Therapy Work Phone: Start: 11-24-2022 End: 11-24-2022 ambulatory [facility] Work Phone: Start: 11-24-2022 End: 11-24-2022 Patient encounter procedure [facility] Work Phone: Start: 11-09-2022 End: 11-09-2022 Patient encounter procedure [facility]-Medical Out Work Phone: Start: 11-08-2022 End: 11-08-2022 ambulatory [facility] Work Phone: Start: 11-08-2022 End: 11-08-2022 Patient encounter procedure [facility]-Medical Out Work Phone: Start: 10-19-2022 Registered Recurring [facility]Occupational Therapy Work Phone: Start: 09-22-2022 End: 09-22-2022 Patient encounter procedure [facility]-Medical Out Work Phone: Start: 09-07-2022 End: 09-07-[address] Catia Christian Work Phone: [facility] Work Phone: Start: 09-07-2022 End: 09-07-[address] Catia Christian Work Phone: [facility]-Medical Out Work Phone: Start: 09-06-2022 End: 09-06-[address] Catia Christian Work Phone: [facility] Work Phone: Start: 09-06-2022 End: 09-06-[address] Catia Christian Work Phone: [facility]-Medical Out Work Phone: Start: 08-30-[address] Catia Christian Work Phone: [facility]-Physical Therapy Work Phone: Start: 08-14-2022 End: 08-14-[address] Catia Christain Work Phone: [facility] Work Phone: Start: 08-14-2022 End: 08-14-[address] Catia Christian Work Phone: [facility] Work Phone: Start: 07-13-2022 End: 07-13-[address] [facility] Start: 07-12-2022 End: 07-12-[address] Catia Christian Work Phone: [facility] Work Phone: Start: 07-12-2022 End: 07-12-[address] [facility] Start: 05-29-2022 End: 05-29-[address] Catia Christian Work Phone: [facility] Work Phone: Start: 05-29-2022 End: 05-29-[address] Catia Christian Work Phone: [address] Start: 05-25-2022 End: 05-25-[address] Catia Christian Work Phone: [facility] Start: 05-18-2022 End: 05-18-[address] Catia Christian Work Phone: [facility] Work Phone: Start: 05-18-2022 End: 05-18-[address] [facility]Cristian [facility] Start: 05-17-2022 End: 05-17-[address] [facility] Start: 05-02-2022 Non-patient / Non-visit Dr. Rosalee Christian Work Phone: [facility] Start: 05-02-2022 End: 05-02-[address] Catia Christian Work Phone: [facility] Work Phone: Start: 05-02-2022 End: 05-02-[address] Catia Christian Work Phone: [facility]-Cardiovascular Services Start: 04-12-2022 End: 04-12-[address] Catia Christian Work Phone: [facility] Work Phone: Start: 04-12-2022 End: 04-12-[address] Catia Christian Work Phone: [facility]-Laboratory, Phy Office [address] [place] [address] Start: 03-24-2022 End: 03-24-[address] Catia Christian Work Phone: [facility] Work Phone: Start: 03-24-2022 End: 03-24-[address] Catia Christian Work Phone: [facility]-Medical Out Start: 03-23-2022 End: 03-23-[address] Catia Christian Work Phone: [facility] Work Phone: Start: 03-23-2022 End: 03-23-[address] Catia Christian Work Phone: [facility]-Medical Out Start: 02-20-2022 End: 02-20-[address] Catia Christian Work Phone: [facility] Work Phone: Start: 02-20-2022 End: 02-20-[address] Catia Christian Work Phone: [facility] Start: 01-13-2022 End: 01-13-[address] Catia Christian Work Phone: [facility] Work Phone: Start: 01-13-2022 End: 01-13-[address] Catia Christian Work Phone: [facility]-Cardiovascular Services Start: 01-03-2022 End: 01-30-2022 Evaluation and management of inpatient Dr. Catia Christian Work Phone: [facility]-Transitional Care Unit Start: 01-03-2022 Non-patient / Non-visit Dr. Rosalee Christian Work Phone: [facility] Phys[facility] Start: 01-02-2022 End: 01-03-2022 Evaluation and management of inpatient [facility] Cat[facility] Start: 01-02-2022 Non-patient / Non-visit Dr. Rosalee Christian Work Phone: [facility] Start: 01-02-2022 Non-patient / Non-visit Dr. Rosalee Christian Work Phone: [facility] Start: 01-02-2022 End: 01-03-2022 [facility] Start: 01-02-2022 observation encounter [facility] Work Phone: Start: 12-27-2021 End: 12-27-2021 ambulatory [facility] Work Phone: Start: 12-27-2021 End: 12-27-2021 Patient encounter procedure [facility]-Medical Out Start: 11-14-2021 End: 11-14-2021 ambulatory [facility] Work Phone: Start: 11-14-2021 End: 11-14-2021 Patient encounter procedure [facility]-Outpatient Breast Imaging Start: 11-03-2021 End: 11-03-2021 ambulatory [facility] Work Phone: Start: 11-03-2021 End: 11-03-2021 Patient encounter procedure [facility]-Medical Out Start: 11-02-2021 End: 11-02-2021 ambulatory [facility] Work Phone: Start: 11-02-2021 End: 11-02-2021 Patient encounter procedure [facility]-Medical Out Start: 10-21-2021 End: 10-21-2021 ambulatory [facility] Work Phone: Start: 10-21-2021 End: 10-21-2021 Patient encounter procedure [facility] Start: 09-08-2021 End: 09-08-[address] Catia Christian Work Phone: [facility]-Medical Out Start: 09-07-2021 End: 09-07-[address] [facility] Start: 07-12-2021 End: 07-12-[address] Catia Christian Work Phone: [facility]-Medical Out Start: 07-08-2021 End: 07-08-[address] Catia Christian Work Phone: [facility]-Medical Out Start: 07-07-2021 End: 07-07-[address] [facility] Start: 06-24-2021 End: 06-24-[address] Catia Christian Work Phone: [facility] Start: 06-07-2021 End: 06-07-[address] Catia Christian Work Phone: [facility] Endocr[facility] Start: 05-11-2021 End: 05-11-2021 Patient encounter procedure [facility]-Medical Out Start: 05-10-2021 End: 05-10-2021 Patient encounter procedure [facility]-Medical Out Start: 04-11-2021 End: 04-11-2021 Patient encounter procedure [facility] Start: 03-16-2021 End: 03-16-2021 Patient encounter procedure [facility]-Medical Out Start: 03-15-2021 End: 03-15-2021 Patient encounter procedure [facility]-Medical Out Start: 03-08-2021 Patient encounter procedure [facility] Start: 06-25-2014 End: 08-03-2016 Encounter for general adult medical examination without abnormal findings Bel Kaiser RN RN [facility] Work Phone: Procedures Date Procedure Procedure Detail Performing Clinician Start: 04-06-2023 CT of chest without contrast Start: 04-06-2023 CT of head without contrast Start: 04-06-2023 X-ray of chest posteroanterior view Start: 04-12-2022 Plain chest X-ray Dr. Catia Chritsian Work Phone: Start: 01-17-2022 X-ray of chest posteroanterior view Dr. Catia Christian Work Phone: Start: 01-17-2022 Plain x-ray of pelvis and lower extremity Dr. Catia Christian Work Phone: Start: 01-12-[address] Catia Christian Work Phone: Start: 01-02-2022 MRI of brain without contrast Dr. Catia Christian Work Phone: Start: 01-02-2022 CT angiography of head and neck Start: 01-02-2022 CT of head without contrast Start: 01-02-2022 Plain chest X-ray Start: 11-14-2021 Screening mammography Start: 08-24-2014 End: 12-01-2014 Lipid panel [AGGREGATE] Catia hCristian DO Work Phone: Start: 05-04-2014 End: 07-14-2014 *CBC with Differential Catia Christian DO Work Phone: Start: 05-04-2014 End: 07-10-2014 *CMP Complete Metabolic Panel Catia Christian DO Work Phone: Start: 05-04-2014 End: 07-14-2014 Follow Up Appt 3 months Catia Christian DO Work Phone: Start: 03-05-2014 End: 04-02-2014 *PAPIG6 Cytopath, Cerv/Vag, Fluid Auto Redo Catia Christian DO Work Phone: Start: 03-05-2014 End: 08-03-2016 Screening for malignant neoplasm of cervix Screening, cervical cancer Bel Kaiser RN RN Start: 02-17-2014 End: 07-14-2014 Mammogram, Screening, both breasts Catia Christian DO Work Phone: Start: 02-17-2014 End: 08-03-2016 Screening for malignant neoplasm of breast Screening for breast cancer Bel Kaiser RN RN Start: 01-12-2014 End: 01-15-2014 Lipid panel [AGGREGATE] Catia Christian DO Work Phone: Viral antigen assay Dr. Catia Christian Work Phone: Viral antigen assay Dr. Catia Christian Work Phone: Viral antigen assay Dr. Catia Christian Work Phone: Plan of Treatment Date Care Activity Detail Author Start: 06-02-2024 Iv infusion therapy prophylaxis/dx ea hour THER/PROPH/DIAG IV INF [facility] Start: 06-02-2024 Iv infusion therapy/prophylaxis /dx 1st to 1 hr THER/PROPH/DIAG IV INF [facility] Start: 04-09-2024 Iv infusion therapy prophylaxis/dx ea hour THER/PROPH/DIAG IV INF [facility] Start: 04-09-2024 Iv infusion therapy/prophylaxis /dx 1st to 1 hr THER/PROPH/DIAG IV INF [facility] Start: 02-13-2024 Iv infusion therapy prophylaxis/dx ea hour THER/PROPH/DIAG IV INF [facility] Start: 02-13-2024 Iv infusion therapy/prophylaxis /dx 1st to 1 hr THER/PROPH/DIAG IV INF [facility] Start: 05-09-2023 Iv infusion therapy prophylaxis/dx ea hour THER/PROPH/DIAG IV INF [facility] Start: 05-09-2023 Iv infusion therapy/prophylaxis /dx 1st to 1 hr THER/PROPH/DIAG IV INF [facility] Start: 04-06-2023 [facility] Start: 11-08-2022 Iv infusion therapy prophylaxis/dx ea hour THER/PROPH/DIAG IV INF [facility] Start: 11-08-2022 Iv infusion therapy/prophylaxis /dx 1st to 1 hr THER/PROPH/DIAG IV INF [facility] Start: 09-07-2022 Iv infusion therapy prophylaxis/dx ea hour THER/PROPH/DIAG IV INF [facility] Start: 09-07-2022 Iv infusion therapy/prophylaxis /dx 1st to 1 hr THER/PROPH/DIAG IV INF [facility] Start: 07-13-2022 Iv infusion therapy prophylaxis/dx ea hour THER/PROPH/DIAG IV INF [facility] Start: 07-13-2022 Iv infusion therapy/prophylaxis /dx 1st to 1 hr THER/PROPH/DIAG IV INF [facility] Start: 05-18-2022 Iv infusion therapy prophylaxis/dx ea hour THER/PROPH/DIAG IV INF [facility] Start: 05-18-2022 Iv infusion therapy/prophylaxis /dx 1st to 1 hr THER/PROPH/DIAG IV INF [facility] Start: 03-24-2022 Iv infusion therapy prophylaxis/dx ea hour THER/PROPH/DIAG IV INF [facility] Start: 03-24-2022 Iv infusion therapy/prophylaxis /dx 1st to 1 hr THER/PROPH/DIAG IV INF [facility] Start: 02-01-2022 Blood chemistry [facility] Work Phone: Start: 01-31-2022 Development of care plan [facility] Start: 01-30-2022 Patient discharge [facility] Start: 01-25-2022 Blood chemistry [facility] Work Phone: Start: 01-18-2022 Enteric precautions [facility] Work Phone: Start: 01-13-2022 Application of elastic bandage [facility] Start: 01-06-2022 [facility] Start: 01-04-2022 Development of care plan [facility] Start: 01-04-2022 Speech therapy management [facility] Start: 01-04-2022 Developing a treatment plan [facility] Start: 01-04-2022 Verification routine [facility] Work Phone: Start: 01-04-2022 [facility] Start: 01-03-2022 Following clinical pathway protocol [facility] Start: 01-03-2022 Speech therapy assessment [facility] Start: 01-03-2022 Admission procedure [facility] Start: 01-03-2022 Measuring intake and output [facility] Start: 01-03-2022 Patient referral to dietitian [facility] Start: 01-03-2022 Referral to occupational therapist [facility] Start: 01-03-2022 Referral to service [facility] Start: 01-03-2022 Vital signs measurements [facility] Start: 01-03-2022 [facility] Start: 01-03-2022 Patient discharge [facility] Start: 01-03-2022 Patient referral to [facility] Start: 01-02-2022 Admission procedure [facility] Start: 01-02-2022 Speech therapy assessment [facility] Start: 01-02-2022 Assessment of risk of venous thromboembolism [facility] Start: 01-02-2022 Cardiac monitoring [facility] Start: 01-02-2022 Catheterization of vein [facility] Start: 01-02-2022 Elevation of head of bed [facility] Start: 01-02-2022 Exercises [facility] Start: 01-02-2022 Implementation of planned interventions [facility] Start: 01-02-2022 Insertion of catheter into peripheral vein [facility] Start: 01-02-2022 Measuring intake and output [facility] Start: 01-02-2022 Notification of physician [facility] Start: 01-02-2022 Oxygen therapy [facility] Start: 01-02-2022 Providing care according to standard [facility] Start: 01-02-2022 Provision of activity privileges [facility] Start: 01-02-2022 Referral to occupational therapist [facility] Start: 01-02-2022 Referral to service [facility] Start: 01-02-2022 Tobacco use cessation education [facility] Start: 01-02-2022 [facility] Start: 01-02-2022 Following clinical pathway protocol [facility] Start: 01-02-2022 Verification routine [facility] Work Phone: Start: 01-02-2022 Admission procedure [facility] Start: 01-02-2022 Oxygen therapy [facility] Work Phone: Start: 01-02-2022 [facility] Work Phone: Start: 12-27-2021 Iv infusion therapy prophylaxis/dx ea hour THER/PROPH/DIAG IV INF [facility] Start: 12-27-2021 Iv infusion therapy/prophylaxis /dx 1st to 1 hr THER/PROPH/DIAG IV INF [facility] Start: 11-03-2021 Iv infusion therapy prophylaxis/dx ea hour THER/PROPH/DIAG IV INF [facility] Work Phone: Start: 11-03-2021 Iv infusion therapy/prophylaxis /dx 1st to 1 hr THER/PROPH/DIAG IV INF [facility] Work Phone: Start: 11-02-2021 Iv infusion therapy prophylaxis/dx ea hour THER/PROPH/DIAG IV INF [facility] Work Phone: Start: 11-02-2021 Iv infusion therapy/prophylaxis /dx 1st to 1 hr THER/PROPH/DIAG IV INF [facility] Work Phone: Start: 09-07-2021 Iv infusion therapy prophylaxis/dx ea hour THER/PROPH/DIAG IV INF [facility] Work Phone: Start: 09-07-2021 Iv infusion therapy/prophylaxis /dx 1st to 1 hr THER/PROPH/DIAG IV INF [facility] Work Phone: Start: 07-08-2021 Iv infusion therapy prophylaxis/dx ea hour THER/PROPH/DIAG IV INF [facility] Work Phone: Start: 07-08-2021 Iv infusion therapy/prophylaxis /dx 1st to 1 hr THER/PROPH/DIAG IV INF [facility] Work Phone: Start: 07-07-2021 Iv infusion therapy prophylaxis/dx ea hour THER/PROPH/DIAG IV INF [facility] Work Phone: Start: 07-07-2021 Iv infusion therapy/prophylaxis /dx 1st to 1 hr THER/PROPH/DIAG IV INF [facility] Work Phone: Start: 05-11-2021 Iv infusion therapy prophylaxis/dx ea hour THER/PROPH/DIAG IV INF [facility] Work Phone: Start: 05-11-2021 Iv infusion therapy/prophylaxis /dx 1st to 1 hr THER/PROPH/DIAG IV INF [facility] Work Phone: Start: 05-10-2021 Iv infusion therapy prophylaxis/dx ea hour THER/PROPH/DIAG IV INF [facility] [facility] Work Phone: Start: 05-10-2021 Iv infusion therapy/prophylaxis /dx 1st to 1 hr THER/PROPH/DIAG IV INF [facility] Work Phone: Start: 10-18-2016 End: 10-18-2016 Appointment [facility] [employer] Work Phone: Start: 10-10-2016 End: 10-17-2016 Bx breast 1st Lesion strtctc Stereotactic localization guidance for breast biopsy [facility] [employer] Work Phone: Start: 10-10-2016 End: 10-10-2016 Mammogram, one breast Mammogram, Diagnositic Unilateral [facility] [employer] Work Phone: Start: 10-10-2016 End: 10-10-2016 Us exam, breast(s) US Breast(s) [facility] [employer] Work Phone: Start: 08-22-2016 End: 08-22-2016 Appointment Appointment [facility] [employer] Work Phone: Start: 04-14-2015 End: 04-14-2015 Mammogram, screening Mammogram, Screening, both breasts [facility] [employer] Work Phone: Start: 08-24-2014 End: 12-01-2014 Lipid panel [AGGREGATE] *Lipid Profile [facility] [employer] Work Phone: Start: 05-04-2014 End: 07-14-2014 *CBC with Differential *CBC with Differential [facility] [employer] Work Phone: Start: 05-04-2014 End: 07-10-2014 *CMP Complete Metabolic Panel *CMP Complete Metabolic Panel [facility] [employer] Work Phone: Start: 05-04-2014 End: 07-14-2014 Follow Up Appt 3 months Follow Up Appt 3 months [facility] [employer] Work Phone: Start: 03-05-2014 End: 04-02-2014 *PAPIG6 Cytopath, Cerv/Vag, Fluid Auto Redo *PAPIG6 Cytopath, Cerv/Vag, Fluid Auto Redo [facility] [employer] Work Phone: Start: 02-17-2014 End: 07-14-2014 Mammogram, Screening, both breasts Mammogram, Screening, both breasts [facility] [employer] Work Phone: Start: 01-12-2014 End: 01-15-2014 Lipid panel [AGGREGATE] *Lipid Profile [facility] [employer] Work Phone: Anion gap measurement [facility] Work Phone: BUN/Creatinine ratio [facility] Work Phone: Calcium [Mass/volume ] in Serum or Plasma [facility] Work Phone: Carbon dioxide, tota l [Moles/volume] in Serum or Plasma [facility] Work Phone: Chloride [Moles/volu me] in Serum or Plasma [facility] Work Phone: Creatinine [Moles/vo lume] in Serum or Plasma [facility] Work Phone: Glucose [Mass/volume ] in Serum or Plasma [facility] Work Phone: Hematocrit [Volume Fraction] of Blood [facility] Work Phone: Hemoglobin [Mass/vol ume] in Blood [facility] Work Phone: Leukocytes [#/volume ] in Blood [facility] Work Phone: Mean corpuscular hemoglobin concentration determination [facility] Work Phone: Mean corpuscular hemoglobin determination [facility] Work Phone: Measurement of renal function [facility] Work Phone: Neutrophil count [facility] Work Phone: Neutrophil percent differential count [facility] Work Phone: Patient Education ED Rib Fracture [facility] Work Phone: Patient referral [facility] Work Phone: Platelets [#/volume] in Blood [facility] Work Phone: Potassium [Moles/vol ume] in Serum or Plasma [facility] Work Phone: Red blood cell count [facility] Work Phone: Red cell distributio n width determination [facility] Work Phone: Sodium [Moles/volume ] in Serum or Plasma [facility] Work Phone: Urea nitrogen [Mass/volume] in Serum or Plasma [facility] Work Phone: Immunizations Immunization Date Immunization Notes Care Provider Fa [facility] 01-05-2022 Pneumococcal Vaccine PCV20 (Prevnar 20) Dr. Catia Christian Work Phone: [facility] 07-20-2021 [facility] ([facility]) Dr. Catia ye Work Phone: [facility] 01-07-2021 [facility] ([facility]) Dr. Catia ye Work Phone: [facility] 03-25-2020 [facility] ([facility]) [facility] 02-26-2020 [facility] ([facility]) [facility] 11-23-2014 pneumococcal conjuga te vaccine, [address] Catia Christian Work Phone: [facility] Payers Date Payer Category Payer Self-pay [id number] 2022 Private Health Insurance [facility] [facility] [place] [id number] 2016 Unknown [id number] Medicare [id number] Unknown [id number] 2.16.8 [id number] Unknown [id number] 2.16.8 [id number] Unknown [id number] 2.16.8 [id number] Unknown [id number] 2.16.8 [id number] Unknown [id number] 2.16.8 [id number] Unknown [id number] 2.16.8 [id number] Unknown [id number] 2.16.8 40.1.280020.3.579.2.462 Unknown [id number] 2.16.8 40.1.644626.3.579.2.462 Unknown [id number] 2.16.8 40.1.853448.3.579.2.462 Unknown [id number] 2.16.8 40.1.536774.3.579.2.462 Unknown [id number] 2.16.8 [id number] Unknown [id number] 2.16.8 [id number] Unknown [id number] 2.16.8 [id number] Unknown [id number] 2.16.8 [id number] Unknown [id number] 2.16.8 [id number] Unknown [id number] 2.16.8 [id number] Unknown [id number] 2.16.8 [id number] Unknown [id number] 2.16.8 [id number] Unknown [id number] 2.16.8 [id number] Unknown [id number] 2.16.8 [id number] Unknown [id number] 2.16.8 [id number] Social History Date Type Detail Facility Start: 03-12-2019 End: 04-06-2023 Tobacco smoking status NHIS Unknown if ever smoked [facility] Start: 06-14-2020 None [facility] Start: 06-14-2020 Alone [facility] Start: 06-14-2020 Non-smoker [facility] Start: 1935 Sex Assigned At Female [facility] Start: 04-06-2023 End: 04-06-2023 Tobacco smoking status NHIS Never smoked tobacco (finding) [facility] Start: 04-12-2024 End: 04-30-2024 Sex Female (finding) [facility] Goals Date Patient Goal Desired Activity /State Functional Status Date Assessment Result Facility 01-30-2022 Functional status Ambulates [facility] Work Phone: 01-28-2022 Functional status Tolerates Activity Fair [facility] Work Phone: 01-19-2022 Functional status Chair [facility] Work Phone: 01-03-2022 Functional status Chair [facility] Work Phone: Mental Status Date Assessment Result Facility 07-30-2024 Cognitive function Awake;Alert;A ppropriate;Follow s Commands [facility] Work Phone: 06-04-2024 Cognitive function Awake;Alert;A ppropriate;Follow s Commands [facility] Work Phone: 06-02-2024 Cognitive function Voice/Name [facility] Work Phone: 04-11-2024 Cognitive function Voice/Name [facility] Work Phone: 04-09-2024 Cognitive function Voice/Name [facility] Work Phone: 02-15-2024 Cognitive function Voice/Name [facility] Work Phone: 02-13-2024 Cognitive function Awake;Alert;A ppropriate;Follow s Commands [facility] Work Phone: 05-10-2023 Cognitive function Awake;Alert;A ppropriate;Follow s Commands [facility] Work Phone: 05-09-2023 Cognitive function Voice/Name [facility] Work Phone: 03-23-2023 Cognitive function Voice/Name [facility] Work Phone: 03-09-2023 Cognitive function Voice/Name [facility] Work Phone: 03-08-2023 Cognitive function Awake;Alert;A ppropriate;Follow s Commands [facility] Work Phone: 01-15-2023 Cognitive function Voice/Name [facility] Work Phone: 01-11-2023 Cognitive function Awake;Alert;Appropriat e [facility] Work Phone: 11-09-2022 Cognitive function Awake;Alert;Appropriat e [facility] Work Phone: 11-08-2022 Cognitive function Voice/Name [facility] Work Phone: 09-22-2022 Cognitive function Voice/Name [facility] Work Phone: 09-07-2022 Cognitive function Voice/Name [facility] Work Phone: 09-06-2022 Cognitive function Voice/Name [facility] Work Phone: 07-13-2022 Cognitive function Voice/Name [facility] Work Phone: 07-12-2022 Cognitive function Voice/Name [facility] Work Phone: 05-18-2022 Cognitive function Voice/Name [facility] Work Phone: 05-17-2022 Cognitive function Voice/Name [facility] Work Phone: 03-24-2022 Cognitive function Voice/Name [facility] Work Phone: 03-23-2022 Cognitive function Voice/Name [facility] Work Phone: 01-30-2022 Cognitive function Voice/Name [facility] Work Phone: 01-29-2022 Cognitive function Comprehension Ability Demonstrates ability to follow instructions/comprehend [facility] Work Phone: 01-19-2022 Cognitive function Voice/Name [facility] Work Phone: 01-03-2022 Cognitive function Voice/Name [facility] Work Phone: 01-02-2022 Cognitive function Voice/Name [facility] Work Phone: 12-27-2021 Cognitive function Level Of Cons ciousness Awake;Alert;Appropriate;Follow s Commands [facility] Work Phone: 11-03-2021 Cognitive function Voice/Name [facility] Work Phone: 11-02-2021 Cognitive function Voice/Name [facility] Work Phone: 09-08-2021 Cognitive function Voice/Name [facility] Work Phone: 09-07-2021 Cognitive function Level Of Cons ciousness Awake;Alert;Appropriate;Follow s Commands [facility] Work Phone: 07-12-2021 Cognitive function Voice/Name [facility] Work Phone: 07-08-2021 Cognitive function Voice/Name [facility] Work Phone: 07-07-2021 Cognitive function Voice/Name [facility] Work Phone: 05-11-2021 Cognitive function Voice/Name [facility] Work Phone: 05-10-2021 Cognitive function Level Of Cons ciousness Awake;Alert;Appropriate;Follow s Commands [facility] Work Phone: 03-16-2021 Cognitive function Voice/Name [facility] Work Phone: 03-15-2021 Cognitive function Awake;Alert;A ppropriate;Follow s Commands [facility] Work Phone: Clinical Notes 05-02-2022 to 04-06-2023 Note Date & Type Note Facility 04-06-2023 Hospital Discharg e instructions Additional Instructions You have a fracture of your left seventh rib. Take Tylenol and use the Lidoderm patches. They also sell [id number] lidocaine patches called Salonpas. Use the Tylenol threes for breakthrough pain. Follow-up with your primary care doctor. Rib fractures can take 6 to 8 weeks to heal. [facility] Work Phone: 11-30-2022 Discharge summary Note Date/Time November 30, 2022 1:14pm [facility] Physical Therapy [facility] [address] [place] [address] / REHABILITATION SERVICES DISCHARGE SUMMARY MR#: [id number] Acct: [id number] Name: DARIAN DOUGLAS Rep #: [id number] : 1935 87 From: Cert. MELANY Posadas, OCS Referring Dr.: Dr. Catia Christian DO Status: REG RCR Insurance: [facility] SELF PAY INSURANCE Discharge Summary D/C summary: It has been my pleasure to treat DARIAN DOUGLAS referred by Dr. Catia Christian DO,with the diagnosis of CEREBRAL INFARCTION for a total of 15 visit(s). Discharge Date: Please see the following information for a summary of their discharge status. Subjective Subjective: Doing better overall .. Walking and strength is what I need Overall Improvement % Improvement: 50 Objective Objective/Function: POSTURE: mild forward posture hips/knees NEURO: reflexes Achilles /patella 1/3 ,c/o paresthesia/tingling in hand and foot, ataxia RLE GAIT: Ambulates with fww reciprocal pattern mild ataxia ,slow quang mild forward posture MMT: ( peak force) hip flexion 23.7 ,hip abduction 5 right ,hip flexion left 35.7 ,7.8 hip abduction ,quads/hams 4/5 ,ankle 4/5 BALANCE: fair +with fww Goals Goal 1:: I with HEP for strengthening Goal Progress: Progressing Goal 2:: Patient to improve peak force of hips by 10# strength to improve gait and function new goals) Goal Progress: Goal Met Goal 3:: Patient to improve CATSIB by 10 points to improve balance to decrease of falls Goal Progress: Progressing Goal 4:: Patient to improve 30 sec sit-stand by 3-5 reps to improve function (new goal) Goal Progress: Progressing Goal 5:: Patient ambulate with least restrictive device with improved gait pattern in home and community distances Goal Progress: Progressing Goal 6:: Patient to improve LFES score by 5-10 points to improve balance and gait Goal Progress: Progressing Plan Plan: CONT WITH POC PT INTEREVTIONS PROGRESSIVE GAIT TRAINING ,BALANCE TRAINING ,BLE STRENGTHENING (ESPECIALLY RLE) ,AND FUNCTIONAL STRENGTHENING D/C Information d/c sentence: If there are questions or concerns regarding this patient's physical therapy, please feel free to call me at [phone]. Thank you for the referral of thispatient. Sincerely, Onesimo Boyd, PT, Cert MDT, OCS Balance/Gait/Functional tests Balance/Special Test Scores CATSIB Score (Max score 120 seconds): 70 Lower Extremity Functional Score: 21 TUG Test Time Seconds: 25.41 Tug Test: 20-30sec.=variable mobility 30 Second Chair Rise Test Seconds: 13 Improvement % Improvement: 50 <Electronically signed by Onesimo Boyd PT Cert. T, OCS> 11/30/22 1315 CC: Dr. Catia Christian, DO ~ JLA Signed [facility] Work Phone: [phone] 678-281503-28-2023 Procedure [facility] Evaluation noteNo assessment information available[facility] Work Phone: evaluation note* Diagnosis Onset Date Resolution Status Osteoporosis acute Hypothyroidism chronic [facility] Work Phone: evaluation note* Diagnosis Onset Date Resolution Status Stroke acute Benign hypertension [facility] Work Phone: evaluation note* Diagnosis Onset Date Resolution Status Stroke acute Stroke-like symptoms acute Benign hypertension [facility] Work Phone: evaluation note* Diagnosis Onset Date Resolution Status Benign hypertension chronic Stroke resolved Debility acute GERD (gastroesophageal reflux disease) acute Hyperlipidemia acute Hyperparathyroidism acute Hypokalemia acute Hypothyroidism acute 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 Vitamin D deficiency acute Hypertension chronic Stroke resolved [facility] Work Phone: evaluation note* Diagnosis Onset Date Resolution Status Benign hypertension chronic Stroke resolved Debility acute GERD (gastroesophageal reflux disease) acute Hyperlipidemia acute Hypothyroidism acute 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 Vitamin D deficiency acute Hypertension chronic Hyperparathyroidism resolved Hypokalemia resolved Stroke resolved [facility] Work Phone: evaluation note* Diagnosis Onset Date Resolution Status Debility acute GERD (gastroesophageal reflux disease) acute Hyperlipidemia acute Hypothyroidism acute 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 Vitamin D deficiency acute Hypertension chronic Hyperparathyroidism resolved Hypokalemia resolved Stroke resolved [facility] Work Phone: Evaluation note* Diagnosis Onset Date Resolution Status Hypothyroidism acute Osteoporosis acute [facility] Work Phone: Reason for referral (narrative)No reason for [facility] Work [facility]: Chief Complaint and Reason for Visit Chief Complaint IVIG IVIG IVIG IVIG Chief Complaint IVIG IVIG IVIG IVIG LEARNING FACILITATOR, 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, 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 PCP IVIG IVIG PROLIA Reason for Visit Osteoporosis Hypothyroidism Chief Complaint IVIG IVIG LEARNING FACILITATOR, 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, 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 PCP IVIG IVIG PROLIA Reason for Visit Osteoporosis Hypothyroidism Chief Complaint LEARNING FACILITATOR, 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, 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 PCP IVIG IVIG PROLIA IVIG IVIG Reason for Visit Osteoporosis Hypothyroidism Chief Complaint IVIG IVIG PROLIA IVIG IVIG S/O- PAIN COPY PCP Chief Complaint IVIG IVIG PROLIA IVIG IVIG S/O- PAIN COPY PCP IVIG IVIG Chief Complaint PROLIA IVIG IVIG S/O- PAIN COPY PCP IVIG IVIG Chief Complaint IVIG IVIG S/O- PAIN COPY PCP IVIG IVIG SCREENING Chief Complaint IVIG IVIG S/O- PAIN COPY PCP IVIG IVIG SCREENING IVIG Chief Complaint IVIG IVIG S/O- PAIN COPY PCP IVIG IVIG SCREENING IVIG ACUTE CVA Reason for Visit Stroke Benign hypertension Chief Complaint IVIG IVIG S/O- PAIN COPY PCP IVIG IVIG SCREENING IVIG ACUTE CVA ACUTE CVA ACUTE CVA Reason for Visit Stroke Stroke-like symptoms Benign hypertension Chief Complaint S/O- PAIN COPY PCP IVIG IVIG SCREENING IVIG ACUTE CVA ACUTE CVA ACUTE CVA ACUTE CVA PVD RIGHT LEG Reason for Visit Benign hypertension Stroke Debility GERD (gastroesophageal reflux disease) Hyperlipidemia Hyperparathyroidism Hypokalemia Hypothyroidism Stenosis of right internal carotid artery Vitamin D deficiency Hypertension Stroke Chief Complaint IVIG IVIG SCREENING IVIG ACUTE CVA ACUTE CVA ACUTE CVA ACUTE CVA PVD RIGHT LEG 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 Reason for Visit Benign hypertension Stroke Debility GERD (gastroesophageal reflux disease) Hyperlipidemia Hypothyroidism Stenosis of right internal carotid artery Vitamin D deficiency Hypertension Hyperparathyroidism Hypokalemia Stroke Chief Complaint IVIG ACUTE CVA ACUTE CVA ACUTE CVA ACUTE CVA PVD RIGHT LEG 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 IVIG IVIG Reason for Visit Benign hypertension Stroke Debility GERD (gastroesophageal reflux disease) Hyperlipidemia Hypothyroidism Stenosis of right internal carotid artery Vitamin D deficiency Hypertension Hyperparathyroidism Hypokalemia Stroke Chief Complaint ACUTE CVA PVD RIGHT LEG 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 IVIG IVIG SHORTNESS OF BREATH SHORTNESS OF BREATH Reason for Visit Debility GERD (gastroesophageal reflux disease) Hyperlipidemia Hypothyroidism Stenosis of right internal carotid artery Vitamin D deficiency Hypertension Hyperparathyroidism Hypokalemia Stroke Chief Complaint ACUTE CVA 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 IVIG IVIG SHORTNESS OF BREATH SHORTNESS OF BREATH IVIG IVIG Reason for Visit Debility GERD (gastroesophageal reflux disease) Hyperlipidemia Hypothyroidism Stenosis of right internal carotid artery Vitamin D deficiency Hypertension Hyperparathyroidism Hypokalemia Stroke Chief Complaint 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 WOR K IVIG IVIG SHORTNESS OF BREATH SHORTNESS OF BREATH IVIG IVIG 6 M FU R/S FROM 12/08 DUE ON OR AROUND DATE LISTED Reason for Visit Hypothyroidism Osteoporosis Chief Complaint IVIG IVIG SHORTNESS OF BREATH SHORTNESS OF BREATH IVIG IVIG 6 M FU R/S FROM 12/08 DUE ON OR AROUND DATE LISTED IVIG Reason for Visit Hypothyroidism Osteoporosis Chief Complaint SHORTNESS OF BREATH SHORTNESS OF BREATH IVIG IVIG 6 M FU R/S FROM 12/08 DUE ON OR AROUND DATE LISTED IVIG IVIG S/O- PAIN COPY PCP Reason for Visit Hypothyroidism Osteoporosis Chief Complaint IVIG IVIG 6 M FU R/S FROM 12/08 DUE ON OR AROUND DATE LISTED IVIG IVIG S/O- PAIN COPY PCP BALANCE RX HERE IVIG Reason for Visit Hypothyroidism Osteoporosis Chief Complaint IVIG IVIG 6 M FU R/S FROM 12/08 DUE ON OR AROUND DATE LISTED IVIG IVIG S/O- PAIN COPY PCP BALANCE RX HERE IVIG IVIG Reason for Visit Hypothyroidism Osteoporosis Chief Complaint IVIG IVIG S/O- PAIN COPY PCP IVIG IVIG IVIG BALANCE; S/P CVA; RX HERE IVIG Chief Complaint S/O- PAIN COPY PCP IVIG IVIG IVIG IVIG IVIG LABS BALANCE; S/P CVA; RX HERE Chief Complaint IVIG IVIG IVIG LABS BALANCE; S/P CVA; RX HERE IVIG Chief Complaint IVIG IVIG IVIG LABS BALANCE; S/P CVA; RX HERE IVIG IVIG Chief Complaint IVIG IVIG LABS IVIG IVIG BALANCE; S/P CVA; RX HERE Chief Complaint LABS IVIG IVIG BALANCE; S/P CVA; RX HERE IVIG IVIG IVIG Chief Complaint IVIG IVIG BALANCE; S/P CVA; RX HERE IVIG IVIG IVIG FALL Chief Complaint IVIG IVIG BALANCE; S/P CVA; RX HERE IVIG IVIG IVIG FALL IVIG Chief Complaint IVIG IVIG BALANCE; S/P CVA; RX HERE IVIG IVIG IVIG FALL IVIG IVIG Chief Complaint IVIG IVIG IVIG FALL IVIG IVIG STANDING ORDER Chief Complaint Admit Date S/O- PAIN- COPY PCP January 22, 2024 8:59am IVIG February 13, 2024 8: 09am IVIG February 15, 2024 8 :11am IVIG April 09, 2024 8:09 am PROLIA April 11, 2024 8:04 am Chief Complaint Admit Date S/O- PAIN- COPY PCP January 22, 2024 8:59am IVIG February 13, 2024 8: 09am IVIG February 15, 2024 8 :11am IVIG April 09, 2024 8:09 am PROLIA April 11, 2024 8:04 am S/O- 2 ORDERS- 2 DRS April 22, 2024 9: 03am Chief Complaint Admit Date IVIG April 09, 2024 8:09 am PROLIA April 11, 2024 8:04 am S/O- 2 ORDERS- 2 DRS April 22, 2024 9: 03am IVIG June 02, 2024 8:1 1am IVIG June 04, 2024 8:0 7am STANDING ORDER June 12, 2024 10:03a m Chief Complaint Admit Date IVIG April 09, 2024 8:09 am PROLIA April 11, 2024 8:04 am S/O- 2 ORDERS- 2 DRS April 22, 2024 9: 03am IVIG June 02, 2024 8:1 1am IVIG June 04, 2024 8:0 7am STANDING ORDER June 12, 2024 10:03a m IVIG July 30, 2024 7:57 am Advance Directives No Advanced Directives Records Found Advance Directive Response Recorded Date/ Time Advance Directives Yes March 10, 2016 8:56am Living Will No March 12 12:22pm Power of Peanut Vendor No March 12, 2019 12:22pm Advance Directive Response Recorded Date/ Time Advance Directives Yes March 10, 2016 7:56am Living Will No March 12 11:22am Power of Peanut Vendor No March 12, 2019 11:22am Advance Directive Response Recorded Date/ Time Advance Directives Yes March 10, 2016 7:56am Living Will Yes January 02, 2:59am Power of Peanut Vendor No January 02, 2022 2:59am Advance Directive Response Recorded Date/ Time Advance Directives Yes March 10, 2016 7:56am Living Will Yes January 02, 022 5:08am Power of Peanut Vendor No January 02, 2022 5:08am Advance Directive Response Recorded Date/ Time Name of Medical Power of Peanut Vendor frederic De Guzman January 05, 2022 11:44am Advance Directives Yes March 10, 2016 7:56am Living Will Yes January 05 11:44am Power of Peanut Vendor Yes January 05, 2022 11:44am Advance Directive Response Recorded Date/ Time Name of Medical Power of Peanut Vendor frederic De Guzman January 05, 2022 12:44pm Advance Directives Yes March 10, 2016 8:56am Living Will Yes January 05 12:44pm Power of Peanut Vendor Yes January 05, 2022 12:44pm Advance Directive Response Recorded Date/ Time Advance Directives Yes March 10, 2016 8:56am Living Will Yes January 05 12:44pm Power of Peanut Vendor Yes January 05, 2022 12:44pm Advance Directive Response Recorded Date/ Time Advance Directives Yes March 10, 2016 7:56am Living Will Yes January 05 11:44am Power of Peanut Vendor Yes January 05, 2022 11:44am Advance Directive Response Recorded Date/ Time Name of Medical Power of Peanut Vendor IBRAHIMA DOUGLAS April 06, 2023 4:14pm Advance Directives Yes March 10, 2016 7:56am Living Will Yes April 06, 2023 4:14pm Power of Peanut Vendor Yes April 05 4:14pm Advance Directive Response Recorded Date/ Time Name of Medical Power of Peanut Vendor IBRAHIMA DOUGLAS April 06, 2023 5:14pm Advance Directives Yes March 10, 2016 8:56am Living Will Yes April 06, 2023 5:14pm Power of Peanut Vendor Yes April 05 5:14pm Advance Directive Response Recorded Date/ Time Living Will Yes April 06, 2023 4:14pm Power of Peanut Vendor Yes April 05 4:14pm Advance Directives Yes March 10, 2016 7:56am Advance Directive Response Recorded Date/ Time Living Will Yes April 06, 2023 5:14pm Do you have a Healthcare Power of Peanut Vendor? Yes April 06, 2023 5:14pm Advance Directives Yes March 10, 2016 8:56am Family History No Family History Records Found Relationship Condition Age at Onset Recorded Date/T yared Not Specified Osteoporosis Unknown Hypertension Unknown Disorder of thyroid Unknown Cerebrovascular accident (CVA) Unknown Summary Purpose Additional Source Comments Goals (unrecognized section and content) Goals may be documented in a n alternate sectionGoals may be documented in an alternate sectionGoals may be documented in an alternate sectionGoals may be documented in an alternate sectionGoals may be documented in an alternate sectionGoals may be documented in an alternate sectionGoals may be documented in an alternate sectionGoals may be documented in an alternate sectionGoals may be documented in an alternate sectionGoals may be documented in an alternate sectionGoals may be documented in an alternate sectionGoals may be documented in an alternate sectionGoals may be documented in an alternate sectionGoals may be documented in an alternate sectionGoals may be documented in an alternate sectionGoals may be documented in an alternate sectionGoals may be documented in an alternate sectionGoals may be documented in an alternate sectionGoals may be documented in an alternate sectionGoals may be documented in an alternate sectionGoals may be documented in an alternate sectionGoals may be documented in an alternate sectionGoals may be documented in an alternate sectionGoals may be documented in an alternate sectionGoals may be documented in an alternate sectionGoals may be documented in an alternate sectionGoals may be documented in an alternate sectionGoals may be documented in an alternate sectionGoals may be documented in an alternate sectionGoals may be documented in an alternate sectionGoals may be documented in an alternate sectionGoals may be documented in an alternate section INFORMATION SOURCE (unrecogn ized section and content) DATE CREATED AUTHOR 02/18/2022 [facility] DATE CREATED AUTHOR AUTHOR'S ORGANIZ ATION 07/31/2024 [facility] Care Teams (unrecognized sec tion and content) Team Status: Active Member Role Status Dates Dr. Catia Christina , DO Family Provider Active Dr. Catia Christian , DO Primary Care Provider Active Team Status: Active Member Role Status Dates Dr. Catia Christian , DO Primary Care Provider Active Dr. Roderick Trinh , DO Emergency Provider Active Dr. Jeronimo Mooney MD Admit Provider, Attending Provider, Other Provider Active Team Status: Active Member Role Status Dates Dr. Catia Christian , DO Primary Care Provider Active Dr. David Nichols MD Attending Provider Active Team Status: Active Member Role Status Dates Dr. Catia Christian DO Primary Care Provider Active Dr. Roderick Trinh , DO Emergency Provider Active Dr. Jeronimo Mooney MD Admit Provider, Other Provide r Active Dr. Fer Schneider , DO Attending Provider, Other Pro vider Active Team Status: Inactive Member Role Status Dates Dr. Catia Christian DO Primary Care Provider Active Dr. Natalie Rodriguez MD Attending Provider, Referring Provider Active Team Status: Inactive Member Role Status Dates Dr. Catia Christian DO Primary Care Provider, Attending P rovider Active Team Status: Inactive Member Role Status Dates Dr. Catia Christian DO Primary Care Provider Active Dr. Roderick Trinh , DO Emergency Provider Active Dr. Jeronimo Mooney MD Admit Provider, Other Provide r Active Dr. Fer Schneider , DO Attending Provider Active Team Status: Inactive Member Role Status Dates Dr. Catia Christian DO Primary Care Provider Active Dr. Clif Babb MD Admit Provider, Attending Provid er Active Team Status: Inactive Member Role Status Dates Dr. Catia Christian DO Primary Care Provider Active Dr. Clif Babb MD Attending Provider Active Team Status: Inactive Member Role Status Dates Dr. Catia Christian DO Primary Care Provider Active Brennan Dillard MD Attending Provider, Referring Provid er Active Team Status: Active Member Role Status Dates Dr. Catia Christian DO Primary Care Provider Active Dr. Natalie Rodriguez MD Attending Provider, Referring Provider Active Team Status: Inactive Member Role Status Dates Dr. Catia Christian DO Primary Care Provider Active Brennan HANSON MD Attending Provider, Referring Pro vider Active Team Status: Inactive Member Role Status Dates Dr. Catia Christian DO Primary Care Provider Active Dr. Clif Babb MD Attending Provider, Referring Pr ovider Active Team Status: Active Member Role Status Dates Dr. Catia Christian DO Primary Care Provider Active Dr. Clif Babb MD Other Provider Active Dr. Juan A Chandler MD Attending Provider Active Team Status: Inactive Member Role Status Dates Dr. Catia Christian DO Primary Care Provider, Referring P rovider Active Dr. Magdy Mane MD Attending Provider Active Team Status: Active Member Role Status Dates Dr. Catia Christian DO Primary Care Provider Active Dr. Clif Babb MD Referring Provider, Other Provid er Active Dr. Juan A Chandler MD Attending Provider Active Team Status: Active Member Role Status Dates Dr. Catia Christian DO Primary Care Provide r, Attending Provider, Referring Provider Active Team Status: Inactive Member Role Status Dates Dr. Catia Christian DO Primary Care Provider Active Dr. Magdy Mane MD Attending Provider, Referring Provi lesly Active Team Status: Inactive Member Role Status Dates Dr. Catia Christian DO Primary Care Provide r, Attending Provider, Referring Provider Active Team Status: Inactive Member Role Status Dates Dr. Catia Christian DO Primary Care Provider Active Dr. Ezio Lewis DO Emergency Provider Active Team Status: Inactive Member Role Status Dates Dr. Catia Christian DO Primary Care Provider Active Dr. Eizo Lewis DO Attending Provider, Emergency Provider Active Team Status: Active Member Role Status Dates Dr. Catia Christian DO Primary Care Provider Active Team Status: Inactive Member Role Status Dates Dr. Catia Christian DO Primary Care Provider Active Start: January 22, 2024 End: January 22, 2024 Dr. Natalie Rodriguez MD Attending Provider Active Start: January 22, 2024 End: January 22, 2024 Dr. Natalie Rodriguez MD Referring Provider Active Start: January 22, 2024 End: January 22, 2024 Team Status: Inactive Member Role Status Dates Dr. Catia Christian DO Primary Care Provider Active Start: February 13, 2024 End: February 13, 2024 Dr. Natalie Rodriguez MD Attending Provider Active Start: February 13, 2024 End: February 13, 2024 Dr. Natalie Rodriguez MD Referring Provider Active Start: February 13, 2024 End: February 13, 2024 Team Status: Inactive Member Role Status Dates Dr. Catia Christian DO Primary Care Provider Active Start: February 15, 2024 End: February 15, 2024 Dr. Natalie Rodriguez MD Attending Provider Active Start: February 15, 2024 End: February 15, 2024 Dr. Natalie Rodriguez MD Referring Provider Active Start: February 15, 2024 End: February 15, 2024 Team Status: Inactive Member Role Status Dates Dr. Catia Christian DO Primary Care Provider Active Start: April 09, 2024 End: April 09, 2024 Dr. Natalie Rodriguez MD Attending Provider Active Start: April 09, 2024 End: April 09, 2024 Dr. Natalie Rodriguez MD Referring Provider Active Start: April 09, 2024 End: April 09, 2024 Team Status: Inactive Member Role Status Dates Dr. Catia Christian DO Primary Care Provider Active Start: April 11, 2024 End: April 11, 2024 Dr. Catia Christian DO Attending Provider Active St art: April 11, 2024 End: April 11, 2024 Dr. Catia Christian DO Referring Provider Active St art: April 11, 2024 End: April 11, 2024 Team Status: Inactive Member Role Status Dates Dr. Catia Christian DO Primary Care Provider Active Start: April 22, 2024 End: April 22, 2024 Dr. Catia Christian DO Attending Provider Active St art: April 22, 2024 End: April 22, 2024 Dr. Catia Christian DO Referring Provider Active St art: April 22, 2024 End: April 22, 2024 Dr. Natalie Rodriguez MD Other Provider Active St art: April 22, 2024 End: April 22, 2024 Team Status: Inactive Member Role Status Dates Dr. Catia Christian DO Primary Care Provider Active Start: June 02, 2024 End: June 02, 2024 Dr. Natalie Rodriguez MD Attending Provider Active Start: June 02, 2024 End: June 02, 2024 Dr. Natalie Rodriguez MD Referring Provider Active Start: June 02, 2024 End: June 02, 2024 Team Status: Inactive Member Role Status Dates Dr. Catia Christian DO Primary Care Provider Active Start: June 04, 2024 End: June 04, 2024 Dr. Natalie Rodriguez MD Attending Provider Active Start: June 04, 2024 End: June 04, 2024 Dr. Natalie Rodriguez MD Referring Provider Active Start: June 04, 2024 End: June 04, 2024 Team Status: Inactive Member Role Status Dates Dr. Catia Christian DO Primary Care Provider Active Start: June 12, 2024 End: June 12, 2024 Dr. Natalie Rodriguez MD Attending Provider Active Start: June 12, 2024 End: June 12, 2024 Dr. Natalie Rodriguez MD Referring Provider Active Start: June 12, 2024 End: June 12, 2024 Team Status: Inactive Member Role Status Dates Dr. Catia Christian DO Primary Care Provider Active Start: July 30, 2024 End: July 30, 2024 Dr. Natalie Rodriguez MD Attending Provider Active Start: July 30, 2024 End: July 30, 2024 Dr. Natalie Rodriguez MD Referring Provider Active Start: July 30, 2024 End: July 30, 2024 FOR RECORDS PERTAINING TO PATIENTS WHO ARE [...] BE BASED ON THE PRIMARY CLINICAL RECORDS. [employer] [facility]. provides no warranty or guarantee of the accuracy or completeness of information in this document.
== END 2024-08-01 23:59 | disposition home or self-care (01) ==
LOC: MEDOUTP 08:00
PROVIDERS: PCP Family Medicine; Referring Provider Internal Medicine Rheumatology; Visit Provider Internal Medicine Rheumatology
DX: M33.92 Dermatopolymyositis, unspecified with myopathy (principal)
CPT/HCPCS: 96365; 96366; A4216; J1568

== ENCOUNTER → 2024-09-08 | Outpatient (CLI) | payer MEDICARE, SELFPAY ==
[2024-09-08 13:22] LABS: Hematocrit 44.6 % (37-47); Hemoglobin 14.9 g/dL (12.0-15.0); Immature Granulocytes Count 0.050 X10^3/uL (0.0-0.0); Mean Corp Hgb Conc 33.4 g/dL (32-36); Mean Corpuscular Volume 92.9 fL (81-99); Mean Platelet Vol. 10.8 fl (6.2-12.0); NRBC Flagged by Analyzer 0 % (0-5); Platelet Count 260 K/mm3 (150-450); RBC Distribution Width CV 13.7 % (11.6-14.6); RBC Distribution Width SD 46.5 fl (35.1-43.9); Red Blood Count 4.80 M/mm3 (4.2-5.4); White Blood Count 7.6 K/mm3 (4.4-11.0)
[2024-09-08 13:36] LABS: AST(SGOT) 21 U/L (<=31); Alanine Aminotransfer ALT/SGPT 23 U/L (<=34); Albumin, Serum 4.3 g/dL (3.4-4.8); Alkaline Phosphatase 86 U/L (35-104); Anion Gap 14 (5-15); BUN 9 mg/dL (4-19); BUN/Creat Ratio 14.3 RATIO (10-20); CPK Total, Creatine Kinase 34 U/L (24-195); Calcium,Total 10.3 mg/dL (7.6-11.0); Carbon Dioxide 23.7 mmol/L (21.0-32.0); Chloride 102 mmol/L (98-108); Free T3 3.4 pg/mL (2.18-3.98); Globulin 3.4 g/dL (2.2-4.2); Glucose 149 mg/dL (70-99); Potassium 3.8 mmol/L (3.3-5.1)
== END | disposition home or self-care (01) ==
LOC: MTLAB 10:50
PROVIDERS: PCP Family Medicine; Referring Provider Family Medicine; Visit Provider Family Medicine
DX: M33.92 Dermatopolymyositis, unspecified with myopathy (principal); M15.9 Polyosteoarthritis, unspecified; Z79.899 Other long term (current) drug therapy; E03.9 Hypothyroidism, unspecified
CPT/HCPCS: 36415; 80053; 82085; 82550; 84439; 84443; 84481; 85025

== ENCOUNTER 2024-09-24 08:02 | Outpatient (CLI) | payer MEDICARE, SELFPAY ==
[2024-09-24 08:09] VITALS: BP 159/72; PULSE 71; RESP 18; TEMP 36.7; O2SAT 96
[2024-09-24] MEDS: 0.9% NaCl Peripheral Flush Adult IV (08:13)
[2024-09-24] MEDS: Immune Globulin 20 gm 20 GM/200 ML VIAL IV (08:30)
[2024-09-24] MEDS: Immune Globulin 10 gm 10 GM/100 ML VIAL IV (10:24)
[2024-09-24] MEDS: Immune Globulin 5 GM 5 GM/50 ML VIAL IV (11:02)
[2024-09-24 11:05] VITALS: BP 146/72; PULSE 57; RESP 16; TEMP 36.3
== END 2024-09-24 23:59 | disposition home or self-care (01) ==
LOC: MEDOUTP 08:03
PROVIDERS: PCP Family Medicine; Referring Provider Internal Medicine Rheumatology; Visit Provider Internal Medicine Rheumatology
DX: M33.92 Dermatopolymyositis, unspecified with myopathy (principal)
CPT/HCPCS: 96365; 96366; A4216; J1568

== ENCOUNTER 2024-09-26 07:54 | Outpatient (CLI) | payer MEDICARE, SELFPAY ==
[2024-09-26 08:10] VITALS: BP 162/75; PULSE 66; RESP 16; TEMP 36.2; O2SAT 95; BMI 26.7
[2024-09-26] MEDS: Immune Globulin 20 gm 20 GM/200 ML VIAL IV (08:13)
[2024-09-26] MEDS: 0.9% NaCl Peripheral Flush Adult IV (08:17)
[2024-09-26] MEDS: Immune Globulin 10 gm 10 GM/100 ML VIAL IV (10:06)
[2024-09-26] MEDS: Immune Globulin 5 GM 5 GM/50 ML VIAL IV (10:43)
== END 2024-09-26 23:59 | disposition home or self-care (01) ==
LOC: MEDOUTP 07:54
PROVIDERS: PCP Family Medicine; Referring Provider Internal Medicine Rheumatology; Visit Provider Internal Medicine Rheumatology
DX: M33.92 Dermatopolymyositis, unspecified with myopathy (principal)
CPT/HCPCS: 96365; 96366; A4216; J1568

== ENCOUNTER 2024-11-19 07:59 | Outpatient (CLI) | payer MEDICARE, SELFPAY ==
[2024-11-19] MEDS: DENOSUMAB 60 MG/ML SC (08:34)
[2024-11-19 08:40] VITALS: BMI 26.5
[2024-11-19] MEDS: Immune Globulin 20 gm 20 GM/200 ML VIAL IV (08:42)
[2024-11-19] MEDS: Immune Globulin 10 gm 10 GM/100 ML VIAL IV (10:42)
[2024-11-19] MEDS: Immune Globulin 5 GM 5 GM/50 ML VIAL IV (11:14)
== END 2024-11-19 23:59 | disposition home or self-care (01) ==
LOC: MEDOUTP 08:02
PROVIDERS: PCP Family Medicine; Referring Provider Internal Medicine Rheumatology; Visit Provider Internal Medicine Rheumatology
DX: M33.92 Dermatopolymyositis, unspecified with myopathy (principal); M81.0 Age-related osteoporosis without current pathological fracture
CPT/HCPCS: 96365; 96366; 96372; A4216; J0897; J1568

== ENCOUNTER 2024-11-21 07:56 | Outpatient (CLI) | payer MEDICARE, SELFPAY ==
[2024-11-21] MEDS: Immune Globulin 20 gm 20 GM/200 ML VIAL IV (08:16)
[2024-11-21 08:18] VITALS: BP 140/75; PULSE 65; RESP 14; TEMP 35.9; O2SAT 95; BMI 27.2
--- OUTSIDE RECORDS SUMMARY | 2024-11-21 08:19 | XMS RPT_ITS | CCD ---
Author Organization [facility] Care Team Providers Care Touch Up Worker Name Role Phone Dilma Loo Unavailable Unavailable Chepe IQBAL, Blake Tom Unavailable Job RN RN, Bel Jones Unavailable Unavailabl e Dr. Catia Christian Primary Care Provider Dr. Catia Christian Referring Provider [phone] Dr. Magdy Mane Attending Provider Dr. [...] Attending Provider Dr. Fer Schneider Other Provider 1([facility])[phone] Malys, Dr. Bardales Primary Care Provider 1([facility])[phone] aMgdalena, Dr. Hernandez Attending Provider 1([facility])[phone] Skinny, Dr. Clif Womack Other Provider Dr. Juan A Chandler Attending Provider 1([facility])[phone] Skinny, Dr. Clif Womack Referring Provider 1([facility])[phone] Malys, Dr. Bardales Referring Provider 1([facility])[phone] Alhaji, Dr. Curran Attending Provider 1([facility])[phone] Malys, Dr. Bardales Primary Care Provider 1([facility])[phone] Malys DO, Dr. Bardales Primary Care Provider 1([facility])[phone] Jennifer IQBAL, Dr. Estrada Attending Provider Jennifer IQBAL, Dr. Estrada Referring Provider Malys DO, Dr. Bardales Attending Provider 1([facility])[phone] Malys DO, Dr. Bardales Referring Provider 1([facility])[phone] Malys DO, Dr. Bardales Primary Care Provider 1([facility])[phone] Jennifer IQBAL, Dr. Estrada Attending Provider Jennifer IQBAL, Dr. Estrada Referring Provider Malephraim DO, Dr. Bardales Attending Provider 1([facility])[phone] Gino DO, Dr. Bardales Referring Provider 1([facility])[phone] Jennifer IQBAL, Dr. Estrada Other Provider 1([facility])[phone] Gino DO, Dr. Bardales Primary Care Provider 1([facility])[phone] Jennifer IQBAL, Dr. Estrada Attending Provider Jennifer IQBAL, Dr. Estrada Referring Provider Gino HOLDEN, Dr. Bardales Primary Care Provider 1([facility])[phone] Jennifer IQBAL, Dr. Estrada Attending Provider Jennifer IQBAL, Dr. Estrada Referring Provider Malys DO, Dr. Bardales Attending Provider 1([facility])[phone] Malys DO, Dr. Bardales Referring Provider 1([facility])[phone] Dr. Natalie Rodriguez MD Other Provider [phone] Vellanki, Natalie Referring Unavailable Vellanki, Natalie Attending Unavailable Malys, Catia Primary Care Unavailable Vellanki, Natalie Referring Unavailable Vellanki, Natalie Attending Unavailable Malys, Catia Primary Care Unavailable Vellanki, Natalie Referring Unavailable Vellanki, Natalie Attending Unavailable Malys, Catia Primary Care Unavailable Malys, Catia Referring Unavailable Malys, Catia Attending Unavailable Malys, Catia Primary Care Unavailable Malys, Catia Referring Unavailable Malys, Catia Attending Unavailable Malys, Catia Primary Care Unavailable Vellanki, Natalie Attending Unavailable Malys, Catia Primary Care Unavailable Vellanki, Natalie Referring Unavailable Vellanki, Natalie Attending Unavailable Vellanki, Natalie Referring Unavailable Malys, Catia Primary Care Unavailable Malys, Catia Primary Care Unavailable Malys, Catia Referring Unavailable Malys, Catia Attending Unavailable Vellanki, Natalie Consulting Unavailable Vellanki, Natalie Referring Unavailable Malys, Catia Primary Care Unavailable Vellanki, Natalie Attending Unavailable Vellanki, Natalie Attending Unavailable Vellanki, Natalie Referring Unavailable Malys, Catia Primary Care Unavailable Vellanki, Natalie Attending Unavailable Malys, Catia Primary Care Unavailable Vellanki, Natalie Referring Unavailable Vellanki, Natalie Attending Unavailable Vellanki, Natalie Referring Unavailable Malys, Catia Primary Care Unavailable Vellanki, Natalie Attending Unavailable Vellanki, Natalie Referring Unavailable Malys, Catia Primary Care Unavailable Vellanki, Natalie Referring Unavailable Vellanki, Natalie Attending Unavailable Malys, Catia Primary Care Unavailable Vellanki, Natalie Referring Unavailable Vellanki, Natalie Attending Unavailable Malys, Catia Primary Care Unavailable Malys, Catia Referring Unavailable Malys, Catia Attending Unavailable Vellanki, Natalie Consulting Unavailable Malys, Catia Primary Care Unavailable Vellanki, Natalie Referring Unavailable Vellanki, Natalie Attending Unavailable Malys, Catia Primary Care Unavailable Vellanki, Natalie Attending Unavailable Malys, Catia Primary Care Unavailable Vellanki, Natalie Referring Unavailable Vellanki, Natalie Referring Unavailable Vellanki, Natalie Attending Unavailable Malys, Catia Primary Care Unavailable Allergies Allergy Classification Reported Allergen(s) Allergy Type Date of Onset Reaction(s) Facility (20 sources) abaloparatide Drug Allergy 06-07-2021 vomitting [facility] (1 source) abaloparatide Drug allergy (disorder) 11-19-2024 [facility] Repository Medications Current Medications Medication Drug Class(es) [...] as needed for Pain Score 1-10 0 0 January 03, 2022 1:00am June 27, 2023 8:28am acetaminophen 300 mg / codeine phosphate 30 mg oral tablet (12 sources) Opioid Agonist Start: 04-06-2023 take 1 tablet by mouth every eight hours as needed for pain Acetaminophen-Codeine 300-30 mg tablet Active 1 {tbl} PO Q8H as needed for pain 12 3 0 April 06, 2023 1:00am Fracture of rib of left side Fracture of one rib, left side, initial encounter for closed fracture Start: 04-06-2023 take 1 tablet by brandy th every eight hours Acetaminophen-Codeine Active 1 TABLET PO Q8H 12 3 April 06, 2023 1:00am amLODIPine 10 mg oral tablet (20 sources) Dihydropyridine Calcium Channel Angeline Start: 01-25-2022 take 1 tablet by mouth once daily Amlodipine 10 mg Tablet Active 10 mg PO DAILY 0 0 January 25, 2022 1:00am Start: 06-07-2021 [...] One tablet by mouth daily AMLODIPINE BESYLATE [id number] Catia Karen Christian, DO aspirin 81 mg chewable tablet (20 sources) Platelet Aggregation Inhibitor, Nonsteroidal Anti-inflammatory Drug Start: 01-03-2022 End: 01-03-2022 take 1 tablet by mouth once daily Aspirin 81 mg tablet,chewable Active 81 mg PO DAILY January 03, 2022 7:19pm Heart Start: 01-03-2022 End: 01-03-2022 take 81 mg by mouth twice daily Aspirin Active 81 MG P O TWICE A DAY January 03, 2022 7:19pm atorvastatin 40 mg oral tablet (20 sources) HMG-CoA Reductase Inhibitor Start: 01-03-2022 End: 01-03-2022 take 1 tablet by mouth once daily Atorvastatin (Lipitor) 40 mg tablet Active 40 mg PO DAILY January 03, 2022 7:19pm Cholesterol bevacizumab (20 sources) Vascular Endothelial Growth Factor [...] 2017 11:00pm cholecalciferol 1.25 mg oral capsule (20 sources) Vitamin D Start: 05-25-2022 take 1 capsule by mouth every week Cholecalciferol (Vitamin D3) 1,250 mcg (50,000 unit) capsule Active 1250 ug PO EVERY WEEK May 25, 2022 12:00am 1 ml denosumab 60 mg/ml prefilled syringe (20 sources) RANK Ligand Inhibitor Start: 05-25-2022 Denosumab (Prolia) 60 mg/mL syringe Active 60 mg SC every 6 months 02 05May 25, 2022 9:32am Start: 06-17-2021 Denosumab (Pro rosalia) 60 mg/mL syringe Active 60 MG SC every 6 months June 16, 2021 11:00pm PROLIA 60 MG/ML SOLN yearly DENOSUMAB [id number] Bel Kaiser RN RN PROLIA 60 MG/ML SOLN yearly DENOSUMAB [id number] Bel Kaiser RN RN docusate sodium 50 mg / sennosides, group home 8.6 mg oral tablet (2 sources) Start: 01-25-2022 take 1 tablet by mouth twice daily Sennosides-Docusate Sodium (Stool Softener-Stimulant Laxat) 8.6-50 mg Tablet Active 1 TABLET PO TWICE A DAY January 25, 2022 12:00am ergocalciferol 1.25 mg oral capsule (20 sources) Provitamin D2 Compound Start: 06-28-2017 Ergocalciferol (Vitamin D2) (Vitamin D2) 50,000 UNIT capsule Active 86281 U PO SA June 28, 2017 12:00am Supplement EVERY OTHER WEEK ON SUNDAY Start: 06-28-2017 take 1 capsule by mouth once E rgocalciferol (Vitamin D2) (Vitamin D) 50,000 UNIT capsule Active 59933 UNIT PO June 27, 2017 11:00pm Start: 01-07-2014 VITAMIN D (ERG OCALCIFEROL) 71551 UNIT CAPS 1 tablet every 2 weeks ERGOCALCIFEROL [id number] Catia Ferrera Start: 01-07-2014 VITAMIN D (ERG OCALCIFEROL) 97005 UNIT CAPS 1 tablet every 2 weeks ERGOCALCIFEROL [id number] Catia Ferrera Start: 11-04-2012 End: 12-10-2012 Ergocalciferol (Vitamin D2) (Vitamin D) 50,000 UNIT capsule Discontinued 42055 U PO Q7D November 04, 2012 12:00am [...] the morning after taking methotrexate LEUCOVORIN CALCIUM [id number] Catia Ferrera take 1 tablet by brandy th once daily LEUCOVORIN CALCIUM 15 MG TABS One tablet by mouth daily LEUCOVORIN CALCIUM [id number] Bel Kaiser RN RN lutein 20 mg [...] PO EVERY WEEK January 02, 2022 1:00am Check with primary doctor Pt takes on Start: 01-02-2022 take 15 mg by mouth every week Methotrexate Sodium Active 15 MG PO EVERY WEEK January 02, 2022 1:00am Pt takes on Start: 01-07-2014 METHOTREXATE 2 .5 MG TABS 8 tabs once a week METHOTREXATE SODIUM [id number] Catia Ferrera Start: 04-10-2013 take 20 mg [...] One tablet by mouth daily METOPROLOL TARTRATE 59421230689 Catia Christian DO omeprazole 10 mg delayed [...] TBEC One tablet by mouth daily OMEPRAZOLE [id number] Catia Ferrera Start: 11-04-2012 Omeprazole (Pr ilosec) 40 MG capsule Active 20 MG PO DAILY November 04, 2012 5:26pm pantoprazole 20 mg delayed release oral tablet (20 sources) Proton Pump Inhibitor Start: 01-03-2022 End: 01-03-2022 take 1 tablet by mouth once daily Pantoprazole 20 mg tablet,delayed release (DR/EC) Active 20 mg PO DAILY January 03, 2022 7:19pm GERD polyethylene glycol 3350 69095 mg powder for oral solution (2 sources) [...] TABS One tablet by mouth daily PREDNISONE [id number] Catia Ferrera Start: 01-07-2014 take 1 tablet by brandy th once daily PREDNISONE 5 MG TABS One tablet by mouth daily PREDNISONE [id number] Catia Ferrera Start: 01-08-2013 End: 06-27-2023 take 2.5 mg by mouth once daily Prednisone 10 MG table t Discontinued 2.5 mg PO DAILY January 08, 2013 1:00am June 27, 2023 8:30am Check with primary doctor Start: 01-08-2013 take 2.5 mg by mouth [...] bedtime as needed for pain HYDROCODONE-ACETAMI NOPHEN [id number] Catia Christian DO Start: 06-01-2014 End: 08-03-2016 take 1 tablet by mouth at bedtime as needed for pain NORCO 5-325 MG TABS One tablet by mouth before bedtime as needed for pain HYDROCODONE-ACETAMINOPHEN [id number] Bel Kaiser RN RN Start: 06-01-2014 End: 08-03-2016 take 1 tablet by mouth at bedtime as needed for pain NORCO 5-325 MG TABS One tablet by mouth before bedtime as needed for pain HYDROCODONE-ACETAMINOPHEN [id number] Bel Kaiser RN RN alendronic acid 70 mg oral tablet (6 sources) Bisphosphonate Start: 01-07-2014 End: 08-03-2016 FOSAMAX 70 MG TABS 1 tablet every sunday ALENDRONATE SODIUM 05474747348 Bel Kaiser RN RN MULTIPLE VITAMINS-MINERALS (2 sources) Vitamin C Start: 01-07-2014 take 1 tablet by mouth once daily PRESERVISION/LUTEIN CAPS One tablet by mouth daily MULTIPLE VITAMINS-MINERALS [id number] Catia B Harn Start: 01-07-2014 End: 08-03-2016 take 1 tablet by mouth once daily PRESERVISION/LUTEIN CAPS One tablet by mouth daily MULTIPLE VITAMINS-MINERALS [id number] Bel Kaiser RN RN AZILSARTAN-CHLORTHALIDONE TABS (6 sources) Thiazide-like Diuretic, Angiotensin 2 Receptor Angeline Start: 01-07-2014 End: 03-05-2014 take 1 tablet by mouth once daily EDARBYCLOR TABS One tablet by mouth daily AZILSARTAN-CHLORTHALIDONE TABS [id number] Catia Christian DO Start: 01-07-2014 take 1 tablet by brandy th once daily EDARBYCLOR TABS One tablet by mouth alexandria y AZILSARTAN-CHLORTHALIDONE TABS [id number] Catia Ferrera calcitriol 0.38215 mg oral capsule (20 sources) Vitamin D3 Analog Start: 01-03-2022 End: 01-03-2022 take 2 ug by mouth once daily Calcitriol 0.25 mcg Capsule Discontinued 2 ug PO DAILY 0 0 January 03, 2022 1:00am January 03, [...] Discontinued 0.25 ug PO TWICE A DAY 60 June 07, 2021 2:58pm June 17, 2021 [...] One tablet by mouth twice daily CALCITRIOL [id number] Bel Kaiser RN RN CALCIUM CITRATE-VITAMIN D TABS (2 sources) Start: 01-07-2014 take 1 tablet by mouth once daily CITRACAL/VITAMIN D TABS One tablet by mouth daily CALCIUM CITRATE-VITAMIN D TABS 20686333571 Catia Ferrera CALCIUM CITRATE-VITAMIN D TABS (1 source) Start: 01-07-2014 take 1 tablet by mouth once daily CITRACAL/VITAMIN D TABS One tablet by mouth daily CALCIUM CITRATE-VITAMIN D TABS 96793286250 Catia Ferrera captopril 25 mg oral tablet (20 sources) [...] 03, 2022 7:19pm January 25, 2022 9:13pm Blood Thinner Corticotropin (20 sources) Adrenocorticotropic Hormone Start: 12-09-2012 [...] 01-08-2013 Acthar Discontinued 40 SC No [id number] 1:00am January 08, 2013 8:57am ezetimibe 10 mg oral tablet (6 sources) Dietary Cholesterol Absorption Inhibitor Start: 01-07-2014 End: 03-05-2014 take 1 tablet by mouth once daily ZETIA 10 MG TABS One tablet by mouth daily EZETIMIBE [id number] Catia Christian DO folic acid 1 mg oral tablet (20 [...] Start: 01-07-2014 take 2 tablets by mo uth once daily FOLIC ACID 1 MG TABS Two tablets by mouth daily. FOLIC ACID [id number] Catia Ferrera Start: 11-04-2012 End: 12-10-2012 take [...] 80-12.5 MG TABS 1 PO daily VALSARTAN-HYDROCHLOROTHIAZIDE [id number] Catia Christian DO INTRAVENOUS IMMUNOGLOBULIN (IVIG) 120MG (3 sources) INTRAVENOUS IMMU NOGLOBULIN (IVIG) 120MG IV infusion twice monthly INTRAVENOUS IMMUNOGLOBULIN (IVIG) 120MG Bel Kaiser RN RN levothyroxine sodium 0.1 mg oral tablet (20 sources) l-Thyroxine Start: 08-09-2022 End: 06-12-2023 take 1 tablet by mouth once daily Levothyroxine 100 mcg tablet Discontinued 100 ug PO DAILY 90 2 August 09, 2022 1:05pm June 12, 2023 11:36am Hypothyroidism Other specified hypothyroidism Autoimmune thyroiditis Start: 05-25-2022 End: 08-09-2022 take 0.88 ug [...] mcg tablet Discontinued 100 ug PO DAILY 90 0 April 21, 2022 12:00am May 25, 2022 9:40am Start: 06-28-2017 End: 05-25-2022 take 1 tablet by mouth once daily Levothyroxine 88 MCG tablet Discontinued 88 ug PO DAILY June 28, 2017 12:00am May 25, 2022 9:37am Thyroid Start: 10-10-2016 take 1 tablet by brandy th once daily LEVOTHYROXINE SODIUM 88 MCG TABS One tablet by mouth daily LEVOTHYROXINE SODIUM [id number] Tessa Rutledge Start: 01-07-2014 End: 08-03-2016 take 1 tablet by mouth once daily LEVOTHYROXINE SODIUM 112 MCG TABS One tablet by mouth daily LEVOTHYROXINE SODIUM 44440261767 Catia Ferrera lidocaine 0.05 mg/mg medicated patch (12 sources) Antiarrhythmic, Amide Local Anesthetic Start: 04-06-2023 End: 06-27-2023 Lidocaine (Lidoderm) 5 % adhesive patch,medicated Discontinued 1 NMA TOPICAL DAILY 15 0 April 06, 2023 1:00am June 27, 2023 8:29am leave on most painful area for up to 12 hrs melatonin 10 mg sublingual tablet (20 sources) Start: 01-25-2022 End: 06-27-2023 take 1 tablet by mouth at bedtime Melatonin 10 mg Tablet, Sublingual Discontinued 10 mg PO AT BEDTIME 0 0 January 25, 2022 1:00am June 27, 2023 8:29am MULTIPLE VITAMINS-MINERAL S (4 sources) Start: 01-07-2014 take 1 tablet by mouth once daily PRESERVISION/LUTEIN CAPS One tablet by mouth daily MULTIPLE VITAMINS-MINERALS [id number] Catia Ferrera Start: 01-07-2014 End: 08-03-2016 take 1 tablet by mouth once daily PRESERVISION/LUTEIN CAPS One tablet by mouth daily MULTIPLE VITAMINS-MINERALS [id number] Bel Kaiser RN RN oxyCODONE hydrochloride 5 mg oral tablet (20 sources) Opioid Agonist Start: 03-12-2019 End: 03-15-2019 take 1 tablet by mouth every six hours as needed for pain Oxycodone 5 MG tablet Discontinued 5 mg PO EVERY 6 HOURS NEEDED as needed for Pain 12 3 0 March 12, 2019 March 14, 2019 1:00am March 15, 2019 1:09am Fracture of proximal end of humerus pravastatin sodium 40 mg oral tablet (20 [...] unspecified; Translations: [Hyperparathyroidism, unspecified] Chronic Other fractures (12 sources) Fracture of left rib; Translations: [Fracture of one rib, left side, initial encounter for closed fracture] 04-06-2023 Episodic Other injuries and conditions due to external causes (12 sources) Closed injury of head; Translations: [Unspecified [...] Test Name Value Interpretation Reference Range Facility [facility] 09-09-2024 ALDOLASE 4.0 U/L Normal 3.3-10.3 [facility] Comment on above: Order Comment: DR. Carmen RODRIGUEZ GETS CPK, CMP, CBCD AND ALDODASE. DR.LISA CHRISTIAN GETS TSH, T3F T4F Result Comment: Perf ormed at: - [facility] [address] [place], [place] [id number] Manager Fine Dining: Harley Griffith PhD, Phone: [phone] Performed By: #### L 3100.7000, L500.4050, L501.3620, L100.0100 #### [facility] [address] [place], [address] Absolute lymphocyte countOrd ered By: Catia Christian on 09-08-2024 Lymphocytes Auto (Unsp spec) [#/Vol] 1.75 10*3/uL 0.83-4.51 [facility] Absolute neutrophil countOrd ered By: Catia Christian on 09-08-2024 Neutrophils (Bld) [#/Vol] 4.8 10*3/uL 2.0-7.7 [facility] Aldolase ser/plasOrdered By: Catia Christian on 09-08-2024 Aldolase [Catalytic activity/Vol] 4.0 mU/mL 3.3-10.3 [facility] Comment on above: Performed at: [facility] - [facility] [id number] [place], [place] [id number] Director: Harley Griffith PhD, Phone: [phone] Anion gap in Serum or Plasma Ordered By: Catia Christian on 09-08-2024 Anion gap [Moles/Vol] 14 mmol/L 5-15 [facility] Automated lymphocyte count a s percentage of total leukocytesOrdered By: Catia Christian on 09-08-2024 Lymphocytes/100 WBC Auto (Unsp spec) 23.0 % 19-41 [facility] BUN/creatinine ratioOrdered By: Catia Christian on 09-08-2024 Urea nitrogen/Creatinine [Mass ratio] 14.3 mg/mg 10-20 [facility] Basophil percentageOrdered B y: Catia Christian on 09-08-2024 Basophils/100 WBC (Bld) 1.3 % High 0-1 [facility] Bilirubin, totalOrdered By: Catia Christian on 09-08-2024 Bilirubin [Mass/Vol] 0.47 mg/dL 0.00-1.30 [facility] CBC W/Diff, Automatedon Absolute Lymph 1.75 X10 3/uL Normal 0.83-4.51 [facility] Comment on above: Order Comment: DR. Carmen RODRIGUEZ GETS CPK, CMP, CBCD AND ALDODASE. DR.LISA CHRISTIAN GETS TSH, T3F T4F Performed By: #### L 3100.7000, L500.4050, L501.3620, L100.0100 #### [facility] [address] [place], [address] Absolute Neut 4.8 X10 3/uL Normal 2.0-7.7 [facility] Comment on above: Order Comment: DR. Carmen RODRIGUEZ GETS CPK, CMP, CBCD AND ALDODASE. DR.LISA CHRISTIAN GETS TSH, T3F T4F Performed By: #### L 3100.7000, L500.4050, L501.3620, L100.0100 #### [facility] [address] [place], [address] Basophils/100 WBC (Bld) 1.3 % High 0-1 [facility] Comment on above: Order Comment: DR. Carmen RODRIGUEZ GETS CPK, CMP, CBCD AND ALDODASE. DR.LISA CHRISTIAN GETS TSH, T3F T4F Performed By: #### L 3100.7000, L500.4050, L501.3620, L100.0100 #### [facility] [address] [place], [address] Eosinophils/100 WBC (Bld) 1.1 % Normal 0-5 [facility] Comment on above: Order Comment: DR. Carmen RODRIGUEZ GETS CPK, CMP, CBCD AND ALDODASE. DR.LISA CHRISTIAN GETS TSH, T3F T4F Performed By: #### L 3100.7000, L500.4050, L501.3620, L100.0100 #### [facility] [address] [place], [address] Erythrocyte distribution width (RBC) [Ratio] 13.7 % Normal 11.6-14.6 [facility] Comment on above: Order Comment: DR. Carmen RODRIGUEZ GETS CPK, CMP, CBCD AND ALDODASE. DR.LISA CHRISTIAN GETS TSH, T3F T4F Performed By: #### L 3100.7000, L500.4050, L501.3620, L100.0100 #### [facility] [address] [place], [address] Hematocrit (Bld) [Volume fraction] 44.6 % Normal 37-47 [facility] Comment on above: Order Comment: DR. Carmen RODRIGUEZ GETS CPK, CMP, CBCD AND ALDODASE. DR.LISA CHRISTIAN GETS TSH, T3F T4F Performed By: #### L 3100.7000, L500.4050, L501.3620, L100.0100 #### [facility] [address] [place], [address] Hemoglobin (Bld) [Mass/Vol] 14.9 g/dL Normal 12.0-15.0 [facility] Comment on above: Order Comment: DR. Carmen RODRIGUEZ GETS CPK, CMP, CBCD AND ALDODASE. DR.LISA CHRISTIAN GETS TSH, T3F T4F Performed By: #### L 3100.7000, L500.4050, L501.3620, L100.0100 #### [facility] [address] [place], [address] IG% 0.700 Normal 0.0-0.9 [facility] Comment on above: Order Comment: DR. Carmen RODRIGUEZ GETS CPK, CMP, CBCD AND ALDODASE. DR.LISA CHRISTIAN GETS TSH, T3F T4F Result Comment: IG% - Immature Granulocytes (promyelocytes, myelocytes and metamyelocytes) > 1% indicates that a LEFT SHIFT is Present. Performed By: #### L 3100.7000, L500.4050, L501.3620, L100.0100 #### [facility] [address] [place], [address] Lymphocytes/100 WBC (Bld) 23.0 % Normal 19-41 [facility] Comment on above: Order Comment: DR. Carmen RODRIGUEZ GETS CPK, CMP, CBCD AND ALDODASE. DR.LISA CHRISTIAN GETS TSH, T3F T4F Performed By: #### L 3100.7000, L500.4050, L501.3620, L100.0100 #### [facility] [address] [place], [address] MCH (RBC) [Entitic mass] 31.0 pg Normal 27.0-32.0 [facility] Comment on above: Order Comment: DR. Carmen RODRIGUEZ GETS CPK, CMP, CBCD AND ALDODASE. DR.LISA CHRISTIAN GETS TSH, T3F T4F Performed By: #### L 3100.7000, L500.4050, L501.3620, L100.0100 #### [facility] [address] [place], [address] MCHC (RBC) [Mass/Vol] 33.4 g/dL Normal 32-36 [facility] Comment on above: Order Comment: DR. Carmen RODRIGUEZ GETS CPK, CMP, CBCD AND ALDODASE. DR.LISA CHRISTIAN GETS TSH, T3F T4F Performed By: #### L 3100.7000, L500.4050, L501.3620, L100.0100 #### [facility] [address] [place], [address] MCV (RBC) [Entitic vol] 92.9 fL Normal 81-99 [facility] Comment on above: Order Comment: DR. Carmen RODRIGUEZ GETS CPK, CMP, CBCD AND ALDODASE. DR.LISA CHRISTIAN GETS TSH, T3F T4F Performed By: #### L 3100.7000, L500.4050, L501.3620, L100.0100 #### [facility] [address] [place], [address] Monocytes/100 WBC (Bld) 10.9 % High 0-10 [facility] Comment on above: Order Comment: DR. Carmen RODRIGUEZ GETS CPK, CMP, CBCD AND ALDODASE. DR.LISA CHRISTIAN GETS TSH, T3F T4F Performed By: #### L 3100.7000, L500.4050, L501.3620, L100.0100 #### [facility] [address] [place], [address] Neutrophils/100 WBC (Bld) 63.0 % Normal 47-70 [facility] Comment on above: Order Comment: DR. Carmen RODRIGUEZ GETS CPK, CMP, CBCD AND ALDODASE. DR.LISA CHRISTIAN GETS TSH, T3F T4F Performed By: #### L 3100.7000, L500.4050, L501.3620, L100.0100 #### [facility] [address] [place], [address] Nucleated RBC (Bld) [#/Vol] 0 10*3/uL Normal 0-5 [facility] Comment on above: Order Comment: DR. Carmen RODRIGUEZ GETS CPK, CMP, CBCD AND ALDODASE. DR.LISA CHRISTIAN GETS TSH, T3F T4F Performed By: #### L 3100.7000, L500.4050, L501.3620, L100.0100 #### [facility] [address] [place], [address] Platelet mean volume (Bld) [Entitic vol] 10.8 fL Normal 6.2-12.0 [facility] Comment on above: Order Comment: DR. Carmen RODRIGUEZ GETS CPK, CMP, CBCD AND ALDODASE. DR.LISA CHRISTIAN GETS TSH, T3F T4F Performed By: #### L 3100.7000, L500.4050, L501.3620, L100.0100 #### [facility] [address] [place], [address] Platelets (Bld) [#/Vol] 260 10*3/uL Normal 150-450 [facility] Comment on above: Order Comment: DR. Carmen RODRIGUEZ GETS CPK, CMP, CBCD AND ALDODASE. DR.LISA CHRISTIAN GETS TSH, T3F T4F Performed By: #### L 3100.7000, L500.4050, L501.3620, L100.0100 #### [facility] [facility] [address] [place], [address] RBC (Bld) [#/Vol] 4.80 10*6/uL Normal 4.2-5.4 [facility] Comment on above: Order Comment: DR. Carmen RODRIGUEZ GETS CPK, CMP, CBCD AND ALDODASE. DR.LISA CHRISTIAN GETS TSH, T3F T4F Performed By: #### L 3100.7000, L500.4050, L501.3620, L100.0100 #### [facility] [address] [place], [address] RDW SD 46.5 fl High 35.1-43.9 [facility] Comment on above: Order Comment: DR. Carmen RODRIGUEZ GETS CPK, CMP, CBCD AND ALDODASE. DR.LISA CHRISTIAN GETS TSH, T3F T4F Performed By: #### L 3100.7000, L500.4050, L501.3620, L100.0100 #### [facility] [address] [place], [address] WBC (Bld) [#/Vol] 7.6 10*3/uL Normal 4.4-11.0 [facility] Comment on above: Order Comment: DR. Carmen RODRIGUEZ GETS CPK, CMP, CBCD AND ALDODASE. DR.LISA CHRISTIAN GETS TSH, T3F T4F Performed By: #### L 3100.7000, L500.4050, L501.3620, L100.0100 #### [facility] [address] [place], [address] CPK Total, Creatine Kinaseon 09-08-2024 CPK TOTAL 34 U/L Normal 24-195 [facility] Comment on above: Order Comment: DR. Carmen RODRIGUEZ GETS CPK, CMP, CBCD AND ALDODASE. DR.LISA CHRISTIAN GETS TSH, T3F T4F Performed By: #### L 3100.7000, L500.4050, L501.3620, L100.0100 #### [facility] [address] [place], [address] Carbon dioxide, total [Moles /volume] in Central venous bloodOrdered By: Catia Christian on 09-08-2024 CO2 [Moles/Vol] 23.7 mmol/L 21.0-32.0 [facility] Chloride assayOrdered By: Rosalee Christian on 09-08-2024 Chloride [Moles/Vol] 102 mmol/L 98-108 [facility] Comprehensive Metabolic Prof ilon 09-08-2024 Albumin [Mass/Vol] 4.3 g/dL Normal 3.4-4.8 [facility] Comment on above: Order Comment: DR. Carmen RODRIGUEZ GETS CPK, CMP, CBCD AND ALDODASE. DR.LISA CHRISTIAN GETS TSH, T3F T4F Performed By: #### L 3100.7000, L500.4050, L501.3620, L100.0100 #### [facility] [address] [place], [address] Albumin/Globulin [Mass ratio] 1.3 {ratio} Normal 0.9-2.4 [facility] Comment on above: Order Comment: DR. Carmen RODRIGUEZ GETS CPK, CMP, CBCD AND ALDODASE. DR.LISA CRHISTIAN GETS TSH, T3F T4F Performed By: #### L 3100.7000, L500.4050, L501.3620, L100.0100 #### [facility] [address] [place], [address] ALK PHOS 86 U/L Normal 35-104 [facility] Comment on above: Order Comment: DR. Carmen RODRIGUEZ GETS CPK, CMP, CBCD AND ALDODASE. DR.LISA CHRISTIAN GETS TSH, T3F T4F Performed By: #### L 3100.7000, L500.4050, L501.3620, L100.0100 #### [facility] [address] [place], [address] ALT [Catalytic activity/Vol] 23 U/L Normal <=34 [facility] Comment on above: Order Comment: DR. Carmen RODRIGUEZ GETS CPK, CMP, CBCD AND ALDODASE. DR.LISA CHRISTIAN GETS TSH, T3F T4F Performed By: #### L 3100.7000, L500.4050, L501.3620, L100.0100 #### [facility] [address] [place], [address] AST [Catalytic activity/Vol] 21 U/L Normal <=31 [facility] Comment on above: Order Comment: DR. Carmen RODRIGUEZ GETS CPK, CMP, CBCD AND ALDODASE. DR.LISA CHRISTIAN GETS TSH, T3F T4F Performed By: #### L 3100.7000, L500.4050, L501.3620, L100.0100 #### [facility] [address] [place], [address] Bilirubin [Mass/Vol] 0.47 mg/dL Normal 0.00-1.30 [facility] Comment on above: Order Comment: DR. Carmen RODRIGUEZ GETS CPK, CMP, CBCD AND ALDODASE. DR.LISA CHRISTIAN GETS TSH, T3F T4F Performed By: #### L 3100.7000, L500.4050, L501.3620, L100.0100 #### [facility] [address] [place], [address] BUN/CRE 14.3 RATIO Normal 10-20 [facility] Comment on above: Order Comment: DR. Carmen RODRIGUEZ GETS CPK, CMP, CBCD AND ALDODASE. DR.LISA CHRISTIAN GETS TSH, T3F T4F Performed By: #### L 3100.7000, L500.4050, L501.3620, L100.0100 #### [facility] [address] [place], [address] Calcium [Mass/Vol] 10.3 mg/dL Normal 7.6-11.0 [facility] Comment on above: Order Comment: DR. Carmen RODRIGUEZ GETS CPK, CMP, CBCD AND ALDODASE. DR.LISA CHRISTIAN GETS TSH, T3F T4F Performed By: #### L 3100.7000, L500.4050, L501.3620, L100.0100 #### [facility] [address] [place], [address] Chloride [Moles/Vol] 102 mmol/L Normal 98-108 [facility] Comment on above: Order Comment: DR. Carmen RODRIGUEZ GETS CPK, CMP, CBCD AND ALDODASE. DR.LISA CHRISTIAN GETS TSH, T3F T4F Performed By: #### L 3100.7000, L500.4050, L501.3620, L100.0100 #### [facility] [address] [place], [address] CO2 [Moles/Vol] 23.7 mmol/L Normal 21.0-32.0 [facility] Comment on above: Order Comment: DR. Carmen RODRIGUEZ GETS CPK, CMP, CBCD AND ALDODASE. DR.LISA CHRISTIAN GETS TSH, T3F T4F Performed By: #### L 3100.7000, L500.4050, L501.3620, L100.0100 #### [facility] [address] [place], [address] Creatinine [Mass/Vol] 0.65 mg/dL Low 0.70-1.20 [facility] Comment on above: Order Comment: DR. Carmen RODRIGUEZ GETS CPK, CMP, CBCD AND ALDODASE. DR.LISA CHRISTIAN GETS TSH, T3F T4F Performed By: #### L 3100.7000, L500.4050, L501.3620, L100.0100 #### [facility] [address] [place], [address] GAP 14 Normal 5-15 [facility] Comment on above: Order Comment: DR. Carmen RODRIGUEZ GETS CPK, CMP, CBCD AND ALDODASE. DR.LISA CHRISTIAN GETS TSH, T3F T4F Performed By: #### L 3100.7000, L500.4050, L501.3620, L100.0100 #### [facility] [address] [place], [address] GFR/1.73 sq M.predicted among non-blacks MDRD (S/P/Bld) [Vol rate/Area] 85 mL/min/{1.73_m2} Normal >60 [facility] Comment on above: Order Comment: DR. Carmen RODRIGUEZ GETS CPK, CMP, CBCD AND ALDODASE. DR.LISA CHRISTIAN GETS TSH, T3F T4F Result Comment: mL/m in/1.73m2 CKD-EPI Creatinine Equation (2020) Performed By: #### L 3100.7000, L500.4050, L501.3620, L100.0100 #### [facility] [address] [place], [address] Globulin (S) [Mass/Vol] 3.4 g/dL Normal 2.2-4.2 [facility] Comment on above: Order Comment: DR. Carmen RODRIGUEZ GETS CPK, CMP, CBCD AND ALDODASE. DR.LISA CHRISTIAN GETS TSH, T3F T4F Performed By: #### L 3100.7000, L500.4050, L501.3620, L100.0100 #### [facility] [address] [place], [address] Glucose [Mass/Vol] 149 mg/dL High 70-99 [facility] Comment on above: Order Comment: DR. Carmen RODRIGUEZ GETS CPK, CMP, CBCD AND ALDODASE. DR.LISA CHRISTIAN GETS TSH, T3F T4F Performed By: #### L 3100.7000, L500.4050, L501.3620, L100.0100 #### [facility] [address] [place], [address] Potassium [Moles/Vol] 3.8 mmol/L Normal 3.3-5.1 [facility] Comment on above: Order Comment: DR. Carmen RODRIGUEZ GETS CPK, CMP, CBCD AND ALDODASE. DR.LISA CHRISTIAN GETS TSH, T3F T4F Performed By: #### L 3100.7000, L500.4050, L501.3620, L100.0100 #### [facility] [address] [place], [address] Sodium [Moles/Vol] 140 mmol/L Normal 133-145 [facility] Comment on above: Order Comment: DR. Carmen RODRIGUEZ GETS CPK, CMP, CBCD AND ALDODASE. DR.LISA CHRISTIAN GETS TSH, T3F T4F Performed By: #### L 3100.7000, L500.4050, L501.3620, L100.0100 #### [facility] [address] [place], [place], [id number] T PROT 7.7 g/dL Normal 5.9-8.4 [facility] Comment on above: Order Comment: DR. Carmen RODRIGUEZ GETS CPK, CMP, CBCD AND ALDODASE. DR.LISA CHRISTIAN GETS TSH, T3F T4F Performed By: #### L 3100.7000, L500.4050, L501.3620, L100.0100 #### [facility] [address] [place], [address] Urea nitrogen [Mass/Vol] 9 mg/dL Normal 4-19 [facility] Comment on above: Order Comment: DR. Carmen RODRIGUEZ GETS CPK, CMP, CBCD AND ALDODASE. DR.LISA CHRISTIAN GETS TSH, T3F T4F Performed By: #### L 3100.7000, L500.4050, L501.3620, L100.0100 #### [facility] [address] [place], [place], [address] Eosinophil percentageOrdered By: Catia Christian on 09-08-2024 Eosinophils/100 WBC (Bld) 1.1 % 0-5 [facility] Erythrocyte distribution wid th ratioOrdered By: Catia Christian on 09-08-2024 Erythrocyte distribution width (RBC) [Ratio] 13.7 % 11.6-14.6 [facility] Erythrocyte distribution wid th standard deviationOrdered By: Catia Christian on 09-08-2024 Erythrocyte distribution width (RBC) [Ratio] 46.5 fl High 35.1-43.9 [facility] Free T3on 09-08-2024 Free T3 [Mass/Vol] 3.4 pg/mL Normal 2.18-3.98 [facility] Comment on above: Order Comment: DR. Carmen RODRIGUEZ GETS CPK, CMP, CBCD AND ALDODASE. DR.LISA CHRISTIAN GETS TSH, T3F T4F Performed By: #### L 3100.7000, L500.4050, L501.3620, L100.0100 #### [facility] [place], [address] Free A2Sgmjeao By: Catia lowery on 09-08-2024 Free T3 [Mass/Vol] 3.4 pg/mL 2.18-3.98 [facility] Glomerular filtration rate ( GFR) estimation/1.73 sq m using serum, plasma, or whole bOrdered By: Catia Christian on 09-08-2024 GFR/1.73 sq M.predicted among non-blacks MDRD (S/P/Bld) [Vol rate/Area] 85 mL/min/{1.73_m2} >60 [facility] Comment on above: mL/min/1.73m2 CKD-EP I Creatinine Equation (2020) Hematocrit Auto (Bld) [Volum e fraction]Ordered By: Catia Christian on 09-08-2024 Hematocrit (Bld) [Volume fraction] 44.6 % 37-47 [facility] Hemoglobin measurementOrdere d By: Catia Christian on 09-08-2024 Hemoglobin (Bld) [Mass/Vol] 14.9 g/dL 12.0-15.0 [facility] Immature granulocytes/100 WB C Auto (Bld)Ordered By: Catia Christian on 09-08-2024 Immature granulocytes/100 WBC (Bld) 0.700 % 0.0-0.9 [facility] Comment on above: IG% - Immature Granu locytes (promyelocytes, myelocytes and metamyelocytes) > 1% indicates that a LEFT SHIFT is Present. Laboratory - Chemistry and C hemistry - challengeOrdered By: Catia Christian on 09-08-2024 AST [Catalytic activity/Vol] 21 U/L <32 [facility] MCV (mean corpuscular volume ) determinationOrdered By: Catia Christian on 09-08-2024 MCV (RBC) [Entitic vol] 92.9 fL 81-99 [facility] Mean corpuscular hemoglobin (MCH) determinationOrdered By: Catia Christian on 09-08-2024 MCH (RBC) [Entitic mass] 31.0 pg 27.0-32.0 [facility] Mean corpuscular hemoglobin concentration (MCHC) determinationOrdered By: Catia Christian on 09-08-2024 MCHC (RBC) [Mass/Vol] 33.4 g/dL 32-36 [facility] Mean platelet volume determi nationOrdered By: Catia Christian on 09-08-2024 Platelet mean volume (Bld) [Entitic vol] 10.8 fL 6.2-12.0 [facility] Monocyte percentageOrdered B y: Catia Christian on 09-08-2024 Monocytes/100 WBC (Bld) 10.9 % High 0-10 [facility] Neutrophil percentageOrdered By: Catia Christian on 09-08-2024 Neutrophils/100 WBC (Bld) 63.0 % 47-70 [facility] Nucleated red blood cell per centageOrdered By: Catia Christian on 09-08-2024 Nucleated RBC/100 WBC (Bld) [Ratio] 0 % 0-5 [facility] Platelet countOrdered By: Rosalee Christian on 09-08-2024 Platelets (Bld) [#/Vol] 260 10*3/uL 150-450 [facility] Potassium measurement (mass/ volume)Ordered By: Catia hCristian on 09-08-2024 Potassium (Unsp spec) [Mass/Vol] 3.8 mmol/L 3.3-5.1 [facility] RBC Auto (Bld) [#/Vol]Ordere d By: Catia Christian on 09-08-2024 RBC (Bld) [#/Vol] 4.80 10*6/uL 4.2-5.4 [facility] Serum creatinine measurement (mass/volume)Ordered By: Catia Christian on 09-08-2024 Creatinine [Mass/Vol] 0.65 mg/dL Low 0.70-1.20 [facility] Serum globulin measurementOr dered By: Catia Christian on 09-08-2024 Globulin (S) [Mass/Vol] 3.4 g/dL 2.2-4.2 [facility] Serum glucose measurement (m ass/volume)Ordered By: Catia Christian on 09-08-2024 Glucose [Mass/Vol] 149 mg/dL High 70-99 [facility] Serum or plasma alanine myers otransferase (ALT) measurementOrdered By: Catia Christian on 09-08-2024 ALT [Catalytic activity/Vol] 23 U/L <35 [facility] Serum or plasma albumin nancy urement (mass/volume)Ordered By: Catia Christian on 09-08-2024 Albumin [Mass/Vol] 4.3 g/dL 3.4-4.8 [facility] Serum or plasma albumin/glob ulin mass ratioOrdered By: Catia Christian on 09-08-2024 Albumin/Globulin [Mass ratio] 1.3 {ratio} 0.9-2.4 [facility] Serum or plasma alkaline lindsey sphatase measurementOrdered By: Catia Christian on 09-08-2024 ALP [Catalytic activity/Vol] 86 U/L 35-104 [facility] Serum or plasma calcium nancy urement (mass/volume)Ordered By: Catia Christian on 09-08-2024 Calcium [Mass/Vol] 10.3 mg/dL 7.6-11.0 [facility] Serum or plasma creatine kin ase activityOrdered By: Catia Christian on 09-08-2024 CK [Catalytic activity/Vol] 34 U/L 24-195 [facility] Serum or plasma urea nitroge n measurement (mass/volume)Ordered By: Catia Christian on 09-08-2024 Urea nitrogen [Mass/Vol] 9 mg/dL 4-19 [facility] Sodium levelOrdered By: Catia Christian on 09-08-2024 Sodium [Moles/Vol] 140 mmol/L 133-145 [facility] T4 Free Directon 09-08-2024 T4 FREE DIRECT 1.70 ng/dL High 0.76-1.46 [facility] Comment on above: Order Comment: DR. Carmen RODRIGUEZ GETS CPK, CMP, CBCD AND ALDODASE. DR.LISA CHRISTIAN GETS TSH, T3F T4F Performed By: #### L 3100.7000, L500.4050, L501.3620, L100.0100 #### [facility] [address] [place], [place], [id number] T4 freeOrdered By: Catia lowery on 09-08-2024 Free T4 [Mass/Vol] 1.70 ng/dL High 0.76-1.46 [facility] TSH DL <= 0.005 mIU/L QnOrde red By: Catia Christian on 09-08-2024 TSH Qn 0.123 uIU/mL Low 0.300-4.200 [facility] Thyroid Stim Hormone (TSH)on 09-08-2024 TSH 0.123 uIU/mL Low 0.300-4.200 [facility] Comment on above: Order Comment: DR. Carmen RODRIGUEZ GETS CPK, CMP, CBCD AND ALDODASE. DR.LISA CHRISTIAN GETS TSH, T3F T4F Performed By: #### L 3100.7000, L500.4050, L501.3620, L100.0100 #### [facility] [address] [place], [address] Total proteinOrdered By: Antonette Christian on 09-08-2024 Protein [Mass/Vol] 7.7 g/dL 5.9-8.4 [facility] White blood cell (WBC) count Ordered By: Catia Christian on 09-08-2024 WBC (Bld) [#/Vol] 7.6 10*3/uL 4.4-11.0 [facility] Absolute lymphocyte countOrd ered By: Natalie Rodriguez on 06-12-2024 Lymphocytes Auto (Unsp spec) [#/Vol] 1.45 10*3/uL 0.83-4.51 [facility] Absolute neutrophil countOrd ered By: Natalie Rodriguez on 06-12-2024 Neutrophils (Bld) [#/Vol] 4.5 10*3/uL 2.0-7.7 [facility] Anion gap in Serum or Plasma Ordered By: Natalie Rodriguez on 06-12-2024 Anion gap [Moles/Vol] 12 mmol/L 5-15 [facility] Automated lymphocyte count a s percentage of total leukocytesOrdered By: Natalie Rodriguez on 06-12-2024 Lymphocytes/100 WBC Auto (Unsp spec) 21.6 % 19-41 [facility] BUN/creatinine ratioOrdered By: Natalie Angki on 06-12-2024 Urea nitrogen/Creatinine [Mass ratio] 15.2 mg/mg 10-20 [facility] Basophil percentageOrdered B y: Natalie Jennifer on 06-12-2024 Basophils/100 WBC (Bld) 1.3 % High 0-1 [facility] Bilirubin, totalOrdered By: Natalie Jennifer on 06-12-2024 Bilirubin [Mass/Vol] 0.51 mg/dL 0.00-1.30 [facility] CBC W/Diff, Automatedon Absolute Lymph 1.45 X10 3/uL Normal 0.83-4.51 [facility] Comment on above: Performed By: #### L 500.4050, L100.0100, L501.3620 #### [facility] [address] [place], [address] Absolute Neut 4.5 X10 3/uL Normal 2.0-7.7 [facility] Comment on above: Performed By: #### L 500.4050, L100.0100, L501.3620 #### [facility] [address] [place], [address] Basophils/100 WBC (Bld) 1.3 % High 0-1 [facility] Comment on above: Performed By: #### L 500.4050, L100.0100, L501.3620 #### [facility] [address] [place], [address] Eosinophils/100 WBC (Bld) 1.0 % Normal 0-5 [facility] Comment on above: Performed By: #### L 500.4050, L100.0100, L501.3620 #### [facility] [address] [place], [address] Erythrocyte distribution width (RBC) [Ratio] 13.5 % Normal 11.6-14.6 [facility] Comment on above: Performed By: #### L 500.4050, L100.0100, L501.3620 #### [facility] [address] [place], [address] Hematocrit (Bld) [Volume fraction] 41.9 % Normal 37-47 [facility] Comment on above: Performed By: #### L 500.4050, L100.0100, L501.3620 #### [facility] [address] [place], [address] Hemoglobin (Bld) [Mass/Vol] 14.4 g/dL Normal 12.0-15.0 [facility] Comment on above: Performed By: #### L 500.4050, L100.0100, L501.3620 #### [facility] [address] [place], [address] IG% 0.400 Normal 0.0-0.9 [facility] Comment on above: Result Comment: IG% - Immature Granulocytes (promyelocytes, myelocytes and metamyelocytes) > 1% indicates that a LEFT SHIFT is Present. Performed By: #### L 500.4050, L100.0100, L501.3620 #### [facility] [address] [place], [address] Lymphocytes/100 WBC (Bld) 21.6 % Normal 19-41 [facility] Comment on above: Performed By: #### L 500.4050, L100.0100, L501.3620 #### [facility] [address] [place], [address] MCH (RBC) [Entitic mass] 31.6 pg Normal 27.0-32.0 [facility] Comment on above: Performed By: #### L 500.4050, L100.0100, L501.3620 #### [facility] [address] [place], [address] MCHC (RBC) [Mass/Vol] 34.4 g/dL Normal 32-36 [facility] Comment on above: Performed By: #### L 500.4050, L100.0100, L501.3620 #### [facility] [address] [place], [address] MCV (RBC) [Entitic vol] 91.9 fL Normal 81-99 [facility] Comment on above: Performed By: #### L 500.4050, L100.0100, L501.3620 #### [facility] [address] [place], [address] Monocytes/100 WBC (Bld) 8.5 % Normal 0-10 [facility] Comment on above: Performed By: #### L 500.4050, L100.0100, L501.3620 #### [facility] [address] [place], [address] Neutrophils/100 WBC (Bld) 67.2 % Normal 47-70 [facility] Comment on above: Performed By: #### L 500.4050, L100.0100, L501.3620 #### [facility] [address] [place], [address] Nucleated RBC (Bld) [#/Vol] 0 10*3/uL Normal 0-5 [facility] Comment on above: Performed By: #### L 500.4050, L100.0100, L501.3620 #### [facility] [address] [place], [address] Platelet mean volume (Bld) [Entitic vol] 9.7 fL Normal 6.2-12.0 [facility] Comment on above: Performed By: #### L 500.4050, L100.0100, L501.3620 #### [facility] [address] [place], [address] Platelets (Bld) [#/Vol] 318 10*3/uL Normal 150-450 [facility] Comment on above: Performed By: #### L 500.4050, L100.0100, L501.3620 #### [facility] [address] [place], [address] RBC (Bld) [#/Vol] 4.56 10*6/uL Normal 4.2-5.4 [facility] Comment on above: Performed By: #### L 500.4050, L100.0100, L501.3620 #### [facility] [address] [place], [address] RDW SD 44.8 fl High 35.1-43.9 [facility] Comment on above: Performed By: #### L 500.4050, L100.0100, L501.3620 #### [facility] [address] [place], [address] WBC (Bld) [#/Vol] 6.7 10*3/uL Normal 4.4-11.0 [facility] Comment on above: Performed By: #### L 500.4050, L100.0100, L501.3620 #### [facility] [address] [place], [address] CPK Total, Creatine Kinaseon 06-12-2024 CPK TOTAL 32 U/L Normal 24-195 [facility] Comment on above: Performed By: #### L 500.4050, L100.0100, L501.3620 #### [facility] [address] [place], [address] Carbon dioxide, total [Moles /volume] in Central venous bloodOrdered By: Natalie Rodriguez on 06-12-2024 CO2 [Moles/Vol] 21.9 mmol/L 21.0-32.0 [facility] Chloride assayOrdered By: Wilfrido Rodriguez on 06-12-2024 Chloride [Moles/Vol] 103 mmol/L 98-108 [facility] Comprehensive Metabolic Prof ilon 06-12-2024 Albumin [Mass/Vol] 4.0 g/dL Normal 3.4-4.8 [facility] Comment on above: Performed By: #### L 500.4050, L100.0100, L501.3620 #### [facility] [address] [place], [address] Albumin/Globulin [Mass ratio] 1.0 {ratio} Normal 0.9-2.4 [facility] Comment on above: Performed By: #### L 500.4050, L100.0100, L501.3620 #### [facility] [address] [place], [address] ALK PHOS 64 U/L Normal 35-104 [facility] Comment on above: Performed By: #### L 500.4050, L100.0100, L501.3620 #### [facility] [address] [place], [address] ALT [Catalytic activity/Vol] 36 U/L High <=34 [facility] Comment on above: Performed By: #### L 500.4050, L100.0100, L501.3620 #### [facility] [address] [place], [address] AST [Catalytic activity/Vol] 29 U/L Normal <=31 [facility] Comment on above: Performed By: #### L 500.4050, L100.0100, L501.3620 #### [facility] [address] [place], [address] Bilirubin [Mass/Vol] 0.51 mg/dL Normal 0.00-1.30 [facility] Comment on above: Performed By: #### L 500.4050, L100.0100, L501.3620 #### [facility] [address] [place], [address] BUN/CRE 15.2 RATIO Normal 10-20 [facility] Comment on above: Performed By: #### L 500.4050, L100.0100, L501.3620 #### [facility] [address] [place], [address] Calcium [Mass/Vol] 9.7 mg/dL Normal 7.6-11.0 [facility] Comment on above: Performed By: #### L 500.4050, L100.0100, L501.3620 #### [facility] [address] [place], [address] Chloride [Moles/Vol] 103 mmol/L Normal 98-108 [facility] Comment on above: Performed By: #### L 500.4050, L100.0100, L501.3620 #### [facility] [address] [place], [address] CO2 [Moles/Vol] 21.9 mmol/L Normal 21.0-32.0 [facility] Comment on above: Performed By: #### L 500.4050, L100.0100, L501.3620 #### [facility] [address] [place], [address] Creatinine [Mass/Vol] 0.59 mg/dL Low 0.70-1.20 [facility] Comment on above: Performed By: #### L 500.4050, L100.0100, L501.3620 #### [facility] [address] [place], [address] GAP 12 Normal 5-15 [facility] Comment on above: Performed By: #### L 500.4050, L100.0100, L501.3620 #### [facility] [address] [place], [address] GFR/1.73 sq M.predicted among non-blacks MDRD (S/P/Bld) [Vol rate/Area] 87 mL/min/{1.73_m2} Normal >60 [facility] Comment on above: Result Comment: mL/m in/1.73m2 CKD-EPI Creatinine Equation (2020) Performed By: #### L 500.4050, L100.0100, L501.3620 #### [facility] [address] [place], [address] Globulin (S) [Mass/Vol] 4.1 g/dL Normal 2.2-4.2 [facility] Comment on above: Performed By: #### L 500.4050, L100.0100, L501.3620 #### [facility] [address] [place], [address] Glucose [Mass/Vol] 176 mg/dL High 70-99 [facility] Comment on above: Performed By: #### L 500.4050, L100.0100, L501.3620 #### [facility] [address] [place], [address] Potassium [Moles/Vol] 3.9 mmol/L Normal 3.3-5.1 [facility] Comment on above: Performed By: #### L 500.4050, L100.0100, L501.3620 #### [facility] [address] [place], [address] Sodium [Moles/Vol] 136 mmol/L Normal 133-145 [facility] Comment on above: Performed By: #### L 500.4050, L100.0100, L501.3620 #### [facility] [address] [place], [address] T PROT 8.1 g/dL Normal 5.9-8.4 [facility] Comment on above: Performed By: #### L 500.4050, L100.0100, L501.3620 #### [facility] [address] [place], [address] Urea nitrogen [Mass/Vol] 9 mg/dL Normal 4-19 [facility] Comment on above: Performed By: #### L 500.4050, L100.0100, L501.3620 #### [facility] [address] [place], [address] Eosinophil percentageOrdered By: Natalie Rodriguez on 06-12-2024 Eosinophils/100 WBC (Bld) 1.0 % 0-5 [facility] Erythrocyte distribution wid th ratioOrdered By: Natalie Rodriguez on 06-12-2024 Erythrocyte distribution width (RBC) [Ratio] 13.5 % 11.6-14.6 [facility] Erythrocyte distribution wid th standard deviationOrdered By: Natalie Rodriguez on 06-12-2024 Erythrocyte distribution width (RBC) [Ratio] 44.8 fl High 35.1-43.9 [facility] Glomerular filtration rate ( GFR) estimation/1.73 sq m using serum, plasma, or whole bOrdered By: Natalie Rodriguez on 06-12-2024 GFR/1.73 sq M.predicted among non-blacks MDRD (S/P/Bld) [Vol rate/Area] 87 mL/min/{1.73_m2} >60 [facility] Comment on above: mL/min/1.73m2 CKD-EP I Creatinine Equation (2020) Hematocrit Auto (Bld) [Volum e fraction]Ordered By: Natalie Rodriguez on 06-12-2024 Hematocrit (Bld) [Volume fraction] 41.9 % 37-47 [facility] Hemoglobin measurementOrdere d By: Natalie Rodriguez on 06-12-2024 Hemoglobin (Bld) [Mass/Vol] 14.4 g/dL 12.0-15.0 [facility] Immature granulocytes/100 WB C Auto (Bld)Ordered By: Natalie Rodriguez on 06-12-2024 Immature granulocytes/100 WBC (Bld) 0.400 % 0.0-0.9 [facility] Comment on above: IG% - Immature Granu locytes (promyelocytes, myelocytes and metamyelocytes) > 1% indicates that a LEFT SHIFT is Present. Laboratory - Chemistry and C hemistry - challengeOrdered By: Natalie Rodriguez on 06-12-2024 AST [Catalytic activity/Vol] 29 U/L <32 [facility] MCV (mean corpuscular volume ) determinationOrdered By: Natalie Rodriguez on 06-12-2024 MCV (RBC) [Entitic vol] 91.9 fL 81-99 [facility] Mean corpuscular hemoglobin (MCH) determinationOrdered By: Natalie Rodriguez on 06-12-2024 MCH (RBC) [Entitic mass] 31.6 pg 27.0-32.0 [facility] Mean corpuscular hemoglobin concentration (MCHC) determinationOrdered By: Natalie Rodriguez on 06-12-2024 MCHC (RBC) [Mass/Vol] 34.4 g/dL 32-36 [facility] Mean platelet volume determi nationOrdered By: Natalie Rodriguez on 06-12-2024 Platelet mean volume (Bld) [Entitic vol] 9.7 fL 6.2-12.0 [facility] Monocyte percentageOrdered B y: Natalie Rodriguez on 06-12-2024 Monocytes/100 WBC (Bld) 8.5 % 0-10 [facility] Neutrophil percentageOrdered By: Natalie Rodriguez on 06-12-2024 Neutrophils/100 WBC (Bld) 67.2 % 47-70 [facility] Nucleated red blood cell per centageOrdered By: Natalie Rodriguez on 06-12-2024 Nucleated RBC/100 WBC (Bld) [Ratio] 0 % 0-5 [facility] Platelet countOrdered By: Wilfrido Rodriguez on 06-12-2024 Platelets (Bld) [#/Vol] 318 10*3/uL 150-450 [facility] Potassium measurement (mass/ volume)Ordered By: Natalie Rodriguez on 06-12-2024 Potassium (Unsp spec) [Mass/Vol] 3.9 mmol/L 3.3-5.1 [facility] RBC Auto (Bld) [#/Vol]Ordere d By: Natalie Rodriguez on 06-12-2024 RBC (Bld) [#/Vol] 4.56 10*6/uL 4.2-5.4 [facility] Serum creatinine measurement (mass/volume)Ordered By: Natalie Rodriguez on 06-12-2024 Creatinine [Mass/Vol] 0.59 mg/dL Low 0.70-1.20 [facility] Serum globulin measurementOr dered By: Natalie Rodriguez on 06-12-2024 Globulin (S) [Mass/Vol] 4.1 g/dL 2.2-4.2 [facility] Serum glucose measurement (m ass/volume)Ordered By: Natalie Rodriguez on 06-12-2024 Glucose [Mass/Vol] 176 mg/dL High 70-99 [facility] Serum or plasma alanine myers otransferase (ALT) measurementOrdered By: Natalie Rodriguez on 06-12-2024 ALT [Catalytic activity/Vol] 36 U/L High <35 [facility] Serum or plasma albumin nancy urement (mass/volume)Ordered By: Natalie Rodriguez on 06-12-2024 Albumin [Mass/Vol] 4.0 g/dL 3.4-4.8 [facility] Serum or plasma albumin/glob ulin mass ratioOrdered By: Natalie Rodriguez on 06-12-2024 Albumin/Globulin [Mass ratio] 1.0 {ratio} 0.9-2.4 [facility] Serum or plasma alkaline lindsey sphatase measurementOrdered By: Natalie Rodriguez on 06-12-2024 ALP [Catalytic activity/Vol] 64 U/L 35-104 [facility] Serum or plasma calcium nancy urement (mass/volume)Ordered By: Natalie Rodriguez on 06-12-2024 Calcium [Mass/Vol] 9.7 mg/dL 7.6-11.0 [facility] Serum or plasma creatine kin ase activityOrdered By: Natalie Rodriguez on 06-12-2024 CK [Catalytic activity/Vol] 32 U/L 24-195 [facility] Serum or plasma urea nitroge n measurement (mass/volume)Ordered By: Natalie Rodriguez on 06-12-2024 Urea nitrogen [Mass/Vol] 9 mg/dL 4-19 [facility] Sodium levelOrdered By: Shawna Rodriguez on 06-12-2024 Sodium [Moles/Vol] 136 mmol/L 133-145 [facility] Total proteinOrdered By: Layne Rodriguez on 06-12-2024 Protein [Mass/Vol] 8.1 g/dL 5.9-8.4 [facility] White blood cell (WBC) count Ordered By: Natalie Rodriguez on 06-12-2024 WBC (Bld) [#/Vol] 6.7 10*3/uL 4.4-11.0 [facility] Absolute lymphocyte countOrd ered By: Catia Christian on 04-22-2024 Lymphocytes Auto (Unsp spec) [#/Vol] 1.19 10*3/uL 0.83-4.51 [facility] Absolute neutrophil countOrd ered By: Catia Christian on 04-22-2024 Neutrophils (Bld) [#/Vol] 4.2 10*3/uL 2.0-7.7 [facility] Anion gap in Serum or Plasma Ordered By: Catia Christian on 04-22-2024 Anion gap [Moles/Vol] 13 mmol/L 5-15 [facility] Automated lymphocyte count a s percentage of total leukocytesOrdered By: Catia Christian on 04-22-2024 Lymphocytes/100 WBC Auto (Unsp spec) 19.1 % 19-41 [facility] BUN/creatinine ratioOrdered By: Catia Christian on 04-22-2024 Urea nitrogen/Creatinine [Mass ratio] 14.5 mg/mg 10-20 [facility] Basophil percentageOrdered B y: Catia Christian on 04-22-2024 Basophils/100 WBC (Bld) 1.1 % High 0-1 [facility] Bilirubin, totalOrdered By: Catia Christian on 04-22-2024 Bilirubin [Mass/Vol] 0.52 mg/dL 0.00-1.30 [facility] CBC W/Diff, Automatedon 04-05 Absolute Lymph 1.19 X10 3/uL Normal 0.83-4.51 [facility] Comment on above: Performed By: #### L 501.70352, L506.0400, L501.3620, L500.4050, L100.0100, L501.9520 #### [facility] [place], [address] Absolute Neut 4.2 X10 3/uL Normal 2.0-7.7 [facility] Comment on above: Performed By: #### L 501.47007, L506.0400, L501.3620, L500.4050, L100.0100, L501.9520 #### [facility] [address] [place], [address] Basophils/100 WBC (Bld) 1.1 % High 0-1 [facility] Comment on above: Performed By: #### L 501.72074, L506.0400, L501.3620, L500.4050, L100.0100, L501.9520 #### [facility] [address] [place], [address] Eosinophils/100 WBC (Bld) 0.8 % Normal 0-5 [facility] Comment on above: Performed By: #### L 501.38350, L506.0400, L501.3620, L500.4050, L100.0100, L501.9520 #### [facility] [address] [place], [address] Erythrocyte distribution width (RBC) [Ratio] 14.4 % Normal 11.6-14.6 [facility] Comment on above: Performed By: #### L 501.85715, L506.0400, L501.3620, L500.4050, L100.0100, L501.9520 #### [facility] [address] [place], [address] Hematocrit (Bld) [Volume fraction] 41.3 % Normal 37-47 [facility] Comment on above: Performed By: #### L 501.16573, L506.0400, L501.3620, L500.4050, L100.0100, L501.9520 #### [facility] [address] [place], [address] Hemoglobin (Bld) [Mass/Vol] 14.4 g/dL Normal 12.0-15.0 [facility] Comment on above: Performed By: #### L 501.78738, L506.0400, L501.3620, L500.4050, L100.0100, L501.9520 #### [facility] [address] [place], [address] IG% 0.500 Normal 0.0-0.9 [facility] Comment on above: Result Comment: IG% - Immature Granulocytes (promyelocytes, myelocytes and metamyelocytes) > 1% indicates that a LEFT SHIFT is Present. Performed By: #### L 501.71323, L506.0400, L501.3620, L500.4050, L100.0100, L501.9520 #### [facility] [address] [place], [address] Lymphocytes/100 WBC (Bld) 19.1 % Normal 19-41 [facility] Comment on above: Performed By: #### L 501.39154, L506.0400, L501.3620, L500.4050, L100.0100, L501.9520 #### [facility] [address] [place], [address] MCH (RBC) [Entitic mass] 31.8 pg Normal 27.0-32.0 [facility] Comment on above: Performed By: #### L 501.07779, L506.0400, L501.3620, L500.4050, L100.0100, L501.9520 #### [facility] [address] [place], [address] MCHC (RBC) [Mass/Vol] 34.9 g/dL Normal 32-36 [facility] Comment on above: Performed By: #### L 501.62245, L506.0400, L501.3620, L500.4050, L100.0100, L501.9520 #### [facility] [address] [place], [address] MCV (RBC) [Entitic vol] 91.2 fL Normal 81-99 [facility] Comment on above: Performed By: #### L 501.94134, L506.0400, L501.3620, L500.4050, L100.0100, L501.9520 #### [facility] [address] [place], [address] Monocytes/100 WBC (Bld) 11.4 % High 0-10 [facility] Comment on above: Performed By: #### L 501.52941, L506.0400, L501.3620, L500.4050, L100.0100, L501.9520 #### [facility] [address] [place], [address] Neutrophils/100 WBC (Bld) 67.1 % Normal 47-70 [facility] Comment on above: Performed By: #### L 501.71805, L506.0400, L501.3620, L500.4050, L100.0100, L501.9520 #### [facility] [address] [place], [address] Nucleated RBC (Bld) [#/Vol] 0 10*3/uL Normal 0-5 [facility] Comment on above: Performed By: #### L 501.15056, L506.0400, L501.3620, L500.4050, L100.0100, L501.9520 #### [facility] [address] [place], [address] Platelet mean volume (Bld) [Entitic vol] 9.9 fL Normal 6.2-12.0 [facility] Comment on above: Performed By: #### L 501.60397, L506.0400, L501.3620, L500.4050, L100.0100, L501.9520 #### [facility] [address] [place], [address] Platelets (Bld) [#/Vol] 322 10*3/uL Normal 150-450 [facility] Comment on above: Performed By: #### L 501.21934, L506.0400, L501.3620, L500.4050, L100.0100, L501.9520 #### [facility] [address] [place], [address] RBC (Bld) [#/Vol] 4.53 10*6/uL Normal 4.2-5.4 [facility] Comment on above: Performed By: #### L 501.14413, L506.0400, L501.3620, L500.4050, L100.0100, L501.9520 #### [facility] [address] [place], [address] RDW SD 47.0 fl High 35.1-43.9 [facility] Comment on above: Performed By: #### L 501.93771, L506.0400, L501.3620, L500.4050, L100.0100, L501.9520 #### [facility] [address] [place], [address] WBC (Bld) [#/Vol] 6.2 10*3/uL Normal 4.4-11.0 [facility] Comment on above: Performed By: #### L 501.39839, L506.0400, L501.3620, L500.4050, L100.0100, L501.9520 #### [facility] [address] [place], [address] CPK Total, Creatine Kinaseon 04-22-2024 CPK TOTAL 36 U/L Normal 24-195 [facility] Comment on above: Order Comment: DR REHAN NUÑEZ GETS RESULTS FOR CMP,CBCD,CPK AND GETSRESULTS FOR TSH,T4F,TF3 Performed By: #### L 3100.7000, L500.4050, L501.3620, L100.0100 #### [facility] [address] [place], [address] Carbon dioxide, total [Moles /volume] in Central venous bloodOrdered By: Catia Christian on 04-22-2024 CO2 [Moles/Vol] 19.9 mmol/L Low 21.0-32.0 [facility] Chloride assayOrdered By: Rosalee Christian on 04-22-2024 Chloride [Moles/Vol] 103 mmol/L 98-108 [facility] Comprehensive Metabolic Prof ilon 04-22-2024 Albumin [Mass/Vol] 4.0 g/dL Normal 3.4-4.8 [facility] Comment on above: Order Comment: DR REHAN NUÑEZ GETS RESULTS FOR CMP,CBCD,CPK AND GETS RESULTS FOR TSH,T4F,TF3 Performed By: #### L 501.69871, L506.0400, L501.3620, L500.4050, L100.0100, L501.9520 #### [facility] [address] [place], [address] Albumin/Globulin [Mass ratio] 1.0 {ratio} Normal 0.9-2.4 [facility] Comment on above: Order Comment: DR REHAN NUÑEZ GETS RESULTS FOR CMP,CBCD,CPK AND GETS RESULTS FOR TSH,T4F,TF3 Performed By: #### L 501.24481, L506.0400, L501.3620, L500.4050, L100.0100, L501.9520 #### [facility] [address] [place], [address] ALK PHOS 81 U/L Normal 35-104 [facility] Comment on above: Order Comment: DR REHAN NUÑEZ GETS RESULTS FOR CMP,CBCD,CPK AND GETS RESULTS FOR TSH,T4F,TF3 Performed By: #### L 501.77970, L506.0400, L501.3620, L500.4050, L100.0100, L501.9520 #### [facility] [address] [place], [address] ALT [Catalytic activity/Vol] 36 U/L High <=34 [facility] Comment on above: Order Comment: DR REHAN NUÑEZ GETS RESULTS FOR CMP,CBCD,CPK AND GETS RESULTS FOR TSH,T4F,TF3 Performed By: #### L 501.69954, L506.0400, L501.3620, L500.4050, L100.0100, L501.9520 #### [facility] [address] [place], [address] AST [Catalytic activity/Vol] 30 U/L Normal <=31 [facility] Comment on above: Order Comment: DR REHAN NUÑEZ GETS RESULTS FOR CMP,CBCD,CPK AND GETS RESULTS FOR TSH,T4F,TF3 Performed By: #### L 501.51743, L506.0400, L501.3620, L500.4050, L100.0100, L501.9520 #### [facility] [address] [place], [address] Bilirubin [Mass/Vol] 0.52 mg/dL Normal 0.00-1.30 [facility] Comment on above: Order Comment: DR REHAN NUÑEZ GETS RESULTS FOR CMP,CBCD,CPK AND GETS RESULTS FOR TSH,T4F,TF3 Performed By: #### L 501.71868, L506.0400, L501.3620, L500.4050, L100.0100, L501.9520 #### [facility] [address] [place], [address] BUN/CRE 14.5 RATIO Normal 10-20 [facility] Comment on above: Order Comment: DR REHAN NUÑEZ GETS RESULTS FOR CMP,CBCD,CPK AND GETS RESULTS FOR TSH,T4F,TF3 Performed By: #### L 501.28370, L506.0400, L501.3620, L500.4050, L100.0100, L501.9520 #### [facility] [address] [place], [address] Calcium [Mass/Vol] 9.3 mg/dL Normal 7.6-11.0 [facility] Comment on above: Order Comment: DR REHAN NUÑEZ GETS RESULTS FOR CMP,CBCD,CPK AND GETS RESULTS FOR TSH,T4F,TF3 Performed By: #### L 501.83872, L506.0400, L501.3620, L500.4050, L100.0100, L501.9520 #### [facility] [address] [place], [address] Chloride [Moles/Vol] 103 mmol/L Normal 98-108 [facility] Comment on above: Order Comment: DR REHAN NUÑEZ GETS RESULTS FOR CMP,CBCD,CPK AND GETS RESULTS FOR TSH,T4F,TF3 Performed By: #### L 501.38919, L506.0400, L501.3620, L500.4050, L100.0100, L501.9520 #### [facility] [address] [place], [address] CO2 [Moles/Vol] 19.9 mmol/L Low 21.0-32.0 [facility] Comment on above: Order Comment: DR REHAN NUÑEZ GETS RESULTS FOR CMP,CBCD,CPK AND GETS RESULTS FOR TSH,T4F,TF3 Performed By: #### L 501.40358, L506.0400, L501.3620, L500.4050, L100.0100, L501.9520 #### [facility] [address] [place], [address] Creatinine [Mass/Vol] 0.62 mg/dL Low 0.70-1.20 [facility] Comment on above: Order Comment: DR REHAN NUÑEZ GETS RESULTS FOR CMP,CBCD,CPK AND GETS RESULTS FOR TSH,T4F,TF3 Performed By: #### L 501.87444, L506.0400, L501.3620, L500.4050, L100.0100, L501.9520 #### [facility] [address] [place], [address] GAP 13 Normal 5-15 [facility] Comment on above: Order Comment: DR REHAN NUÑEZ GETS RESULTS FOR CMP,CBCD,CPK AND GETS RESULTS FOR TSH,T4F,TF3 Performed By: #### L 501.49497, L506.0400, L501.3620, L500.4050, L100.0100, L501.9520 #### [facility] [address] [place], [address] GFR/1.73 sq M.predicted among non-blacks MDRD (S/P/Bld) [Vol rate/Area] 86 mL/min/{1.73_m2} Normal >60 [facility] Comment on above: Order Comment: DR REHAN NUÑEZ GETS RESULTS FOR CMP,CBCD,CPK AND GETS RESULTS FOR TSH,T4F,TF3 Result Comment: mL/m in/1.73m2 CKD-EPI Creatinine Equation (2020) Performed By: #### L 501.52429, L506.0400, L501.3620, L500.4050, L100.0100, L501.9520 #### [facility] [address] [place], [address] Globulin (S) [Mass/Vol] 4.1 g/dL Normal 2.2-4.2 [facility] Comment on above: Order Comment: DR REHAN NUÑEZ GETS RESULTS FOR CMP,CBCD,CPK AND GETS RESULTS FOR TSH,T4F,TF3 Performed By: #### L 501.99666, L506.0400, L501.3620, L500.4050, L100.0100, L501.9520 #### [facility] [address] [place], [address] Glucose [Mass/Vol] 213 mg/dL High 70-99 [facility] Comment on above: Order Comment: DR REHAN NUÑEZ GETS RESULTS FOR CMP,CBCD,CPK AND GETS RESULTS FOR TSH,T4F,TF3 Performed By: #### L 501.55899, L506.0400, L501.3620, L500.4050, L100.0100, L501.9520 #### [facility] [address] [place], [address] Potassium [Moles/Vol] 3.6 mmol/L Normal 3.3-5.1 [facility] Comment on above: Order Comment: DR REHAN NUÑEZ GETS RESULTS FOR CMP,CBCD,CPK AND GETS RESULTS FOR TSH,T4F,TF3 Performed By: #### L 501.91492, L506.0400, L501.3620, L500.4050, L100.0100, L501.9520 #### [facility] [address] [place], [address] Sodium [Moles/Vol] 136 mmol/L Normal 133-145 [facility] Comment on above: Order Comment: DR REHAN NUÑEZ GETS RESULTS FOR CMP,CBCD,CPK AND GETS RESULTS FOR TSH,T4F,TF3 Performed By: #### L 501.66738, L506.0400, L501.3620, L500.4050, L100.0100, L501.9520 #### [facility] [address] [place], [address] T PROT 8.1 g/dL Normal 5.9-8.4 [facility] Comment on above: Order Comment: DR REHAN NUÑEZ GETS RESULTS FOR CMP,CBCD,CPK AND GETS RESULTS FOR TSH,T4F,TF3 Performed By: #### L 501.28210, L506.0400, L501.3620, L500.4050, L100.0100, L501.9520 #### [facility] [address] [place], [address] Urea nitrogen [Mass/Vol] 9 mg/dL Normal 4-19 [facility] Comment on above: Order Comment: DR REHAN NUÑEZ GETS RESULTS FOR CMP,CBCD,CPK AND GETS RESULTS FOR TSH,T4F,TF3 Performed By: #### L 501.34483, L506.0400, L501.3620, L500.4050, L100.0100, L501.9520 #### [facility] [address] [place], [address] Eosinophil percentageOrdered By: Catia Christian on 04-22-2024 Eosinophils/100 WBC (Bld) 0.8 % 0-5 [facility] Erythrocyte distribution wid th ratioOrdered By: Catia Christian on 04-22-2024 Erythrocyte distribution width (RBC) [Ratio] 14.4 % 11.6-14.6 [facility] Erythrocyte distribution wid th standard deviationOrdered By: Catia Christian on 04-22-2024 Erythrocyte distribution width (RBC) [Entitic vol] 47.0 fL High 35.1-43.9 [facility] Erythrocyte distribution width (RBC) [Ratio] 47.0 fl High 35.1-43.9 [facility] Free T3on 04-22-2024 Free T3 [Mass/Vol] 3.7 pg/mL Normal 2.18-3.98 [facility] Comment on above: Order Comment: DR REHAN NUÑEZ GETS RESULTS FOR CMP,CBCD,CPK AND GETS RESULTS FOR TSH,T4F,TF3 Performed By: #### L 501.27893, L506.0400, L501.3620, L500.4050, L100.0100, L501.9520 #### [facility] [place], [address] Free [id number] By: Catia lowery on 04-22-2024 Free T3 [Mass/Vol] 3.7 pg/mL 2.18-3.98 [facility] Free Triiodothyronine (T3) pg/dL 3.7 pg/mL 2.18-3.98 [facility] GFR/1.73 sq M.predicted camila g non-blacks MDRD (S/P/Bld) [Vol rate/Area]Ordered By: Catia Christian on 04-22-2024 Estimated GFR (MDRD) Non-Af Amer 86 >60 [facility] Comment on above: mL/min/1.73m2 CKD-EP I Creatinine Equation (2020) Glomerular filtration rate ( GFR) estimation/1.73 sq m using serum, plasma, or whole bOrdered By: Catia Christian on 04-22-2024 GFR/1.73 sq M.predicted among non-blacks MDRD (S/P/Bld) [Vol rate/Area] 86 mL/min/{1.73_m2} >60 [facility] Comment on above: mL/min/1.73m2 CKD-EP I Creatinine Equation (2020) Hematocrit Auto (Bld) [Volum e fraction]Ordered By: Catia Christian on 04-22-2024 Hematocrit (Bld) [Volume fraction] 41.3 % 37-47 [facility] Hemoglobin measurementOrdere d By: Catia Christian on 04-22-2024 Hemoglobin (Bld) [Mass/Vol] 14.4 g/dL 12.0-15.0 [facility] Immature granulocytes/100 WB C Auto (Bld)Ordered By: Catia Christian on 04-22-2024 Immature granulocytes/100 WBC (Bld) 0.500 % 0.0-0.9 [facility] Comment on above: IG% - Immature Granu locytes (promyelocytes, myelocytes and metamyelocytes) > 1% indicates that a LEFT SHIFT is Present. Laboratory - Chemistry and C hemistry - challengeOrdered By: Catia Christian on 04-22-2024 AST [Catalytic activity/Vol] 30 U/L <32 [facility] Lymphocytes Auto (Unsp spec) [#/Vol]Ordered By: Catia Christian on 04-22-2024 Lymphocytes (Bld) [#/Vol] 1.19 10*3/uL 0.83-4.51 [facility] Lymphocytes/100 WBC Auto (Un sp spec)Ordered By: Catia Christian on 04-22-2024 Lymphocytes/100 WBC (Bld) 19.1 % 19-41 [facility] MCV (mean corpuscular volume ) determinationOrdered By: Catia Christian on 04-22-2024 MCV (RBC) [Entitic vol] 91.2 fL 81-99 [facility] Mean corpuscular hemoglobin (MCH) determinationOrdered By: Catia Christian on 04-22-2024 MCH (RBC) [Entitic mass] 31.8 pg 27.0-32.0 [facility] Mean corpuscular hemoglobin concentration (MCHC) determinationOrdered By: Catia Christian on 04-22-2024 MCHC (RBC) [Mass/Vol] 34.9 g/dL 32-36 [facility] Mean platelet volume determi nationOrdered By: Catia Christian on 04-22-2024 Platelet mean volume (Bld) [Entitic vol] 9.9 fL 6.2-12.0 [facility] Monocyte percentageOrdered B y: Catia Christian on 04-22-2024 Monocytes/100 WBC (Bld) 11.4 % High 0-10 [facility] Neutrophil percentageOrdered By: Catia Christian on 04-22-2024 Neutrophils/100 WBC (Bld) 67.1 % 47-70 [facility] Nucleated red blood cell per centageOrdered By: Catia Christian on 04-22-2024 Nucleated RBC/100 WBC (Bld) [Ratio] 0 % 0-5 [facility] Platelet countOrdered By: Rosalee Christian on 04-22-2024 Platelets (Bld) [#/Vol] 322 10*3/uL 150-450 [facility] Potassium (Unsp spec) [Mass/ Vol]Ordered By: Catia Christian on 04-22-2024 Potassium [Moles/Vol] 3.6 mmol/L 3.3-5.1 [facility] Potassium measurement (mass/ volume)Ordered By: Catia Christian on 04-22-2024 Potassium (Unsp spec) [Mass/Vol] 3.6 mmol/L 3.3-5.1 [facility] RBC Auto (Bld) [#/Vol]Ordere d By: Catia Christian on 04-22-2024 RBC (Bld) [#/Vol] 4.53 10*6/uL 4.2-5.4 [facility] Serum creatinine measurement (mass/volume)Ordered By: Catia Christian on 04-22-2024 Creatinine [Mass/Vol] 0.62 mg/dL Low 0.70-1.20 [facility] Serum globulin measurementOr dered By: Catia Christian on 04-22-2024 Globulin (S) [Mass/Vol] 4.1 g/dL 2.2-4.2 [facility] Serum glucose measurement (m ass/volume)Ordered By: Catia Christian on 04-22-2024 Glucose [Mass/Vol] 213 mg/dL High 70-99 [facility] Serum or plasma alanine myers otransferase (ALT) measurementOrdered By: Catia Christian on 04-22-2024 ALT [Catalytic activity/Vol] 36 U/L High <35 [facility] Serum or plasma albumin nancy urement (mass/volume)Ordered By: Catia Christian on 04-22-2024 Albumin [Mass/Vol] 4.0 g/dL 3.4-4.8 [facility] Serum or plasma albumin/glob ulin mass ratioOrdered By: Catia Christian on 04-22-2024 Albumin/Globulin [Mass ratio] 1.0 {ratio} 0.9-2.4 [facility] Serum or plasma alkaline lindsey sphatase measurementOrdered By: Catia Christian on 04-22-2024 ALP [Catalytic activity/Vol] 81 U/L 35-104 [facility] Serum or plasma calcium nacny urement (mass/volume)Ordered By: Catia Christian on 04-22-2024 Calcium [Mass/Vol] 9.3 mg/dL 7.6-11.0 [facility] Serum or plasma creatine kin ase activityOrdered By: Catia Christian on 04-22-2024 CK [Catalytic activity/Vol] 36 U/L 24-195 [facility] Serum or plasma urea nitroge n measurement (mass/volume)Ordered By: Catia Christian on 04-22-2024 Urea nitrogen [Mass/Vol] 9 mg/dL 4-19 [facility] Sodium levelOrdered By: Catia Christian on 04-22-2024 Sodium [Moles/Vol] 136 mmol/L 133-145 [facility] T4 Free Directon 04-22-2024 T4 FREE DIRECT 1.70 ng/dL High 0.76-1.46 [facility] Comment on above: Order Comment: DR REHAN NUÑEZ GETS RESULTS FOR CMP,CBCD,CPK AND GETSRESULTS FOR TSH,T4F,TF3 Performed By: #### L 3100.7000, L500.4050, L501.3620, L100.0100 #### [facility] [address] [place], [place], [id number] T4 freeOrdered By: Catia Delacruz s on 04-22-2024 Free T4 [Mass/Vol] 1.70 ng/dL High 0.76-1.46 [facility] TSH DL <= 0.005 mIU/L QnOrde red By: Catia Christian on 04-22-2024 Thyroid Stimulating Hormone (TSH) 0.162 uIU/mL Low 0.300-4.200 [facility] TSH Qn 0.162 uIU/mL Low 0.300-4.200 [facility] Thyroid Stim Hormone (TSH)on 04-22-2024 TSH 0.162 uIU/mL Low 0.300-4.200 [facility] Comment on above: Order Comment: DR REHAN NUÑEZ GETS RESULTS FOR CMP,CBCD,CPK AND GETSRESULTS FOR TSH,T4F,TF3 Performed By: #### L 3100.7000, L500.4050, L501.3620, L100.0100 #### [facility] [address] [place], [address] Total proteinOrdered By: Antonette Christian on 04-22-2024 Protein [Mass/Vol] 8.1 g/dL 5.9-8.4 [facility] White blood cell (WBC) count Ordered By: Catia Christian on 04-22-2024 WBC (Bld) [#/Vol] 6.2 10*3/uL 4.4-11.0 [facility] Aldolaseon 01-23-2024 ALDOLASE 4.8 U/L Normal 3.3-10.3 [facility] Comment on above: Result Comment: Perf ormed at: - [facility] [address] [place], [place] [id number] Manager [employer] D[employer]: Harley Griffith PhD, Phone: [phone] Performed By: #### L 3100.7000, L500.4050, L501.3620, L100.0100 #### [facility] [address] [place], [address] Absolute neutrophil countOrd ered By: Natalie Rodriguez on 01-22-2024 Neutrophils (Bld) [#/Vol] 6.5 10*3/uL 2.0-7.7 [facility] Albumin to globulin ratioOrd ered By: Natalie Rodriguez on 01-22-2024 Albumin/Globulin [Mass ratio] 0.9 {ratio} 0.9-2.4 [facility] Aldolase [Catalytic activity /Vol]Ordered By: Natalie Rodrigeuz on 01-22-2024 Aldolase 4.8 U/L 3.3-10.3 [facility] Comment on above: Performed at: [facility] [id number] [place] [id number] Director: Harley Griffith PhD, Phone: [phone] Basophil percentageOrdered B y: Natalie Rodriguez on 01-22-2024 Basophils/100 WBC (Bld) 0.8 % 0-1 [facility] Bilirubin, totalOrdered By: Natalie Rodriguez on 01-22-2024 Bilirubin [Mass/Vol] 0.50 mg/dL 0.20-1.00 [facility] Comment on above: For patients on eltr ombopag therapy, use of Dimension [place] TBIL is not recommended. Blood urea nitrogen (BUN)/cr eatinine ratioOrdered By: Natalie Rodriguez on 01-22-2024 Urea nitrogen/Creatinine [Mass ratio] 18.8 mg/mg - [facility] CBC W/Diff, Automatedon 01-05 Absolute Lymph 1.91 X10 3/uL Normal 0.83-4.51 [facility] Comment on above: Performed By: #### L 3100.7000, L500.4050, L501.3620, L100.0100 #### [facility] [address] [place], [address] Absolute Neut 6.5 X10 3/uL Normal 2.0-7.7 [facility] Comment on above: Performed By: #### L 3100.7000, L500.4050, L501.3620, L100.0100 #### [facility] [address] [place], [address] Basophils/100 WBC (Bld) 0.8 % Normal 0-1 [facility] Comment on above: Performed By: #### L 3100.7000, L500.4050, L501.3620, L100.0100 #### [facility] [address] [place], [address] Eosinophils/100 WBC (Bld) 0.7 % Normal 0-5 [facility] Comment on above: Performed By: #### L 3100.7000, L500.4050, L501.3620, L100.0100 #### [facility] [address] [place], [address] Erythrocyte distribution width (RBC) [Ratio] 14.2 % Normal 11.6-14.6 [facility] Comment on above: Performed By: #### L 3100.7000, L500.4050, L501.3620, L100.0100 #### [facility] [address] [place], [address] Hematocrit (Bld) [Volume fraction] 45.7 % Normal 37-47 [facility] Comment on above: Performed By: #### L 3100.7000, L500.4050, L501.3620, L100.0100 #### [facility] [address] [place], [address] Hemoglobin (Bld) [Mass/Vol] 15.5 g/dL High 12.0-15.0 [facility] Comment on above: Performed By: #### L 3100.7000, L500.4050, L501.3620, L100.0100 #### [facility] [address] [place], [address] IG% 0.400 Normal 0.0-0.9 [facility] Comment on above: Result Comment: IG% - Immature Granulocytes (promyelocytes, myelocytes and metamyelocytes) > 1% indicates that a LEFT SHIFT is Present. Performed By: #### L 3100.7000, L500.4050, L501.3620, L100.0100 #### [facility] [address] [place], [address] Lymphocytes/100 WBC (Bld) 20.2 % Normal 19-41 [facility] Comment on above: Performed By: #### L 3100.7000, L500.4050, L501.3620, L100.0100 #### [facility] [address] [place], [address] MCH (RBC) [Entitic mass] 31.4 pg Normal 27.0-32.0 [facility] Comment on above: Performed By: #### L 3100.7000, L500.4050, L501.3620, L100.0100 #### [facility] [address] [place], [address] MCHC (RBC) [Mass/Vol] 33.9 g/dL Normal 32-36 [facility] Comment on above: Performed By: #### L 3100.7000, L500.4050, L501.3620, L100.0100 #### [facility] [address] [place], [address] MCV (RBC) [Entitic vol] 92.7 fL Normal 81-99 [facility] Comment on above: Performed By: #### L 3100.7000, L500.4050, L501.3620, L100.0100 #### [facility] [address] [place], [address] Monocytes/100 WBC (Bld) 9.7 % Normal 0-10 [facility] Comment on above: Performed By: #### L 3100.7000, L500.4050, L501.3620, L100.0100 #### [facility] [address] [place], [address] Neutrophils/100 WBC (Bld) 68.2 % Normal 47-70 [facility] Comment on above: Performed By: #### L 3100.7000, L500.4050, L501.3620, L100.0100 #### [facility] [address] [place], [address] Nucleated RBC (Bld) [#/Vol] 0 10*3/uL Normal 0-5 [facility] Comment on above: Performed By: #### L 3100.7000, L500.4050, L501.3620, L100.0100 #### [facility] [address] [place], [address] Platelet mean volume (Bld) [Entitic vol] 9.3 fL Normal 6.2-12.0 [facility] Comment on above: Performed By: #### L 3100.7000, L500.4050, L501.3620, L100.0100 #### [facility] [address] [place], [address] Platelets (Bld) [#/Vol] 310 10*3/uL Normal 150-450 [facility] Comment on above: Performed By: #### L 3100.7000, L500.4050, L501.3620, L100.0100 #### [facility] [address] [place], [address] RBC (Bld) [#/Vol] 4.93 10*6/uL Normal 4.2-5.4 [facility] Comment on above: Performed By: #### L 3100.7000, L500.4050, L501.3620, L100.0100 #### [facility] [address] [place], [address] RDW SD 47.3 fl High 35.1-43.9 [facility] Comment on above: Performed By: #### L 3100.7000, L500.4050, L501.3620, L100.0100 #### [facility] [address] [place], [address] WBC (Bld) [#/Vol] 9.5 10*3/uL Normal 4.4-11.0 [facility] Comment on above: Performed By: #### L 3100.7000, L500.4050, L501.3620, L100.0100 #### [facility] [address] [place], [address] CPK Total, Creatine Kinaseon 01-22-2024 CPK TOTAL 41 U/L Normal 26-192 [facility] Comment on above: Performed By: #### L 3100.7000, L500.4050, L501.3620, L100.0100 #### [facility] [address] [place], [address] Carbon dioxide measurementOr dered By: Natalie Rodriguez on 01-22-2024 CO2 [Moles/Vol] 24.0 mmol/L 21.0-32.0 [facility] Chloride measurementOrdered By: Natalie Rodriguez on 01-22-2024 Chloride [Moles/Vol] 105 mmol/L 98-107 [facility] Comprehensive Metabolic Prof ilon 01-22-2024 Albumin [Mass/Vol] 3.9 g/dL Normal 3.2-5.0 [facility] Comment on above: Performed By: #### L 3100.7000, L500.4050, L501.3620, L100.0100 #### [facility] [address] [place], [address] Albumin/Globulin [Mass ratio] 0.9 {ratio} Normal 0.9-2.4 [facility] Comment on above: Performed By: #### L 3100.7000, L500.4050, L501.3620, L100.0100 #### [facility] [address] [place], [address] ALK P 68 U/L Normal 45-117 [facility] Comment on above: Performed By: #### L 3100.7000, L500.4050, L501.3620, L100.0100 #### [facility] [address] [place], [address] ALT [Catalytic activity/Vol] 47 U/L Normal 13-56 [facility] Comment on above: Performed By: #### L 3100.7000, L500.4050, L501.3620, L100.0100 #### [facility] [address] [place], [address] AST [Catalytic activity/Vol] 21 U/L Normal 15-37 [facility] Comment on above: Performed By: #### L 3100.7000, L500.4050, L501.3620, L100.0100 #### [facility] [address] [place], [address] Bilirubin [Mass/Vol] 0.50 mg/dL Normal 0.20-1.00 [facility] Comment on above: Result Comment: For patients on eltrombopag therapy, use of Dimension [place] TBIL is not recommended. Performed By: #### L 3100.7000, L500.4050, L501.3620, L100.0100 #### [facility] [address] [place], [address] BUN/CRE 18.8 RATIO Normal 10-20 [facility] Comment on above: Performed By: #### L 3100.7000, L500.4050, L501.3620, L100.0100 #### [facility] [address] [place], [address] CA,Total 9.9 mg/dL Normal 8.5-10.1 [facility] Comment on above: Performed By: #### L 3100.7000, L500.4050, L501.3620, L100.0100 #### [facility] [address] [place], [address] Chloride [Moles/Vol] 105 mmol/L Normal 98-107 [facility] Comment on above: Performed By: #### L 3100.7000, L500.4050, L501.3620, L100.0100 #### [facility] [address] [place], [address] CO2 [Moles/Vol] 24.0 mmol/L Normal 21.0-32.0 [facility] Comment on above: Performed By: #### L 3100.7000, L500.4050, L501.3620, L100.0100 #### [facility] [address] [place], [address] Creatinine [Mass/Vol] 0.64 mg/dL Normal 0.55-1.02 [facility] Comment on above: Result Comment: The validity of the calculated GFR GFRAA in patients over 70 years has not been determined. Clinical correlation is essential. Performed By: #### L 3100.7000, L500.4050, L501.3620, L100.0100 #### [facility] [address] [place], [address] EST GFR - AA 113 mL/min Normal >60 [facility] Comment on above: Result Comment: Afri can [place] GFR Calc Performed By: #### L 3100.7000, L500.4050, L501.3620, L100.0100 #### [facility] [address] [place], [address] GAP 7 Normal 5-15 [facility] Comment on above: Performed By: #### L 3100.7000, L500.4050, L501.3620, L100.0100 #### [facility] [address] [place], [address] GFR/1.73 sq M.predicted among non-blacks MDRD (S/P/Bld) [Vol rate/Area] 93 mL/min/{1.73_m2} Normal >60 [facility] Comment on above: Result Comment: Non- GFR Calc Performed By: #### L 3100.7000, L500.4050, L501.3620, L100.0100 #### [facility] [address] [place], [address] Globulin (S) [Mass/Vol] 4.2 g/dL Normal 2.2-4.2 [facility] Comment on above: Performed By: #### L 3100.7000, L500.4050, L501.3620, L100.0100 #### [facility] [address] [place], [address] Glucose [Mass/Vol] 112 mg/dL High 74-106 [facility] Comment on above: Result Comment: Fast ing Glucose result from 100 to 125 mg/dL suggests IMPAIRED HOMEOSTASIS per A.D.A. criteria. Performed By: #### L 3100.7000, L500.4050, L501.3620, L100.0100 #### [facility] [address] [place], [address] Potassium [Moles/Vol] 3.6 mmol/L Normal 3.5-5.1 [facility] Comment on above: Performed By: #### L 3100.7000, L500.4050, L501.3620, L100.0100 #### [facility] [address] [place], [address] Sodium [Moles/Vol] 136 mmol/L Normal 136-145 [facility] Comment on above: Performed By: #### L 3100.7000, L500.4050, L501.3620, L100.0100 #### [facility] [address] [place], [address] T PROT 8.1 g/dL Normal 6.4-8.2 [facility] Comment on above: Performed By: #### L 3100.7000, L500.4050, L501.3620, L100.0100 #### [facility] [address] [place], [address] Urea nitrogen [Mass/Vol] 12 mg/dL Normal 7-18 [facility] Comment on above: Performed By: #### L 3100.7000, L500.4050, L501.3620, L100.0100 #### [facility] [address] [place], [address] Eosinophil percentageOrdered By: Natalie Rodriguez on 01-22-2024 Eosinophils/100 WBC (Bld) 0.7 % 0-5 [facility] Erythrocyte distribution wid th ratioOrdered By: Natalie Rodriguez on 01-22-2024 Erythrocyte distribution width (RBC) [Ratio] 14.2 % 11.6-14.6 [facility] Erythrocyte distribution wid th standard deviationOrdered By: Natalie Rodriguez on 01-22-2024 Erythrocyte distribution width (RBC) [Entitic vol] 47.3 fL High 35.1-43.9 [facility] Estimated glomerular filtrat ion rate (GFR) AmericanOrdered By: Natalie Rodriguez on 01-22-2024 Estimated GFR (MDRD) Amer 113 mL/min >60 [facility] Comment on above: GFR Calc Glomerular filtration rate ( GFR) estimationOrdered By: Natalie Rodriguez on 01-22-2024 Estimated GFR (MDRD) Non-Af Amer 93 mL/min >60 [facility] Comment on above: Non- GFR Calc Glucose measurementOrdered B y: Natalie Rodriguez on 01-22-2024 Glucose [Mass/Vol] 112 mg/dL High 74-106 [facility] Comment on above: Fasting Glucose resu lt from 100 to 125 mg/dL suggests IMPAIRED HOMEOSTASIS per A.D.A. criteria. Hematocrit Auto (Bld) [Volum e fraction]Ordered By: Natalie Rodriguez on 01-22-2024 Hematocrit (Bld) [Volume fraction] 45.7 % 37-47 [facility] Hemoglobin measurementOrdere d By: Natalie Rodriguez on 01-22-2024 Hemoglobin (Bld) [Mass/Vol] 15.5 g/dL High 12.0-15.0 [facility] Immature granulocytes/100 WB C Auto (Bld)Ordered By: Natalie Rodriguez on 01-22-2024 Immature granulocytes/100 WBC (Bld) 0.400 % 0.0-0.9 [facility] Comment on above: IG% - Immature Granu locytes (promyelocytes, myelocytes and metamyelocytes) > 1% indicates that a LEFT SHIFT is Present. Laboratory - Chemistry and C hemistry - challengeOrdered By: Natalie Rodriguez on 01-22-2024 AST [Catalytic activity/Vol] 21 U/L 15-37 [facility] Lymphocytes Auto (Unsp spec) [#/Vol]Ordered By: Natalie Rodriguez on 01-22-2024 Lymphocytes (Bld) [#/Vol] 1.91 10*3/uL 0.83-4.51 [facility] Lymphocytes/100 WBC Auto (Un sp spec)Ordered By: Natalie Rodriguez on 01-22-2024 Lymphocytes/100 WBC (Bld) 20.2 % 19-41 [facility] MCV (mean corpuscular volume ) determinationOrdered By: Natalie Rodriguez on 01-22-2024 MCV (RBC) [Entitic vol] 92.7 fL 81-99 [facility] Mean corpuscular hemoglobin (MCH) determinationOrdered By: Natalie Rodriguez on 01-22-2024 MCH (RBC) [Entitic mass] 31.4 pg 27.0-32.0 [facility] Mean corpuscular hemoglobin concentration (MCHC) determinationOrdered By: Natalie Rodriguez on 01-22-2024 MCHC (RBC) [Mass/Vol] 33.9 g/dL 32-36 [facility] Mean platelet volume determi nationOrdered By: Natalie Rodriguez on 01-22-2024 Platelet mean volume (Bld) [Entitic vol] 9.3 fL 6.2-12.0 [facility] Monocyte percentageOrdered B y: Natalie Rodriguez on 01-22-2024 Monocytes/100 WBC (Bld) 9.7 % 0-10 [facility] Neutrophil percentageOrdered By: Natalie Rodriguez on 01-22-2024 Neutrophils/100 WBC (Bld) 68.2 % 47-70 [facility] Nucleated red blood cell per centageOrdered By: Natalie Rodriguez on 01-22-2024 Nucleated RBC/100 WBC (Bld) [Ratio] 0 % 0-5 [facility] Platelet countOrdered By: Wilfrido Rodriguez on 01-22-2024 Platelets (Bld) [#/Vol] 310 10*3/uL 150-450 [facility] Potassium measurementOrdered By: Natalie Rodriguez on 01-22-2024 Potassium [Moles/Vol] 3.6 mmol/L 3.5-5.1 [facility] RBC Auto (Bld) [#/Vol]Ordere d By: Natalie Rodriguez on 01-22-2024 RBC (Bld) [#/Vol] 4.93 10*6/uL 4.2-5.4 [facility] Serum anion gap measurementO rdered By: Natalie Rodriguez on 01-22-2024 Anion gap [Moles/Vol] 7 mmol/L 5-15 [facility] Serum globulin measurementOr dered By: Natalie Rodriguez on 01-22-2024 Globulin (S) [Mass/Vol] 4.2 g/dL 2.2-4.2 [facility] Serum or plasma alanine myers otransferase (ALT) measurementOrdered By: Natalie Rodriguez on 01-22-2024 ALT [Catalytic activity/Vol] 47 U/L 13-56 [facility] Serum or plasma albumin nancy urement (mass/volume)Ordered By: Natalie Rodriguez on 01-22-2024 Albumin [Mass/Vol] 3.9 g/dL 3.2-5.0 [facility] Serum or plasma alkaline lindsey sphatase measurementOrdered By: Natalie Rodriguez on 01-22-2024 ALP [Catalytic activity/Vol] 68 U/L 45-117 [facility] Serum or plasma calcium nancy urement (mass/volume)Ordered By: Natalie Rodriguez on 01-22-2024 Calcium [Mass/Vol] 9.9 mg/dL 8.5-10.1 [facility] Serum or plasma creatinine m easurement (mass/volume)Ordered By: Natalie Rodriguez on 01-22-2024 Creatinine [Mass/Vol] 0.64 mg/dL 0.55-1.02 [facility] Comment on above: The validity of the calculated GFR & GFRAA in patients over 70 years has not been determined. Clinical correlation is essential. Serum or plasma urea nitroge n measurement (mass/volume)Ordered By: Natalie Rodriguez on 01-22-2024 Urea nitrogen [Mass/Vol] 12 mg/dL 7-18 [facility] Sodium levelOrdered By: Shawna Rodriguez on 01-22-2024 Sodium [Moles/Vol] 136 mmol/L 136-145 [facility] Total creatine kinase measur ementOrdered By: Natalie Rodriguez on 01-22-2024 CK [Catalytic activity/Vol] 41 U/L 26-192 [facility] Total proteinOrdered By: Layne Rodriguez on 01-22-2024 Protein [Mass/Vol] 8.1 g/dL 6.4-8.2 [facility] White blood cell (WBC) count Ordered By: Natalie Rodriguez on 01-22-2024 WBC (Bld) [#/Vol] 9.5 10*3/uL 4.4-11.0 [facility] Absolute lymphocyte countOrd ered By: Natalie Rodriguez on 05-16-2023 Lymphocytes Auto (Unsp spec) [#/Vol] 1.32 10*3/uL 0.83-4.51 [facility] Aldolase ser/plasOrdered By: Natalie Rodriguez on 05-16-2023 Aldolase [Catalytic activity/Vol] 2.8 mU/mL 3.3-10.3 [facility] Comment on above: Performed at: [address] Director: Harley Griffith PhD, Phone: [phone] Automated lymphocyte count a s percentage of total leukocytesOrdered By: Natalie Rodriguez on 05-16-2023 Lymphocytes/100 WBC Auto (Unsp spec) 22.0 % 19-41 [facility] Basophil percentageOrdered B y: Natalie Rodriguez on 05-16-2023 Basophils/100 WBC (Bld) 1.2 % 0-1 [facility] Bilirubin [Mass/Vol] 0.50 mg/dL 0.20-1.00 [facility] Comment on above: For patients on eltr ombopag therapy, use of Dimension [place] TBIL is not recommended. Chloride [Moles/Vol] 103 mmol/L 98-107 [facility] Eosinophils/100 WBC (Bld) 1.2 % 0-5 [facility] Glucose [Mass/Vol] 170 mg/dL 74-106 [facility] Comment on above: Fasting Glucose resu lt greater than or equal to 126 mg/dL suggests DIABETES MELLITUS per A.D.A. criteria. Hemoglobin (Bld) [Mass/Vol] 14.5 g/dL 12.0-15.0 [facility] Monocytes/100 WBC (Bld) 14.2 % 0-10 [facility] Neutrophils (Bld) [#/Vol] 3.7 10*3/uL 2.0-7.7 [facility] Neutrophils/100 WBC (Bld) 61.1 % 47-70 [facility] Potassium [Moles/Vol] 3.5 mmol/L 3.5-5.1 [facility] Protein [Mass/Vol] 9.0 g/dL 6.4-8.2 [facility] Sodium [Moles/Vol] 134 mmol/L 136-145 [facility] WBC (Bld) [#/Vol] 6.0 10*3/uL 4.4-11.0 [facility] Determination of erythrocyte mean corpuscular volume (MCV)Ordered By: Natalie Rodriguez on 05-16-2023 MCV (RBC) [Entitic vol] 90.3 fL 81-99 [facility] Erythrocyte distribution wid th ratioOrdered By: Natalie Rodriguez on 05-16-2023 Erythrocyte distribution width (RBC) [Ratio] 13.2 % 11.6-14.6 [facility] Erythrocyte distribution wid th standard deviationOrdered By: Natalie Rodriguez on 05-16-2023 Erythrocyte distribution width (RBC) [Entitic vol] 43.9 fL 35.1-43.9 [facility] [facility] Auto (Bld[facility] [Volum e fraction]Ordered By: Natalie Rodriguez on 05-16-2023 Hematocrit (Bld) [Volume fraction] 42.9 % 37-47 [facility] Immature granulocytes/100 WB C Auto (Bld)Ordered By: Natalie Rodriguez on 05-16-2023 Immature granulocytes/100 WBC (Bld) 0.300 % 0.0-0.9 [facility] Comment on above: IG% - Immature Granu locytes (promyelocytes, myelocytes and metamyelocytes) > 1% indicates that a LEFT SHIFT is Present. Laboratory - Chemistry and C hemistry - challengeOrdered By: Natalie Rodriguez on 05-16-2023 Albumin/Globulin [Mass ratio] 0.6 {ratio} 0.9-2.4 [facility] ALP [Catalytic activity/Vol] 76 U/L 45-117 [facility] ALT [Catalytic activity/Vol] 28 U/L 13-56 [facility] CK [Catalytic activity/Vol] 44 U/L 26-192 [facility] CO2 [Moles/Vol] 24.0 mmol/L 21.0-32.0 [facility] Globulin (S) [Mass/Vol] 5.6 g/dL 2.2-4.2 [facility] Urea nitrogen/Creatinine [Mass ratio] 13.3 mg/mg 10-20 [facility] Laboratory - Hematology and Cell countsOrdered By: Natalie Rodriguez on 05-16-2023 MCH (RBC) [Entitic mass] 30.5 pg 27.0-32.0 [facility] MCHC (RBC) [Mass/Vol] 33.8 g/dL 32-36 [facility] Nucleated RBC/100 WBC (Bld) [Ratio] 0 % 0-5 [facility] Platelet mean volume (Bld) [Entitic vol] 9.5 fL 6.2-12.0 [facility] Platelets (Bld) [#/Vol] 264 10*3/uL 150-450 [facility] No Panel InformationOrdered By: Natalie Rodriguez on 05-16-2023 Estimated GFR (MDRD) Amer 70 mL/min >60 [facility] Comment on above: GFR Calc Estimated GFR (MDRD) Non-Af Amer 57 mL/min >60 [facility] Comment on above: Non- GFR Calc RBC Auto (Bld) [#/Vol]Ordere d By: Natalie Rodriguez on 05-16-2023 RBC (Bld) [#/Vol] 4.75 10*6/uL 4.2-5.4 [facility] Serum or plasma calcium nancy urement (mass/volume)Ordered By: Natalie Rodriguez on 05-16-2023 Calcium [Mass/Vol] 8.9 mg/dL 8.5-10.1 [facility] Serum or plasma creatinine m easurement (mass/volume)Ordered By: Natalie Rodriguez on 05-16-2023 Creatinine [Mass/Vol] 0.98 mg/dL 0.55-1.02 [facility] Comment on above: The validity of the calculated GFR & GFRAA in patients over 70 years has not been determined. Clinical correlation is essential. Serum or plasma urea nitroge n measurement (mass/volume)Ordered By: Natalie Rodriguez on 05-16-2023 Urea nitrogen [Mass/Vol] 13 mg/dL 7-18 [facility] Thin prep Papanicolaou smear with manual screeningOrdered By: Natalie Rodriguez on 05-16-2023 Thin prep Papanicolaou smear with manual screening 3.4 g/dL 3.2-5.0 [facility] Thin prep Papanicolaou smear with manual screening 19 U/L 15-37 [facility] Thin prep Papanicolaou smear with manual screening 7 5-15 [facility] Absolute lymphocyte countOrd ered By: Natalie Rodriguez on 11-24-2022 Lymphocytes Auto (Unsp spec) [#/Vol] 1.73 10*3/uL 0.83-4.51 [facility] Aldolase ser/plasOrdered By: Natalie Rodriguez on 11-24-2022 Aldolase [Catalytic activity/Vol] 3.2 mU/mL 3.3-10.3 [facility] Comment on above: Performed at: [address] Director: Harley Griffith PhD, Phone: [phone] Basophil percentageOrdered B y: Natalie Rodriguez on 11-24-2022 Basophils/100 WBC (Bld) 1.3 % 0-1 [facility] Bilirubin [Mass/Vol] 0.30 mg/dL 0.20-1.00 [facility] Comment on above: For patients on eltr ombopag therapy, use of Dimension [place] TBIL is not recommended. Chloride [Moles/Vol] 107 mmol/L 98-107 [facility] Eosinophils/100 WBC (Bld) 1.0 % 0-5 [facility] Glucose [Mass/Vol] 135 mg/dL 74-106 [facility] Comment on above: Fasting Glucose resu lt greater than or equal to 126 mg/dL suggests DIABETES MELLITUS per A.D.A. criteria. Neutrophils (Bld) [#/Vol] 3.4 10*3/uL 2.0-7.7 [facility] Neutrophils/100 WBC (Bld) 55.0 % 47-70 [facility] Potassium [Moles/Vol] 3.8 mmol/L 3.5-5.1 [facility] Comment on above: Slight Hemolysis, Re sult may be falsely increased. Protein [Mass/Vol] 8.6 g/dL 6.4-8.2 [facility] Sodium [Moles/Vol] 138 mmol/L 136-145 [facility] WBC (Bld) [#/Vol] 6.2 10*3/uL 4.4-11.0 [facility] Blood erythrocytes count (nu mber/volume)Ordered By: Natalie Rodriguez on 11-24-2022 RBC (Bld) [#/Vol] 4.57 10*6/uL 4.2-5.4 [facility] Blood hemoglobin measurement (mass/volume)Ordered By: Natalie Rodriguez on 11-24-2022 Hemoglobin (Bld) [Mass/Vol] 14.4 g/dL 12.0-15.0 [facility] Blood lymphocytes/100 leukoc ytesOrdered By: Natalie Rodriguez on 11-24-2022 Lymphocytes/100 WBC (Bld) 28.1 % 19-41 [facility] Blood monocytes/100 leukocyt esOrdered By: Natalie Rodriguez on 11-24-2022 Monocytes/100 WBC (Bld) 14.3 % 0-10 [facility] Blood platelet mean volumeOr dered By: Natalie Rodriguez on 11-24-2022 Platelet mean volume (Bld) [Entitic vol] 9.8 fL 6.2-12.0 [facility] Determination of erythrocyte mean corpuscular volume (MCV)Ordered By: Natalie Rodriguez on 11-24-2022 MCV (RBC) [Entitic vol] 96.7 fL 81-99 [facility] Hematocrit Auto (Bld) [Volum e fraction]Ordered By: Natalie Rodriguez on 11-24-2022 Hematocrit (Bld) [Volume fraction] 44.2 % 37-47 [facility] Laboratory - Chemistry and C hemistry - challengeOrdered By: Natalie Rodriguez on 11-24-2022 ALP [Catalytic activity/Vol] 79 U/L 45-117 [facility] ALT [Catalytic activity/Vol] 30 U/L 13-56 [facility] CK [Catalytic activity/Vol] 51 U/L 26-192 [facility] CO2 [Moles/Vol] 23.0 mmol/L 21.0-32.0 [facility] Globulin (S) [Mass/Vol] 5.0 g/dL 2.2-4.2 [facility] Urea nitrogen/Creatinine [Mass ratio] 18.4 mg/mg 10- [facility] Laboratory - Hematology and Cell countsOrdered By: Natalie Rodriguez on 11-24-2022 Erythrocyte distribution width (RBC) [Entitic vol] 49.5 fL 35.1-43.9 [facility] Erythrocyte distribution width (RBC) [Ratio] 13.9 % 11.6-14.6 [facility] Immature granulocytes/100 WBC (Bld) 0.300 % 0.0-0.9 [facility] Comment on above: IG% - Immature Granu locytes (promyelocytes, myelocytes and metamyelocytes) > 1% indicates that a LEFT SHIFT is Present. MCH (RBC) [Entitic mass] 31.5 pg 27.0-32.0 [facility] Nucleated RBC/100 WBC (Bld) [Ratio] 0 % 0-5 [facility] MCHC Auto (RBC) [Mass/Vol]Or dered By: Natalie Rodriguez on 11-24-2022 MCHC (RBC) [Mass/Vol] 32.6 g/dL 32-36 [facility] No Panel InformationOrdered By: Natalie Rodriguez on 11-24-2022 Estimated GFR (MDRD) Amer 93 mL/min >60 [facility] Comment on above: GFR Calc Estimated GFR (MDRD) Non-Af Amer 77 mL/min >60 [facility] Comment on above: Non- GFR Calc Platelets bldOrdered By: Layne Rodriguez on 11-24-2022 Platelets (Bld) [#/Vol] 314 10*3/uL 150-450 [facility] Serum or plasma albumin nancy urement (mass/volume)Ordered By: Natalie Rodriguez on 11-24-2022 Albumin [Mass/Vol] 3.6 g/dL 3.2-5.0 [facility] Serum or plasma albumin/glob ulin mass ratioOrdered By: Natalie Rodriguez on 11-24-2022 Albumin/Globulin [Mass ratio] 0.7 {ratio} 0.9-2.4 [facility] Serum or plasma calcium nancy urement (mass/volume)Ordered By: Natalie Rodriguez on 11-24-2022 Calcium [Mass/Vol] 9.5 mg/dL 8.5-10.1 [facility] Serum or plasma creatinine m easurement (mass/volume)Ordered By: Natalie Rodriguez on 11-24-2022 Creatinine [Mass/Vol] 0.76 mg/dL 0.55-1.02 [facility] Comment on above: The validity of the calculated GFR & GFRAA in patients over 70 years has not been determined. Clinical correlation is essential. Serum or plasma urea nitroge n measurement (mass/volume)Ordered By: Natalie Rodriguez on 11-24-2022 Urea nitrogen [Mass/Vol] 14 mg/dL 7-18 [facility] Thin prep Papanicolaou smear with manual screeningOrdered By: Natalie Rodriguez on 11-24-2022 Thin prep Papanicolaou smear with manual screening 19 U/L 15-37 [facility] Comment on above: Slight Hemolysis, Re sult may be falsely increased. Thin prep Papanicolaou smear with manual screening 8 5-15 [facility] Absolute lymphocyte countOrd ered By: Natalie Rodriguez on 08-14-2022 Lymphocytes Auto (Unsp spec) [#/Vol] 2.21 10*3/uL 0.83-4.51 [facility] Aldolase ser/plasOrdered By: Natalie Rodriguez on 08-14-2022 Aldolase [Catalytic activity/Vol] 5.1 mU/mL 3.3-10.3 [facility] Comment on above: Performed at: [facility] [address] [id number] Director: Harley Griffith PhD, Phone: [phone] Basophil percentageOrdered B y: Natalie Rodriguez on 08-14-2022 Basophils/100 WBC (Bld) 0.9 % 0-1 [facility] Bilirubin [Mass/Vol] 0.40 mg/dL 0.20-1.00 [facility] Comment on above: For patients on eltr ombopag therapy, use of Dimension [place] TBIL is not recommended. Chloride [Moles/Vol] 105 mmol/L 98-107 [facility] Eosinophils/100 WBC (Bld) 0.8 % 0-5 [facility] Glucose [Mass/Vol] 101 mg/dL 74-106 [facility] Comment on above: Fasting Glucose resu lt from 100 to 125 mg/dL suggests IMPAIRED HOMEOSTASIS per A.D.A. criteria. Neutrophils (Bld) [#/Vol] 5.7 10*3/uL 2.0-7.7 [facility] Neutrophils/100 WBC (Bld) 63.4 % 47-70 [facility] Potassium [Moles/Vol] 4.1 mmol/L 3.5-5.1 [facility] Protein [Mass/Vol] 8.4 g/dL 6.4-8.2 [facility] Sodium [Moles/Vol] 136 mmol/L 136-145 [facility] WBC (Bld) [#/Vol] 9.0 10*3/uL 4.4-11.0 [facility] Blood erythrocytes count (nu mber/volume)Ordered By: Natalie Rodriguez on 08-14-2022 RBC (Bld) [#/Vol] 4.56 10*6/uL 4.2-5.4 [facility] Blood hemoglobin measurement (mass/volume)Ordered By: Natalie Rodriguez on 08-14-2022 Hemoglobin (Bld) [Mass/Vol] 14.7 g/dL 12.0-15.0 [facility] Blood lymphocytes/100 leukoc ytesOrdered By: Natalie Rodriguez on 08-14-2022 Lymphocytes/100 WBC (Bld) 24.5 % 19-41 [facility] Blood monocytes/100 leukocyt esOrdered By: Natalie Rodriguez on 08-14-2022 Monocytes/100 WBC (Bld) 9.8 % 0-10 [facility] Blood platelet mean volumeOr dered By: Natalie Rodriguez on 08-14-2022 Platelet mean volume (Bld) [Entitic vol] 9.1 fL 6.2-12.0 [facility] Determination of erythrocyte mean corpuscular volume (MCV)Ordered By: Natalie Rodriguez on 08-14-2022 MCV (RBC) [Entitic vol] 95.0 fL 81-99 [facility] Hematocrit Auto (Bld) [Volum e fraction]Ordered By: Natalie Rodriguez on 08-14-2022 Hematocrit (Bld) [Volume fraction] 43.3 % 37-47 [facility] Laboratory - Chemistry and C hemistry - challengeOrdered By: Natalieelizabeth Rodriguez on 08-14-2022 ALP [Catalytic activity/Vol] 93 U/L 45-117 [facility] ALT [Catalytic activity/Vol] 35 U/L 13-56 [facility] CK [Catalytic activity/Vol] 41 U/L 26-192 [facility] CO2 [Moles/Vol] 25.0 mmol/L 21.0-32.0 [facility] Globulin (S) [Mass/Vol] 4.7 g/dL 2.2-4.2 [facility] Urea nitrogen/Creatinine [Mass ratio] 14.2 mg/mg 10-20 [facility] Laboratory - Hematology and Cell countsOrdered By: Natalie Rodriguez on 08-14-2022 Erythrocyte distribution width (RBC) [Entitic vol] 46.9 fL 35.1-43.9 [facility] Erythrocyte distribution width (RBC) [Ratio] 13.6 % 11.6-14.6 [facility] Immature granulocytes/100 WBC (Bld) 0.600 % 0.0-0.9 [facility] Comment on above: IG% - Immature Granu locytes (promyelocytes, myelocytes and metamyelocytes) > 1% indicates that a LEFT SHIFT is Present. MCH (RBC) [Entitic mass] 32.2 pg 27.0-32.0 [facility] Nucleated RBC/100 WBC (Bld) [Ratio] 0 % 0-5 [facility] MCHC Auto (RBC) [Mass/Vol]Or dered By: Natalie Rodriguez on 08-14-2022 MCHC (RBC) [Mass/Vol] 33.9 g/dL 32-36 [facility] No Panel InformationOrdered By: Natalie Rodriguez on 08-14-2022 Estimated GFR (MDRD) Amer 91 mL/min >60 [facility] Comment on above: GFR Calc Estimated GFR (MDRD) Non-Af Amer 75 mL/min >60 [facility] Comment on above: Non- GFR Calc Platelets bldOrdered By: Layne Rodriguez on 08-14-2022 Platelets (Bld) [#/Vol] 324 10*3/uL 150-450 [facility] Serum or plasma albumin nancy urement (mass/volume)Ordered By: Natalie Rodriguez on 08-14-2022 Albumin [Mass/Vol] 3.7 g/dL 3.2-5.0 [facility] Serum or plasma albumin/glob ulin mass ratioOrdered By: Natalie Rodriguez on 08-14-2022 Albumin/Globulin [Mass ratio] 0.8 {ratio} 0.9-2.4 [facility] Serum or plasma calcium nancy urement (mass/volume)Ordered By: Natalie Rodriguez on 08-14-2022 Calcium [Mass/Vol] 10.0 mg/dL 8.5-10.1 [facility] Serum or plasma creatinine m easurement (mass/volume)Ordered By: Natalie Rodriguez on 08-14-2022 Creatinine [Mass/Vol] 0.78 mg/dL 0.55-1.02 [facility] Comment on above: The validity of the calculated GFR & GFRAA in patients over 70 years has not been determined. Clinical correlation is essential. Serum or plasma urea nitroge n measurement (mass/volume)Ordered By: Natalie Rodriguez on 08-14-2022 Urea nitrogen [Mass/Vol] 11 mg/dL 7-18 [facility] Thin prep Papanicolaou smear with manual screeningOrdered By: Natalie Rodriguez on 08-14-2022 Thin prep Papanicolaou smear with manual screening 21 U/L 15-37 [facility] Thin prep Papanicolaou smear with manual screening 6 5-15 [facility] Laboratory - Chemistry and C hemistry - challengeOrdered By: Dr. Mane on 05-29-2022 Free T4 [Mass/Vol] 1.33 ng/dL 0.76-1.46 [facility] No Panel InformationOrdered By: Dr. Mane on 05-29-2022 Thyroid Stimulating Hormone (TSH) 3.70 uIU/mL 0.358-3.74 [facility] Absolute lymphocyte countOrd ered By: Dr. Babb on 04-12-2022 Lymphocytes Auto (Unsp spec) [#/Vol] 1.55 10*3/uL 0.83-4.51 [facility] Basophil percentageOrdered B y: Dr. Babb on 04-12-2022 Basophils/100 WBC (Bld) 0.8 % 0-1 [facility] Bilirubin [Mass/Vol] 0.40 mg/dL 0.20-1.00 [facility] Comment on above: For patients on eltr ombopag therapy, use of Dimension [place] TBIL is not recommended. Chloride [Moles/Vol] 107 mmol/L 98-107 [facility] Eosinophils/100 WBC (Bld) 0.4 % 0-5 [facility] Glucose [Mass/Vol] 103 mg/dL 74-106 [facility] Comment on above: Fasting Glucose resu lt from 100 to 125 mg/dL suggests IMPAIRED HOMEOSTASIS per A.D.A. criteria. Neutrophils (Bld) [#/Vol] 6.7 10*3/uL 2.0-7.7 [facility] Neutrophils/100 WBC (Bld) 71.0 % 47-70 [facility] Potassium [Moles/Vol] 3.9 mmol/L 3.5-5.1 [facility] Protein [Mass/Vol] 8.5 g/dL 6.4-8.2 [facility] Sodium [Moles/Vol] 136 mmol/L 136-145 [facility] WBC (Bld) [#/Vol] 9.5 10*3/uL 4.4-11.0 [facility] Blood erythrocytes count (nu mber/volume)Ordered By: Dr. Babb on 04-12-2022 RBC (Bld) [#/Vol] 4.43 10*6/uL 4.2-5.4 [facility] Blood hemoglobin measurement (mass/volume)Ordered By: Dr. Babb on 04-12-2022 Hemoglobin (Bld) [Mass/Vol] 14.5 g/dL 12.0-15.0 [facility] Blood lymphocytes/100 leukoc ytesOrdered By: Dr. Babb on 04-12-2022 Lymphocytes/100 WBC (Bld) 16.4 % 19-41 [facility] Blood monocytes/100 leukocyt esOrdered By: Dr. Babb on 04-12-2022 Monocytes/100 WBC (Bld) 10.4 % 0-10 [facility] Blood platelet mean volumeOr dered By: Dr. Babb on 04-12-2022 Platelet mean volume (Bld) [Entitic vol] 8.9 fL 6.2-12.0 [facility] Determination of erythrocyte mean corpuscular volume (MCV)Ordered By: Dr. Babb on 04-12-2022 MCV (RBC) [Entitic vol] 97.5 fL 81-99 [facility] Hematocrit Auto (Bld) [Volum e fraction]Ordered By: Dr. Babb on 04-12-2022 Hematocrit (Bld) [Volume fraction] 43.2 % 37-47 [facility] Laboratory - Chemistry and C hemistry - challengeOrdered By: Dr. Babb on 04-12-2022 ALP [Catalytic activity/Vol] 77 U/L 45-117 [facility] ALT [Catalytic activity/Vol] 30 U/L 13-56 [facility] CO2 [Moles/Vol] 22.0 mmol/L 21.0-32.0 [facility] Globulin (S) [Mass/Vol] 4.8 g/dL 2.2-4.2 [facility] Urea nitrogen/Creatinine [Mass ratio] 28.4 mg/mg 10-20 [facility] Laboratory - Hematology and Cell countsOrdered By: Dr. Babb on 04-12-2022 Erythrocyte distribution width (RBC) [Entitic vol] 56.2 fL 35.1-43.9 [facility] Erythrocyte distribution width (RBC) [Ratio] 15.7 % 11.6-14.6 [facility] Immature granulocytes/100 WBC (Bld) 1.000 % 0.0-0.9 [facility] Comment on above: IG% - Immature Granu locytes (promyelocytes, myelocytes and metamyelocytes) > 1% indicates that a LEFT SHIFT is Present. MCH (RBC) [Entitic mass] 32.7 pg 27.0-32.0 [facility] Nucleated RBC/100 WBC (Bld) [Ratio] 0 % 0-5 [facility] MCHC Auto (RBC) [Mass/Vol]Or dered By: Dr. Babb on 04-12-2022 MCHC (RBC) [Mass/Vol] 33.6 g/dL 32-36 [facility] No Panel InformationOrdered By: Dr. Babb on 04-12-2022 Estimated GFR (MDRD) Amer 91 mL/min >60 [facility] Comment on above: GFR Calc Estimated GFR (MDRD) Non-Af Amer 75 mL/min >60 [facility] Comment on above: Non- GFR Calc Hepatitis C Antibody Non-Reactive Nonreactive [facility] Comment on above: Non Reactive: < 0.8 Equivocal: >/= 0.8 to < 1.0 Reactive: >/= 1.0The CDC recommends that a reactive/equivocal HCV antibody result be followed up by the HCV Nucleic Acid Amplificationtest (247633) Thyroid Stimulating Hormone (TSH) 14.60 uIU/mL 0.358-3.74 [facility] Vitamin D 25-Hydroxy 51.2 ng/mL [facility] Comment on above: Vitamin D 25(OH) Sta tus Range Deficiency <20 ng/mL (50nmol/L) Insufficiency 20 - 30 ng/mL (50 - 75 nmol/L) Sufficiency 30 - 100 ng/mL (75 - 250 nmol/L) Toxicity >100 ng/mL (>250 nmol/L) Platelets bldOrdered By: Dr. Babb on 04-12-2022 Platelets (Bld) [#/Vol] 340 10*3/uL 150-450 [facility] Serum or plasma albumin nancy urement (mass/volume)Ordered By: Dr. Babb on 04-12-2022 Albumin [Mass/Vol] 3.7 g/dL 3.2-5.0 [facility] Serum or plasma albumin/glob ulin mass ratioOrdered By: Dr. Babb on 04-12-2022 Albumin/Globulin [Mass ratio] 0.8 {ratio} 0.9-2.4 [facility] Serum or plasma calcium nancy urement (mass/volume)Ordered By: Dr. Babb on 04-12-2022 Calcium [Mass/Vol] 9.7 mg/dL 8.5-10.1 [facility] Serum or plasma creatinine m easurement (mass/volume)Ordered By: Dr. Babb on 04-12-2022 Creatinine [Mass/Vol] 0.77 mg/dL 0.55-1.02 [facility] Comment on above: The validity of the calculated GFR & GFRAA in patients over 70 years has not been determined. Clinical correlation is essential. Serum or plasma urea nitroge n measurement (mass/volume)Ordered By: Dr. Babb on 04-12-2022 Urea nitrogen [Mass/Vol] 22 mg/dL 7-18 [facility] Thin prep Papanicolaou smear with manual screeningOrdered By: Dr. Babb on 04-12-2022 Thin prep Papanicolaou smear with manual screening 15 U/L 15-37 [facility] Thin prep Papanicolaou smear with manual screening 7 5-15 [facility] Basophil percentageOrdered B y: Brennan Dillard on 02-20-2022 Bilirubin [Mass/Vol] 0.30 mg/dL 0.20-1.00 [facility] Comment on above: For patients on eltr ombopag therapy, use of Dimension [place] TBIL is not recommended. Chloride [Moles/Vol] 105 mmol/L 98-107 [facility] Cholesterol [Mass/Vol] 138 mg/dL <200 [facility] Comment on above: <200 mg/dL Desirable 200-240 mg/dL Borderline >240 mg/dL High Risk Glucose [Mass/Vol] 93 mg/dL 74-106 [facility] [place] Potassium [Moles/Vol] 4.0 mmol/L 3.5-5.1 [facility] Comment on above: Slight Hemolysis, Re sult may be falsely increased. Protein [Mass/Vol] 7.4 g/dL 6.4-8.2 [facility] Sodium [Moles/Vol] 141 mmol/L 136-145 [facility] Triglyceride [Mass/Vol] 118 mg/dL <199 [facility] Comment on above: The drugs N-Acetylcy steine and Metamizole may falsely depress this assay.Serum Triglycerides Reference Interval Normal <150 mg/dL Borderline high 150 - 199 mg/dL High 200 - 499 mg/dL Very High > or = 500 mg/dL WBC (Bld) [#/Vol] 7.0 10*3/uL 4.4-11.0 [facility] Blood erythrocytes count (nu mber/volume)Ordered By: Brennan Dillard on 02-20-2022 RBC (Bld) [#/Vol] 4.59 10*6/uL 4.2-5.4 [facility] Blood hemoglobin measurement (mass/volume)Ordered By: Brennan Dillard on 02-20-2022 Hemoglobin (Bld) [Mass/Vol] 14.4 g/dL 12.0-15.0 [facility] Blood platelet mean volumeOr dered By: Brennan Dillard on 02-20-2022 Platelet mean volume (Bld) [Entitic vol] 8.9 fL 6.2-12.0 [facility] Determination of erythrocyte mean corpuscular volume (MCV)Ordered By: Brennan Dillard on 02-20-2022 MCV (RBC) [Entitic vol] 96.5 fL 81-99 [facility] Hematocrit Auto (Bld) [Volum e fraction]Ordered By: Brennan Dillard on 02-20-2022 Hematocrit (Bld) [Volume fraction] 44.3 % 37-47 [facility] Laboratory - Chemistry and C hemistry - challengeOrdered By: Brennan Dillard on 02-20-2022 ALP [Catalytic activity/Vol] 98 U/L 45-117 [facility] ALT [Catalytic activity/Vol] 32 U/L 13-56 [facility] CK [Catalytic activity/Vol] 40 U/L 26-192 [facility] CO2 [Moles/Vol] 25.0 mmol/L 21.0-32.0 [facility] Globulin (S) [Mass/Vol] 4.1 g/dL 2.2-4.2 [facility] Urea nitrogen/Creatinine [Mass ratio] 27.6 mg/mg 10-20 [facility] Laboratory - Hematology and Cell countsOrdered By: Brennan Dillard on 02-20-2022 Erythrocyte distribution width (RBC) [Entitic vol] 56.3 fL 35.1-43.9 [facility] Erythrocyte distribution width (RBC) [Ratio] 15.8 % 11.6-14.6 [facility] MCH (RBC) [Entitic mass] 31.4 pg 27.0-32.0 [facility] MCHC Auto (RBC) [Mass/Vol]Or dered By: Brennan Dillard on 02-20-2022 MCHC (RBC) [Mass/Vol] 32.5 g/dL 32-36 [facility] No Panel InformationOrdered By: Brennan Dillard on 02-20-2022 Estimated GFR (MDRD) Amer 137 mL/min >60 [facility] Comment on above: GFR Calc Estimated GFR (MDRD) Non-Af Amer 113 mL/min >60 [facility] Comment on above: Non- GFR Calc Platelets bldOrdered By: Hilary Dillard on 02-20-2022 Platelets (Bld) [#/Vol] 297 10*3/uL 150-450 [facility] Serum or plasma albumin nancy urement (mass/volume)Ordered By: Brennan Dillard on 02-20-2022 Albumin [Mass/Vol] 3.3 g/dL 3.2-5.0 [facility] Serum or plasma albumin/glob ulin mass ratioOrdered By: Brennan Dillard on 02-20-2022 Albumin/Globulin [Mass ratio] 0.8 {ratio} 0.9-2.4 [facility] Serum or plasma calcium nancy urement (mass/volume)Ordered By: Brennan Dillard on 02-20-2022 Calcium [Mass/Vol] 9.1 mg/dL 8.5-10.1 [facility] [place] Serum or plasma cholesterol in HDL measurement (mass/volume)Ordered By: Brennan Dillard on 02-20-2022 Cholesterol in HDL [Mass/Vol] 54 mg/dL >40 [facility] Comment on above: The drugs N-Acetylcy steine and Metamizole may falsely depress this assay. Reference Range HDL <40 mg/dL Low HDL Cholesterol HDL >or= 60 mg/dL High HDL Cholesterol Serum or plasma cholesterol in VLDL measurement (mass/volume)Ordered By: Brennan Dillard on 02-20-2022 Cholesterol in VLDL [Mass/Vol] 24 mg/dL 5-40 [facility] Serum or plasma creatinine m easurement (mass/volume)Ordered By: Brennan Dillard on 02-20-2022 Creatinine [Mass/Vol] 0.54 mg/dL 0.55-1.02 [facility] Comment on above: The validity of the calculated GFR & GFRAA in patients over 70 years has not been determined. Clinical correlation is essential. Serum or plasma low density lipoprotein (LDL) cholesterol measurement (mass/volume)Ordered By: Brennan Dillard on 02-20-2022 Cholesterol in LDL [Mass/Vol] 60 mg/dL 0-130 [facility] Serum or plasma urea nitroge n measurement (mass/volume)Ordered By: Brennan Dillard on 02-20-2022 Urea nitrogen [Mass/Vol] 15 mg/dL 7-18 [facility] Thin prep Papanicolaou smear with manual screeningOrdered By: Brennan Dillard on 02-20-2022 Thin prep Papanicolaou smear with manual screening 17 U/L 15-37 [facility] Comment on above: Slight Hemolysis, Re sult may be falsely increased. Thin prep Papanicolaou smear with manual screening 11 5-15 [facility] Progress Noteon 02-04-2022 Progress Note See Scanned Progress Notes Normal [facility] Absolute lymphocyte countOrd ered By: Dr. Babb on 01-25-2022 Lymphocytes Auto (Unsp spec) [#/Vol] 1.36 10*3/uL 0.83-4.51 [facility] Basophil percentageOrdered B y: Dr. Babb on 01-25-2022 Basophils/100 WBC (Bld) 1.4 % 0-1 [facility] Chloride [Moles/Vol] 108 mmol/L 98-107 [facility] Eosinophils/100 WBC (Bld) 2.0 % 0-5 [facility] Glucose [Mass/Vol] 92 mg/dL 74-106 [facility] [place] Neutrophils (Bld) [#/Vol] 4.1 10*3/uL 2.0-7.7 [facility] Neutrophils/100 WBC (Bld) 63.9 % 47-70 [facility] Potassium [Moles/Vol] 3.7 mmol/L 3.5-5.1 [facility] Sodium [Moles/Vol] 140 mmol/L 136-145 [facility] [place] WBC (Bld) [#/Vol] 6.4 10*3/uL 4.4-11.0 [facility] Blood erythrocytes count (nu mber/volume)Ordered By: Dr. Babb on 01-25-2022 RBC (Bld) [#/Vol] 4.12 10*6/uL 4.2-5.4 [facility] Blood hemoglobin measurement (mass/volume)Ordered By: Dr. Babb on 01-25-2022 Hemoglobin (Bld) [Mass/Vol] 13.2 g/dL 12.0-15.0 [facility] Blood lymphocytes/100 leukoc ytesOrdered By: Dr. Babb on 01-25-2022 Lymphocytes/100 WBC (Bld) 21.2 % 19-41 [facility] Blood monocytes/100 leukocyt esOrdered By: Dr. Babb on 01-25-2022 Monocytes/100 WBC (Bld) 10.9 % 0-10 [facility] Blood platelet mean volumeOr dered By: Dr. Babb on 01-25-2022 Platelet mean volume (Bld) [Entitic vol] 8.7 fL 6.2-12.0 [facility] Determination of erythrocyte mean corpuscular volume (MCV)Ordered By: Dr. Babb on 01-25-2022 MCV (RBC) [Entitic vol] 95.1 fL 81-99 [facility] Hematocrit Auto (Bld) [Volum e fraction]Ordered By: Dr. Babb on 01-25-2022 Hematocrit (Bld) [Volume fraction] 39.2 % 37-47 [facility] Laboratory - Chemistry and C hemistry - challengeOrdered By: Dr. Babb on 01-25-2022 CO2 [Moles/Vol] 26.0 mmol/L 21.0-32.0 [facility] Urea nitrogen/Creatinine [Mass ratio] 23.2 mg/mg 10-20 [facility] Laboratory - Hematology and Cell countsOrdered By: Dr. Babb on 01-25-2022 Erythrocyte distribution width (RBC) [Entitic vol] 58.6 fL 35.1-43.9 [facility] Erythrocyte distribution width (RBC) [Ratio] 16.9 % 11.6-14.6 [facility] Immature granulocytes/100 WBC (Bld) 0.600 % 0.0-0.9 [facility] Comment on above: IG% - Immature Granu locytes (promyelocytes, myelocytes and metamyelocytes) > 1% indicates that a LEFT SHIFT is Present. MCH (RBC) [Entitic mass] 32.0 pg 27.0-32.0 [facility] Nucleated RBC/100 WBC (Bld) [Ratio] 0 % 0-5 [facility] MCHC Auto (RBC) [Mass/Vol]Or dered By: Dr. Babb on 01-25-2022 MCHC (RBC) [Mass/Vol] 33.7 g/dL 32-36 [facility] No Panel InformationOrdered By: Dr. Babb on 01-25-2022 Estimated Creatinine Clearance Calc 29.54 ml/min [facility] Estimated GFR (MDRD) Amer 145 mL/min >60 [facility] Comment on above: GFR Calc Estimated GFR (MDRD) Non-Af Amer 120 mL/min >60 [facility] Comment on above: Non- GFR Calc Platelets bldOrdered By: Dr. Babb on 01-25-2022 Platelets (Bld) [#/Vol] 255 10*3/uL 150-450 [facility] Serum or plasma calcium nancy urement (mass/volume)Ordered By: Dr. Babb on 01-25-2022 Calcium [Mass/Vol] 8.7 mg/dL 8.5-10.1 [facility] [place] Serum or plasma creatinine m easurement (mass/volume)Ordered By: Dr. Babb on 01-25-2022 Creatinine [Mass/Vol] 0.52 mg/dL 0.55-1.02 [facility] Comment on above: The validity of the calculated GFR & GFRAA in patients over 70 years has not been determined. Clinical correlation is essential. Serum or plasma urea nitroge n measurement (mass/volume)Ordered By: Dr. Babb on 01-25-2022 Urea nitrogen [Mass/Vol] 12 mg/dL 7-18 [facility] Thin prep Papanicolaou smear with manual screeningOrdered By: Dr. Babb on 01-25-2022 Thin prep Papanicolaou smear with manual screening 6 5-15 [facility] Basophil percentageon 2021 Chloride [Moles/Vol] 109 mmol/L 98-107 [facility] Work Phone: Glucose [Mass/Vol] 100 mg/dL 74-106 [facility] [place] Work Phone: Comment on above: Fasting Glucose resu lt from 100 to 125 mg/dL suggests IMPAIRED HOMEOSTASIS per A.D.A. criteria. Potassium [Moles/Vol] 3.7 mmol/L 3.5-5.1 [facility] Work Phone: Sodium [Moles/Vol] 139 mmol/L 136-145 [facility] [place] Work Phone: Laboratory - Chemistry and C hemistry - challengeon 01-19-2022 CO2 [Moles/Vol] 23.0 mmol/L 21.0-32.0 [facility] Work Phone: Urea nitrogen/Creatinine [Mass ratio] 22.9 mg/mg 10-20 [facility] Work Phone: No Panel Informationon 01-19 Estimated Creatinine Clearance Calc 29.54 ml/min [facility] Work Phone: Estimated GFR (MDRD) Amer 130 mL/min >60 [facility] Work Phone: Comment on above: GFR Calc Estimated GFR (MDRD) Non-Af Amer 108 mL/min >60 [facility] Work Phone: Comment on above: Non- GFR Calc Serum or plasma calcium nancy urement (mass/volume)on 01-19-2022 Calcium [Mass/Vol] 9.0 mg/dL 8.5-10.1 [facility] [place] Work Phone: Serum or plasma creatinine m easurement (mass/volume)on 01-19-2022 Creatinine [Mass/Vol] 0.57 mg/dL 0.55-1.02 [facility] Work Phone: Comment on above: The validity of the calculated GFR & GFRAA in patients over 70 years has not been determined. Clinical correlation is essential. Serum or plasma urea nitroge n measurement (mass/volume)on 01-19-2022 Urea nitrogen [Mass/Vol] 13 mg/dL 7-18 [facility] Work Phone: Thin prep Papanicolaou smear with manual screeningon 01-19-2022 Thin prep Papanicolaou smear with manual screening 7 5-15 [facility] Work Phone: Absolute lymphocyte counton 01-18-2022 Lymphocytes Auto (Unsp spec) [#/Vol] 1.64 10*3/uL 0.83-4.51 [facility] Work Phone: Basophil percentageon 2021 Basophils/100 WBC (Bld) 1.0 % 0-1 [facility] Work Phone: Eosinophils/100 WBC (Bld) 1.9 % 0-5 [facility] Work Phone: Neutrophils (Bld) [#/Vol] 5.4 10*3/uL 2.0-7.7 [facility] Work Phone: Neutrophils/100 WBC (Bld) 66.6 % 47-70 [facility] Work Phone: WBC (Bld) [#/Vol] 8.0 10*3/uL 4.4-11.0 [facility] [place] Work Phone: Blood erythrocytes count (nu mber/volume)on 01-18-2022 RBC (Bld) [#/Vol] 4.27 10*6/uL 4.2-5.4 [facility] Work Phone: Blood hemoglobin measurement (mass/volume)on 01-18-2022 Hemoglobin (Bld) [Mass/Vol] 13.0 g/dL 12.0-15.0 [facility] Work Phone: Blood lymphocytes/100 leukoc yteson 12-14-2022 Lymphocytes/100 WBC (Bld) 20.4 % 19-41 [facility] Work Phone: Blood monocytes/100 leukocyt eson 01-18-2022 Monocytes/100 WBC (Bld) 9.5 % 0-10 [facility] Work Phone: Blood platelet mean volumeon 01-18-2022 Platelet mean volume (Bld) [Entitic vol] 9.1 fL 6.2-12.0 [facility] Work Phone: Determination of erythrocyte mean corpuscular volume (MCV)on 01-18-2022 MCV (RBC) [Entitic vol] 95.3 fL 81-99 [facility] Work Phone: Hematocrit Auto (Bld) [Volum e fraction]on 01-18-2022 Hematocrit (Bld) [Volume fraction] 40.7 % 37-47 [facility] Work Phone: Laboratory - Hematology and Cell countson 01-18-2022 Erythrocyte distribution width (RBC) [Entitic vol] 58.4 fL 35.1-43.9 [facility] Work Phone: Erythrocyte distribution width (RBC) [Ratio] 16.6 % 11.6-14.6 [facility] Work Phone: Immature granulocytes/100 WBC (Bld) 0.600 % 0.0-0.9 [facility] Work Phone: Comment on above: IG% - Immature Granu locytes (promyelocytes, myelocytes and metamyelocytes) > 1% indicates that a LEFT SHIFT is Present. MCH (RBC) [Entitic mass] 30.4 pg 27.0-32.0 [facility] Work Phone: Nucleated RBC/100 WBC (Bld) [Ratio] 0 % 0-5 [facility] Work Phone: MCHC Auto (RBC) [Mass/Vol]on 01-18-2022 MCHC (RBC) [Mass/Vol] 31.9 g/dL 32-36 [facility] Work Phone: Platelets bldon 01-18-2022 Platelets (Bld) [#/Vol] 299 10*3/uL 150-450 [facility] Work Phone: COVID-19 virus antigen assay Ordered By: Dr. Babb on 01-07-2022 SARS-CoV-2 (COVID-19) Ag IA.rapid Ql (Resp) [facility] Absolute lymphocyte countOrd ered By: Dr. Mooney on 01-03-2022 Lymphocytes Auto (Unsp spec) [#/Vol] 1.11 10*3/uL 0.83-4.51 [facility] Basophil percentageOrdered B y: Dr. Mooney on 01-03-2022 Basophils/100 WBC (Bld) 0.9 % 0-1 [facility] Chloride [Moles/Vol] 106 mmol/L 98-107 [facility] Eosinophils/100 WBC (Bld) 2.8 % 0-5 [facility] Glucose [Mass/Vol] 104 mg/dL 74-106 [facility] [place] Comment on above: Fasting Glucose resu lt from 100 to 125 mg/dL suggests IMPAIRED HOMEOSTASIS per A.D.A. criteria. Neutrophils (Bld) [#/Vol] 4.6 10*3/uL 2.0-7.7 [facility] Neutrophils/100 WBC (Bld) 69.0 % 47-70 [facility] Potassium [Moles/Vol] 4.0 mmol/L 3.5-5.1 [facility] Sodium [Moles/Vol] 137 mmol/L 136-145 [facility] [place] WBC (Bld) [#/Vol] 6.7 10*3/uL 4.4-11.0 [facility] Blood erythrocytes count (nu mber/volume)Ordered By: Dr. Mooney on 01-03-2022 RBC (Bld) [#/Vol] 4.44 10*6/uL 4.2-5.4 [facility] Blood hemoglobin measurement (mass/volume)Ordered By: Dr. Mooney on 01-03-2022 Hemoglobin (Bld) [Mass/Vol] 13.7 g/dL 12.0-15.0 [facility] Blood lymphocytes/100 leukoc ytesOrdered By: Dr. Mooney on 01-03-2022 Lymphocytes/100 WBC (Bld) 16.5 % 19-41 [facility] Blood monocytes/100 leukocyt esOrdered By: Dr. Mooney on 01-03-2022 Monocytes/100 WBC (Bld) 10.4 % 0-10 [facility] Blood platelet mean volumeOr dered By: Dr. Mooney on 01-03-2022 Platelet mean volume (Bld) [Entitic vol] 9.4 fL 6.2-12.0 [facility] COVID-19 virus antigen assay Ordered By: Dr. Schneider on 01-03-2022 SARS-CoV-2 (COVID-19) Ag IA.rapid Ql (Resp) [facility] Determination of erythrocyte mean corpuscular volume (MCV)Ordered By: Dr. Mooney on 01-03-2022 MCV (RBC) [Entitic vol] 96.4 fL 81-99 [facility] Hematocrit Auto (Bld) [Volum e fraction]Ordered By: Dr. Mooney on 01-03-2022 Hematocrit (Bld) [Volume fraction] 42.8 % 37-47 [facility] Laboratory - Chemistry and C hemistry - challengeOrdered By: Dr. Mooney on 01-03-2022 CO2 [Moles/Vol] 25.0 mmol/L 21.0-32.0 [facility] Urea nitrogen/Creatinine [Mass ratio] 14.7 mg/mg 10-20 [facility] Laboratory - Hematology and Cell countsOrdered By: Dr. Mooney on 01-03-2022 Erythrocyte distribution width (RBC) [Entitic vol] 62.4 fL 35.1-43.9 [facility] Erythrocyte distribution width (RBC) [Ratio] 17.6 % 11.6-14.6 [facility] Immature granulocytes/100 WBC (Bld) 0.400 % 0.0-0.9 [facility] Comment on above: IG% - Immature Granu locytes (promyelocytes, myelocytes and metamyelocytes) > 1% indicates that a LEFT SHIFT is Present. MCH (RBC) [Entitic mass] 30.9 pg 27.0-32.0 [facility] Nucleated RBC/100 WBC (Bld) [Ratio] 0 % 0-5 [facility] MCHC Auto (RBC) [Mass/Vol]Or dered By: Dr. Mooney on 01-03-2022 MCHC (RBC) [Mass/Vol] 32.0 g/dL 32-36 [facility] No Panel InformationOrdered By: Dr. Mooney on 01-03-2022 Estimated Creatinine Clearance Calc 29.54 ml/min [facility] Estimated GFR (MDRD) Amer 159 mL/min >60 [facility] Comment on above: GFR Calc Estimated GFR (MDRD) Non-Af Amer 132 mL/min >60 [facility] Comment on above: Non- GFR Calc Platelets bldOrdered By: Dr. Mooney on 01-03-2022 Platelets (Bld) [#/Vol] 280 10*3/uL 150-450 [facility] Serum or plasma calcium nancy urement (mass/volume)Ordered By: Dr. Mooney on 01-03-2022 Calcium [Mass/Vol] 8.9 mg/dL 8.5-10.1 [facility] [place] Serum or plasma creatinine m easurement (mass/volume)Ordered By: Dr. Mooney on 01-03-2022 Creatinine [Mass/Vol] 0.48 mg/dL 0.55-1.02 [facility] Comment on above: The validity of the calculated GFR & GFRAA in patients over 70 years has not been determined. Clinical correlation is essential. Serum or plasma urea nitroge n measurement (mass/volume)Ordered By: Dr. Mooney on 01-03-2022 Urea nitrogen [Mass/Vol] 7 mg/dL 7-18 [facility] Thin prep Papanicolaou smear with manual screeningOrdered By: Dr. Mooney on 01-03-2022 Thin prep Papanicolaou smear with manual screening 6 5-15 [facility] Absolute lymphocyte counton 01-02-2022 Lymphocytes Auto (Unsp spec) [#/Vol] 1.13 10*3/uL 0.83-4.51 [facility] Work Phone: Basophil percentageon 2021 Basophils/100 WBC (Bld) 0.6 % 0-1 [facility] Work Phone: Chloride [Moles/Vol] 102 mmol/L 98-107 [facility] Work Phone: Eosinophils/100 WBC (Bld) 1.1 % 0-5 [facility] Work Phone: Glucose [Mass/Vol] 153 mg/dL 74-106 [facility] [place] Work Phone: Comment on above: Fasting Glucose resu lt greater than or equal to 126 mg/dL suggests DIABETES MELLITUS per A.D.A. criteria. Neutrophils (Bld) [#/Vol] 4.5 10*3/uL 2.0-7.7 [facility] Work Phone: Neutrophils/100 WBC (Bld) 70.9 % 47-70 [facility] Work Phone: Potassium [Moles/Vol] 3.0 mmol/L 3.5-5.1 [facility] Work Phone: Sodium [Moles/Vol] 134 mmol/L 136-145 [facility] [place] Work Phone: WBC (Bld) [#/Vol] 6.4 10*3/uL 4.4-11.0 [facility] [place] Work Phone: Basophil percentageOrdered B y: Dr. Mooney on 01-02-2022 Cholesterol [Mass/Vol] 143 mg/dL <200 [facility] Comment on above: <200 mg/dL Desirable 200-240 mg/dL Borderline >240 mg/dL High Risk Triglyceride [Mass/Vol] 67 mg/dL <199 [facility] Comment on above: The drugs N-Acetylcy steine and Metamizole may falsely depress this assay.Serum Triglycerides Reference Interval Normal <150 mg/dL Borderline high 150 - 199 mg/dL High 200 - 499 mg/dL Very High > or = 500 mg/dL Blood erythrocytes count (nu mber/volume)on 01-02-2022 RBC (Bld) [#/Vol] 3.95 10*6/uL 4.2-5.4 [facility] Work Phone: Blood hemoglobin measurement (mass/volume)on 01-02-2022 Hemoglobin (Bld) [Mass/Vol] 12.1 g/dL 12.0-15.0 [facility] Work Phone: Blood lymphocytes/100 leukoc yteson 01-02-2022 Lymphocytes/100 WBC (Bld) 17.8 % 19-41 [facility] Work Phone: Blood monocytes/100 leukocyt eson 01-02-2022 Monocytes/100 WBC (Bld) 8.8 % 0-10 [facility] Work Phone: Blood platelet mean volumeon 01-02-2022 Platelet mean volume (Bld) [Entitic vol] 9.1 fL 6.2-12.0 [facility] Work Phone: Determination of erythrocyte mean corpuscular volume (MCV)on 01-02-2022 MCV (RBC) [Entitic vol] 93.7 fL 81-99 [facility] Work Phone: Glucose Glucometer (BldC) [M ass/Vol]Ordered By: Dr. Mooney on 01-02-2022 Glucose [Mass/Vol] 140 mg/dL 74-106 [facility] [place] Comment on above: MANAGEMENT OF PATIEN T CARE PER NURSING PROTOCOL Glucose Glucometer (BldC) [M ass/Vol]on 01-02-2022 Glucose [Mass/Vol] 154 mg/dL 74-106 [facility] [place] Work Phone: Comment on above: MANAGEMENT OF PATIEN T CARE PER NURSING PROTOCOL Hematocrit Auto (Bld) [Volum e fraction]on 01-02-2022 Hematocrit (Bld) [Volume fraction] 37.0 % 37-47 [facility] Work Phone: INR in Blood by Coagulation assayOrdered By: Dr. Trinh on 01-02-2022 INR Coag (Bld) [Relative time] 1.1 {INR} [facility] Laboratory - Chemistry and C hemistry - challengeon 01-02-2022 CO2 [Moles/Vol] 24.0 mmol/L 21.0-32.0 [facility] Work Phone: Urea nitrogen/Creatinine [Mass ratio] 21.6 mg/mg 10-20 [facility] Work Phone: [phone] Laboratory - CoagulationOrde red By: Dr. Trinh on 01-02-2022 aPTT Coag (Bld) [Time] 25.3 s 24.1-36.2 [facility] PT Coag (PPP) [Time] 14.3 s 11.7-14.9 [facility] Laboratory - Hematology and Cell countson 01-02-2022 Erythrocyte distribution width (RBC) [Entitic vol] 59.2 fL 35.1-43.9 [facility] Work Phone: [phone] Erythrocyte distribution width (RBC) [Ratio] 17.1 % 11.6-14.6 [facility] Work Phone: [phone] Immature granulocytes/100 WBC (Bld) 0.800 % 0.0-0.9 [facility] Work Phone: [phone] Comment on above: IG% - Immature Granu locytes (promyelocytes, myelocytes and metamyelocytes) > 1% indicates that a LEFT SHIFT is Present. MCH (RBC) [Entitic mass] 30.6 pg 27.0-32.0 [facility] Work Phone: [phone] Nucleated RBC/100 WBC (Bld) [Ratio] 0 % 0-5 [facility] Work Phone: [phone] MCHC Auto (RBC) [Mass/Vol]on 01-02-2022 MCHC (RBC) [Mass/Vol] 32.7 g/dL 32-36 [facility] Work Phone: No Panel Informationon 01-02 Estimated Creatinine Clearance Calc 29.54 ml/min [facility] Work Phone: [phone] Estimated GFR (MDRD) Amer 121 mL/min >60 [facility] Work Phone: [phone] Comment on above: GFR Calc Estimated GFR (MDRD) Non-Af Amer 100 mL/min >60 [facility] Work Phone: [phone] Comment on above: Non- GFR Calc No Panel InformationOrdered By: Dr. Trinh on 01-02-2022 Troponin I High Sensitivity 23 pg/mL 3.0-54.0 [facility] Comment on above: Please Note: New Jacqueline t Units and Gender Specific Reference Ranges. For more information see Policy Stat Procedure [place] High Sensitivity Troponin (TNIH) and attachments. Platelets bldon 01-02-2022 Platelets (Bld) [#/Vol] 251 10*3/uL 150-450 [facility] Work Phone: Serum or plasma calcium nancy urement (mass/volume)on 01-02-2022 Calcium [Mass/Vol] 8.2 mg/dL 8.5-10.1 [facility] [place] Work Phone: Serum or plasma cholesterol in HDL measurement (mass/volume)Ordered By: Dr. Mooney on 01-02-2022 Cholesterol in HDL [Mass/Vol] 47 mg/dL >40 [facility] Comment on above: The drugs N-Acetylcy steine and Metamizole may falsely depress this assay. Reference Range HDL <40 mg/dL Low HDL Cholesterol HDL >or= 60 mg/dL High HDL Cholesterol Serum or plasma cholesterol in VLDL measurement (mass/volume)Ordered By: Dr. Mooney on 01-02-2022 Cholesterol in VLDL [Mass/Vol] 13 mg/dL 5-40 [facility] Serum or plasma creatinine m easurement (mass/volume)on 01-02-2022 Creatinine [Mass/Vol] 0.60 mg/dL 0.55-1.02 [facility] Work Phone: Comment on above: The validity of the calculated GFR & GFRAA in patients over 70 years has not been determined. Clinical correlation is essential. Serum or plasma low density lipoprotein (LDL) cholesterol measurement (mass/volume)Ordered By: Dr. Mooney on 01-02-2022 Cholesterol in LDL [Mass/Vol] 83 mg/dL 0-130 [facility] Serum or plasma urea nitroge n measurement (mass/volume)on 01-02-2022 Urea nitrogen [Mass/Vol] 13 mg/dL 7-18 [facility] Work Phone: Thin prep Papanicolaou smear with manual screeningon 01-02-2022 Thin prep Papanicolaou smear with manual screening 8 5-15 [facility] Work Phone: Whole blood hemoglobin A1c/t otal hemoglobin ratio (mass fraction)Ordered By: Dr. Mooney on 01-02-2022 HbA1c (Bld) [Mass fraction] 5.2 % 3.8-5.6 [facility] Comment on above: Normal < 5.7 % Predi abetic 5.7 - 6.4 % Diabetic >or= 6.5 % Please note range changes. Absolute lymphocyte counton 10-21-2021 Lymphocytes Auto (Unsp spec) [#/Vol] 1.54 10*3/uL 0.83-4.51 [facility] Work Phone: Basophil percentageon 2021 Basophils/100 WBC (Bld) 1.0 % 0-1 [facility] Work Phone: Bilirubin [Mass/Vol] 0.40 mg/dL 0.20-1.00 [facility] Work Phone: Comment on above: For patients on eltr ombopag therapy, use of Dimension [place] TBIL is not recommended. Chloride [Moles/Vol] 107 mmol/L 98-107 [facility] Work Phone: Eosinophils/100 WBC (Bld) 1.2 % 0-5 [facility] Work Phone: Glucose [Mass/Vol] 101 mg/dL 74-106 [facility] [place] Work Phone: Comment on above: Fasting Glucose resu lt from 100 to 125 mg/dL suggests IMPAIRED HOMEOSTASIS per A.D.A. criteria. Neutrophils (Bld) [#/Vol] 3.2 10*3/uL 2.0-7.7 [facility] Work Phone: Neutrophils/100 WBC (Bld) 55.8 % 47-70 [facility] Work Phone: Potassium [Moles/Vol] 3.6 mmol/L 3.5-5.1 [facility] Work Phone: Protein [Mass/Vol] 7.8 g/dL 6.4-8.2 [facility] [place] Work Phone: [phone] Sodium [Moles/Vol] 141 mmol/L 136-145 [facility] Work Phone: [phone] WBC (Bld) [#/Vol] 5.8 10*3/uL 4.4-11.0 [facility] Work Phone: Blood erythrocytes count (nu mber/volume)on 10-21-2021 RBC (Bld) [#/Vol] 4.70 10*6/uL 4.2-5.4 [facility] Work Phone: [phone] Blood hemoglobin measurement (mass/volume)on 10-21-2021 Hemoglobin (Bld) [Mass/Vol] 13.4 g/dL 12.0-15.0 [facility] Work Phone: Blood lymphocytes/100 leukoc yteson 10-21-2021 Lymphocytes/100 WBC (Bld) 26.5 % 19-41 [facility] Work Phone: [phone] Blood monocytes/100 leukocyt eson 10-21-2021 Monocytes/100 WBC (Bld) 15.0 % 0-10 [facility] Work Phone: Blood platelet mean volumeon 10-21-2021 Platelet mean volume (Bld) [Entitic vol] 9.4 fL 6.2-12.0 [facility] Work Phone: Determination of erythrocyte mean corpuscular volume (MCV)on 10-21-2021 MCV (RBC) [Entitic vol] 88.1 fL 81-99 [facility] Work Phone: Hematocrit Auto (Bld) [Volum e fraction]on 10-21-2021 Hematocrit (Bld) [Volume fraction] 41.4 % 37-47 [facility] Work Phone: [phone] Laboratory - Chemistry and C hemistry - challengeon 10-21-2021 ALP [Catalytic activity/Vol] 57 U/L 45-117 [facility] Work Phone: [phone] ALT [Catalytic activity/Vol] 23 U/L 13-56 [facility] Work Phone: [phone] CK [Catalytic activity/Vol] 73 U/L 26-192 [facility] Work Phone: [phone] CO2 [Moles/Vol] 25.0 mmol/L 21.0-32.0 [facility] Work Phone: [phone] Globulin (S) [Mass/Vol] 4.1 g/dL 2.2-4.2 [facility] Work Phone: [phone] Urea nitrogen/Creatinine [Mass ratio] 18.5 mg/mg 10-20 [facility] Work Phone: [phone] Laboratory - Hematology and Cell countson 10-21-2021 Erythrocyte distribution width (RBC) [Entitic vol] 53.2 fL 35.1-43.9 [facility] Work Phone: [phone] Erythrocyte distribution width (RBC) [Ratio] 17.1 % 11.6-14.6 [facility] Work Phone: [phone] Immature granulocytes/100 WBC (Bld) 0.500 % 0.0-0.9 [facility] Work Phone: [phone] Comment on above: IG% - Immature Granu locytes (promyelocytes, myelocytes and metamyelocytes) > 1% indicates that a LEFT SHIFT is Present. MCH (RBC) [Entitic mass] 28.5 pg 27.0-32.0 [facility] Work Phone: [phone] Nucleated RBC/100 WBC (Bld) [Ratio] 0 % 0-5 [facility] Work Phone: [phone] MCHC Auto (RBC) [Mass/Vol]on 10-21-2021 MCHC (RBC) [Mass/Vol] 32.4 g/dL 32-36 [facility] Work Phone: [phone] Panel Informationon 10-21 Estimated GFR (MDRD) Amer 112 mL/min >60 [facility] Work Phone: [phone] Comment on above: GFR Calc Estimated GFR (MDRD) Non-Af Amer 92 mL/min >60 [facility] Work Phone: Comment on above: Non- GFR Calc Platelets bldon 10-21-2021 Platelets (Bld) [#/Vol] 304 10*3/uL 150-450 [facility] Work Phone: Serum or plasma albumin nancy urement (mass/volume)on 10-21-2021 Albumin [Mass/Vol] 3.7 g/dL 3.2-5.0 [facility] Work Phone: Serum or plasma albumin/glob ulin mass ratioon 10-21-2021 Albumin/Globulin [Mass ratio] 0.9 {ratio} 0.9-2.4 [facility] Work Phone: [phone] Serum or plasma calcium nancy urement (mass/volume)on 10-21-2021 Calcium [Mass/Vol] 9.5 mg/dL 8.5-10.1 [facility] Work Phone: [phone] Serum or plasma creatinine m easurement (mass/volume)on 10-21-2021 Creatinine [Mass/Vol] 0.65 mg/dL 0.55-1.02 [facility] Work Phone: Comment on above: The validity of the calculated GFR & GFRAA in patients over 70 years has not been determined. Clinical correlation is essential. Serum or plasma urea nitroge n measurement (mass/volume)on 10-21-2021 Urea nitrogen [Mass/Vol] 12 mg/dL 7-18 [facility] Work Phone: [phone] Thin prep Papanicolaou smear with manual screeningon 10-21-2021 Thin prep Papanicolaou smear with manual screening 17 U/L 15-37 [facility] Work Phone: [phone] Thin prep Papanicolaou smear with manual screening 9 5-15 [facility] Work Phone: [phone] Absolute lymphocyte counton 06-24-2021 Lymphocytes Auto (Unsp spec) [#/Vol] 2.05 10*3/uL 0.83-4.51 [facility] Work Phone: Basophil percentageon 2021 Basophils/100 WBC (Bld) 0.9 % 0-1 [facility] Work Phone: Bilirubin [Mass/Vol] 0.50 mg/dL 0.20-1.00 [facility] Work Phone: Comment on above: For patients on eltr ombopag therapy, use of Dimension [place] TBIL is not recommended. Chloride [Moles/Vol] 106 mmol/L 98-107 [facility] Work Phone: Eosinophils/100 WBC (Bld) 1.6 % 0-5 [facility] Work Phone: Glucose [Mass/Vol] 96 mg/dL 74-106 [facility] Work Phone: Neutrophils (Bld) [#/Vol] 3.4 10*3/uL 2.0-7.7 [facility] Work Phone: Neutrophils/100 WBC (Bld) 53.2 % 47-70 [facility] Work Phone: Potassium [Moles/Vol] 3.8 mmol/L 3.5-5.1 [facility] Work Phone: Protein [Mass/Vol] 7.5 g/dL 6.4-8.2 [facility] Work Phone: Sodium [Moles/Vol] 138 mmol/L 136-145 [facility] Work Phone: WBC (Bld) [#/Vol] 6.3 10*3/uL 4.4-11.0 [facility] Work Phone: Blood erythrocytes count (nu mber/volume)on 06-24-2021 RBC (Bld) [#/Vol] 4.57 10*6/uL 4.2-5.4 [facility] Work Phone: Blood hemoglobin measurement (mass/volume)on 06-24-2021 Hemoglobin (Bld) [Mass/Vol] 13.2 g/dL 12.0-15.0 [facility] Work Phone: Blood lymphocytes/100 leukoc yteson 06-24-2021 Lymphocytes/100 WBC (Bld) 32.4 % 19-41 [facility] Work Phone: Blood monocytes/100 leukocyt eson 06-24-2021 Monocytes/100 WBC (Bld) 11.4 % 0-10 [facility] Work Phone: Blood platelet mean volumeon 06-24-2021 Platelet mean volume (Bld) [Entitic vol] 9.2 fL 6.2-12.0 [facility] Work Phone: Determination of erythrocyte mean corpuscular volume (MCV)on 06-24-2021 MCV (RBC) [Entitic vol] 88.8 fL 81-99 [facility] Work Phone: Hematocrit Auto (Bld) [Volum e fraction]on 06-24-2021 Hematocrit (Bld) [Volume fraction] 40.6 % 37-47 [facility] Work Phone: Laboratory - Chemistry and C hemistry - challengeon 06-24-2021 ALP [Catalytic activity/Vol] 77 U/L 45-117 [facility] Work Phone: ALT [Catalytic activity/Vol] 27 U/L 13-56 [facility] Work Phone: CK [Catalytic activity/Vol] 37 U/L 26-192 [facility] Work Phone: CO2 [Moles/Vol] 24.0 mmol/L 21.0-32.0 [facility] Work Phone: Globulin (S) [Mass/Vol] 3.7 g/dL 2.2-4.2 [facility] Work Phone: Urea nitrogen/Creatinine [Mass ratio] 19.2 mg/mg 10-20 [facility] Work Phone: Laboratory - Hematology and Cell countson 06-24-2021 Erythrocyte distribution width (RBC) [Entitic vol] 50.4 fL 35.1-43.9 [facility] Work Phone: [phone] Erythrocyte distribution width (RBC) [Ratio] 15.5 % 11.6-14.6 [facility] Work Phone: [phone] Immature granulocytes/100 WBC (Bld) 0.500 % 0.0-0.9 [facility] Work Phone: [phone] Comment on above: IG% - Immature Granu locytes (promyelocytes, myelocytes and metamyelocytes) > 1% indicates that a LEFT SHIFT is Present. MCH (RBC) [Entitic mass] 28.9 pg 27.0-32.0 [facility] Work Phone: [phone] Nucleated RBC/100 WBC (Bld) [Ratio] 0 % 0-5 [facility] Work Phone: [phone] MCHC Auto (RBC) [Mass/Vol]on 06-24-2021 MCHC (RBC) [Mass/Vol] 32.5 g/dL 32-36 [facility] Work Phone: [phone] Panel Informationon 06-24 Estimated GFR (MDRD) Amer 106 mL/min >60 [facility] Work Phone: [phone] Comment on above: GFR Calc Estimated GFR (MDRD) Non-Af Amer 88 mL/min >60 [facility] Work Phone: [phone] Comment on above: Non- GFR Calc Platelets bldon 06-24-2021 Platelets (Bld) [#/Vol] 352 10*3/uL 150-450 [facility] Work Phone: [phone] Serum or plasma albumin nancy urement (mass/volume)on 06-24-2021 Albumin [Mass/Vol] 3.8 g/dL 3.2-5.0 [facility] Work Phone: [phone] Serum or plasma albumin/glob ulin mass ratioon 06-24-2021 Albumin/Globulin [Mass ratio] 1.0 {ratio} 0.9-2.4 [facility] Work Phone: [phone] Serum or plasma calcium nancy urement (mass/volume)on 06-24-2021 Calcium [Mass/Vol] 9.3 mg/dL 8.5-10.1 [facility] Work Phone: Serum or plasma creatinine m easurement (mass/volume)on 06-24-2021 Creatinine [Mass/Vol] 0.68 mg/dL 0.55-1.02 [facility] Work Phone: Comment on above: The validity of the calculated GFR & GFRAA in patients over 70 years has not been determined. Clinical correlation is essential. Serum or plasma urea nitroge n measurement (mass/volume)on 06-24-2021 Urea nitrogen [Mass/Vol] 13 mg/dL 7-18 [facility] Work Phone: Thin prep Papanicolaou smear with manual screeningon 06-24-2021 Thin prep Papanicolaou smear with manual screening 17 U/L 15-37 [facility] Work Phone: Thin prep Papanicolaou smear with manual screening 8 5-15 [facility] Work Phone: Absolute lymphocyte counton 04-11-2021 Lymphocytes Auto (Unsp spec) [#/Vol] 1.88 10*3/uL 0.83-4.51 [facility] Work Phone: Basophil percentageon 2021 Basophils/100 WBC (Bld) 0.9 % 0-1 [facility] Work Phone: Bilirubin [Mass/Vol] 0.50 mg/dL 0.20-1.00 [facility] Work [phone] Comment on above: For patients on eltr ombopag therapy, use of Dimension [place] TBIL is not recommended. Chloride [Moles/Vol] 106 mmol/L 98-107 [facility] Work Phone: Cholesterol [Mass/Vol] 166 mg/dL <200 [facility] Work Phone: Comment on above: <200 mg/dL Desirable 200-240 mg/dL Borderline >240 mg/dL High Risk Eosinophils/100 WBC (Bld) 1.4 % 0-5 [facility] Work Phone: Glucose [Mass/Vol] 99 mg/dL 74-106 [facility] Work Phone: Neutrophils (Bld) [#/Vol] 3.7 10*3/uL 2.0-7.7 [facility] Work Phone: Neutrophils/100 WBC (Bld) 57.9 % 47-70 [facility] Work Phone: [phone] Potassium [Moles/Vol] 3.4 mmol/L 3.5-5.1 [facility] Work Phone: Protein [Mass/Vol] 8.1 g/dL 6.4-8.2 [facility] Work Phone: [phone] Sodium [Moles/Vol] 138 mmol/L 136-145 [facility] Work Phone: [phone] Triglyceride [Mass/Vol] 119 mg/dL [facility] Work Phone: Comment on above: The drugs N-Acetylcy steine and Metamizole may falsely depress this assay.Serum Triglycerides Reference Interval Normal <150 mg/dL Borderline high 150 - 199 mg/dL High 200 - 499 mg/dL Very High > or = 500 mg/dL WBC (Bld) [#/Vol] 6.5 10*3/uL 4.4-11.0 [facility] Work Phone: Blood erythrocytes count (nu mber/volume)on 04-11-2021 RBC (Bld) [#/Vol] 4.42 10*6/uL 4.2-5.4 [facility] Work Phone: Blood hemoglobin measurement (mass/volume)on 04-11-2021 Hemoglobin (Bld) [Mass/Vol] 13.2 g/dL 12.0-15.0 [facility] Work Phone: Blood lymphocytes/100 leukoc yteson 04-11-2021 Lymphocytes/100 WBC (Bld) 29.1 % 19-41 [facility] Work Phone: Blood monocytes/100 leukocyt eson 04-11-2021 Monocytes/100 WBC (Bld) 10.4 % 0-10 [facility] Work Phone: Blood platelet mean volumeon 04-11-2021 Platelet mean volume (Bld) [Entitic vol] 9.5 fL 6.2-12.0 [facility] Work Phone: Determination of erythrocyte mean corpuscular volume (MCV)on 04-11-2021 MCV (RBC) [Entitic vol] 89.6 fL 81-99 [facility] Work Phone: Erythrocyte sedimentation ra odilia 04-11-2021 ESR (Bld) [Velocity] 23 mm/h 0-30 [facility] Work [facility]: Hematocrit Auto (Bld) [Volum e fraction]on 04-11-2021 Hematocrit (Bld) [Volume fraction] 39.6 % 37-47 [facility] Work Phone: Laboratory - Chemistry and C hemistry - challengeon 04-11-2021 ALP [Catalytic activity/Vol] 73 U/L 45-117 [facility] Work Phone: ALT [Catalytic activity/Vol] 25 U/L 13-56 [facility] Work Phone: CK [Catalytic activity/Vol] 36 U/L 26-192 [facility] Work Phone: CO2 [Moles/Vol] 26.0 mmol/L 21.0-32.0 [facility] Work Phone: Globulin (S) [Mass/Vol] 4.4 g/dL 2.2-4.2 [facility] Work Phone: Urea nitrogen/Creatinine [Mass ratio] 21.1 mg/mg 10-20 [facility] Work Phone: Laboratory - Hematology and Cell countson 04-11-2021 Erythrocyte distribution width (RBC) [Entitic vol] 51.7 fL 35.1-43.9 [facility] Work Phone: Erythrocyte distribution width (RBC) [Ratio] 15.9 % 11.6-14.6 [facility] Work Phone: Immature granulocytes/100 WBC (Bld) 0.300 % 0.0-0.9 [facility] Work Phone: Comment on above: IG% - Immature Granu locytes (promyelocytes, myelocytes and metamyelocytes) > 1% indicates that a LEFT SHIFT is Present. MCH (RBC) [Entitic mass] 29.9 pg 27.0-32.0 [facility] Work Phone: [phone] Nucleated RBC/100 WBC (Bld) [Ratio] 0 % 0-5 [facility] Work Phone: [phone] MCHC Auto (RBC) [Mass/Vol]on 04-11-2021 MCHC (RBC) [Mass/Vol] 33.3 g/dL 32-36 [facility] Work Phone: No Panel Informationon 04-11 Estimated GFR (MDRD) Amer 109 mL/min >60 [facility] Work Phone: Comment on above: GFR Calc Estimated GFR (MDRD) Non-Af Amer 90 mL/min >60 [facility] Work Phone: Comment on above: Non- GFR Calc Platelets bldon 04-11-2021 Platelets (Bld) [#/Vol] 328 10*3/uL 150-450 [facility] Work Phone: [phone] Serum or plasma C reactive p rotein measurement (mass/volume)on 04-11-2021 CRP [Mass/Vol] mg/L 0.0-3.0 [facility] Work Phone: [phone] Comment on above: C-Reactive Protein ( CRP) provides useful information for thediagnosis, therapy and monitoring of inflammatory processesand associated diseases. For the evaluation of Relative Riskfor Cardiovascular Disease, a High Sensitivity CRP (HSCRP)should be ordered. Serum or plasma albumin nancy urement (mass/volume)on 04-11-2021 Albumin [Mass/Vol] 3.7 g/dL 3.2-5.0 [facility] Work Phone: [phone] Serum or plasma albumin/glob ulin mass ratioon 04-11-2021 Albumin/Globulin [Mass ratio] 0.8 {ratio} 0.9-2.4 [facility] Work Phone: [phone] Serum or plasma calcium nancy urement (mass/volume)on 04-11-2021 Calcium [Mass/Vol] 9.5 mg/dL 8.5-10.1 [facility] Work Phone: [phone] Serum or plasma cholesterol in HDL measurement (mass/volume)on 04-11-2021 Cholesterol in HDL [Mass/Vol] 49 mg/dL [facility] Work Phone: Comment on above: The drugs N-Acetylcy steine and Metamizole may falsely depress this assay. Reference Range HDL <40 mg/dL Low HDL Cholesterol HDL >or= 60 mg/dL High HDL Cholesterol Serum or plasma cholesterol in VLDL measurement (mass/volume)on 04-11-2021 Cholesterol in VLDL [Mass/Vol] 24 mg/dL 5-40 [facility] Work Phone: [phone] Serum or plasma creatinine m easurement (mass/volume)on 04-11-2021 Creatinine [Mass/Vol] 0.66 mg/dL 0.55-1.02 [facility] Work Phone: Comment on above: The validity of the calculated GFR & GFRAA in patients over 70 years has not been determined. Clinical correlation is essential. Serum or plasma low density lipoprotein (LDL) cholesterol measurement (mass/volume)on 04-11-2021 Cholesterol in LDL [Mass/Vol] 93 mg/dL 0-130 [facility] Work Phone: [phone] Serum or plasma urea nitroge n measurement (mass/volume)on 04-11-2021 Urea nitrogen [Mass/Vol] 14 mg/dL 7-18 [facility] Work Phone: [phone] Thin prep Papanicolaou smear with manual screeningon 04-11-2021 Thin prep Papanicolaou smear with manual screening 18 U/L 15-37 [facility] Work Phone: [phone] Thin prep Papanicolaou smear with manual screening 6 5-15 [facility] Work Phone: Basophil percentageon 2021 Chloride [Moles/Vol] 106 mmol/L 98-107 [facility] Work Phone: Glucose [Mass/Vol] 127 mg/dL 74-106 [facility] Work Phone: Comment on above: Fasting Glucose resu lt greater than or equal to 126 mg/dL suggests DIABETES MELLITUS per A.D.A. criteria. Potassium [Moles/Vol] 3.6 mmol/L 3.5-5.1 [facility] Work Phone: Sodium [Moles/Vol] 138 mmol/L 136-145 [facility] Work Phone: Laboratory - Chemistry and C hemistry - challengeon 03-08-2021 CO2 [Moles/Vol] 26.0 mmol/L 21.0-32.0 [facility] Work Phone: Urea nitrogen/Creatinine [Mass ratio] 19.1 mg/mg 10-20 [facility] Work Phone: No Panel Informationon 03-08 Estimated GFR (MDRD) Amer 106 mL/min >60 [facility] Work Phone: Comment on above: GFR Calc Estimated GFR (MDRD) Non-Af Amer 87 mL/min >60 [facility] Work Phone: Comment on above: Non- GFR Calc Serum or plasma calcium nancy urement (mass/volume)on 03-08-2021 Calcium [Mass/Vol] 9.9 mg/dL 8.5-10.1 [facility] Work Phone: Serum or plasma creatinine m easurement (mass/volume)on 03-08-2021 Creatinine [Mass/Vol] 0.68 mg/dL 0.55-1.02 [facility] Work Phone: Comment on above: The validity of the calculated GFR & GFRAA in patients over 70 years has not been determined. Clinical correlation is essential. Serum or plasma urea nitroge n measurement (mass/volume)on 03-08-2021 Urea nitrogen [Mass/Vol] 13 mg/dL 7-18 [facility] Work Phone: Thin prep Papanicolaou smear with manual screeningon 03-08-2021 Thin prep Papanicolaou smear with manual screening 6 5-15 [facility] Work Phone: Lab Report: Comprehensive Ak tabolic Profilon 10-11-2016 Alanine aminotransferase (ALT) 37 U/L Invalid Interpretation Code 12-78 [facility] [employer] Work Phone: Albumin 3.5 g/dL Invalid Interpretation Code 3.4-5.0 [facility] [employer] Work Phone: Albumin/Globulin Ratio 0.8 {ratio} Low 0.9-2.4 [facility] [employer] Work Phone: Alkaline phosphatase (ALP) 47 U/L Invalid Interpretation Code 45-117 [facility] [employer] Work Phone: Anion gap 10 mmol/L Invalid Interpretation Code 5-15 [facility] [employer] Work Phone: Aspartate aminotransferase (AST) 26 U/L Invalid Interpretation Code 15-37 [facility] [employer] Work Phone: Bilirubin (total) 0.50 mg/dL Invalid Interpretation Code 0.20-1.00 [facility] [employer] Work Phone: BUN/Creatinine Ratio 23.0 RATIO High 10-20 [facility] [employer] Work Phone: Calcium 9.3 mg/dL Invalid Interpretation Code 8.5-10.1 [facility] [employer] Work Phone: Chloride 102 mmol/L Invalid Interpretation Code 98-107 [facility] [employer] Work Phone: CO2 26.0 mmol/L Invalid Interpretation Code 21.0-32.0 [facility] [employer] Work Phone: Creatinine 0.61 mg/dL Invalid Interpretation Code 0.55-1.02 [facility] [employer] Work Phone: eGFR (non-black) 100 mL/min/{1.73_m2} Invalid Interpretation Code >60 [facility] [employer] Work Phone: eGFR (non-black) 121 mL/min/{1.73_m2} Invalid Interpretation Code >60 [facility] [employer] Work Phone: Globulin 4.3 g/dL High 2.3-3.5 [facility] [employer] Work Phone: [phone] Glucose 87 mg/dL Invalid Interpretation Code 70-110 [facility] Work Phone: Potassium 3.7 mmol/L Invalid Interpretation Code 3.5-5.1 [facility] [employer] Work Phone: Protein 7.8 g/dL Invalid Interpretation Code 6.4-8.2 [facility] [employer] Work Phone: [phone] Sodium 138 mmol/L Invalid Interpretation Code 136-145 [facility] [employer] Work Phone: Urea nitrogen 14 mg/dL Invalid Interpretation Code 7-18 [facility] [employer] Work Phone: Lab Report: Thyroid Stim Hor shakira (TSH)on 10-11-2016 Thyroid stimulating hormone (TSH) 4.50 u[iU]/mL High 0.358-3.74 [facility] [employer] Work Phone: Lab Report: Vitamin D,25 Hyd roxyon 10-11-2016 vitamin D 25-hydroxy, serum 62.1 ng/mL Invalid Interpretation Code [facility] [employer] Work Phone: Office Visit: [facility] Documentation of current medications (procedure) Done Invalid Interpretation Code [facility] [employer] Work Phone: Fall risk assessment No Invalid Interpretation Code [facility] Work Phone: Tobacco smoking status NHIS Never Invalid Interpretation Code [facility] Work Phone: Tobacco use CPHS Never smoker Invalid Interpretation Code [facility] [employer] Work Phone: Office Visit: [facility] Breast Mammogram screening Abnormal Left Invalid Interpretation Code [facility] [employer] Work Phone: Lab Report: PTH,INTACTon Parathyrin.intact mass conc 74 pg/mL High 14-72 [facility] [employer] Work Phone: Lab Report: Basic Metabolic Profile (BMP)on 08-24-2015 Anion gap molar conc 8 mmol/L 5-15 [facility] [employer] Work Phone: Calcium mass conc 9.2 mg/dL 8.5-10.1 [facility] [employer] Work Phone: Chloride molar conc 106 mmol/L 98-107 [facility] Work Phone: CO2 ppres (BldV) 26.0 mmol/L 21.0-32.0 [facility] Work Phone: Creatinine mass conc 0.68 mg/dL 0.55-1.20 [facility] Work Phone: EST GFR - AA 108 mL/min >60 [facility] Work Phone: GFR/1.73 sq M predicted among non-blacks MDRD vol rate/area (S/P/Bld) 90 mL/min/{1.73_m2} >60 [facility] Work Phone: Glucose mass conc 90 mg/dL 70-110 [facility] Work Phone: Potassium molar conc 3.7 mmol/L 3.5-5.1 [facility] Work Phone: Sodium molar conc 140 mmol/L 136-145 [facility] Work Phone: Urea nitrogen mass conc 15 mg/dL 7-18 [facility] [employer] Work Phone: Urea nitrogen/Creatinine mass ratio 22.2 RATIO High 10-20 [facility] Work Phone: Rx Refill: eRx Request for P RAVASTATIN SODIUM 40 MG TABon 08-21-2015 Sodium molar conc [id number]`PRAVASTAT IN SODIUM 40 MG TAB```30 Tablet`30`TAKE ONE TABLET BY MOUTH DAILY``7`0` 5`No date sent`[facility]*`[id number]` [id number]``PRAVAST ATIN SODIUM 40 MG TAB Quantity: 30 Tablet Instructions: TAKE ONE TABLET BY MOUTH DAILY [employer] [facility] Work Phone: Lab Report: Aldolaseon 08-05 Aldolase [Enzymatic activity/volume] in Serum 4.0 U/L Invalid Interpretation Code 3.3-10.3 [facility] Work Phone: [phone] Lab Report: CBC W/Diff, Auto matedon 08-04-2015 Basophils/100 leukocytes 1.2 % High 0-1 [facility] Work Phone: [phone] Basophils/100 WBC (Bld) 1.2 % High 0-1 [facility] Work Phone: [phone] Erythrocyte distribution width Ratio (RBC) 55.1 fL High 35.1-43.9 [facility] Work Phone: [phone] Erythrocyte distribution width Ratio (RBC) 16.8 % High 11.6-14.6 [facility] Work Phone: [phone] Erythrocytes (RBC) 3.95 10*6/uL Low 4.2-5.4 [facility] Work Phone: [phone] Monocytes/100 leukocytes 18.1 % High 0-10 [facility] Work Phone: [phone] Monocytes/100 WBC (Bld) 18.1 % High 0-10 [facility] Work Phone: [phone] RBC #/vol (Bld) 3.95 10*6/uL Low 4.2-5.4 [facility] [employer] Work Phone: [phone] RDW-CA 16.8 % High 11.6-14.6 [facility] Work Phone: [phone] red blood cell distribution width, size density 55.1 fL High 35.1-43.9 [facility] Work Phone: [phone] WBC #/vol (Bld) 4.1 10*3/uL Low 4.4-11.0 [facility] Work Phone: [phone] WBC (Leukocytes) 4.1 10*3/uL Low 4.4-11.0 [facility] Teresa [facility] [employer] Work Phone: [phone] Eosinophils/100 leukocytes 2.0 % Invalid Interpretation Code 0-5 [facility] Work Phone: [phone] Eosinophils/100 WBC (Bld) 2.0 % 0-5 [facility] [employer] Work Phone: [phone] Hematocrit (HCT) 37.0 % Invalid Interpretation Code 37-47 [facility] [employer] Work Phone: [phone] Hematocrit Volume Fraction (Bld) 37.0 % 37-47 [facility] [employer] Work Phone: [phone] Hemoglobin mass conc (Bld) 12.4 g/dL Invalid Interpretation Code 12.0-15.0 [facility] [employer] Work Phone: [phone] Immature granulocytes #/vol (Bld) 0.500 % 0.0-0.9 [facility] [employer] Work Phone: [phone] immature granulocytes, percentage of total cells, blood 0.500 % Invalid Interpretation Code 0.0-0.9 [facility] [employer] Work Phone: [phone] Lymphocytes 0.86 X10 3/UL Invalid Interpretation Code 0.83-4.51 [facility] [employer] Work Phone: [phone] Lymphocytes #/vol (Bld) 0.86 X10 3/UL 0.83-4.51 [facility] [employer] Work Phone: [phone] Lymphocytes/100 leukocytes 21.1 % Invalid Interpretation Code 19-41 [facility] [employer] Work Phone: [phone] Lymphocytes/100 WBC (Bld) 21.1 % 19-41 [facility] [employer] Work Phone: [phone] MCH 31.4 pg Invalid Interpretation Code 27.0-32.0 [facility] [employer] Work Phone: [phone] MCH Entitic mass (RBC) 31.4 pg 27.0-32.0 [facility] [employer] Work Phone: [phone] MCHC 33.5 G/GL Invalid Interpretation Code 32-36 [facility] [employer] Work Phone: [phone] MCHC mass conc (RBC) 33.5 G/GL 32-36 [facility] [employer] Work Phone: [phone] MCV 93.7 fL Invalid Interpretation Code 81-99 [facility] [employer] Work Phone: [phone] MCV Entitic volume (RBC) 93.7 fL 81-99 [facility] [employer] Work Phone: [phone] neutrophil count, blood 2.3 X10 3/UL Invalid Interpretation Code 2.0-7.7 [facility] Work Phone: [phone] Neutrophils #/vol (Bld) 2.3 X10 3/UL 2.0-7.7 [facility] Work Phone: [phone] Neutrophils/100 leukocytes 57.1 % Invalid Interpretation Code 47-70 [facility] Work Phone: [phone] Neutrophils/100 WBC (Bld) 57.1 % 47-70 [facility] Work Phone: [phone] Platelet mean volume Entitic volume (Bld) 9.1 fL 6.2-12.0 [facility] Work Phone: [phone] Platelets 281 10*3/mm3 Invalid Interpretation Code 150-450 [facility] Work Phone: [phone] Platelets #/vol (Bld) 281 10*3/mm3 150-450 [facility] Work Phone: [phone] PMV by Kojo 9.1 fL Invalid Interpretation Code 6.2-12.0 [facility] Work Phone: [phone] Lab Report: CPK Total, Creat ine Kinaseon 08-04-2015 CK enzyme act/vol 50 U/L Invalid Interpretation Code 26-192 [facility] Work Phone: [phone] Lab Report: Comprehensive Me tabolic Profilon 08-04-2015 Albumin mass conc 3.5 g/dL 3.4-5.0 [facility] Work Phone: [phone] Albumin/Globulin mass ratio 0.8 {ratio} Low 0.9-2.4 [facility] Work Phone: [phone] ALP enzyme act/vol (Bld) 69 U/L 50-136 [facility] Work Phone: [phone] ALT enzyme act/vol 36 U/L 12-78 [facility] Work Phone: [phone] AST enzyme act/vol 27 U/L 15-37 [facility] Work Phone: [phone] Bilirubin mass conc 0.50 mg/dL 0.20-1.00 [facility] S [facility] Work Phone: Globulin mass conc (S) 4.4 g/dL High 2.3-3.5 [facility] Work Phone: Protein mass conc 7.9 g/dL 6.4-8.2 [facility] Teresa gical [employer] Work Phone: Lab Report: Vitamin D,25 Hyd roxyon 04-23-2015 Vitamin D 25-OH 57.5 ng/mL [facility] [employer] Work Phone: Lab Report: Thyroid Stim Hor shakira (TSH)on 04-22-2015 Thyrotropin Qn 0.34 u[iU]/mL Low 0.358-3.74 [facility] [employer] Work Phone: Office Visiton 12-02-2014 Documentation of current medications (procedure) Done Invalid Interpretation Code [facility] [employer] Work Phone: Protein mass conc Done [facility] [employer] Work Phone: Tobacco smoking status ALIS Never Invalid Interpretation Code [facility] [employer] Work Phone: Tobacco smoking status RUST Never smoker [facility] [employer] Work Phone: Tobacco use [facility] Never smoker Invalid Interpretation Code [facility] [employer] Work Phone: Lab Report: Lipid Profileon 11-26-2014 Cholesterol in HDL mass conc 50 mg/dL Invalid Interpretation Code [facility] [employer] Work Phone: Cholesterol in LDL mass conc 69 mg/dL Invalid Interpretation Code 0-130 [facility] [employer] Work Phone: Cholesterol mass conc 134 mg/dL Invalid Interpretation Code 200 [facility] [employer] Work Phone: Lipoprotein.pre-beta mass conc 15 mg/dL Invalid Interpretation Code 5-40 [facility] [employer] Work Phone: Triglyceride mass conc 76 mg/dL Invalid Interpretation Code [facility] [employer] Work Phone: Lab Report: CBC W/Diff, Auto matedon 10-05-2014 Absolute Neut 3.7 X10 3/UL 2.0-7.7 [facility] Work Phone: Absolute Neutrophil count 3.7 X10 3/UL Invalid Interpretation Code 2.0-7.7 [facility] Work Phone: Lymphocytes 0.78 X10 3/UL [facility]: Lymphocytes #/vol (Bld) 0.78 X10 3/UL Low 0.83-4.51 [facility] Work Phone: Lab Report: CBC W/Diff, Auto matedon 07-10-2014 GE use only - for [employer] import when terms are not otherwise specified SLIDE SCANNED Invalid Interpretation Code [facility] Work Phone: SMEAR COMMENT SLIDE SCANNED [facility] Work Phone: Office Visit: HTN follow upo n 05-04-2014 Protein mass conc yes [facility] Work Phone: Smoking cessation education (procedure) yes Invalid Interpretation Code [facility] Work Phone: Office Visit: HTN follow up, PAPon 12-06-2011 General categories Cyto stain Interp (Cervical or vaginal smear or scraping) Normal Invalid Interpretation Code [facility] Work Phone: COVID-19 virus antigen assay SARS-CoV-2 (COVID-19) Ag IA.rapid Ql (Resp) [facility] Work Phone: Vital Signs Date Time Vital Sign Value Performing Clinician Facility 09-26-2024 08:10-0400 Body height 152.[address] Catia Christian DO Work Phone: [facility] 09-26-2024 08:10-0400 Body mass index (BMI) [Ratio] 26.7 kg/m2 Dr. Catia Christian DO Work Phone: [facility] 09-26-2024 08:10-0400 Body temperature 97.2 [degF] Dr. Catia Christian DO Work Phone: [facility] 09-26-2024 08:10-0400 Body weight 62.[address] Catia Christian DO Work Phone: [facility] 09-26-2024 08:10-0400 Diastolic blood pressure 75 mm[Hg] Dr. Catia Christian DO Work Phone: [facility] 09-26-2024 08:10-0400 Heart rate 66 /min Dr. Catia Christian DO Work Phone: [facility] 09-26-2024 08:10-0400 Respiratory rate 16 /min Dr. Catia Christian DO Work Phone: [facility] 09-26-2024 08:10-0400 SaO2% (BldA) [Mass fraction] 95 % Dr. Catia Christian DO Work Phone: [facility] 09-26-2024 08:10-0400 Systolic blood pressure 162 mm[Hg] Dr. Catia Christian DO Work Phone: [facility] 09-24-2024 11:05-0400 Body temperature 97.4 [degF] Dr. Catia Christian DO Work Phone: [facility] 09-24-2024 11:05-0400 Diastolic blood pressure 72 mm[Hg] Dr. Catia Christian DO Work Phone: [facility] 09-24-2024 11:05-0400 Heart rate 57 /min Dr. Catia Christian DO Work Phone: [facility] 09-24-2024 11:05-0400 Respiratory rate 16 /min Dr. Catia Christian DO Work Phone: [facility] 09-24-2024 11:05-0400 Systolic blood pressure 146 mm[Hg] Dr. Catia Christian DO Work Phone: [facility] 09-24-2024 08:09-0400 Body height 152.[address] Catia Christian DO Work Phone: [facility] 09-24-2024 08:09-0400 SaO2% (BldA) [Mass fraction] 96 % Dr. Catia Christian DO Work Phone: [facility] 08-01-2024 08:15-0400 Body height 152.[address] Catia Christian DO Work Phone: [facility] 08-01-2024 08:15-0400 Body mass index (BMI) [Ratio] 26.5 kg/m2 Dr. Catia Christian DO Work Phone: [facility] 08-01-2024 08:15-0400 Body temperature 96.3 [degF] Dr. Catia Christian DO Work Phone: [facility] 08-01-2024 08:15-0400 Body weight 61.[address] Catia Christian DO Work Phone: [facility] 08-01-2024 08:15-0400 Diastolic blood pressure 78 mm[Hg] Dr. Catia Christian DO Work Phone: [facility] 08-01-2024 08:15-0400 Heart rate 76 /min Dr. Catia Christian DO Work Phone: [facility] 08-01-2024 08:15-0400 Respiratory rate 16 /min Dr. Catia Christian DO Work Phone: [facility] 08-01-2024 08:15-0400 SaO2% (BldA) [Mass fraction] 96 % Dr. Catia Christian DO Work Phone: [facility] 08-01-2024 08:15-0400 Systolic blood pressure 164 mm[Hg] Dr. Catia Christian DO Work Phone: [facility] 07-30-2024 08:04-0400 Body height 152.[address] Catia Christian DO Work Phone: [facility] 07-30-2024 08:04-0400 Body mass index (BMI) [Ratio] 26.5 kg/m2 Dr. Catia Christian DO Work Phone: [facility] 07-30-2024 08:04-0400 Body temperature 96.5 [degF] Dr. Catia Christian DO Work Phone: [facility] 07-30-2024 08:04-0400 Body weight 61.[address] Catia Christian DO Work Phone: [facility] 07-30-2024 08:04-0400 Diastolic blood pressure 76 mm[Hg] Dr. Catia Christian DO Work Phone: [facility] 07-30-2024 08:04-0400 Heart rate 76 /min Dr. Catia Christian DO Work Phone: [facility] 07-30-2024 08:04-0400 Respiratory rate 18 /min Dr. Catia Christian DO Work Phone: [facility] 07-30-2024 08:04-0400 SaO2% (BldA) [Mass fraction] 95 % Dr. Catia Christian DO Work Phone: [facility] 07-30-2024 08:04-0400 Systolic blood pressure 150 mm[Hg] Dr. Catia Christian DO Work Phone: [facility] 06-04-2024 11:20-0400 Body temperature 96.6 [degF] Dr. Catia Christian DO Work Phone: [facility] 06-04-2024 11:20-0400 Diastolic blood pressure 70 mm[Hg] Dr. Catia Christian DO Work Phone: [facility] 06-04-2024 11:20-0400 Heart rate 56 /min Dr. Catia Christian DO Work Phone: [facility] 06-04-2024 11:20-0400 Respiratory rate 16 /min Dr. Catia Christian DO Work Phone: [facility] 06-04-2024 11:20-0400 Systolic blood pressure 143 mm[Hg] Dr. Catia Christian DO Work Phone: [facility] 06-04-2024 08:20-0400 Body height 152.[address] Catia Christian DO Work Phone: [facility] 06-04-2024 08:20-0400 Body mass index (BMI) [Ratio] 27.5 kg/m2 Dr. Catia Christian DO Work Phone: [facility] 06-04-2024 08:20-0400 Body weight 63.[address] Catia Christian DO Work Phone: [facility] 06-04-2024 08:20-0400 SaO2% (BldA) [Mass fraction] 96 % Dr. Catia Christian DO Work Phone: [facility] 06-02-2024 08:27-0400 Body mass index (BMI) [Ratio] 25.5 kg/m2 Dr. Catia Christian DO Work Phone: [facility] 06-02-2024 08:27-0400 Body temperature 96.9 [degF] Dr. Catia Christian DO Work Phone: [facility] 06-02-2024 08:27-0400 Body weight 59.[address] Catia Christian DO Work Phone: [facility] 06-02-2024 08:27-0400 Diastolic blood pressure 70 mm[Hg] Dr. Catia Christian DO Work Phone: [facility] 06-02-2024 08:27-0400 Heart rate 73 /min Dr. Catia Christian DO Work Phone: [facility] 06-02-2024 08:27-0400 Respiratory rate 16 /min Dr. Catia Christian DO Work Phone: [facility] 06-02-2024 08:27-0400 SaO2% (BldA) [Mass fraction] 95 % Dr. Catia Christian DO Work Phone: [facility] 06-02-2024 08:27-0400 Systolic blood pressure 156 mm[Hg] Dr. Catia Christian DO Work Phone: [facility] 04-11-2024 08:47-0500 Body height 152.[address] Catia Christian DO Work Phone: [facility] 04-11-2024 08:47-0500 Body mass index (BMI) [Ratio] 27.5 kg/m2 Dr. Catia Christian DO Work Phone: [facility] 04-11-2024 08:47-0500 Body temperature 96.8 [degF] Dr. Catia Christian DO Work Phone: [facility] 04-11-2024 08:47-0500 Body weight 63.[address] Catia Christian DO Work Phone: [facility] 04-11-2024 08:47-0500 Diastolic blood pressure 72 mm[Hg] Dr. Catia Christian DO Work Phone: [facility] 04-11-2024 08:47-0500 Heart rate 80 /min Dr. Catia Christian DO Work Phone: [facility] 04-11-2024 08:47-0500 Respiratory rate 16 /min Dr. Catia Christian DO Work Phone: [facility] 04-11-2024 08:47-0500 SaO2% (BldA) [Mass fraction] 96 % Dr. Catia Christian DO Work Phone: [facility] 04-11-2024 08:47-0500 Systolic blood pressure 158 mm[Hg] Dr. Catia Christian DO Work Phone: [facility] 04-09-2024 08:41-0500 Body mass index (BMI) [Ratio] 27.5 kg/m2 Dr. Catia Christian DO Work Phone: [facility] 04-09-2024 08:41-0500 Body temperature 97 [degF] Dr. Catia Christian DO Work Phone: [facility] 04-09-2024 08:41-0500 Body weight 63.[address] Catia Christian DO Work Phone: [facility] 04-09-2024 08:41-0500 Diastolic blood pressure 79 mm[Hg] Dr. Catia Christian DO Work Phone: [facility] 04-09-2024 08:41-0500 Heart rate 69 /min Dr. Catia Christian DO Work Phone: [facility] 04-09-2024 08:41-0500 Respiratory rate 14 /min Dr. Catia Christian DO Work Phone: [facility] 04-09-2024 08:41-0500 SaO2% (BldA) [Mass fraction] 96 % Dr. Catia Christian DO Work Phone: [facility] 04-09-2024 08:41-0500 Systolic blood pressure 145 mm[Hg] Dr. Catia Christian DO Work Phone: [facility] 02-15-2024 11:48-0500 Body temperature 96.7 [degF] Dr. Caita Christian DO Work Phone: [facility] 02-15-2024 11:48-0500 Diastolic blood pressure 86 mm[Hg] Dr. Catia Christian DO Work Phone: [facility] 02-15-2024 11:48-0500 Heart rate 70 /min Dr. Catia Christian DO Work Phone: [facility] 02-15-2024 11:48-0500 Respiratory rate 16 /min Dr. Catia Christian DO Work Phone: [facility] 02-15-2024 11:48-0500 SaO2% (BldA) [Mass fraction] 92 % Dr. Catia Christian DO Work Phone: [facility] 02-15-2024 11:48-0500 Systolic blood pressure 161 mm[Hg] Dr. Catia Christian DO Work Phone: [facility] 02-15-2024 08:30-0500 Body mass index (BMI) [Ratio] 27.6 kg/m2 Dr. Catia Christian DO Work Phone: [facility] 02-15-2024 08:30-0500 Body weight 64.[address] Catia Christian DO Work Phone: [facility] 02-13-2024 08:24-0500 Body temperature 97.3 [degF] Dr. Catia Christian DO Work Phone: [facility] 02-13-2024 08:24-0500 Diastolic blood pressure 77 mm[Hg] Dr. Catia Christian DO Work Phone: [facility] 02-13-2024 08:24-0500 Heart rate 75 /min Dr. Catia Christian DO Work Phone: [facility] 02-13-2024 08:24-0500 Respiratory rate 16 /min Dr. Catia Christian DO Work Phone: [facility] 02-13-2024 08:24-0500 SaO2% (BldA) [Mass fraction] 96 % Dr. Catia Christian DO Work Phone: [facility] 02-13-2024 08:24-0500 Systolic blood pressure 150 mm[Hg] Dr. Catia Christian DO Work Phone: [facility] 05-10-2023 08:35-0400 Body height 152.4 cm [facility] 05-10-2023 08:35-0400 Body mass index (BMI) [Ratio] 27.7 kg/m2 [facility] 05-10-2023 08:35-0400 Body temperature 97.6 [degF] [facility] 05-10-2023 08:35-0400 Body weight 64.41 kg [facility] 05-10-2023 08:35-0400 Diastolic blood pressure 79 mm[Hg] [facility] 05-10-2023 08:35-0400 Heart rate 77 /min [facility] 05-10-2023 08:35-0400 Respiratory rate 16 /min [facility] 05-10-2023 08:35-0400 SaO2% (BldA) [Mass fraction] 96 % [facility] 05-10-2023 08:35-0400 Systolic blood pressure 175 mm[Hg] [facility] 05-09-2023 08:15-0400 Body height 152.4 cm [facility] 05-09-2023 08:15-0400 Body mass index (BMI) [Ratio] 26.9 kg/m2 [facility] 05-09-2023 08:15-0400 Body temperature 96.6 [degF] [facility] 05-09-2023 08:15-0400 Body weight 62.59 kg [facility] 05-09-2023 08:15-0400 Diastolic blood pressure 78 mm[Hg] [facility] 05-09-2023 08:15-0400 Heart rate 76 /min [facility] 05-09-2023 08:15-0400 Respiratory rate 16 /min [facility] 05-09-2023 08:15-0400 SaO2% (BldA) [Mass fraction] 95 % [facility] 05-09-2023 08:15-0400 Systolic blood pressure 150 mm[Hg] [facility] 04-06-2023 20:42-0500 Body temperature 97.6 [degF] [facility] 04-06-2023 20:42-0500 Diastolic blood pressure 109 mm[Hg] [facility] 04-06-2023 20:42-0500 Heart rate 111 /min [facility] 04-06-2023 20:42-0500 Respiratory rate 18 /min [facility] 04-06-2023 20:42-0500 SaO2% (BldA) [Mass fraction] 92 % [facility] 04-06-2023 20:42-0500 Systolic blood pressure 180 mm[Hg] [facility] 04-06-2023 16:10-0500 Body height 152.4 cm [facility] 04-06-2023 16:10-0500 Body mass index (BMI) [Ratio] 30.7 kg/m2 [facility] 04-06-2023 16:10-0500 Body weight 71.5 kg [facility] 03-23-2023 12:56-0500 Body height 152.4 cm [facility] 03-23-2023 12:56-0500 Body mass index (BMI) [Ratio] 29.2 kg/m2 [facility] 03-23-2023 12:56-0500 Body temperature 97.4 [degF] [facility] 03-23-2023 12:56-0500 Body weight 68.03 kg [facility] 03-23-2023 12:56-0500 Diastolic blood pressure 83 mm[Hg] [facility] 03-23-2023 12:56-0500 Heart rate 72 /min [facility] 03-23-2023 12:56-0500 Respiratory rate 16 /min [facility] 03-23-2023 12:56-0500 SaO2% (BldA) [Mass fraction] 95 % [facility] 03-23-2023 12:56-0500 Systolic blood pressure 161 mm[Hg] [facility] 03-09-2023 08:46-0500 Body temperature 97.6 [degF] [facility] 03-09-2023 08:46-0500 Diastolic blood pressure 73 mm[Hg] [facility] 03-09-2023 08:46-0500 Heart rate 64 /min [facility] 03-09-2023 08:46-0500 Respiratory rate 16 /min [facility] 03-09-2023 08:46-0500 Systolic blood pressure 132 mm[Hg] [facility] 03-08-2023 08:21-0500 Body mass index (BMI) [Ratio] 29.2 kg/m2 [facility] 03-08-2023 08:21-0500 Body temperature 97.2 [degF] [facility] 03-08-2023 08:21-0500 Body weight 68.03 kg [facility] 03-08-2023 08:21-0500 Diastolic blood pressure 74 mm[Hg] [facility] 03-08-2023 08:21-0500 Heart rate 69 /min [facility] 03-08-2023 08:21-0500 Respiratory rate 16 /min [facility] 03-08-2023 08:21-0500 SaO2% (BldA) [Mass fraction] 94 % [facility] 03-08-2023 08:21-0500 Systolic blood pressure 146 mm[Hg] [facility] 01-15-2023 08:50-0500 Body height 152.4 cm [facility] 01-15-2023 08:50-0500 Body mass index (BMI) [Ratio] 29.2 kg/m2 [facility] 01-15-2023 08:50-0500 Body temperature 97.3 [degF] [facility] 01-15-2023 08:50-0500 Body weight 68.03 kg [facility] 01-15-2023 08:50-0500 Diastolic blood pressure 79 mm[Hg] [facility] 01-15-2023 08:50-0500 Heart rate 89 /min [facility] 01-15-2023 08:50-0500 Respiratory rate 18 /min [facility] 01-15-2023 08:50-0500 Systolic blood pressure 142 mm[Hg] [facility] 01-11-2023 08:27-0500 Body height 152.4 cm [facility] 01-11-2023 08:27-0500 Body temperature 96.4 [degF] [facility] 01-11-2023 08:27-0500 Diastolic blood pressure 71 mm[Hg] [facility] 01-11-2023 08:27-0500 Heart rate 68 /min [facility] 01-11-2023 08:27-0500 Respiratory rate 16 /min [facility] 01-11-2023 08:27-0500 SaO2% (BldA) [Mass fraction] 95 % [facility] 01-11-2023 08:27-0500 Systolic blood pressure 154 mm[Hg] [facility] 11-09-2022 08:24-0400 Body height 152.4 cm [facility] 11-09-2022 08:24-0400 Body temperature 97.7 [degF] [facility] 11-09-2022 08:24-0400 Diastolic blood pressure 80 mm[Hg] [facility] 11-09-2022 08:24-0400 Heart rate 75 /min [facility] 11-09-2022 08:24-0400 Respiratory rate 16 /min [facility] 11-09-2022 08:24-0400 Systolic blood pressure 141 mm[Hg] [facility] 11-08-2022 08:23-0400 Body height 152.4 cm [facility] 11-08-2022 08:23-0400 Body mass index (BMI) [Ratio] 27.3 kg/m2 [facility] 11-08-2022 08:23-0400 Body weight 63.5 kg [facility] 09-22-2022 13:28-0400 Body temperature 97.3 [degF] [facility] 09-22-2022 13:28-0400 Diastolic blood pressure 78 mm[Hg] [facility] 09-22-2022 13:28-0400 Heart rate 72 /min [facility] 09-22-2022 13:28-0400 Respiratory rate 16 /min [facility] 09-22-2022 13:28-0400 SaO2% (BldA) [Mass fraction] 96 % [facility] 09-22-2022 13:28-0400 Systolic blood pressure 151 mm[Hg] [facility] 09-07-2022 08:02-0400 Body height 152.[address] Catia Christian Work Phone: [facility] 09-07-2022 08:02-0400 Body temperature 97.2 [degF] Dr. Catia Christian Work Phone: [facility] 09-07-2022 08:02-0400 Diastolic blood pressure 84 mm[Hg] Dr. Catia Christian Work Phone: [facility] 09-07-2022 08:02-0400 Heart rate 71 /min Dr. Catia Christian Work Phone: [facility] 09-07-2022 08:02-0400 Respiratory rate 18 /min Dr. Catia Christian Work Phone: [facility] 09-07-2022 08:02-0400 SaO2% (BldA) [Mass fraction] 96 % Dr. Catia Christian Work Phone: [facility] 09-07-2022 08:02-0400 Systolic blood pressure 168 mm[Hg] Dr. Catia Christian Work Phone: [facility] 09-06-2022 11:42-0400 Body temperature 97 [degF] Dr. Catia Christian Work Phone: [facility] 09-06-2022 11:42-0400 Diastolic blood pressure 78 mm[Hg] Dr. Catia Christian Work Phone: [facility] 09-06-2022 11:42-0400 Heart rate 62 /min Dr. Catia Christian Work Phone: [facility] 09-06-2022 11:42-0400 Systolic blood pressure 151 mm[Hg] Dr. Catia Christian Work Phone: [facility] 09-06-2022 08:20-0400 Body height 152.[address] Catia Christian Work Phone: [facility] 09-06-2022 08:20-0400 Body mass index (BMI) [Ratio] 28.3 kg/m2 Dr. Catia Christian Work Phone: [facility] 09-06-2022 08:20-0400 Body weight 65.[address] Catia Christian Work Phone: [facility] 09-06-2022 08:20-0400 Respiratory rate 18 /min Dr. Catia Christian Work Phone: [facility] 09-06-2022 08:20-0400 SaO2% (BldA) [Mass fraction] 95 % Dr. Catia Christian Work Phone: [facility] 07-13-2022 08:14-0400 Body height 152.[address] Catia Christian Work Phone: [facility] 07-13-2022 08:14-0400 Body mass index (BMI) [Ratio] 26.5 kg/m2 Dr. Catia Christian Work Phone: [facility] 07-13-2022 08:14-0400 Body temperature 97.4 [degF] Dr. Catia Christian Work Phone: [facility] 07-13-2022 08:14-0400 Body weight 61.[address] Catia Christian Work Phone: [facility] 07-13-2022 08:14-0400 Diastolic blood pressure 69 mm[Hg] Dr. Catia Christian Work Phone: [facility] 07-13-2022 08:14-0400 Heart rate 72 /min Dr. Catia Christian Work Phone: [facility] 07-13-2022 08:14-0400 Respiratory rate 18 /min Dr. Catia Christian Work Phone: [facility] 07-13-2022 08:14-0400 SaO2% (BldA) [Mass fraction] 97 % Dr. Catia Christian Work Phone: [facility] 07-13-2022 08:14-0400 Systolic blood pressure 152 mm[Hg] Dr. Catia Christian Work Phone: [facility] 07-12-2022 08:05-0400 Body height 152.[address] Catia Christian Work Phone: [facility] 06-07-2023 08:05-0400 Body mass index (BMI) [Ratio] 26.5 kg/m2 Dr. Catia Christian Work Phone: [facility] 07-12-2022 08:05-0400 Body temperature 97.6 [degF] Dr. Catia Christian Work Phone: [facility] 07-12-2022 08:05-0400 Body weight 61.[address] Catia Christian Work Phone: [facility] 07-12-2022 08:05-0400 Diastolic blood pressure 74 mm[Hg] Dr. Catia Christian Work Phone: [facility] 07-12-2022 08:05-0400 Heart rate 69 /min Dr. Catia Christian Work Phone: [facility] 07-12-2022 08:05-0400 Respiratory rate 18 /min Dr. Catia Christian Work Phone: [facility] 07-12-2022 08:05-0400 SaO2% (BldA) [Mass fraction] 96 % Dr. Catia Christian Work Phone: [facility] 07-12-2022 08:05-0400 Systolic blood pressure 144 mm[Hg] Dr. Catia Christian Work Phone: [facility] 05-25-2022 09:29-0400 Body height 152.[address] Catia Christian Work Phone: [facility] 05-25-2022 09:29-0400 Body mass index (BMI) [Ratio] 28.1 kg/m2 Dr. Catia Christian Work Phone: [facility] 05-25-2022 09:29-0400 Body temperature 93.5 [degF] Dr. Catia Christian Work Phone: [facility] 05-25-2022 09:29-0400 Body weight 65.[address] Catia Christian Work Phone: [facility] 05-25-2022 09:29-0400 Diastolic blood pressure 89 mm[Hg] Dr. Catia Christian Work Phone: [facility] 05-25-2022 09:29-0400 Heart rate 71 /min Dr. Catia Christian Work Phone: [facility] 05-25-2022 09:29-0400 Respiratory rate 16 /min Dr. Catia Christian Work Phone: [facility] 05-25-2022 09:29-0400 SaO2% (BldA) [Mass fraction] 94 % Dr. Catia Christian Work Phone: [facility] 05-25-2022 09:29-0400 Systolic blood pressure 161 mm[Hg] Dr. Catia Christian Work Phone: [facility] 05-18-2022 08:24-0400 Body height 152.[address] Catia Christian Work Phone: [facility] 05-18-2022 08:24-0400 Body mass index (BMI) [Ratio] 26.5 kg/m2 Dr. Catia Christian Work Phone: [facility] 05-18-2022 08:24-0400 Body temperature 97.2 [degF] Dr. Catia Christian Work Phone: [facility] 05-18-2022 08:24-0400 Body weight 61.[address] Catia Christian Work Phone: [facility] 05-18-2022 08:24-0400 Diastolic blood pressure 73 mm[Hg] Dr. Catia Christian Work Phone: [facility] 05-18-2022 08:24-0400 Heart rate 68 /min Dr. Catia Christian Work Phone: [facility] 05-18-2022 08:24-0400 Respiratory rate 16 /min Dr. Catia Christian Work Phone: [facility] 05-18-2022 08:24-0400 SaO2% (BldA) [Mass fraction] 95 % Dr. Catia Christian Work Phone: [facility] 05-18-2022 08:24-0400 Systolic blood pressure 147 mm[Hg] Dr. Catia Christian Work Phone: [facility] 05-17-2022 08:16-0400 Body temperature 97.1 [degF] Dr. Catia Christian Work Phone: [facility] 05-17-2022 08:16-0400 Diastolic blood pressure 74 mm[Hg] Dr. Catia Christian Work Phone: [facility] 05-17-2022 08:16-0400 Heart rate 68 /min Dr. Catia Christian Work Phone: [facility] 05-17-2022 08:16-0400 Respiratory rate 16 /min Dr. Catia Christian Work Phone: [facility] 05-17-2022 08:16-0400 SaO2% (BldA) [Mass fraction] 97 % Dr. Catia Christian Work Phone: [facility] 05-17-2022 08:16-0400 Systolic blood pressure 140 mm[Hg] Dr. Catia Christian Work Phone: [facility] 03-24-2022 12:39-0500 Body temperature 97.5 [degF] Dr. Catia Christian Work Phone: [facility] 03-24-2022 12:39-0500 Diastolic blood pressure 75 mm[Hg] Dr. Catia Christian Work Phone: [facility] 03-24-2022 12:39-0500 Heart rate 66 /min Dr. Catia Christian Work Phone: [facility] 03-24-2022 12:39-0500 Respiratory rate 16 /min Dr. Catia Christian Work Phone: [facility] 03-24-2022 12:39-0500 SaO2% (BldA) [Mass fraction] 94 % Dr. Catia Christian Work Phone: [facility] 03-24-2022 12:39-0500 Systolic blood pressure 150 mm[Hg] Dr. Catia Christian Work Phone: [facility] 03-24-2022 08:46-0500 Body height 152.[address] Catia Christian Work Phone: [facility] 03-24-2022 08:46-0500 Body mass index (BMI) [Ratio] 26.9 kg/m2 Dr. Catia Christian Work Phone: [facility] 03-24-2022 08:46-0500 Body weight 62.[address] Catia Christian Work Phone: [facility] 03-23-2022 11:58-0500 Body temperature 97.4 [degF] Dr. Catia Christian Work Phone: [facility] 03-23-2022 11:58-0500 Diastolic blood pressure 71 mm[Hg] Dr. Catia Christian Work Phone: [facility] 03-23-2022 11:58-0500 Heart rate 59 /min Dr. Catia Christian Work Phone: [facility] 03-23-2022 11:58-0500 Respiratory rate 16 /min Dr. Catia Christian Work Phone: [facility] 03-23-2022 11:58-0500 SaO2% (BldA) [Mass fraction] 96 % Dr. Catia Christian Work Phone: [facility] 03-23-2022 11:58-0500 Systolic blood pressure 145 mm[Hg] Dr. Catia Christian Work Phone: [facility] 01-30-2022 13:38-0500 Body temperature 97.7 [degF] Dr. Catia Christian Work Phone: [facility] 01-30-2022 13:38-0500 Diastolic blood pressure 86 mm[Hg] Dr. Catia Christian Work Phone: [facility] 01-30-2022 13:38-0500 Heart rate 68 /min Dr. Catia Christian Work Phone: [facility] 01-30-2022 13:38-0500 Respiratory rate 16 /min Dr. Catia Christian Work Phone: [facility] 01-30-2022 13:38-0500 SaO2% (BldA) [Mass fraction] 94 % Dr. Catia Christian Work Phone: [facility] 01-30-2022 13:38-0500 Systolic blood pressure 156 mm[Hg] Dr. Catia Christian Work Phone: [facility] 01-25-2022 15:11-0500 Body height 152.[address] Catia Christian Work Phone: [facility] 01-25-2022 15:11-0500 Body weight 63.[address] Catia Christian Work Phone: [facility] 01-19-2022 17:43-0500 Heart rate 72 /min Dr. Catia Christian Work Phone: [facility] Work Phone: 01-19-2022 17:42-0500 Diastolic blood pressure 93 mm[Hg] Dr. Catia Christian Work Phone: [facility] Work Phone: 01-19-2022 17:42-0500 Systolic blood pressure 161 mm[Hg] Dr. Catia Christian Work Phone: [facility] Work Phone: 01-19-2022 15:10-0500 Body temperature 97.7 [degF] Dr. Catia Christian Work Phone: [facility] Work Phone: 01-19-2022 15:10-0500 Respiratory rate 16 /min Dr. Catia Christian Work Phone: [facility] Work Phone: 01-19-2022 15:10-0500 SaO2% (BldA) [Mass fraction] 93 % Dr. Catia Christian Work Phone: [facility] Work Phone: 01-18-2022 14:08-0500 Body height 152.[address] Catia Christian Work Phone: [facility] Work Phone: 01-18-2022 14:08-0500 Body weight 63.[address] Catia Christian Work Phone: [facility] Work Phone: 01-03-2022 18:15-0500 Body mass index (BMI) [Ratio] 27.4 kg/m2 Dr. Catia Christian Work Phone: [facility] 01-03-2022 16:09-0500 Body mass index (BMI) [Ratio] 27.6 kg/m2 Dr. Catia Christian Work Phone: [facility] 01-03-2022 15:38-0500 Body temperature 97.9 [degF] Dr. Catia Christian Work Phone: [facility] 01-03-2022 15:38-0500 Diastolic blood pressure 99 mm[Hg] Dr. Catia Christian Work Phone: [facility] 01-03-2022 15:38-0500 Heart rate 85 /min Dr. Catia Christian Work Phone: [facility] 01-03-2022 15:38-0500 Respiratory rate 16 /min Dr. Catia Christian Work Phone: [facility] 01-03-2022 15:38-0500 SaO2% (BldA) [Mass fraction] 96 % Dr. Catia Christian Work Phone: [facility] 01-03-2022 15:38-0500 Systolic blood pressure 164 mm[Hg] Dr. Catia Christian Work Phone: [facility] 01-03-2022 13:00-0500 Body height 152.[address] Catia Christian Work Phone: [facility] Work Phone: 01-03-2022 13:00-0500 Body weight 64.[address] Catia Christian Work Phone: [facility] 01-03-2022 03:47-0500 Inhaled oxygen flow rate 2 L/min Dr. Catia Christian Work Phone: [facility] 01-02-2022 04:30-0500 Diastolic blood pressure 88 mm[Hg] [facility] Work Phone: 01-02-2022 04:30-0500 Heart rate 96 /min [facility] Work Phone: 01-02-2022 04:30-0500 Respiratory rate 18 /min [facility] Work Phone: 01-02-2022 04:30-0500 SaO2% (BldA) [Mass fraction] 96 % [facility] Work Phone: 01-02-2022 04:30-0500 Systolic blood pressure 158 mm[Hg] [facility] Work Phone: 01-02-2022 04:00-0500 Body temperature 98.2 [degF] [facility] Work Phone: 01-02-2022 02:27-0500 Body height 152.4 cm [facility] Work Phone: 01-02-2022 02:27-0500 Body mass index (BMI) [Ratio] 29 kg/m2 [facility] Work Phone: 01-02-2022 02:27-0500 Body weight 67.4 kg [facility] Work Phone: 12-27-2021 08:03-0500 Body temperature 98.4 [degF] [facility] 12-27-2021 08:03-0500 Diastolic blood pressure 86 mm[Hg] [facility] 12-27-2021 08:03-0500 Heart rate 98 /min [facility] 12-27-2021 08:03-0500 SaO2% (BldA) [Mass fraction] 97 % [facility] 12-27-2021 08:03-0500 Systolic blood pressure 153 mm[Hg] [facility] 11-03-2021 08:13-0400 Body height 152.4 cm [facility] Work Phone: 11-03-2021 08:13-0400 Body mass index (BMI) [Ratio] 26.9 kg/m2 [facility] 11-03-2021 08:13-0400 Body temperature 97.2 [degF] [facility] 11-03-2021 08:13-0400 Body weight 62.59 kg [facility] 11-03-2021 08:13-0400 Diastolic blood pressure 72 mm[Hg] [facility] 11-03-2021 08:13-0400 Heart rate 86 /min [facility] 11-03-2021 08:13-0400 Respiratory rate 14 /min [facility] 11-03-2021 08:13-0400 SaO2% (BldA) [Mass fraction] 100 % [facility] 11-03-2021 08:13-0400 Systolic blood pressure 131 mm[Hg] [facility] 11-02-2021 08:13-0400 Body mass index (BMI) [Ratio] 26.9 kg/m2 [facility] 11-02-2021 08:13-0400 Body temperature 97.8 [degF] [facility] 11-02-2021 08:13-0400 Body weight 62.59 kg [facility] 11-02-2021 08:13-0400 Diastolic blood pressure 95 mm[Hg] [facility] 11-02-2021 08:13-0400 Heart rate 95 /min [facility] 11-02-2021 08:13-0400 Respiratory rate 14 /min [facility] 11-02-2021 08:13-0400 SaO2% (BldA) [Mass fraction] 98 % [facility] 11-02-2021 08:13-0400 Systolic blood pressure 152 mm[Hg] [facility] 09-08-2021 11:15-0400 Diastolic blood pressure 75 mm[Hg] Dr. Catia Christian Work Phone: [facility] Work Phone: 09-08-2021 11:15-0400 Heart rate 72 /min Dr. Catia Christian Work Phone: [facility] Work Phone: 09-08-2021 11:15-0400 Systolic blood pressure 140 mm[Hg] Dr. Catia Christian Work Phone: [facility] Work Phone: 09-08-2021 08:08-0400 Body height 153.[address] Catia Christian Work Phone: [facility] Work Phone: 09-08-2021 08:08-0400 Body mass index (BMI) [Ratio] 25.9 kg/m2 Dr. Catia Christian Work Phone: [facility] Work Phone: 09-08-2021 08:08-0400 Body temperature 96.3 [degF] Dr. Catia Christian Work Phone: [facility] Work Phone: 09-08-2021 08:08-0400 Body weight 61.[address] Catia Christian Work Phone: [facility] Work Phone: 09-08-2021 08:08-0400 Respiratory rate 14 /min Dr. Catia Christian Work Phone: [facility] Work Phone: 09-08-2021 08:08-0400 SaO2% (BldA) [Mass fraction] 97 % Dr. Catia Christian Work Phone: [facility] Work Phone: 09-07-2021 11:24-0400 Body temperature 96.1 [degF] Dr. Catia Christian Work Phone: [facility] Work Phone: 09-07-2021 11:24-0400 Diastolic blood pressure 73 mm[Hg] Dr. Catia Christian Work Phone: [facility] Work Phone: 09-07-2021 11:24-0400 Heart rate 73 /min Dr. Catia Christian Work Phone: [facility] Work Phone: 09-07-2021 11:24-0400 Respiratory rate 16 /min Dr. Catia Christian Work Phone: [facility] Work Phone: 09-07-2021 11:24-0400 SaO2% (BldA) [Mass fraction] 97 % Dr. Catia Christian Work Phone: [facility] Work Phone: 09-07-2021 11:24-0400 Systolic blood pressure 147 mm[Hg] Dr. Catia Christian Work Phone: [facility] Work Phone: 07-12-2021 13:20-0400 Body height 153.[address] Catia Christian Work Phone: [facility] Work Phone: 07-12-2021 13:20-0400 Body temperature 97.3 [degF] Dr. Catia Christian Work Phone: [facility] Work Phone: 07-12-2021 13:20-0400 Diastolic blood pressure 89 mm[Hg] Dr. Catia Christian Work Phone: [facility] Work Phone: 07-12-2021 13:20-0400 Heart rate 94 /min Dr. Catia Christian Work Phone: [facility] Work Phone: 07-12-2021 13:20-0400 Respiratory rate 16 /min Dr. Catia Christian Work Phone: [facility] Work Phone: 07-12-2021 13:20-0400 Systolic blood pressure 171 mm[Hg] Dr. Catia Christian Work Phone: [facility] Work Phone: 07-08-2021 07:59-0400 Body mass index (BMI) [Ratio] 25.9 kg/m2 Dr. Catia Christina Work Phone: [facility] Work Phone: 07-08-2021 07:59-0400 Body temperature 98.1 [degF] Dr. Catia Christian Work Phone: [facility] Work Phone: 07-08-2021 07:59-0400 Body weight 61.[address] Catia Christian Work Phone: [facility] Work Phone: 07-08-2021 07:59-0400 Diastolic blood pressure 79 mm[Hg] Dr. Catia Christian Work Phone: [facility] Work Phone: 07-08-2021 07:59-0400 Heart rate 85 /min Dr. Catia Christian Work Phone: [facility] Work Phone: 07-08-2021 07:59-0400 Respiratory rate 16 /min Dr. Catia Christian Work Phone: [facility] Work Phone: 07-08-2021 07:59-0400 SaO2% (BldA) [Mass fraction] 97 % Dr. Catia Christian Work Phone: [facility] Work Phone: 07-08-2021 07:59-0400 Systolic blood pressure 143 mm[Hg] Dr. Catia Christian Work Phone: [facility] Work Phone: 07-07-2021 08:01-0400 Body mass index (BMI) [Ratio] 25.9 kg/m2 Dr. Catia Christian Work Phone: [facility] Work Phone: 07-07-2021 08:01-0400 Body temperature 97.6 [degF] Dr. Catia Christian Work Phone: [facility] Work Phone: 07-07-2021 08:01-0400 Body weight 61.[address] Catia Christian Work Phone: [facility] Work Phone: 07-07-2021 08:01-0400 Diastolic blood pressure 94 mm[Hg] Dr. Catia Christian Work Phone: [facility] Work Phone: 07-07-2021 08:01-0400 Heart rate 95 /min Dr. Catia Christian Work Phone: [facility] Work Phone: 07-07-2021 08:01-0400 Respiratory rate 16 /min Dr. Catia Christian Work Phone: [facility] Work Phone: 07-07-2021 08:01-0400 SaO2% (BldA) [Mass fraction] 96 % Dr. Catia Christian Work Phone: [facility] Work Phone: 07-07-2021 08:01-0400 Systolic blood pressure 151 mm[Hg] Dr. Catia Christian Work Phone: [facility] Work Phone: 06-07-2021 14:34-0400 Body mass index (BMI) [Ratio] 27.1 kg/m2 Dr. Catia Christian Work Phone: [facility] Work Phone: 06-07-2021 14:34-0400 Body temperature 96.7 [degF] Dr. Catia Christian Work Phone: [facility] Work Phone: 06-07-2021 14:34-0400 Body weight 64.[address] Catia Christian Work Phone: [facility] Work Phone: 06-07-2021 14:34-0400 Diastolic blood pressure 82 mm[Hg] Dr. Catia Christian Work Phone: [facility] Work Phone: 06-07-2021 14:34-0400 Heart rate 99 /min Dr. Catia Christian Work Phone: [facility] Work Phone: 06-07-2021 14:34-0400 Respiratory rate 18 /min Dr. Catia Christian Work Phone: [facility] Work Phone: 06-07-2021 14:34-0400 SaO2% (BldA) [Mass fraction] 97 % Dr. Catia Christian Work Phone: [facility] Work Phone: 06-07-2021 14:34-0400 Systolic blood pressure 140 mm[Hg] Dr. Catia Christian Work Phone: [facility] Work Phone: 06-07-2021 14:34-0400 Body mass index (BMI) [Ratio] 27.1 kg/m2 Dr. Catia Christian Work Phone: [facility] Work Phone: 06-07-2021 14:34-0400 Body temperature 96.7 [degF] Dr. Catia Christian Work Phone: [facility] Work Phone: 06-07-2021 14:34-0400 Body weight 64.[address] Catia Christian Work Phone: [facility] Work Phone: 06-07-2021 14:34-0400 Diastolic blood pressure 82 mm[Hg] Dr. Catia Christian Work Phone: [facility] Work Phone: 06-07-2021 14:34-0400 Heart rate 99 /min Dr. Catia Christian Work Phone: [facility] Work Phone: 06-07-2021 14:34-0400 Respiratory rate 18 /min Dr. Catia Christian Work Phone: [facility] Work Phone: 06-07-2021 14:34-0400 SaO2% (BldA) [Mass fraction] 97 % Dr. Catia Christian Work Phone: [facility] Work Phone: 06-07-2021 14:34-0400 Systolic blood pressure 140 mm[Hg] Dr. Catia Christian Work Phone: [facility] Work Phone: 05-11-2021 08:30-0400 Body height 152.4 cm [facility] Work Phone: 05-11-2021 08:30-0400 Body mass index (BMI) [Ratio] 26.7 kg/m2 [facility] Work Phone: 05-11-2021 08:30-0400 Body temperature 97.5 [degF] [facility] Work Phone: 05-11-2021 08:30-0400 Body weight 62.14 kg [facility] Work Phone: 05-11-2021 08:30-0400 Diastolic blood pressure 77 mm[Hg] [facility] Work Phone: 05-11-2021 08:30-0400 Heart rate 77 /min [facility] Work Phone: 05-11-2021 08:30-0400 Respiratory rate 12 /min [facility] Work Phone: 05-11-2021 08:30-0400 SaO2% (BldA) [Mass fraction] 96 % [facility] Work Phone: 05-11-2021 08:30-0400 Systolic blood pressure 143 mm[Hg] [facility] Work Phone: 05-10-2021 08:19-0400 Body temperature 97.5 [degF] [facility] Work Phone: 05-10-2021 08:19-0400 Diastolic blood pressure 84 mm[Hg] [facility] Work Phone: 05-10-2021 08:19-0400 Heart rate 90 /min [facility] Work Phone: 05-10-2021 08:19-0400 Respiratory rate 16 /min [facility] Work Phone: 05-10-2021 08:19-0400 SaO2% (BldA) [Mass fraction] 98 % [facility] Work Phone: 05-10-2021 08:19-0400 Systolic blood pressure 161 mm[Hg] [facility] Work Phone: 03-16-2021 06:56-0500 Body mass index (BMI) [Ratio] 26.4 kg/m2 [facility] Work Phone: 03-16-2021 06:56-0500 Body temperature 97.1 [degF] [facility] Work Phone: 03-16-2021 06:56-0500 Body weight 61.23 kg [facility] Work Phone: 03-16-2021 06:56-0500 Diastolic blood pressure 86 mm[Hg] [facility] Work Phone: 03-16-2021 06:56-0500 Heart rate 86 /min [facility] Work Phone: 03-16-2021 06:56-0500 Respiratory rate 16 /min [facility] Work Phone: 03-16-2021 06:56-0500 SaO2% (BldA) [Mass fraction] 95 % [facility] Work Phone: 03-16-2021 06:56-0500 Systolic blood pressure 146 mm[Hg] [facility] Work Phone: 03-15-2021 07:24-0500 Body temperature 98.1 [degF] [facility] Work Phone: 03-15-2021 07:24-0500 Diastolic blood pressure 79 mm[Hg] [facility] Work Phone: 03-15-2021 07:24-0500 Heart rate 91 /min [facility] Work Phone: 03-15-2021 07:24-0500 Respiratory rate 16 /min [facility] Work Phone: 03-15-2021 07:24-0500 SaO2% (BldA) [Mass fraction] 99 % [facility] Work Phone: 03-15-2021 07:24-0500 Systolic blood pressure 149 mm[Hg] [facility] Work Phone: 10-10-2016 10:57-0400 BMI (Body Mass Index) 26.32 kg/m2 [facility] Work Phone: 10-10-2016 10:57-0400 Body Temperature 98 [degF] [facility] Work Phone: 10-10-2016 10:57-0400 BP Diastolic 102 mm[Hg] [facility] Work Phone: 10-10-2016 10:57-0400 BP Systolic 178 mm[Hg] [facility] Work Phone: 10-10-2016 10:57-0400 Height 153.03 cm [facility] Work Phone: 10-10-2016 10:57-0400 Pulse (Heart Rate) 83 /min [facility] Work Phone: 10-10-2016 10:57-0400 Respiratory Rate 20 /min [facility] Work Phone: 10-10-2016 10:57-0400 Weight 61.64 kg [facility] Work Phone: 12-02-2014 08:33-0400 Body Temperature 97.6 [degF] Bel Kaiser RN RN [facility] Work Phone: 12-02-2014 08:33-0400 BP Diastolic 88 mm[Hg] Bel Kaiser RN RN [facility] Work Phone: 12-02-2014 08:33-0400 BP Systolic 138 mm[Hg] Bel Kaiser RN RN [facility] Work Phone: 12-02-2014 08:33-0400 Pulse (Heart Rate) 101 /min Bel Kaiser RN RN [facility] Work Phone: 12-02-2014 08:33-0400 Respiratory Rate 16 /min Bel Kaiser RN RN [facility] Work Phone: 12-02-2014 08:33-0400 Weight 68.49 kg Bel Kaiser RN RN [facility] Work Phone: 08-24-2014 10:57-0400 BMI (Body Mass Index) 28.47 kg/m2 Bel aKiser RN RN [facility] Work Phone: 08-24-2014 10:57-0400 BSA (Body Surface Area) 1.64 m2 Bel Kaiser RN RN [facility] Work Phone: 06-01-2014 09:11-0400 Pulse Oximetry 96 % Bel Kaiser RN RN [facility] Work Phone: 01-12-2014 13:03-0500 Height 153.03 cm Bel Kaiser RN RN [facility] Work Phone: Encounters Encounter Date Encounter Type Care Provider Facility Start: 11-21-2024 ambulatory [facility] Facility :[facility] Start: 11-19-2024 End: 11-19-2024 ambulatory [facility] Facility:[facility] Start: 09-26-2024 End: 09-26-[address] Natalie Rodriguez MD [facility] Work Phone: Start: 09-26-2024 End: 09-26-[address] Catia Christian DO Work Phone: [facility] Start: 09-24-2024 End: 09-24-[address] Natalie Rodriguez MD [facility] Work Phone: Start: 09-24-2024 End: 09-24-[address] Catia Christian DO Work Phone: [facility] Start: 09-08-2024 End: 09-08-[address] Catia Christian DO Work Phone: [facility] Start: 09-08-2024 End: 09-08-[address] Catia Christian DO [facility] Work Phone: Start: 09-08-2024 End: 09-08-2024 ambulatory Catia Christian Facility:[facility] Start: 08-01-2024 End: 08-01-[address] Natalie Rodriguez MD [facility] Work Phone: Start: 08-01-2024 End: 08-01-[address] Catia Christian DO Work Phone: [facility] Start: 07-30-2024 End: 07-30-[address] Natalei Rodriguez MD [facility] Work Phone: Start: 07-30-2024 End: 07-30-[address] Catia Christian DO Work Phone: [facility] Work Phone: Start: 06-12-2024 End: 06-12-[address] Catia Christian DO Work Phone: [facility] Work Phone: Start: 06-12-2024 End: 06-12-[address] [facility] Start: 06-12-2024 End: 06-12-2024 ambulatory [facility] Facility:[facility] Start: 06-04-2024 End: 06-04-[address] Natalie Rodriguez MD [facility] Work Phone: Start: 06-04-2024 End: 06-04-2024 ambulatory [facility] Facility:[facility] Start: 06-02-2024 End: 06-02-[address] Natalie Rodriguez MD [facility] Work Phone: Start: 06-02-2024 End: 06-02-2024 ambulatory [facility] Facility:[facility] Start: 04-22-2024 End: 04-22-[address] Catia Christian DO Work Phone: [facility] Work Phone: Start: 04-22-2024 End: 04-22-[address] Catia Christian DO -[facility], [place] Work Phone: Start: 04-22-2024 End: 04-22-2024 ambulatory Catia Christian Facility:[facility] Start: 04-11-2024 End: 04-11-[address] Catia Christian DO [facility] Work Phone: Start: 04-11-2024 End: 04-11-[address] Catia Christian DO Work Phone: [facility] Work Phone: Start: 04-09-2024 End: 04-09-[address] Natalie Rodriguez MD [facility] Work Phone: Start: 04-09-2024 End: 04-09-2024 ambulatory [facility] Facility:[facility] Start: 02-15-2024 End: 02-15-[address] Natalie Rodriguez MD -Medical Out Work Phone: Start: 02-15-2024 End: 02-15-2024 ambulatory [facility] Facility:[facility] Start: 02-13-2024 End: 02-13-[address] Natalie Rodriguez MD -Medical Out Work Phone: Start: 02-13-2024 End: 02-13-2024 ambulatory [facility] Facility:[facility] Start: 01-22-2024 End: 01-22-[address] Natalei Rodriguez MD -Laboratory, [place] Work Phone: Start: 01-22-2024 End: 01-22-2024 ambulatory [facility] Facility:[facility] Start: 12-13-2023 End: 12-13-2023 ambulatory [facility] Facility:[facility] Start: 12-12-2023 End: 12-12-2023 ambulatory [facility] Facility:[facility] Start: 05-16-2023 End: 05-16-2023 ambulatory [facility] Work Phone: Start: 05-16-2023 End: 05-16-2023 Patient encounter procedure [facility] Work Phone: Start: 05-10-2023 End: 05-10-2023 ambulatory [facility] Work Phone: Start: 05-10-2023 End: 05-10-2023 Patient encounter procedure [facility]-Medical Out Work Phone: Start: 05-09-2023 End: 05-09-2023 ambulatory [facility] Work Phone: Start: 05-09-2023 End: 05-09-2023 Patient encounter procedure [facility]-Medical Out Work Phone: Start: 04-06-2023 End: 04-06-2023 Emergency department patient visit [facility]-Emergency Department Work Phone: Start: 03-23-2023 End: 03-23-2023 ambulatory [facility] Work Phone: Start: 03-23-2023 End: 03-23-2023 Patient encounter procedure [facility]-Medical Out Work Phone: Start: 03-09-2023 End: 03-09-2023 Patient encounter procedure [facility]-Medical Out Work Phone: Start: 03-08-2023 End: 03-08-2023 Patient encounter procedure [facility]-Medical Out Work Phone: Start: 01-17-2023 End: 01-17-2023 ambulatory [facility] Work Phone: Start: 01-17-2023 End: 01-17-2023 Discharged Recurring [facility]-Physical Therapy Work Phone: Start: 01-15-2023 End: 01-15-2023 ambulatory [facility] Work Phone: Start: 01-15-2023 End: 01-15-2023 Patient encounter procedure [facility]-Medical Out Work Phone: Start: 01-11-2023 End: 01-11-2023 ambulatory [facility] Work Phone: Start: 01-11-2023 End: 01-11-2023 Patient encounter procedure [facility]-Medical Out Work Phone: Start: 01-04-2023 Registered Rec[facility]ring [facility]-Occupational Therapy Work Phone: Start: 11-30-2022 Registered Recurring [facility]-Occupational Therapy Work Phone: Start: 11-24-2022 End: 11-24-2022 ambulatory [facility] Work Phone: Start: 11-24-2022 End: 11-24-2022 Patient encounter procedure [facility] Work Phone: Start: 11-09-2022 End: 11-09-2022 Patient encounter procedure [facility]-Medical Out Work Phone: Start: 11-08-2022 End: 11-08-2022 ambulatory [facility] Work Phone: Start: 11-08-2022 End: 11-08-2022 Patient encounter procedure [facility]-Medical Out Work Phone: Start: 10-19-2022 Registered Recurring [facility]-Occupational Therapy Work Phone: Start: 09-22-2022 End: 09-22-2022 Patient encounter procedure [facility]-Medical Out Work Phone: Start: 09-07-2022 End: 09-07-[address] Catia Christian Work Phone: [facility] Work Phone: Start: 09-07-2022 End: 09-07-[address] Catia Christian Work Phone: [facility]-Medical Out Work Phone: Start: 09-06-2022 End: 09-06-[address] Catia Christian Work Phone: [facility] Work Phone: Start: 09-06-2022 End: 09-06-[address] Catia Christian Work Phone: [facility]-Medical Out Work Phone: Start: 08-30-[address] Catia Christian Work Phone: [facility]-Physical Therapy Work Phone: Start: 08-14-2022 End: 08-14-[address] Catia Christian Work Phone: [facility] Work Phone: Start: 08-14-2022 End: 08-14-[address] Catia Christian Work Phone: [facility] Work Phone: Start: 07-13-2022 End: 07-13-[address] Catia Christian Work Phone: [facility]-Medical Out Work Phone: Start: 07-12-2022 End: 07-12-[address] Catia Christian Work Phone: [facility] Work Phone: Start: 07-12-2022 End: 07-12-[address] Catia Christian Work Phone: [facility]-Medical Out Start: 05-29-2022 End: 05-29-[address] Catia Christian Work Phone: [facility] Work Phone: Start: 05-29-2022 End: 05-29-[address] Catia Christian Work Phone: [facility]-Laboratory, Phy Office 3rd Flr Start: 05-25-2022 End: 05-25-[address] Catia Christian Work Phone: [facility] End[facility] Start: 05-18-2022 End: 05-18-[address] Catia Christian Work Phone: [facility] Work Phone: Start: 05-18-2022 End: 05-18-[address] Catia Christian Work Phone: [facility]-Medical Out Start: 05-17-2022 End: 05-17-[address] [facility] Start: 05-02-2022 Non-patient / Non-visit Dr. Rosalee Christian Work Phone: [facility] Start: 05-02-2022 End: 05-02-[address] Catia Christian Work Phone: [facility] Work Phone: Start: 05-02-2022 End: 05-02-[address] Catia Christian Work Phone: [facility]-Cardiovascular Services Start: 04-12-2022 End: 04-12-[address] Catia Christian Work Phone: [facility] Work Phone: Start: 04-12-2022 End: 04-12-[address] [facility] Christian [facility] Start: 03-24-2022 End: 03-24-[address] Catia Christian Work Phone: [facility] Work Phone: Start: 03-24-2022 End: 03-24-[address] Catia Christian Work Phone: [facility]-Medical Out Start: 03-23-2022 End: 03-23-[address] Catia Christian Work Phone: [facility] Work Phone: Start: 03-23-2022 End: 03-23-[address] Catia Christian Work Phone: [facility]-Medical Out Start: 02-20-2022 End: 02-20-[address] Catia Christian Work Phone: [facility] Work Phone: Start: 02-20-2022 End: 02-20-[address] Catia Christian Work Phone: [facility] Start: 01-13-2022 End: 01-13-[address] Catia Christian Work Phone: [facility] Work Phone: Start: 01-13-2022 End: 01-13-[address] Catia Christian Work Phone: [facility]-Cardiovascular Services Start: 01-03-2022 End: 01-30-2022 Evaluation and management of inpatient Dr. Catia Christian Work Phone: [facility]-Transitional Care Unit Start: 01-03-2022 Non-patient / Non-visit Dr. Rosalee Christian Work Phone: [facility] Inpatient Physicians Start: 01-02-2022 End: 01-03-2022 Evaluation and management of inpatient Dr. Catia Christian [facility] Start: 01-02-2022 Non-patient / Non-visit Dr. Rosalee Christian Work Phone: [facility] Start: 01-02-2022 Non-patient / Non-visit Dr. Rosalee Christian Work Phone: [facility] Start: 01-02-2022 End: 01-03-2022 Evaluation and management of inpatient [facility]-Progressive Care Unit Start: 01-02-2022 observation encounter [facility] Work Phone: Start: 12-27-2021 End: 12-27-2021 ambulatory [facility] Work Phone: Start: 12-27-2021 End: 12-27-2021 Patient encounter procedure [facility]-Medical Out Start: 11-14-2021 End: 11-14-2021 ambulatory [facility] Work Phone: Start: 11-14-2021 End: 11-14-2021 Patient encounter procedure [facility]-Outpatient Breast Imaging Start: 11-03-2021 End: 11-03-2021 ambulatory [facility] Work Phone: Start: 11-03-2021 End: 11-03-2021 Patient encounter procedure [facility]-Medical Out Start: 11-02-2021 End: 11-02-2021 ambulatory [facility] Work Phone: Start: 11-02-2021 End: 11-02-2021 Patient encounter procedure [facility]-Medical Out Start: 10-21-2021 End: 10-21-2021 ambulatory [facility] Work Phone: Start: 10-21-2021 End: 10-21-2021 Patient encounter procedure [facility] Start: 09-08-2021 End: 09-08-[address] Catia Christian Work Phone: [facility]-Medical Out Start: 09-07-2021 End: 09-07-[address] Catia Christian Work Phone: [facility]-Medical Out Start: 07-12-2021 End: 07-12-[address] Catia Christian Work Phone: [facility]-Medical Out Start: 07-08-2021 End: 07-08-[address] [facility] Start: 07-07-2021 End: 07-07-[address] [facility] Start: 06-24-2021 End: 06-24-[address] Catia Christian Work Phone: [facility] Start: 06-07-2021 End: 06-07-[address] Catia Christian Work Phone: [facility] Start: 05-11-2021 End: 05-11-2021 Patient encounter procedure [facility]-Medical Out Start: 05-10-2021 End: 05-10-2021 Patient encounter procedure [facility]-Medical Out Start: 04-11-2021 End: 04-11-2021 Patient encounter procedure [facility] Start: 03-16-2021 End: 03-16-2021 [facility] Start: 03-15-2021 End: 03-15-2021 [facility] Start: 03-08-2021 Patient encounter procedure [facility] Start: 06-25-2014 End: 08-03-2016 Encounter for general adult medical examination without abnormal findings Bel Kaiser RN RN [facility] Work Phone: Procedures Date Procedure Procedure Detail Performing Clinician Start: 04-06-2023 CT of chest without contrast Start: 04-06-2023 CT of head without contrast Start: 04-06-2023 X-ray of chest posteroanterior view Start: 04-12-2022 Plain chest X-ray Dr. Catia Christian Work Phone: Start: 01-17-2022 X-ray of chest [...] 08-24-2014 End: 12-01-2014 Lipid panel [AGGREGATE] Catia Christian Work Phone: Start: 05-04-2014 End: 07-14-2014 *CBC with Differential Catia Christian DO Work Phone: Start: 05-04-2014 End: 07-10-2014 *CMP Complete Metabolic Panel Catia Christian Work Phone: Start: 05-04-2014 End: 07-14-2014 Follow Up Appt 3 months Catia Christian Work Phone: Start: 03-05-2014 End: 04-02-2014 *PAPIG6 Cytopath, Cerv/Vag, Fluid Auto Redo Catia Christian Work Phone: Start: 03-05-2014 End: 08-03-2016 Screening [...] Treatment Date Care Activity Detail Author Start: 08-01-2024 Iv infusion therapy prophylaxis/dx ea hour THER/PROPH/DIAG IV INF [facility] Start: 08-01-2024 Iv infusion therapy/prophylaxis /dx 1st to 1 hr THER/PROPH/DIAG IV INF [facility] Start: 06-02-2024 Iv infusion therapy prophylaxis/dx ea hour THER/PROPH/DIAG IV INF [facility] Start: 06-02-2024 Iv infusion therapy/prophylaxis /dx 1st to 1 hr THER/PROPH/DIAG IV INF [facility] Start: 04-09-2024 Iv infusion therapy prophylaxis/dx ea hour THER/PROPH/DIAG IV INF [facility] Start: 04-09-2024 Iv infusion therapy/prophylaxis /dx 1st to 1 hr THER/PROPH/DIAG IV INF [facility] Start: 02-13-2024 Iv infusion therapy prophylaxis/dx ea hour THER/PROPH/DIAG IV INF [facility] Start: 02-13-2024 Iv infusion therapy/prophylaxis /dx 1st to 1 hr THER/PROPH/DIAG IV INF [facility] Start: 05-09-2023 Iv infusion therapy prophylaxis/dx ea hour THER/PROPH/DIAG IV INF [facility] Start: 05-09-2023 Iv infusion therapy/prophylaxis /dx 1st to 1 hr THER/PROPH/DIAG IV INF [facility] Start: 04-06-2023 [facility] Start: 11-08-2022 Iv infusion therapy prophylaxis/dx ea hour THER/PROPH/DIAG IV INF [facility] Start: 11-08-2022 Iv infusion therapy/prophylaxis /dx 1st to 1 hr THER/PROPH/DIAG IV INF [facility] Start: 09-07-2022 Iv infusion therapy prophylaxis/dx ea hour THER/PROPH/DIAG IV INF [facility] Start: 09-07-2022 Iv infusion therapy/prophylaxis /dx 1st to 1 hr THER/PROPH/DIAG IV INF [facility] Start: 07-13-2022 Iv infusion therapy prophylaxis/dx ea hour THER/PROPH/DIAG IV INF [facility] Start: 07-13-2022 Iv infusion therapy/prophylaxis /dx 1st to 1 hr THER/PROPH/DIAG IV INF [facility] Start: 05-18-2022 Iv infusion therapy prophylaxis/dx ea hour THER/PROPH/DIAG IV INF [facility] Start: 05-18-2022 Iv infusion therapy/prophylaxis /dx 1st to 1 hr THER/PROPH/DIAG IV INF [facility] Start: 03-24-2022 Iv infusion therapy prophylaxis/dx ea hour THER/PROPH/DIAG IV INF [facility] Start: 03-24-2022 Iv infusion therapy/prophylaxis /dx 1st to 1 hr THER/PROPH/DIAG IV INF [facility] Start: 02-01-2022 Blood chemistry [facility] Work Phone: Start: 01-31-2022 Development of care plan [facility] Start: 01-30-2022 Patient discharge [facility] Start: 01-25-2022 Blood chemistry [facility] Work Phone: Start: 01-18-2022 Enteric precautions [facility] Work Phone: Start: 01-13-2022 Application of elastic bandage [facility] Start: 01-06-2022 [facility] Start: 01-04-2022 Development of care plan [facility] Start: 01-04-2022 Speech therapy management [facility] Start: 01-04-2022 Developing a treatment plan [facility] Start: 01-04-2022 Verification routine [facility] Work Phone: Start: 01-04-2022 [facility] Start: 01-03-2022 Following clinical pathway protocol [facility] Start: 01-03-2022 Speech therapy assessment [facility] Start: 01-03-2022 Admission procedure [facility] Start: 01-03-2022 Measuring intake and output [facility] Start: 01-03-2022 Patient referral to dietitian [facility] Start: 01-03-2022 Referral to occupational therapist [facility] Start: 01-03-2022 Referral to service [facility] Start: 01-03-2022 Vital signs measurements [facility] Start: 01-03-2022 [facility] Start: 01-03-2022 Patient discharge [facility] Start: 01-03-2022 Patient referral to dietitian [facility] Start: 01-02-2022 Admission procedure [facility] Start: 01-02-2022 Speech therapy assessment [facility] Start: 01-02-2022 Assessment of risk of venous thromboembolism [facility] Start: 01-02-2022 Cardiac monitoring [facility] Start: 01-02-2022 Catheterization of vein [facility] Start: 01-02-2022 Elevation of head of bed [facility] Start: 01-02-2022 Exercises [facility] Start: 01-02-2022 Implementation of planned interventions [facility] Start: 01-02-2022 Insertion of catheter into peripheral vein [facility] Start: 01-02-2022 Measuring intake and output [facility] Start: 01-02-2022 Notification of physician [facility] Start: 01-02-2022 Oxygen therapy [facility] Start: 01-02-2022 Providing care according to standard [facility] Start: 01-02-2022 Provision of activity privileges [facility] Start: 01-02-2022 Referral to occupational therapist [facility] Start: 01-02-2022 Referral to service [facility] Start: 01-02-2022 Tobacco use cessation education [facility] Start: 01-02-2022 [facility] Start: 01-02-2022 Following clinical pathway protocol [facility] Start: 01-02-2022 Verification routine [facility] Work Phone: Start: 01-02-2022 Admission procedure [facility] Start: 01-02-2022 Oxygen therapy [facility] Work Phone: Start: 01-02-2022 [facility] Work Phone: Start: 12-27-2021 Iv infusion therapy prophylaxis/dx ea hour THER/PROPH/DIAG IV INF [facility] Start: 12-27-2021 Iv infusion therapy/prophylaxis /dx 1st to 1 hr THER/PROPH/DIAG IV INF [facility] Start: 11-03-2021 Iv infusion therapy prophylaxis/dx ea hour THER/PROPH/DIAG IV INF [facility] Work Phone: Start: 11-03-2021 Iv infusion therapy/prophylaxis /dx 1st to 1 hr THER/PROPH/DIAG IV INF [facility] Work Phone: Start: 11-02-2021 Iv infusion therapy prophylaxis/dx ea hour THER/PROPH/DIAG IV INF [facility] Work Phone: Start: 11-02-2021 Iv infusion therapy/prophylaxis /dx 1st to 1 hr THER/PROPH/DIAG IV INF [facility] Work Phone: Start: 09-07-2021 Iv infusion therapy prophylaxis/dx ea hour THER/PROPH/DIAG IV INF [facility] Work Phone: Start: 09-07-2021 Iv infusion therapy/prophylaxis /dx 1st to 1 hr THER/PROPH/DIAG IV INF [facility] Work Phone: Start: 07-08-2021 Iv infusion therapy prophylaxis/dx ea hour THER/PROPH/DIAG IV INF [facility] Work Phone: Start: 07-08-2021 Iv infusion therapy/prophylaxis /dx 1st to 1 hr THER/PROPH/DIAG IV INF [facility] Work Phone: Start: 07-07-2021 Iv infusion therapy prophylaxis/dx ea hour THER/PROPH/DIAG IV INF [facility] Work Phone: Start: 07-07-2021 Iv infusion therapy/prophylaxis /dx 1st to 1 hr THER/PROPH/DIAG IV INF [facility] Work Phone: Start: 05-11-2021 Iv infusion therapy prophylaxis/dx ea hour THER/PROPH/DIAG IV INF [facility] Work Phone: Start: 05-11-2021 Iv infusion therapy/prophylaxis /dx 1st to 1 hr THER/PROPH/DIAG IV INF [facility] Work Phone: Start: 05-10-2021 Iv infusion therapy prophylaxis/dx ea hour THER/PROPH/DIAG IV INF [facility] Work Phone: Start: 05-10-2021 Iv infusion therapy/prophylaxis /dx 1st to 1 hr THER/PROPH/DIAG IV INF [facility] Work Phone: Start: 10-18-2016 End: 10-18-2016 Appointment [facility] Work Phone: Start: 10-10-2016 End: 10-17-2016 Bx breast 1st Lesion strtctc Stereotactic localization guidance for breast biopsy [facility] Work Phone: Start: 10-10-2016 End: 10-10-2016 Mammogram, one breast Mammogram, Diagnositic Unilateral [facility] Work Phone: Start: 10-10-2016 End: 10-10-2016 Us exam, breast(s) US Breast(s) [facility] Work Phone: Start: 08-22-2016 End: 08-22-2016 Appointment Appointment [facility] Work Phone: Start: 04-14-2015 End: 04-14-2015 Mammogram, screening Mammogram, Screening, both breasts [facility] Work Phone: Start: 08-24-2014 End: 12-01-2014 Lipid panel [AGGREGATE] *Lipid Profile [facility] Work Phone: Start: 05-04-2014 End: 07-14-2014 *CBC with Differential *CBC with Differential [facility] Work Phone: Start: 05-04-2014 End: 07-10-2014 *CMP Complete Metabolic Panel *CMP Complete Metabolic Panel [facility] Work Phone: Start: 05-04-2014 End: 07-14-2014 Follow Up Appt 3 months Follow Up Appt 3 months [facility] Work Phone: Start: 03-05-2014 End: 04-02-2014 *PAPIG6 Cytopath, Cerv/Vag, Fluid Auto Redo *PAPIG6 Cytopath, Cerv/Vag, Fluid Auto Redo [facility] Work Phone: Start: 02-17-2014 End: 07-14-2014 Mammogram, Screening, both breasts Mammogram, Screening, both breasts [facility] Work Phone: Start: 01-12-2014 End: 01-15-2014 Lipid panel [AGGREGATE] *Lipid Profile [facility] Work Phone: Anion gap measurement [facility] Work Phone: BUN/Creatinine ratio [facility] Work Phone: Calcium [Mass/volume ] in Serum or Plasma [facility] Work Phone: Carbon dioxide, tota l [Moles/volume] in Serum or Plasma [facility] Work Phone: Chloride [Moles/volu me] in Serum or Plasma [facility] Work Phone: Creatinine [Moles/vo lume] in Serum or Plasma [facility] Work Phone: Glucose [Mass/volume ] in Serum or Plasma [facility] Work Phone: Hematocrit [Volume Fraction] of Blood [facility] Work Phone: Hemoglobin [Mass/vol ume] in Blood [facility] Work Phone: Leukocytes [#/volume ] in Blood [facility] Work Phone: Mean corpuscular hemoglobin concentration determination [facility] Work Phone: Mean corpuscular hemoglobin determination [facility] Work Phone: Measurement of renal function [facility] Work Phone: Neutrophil count [facility] Work Phone: Neutrophil percent differential count [facility] Work Phone: Patient Education ED Rib Fracture [facility] Work Phone: Patient referral [facility] Work Phone: Platelets [#/volume] in Blood [facility] Work Phone: Potassium [Moles/vol ume] in Serum or Plasma [facility] Work Phone: Red blood cell count [facility] Work Phone: Red cell distributio n width determination [facility] Work Phone: Sodium [Moles/volume ] in Serum or Plasma [facility] Work Phone: Urea nitrogen [Mass/volume] in Serum or Plasma [facility] Work Phone: Immunizations Immunization Date Immunization Notes Care Provider [facility] 01-05-2022 Pneumococcal Vaccine PCV20 (Prevnar 20) Dr. Catia Christian Work Phone: [facility] 07-20-2021 Covid (Moderna) Dr. Catia ye Work Phone: [facility] 01-07-2021 Covid (Moderna) Dr. Catia ye Work Phone: [facility] 03-25-2020 Covwi (Moderna) [facility] 02-26-2020 Covid (Moderna) [facility] 11-23-2014 pneumococcal conjuga te vaccine, [address] Catia Christian Work Phone: [facility] Payers Date Payer Category Payer Private Health Insurance 101 [id number] 2023 Self-pay [id number] 2016 [facility] [id number] Medicare [id number] Unknown [id number] 2.16.8 [id number] Unknown [id number] 2.16.8 [id number] Unknown [id number] 2.16.8 [id number] Unknown [id number] 2.16.8 [id number] Unknown [id number] 2.16.8 [id number] Unknown [id number] 2.16.8 [id number] Unknown [id number] 2.16.8 [id number] Unknown [id number] 2.16.8 [id number] Unknown [id number] 2.16.8 [id number] Unknown [id number] 2.16.8 [id number] Unknown [id number] 2.16.8 [id number] Unknown [id number] 2.16.8 [id number] Unknown [id number] 2.16.8 [id number] Unknown [id number] 2.16.8 [id number] Unknown [id number] 2.16.8 [id number] Unknown [id number] 2.16.8 [id number] Unknown [id number] 2.16.8 [id number] Unknown [id number] 2.16.8 [id number] Unknown [id number] 2.16.8 [id number] Social History Date Type Detail Facility Start: 03-12-2019 End: 04-06-2023 Tobacco smoking status NHIS Unknown if ever smoked [facility] Start: 06-14-2020 None [facility] Start: 06-14-2020 Alone [facility] Start: 06-14-2020 Non-smoker [facility] Start: 1935 Sex Assigned At Female W [facility] Start: 04-06-2023 End: 04-06-2023 Tobacco smoking status NHIS Never smoked tobacco (finding) [facility] Start: 04-12-2024 End: 04-30-2024 Sex Female (finding) [facility] Goals Date Patient Goal Desired Activity /State Functional Status Date Assessment Result Facility 01-30-2022 Functional status Ambulates [facility] Work Phone: 01-28-2022 Functional status Tolerates Activity Fair [facility] Work Phone: 01-19-2022 Functional status Chair [facility] Work Phone: 01-03-2022 Functional status Chair [facility] Work Phone: Mental Status Date Assessment Result Facility 09-24-2024 Cognitive function Awake;Alert;A ppropriate;Follow s Commands [facility] Work Phone: 08-01-2024 Cognitive function Awake;Alert;A ppropriate;Follow s Commands [facility] Work Phone: 07-30-2024 Cognitive function Awake;Alert;A ppropriate;Follow s Commands [facility] Work Phone: 06-04-2024 Cognitive function Awake;Alert;A ppropriate;Follow s Commands [facility] Work Phone: 06-02-2024 Cognitive function Voice/Name [facility] Work Phone: 04-11-2024 Cognitive function Voice/Name [facility] Work Phone: 04-09-2024 Cognitive function Voice/Name [facility] Work Phone: 02-15-2024 Cognitive function Voice/Name [facility] Work Phone: 02-13-2024 Cognitive function Awake;Alert;A ppropriate;Follow s Commands [facility] Work Phone: 05-10-2023 Cognitive function Awake;Alert;A ppropriate;Follow s Commands [facility] Work Phone: 05-09-2023 Cognitive function Voice/Name [facility] Work Phone: 03-23-2023 [facility] 03-09-2023 Cognitive function Voice/Name [facility] Work Phone: 03-08-2023 Cognitive function Awake;Alert;A ppropriate;Follow s Commands [facility] Work Phone: 01-15-2023 Cognitive function Voice/Name [facility] Work Phone: 01-11-2023 Cognitive function Awake;Alert;Appropriat e [facility] Work Phone: 11-09-2022 Cognitive function Awake;Alert;Appropriat e [facility] Work Phone: 11-08-2022 Cognitive function Voice/Name [facility] Work Phone: 09-22-2022 Cognitive function Voice/Name [facility] Work Phone: 09-07-2022 Cognitive function Voice/Name [facility] Work Phone: 09-06-2022 Cognitive function Voice/Name [facility] Work Phone: 07-13-2022 Cognitive function [facility] Work Phone: 07-12-2022 Cognitive function Voice/Name [facility] Work Phone: 05-18-2022 Cognitive function Voice/Name [facility] Work Phone: 05-17-2022 Cognitive function Voice/Name [facility] Work Phone: 03-24-2022 Cognitive function Voice/Name [facility] Work Phone: 03-23-2022 Cognitive function Voice/Name [facility] Work Phone: 01-30-2022 Cognitive function Voice/Name [facility] Work Phone: 01-29-2022 Cognitive function Comprehension Ability Demonstrates ability to follow instructions/comprehend [facility] Work Phone: 01-19-2022 Cognitive function Voice/Name [facility] Work Phone: 01-03-2022 Cognitive function Voice/Name [facility] Work Phone: 01-02-2022 Cognitive function Voice/Name [facility] Work Phone: 12-27-2021 Cognitive function Level Of Cons ciousness Awake;Alert;Appropriate;Follow s Commands [facility] Work Phone: 11-03-2021 Cognitive function Voice/Name [facility] Work Phone: 11-02-2021 Cognitive function Voice/Name [facility] Work Phone: 09-08-2021 Cognitive function Voice/Name [facility] Work Phone: 09-07-2021 Cognitive function Level Of Cons ciousness Awake;Alert;Appropriate;Follow s Commands [facility] Work Phone: 07-12-2021 Cognitive function Voice/Name [facility] Work Phone: 07-08-2021 Cognitive function Voice/Name [facility] Work Phone: 07-07-2021 Cognitive function Voice/Name [facility] Work Phone: 05-11-2021 Cognitive function Voice/Name [facility] Work Phone: 05-10-2021 Cognitive function Level Of Cons ciousness Awake;Alert;Appropriate;Follow s Commands [facility] Work Phone: 03-16-2021 Cognitive function Voice/Name [facility] Work Phone: 03-15-2021 Cognitive function Awake;Alert;A ppropriate;Follow s Commands [facility] Work Phone: Clinical Notes 05-02-2022 to 04-06-2023 Note Date & Type Note Facility 04-06-2023 Hospital Discharg e instructions Additional Instructions You have a fracture of your left seventh rib. Take Tylenol and use the Lidoderm patches. They also sell gttl-oek-yatjcso lidocaine patches called Salonpas. Use the Tylenol threes for breakthrough pain. Follow-up with your primary care doctor. Rib fractures can take 6 to 8 weeks to heal. [facility] Work Phone: 11-30-2022 Discharge summary Note Date/Time November 30, 2022 1:14pm [facility] Physical Therapy [facility] [address] [place] [address] [address] [place] [address] / REHABILITATION SERVICES DISCHARGE SUMMARY MR#: [id number] Acct: [id number] Name: DARIAN BANSAL Rep #: [id number] : 1935 87 From: Cert. MELANY Posadas, OCS Referring DrWayne: Dr. Catia Christian DO Status: REG RCR [facility] Discharge Summary D/C summary: It has been my pleasure to treat DARIAN BANSAL referred by Dr. Catia Christian DO,with the [...] please feel free to call me at [phone]. Thank you for the referral of thispatient. Sincerely, Onesimo Boyd, PT, Cert MDT, OCS Balance/Gait/Functional tests Balance/Special Test Scores CATSIB Score (Max score 120 seconds): 70 Lower Extremity Functional Score: 21 TUG Test Time Seconds: 25.41 Tug Test: 20-30sec.=variable mobility 30 Second Chair Rise Test Seconds: 13 Improvement % Improvement: 50 <Electronically signed by Onesimo Boyd PT, Cert. T, OCS> 11/30/22 6213 CC: Dr. Catia Christian, DO ~ GENE Signed [facility] Work Phone: [phone]) 739-483103-28-2023 Procedure [facility] Evaluation noteNo assessment information availableDel[facility] Work Phone: Evaluation note* Diagnosis Onset Date Resolution Status Osteoporosis acute Hypothyroidism chronic [facility] Work Phone: Evaluation note* Diagnosis Onset Date Resolution Status Stroke acute Benign hypertension chronic [facility] Work Phone: Evaluation note* Diagnosis Onset Date Resolution Status Stroke acute Stroke-like symptoms acute Benign hypertension chronic [facility] Work Phone: Evaluation note* Diagnosis Onset Date Resolution Status Benign hypertension chronic Stroke resolved Debility acute GERD (gastroesophageal reflux disease) acute Hyperlipidemia acute Hyperparathyroidism acute Hypokalemia acute Hypothyroidism acute 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 Vitamin D deficiency acute Hypertension chronic Stroke resolved [facility] Work Phone: Evaluation note* Diagnosis Onset Date Resolution Status Benign hypertension chronic Stroke resolved Debility acute GERD (gastroesophageal reflux disease) acute Hyperlipidemia acute Hypothyroidism acute 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 Vitamin D deficiency acute Hypertension chronic Hyperparathyroidism resolved Hypokalemia resolved Stroke resolved [facility] Work Phone: Evaluation note* Diagnosis Onset Date Resolution Status Debility acute GERD (gastroesophageal reflux disease) acute Hyperlipidemia acute Hypothyroidism acute 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 Vitamin D deficiency acute Hypertension chronic Hyperparathyroidism resolved Hypokalemia resolved Stroke resolved [facility] Work Phone: Evaluation note* Diagnosis Onset Date Resolution Status Hypothyroidism acute Osteoporosis acute [facility] Work Phone: Reason for referral (narrative)No reason for referral information [facility] Work Phone: Chief Complaint and Reason for Visit Chief Complaint IVIG IVIG IVIG IVIG Chief Complaint IVIG 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, 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, 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 IVIG IVIG PROLIA Reason for Visit Osteoporosis Hypothyroidism Chief Complaint IVIG 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, 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, 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 PCP IVIG IVIG PROLIA Reason for Visit Osteoporosis Hypothyroidism Chief Complaint 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, 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, 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- [...] ACUTE CVA ACUTE CVA PVD RIGHT LEG 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 Reason for Visit Benign hypertension Stroke Debility GERD (gastroesophageal reflux disease) Hyperlipidemia Hypothyroidism Stenosis of right internal carotid artery Vitamin D deficiency Hypertension Hyperparathyroidism Hypokalemia Stroke Chief Complaint IVIG ACUTE CVA ACUTE CVA ACUTE CVA ACUTE CVA PVD RIGHT LEG 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 IVIG IVIG Reason for Visit Benign hypertension Stroke Debility GERD (gastroesophageal reflux disease) Hyperlipidemia Hypothyroidism Stenosis of right internal carotid artery Vitamin D deficiency Hypertension Hyperparathyroidism Hypokalemia Stroke Chief Complaint ACUTE CVA PVD RIGHT LEG 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 IVIG IVIG SHORTNESS OF BREATH SHORTNESS OF BREATH Reason for Visit Debility GERD (gastroesophageal reflux disease) Hyperlipidemia Hypothyroidism Stenosis of right internal carotid artery Vitamin D deficiency Hypertension Hyperparathyroidism Hypokalemia Stroke Chief Complaint ACUTE CVA 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 IVIG IVIG SHORTNESS OF BREATH SHORTNESS OF BREATH IVIG IVIG Reason for Visit Debility GERD (gastroesophageal reflux disease) Hyperlipidemia Hypothyroidism Stenosis of right internal carotid artery Vitamin D deficiency Hypertension Hyperparathyroidism Hypokalemia Stroke Chief Complaint INTERMEDIATE LAB WOR K IVIG IVIG SHORTNESS OF [...] m IVIG July 30, 2024 7:57 am Chief Complaint Admit Date IVIG April 09, 2024 8:09 am PROLIA April 11, 2024 8:04 am S/O- 2 ORDERS- 2 DRS April 22, 2024 9: 03am IVIG June 02, 2024 8:1 1am IVIG June 04, 2024 8:0 7am STANDING ORDER June 12, 2024 10:03a m IVIG July 30, 2024 7:57 am IVIG August 01, 2024 8:00 am Chief Complaint Admit Date IVIG June 02, 2024 8:1 1am IVIG June 04, 2024 8:0 7am STANDING ORDER June 12, 2024 10:03a m IVIG July 30, 2024 7:57 am IVIG August 01, 2024 8:00 am 2 DRS/ 2 ORDERS September 08, 2024 10: 49am Chief Complaint Admit Date IVIG June 02, 2024 8:1 1am IVIG June 04, 2024 8:0 7am STANDING ORDER June 12, 2024 10:03a m IVIG July 30, 2024 7:57 am IVIG August 01, 2024 8:00 am 2 DRS/ 2 ORDERS September 08, 2024 10: 49am IVIG September 24, 2024 8: 02am Chief Complaint Admit Date IVIG June 02, 2024 8:1 1am IVIG June 04, 2024 8:0 7am STANDING ORDER June 12, 2024 10:03a m IVIG July 30, 2024 7:57 am IVIG August 01, 2024 8:00 am 2 DRS/ 2 ORDERS September 08, 2024 10: 49am IVIG September 24, 2024 8: 02am IVIG September 26, 2024 7: 54am Advance Directives No Advanced Directives Records Found Advance Directive Response Recorded Date/ Time Advance Directives Yes March 10, 2016 8:56am Living Will No March 12 12:22pm Power of Take Out Waiter/Waitress No March 12, 2019 12:22pm Advance Directive Response Recorded Date/ Time Advance Directives Yes March 10, 2016 7:56am Living Will No March 12 11:22am Power of Take Out Waiter/Waitress No March 12, 2019 11:22am Advance Directive Response Recorded Date/ Time Advance Directives Yes March 10, 2016 7:56am Living Will Yes January 02, 022 2:59am Power of Take Out Waiter/Waitress No January 02, 2022 2:59am Advance Directive Response Recorded Date/ Time Advance Directives Yes March 10, 2016 7:56am Living Will Yes January 02, 022 5:08am Power of Take Out Waiter/Waitress No January 02, 2022 5:08am Advance Directive Response Recorded Date/ Time Name of Medical Power of Take Out Waiter/Waitress Ibrahima Bansal, frederic January 05, 2022 11:44am Advance Directives Yes March 10, 2016 7:56am Living Will Yes January 05 11:44am Power of Take Out Waiter/Waitress Yes January 05, 2022 11:44am Advance Directive Response Recorded Date/ Time Name of Medical Power of Take Out Waiter/Waitress Ibrahima Bansal, frederic January 05, 2022 12:44pm Advance Directives Yes March 10, 2016 8:56am Living Will Yes January 05 12:44pm Power of Take Out Waiter/Waitress Yes January 05, 2022 12:44pm Advance Directive Response Recorded Date/ Time Advance Directives Yes March 10, 2016 8:56am Living Will Yes January 05 12:44pm Power of Take Out Waiter/Waitress Yes January 05, 2022 12:44pm Advance Directive Response Recorded Date/ Time Advance Directives Yes March 10, 2016 7:56am Living Will Yes January 05 11:44am Power of Take Out Waiter/Waitress Yes January 05, 2022 11:44am Advance Directive Response Recorded Date/ Time Name of Medical Power of Take Out Waiter/Waitress IBRAHIMA BANSAL April 06, 2023 4:14pm Advance Directives Yes March 10, 2016 7:56am Living Will Yes April 06, 2023 4:14pm Power of Take Out Waiter/Waitress Yes April 05 4:14pm Advance Directive Response Recorded Date/ Time Name of Medical Power of Take Out Waiter/Waitress IBRAHIMA BANSAL April 06, 2023 5:14pm Advance Directives Yes March 10, 2016 8:56am Living Will Yes April 06, 2023 5:14pm Power of Take Out Waiter/Waitress Yes April 05 5:14pm Advance Directive Response Recorded Date/ Time Living Will Yes April 06, 2023 4:14pm Power of Take Out Waiter/Waitress Yes April 05 4:14pm Advance Directives Yes March 10, 2016 7:56am Advance Directive Response Recorded Date/ Time Living Will Yes April 06, 2023 5:14pm Do you have a Healthcare Power of Take Out Waiter/Waitress? Yes April 06, 2023 5:14pm Advance Directives Yes March 10, 2016 8:56am Advance Directive Response Recorded Date/ Time Advance [...] section and content) DATE CREATED AUTHOR 02/18/2022 [facility] DATE CREATED AUTHOR AUTHOR'S ORGANIZ ATION 11/20/2024 [facility] Care Teams (unrecognized sec tion and content) Team Status: Active Member Role Status Dates Dr. Catia Christian DO Family Provider Active Dr. Catia Christian DO Primary Care Provider Active Team Status: Active Member Role Status Dates Dr. Catia Christian DO Primary Care Provider Active Dr. Roderick Trinh , DO Emergency Provider Active Dr. Jeronimo Mooney MD Admit Provider, Attending Provider, Other Provider Active Team Status: Active Member Role Status Dates Dr. Catia Christian DO Primary Care Provider Active Dr. David Nichols MD Attending Provider Active Team Status: Active Member Role Status Dates Dr. Catia Christian DO Primary Care Provider Active Dr. Roderick Trinh DO Emergency Provider Active Dr. Jeronimo Mooney [...] Christian DO Primary Care Provider, Attending P kai Active Team Status: Inactive Member Role Status Dates Dr. Catia Christian DO Primary Care Provider Active Dr. Roderick Trinh DO Emergency Provider Active Dr. Jeronimo Mooney [...] Active Member Role Status Dates Dr. Catia Malys , DO Primary Care Provider Active Dr. Natalie Rodriguez MD Attending Provider, Referring Provider Active Team Status: Inactive Member Role Status Dates Dr. Catia Christian DO Primary Care Provider Active Brennan Nishant HANSON MD Attending Provider, Referring Pro vider [...] Care Provider Active Dr. Ezio Lewis DO Attending Provider, Emergency Provider Active [...] July 30, 2024 End: July 30, 2024 Team Status: Active Member Role/Relationship Status Dates Dr. Catia Christian DO Primary Care Provider Active Team Status: Inactive Member Role/Relationship Status Dates Dr. Catia Christian DO Primary Care Provider Active Start: April 09, 2024 End: April 09, 2024 Dr. Natalie Rodriguez MD Attending Provider Active Start: April 09, 2024 End: April 09, 2024 Dr. Natalie Rodriguez MD Referring Provider Active Start: April 09, 2024 End: April 09, 2024 Team Status: Inactive Member Role/Relationship Status Dates Dr. Catia Christian DO Primary Care Provider Active Start: April 11, 2024 End: April 11, 2024 Dr. Catia Christian DO Attending Provider Active St art: April 11, 2024 End: April 11, 2024 Dr. Catia Christian DO Referring Provider Active St art: April 11, 2024 End: April 11, 2024 Team Status: Inactive Member Role/Relationship Status Dates Dr. Catia Christian DO Primary [...] April 22, 2024 Team Status: Inactive Member Role/Relationship Status Dates Dr. Catia Christian DO Primary Care Provider Active Start: June 02, 2024 End: June 02, 2024 Dr. Natalie Rodriguez MD Attending Provider Active Start: June 02, 2024 End: June 02, 2024 Dr. Natalie Rodriguez MD Referring Provider Active Start: June 02, 2024 End: June 02, 2024 Team Status: Inactive Member Role/Relationship Status Dates Dr. Catia Christian DO Primary Care Provider Active Start: June 04, 2024 End: June 04, 2024 Dr. Natalie Rodriguez MD Attending Provider Active Start: June 04, 2024 End: June 04, 2024 Dr. Natalie Rodriguez MD Referring Provider Active Start: June 04, 2024 End: June 04, 2024 Team Status: Inactive Member Role/Relationship Status Dates Dr. Catia Christian DO Primary Care Provider Active Start: June 12, 2024 End: June 12, 2024 Dr. Natalie Rodriguez MD Attending Provider Active Start: June 12, 2024 End: June 12, 2024 Dr. Natalie Rodriguez MD Referring Provider Active Start: June 12, 2024 End: June 12, 2024 Team Status: Inactive Member Role/Relationship Status Dates Dr. Catia Christian DO Primary Care Provider Active Start: July 30, 2024 End: July 30, 2024 Dr. Natalie Rodriguez MD Attending Provider Active Start: July 30, 2024 End: July 30, 2024 Dr. Natalie Rodriguez MD Referring Provider Active Start: July 30, 2024 End: July 30, 2024 Team Status: Inactive Member Role/Relationship Status Dates Dr. Catia Christian DO Primary Care Provider Active Start: August 01, 2024 End: August 01, 2024 Dr. Natalie Rodriguez MD Attending Provider Active Start: August 01, 2024 End: August 01, 2024 Dr. Natalie Rodriguez MD Referring Provider Active Start: August 01, 2024 End: August 01, 2024 Team Status: Inactive Member Role/Relationship Status Dates Dr. Catia Christian DO Primary Care Provider Active Start: June 02, 2024 End: June 02, 2024 Dr. Natalie Rodriguez MD Attending Provider Active Start: June 02, 2024 End: June 02, 2024 Dr. Natalie Rodriguez MD Referring Provider Active Start: June 02, 2024 End: June 02, 2024 Team Status: Inactive Member Role/Relationship Status Dates Dr. Catia Christian DO Primary Care Provider Active Start: June 04, 2024 End: June 04, 2024 Dr. Natalie Rodriguez MD Attending Provider Active Start: June 04, 2024 End: June 04, 2024 Dr. Natalie Rodriguez MD Referring Provider Active Start: June 04, 2024 End: June 04, 2024 Team Status: Inactive Member Role/Relationship Status Dates Dr. Catia Christian DO Primary Care Provider Active Start: June 12, 2024 End: June 12, 2024 Dr. Natalie Rodriguez MD Attending Provider Active Start: June 12, 2024 End: June 12, 2024 Dr. Natalie Rodriguez MD Referring Provider Active Start: June 12, 2024 End: June 12, 2024 Team Status: Inactive Member Role/Relationship Status Dates Dr. Catia Christian DO Primary Care Provider Active Start: July 30, 2024 End: July 30, 2024 Dr. Natalie Rodriguez MD Attending Provider Active Start: July 30, 2024 End: July 30, 2024 Dr. Natalie Rodriguez MD Referring Provider Active Start: July 30, 2024 End: July 30, 2024 Team Status: Inactive Member Role/Relationship Status Dates Dr. Catia Christian DO Primary Care Provider Active Start: August 01, 2024 End: August 01, 2024 Dr. Natalie Rodriguez MD Attending Provider Active Start: August 01, 2024 End: August 01, 2024 Dr. Natalie Rodriguez MD Referring Provider Active Start: August 01, 2024 End: August 01, 2024 Team Status: Inactive Member Role/Relationship Status Dates Dr. Catia Christian DO Primary Care Provider Active Start: September 08, 2024 End: September 08, 2024 Dr. Catia Christian DO Attending Provider Active St art: September 08, 2024 End: September 08, 2024 Dr. Catia Christian DO Referring Provider Active St art: September 08, 2024 End: September 08, 2024 Dr. Natalie Rodriguez MD Other Provider Active St art: September 08, 2024 End: September 08, 2024 Team Status: Inactive Member Role/Relationship Status Dates Dr. Catia Christian DO Primary Care Provider Active Start: September 24, 2024 End: September 24, 2024 Dr. Natalie Rodriguez MD Attending Provider Active Start: September 24, 2024 End: September 24, 2024 Dr. Natalie Rodriguez MD Referring Provider Active Start: September 24, 2024 End: September 24, 2024 Team Status: Inactive Member Role/Relationship Status Dates Dr. Catia Christian DO Primary Care Provider Active Start: September 26, 2024 End: September 26, 2024 Dr. Natalie Rodriguez MD Attending Provider Active Start: September 26, 2024 End: September 26, 2024 Dr. Natalie Rodriguez MD Referring Provider Active Start: September 26, 2024 End: September 26, 2024 FOR RECORDS PERTAINING TO PATIENTS WHO [...] BE BASED ON THE PRIMARY CLINICAL RECORDS. [facility] [employer] provides no warranty or guarantee of the accuracy or completeness of information in this document.
--- OUTSIDE RECORDS SUMMARY | 2024-11-21 08:19 | XMS RPT_ITS | CCD ---
Author Organization [facility] [place] [facility] Care Team Providers Care Health Advocate Name Role Phone Dilma Loo Unavailable Unavailable Chepe IQBAL, Blake Tom Unavailable Job RN RN, Bel Jones Unavailable Unavailabl e Dr. Catia Christian Primary Care Provider Dr. Catia Christian Referring Provider [phone] Dr. Magdy Mane Attending Provider Dr. [...] Attending Provider Dr. Fer Schneider Other Provider 1([facility])[phone] Malys, Dr. Bardales Primary Care Provider 1([facility])[phone] Magdalena, Dr. Hernandez Attending Provider 1([facility])[phone] Skinny, Dr. Clif Womack Other Provider Dr. Juan A Chandler Attending Provider 1([facility])[phone] Skinny, Dr. Clif Womack Referring Provider 1([facility])[phone] Malys, Dr. Bardales Referring Provider 1([facility])[phone] Alhaji, Dr. Curran Attending Provider 1([facility])[phone] Malys, Dr. Bardales Primary Care Provider 1([facility])[phone] Malys DO, Dr. Bardales Primary Care Provider 1([facility])[phone] Jennifer IQBAL, Dr. Estrada Attending Provider Jennifer IQBAL, Dr. Estrada Referring Provider Malys DO, Dr. Bardales Attending Provider 1([facility])[phone] Malys DO, Dr. Bardales Referring Provider 1([facility])[phone] Malys DO, Dr. Bardales Primary Care Provider 1([facility])[phone] Jennifer IQBAL, Dr. Estrada Attending Provider Jennifer IQBAL, Dr. Estrada Referring Provider Malephraim DO, Dr. Bardales Attending Provider 1([facility])[phone] Gino DO, Dr. Bardales Referring Provider 1([facility])[phone] Jennifer IQBAL, Dr. Estrada Other Provider 1([facility])[phone] Gino DO, Dr. Bardales Primary Care Provider 1([facility])[phone] Jennifer IQBAL, Dr. Estrada Attending Provider Jennifer IQBAL, Dr. Estrada Referring Provider Gino HOLDEN, Dr. Bardales Primary Care Provider 1([facility])[phone] Jennifer IQBAL, Dr. Estrada Attending Provider Jennifer IQBAL, Dr. Estrada Referring Provider Malys DO, Dr. Bardales Attending Provider 1([facility])[phone] Malys DO, Dr. Bardales Referring Provider 1([facility])[phone] Dr. Natalie Rodriguez MD Other Provider Vellanki, Natalie Referring Unavailable Vellanki, Natalie Attending [...] (20 sources) abaloparatide Drug Allergy 06-07-2021 vomitting [facility] (1 source) abaloparatide Drug allergy (disorder) 11-19-2024 [facility] Repository Medications Current Medications Medication Drug Class(es) [...] One tablet by mouth daily AMLODIPINE BESYLATE [id number] Catia Karen Christian, DO aspirin 81 mg [...] 11:00pm PROLIA 60 MG/ML SOLN yearly DENOSUMAB [id number] Bel Kaiser RN RN PROLIA 60 MG/ML SOLN yearly DENOSUMAB [id number] Bel Kaiser RN RN docusate sodium 50 mg / sennosides, mcc 8.6 mg oral tablet (2 sources) Start: 01-25-2022 take 1 tablet by mouth twice daily Sennosides-Docusate Sodium (Stool Softener-Stimulant Laxat) 8.6-50 mg Tablet Active 1 TABLET PO TWICE A DAY January 25, 2022 12:00am ergocalciferol 1.25 mg oral capsule (20 sources) Provitamin D2 Compound Start: 06-28-2017 Ergocalciferol (Vitamin D2) (Vitamin D2) 50,000 UNIT capsule Active 30369 U PO SA June 28, 2017 12:00am Supplement EVERY OTHER WEEK ON SUNDAY Start: 06-28-2017 take 1 capsule by mouth once E rgocalciferol (Vitamin D2) (Vitamin D) 50,000 UNIT capsule Active 01788 UNIT PO June 27, 2017 11:00pm Start: 01-07-2014 VITAMIN D (ERG OCALCIFEROL) 96774 UNIT CAPS 1 tablet every 2 weeks ERGOCALCIFEROL 63836759287 Catia Ferrera Start: 01-07-2014 VITAMIN D (ERG OCALCIFEROL) 99424 UNIT CAPS 1 tablet every 2 weeks ERGOCALCIFEROL 11730046160 Catia Ferrera Start: 11-04-2012 End: 12-10-2012 Ergocalciferol (Vitamin D2) (Vitamin D) 50,000 UNIT capsule Discontinued 89033 U PO Q7D November 04, 2012 12:00am [...] the morning after taking methotrexate LEUCOVORIN CALCIUM 52957887287 Catia Ferrera take 1 tablet by brandy th once daily LEUCOVORIN CALCIUM 15 MG TABS One tablet by mouth daily LEUCOVORIN CALCIUM 95593768603 Bel Kaiser RN RN lutein 20 mg [...] 8 tabs once a week METHOTREXATE SODIUM 01383866169 Catia Ferrera Start: 04-10-2013 take 20 mg [...] One tablet by mouth daily METOPROLOL TARTRATE 15582308827 Catia Christian DO omeprazole 10 mg delayed [...] TBEC One tablet by mouth daily OMEPRAZOLE 92539319311 Catia Ferrera Start: 11-04-2012 Omeprazole (Pr ilosec) 40 MG capsule Active 20 MG PO DAILY November 04, 2012 5:26pm pantoprazole 20 mg delayed release oral tablet (20 sources) Proton Pump Inhibitor Start: 01-03-2022 End: 01-03-2022 take 1 tablet by mouth once daily Pantoprazole 20 mg tablet,delayed release (DR/EC) Active 20 mg PO DAILY January 03, 2022 7:19pm GERD polyethylene glycol 3350 33278 mg powder for oral solution (2 sources) [...] TABS One tablet by mouth daily PREDNISONE 12887124645 Catia Ferrera Start: 01-07-2014 take 1 tablet by brandy th once daily PREDNISONE 5 MG TABS One tablet by mouth daily PREDNISONE 22677813232 Catia Ferrera Start: 01-08-2013 End: 06-27-2023 take [...] bedtime as needed for pain HYDROCODONE-ACETAMI NOPHEN 01659537966 Catia Christian DO Start: 06-01-2014 End: 08-03-2016 take 1 tablet by mouth at bedtime as needed for pain NORCO 5-325 MG TABS One tablet by mouth before bedtime as needed for pain HYDROCODONE-ACETAMINOPHEN 86503225817 Bel Kaiser RN RN Start: 06-01-2014 End: 08-03-2016 take 1 tablet by mouth at bedtime as needed for pain NORCO 5-325 MG TABS One tablet by mouth before bedtime as needed for pain HYDROCODONE-ACETAMINOPHEN 58288858956 Bel Kaiser RN RN alendronic acid 70 mg oral tablet (6 sources) Bisphosphonate Start: 01-07-2014 End: 08-03-2016 FOSAMAX 70 MG TABS 1 tablet every sunday ALENDRONATE SODIUM 11448186373 Bel Kaiser RN RN MULTIPLE VITAMINS-MINERALS (2 sources) Vitamin C Start: 01-07-2014 take 1 tablet by mouth once daily PRESERVISION/LUTEIN CAPS One tablet by mouth daily MULTIPLE VITAMINS-MINERALS 91778335578 Catia B Harn Start: 01-07-2014 End: 08-03-2016 take 1 tablet by mouth once daily PRESERVISION/LUTEIN CAPS One tablet by mouth daily MULTIPLE VITAMINS-MINERALS 22100582510 Bel Kaiser RN RN AZILSARTAN-CHLORTHALIDONE TABS (6 sources) Thiazide-like Diuretic, Angiotensin 2 Receptor Angeline Start: 01-07-2014 End: 03-05-2014 take 1 tablet by mouth once daily EDARBYCLOR TABS One tablet by mouth daily AZILSARTAN-CHLORTHALIDONE TABS 13125515623 Catia Christian DO Start: 01-07-2014 take 1 tablet by brandy th once daily EDARBYCLOR TABS One tablet by mouth alexandria y AZILSARTAN-CHLORTHALIDONE TABS 01365405949 Catia Ferrera calcitriol 0.84234 mg oral capsule (20 sources) Vitamin D3 [...] One tablet by mouth twice daily CALCITRIOL 98563684095 Bel Kaiser RN RN CALCIUM CITRATE-VITAMIN D TABS (2 sources) Start: 01-07-2014 take 1 tablet by mouth once daily CITRACAL/VITAMIN D TABS One tablet by mouth daily CALCIUM CITRATE-VITAMIN D TABS 84515270503 Catia Ferrera CALCIUM CITRATE-VITAMIN D TABS (1 source) Start: 01-07-2014 take 1 tablet by mouth once daily CITRACAL/VITAMIN D TABS One tablet by mouth daily CALCIUM CITRATE-VITAMIN D TABS 54210530431 Catia Ferrera captopril 25 mg oral tablet [...] TABS One tablet by mouth daily EZETIMIBE 96433350496 aCtia Christian DO folic acid 1 mg oral [...] Two tablets by mouth daily. FOLIC ACID 83740610406 Catia Ferrera Start: 11-04-2012 End: 12-10-2012 take [...] 80-12.5 MG TABS 1 PO daily VALSARTAN-HYDROCHLOROTHIAZIDE 90920150316 Catia Christian DO INTRAVENOUS IMMUNOGLOBULIN (IVIG) 120MG [...] One tablet by mouth daily LEVOTHYROXINE SODIUM 70706416519 Tessa Rutledge Start: 01-07-2014 End: 08-03-2016 take 1 tablet by mouth once daily LEVOTHYROXINE SODIUM 112 MCG TABS One tablet by mouth daily LEVOTHYROXINE SODIUM 87969475183 Catia Ferrera lidocaine 0.05 mg/mg medicated patch [...] One tablet by mouth daily MULTIPLE VITAMINS-MINERALS 57395576250 Catia Ferrera Start: 01-07-2014 End: 08-03-2016 take 1 tablet by mouth once daily PRESERVISION/LUTEIN CAPS One tablet by mouth daily MULTIPLE VITAMINS-MINERALS 14216157092 Bel Kaiser RN RN oxyCODONE hydrochloride 5 [...] Aldolaseon 09-09-2024 ALDOLASE 4.0 U/L Normal 3.3-10.3 [facility] Comment on above: Order Comment: DR. Carmen RODRIGUEZ GETS CPK, CMP, CBCD AND ALDODASE. DR.LISA CHRISTIAN GETS TSH, T3F T4F Result Comment: Perf ormed at: - [facility] [place] [address] [place], [place] [id number] Template Clerk: Harley Griffith PhD, Phone: [phone] Performed By: #### L 3100.7000, L500.4050, L501.3620, L100.0100 #### [facility] [address] [place], [address] Absolute lymphocyte countOrd ered By: Catia Christian on 09-08-2024 Lymphocytes Auto (Unsp spec) [#/Vol] 1.75 10*3/uL 0.83-4.51 [facility] Absolute neutrophil countOrd ered By: Catia Christian on 09-08-2024 Neutrophils (Bld) [#/Vol] 4.8 10*3/uL 2.0-7.7 [facility] Aldolase ser/plasOrdered By: Catia Christian on 09-08-2024 Aldolase [Catalytic activity/Vol] 4.0 mU/mL 3.3-10.3 [facility] Comment on above: Performed at: CB - [facility] [id number] [place], [place] [id number] Director: Harley Griffith PhD, Phone: [phone] Anion gap in Serum or Plasma Ordered By: Catia Christian on 09-08-2024 Anion gap [Moles/Vol] 14 mmol/L 5-15 [facility] Automated lymphocyte count a s percentage of total leukocytesOrdered By: Catia Christian on 09-08-2024 Lymphocytes/100 WBC Auto (Unsp spec) 23.0 % 19-41 [facility] BUN/creatinine ratioOrdered By: Catia Christian on 09-08-2024 Urea nitrogen/Creatinine [Mass ratio] 14.3 mg/mg 10-20 [facility] Basophil percentageOrdered B y: Catia Christian on 09-08-2024 Basophils/100 WBC (Bld) 1.3 % High 0-1 [facility] Bilirubin, totalOrdered By: Catia Christian on 09-08-2024 Bilirubin [Mass/Vol] 0.47 mg/dL 0.00-1.30 [facility] CBC W/Diff, Automatedon Absolute Lymph 1.75 X10 3/uL Normal 0.83-4.51 [facility] Comment on above: Order Comment: DR. Carmen RODRIGUEZ GETS CPK, CMP, CBCD AND ALDODASE. DR.LISA CHRISTIAN GETS TSH, T3F T4F Performed By: #### L 3100.7000, L500.4050, L501.3620, L100.0100 #### [facility] [address] [place], [address] Absolute Neut 4.8 X10 3/uL Normal 2.0-7.7 [facility] Comment on above: Order Comment: DR. Carmen RODRIGUEZ GETS CPK, CMP, CBCD AND ALDODASE. DR.LISA CHRISTIAN GETS TSH, T3F T4F Performed By: #### L 3100.7000, L500.4050, L501.3620, L100.0100 #### [facility] [address] [place], [address] Basophils/100 WBC (Bld) 1.3 % High 0-1 [facility] Comment on above: Order Comment: DR. Carmen RODRIGUEZ GETS CPK, CMP, CBCD AND ALDODASE. DR.LISA CHRISTIAN GETS TSH, T3F T4F Performed By: #### L 3100.7000, L500.4050, L501.3620, L100.0100 #### [facility] [address] [place], [address] Eosinophils/100 WBC (Bld) 1.1 % Normal 0-5 [facility] Comment on above: Order Comment: DR. Carmen RODRIGUEZ GETS CPK, CMP, CBCD AND ALDODASE. DR.LISA CHRISTIAN GETS TSH, T3F T4F Performed By: #### L 3100.7000, L500.4050, L501.3620, L100.0100 #### [facility] [address] [place], [address] Erythrocyte distribution width (RBC) [Ratio] 13.7 % Normal 11.6-14.6 [facility] Comment on above: Order Comment: DR. Carmen RODRIGUEZ GETS CPK, CMP, CBCD AND ALDODASE. DR.LISA CHRISTIAN GETS TSH, T3F T4F Performed By: #### L 3100.7000, L500.4050, L501.3620, L100.0100 #### [facility] [address] [place], [address] Hematocrit (Bld) [Volume fraction] 44.6 % Normal 37-47 [facility] Comment on above: Order Comment: DR. Carmen RODRIGUEZ GETS CPK, CMP, CBCD AND ALDODASE. DR.LISA CHRISTIAN GETS TSH, T3F T4F Performed By: #### L 3100.7000, L500.4050, L501.3620, L100.0100 #### [facility] [address] [place], [address] Hemoglobin (Bld) [Mass/Vol] 14.9 g/dL Normal 12.0-15.0 [facility] Comment on above: Order Comment: DR. Carmen RODRIGUEZ GETS CPK, CMP, CBCD AND ALDODASE. DR.LISA CHRISTIAN GETS TSH, T3F T4F Performed By: #### L 3100.7000, L500.4050, L501.3620, L100.0100 #### [facility] [address] [place], [address] IG% 0.700 Normal 0.0-0.9 [facility] Comment on above: Order Comment: DR. Carmen RODRIGUEZ GETS CPK, CMP, CBCD AND ALDODASE. DR.LISA CHRISTIAN GETS TSH, T3F T4F Result Comment: IG% - Immature Granulocytes (promyelocytes, myelocytes and metamyelocytes) > 1% indicates that a LEFT SHIFT is Present. Performed By: #### L 3100.7000, L500.4050, L501.3620, L100.0100 #### [facility] [address] [place], [address] Lymphocytes/100 WBC (Bld) 23.0 % Normal 19-41 [facility] Comment on above: Order Comment: DR. Carmen RODRIGUEZ GETS CPK, CMP, CBCD AND ALDODASE. DR.LISA CHRISTIAN GETS TSH, T3F T4F Performed By: #### L 3100.7000, L500.4050, L501.3620, L100.0100 #### [facility] [address] [place], [address] MCH (RBC) [Entitic mass] 31.0 pg Normal 27.0-32.0 [facility] Comment on above: Order Comment: DR. Carmen RODRIGUEZ GETS CPK, CMP, CBCD AND ALDODASE. DR.LISA CHRISTIAN GETS TSH, T3F T4F Performed By: #### L 3100.7000, L500.4050, L501.3620, L100.0100 #### [facility] [address] [place], [address] MCHC (RBC) [Mass/Vol] 33.4 g/dL Normal 32-36 [facility] Comment on above: Order Comment: DR. Carmen RODRIGUEZ GETS CPK, CMP, CBCD AND ALDODASE. DR.LISA CHRISTIAN GETS TSH, T3F T4F Performed By: #### L 3100.7000, L500.4050, L501.3620, L100.0100 #### [facility] [address] [place], [address] MCV (RBC) [Entitic vol] 92.9 fL Normal 81-99 [facility] Comment on above: Order Comment: DR. Carmen RODRIGUEZ GETS CPK, CMP, CBCD AND ALDODASE. DR.LISA CHRISTIAN GETS TSH, T3F T4F Performed By: #### L 3100.7000, L500.4050, L501.3620, L100.0100 #### [facility] [address] [place], [address] Monocytes/100 WBC (Bld) 10.9 % High 0-10 [facility] Comment on above: Order Comment: DR. Carmen RODRIGUEZ GETS CPK, CMP, CBCD AND ALDODASE. DR.LISA CHRISTIAN GETS TSH, T3F T4F Performed By: #### L 3100.7000, L500.4050, L501.3620, L100.0100 #### [facility] [address] [place], [address] Neutrophils/100 WBC (Bld) 63.0 % Normal 47-70 [facility] Comment on above: Order Comment: DR. Carmen RODRIGUEZ GETS CPK, CMP, CBCD AND ALDODASE. DR.LISA CHRISTIAN GETS TSH, T3F T4F Performed By: #### L 3100.7000, L500.4050, L501.3620, L100.0100 #### [facility] [address] [place], [address] Nucleated RBC (Bld) [#/Vol] 0 10*3/uL Normal 0-5 [facility] Comment on above: Order Comment: DR. Carmen RODRIGUEZ GETS CPK, CMP, CBCD AND ALDODASE. DR.LISA CHRISTIAN GETS TSH, T3F T4F Performed By: #### L 3100.7000, L500.4050, L501.3620, L100.0100 #### [facility] [address] [place], [address] Platelet mean volume (Bld) [Entitic vol] 10.8 fL Normal 6.2-12.0 [facility] Comment on above: Order Comment: DR. Carmen RODRIGUEZ GETS CPK, CMP, CBCD AND ALDODASE. DR.LISA CHRISTIAN GETS TSH, T3F T4F Performed By: #### L 3100.7000, L500.4050, L501.3620, L100.0100 #### [facility] [address] [place], [address] Platelets (Bld) [#/Vol] 260 10*3/uL Normal 150-450 [facility] Comment on above: Order Comment: DR. Carmen RODRIGUEZ GETS CPK, CMP, CBCD AND ALDODASE. DR.LISA CHRISTIAN GETS TSH, T3F T4F Performed By: #### L 3100.7000, L500.4050, L501.3620, L100.0100 #### [facility] [address] [place], [address] RBC (Bld) [#/Vol] 4.80 10*6/uL Normal 4.2-5.4 [facility] Comment on above: Order Comment: DR. Carmen RODRIGUEZ GETS CPK, CMP, CBCD AND ALDODASE. DR.LISA CHRISTIAN GETS TSH, T3F T4F Performed By: #### L 3100.7000, L500.4050, L501.3620, L100.0100 #### [facility] [address] [place], [address] RDW SD 46.5 fl High 35.1-43.9 [facility] Comment on above: Order Comment: DR. Carmen RODRIGUEZ GETS CPK, CMP, CBCD AND ALDODASE. DR.LISA CHRISTIAN GETS TSH, T3F T4F Performed By: #### L 3100.7000, L500.4050, L501.3620, L100.0100 #### [facility] [address] [place], [address] WBC (Bld) [#/Vol] 7.6 10*3/uL Normal 4.4-11.0 [facility] Comment on above: Order Comment: DR. Carmen RODRIGUEZ GETS CPK, CMP, CBCD AND ALDODASE. DR.LISA CHRISTIAN GETS TSH, T3F T4F Performed By: #### L 3100.7000, L500.4050, L501.3620, L100.0100 #### [facility] [address] [place], [address] CPK Total, Creatine Kinaseon 09-08-2024 CPK TOTAL 34 U/L Normal 24-195 [facility] Comment on above: Order Comment: DR. Carmen RODRIGUEZ GETS CPK, CMP, CBCD AND ALDODASE. DR.LISA CHRISTIAN GETS TSH, T3F T4F Performed By: #### L 3100.7000, L500.4050, L501.3620, L100.0100 #### [facility] [address] [place], [address] Carbon dioxide, total [Moles /volume] in Central venous bloodOrdered By: Catia Christian on 09-08-2024 CO2 [Moles/Vol] 23.7 mmol/L 21.0-32.0 [facility] Chloride assayOrdered By: Rosalee Christian on 09-08-2024 Chloride [Moles/Vol] 102 mmol/L 98-108 [facility] Comprehensive Metabolic Prof ilon 09-08-2024 Albumin [Mass/Vol] 4.3 g/dL Normal 3.4-4.8 [facility] Comment on above: Order Comment: DR. Carmen RODRIGUEZ GETS CPK, CMP, CBCD AND ALDODASE. DR.LISA CHRISTIAN GETS TSH, T3F T4F Performed By: #### L 3100.7000, L500.4050, L501.3620, L100.0100 #### [facility] [address] [place], [address] Albumin/Globulin [Mass ratio] 1.3 {ratio} Normal 0.9-2.4 [facility] Comment on above: Order Comment: DR. Carmen RODRIGUEZ GETS CPK, CMP, CBCD AND ALDODASE. DR.LISA CHRISTIAN GETS TSH, T3F T4F Performed By: #### L 3100.7000, L500.4050, L501.3620, L100.0100 #### [facility] [address] [place], [address] ALK PHOS 86 U/L Normal 35-104 [facility] Comment on above: Order Comment: DR. Carmen RODRIGUEZ GETS CPK, CMP, CBCD AND ALDODASE. DR.LISA CHRISTIAN GETS TSH, T3F T4F Performed By: #### L 3100.7000, L500.4050, L501.3620, L100.0100 #### [facility] [address] [place], [address] ALT [Catalytic activity/Vol] 23 U/L Normal <=34 [facility] Comment on above: Order Comment: DR. Carmen RODRIGUEZ GETS CPK, CMP, CBCD AND ALDODASE. DR.LISA CHRISTIAN GETS TSH, T3F T4F Performed By: #### L 3100.7000, L500.4050, L501.3620, L100.0100 #### [facility] [address] [place], [address] AST [Catalytic activity/Vol] 21 U/L Normal <=31 [facility] Comment on above: Order Comment: DR. Carmen RODRIGUEZ GETS CPK, CMP, CBCD AND ALDODASE. DR.LISA CHRISTIAN GETS TSH, T3F T4F Performed By: #### L 3100.7000, L500.4050, L501.3620, L100.0100 #### [facility] [address] [place], [address] Bilirubin [Mass/Vol] 0.47 mg/dL Normal 0.00-1.30 [facility] Comment on above: Order Comment: DR. Carmen RODRIGUEZ GETS CPK, CMP, CBCD AND ALDODASE. DR.LISA CHRISTIAN GETS TSH, T3F T4F Performed By: #### L 3100.7000, L500.4050, L501.3620, L100.0100 #### [facility] [address] [place], [address] BUN/CRE 14.3 RATIO Normal 10-20 [facility] Comment on above: Order Comment: DR. Carmen RODRIGUEZ GETS CPK, CMP, CBCD AND ALDODASE. DR.LISA CHRISTIAN GETS TSH, T3F T4F Performed By: #### L 3100.7000, L500.4050, L501.3620, L100.0100 #### [facility] [address] [place], [address] Calcium [Mass/Vol] 10.3 mg/dL Normal 7.6-11.0 [facility] Comment on above: Order Comment: DR. Carmen RODRIGUEZ GETS CPK, CMP, CBCD AND ALDODASE. DR.LISA CHRISTIAN GETS TSH, T3F T4F Performed By: #### L 3100.7000, L500.4050, L501.3620, L100.0100 #### [facility] [address] [place], [address] Chloride [Moles/Vol] 102 mmol/L Normal 98-108 [facility] Comment on above: Order Comment: DR. Carmen RODRIGUEZ GETS CPK, CMP, CBCD AND ALDODASE. DR.LISA CHRISTIAN GETS TSH, T3F T4F Performed By: #### L 3100.7000, L500.4050, L501.3620, L100.0100 #### [facility] [address] [place], [address] CO2 [Moles/Vol] 23.7 mmol/L Normal 21.0-32.0 [facility] Comment on above: Order Comment: DR. Carmen RODRIGUEZ GETS CPK, CMP, CBCD AND ALDODASE. DR.LISA CHRISTIAN GETS TSH, T3F T4F Performed By: #### L 3100.7000, L500.4050, L501.3620, L100.0100 #### [facility] [address] [place], [address] Creatinine [Mass/Vol] 0.65 mg/dL Low 0.70-1.20 [facility] Comment on above: Order Comment: DR. Carmen RODRIGUEZ GETS CPK, CMP, CBCD AND ALDODASE. DR.LISA CHRISTIAN GETS TSH, T3F T4F Performed By: #### L 3100.7000, L500.4050, L501.3620, L100.0100 #### [facility] [address] [place], [address] GAP 14 Normal 5-15 [facility] Comment on above: Order Comment: DR. Carmen RODRIGUEZ GETS CPK, CMP, CBCD AND ALDODASE. DR.LISA CHRISTIAN GETS TSH, T3F T4F Performed By: #### L 3100.7000, L500.4050, L501.3620, L100.0100 #### [facility] [address] [place], [address] GFR/1.73 sq M.predicted among non-blacks MDRD (S/P/Bld) [Vol rate/Area] 85 mL/min/{1.73_m2} Normal >60 [facility] Comment on above: Order Comment: DR. Carmen RODRIGUEZ GETS CPK, CMP, CBCD AND ALDODASE. DR.LISA CHRISTIAN GETS TSH, T3F T4F Result Comment: mL/m in/1.73m2 CKD-EPI Creatinine Equation (2020) Performed By: #### L 3100.7000, L500.4050, L501.3620, L100.0100 #### [facility] [address] [place], [address] Globulin (S) [Mass/Vol] 3.4 g/dL Normal 2.2-4.2 [facility] Comment on above: Order Comment: DR. Carmen RODRIGUEZ GETS CPK, CMP, CBCD AND ALDODASE. DR.LISA CHRISTIAN GETS TSH, T3F T4F Performed By: #### L 3100.7000, L500.4050, L501.3620, L100.0100 #### [facility] [address] [place], [address] Glucose [Mass/Vol] 149 mg/dL High 70-99 [facility] Comment on above: Order Comment: DR. Carmen RODRIGUEZ GETS CPK, CMP, CBCD AND ALDODASE. DR.LISA CHRISTIAN GETS TSH, T3F T4F Performed By: #### L 3100.7000, L500.4050, L501.3620, L100.0100 #### [facility] [address] [place], [address] Potassium [Moles/Vol] 3.8 mmol/L Normal 3.3-5.1 [facility] Comment on above: Order Comment: DR. Carmen RODRIGUEZ GETS CPK, CMP, CBCD AND ALDODASE. DR.LISA CHRISTIAN GETS TSH, T3F T4F Performed By: #### L 3100.7000, L500.4050, L501.3620, L100.0100 #### [facility] [address] [place], [address] Sodium [Moles/Vol] 140 mmol/L Normal 133-145 [facility] Comment on above: Order Comment: DR. Carmen RODRIGUEZ GETS CPK, CMP, CBCD AND ALDODASE. DR.LISA CHRISTIAN GETS TSH, T3F T4F Performed By: #### L 3100.7000, L500.4050, L501.3620, L100.0100 #### [facility] [address] [place], [place], [id number] T PROT 7.7 g/dL Normal 5.9-8.4 [facility] Comment on above: Order Comment: DR. Carmen RODRIGUEZ GETS CPK, CMP, CBCD AND ALDODASE. DR.LISA CHRISTIAN GETS TSH, T3F T4F Performed By: #### L 3100.7000, L500.4050, L501.3620, L100.0100 #### [facility] [address] [place], [address] Urea nitrogen [Mass/Vol] 9 mg/dL Normal 4-19 [facility] Comment on above: Order Comment: DR. Carmen RODRIGUEZ GETS CPK, CMP, CBCD AND ALDODASE. DR.LISA CHRISTIAN GETS TSH, T3F T4F Performed By: #### L 3100.7000, L500.4050, L501.3620, L100.0100 #### [facility] [address] [place], [place], [id number] Eosinophil percentageOrdered By: Catia Christian on 09-08-2024 Eosinophils/100 WBC (Bld) 1.1 % 0-5 [facility] Erythrocyte distribution wid th ratioOrdered By: Catia Christian on 09-08-2024 Erythrocyte distribution width (RBC) [Ratio] 13.7 % 11.6-14.6 [facility] Erythrocyte distribution wid th standard deviationOrdered By: Catia Christian on 09-08-2024 Erythrocyte distribution width (RBC) [Ratio] 46.5 fl High 35.1-43.9 [facility] Free T3on 09-08-2024 Free T3 [Mass/Vol] 3.4 pg/mL Normal 2.18-3.98 [facility] Comment on above: Order Comment: DR. Carmen RODRIGUEZ GETS CPK, CMP, CBCD AND ALDODASE. DR.LISA CHRISTIAN GETS TSH, T3F T4F Performed By: #### L 3100.7000, L500.4050, L501.3620, L100.0100 #### [facility] [place], [address] Free O1Dafvhza By: Catia lowery on 09-08-2024 Free T3 [Mass/Vol] 3.4 pg/mL 2.18-3.98 [facility] Glomerular filtration rate ( GFR) estimation/1.73 sq m using serum, plasma, or whole bOrdered By: Catia Christian on 09-08-2024 GFR/1.73 sq M.predicted among non-blacks MDRD (S/P/Bld) [Vol rate/Area] 85 mL/min/{1.73_m2} >60 [facility] Comment on above: mL/min/1.73m2 CKD-EP I Creatinine Equation (2020) Hematocrit Auto (Bld) [Volum e fraction]Ordered By: Catia Christian on 09-08-2024 Hematocrit (Bld) [Volume fraction] 44.6 % 37-47 [facility] Hemoglobin measurementOrdere d By: Catia Christian on 09-08-2024 Hemoglobin (Bld) [Mass/Vol] 14.9 g/dL 12.0-15.0 [facility] Immature granulocytes/100 WB C Auto (Bld)Ordered By: Catia Christian on 09-08-2024 Immature granulocytes/100 WBC (Bld) 0.700 % 0.0-0.9 [facility] Comment on above: IG% - Immature Granu locytes (promyelocytes, myelocytes and metamyelocytes) > 1% indicates that a LEFT SHIFT is Present. Laboratory - Chemistry and C hemistry - challengeOrdered By: Catia Christian on 09-08-2024 AST [Catalytic activity/Vol] 21 U/L <32 [facility] MCV (mean corpuscular volume ) determinationOrdered By: Catia Christian on 09-08-2024 MCV (RBC) [Entitic vol] 92.9 fL 81-99 [facility] Mean corpuscular hemoglobin (MCH) determinationOrdered By: Catia Christian on 09-08-2024 MCH (RBC) [Entitic mass] 31.0 pg 27.0-32.0 [facility] Mean corpuscular hemoglobin concentration (MCHC) determinationOrdered By: Catia Christian on 09-08-2024 MCHC (RBC) [Mass/Vol] 33.4 g/dL 32-36 [facility] Mean platelet volume determi nationOrdered By: Catia Christian on 09-08-2024 Platelet mean volume (Bld) [Entitic vol] 10.8 fL 6.2-12.0 [facility] Monocyte percentageOrdered B y: Catia Christian on 09-08-2024 Monocytes/100 WBC (Bld) 10.9 % High 0-10 [facility] Neutrophil percentageOrdered By: Catia Christian on 09-08-2024 Neutrophils/100 WBC (Bld) 63.0 % 47-70 [facility] Nucleated red blood cell per centageOrdered By: Catia Christian on 09-08-2024 Nucleated RBC/100 WBC (Bld) [Ratio] 0 % 0-5 [facility] Platelet countOrdered By: Rosalee Christian on 09-08-2024 Platelets (Bld) [#/Vol] 260 10*3/uL 150-450 [facility] Potassium measurement (mass/ volume)Ordered By: Catia Christian on 09-08-2024 Potassium (Unsp spec) [Mass/Vol] 3.8 mmol/L 3.3-5.1 [facility] RBC Auto (Bld) [#/Vol]Ordere d By: Catia Christian on 09-08-2024 RBC (Bld) [#/Vol] 4.80 10*6/uL 4.2-5.4 [facility] Serum creatinine measurement (mass/volume)Ordered By: Catia Christian on 09-08-2024 Creatinine [Mass/Vol] 0.65 mg/dL Low 0.70-1.20 [facility] Serum globulin measurementOr dered By: Catia Christian on 09-08-2024 Globulin (S) [Mass/Vol] 3.4 g/dL 2.2-4.2 [facility] Serum glucose measurement (m ass/volume)Ordered By: Catia Christian on 09-08-2024 Glucose [Mass/Vol] 149 mg/dL High 70-99 [facility] Serum or plasma alanine myers otransferase (ALT) measurementOrdered By: Catia Christian on 09-08-2024 ALT [Catalytic activity/Vol] 23 U/L <35 [facility] Serum or plasma albumin nancy urement (mass/volume)Ordered By: Catia Christian on 09-08-2024 Albumin [Mass/Vol] 4.3 g/dL 3.4-4.8 [facility] Serum or plasma albumin/glob ulin mass ratioOrdered By: Catia Christian on 09-08-2024 Albumin/Globulin [Mass ratio] 1.3 {ratio} 0.9-2.4 [facility] Serum or plasma alkaline lindsey sphatase measurementOrdered By: Catia Christian on 09-08-2024 ALP [Catalytic activity/Vol] 86 U/L 35-104 [facility] Serum or plasma calcium nancy urement (mass/volume)Ordered By: Catia Christian on 09-08-2024 Calcium [Mass/Vol] 10.3 mg/dL 7.6-11.0 [facility] Serum or plasma creatine kin ase activityOrdered By: Catia Christian on 09-08-2024 CK [Catalytic activity/Vol] 34 U/L 24-195 [facility] Serum or plasma urea nitroge n measurement (mass/volume)Ordered By: Catia Christian on 09-08-2024 Urea nitrogen [Mass/Vol] 9 mg/dL 4-19 [facility] Sodium levelOrdered By: Catia Christian on 09-08-2024 Sodium [Moles/Vol] 140 mmol/L 133-145 [facility] T4 Free Directon 09-08-2024 T4 FREE DIRECT 1.70 ng/dL High 0.76-1.46 [facility] Comment on above: Order Comment: DR. Carmen RODRGIUEZ GETS CPK, CMP, CBCD AND ALDODASE. DR.LISA CHRISTIAN GETS TSH, T3F T4F Performed By: #### L 3100.7000, L500.4050, L501.3620, L100.0100 #### [facility] [address] [place], [place], [id number] T4 freeOrdered By: Catia lowery on 09-08-2024 Free T4 [Mass/Vol] 1.70 ng/dL High 0.76-1.46 [facility] TSH DL <= 0.005 mIU/L QnOrde red By: Catia Christian on 09-08-2024 TSH Qn 0.123 uIU/mL Low 0.300-4.200 [facility] Thyroid Stim Hormone (TSH)on 09-08-2024 TSH 0.123 uIU/mL Low 0.300-4.200 [facility] Comment on above: Order Comment: DR. Carmen RODRIGUEZ GETS CPK, CMP, CBCD AND ALDODASE. DR.LISA CHRISTIAN GETS TSH, T3F T4F Performed By: #### L 3100.7000, L500.4050, L501.3620, L100.0100 #### [facility] [address] [place], [address] Total proteinOrdered By: Antonette Christian on 09-08-2024 Protein [Mass/Vol] 7.7 g/dL 5.9-8.4 [facility] White blood cell (WBC) count Ordered By: Catia Christian on 09-08-2024 WBC (Bld) [#/Vol] 7.6 10*3/uL 4.4-11.0 [facility] Absolute lymphocyte countOrd ered By: Natalie Rodriguez on 06-12-2024 Lymphocytes Auto (Unsp spec) [#/Vol] 1.45 10*3/uL 0.83-4.51 [facility] Absolute neutrophil countOrd ered By: Natalie Rodriguez on 06-12-2024 Neutrophils (Bld) [#/Vol] 4.5 10*3/uL 2.0-7.7 [facility] Anion gap in Serum or Plasma Ordered By: Natalie Rodriguez on 06-12-2024 Anion gap [Moles/Vol] 12 mmol/L 5-15 [facility] Automated lymphocyte count a s percentage of total leukocytesOrdered By: Natalie Rodriguez on 06-12-2024 Lymphocytes/100 WBC Auto (Unsp spec) 21.6 % 19-41 [facility] BUN/creatinine ratioOrdered By: Natalie Angki on 06-12-2024 Urea nitrogen/Creatinine [Mass ratio] 15.2 mg/mg 10-20 [facility] Basophil percentageOrdered B y: Natalie Jennifer on 06-12-2024 Basophils/100 WBC (Bld) 1.3 % High 0-1 [facility] Bilirubin, totalOrdered By: Natalie Jennifer on 06-12-2024 Bilirubin [Mass/Vol] 0.51 mg/dL 0.00-1.30 [facility] CBC W/Diff, Automatedon Absolute Lymph 1.45 X10 3/uL Normal 0.83-4.51 [facility] Comment on above: Performed By: #### L 500.4050, L100.0100, L501.3620 #### [facility] [address] [place], [address] Absolute Neut 4.5 X10 3/uL Normal 2.0-7.7 [facility] Comment on above: Performed By: #### L 500.4050, L100.0100, L501.3620 #### [facility] [address] [place], [address] Basophils/100 WBC (Bld) 1.3 % High 0-1 [facility] Comment on above: Performed By: #### L 500.4050, L100.0100, L501.3620 #### [facility] [address] [place], [address] Eosinophils/100 WBC (Bld) 1.0 % Normal 0-5 [facility] Comment on above: Performed By: #### L 500.4050, L100.0100, L501.3620 #### [facility] [address] [place], [address] Erythrocyte distribution width (RBC) [Ratio] 13.5 % Normal 11.6-14.6 [facility] Comment on above: Performed By: #### L 500.4050, L100.0100, L501.3620 #### [facility] [address] [place], [address] Hematocrit (Bld) [Volume fraction] 41.9 % Normal 37-47 [facility] Comment on above: Performed By: #### L 500.4050, L100.0100, L501.3620 #### [facility] [address] [place], [address] Hemoglobin (Bld) [Mass/Vol] 14.4 g/dL Normal 12.0-15.0 [facility] Comment on above: Performed By: #### L 500.4050, L100.0100, L501.3620 #### [facility] [address] [place], [address] IG% 0.400 Normal 0.0-0.9 [facility] Comment on above: Result Comment: IG% - Immature Granulocytes (promyelocytes, myelocytes and metamyelocytes) > 1% indicates that a LEFT SHIFT is Present. Performed By: #### L 500.4050, L100.0100, L501.3620 #### [facility] [address] [place], [address] Lymphocytes/100 WBC (Bld) 21.6 % Normal 19-41 [facility] Comment on above: Performed By: #### L 500.4050, L100.0100, L501.3620 #### [facility] [address] [place], [address] MCH (RBC) [Entitic mass] 31.6 pg Normal 27.0-32.0 [facility] Comment on above: Performed By: #### L 500.4050, L100.0100, L501.3620 #### [facility] [address] [place], [address] MCHC (RBC) [Mass/Vol] 34.4 g/dL Normal 32-36 [facility] Comment on above: Performed By: #### L 500.4050, L100.0100, L501.3620 #### [facility] [address] [place], [address] MCV (RBC) [Entitic vol] 91.9 fL Normal 81-99 [facility] Comment on above: Performed By: #### L 500.4050, L100.0100, L501.3620 #### [facility] [address] [place], [address] Monocytes/100 WBC (Bld) 8.5 % Normal 0-10 [facility] Comment on above: Performed By: #### L 500.4050, L100.0100, [id number] #### [facility] [address] [place], [address] Neutrophils/100 WBC (Bld) 67.2 % Normal 47-70 [facility] Comment on above: Performed By: #### L 500.4050, L100.0100, [id number] #### [facility] [address] [place], [address] Nucleated RBC (Bld) [#/Vol] 0 10*3/uL Normal 0-5 [facility] Comment on above: Performed By: #### L 500.4050, L100.0100, L501.3620 #### [facility] [address] [place], [address] Platelet mean volume (Bld) [Entitic vol] 9.7 fL Normal 6.2-12.0 [facility] Comment on above: Performed By: #### L 500.4050, L100.0100, [id number] #### [facility] [address] [place], [address] Platelets (Bld) [#/Vol] 318 10*3/uL Normal 150-450 [facility] Comment on above: Performed By: #### L 500.4050, L100.0100, [id number] #### [facility] [address] [place], [address] RBC (Bld) [#/Vol] 4.56 10*6/uL Normal 4.2-5.4 [facility] Comment on above: Performed By: #### L 500.4050, L100.0100, L501.3620 #### [facility] [address] [place], [address] RDW SD 44.8 fl High 35.1-43.9 [facility] Comment on above: Performed By: #### L 500.4050, L100.0100, L501.3620 #### [facility] [address] [place], [address] WBC (Bld) [#/Vol] 6.7 10*3/uL Normal 4.4-11.0 [facility] Comment on above: Performed By: #### L 500.4050, L100.0100, L501.3620 #### [facility] [address] [place], [address] CPK Total, Creatine Kinaseon 06-12-2024 CPK TOTAL 32 U/L Normal 24-195 [facility] Comment on above: Performed By: #### L 500.4050, L100.0100, L501.3620 #### [facility] [address] [place], [address] Carbon dioxide, total [Moles /volume] in Central venous bloodOrdered By: Natalie Rodriguez on 06-12-2024 CO2 [Moles/Vol] 21.9 mmol/L 21.0-32.0 [facility] Chloride assayOrdered By: Wilfrido Rodriguez on 06-12-2024 Chloride [Moles/Vol] 103 mmol/L 98-108 [facility] Comprehensive Metabolic Prof ilon 06-12-2024 Albumin [Mass/Vol] 4.0 g/dL Normal 3.4-4.8 [facility] Comment on above: Performed By: #### L 500.4050, L100.0100, L501.3620 #### [facility] [address] [place], [address] Albumin/Globulin [Mass ratio] 1.0 {ratio} Normal 0.9-2.4 [facility] Comment on above: Performed By: #### L 500.4050, L100.0100, L501.3620 #### [facility] [address] [place], [address] ALK PHOS 64 U/L Normal 35-104 [facility] Comment on above: Performed By: #### L 500.4050, L100.0100, L501.3620 #### [facility] [address] [place], [address] ALT [Catalytic activity/Vol] 36 U/L High <=34 [facility] Comment on above: Performed By: #### L 500.4050, L100.0100, L501.3620 #### [facility] [address] [place], [address] AST [Catalytic activity/Vol] 29 U/L Normal <=31 [facility] Comment on above: Performed By: #### L 500.4050, L100.0100, L501.3620 #### [facility] [address] [place], [address] Bilirubin [Mass/Vol] 0.51 mg/dL Normal 0.00-1.30 [facility] Comment on above: Performed By: #### L 500.4050, L100.0100, [id number] #### [facility] [address] [place], [address] BUN/CRE 15.2 RATIO Normal 10-20 [facility] Comment on above: Performed By: #### L 500.4050, L100.0100, L501.3620 #### [facility] [address] [place], [address] Calcium [Mass/Vol] 9.7 mg/dL Normal 7.6-11.0 [facility] Comment on above: Performed By: #### L 500.4050, L100.0100, L501.3620 #### [facility] [address] [place], [address] Chloride [Moles/Vol] 103 mmol/L Normal 98-108 [facility] Comment on above: Performed By: #### L 500.4050, L100.0100, L501.3620 #### [facility] [address] [place], [address] CO2 [Moles/Vol] 21.9 mmol/L Normal 21.0-32.0 [facility] Comment on above: Performed By: #### L 500.4050, L100.0100, L501.3620 #### [facility] [address] [place], [address] Creatinine [Mass/Vol] 0.59 mg/dL Low 0.70-1.20 [facility] Comment on above: Performed By: #### L 500.4050, L100.0100, [id number] #### [facility] [address] [place], [address] GAP 12 Normal 5-15 [facility] Comment on above: Performed By: #### L 500.4050, L100.0100, L501.3620 #### [facility] [address] [place], [address] GFR/1.73 sq M.predicted among non-blacks MDRD (S/P/Bld) [Vol rate/Area] 87 mL/min/{1.73_m2} Normal >60 [facility] Comment on above: Result Comment: mL/m in/1.73m2 CKD-EPI Creatinine Equation (2020) Performed By: #### L 500.4050, L100.0100, L501.3620 #### [facility] [address] [place], [address] Globulin (S) [Mass/Vol] 4.1 g/dL Normal 2.2-4.2 [facility] Comment on above: Performed By: #### L 500.4050, L100.0100, L501.3620 #### [facility] [address] [place], [address] Glucose [Mass/Vol] 176 mg/dL High 70-99 [facility] Comment on above: Performed By: #### L 500.4050, L100.0100, L501.3620 #### [facility] [address] [place], [address] Potassium [Moles/Vol] 3.9 mmol/L Normal 3.3-5.1 [facility] Comment on above: Performed By: #### L 500.4050, L100.0100, L501.3620 #### [facility] [address] [place], [address] Sodium [Moles/Vol] 136 mmol/L Normal 133-145 [facility] Comment on above: Performed By: #### L 500.4050, L100.0100, L501.3620 #### [facility] [address] [place], [address] T PROT 8.1 g/dL Normal 5.9-8.4 [facility] Comment on above: Performed By: #### L 500.4050, L100.0100, L501.3620 #### [facility] [address] [place], [address] Urea nitrogen [Mass/Vol] 9 mg/dL Normal 4-19 [facility] Comment on above: Performed By: #### L 500.4050, L100.0100, L501.3620 #### [facility] [address] [place], [address] Eosinophil percentageOrdered By: Natalie Rodriguez on 06-12-2024 Eosinophils/100 WBC (Bld) 1.0 % 0-5 [facility] Erythrocyte distribution wid th ratioOrdered By: Natalie Rodriguez on 06-12-2024 Erythrocyte distribution width (RBC) [Ratio] 13.5 % 11.6-14.6 [facility] Erythrocyte distribution wid th standard deviationOrdered By: Natalie Rodriguez on 06-12-2024 Erythrocyte distribution width (RBC) [Ratio] 44.8 fl High 35.1-43.9 [facility] Glomerular filtration rate ( GFR) estimation/1.73 sq m using serum, plasma, or whole bOrdered By: Natalie Rodriguez on 06-12-2024 GFR/1.73 sq M.predicted among non-blacks MDRD (S/P/Bld) [Vol rate/Area] 87 mL/min/{1.73_m2} >60 [facility] Comment on above: mL/min/1.73m2 CKD-EP I Creatinine Equation (2020) Hematocrit Auto (Bld) [Volum e fraction]Ordered By: Natalie Rodriguez on 06-12-2024 Hematocrit (Bld) [Volume fraction] 41.9 % 37-47 [facility] Hemoglobin measurementOrdere d By: Natalie Rodriguez on 06-12-2024 Hemoglobin (Bld) [Mass/Vol] 14.4 g/dL 12.0-15.0 [facility] Immature granulocytes/100 WB C Auto (Bld)Ordered By: Natalie Rodriguez on 06-12-2024 Immature granulocytes/100 WBC (Bld) 0.400 % 0.0-0.9 [facility] Comment on above: IG% - Immature Granu locytes (promyelocytes, myelocytes and metamyelocytes) > 1% indicates that a LEFT SHIFT is Present. Laboratory - Chemistry and C hemistry - challengeOrdered By: Natalie Rodriguez on 06-12-2024 AST [Catalytic activity/Vol] 29 U/L <32 [facility] MCV (mean corpuscular volume ) determinationOrdered By: Natalie Rodriguez on 06-12-2024 MCV (RBC) [Entitic vol] 91.9 fL 81-99 [facility] Mean corpuscular hemoglobin (MCH) determinationOrdered By: Natalie Rodriguez on 06-12-2024 MCH (RBC) [Entitic mass] 31.6 pg 27.0-32.0 [facility] Mean corpuscular hemoglobin concentration (MCHC) determinationOrdered By: Natalie Rodriguez on 06-12-2024 MCHC (RBC) [Mass/Vol] 34.4 g/dL 32-36 [facility] Mean platelet volume determi nationOrdered By: Natalie Rodriguez on 06-12-2024 Platelet mean volume (Bld) [Entitic vol] 9.7 fL 6.2-12.0 [facility] Monocyte percentageOrdered B y: Natalie Rodriguez on 06-12-2024 Monocytes/100 WBC (Bld) 8.5 % 0-10 [facility] Neutrophil percentageOrdered By: Natalie Rodriguez on 06-12-2024 Neutrophils/100 WBC (Bld) 67.2 % 47-70 [facility] Nucleated red blood cell per centageOrdered By: Natalie Rodriguez on 06-12-2024 Nucleated RBC/100 WBC (Bld) [Ratio] 0 % 0-5 [facility] Platelet countOrdered By: Wilfrido Rodriguez on 06-12-2024 Platelets (Bld) [#/Vol] 318 10*3/uL 150-450 [facility] Potassium measurement (mass/ volume)Ordered By: Natalie Rodriguez on 06-12-2024 Potassium (Unsp spec) [Mass/Vol] 3.9 mmol/L 3.3-5.1 [facility] RBC Auto (Bld) [#/Vol]Ordere d By: Natalie Rodriguez on 06-12-2024 RBC (Bld) [#/Vol] 4.56 10*6/uL 4.2-5.4 [facility] Serum creatinine measurement (mass/volume)Ordered By: Natalie Rodriguez on 06-12-2024 Creatinine [Mass/Vol] 0.59 mg/dL Low 0.70-1.20 [facility] Serum globulin measurementOr dered By: Natalie Rodriguez on 06-12-2024 Globulin (S) [Mass/Vol] 4.1 g/dL 2.2-4.2 [facility] Serum glucose measurement (m ass/volume)Ordered By: Natalie Rodriguez on 06-12-2024 Glucose [Mass/Vol] 176 mg/dL High 70-99 [facility] Serum or plasma alanine myers otransferase (ALT) measurementOrdered By: Natalie Rodriguez on 06-12-2024 ALT [Catalytic activity/Vol] 36 U/L High <35 [facility] Serum or plasma albumin nancy urement (mass/volume)Ordered By: Natalie Rodriguez on 06-12-2024 Albumin [Mass/Vol] 4.0 g/dL 3.4-4.8 [facility] Serum or plasma albumin/glob ulin mass ratioOrdered By: Natalie Rodriguez on 06-12-2024 Albumin/Globulin [Mass ratio] 1.0 {ratio} 0.9-2.4 [facility] Serum or plasma alkaline lindsey sphatase measurementOrdered By: Natalie Rodriguez on 06-12-2024 ALP [Catalytic activity/Vol] 64 U/L 35-104 [facility] Serum or plasma calcium nancy urement (mass/volume)Ordered By: Natalie Rodriguez on 06-12-2024 Calcium [Mass/Vol] 9.7 mg/dL 7.6-11.0 [facility] Serum or plasma creatine kin ase activityOrdered By: Natalie Rodriguez on 06-12-2024 CK [Catalytic activity/Vol] 32 U/L 24-195 [facility] Serum or plasma urea nitroge n measurement (mass/volume)Ordered By: Natalie Rodriguez on 06-12-2024 Urea nitrogen [Mass/Vol] 9 mg/dL 4-19 [facility] Sodium levelOrdered By: Shawna Rodriguez on 06-12-2024 Sodium [Moles/Vol] 136 mmol/L 133-145 [facility] Total proteinOrdered By: Layne Rodriguez on 06-12-2024 Protein [Mass/Vol] 8.1 g/dL 5.9-8.4 [facility] White blood cell (WBC) count Ordered By: Natalie Rodriguez on 06-12-2024 WBC (Bld) [#/Vol] 6.7 10*3/uL 4.4-11.0 [facility] Absolute lymphocyte countOrd ered By: Catia Christian on 04-22-2024 Lymphocytes Auto (Unsp spec) [#/Vol] 1.19 10*3/uL 0.83-4.51 [facility] Absolute neutrophil countOrd ered By: Catia Christian on 04-22-2024 Neutrophils (Bld) [#/Vol] 4.2 10*3/uL 2.0-7.7 [facility] Anion gap in Serum or Plasma Ordered By: Catia Christian on 04-22-2024 Anion gap [Moles/Vol] 13 mmol/L 5-15 [facility] Automated lymphocyte count a s percentage of total leukocytesOrdered By: Catia Christian on 04-22-2024 Lymphocytes/100 WBC Auto (Unsp spec) 19.1 % 19-41 [facility] BUN/creatinine ratioOrdered By: Catia Christian on 04-22-2024 Urea nitrogen/Creatinine [Mass ratio] 14.5 mg/mg 10-20 [facility] Basophil percentageOrdered B y: Catia Christian on 04-22-2024 Basophils/100 WBC (Bld) 1.1 % High 0-1 [facility] Bilirubin, totalOrdered By: Catia Christian on 04-22-2024 Bilirubin [Mass/Vol] 0.52 mg/dL 0.00-1.30 [facility] CBC W/Diff, Automatedon 04-05 Absolute Lymph 1.19 X10 3/uL Normal 0.83-4.51 [facility] Comment on above: Performed By: #### L 501.29261, L506.0400, L501.3620, L500.4050, L100.0100, L501.9520 #### [facility] [place], [address] Absolute Neut 4.2 X10 3/uL Normal 2.0-7.7 [facility] Comment on above: Performed By: #### L 501.77143, L506.0400, L501.3620, L500.4050, L100.0100, L501.9520 #### [facility] [address] [place], [address] Basophils/100 WBC (Bld) 1.1 % High 0-1 [facility] Comment on above: Performed By: #### L 501.63049, L506.0400, L501.3620, L500.4050, L100.0100, L501.9520 #### [facility] [address] [place], [address] Eosinophils/100 WBC (Bld) 0.8 % Normal 0-5 [facility] Comment on above: Performed By: #### L 501.59927, L506.0400, L501.3620, L500.4050, L100.0100, L501.9520 #### [facility] [address] [place], [address] Erythrocyte distribution width (RBC) [Ratio] 14.4 % Normal 11.6-14.6 [facility] Comment on above: Performed By: #### L 501.80172, L506.0400, L501.3620, L500.4050, L100.0100, L501.9520 #### [facility] [address] [place], [address] Hematocrit (Bld) [Volume fraction] 41.3 % Normal 37-47 [facility] Comment on above: Performed By: #### L 501.50072, L506.0400, L501.3620, L500.4050, L100.0100, L501.9520 #### [facility] [address] [place], [address] Hemoglobin (Bld) [Mass/Vol] 14.4 g/dL Normal 12.0-15.0 [facility] Comment on above: Performed By: #### L 501.62032, L506.0400, L501.3620, L500.4050, L100.0100, L501.9520 #### [facility] [address] [place], [address] IG% 0.500 Normal 0.0-0.9 [facility] Comment on above: Result Comment: IG% - Immature Granulocytes (promyelocytes, myelocytes and metamyelocytes) > 1% indicates that a LEFT SHIFT is Present. Performed By: #### L 501.43730, L506.0400, L501.3620, L500.4050, L100.0100, L501.9520 #### [facility] [address] [place], [address] Lymphocytes/100 WBC (Bld) 19.1 % Normal 19-41 [facility] Comment on above: Performed By: #### L 501.99080, L506.0400, L501.3620, L500.4050, L100.0100, L501.9520 #### [facility] [address] [place], [address] MCH (RBC) [Entitic mass] 31.8 pg Normal 27.0-32.0 [facility] Comment on above: Performed By: #### L 501.04870, L506.0400, L501.3620, L500.4050, L100.0100, L501.9520 #### [facility] [address] [place], [address] MCHC (RBC) [Mass/Vol] 34.9 g/dL Normal 32-36 [facility] Comment on above: Performed By: #### L 501.46914, L506.0400, L501.3620, L500.4050, L100.0100, L501.9520 #### [facility] [address] [place], [address] MCV (RBC) [Entitic vol] 91.2 fL Normal 81-99 [facility] Comment on above: Performed By: #### L 501.06621, L506.0400, L501.3620, L500.4050, L100.0100, L501.9520 #### [facility] [address] [place], [address] Monocytes/100 WBC (Bld) 11.4 % High 0-10 [facility] Comment on above: Performed By: #### L 501.87370, L506.0400, L501.3620, L500.4050, L100.0100, L501.9520 #### [facility] [address] [place], [address] Neutrophils/100 WBC (Bld) 67.1 % Normal 47-70 [facility] Comment on above: Performed By: #### L 501.28785, L506.0400, L501.3620, L500.4050, L100.0100, L501.9520 #### [facility] [address] [place], [address] Nucleated RBC (Bld) [#/Vol] 0 10*3/uL Normal 0-5 [facility] Comment on above: Performed By: #### L 501.57812, L506.0400, L501.3620, L500.4050, L100.0100, L501.9520 #### [facility] [address] [place], [address] Platelet mean volume (Bld) [Entitic vol] 9.9 fL Normal 6.2-12.0 [facility] Comment on above: Performed By: #### L 501.71258, L506.0400, L501.3620, L500.4050, L100.0100, L501.9520 #### [facility] [address] [place], [address] Platelets (Bld) [#/Vol] 322 10*3/uL Normal 150-450 [facility] Comment on above: Performed By: #### L 501.02931, L506.0400, L501.3620, L500.4050, L100.0100, L501.9520 #### [facility] [address] [place], [address] RBC (Bld) [#/Vol] 4.53 10*6/uL Normal 4.2-5.4 [facility] Comment on above: Performed By: #### L 501.64259, L506.0400, L501.3620, L500.4050, L100.0100, L501.9520 #### [facility] [address] [place], [address] RDW SD 47.0 fl High 35.1-43.9 [facility] Comment on above: Performed By: #### L 501.33244, L506.0400, L501.3620, L500.4050, L100.0100, L501.9520 #### [facility] [address] [place], [address] WBC (Bld) [#/Vol] 6.2 10*3/uL Normal 4.4-11.0 [facility] Comment on above: Performed By: #### L 501.14230, L506.0400, L501.3620, L500.4050, L100.0100, L501.9520 #### [facility] [address] [place], [address] CPK Total, Creatine Kinaseon 04-22-2024 CPK TOTAL 36 U/L Normal 24-195 [facility] Comment on above: Order Comment: DR REHAN NUÑEZ GETS RESULTS FOR CMP,CBCD,CPK AND GETSRESULTS FOR TSH,T4F,TF3 Performed By: #### L 3100.7000, L500.4050, L501.3620, L100.0100 #### [facility] [address] [place], [address] Carbon dioxide, total [Moles /volume] in Central venous bloodOrdered By: Catia Christian on 04-22-2024 CO2 [Moles/Vol] 19.9 mmol/L Low 21.0-32.0 [facility] Chloride assayOrdered By: Rosalee Christian on 04-22-2024 Chloride [Moles/Vol] 103 mmol/L 98-108 [facility] Comprehensive Metabolic Prof ilon 04-22-2024 Albumin [Mass/Vol] 4.0 g/dL Normal 3.4-4.8 [facility] Comment on above: Order Comment: DR REHAN NUÑEZ GETS RESULTS FOR CMP,CBCD,CPK AND GETS RESULTS FOR TSH,T4F,TF3 Performed By: #### L 501.74960, L506.0400, L501.3620, L500.4050, L100.0100, L501.9520 #### [facility] [address] [place], [address] Albumin/Globulin [Mass ratio] 1.0 {ratio} Normal 0.9-2.4 [facility] Comment on above: Order Comment: DR REHAN NUÑEZ GETS RESULTS FOR CMP,CBCD,CPK AND GETS RESULTS FOR TSH,T4F,TF3 Performed By: #### L 501.72622, L506.0400, L501.3620, L500.4050, L100.0100, L501.9520 #### [facility] [address] [place], [address] ALK PHOS 81 U/L Normal 35-104 [facility] Comment on above: Order Comment: DR REHAN NUÑEZ GETS RESULTS FOR CMP,CBCD,CPK AND GETS RESULTS FOR TSH,T4F,TF3 Performed By: #### L 501.92686, L506.0400, L501.3620, L500.4050, L100.0100, L501.9520 #### [facility] [address] [place], [address] ALT [Catalytic activity/Vol] 36 U/L High <=34 [facility] Comment on above: Order Comment: DR REHAN NUÑEZ GETS RESULTS FOR CMP,CBCD,CPK AND GETS RESULTS FOR TSH,T4F,TF3 Performed By: #### L 501.36565, L506.0400, L501.3620, L500.4050, L100.0100, L501.9520 #### [facility] [address] [place], [address] AST [Catalytic activity/Vol] 30 U/L Normal <=31 [facility] Comment on above: Order Comment: DR REHAN NUÑEZ GETS RESULTS FOR CMP,CBCD,CPK AND GETS RESULTS FOR TSH,T4F,TF3 Performed By: #### L 501.81597, L506.0400, L501.3620, L500.4050, L100.0100, L501.9520 #### [facility] [address] [place], [address] Bilirubin [Mass/Vol] 0.52 mg/dL Normal 0.00-1.30 [facility] Comment on above: Order Comment: DR REHAN NUÑEZ GETS RESULTS FOR CMP,CBCD,CPK AND GETS RESULTS FOR TSH,T4F,TF3 Performed By: #### L 501.15169, L506.0400, L501.3620, L500.4050, L100.0100, L501.9520 #### [facility] [address] [place], [address] BUN/CRE 14.5 RATIO Normal 10-20 [facility] Comment on above: Order Comment: DR REHAN NUÑEZ GETS RESULTS FOR CMP,CBCD,CPK AND GETS RESULTS FOR TSH,T4F,TF3 Performed By: #### L 501.31929, L506.0400, L501.3620, L500.4050, L100.0100, L501.9520 #### [facility] [address] [place], [address] Calcium [Mass/Vol] 9.3 mg/dL Normal 7.6-11.0 [facility] Comment on above: Order Comment: DR REHAN NUÑEZ GETS RESULTS FOR CMP,CBCD,CPK AND GETS RESULTS FOR TSH,T4F,TF3 Performed By: #### L 501.26584, L506.0400, L501.3620, L500.4050, L100.0100, L501.9520 #### [facility] [address] [place], [address] Chloride [Moles/Vol] 103 mmol/L Normal 98-108 [facility] Comment on above: Order Comment: DR REHAN NUÑEZ GETS RESULTS FOR CMP,CBCD,CPK AND GETS RESULTS FOR TSH,T4F,TF3 Performed By: #### L 501.16512, L506.0400, L501.3620, L500.4050, L100.0100, L501.9520 #### [facility] [address] [place], [address] CO2 [Moles/Vol] 19.9 mmol/L Low 21.0-32.0 [facility] Comment on above: Order Comment: DR REHAN NUÑEZ GETS RESULTS FOR CMP,CBCD,CPK AND GETS RESULTS FOR TSH,T4F,TF3 Performed By: #### L 501.31568, L506.0400, L501.3620, L500.4050, L100.0100, L501.9520 #### [facility] [address] [place], [address] Creatinine [Mass/Vol] 0.62 mg/dL Low 0.70-1.20 [facility] Comment on above: Order Comment: DR REHAN NUÑEZ GETS RESULTS FOR CMP,CBCD,CPK AND GETS RESULTS FOR TSH,T4F,TF3 Performed By: #### L 501.29979, L506.0400, L501.3620, L500.4050, L100.0100, L501.9520 #### [facility] [address] [place], [address] GAP 13 Normal 5-15 [facility] Comment on above: Order Comment: DR REHAN NUÑEZ GETS RESULTS FOR CMP,CBCD,CPK AND GETS RESULTS FOR TSH,T4F,TF3 Performed By: #### L 501.98608, L506.0400, L501.3620, L500.4050, L100.0100, L501.9520 #### [facility] [address] [place], [address] GFR/1.73 sq M.predicted among non-blacks MDRD (S/P/Bld) [Vol rate/Area] 86 mL/min/{1.73_m2} Normal >60 [facility] Comment on above: Order Comment: DR REHAN NUÑEZ GETS RESULTS FOR CMP,CBCD,CPK AND GETS RESULTS FOR TSH,T4F,TF3 Result Comment: mL/m in/1.73m2 CKD-EPI Creatinine Equation (2020) Performed By: #### L 501.23226, L506.0400, L501.3620, L500.4050, L100.0100, L501.9520 #### [facility] [address] [place], [address] Globulin (S) [Mass/Vol] 4.1 g/dL Normal 2.2-4.2 [facility] Comment on above: Order Comment: DR REHAN NUÑEZ GETS RESULTS FOR CMP,CBCD,CPK AND GETS RESULTS FOR TSH,T4F,TF3 Performed By: #### L 501.29052, L506.0400, L501.3620, L500.4050, L100.0100, L501.9520 #### [facility] [address] [place], [address] Glucose [Mass/Vol] 213 mg/dL High 70-99 [facility] Comment on above: Order Comment: DR REHAN NUÑEZ GETS RESULTS FOR CMP,CBCD,CPK AND GETS RESULTS FOR TSH,T4F,TF3 Performed By: #### L 501.29134, L506.0400, L501.3620, L500.4050, L100.0100, L501.9520 #### [facility] [address] [place], [address] Potassium [Moles/Vol] 3.6 mmol/L Normal 3.3-5.1 [facility] Comment on above: Order Comment: DR REHAN NUÑEZ GETS RESULTS FOR CMP,CBCD,CPK AND GETS RESULTS FOR TSH,T4F,TF3 Performed By: #### L 501.57916, L506.0400, L501.3620, L500.4050, L100.0100, L501.9520 #### [facility] [address] [place], [address] Sodium [Moles/Vol] 136 mmol/L Normal 133-145 [facility] Comment on above: Order Comment: DR REHAN NUÑEZ GETS RESULTS FOR CMP,CBCD,CPK AND GETS RESULTS FOR TSH,T4F,TF3 Performed By: #### L 501.67140, L506.0400, L501.3620, L500.4050, L100.0100, L501.9520 #### [facility] [address] [place], [address] T PROT 8.1 g/dL Normal 5.9-8.4 [facility] Comment on above: Order Comment: DR REHAN NUÑEZ GETS RESULTS FOR CMP,CBCD,CPK AND GETS RESULTS FOR TSH,T4F,TF3 Performed By: #### L 501.50424, L506.0400, L501.3620, L500.4050, L100.0100, L501.9520 #### [facility] [address] [place], [address] Urea nitrogen [Mass/Vol] 9 mg/dL Normal 4-19 [facility] Comment on above: Order Comment: DR REHAN NUÑEZ GETS RESULTS FOR CMP,CBCD,CPK AND GETS RESULTS FOR TSH,T4F,TF3 Performed By: #### L 501.88964, L506.0400, L501.3620, L500.4050, L100.0100, L501.9520 #### [facility] [address] [place], [address] Eosinophil percentageOrdered By: Catia Christian on 04-22-2024 Eosinophils/100 WBC (Bld) 0.8 % 0-5 [facility] Erythrocyte distribution wid th ratioOrdered By: Catia Christian on 04-22-2024 Erythrocyte distribution width (RBC) [Ratio] 14.4 % 11.6-14.6 [facility] Erythrocyte distribution wid th standard deviationOrdered By: Catia Christian on 04-22-2024 Erythrocyte distribution width (RBC) [Entitic vol] 47.0 fL High 35.1-43.9 [facility] Erythrocyte distribution width (RBC) [Ratio] 47.0 fl High 35.1-43.9 [facility] Free T3on 04-22-2024 Free T3 [Mass/Vol] 3.7 pg/mL Normal 2.18-3.98 [facility] Comment on above: Order Comment: DR REHAN NUÑEZ GETS RESULTS FOR CMP,CBCD,CPK AND GETS RESULTS FOR TSH,T4F,TF3 Performed By: #### L 501.65217, L506.0400, L501.3620, L500.4050, L100.0100, L501.9520 #### [facility] [place], [address] Free S4Imfkhja By: Catia lowery on 04-22-2024 Free T3 [Mass/Vol] 3.7 pg/mL 2.18-3.98 [facility] Free Triiodothyronine (T3) pg/dL 3.7 pg/mL 2.18-3.98 [facility] GFR/1.73 sq M.predicted camila g non-blacks MDRD (S/P/Bld) [Vol rate/Area]Ordered By: Catia Christian on 04-22-2024 Estimated GFR (MDRD) Non-Af Amer 86 >60 [facility] Comment on above: mL/min/1.73m2 CKD-EP I Creatinine Equation (2020) Glomerular filtration rate ( GFR) estimation/1.73 sq m using serum, plasma, or whole bOrdered By: Catia Christian on 04-22-2024 GFR/1.73 sq M.predicted among non-blacks MDRD (S/P/Bld) [Vol rate/Area] 86 mL/min/{1.73_m2} >60 [facility] Comment on above: mL/min/1.73m2 CKD-EP I Creatinine Equation (2020) Hematocrit Auto (Bld) [Volum e fraction]Ordered By: Catia Christian on 04-22-2024 Hematocrit (Bld) [Volume fraction] 41.3 % 37-47 [facility] Hemoglobin measurementOrdere d By: Catia Christian on 04-22-2024 Hemoglobin (Bld) [Mass/Vol] 14.4 g/dL 12.0-15.0 [facility] Immature granulocytes/100 WB C Auto (Bld)Ordered By: Catia Christian on 04-22-2024 Immature granulocytes/100 WBC (Bld) 0.500 % 0.0-0.9 [facility] Comment on above: IG% - Immature Granu locytes (promyelocytes, myelocytes and metamyelocytes) > 1% indicates that a LEFT SHIFT is Present. Laboratory - Chemistry and C hemistry - challengeOrdered By: Catia Christian on 04-22-2024 AST [Catalytic activity/Vol] 30 U/L <32 [facility] Lymphocytes Auto (Unsp spec) [#/Vol]Ordered By: Catia Christian on 04-22-2024 Lymphocytes (Bld) [#/Vol] 1.19 10*3/uL 0.83-4.51 [facility] Lymphocytes/100 WBC Auto (Un sp spec)Ordered By: Catia Christian on 04-22-2024 Lymphocytes/100 WBC (Bld) 19.1 % 19-41 [facility] MCV (mean corpuscular volume ) determinationOrdered By: Catia Christian on 04-22-2024 MCV (RBC) [Entitic vol] 91.2 fL 81-99 [facility] Mean corpuscular hemoglobin (MCH) determinationOrdered By: Catia Christian on 04-22-2024 MCH (RBC) [Entitic mass] 31.8 pg 27.0-32.0 [facility] Mean corpuscular hemoglobin concentration (MCHC) determinationOrdered By: Catia Christian on 04-22-2024 MCHC (RBC) [Mass/Vol] 34.9 g/dL 32-36 [facility] Mean platelet volume determi nationOrdered By: Catia Christian on 04-22-2024 Platelet mean volume (Bld) [Entitic vol] 9.9 fL 6.2-12.0 [facility] Monocyte percentageOrdered B y: Catia Christian on 04-22-2024 Monocytes/100 WBC (Bld) 11.4 % High 0-10 [facility] Neutrophil percentageOrdered By: Catia Christian on 04-22-2024 Neutrophils/100 WBC (Bld) 67.1 % 47-70 [facility] Nucleated red blood cell per centageOrdered By: Catia Christian on 04-22-2024 Nucleated RBC/100 WBC (Bld) [Ratio] 0 % 0-5 [facility] Platelet countOrdered By: Rosalee Christian on 04-22-2024 Platelets (Bld) [#/Vol] 322 10*3/uL 150-450 [facility] Potassium (Unsp spec) [Mass/ Vol]Ordered By: Catia Christian on 04-22-2024 Potassium [Moles/Vol] 3.6 mmol/L 3.3-5.1 [facility] Potassium measurement (mass/ volume)Ordered By: Catia Christian on 04-22-2024 Potassium (Unsp spec) [Mass/Vol] 3.6 mmol/L 3.3-5.1 [facility] RBC Auto (Bld) [#/Vol]Ordere d By: Catia Christian on 04-22-2024 RBC (Bld) [#/Vol] 4.53 10*6/uL 4.2-5.4 [facility] Serum creatinine measurement (mass/volume)Ordered By: Catia Christian on 04-22-2024 Creatinine [Mass/Vol] 0.62 mg/dL Low 0.70-1.20 [facility] Serum globulin measurementOr dered By: Catia Christian on 04-22-2024 Globulin (S) [Mass/Vol] 4.1 g/dL 2.2-4.2 [facility] Serum glucose measurement (m ass/volume)Ordered By: Catia Christian on 04-22-2024 Glucose [Mass/Vol] 213 mg/dL High 70-99 [facility] Serum or plasma alanine myers otransferase (ALT) measurementOrdered By: Catia Christian on 04-22-2024 ALT [Catalytic activity/Vol] 36 U/L High <35 [facility] Serum or plasma albumin nancy urement (mass/volume)Ordered By: Catia Christian on 04-22-2024 Albumin [Mass/Vol] 4.0 g/dL 3.4-4.8 [facility] Serum or plasma albumin/glob ulin mass ratioOrdered By: Catia Christian on 04-22-2024 Albumin/Globulin [Mass ratio] 1.0 {ratio} 0.9-2.4 [facility] Serum or plasma alkaline lindsey sphatase measurementOrdered By: Catia Christian on 04-22-2024 ALP [Catalytic activity/Vol] 81 U/L 35-104 [facility] Serum or plasma calcium nancy urement (mass/volume)Ordered By: Catia Christian on 04-22-2024 Calcium [Mass/Vol] 9.3 mg/dL 7.6-11.0 [facility] Serum or plasma creatine kin ase activityOrdered By: Catia Christian on 04-22-2024 CK [Catalytic activity/Vol] 36 U/L 24-195 [facility] Serum or plasma urea nitroge n measurement (mass/volume)Ordered By: Catia Christian on 04-22-2024 Urea nitrogen [Mass/Vol] 9 mg/dL 4-19 [facility] Sodium levelOrdered By: Catia Christian on 04-22-2024 Sodium [Moles/Vol] 136 mmol/L 133-145 [facility] T4 Free Directon 04-22-2024 T4 FREE DIRECT 1.70 ng/dL High 0.76-1.46 [facility] Comment on above: Order Comment: DR REHAN NUÑEZ GETS RESULTS FOR CMP,CBCD,CPK AND GETSRESULTS FOR TSH,T4F,TF3 Performed By: #### L 3100.7000, L500.4050, L501.3620, L100.0100 #### [facility] [address] [place], [place], [id number] T4 freeOrdered By: Catia Delacruz s on 04-22-2024 Free T4 [Mass/Vol] 1.70 ng/dL High 0.76-1.46 [facility] TSH DL <= 0.005 mIU/L QnOrde red By: Catia Christian on 04-22-2024 Thyroid Stimulating Hormone (TSH) 0.162 uIU/mL Low 0.300-4.200 [facility] TSH Qn 0.162 uIU/mL Low 0.300-4.200 [facility] Thyroid Stim Hormone (TSH)on 04-22-2024 TSH 0.162 uIU/mL Low 0.300-4.200 [facility] Comment on above: Order Comment: DR REHAN NUÑEZ GETS RESULTS FOR CMP,CBCD,CPK AND GETSRESULTS FOR TSH,T4F,TF3 Performed By: #### L 3100.7000, L500.4050, L501.3620, L100.0100 #### [facility] [address] [place], [address] Total proteinOrdered By: Antonette Christian on 04-22-2024 Protein [Mass/Vol] 8.1 g/dL 5.9-8.4 [facility] White blood cell (WBC) count Ordered By: Catia Christian on 04-22-2024 WBC (Bld) [#/Vol] 6.2 10*3/uL 4.4-11.0 [facility] Aldolaseon 01-23-2024 ALDOLASE 4.8 U/L Normal 3.3-10.3 [facility] Comment on above: Result Comment: Perf ormed at: - [facility] [place] [address] [place], [place] [id number] Template Clerk: Harley Griffith PhD, Phone: [phone] Performed By: #### L 3100.7000, L500.4050, L501.3620, L100.0100 #### [facility] [address] [place], [address] Absolute neutrophil countOrd ered By: Natalie Rodriguez on 01-22-2024 Neutrophils (Bld) [#/Vol] 6.5 10*3/uL 2.0-7.7 [facility] Albumin to globulin ratioOrd ered By: Natalie Rodriguez on 01-22-2024 Albumin/Globulin [Mass ratio] 0.9 {ratio} 0.9-2.4 [facility] Aldolase [Catalytic activity /Vol]Ordered By: Natalie Rodriguez on 01-22-2024 Aldolase 4.8 U/L 3.3-10.3 [facility] Comment on above: Performed at: [facility] [address] [place] [address] [id number] Director: Harley Griffith PhD, Phone: [phone] Basophil percentageOrdered B y: Natalie Rodriguez on 01-22-2024 Basophils/100 WBC (Bld) 0.8 % 0-1 [facility] Bilirubin, totalOrdered By: Natalie Rodriguez on 01-22-2024 Bilirubin [Mass/Vol] 0.50 mg/dL 0.20-1.00 [facility] Comment on above: For patients on eltr ombopag therapy, use of Dimension [place] TBIL is not recommended. Blood urea nitrogen (BUN)/cr eatinine ratioOrdered By: Natalie Rodriguez on 01-22-2024 Urea nitrogen/Creatinine [Mass ratio] 18.8 mg/mg - [facility] CBC W/Diff, Automatedon 01-05 Absolute Lymph 1.91 X10 3/uL Normal 0.83-4.51 [facility] Comment on above: Performed By: #### L 3100.7000, L500.4050, L501.3620, L100.0100 #### [facility] [address] [place], [address] Absolute Neut 6.5 X10 3/uL Normal 2.0-7.7 [facility] Comment on above: Performed By: #### L 3100.7000, L500.4050, L501.3620, L100.0100 #### [facility] [address] [place], [address] Basophils/100 WBC (Bld) 0.8 % Normal 0-1 [facility] Comment on above: Performed By: #### L 3100.7000, L500.4050, L501.3620, L100.0100 #### [facility] [address] [place], [address] Eosinophils/100 WBC (Bld) 0.7 % Normal 0-5 [facility] Comment on above: Performed By: #### L 3100.7000, L500.4050, L501.3620, L100.0100 #### [facility] [address] [place], [address] Erythrocyte distribution width (RBC) [Ratio] 14.2 % Normal 11.6-14.6 [facility] Comment on above: Performed By: #### L 3100.7000, L500.4050, L501.3620, L100.0100 #### [facility] [address] [place], [address] Hematocrit (Bld) [Volume fraction] 45.7 % Normal 37-47 [facility] Comment on above: Performed By: #### L 3100.7000, L500.4050, L501.3620, L100.0100 #### [facility] [address] [place], [address] Hemoglobin (Bld) [Mass/Vol] 15.5 g/dL High 12.0-15.0 [facility] Comment on above: Performed By: #### L 3100.7000, L500.4050, L501.3620, L100.0100 #### [facility] [address] [place], [address] IG% 0.400 Normal 0.0-0.9 [facility] Comment on above: Result Comment: IG% - Immature Granulocytes (promyelocytes, myelocytes and metamyelocytes) > 1% indicates that a LEFT SHIFT is Present. Performed By: #### L 3100.7000, L500.4050, L501.3620, L100.0100 #### [facility] [address] [place], [address] Lymphocytes/100 WBC (Bld) 20.2 % Normal 19-41 [facility] Comment on above: Performed By: #### L 3100.7000, L500.4050, L501.3620, L100.0100 #### [facility] [address] [place], [address] MCH (RBC) [Entitic mass] 31.4 pg Normal 27.0-32.0 [facility] Comment on above: Performed By: #### L 3100.7000, L500.4050, L501.3620, L100.0100 #### [facility] [address] [place], [address] MCHC (RBC) [Mass/Vol] 33.9 g/dL Normal 32-36 [facility] Comment on above: Performed By: #### L 3100.7000, L500.4050, L501.3620, L100.0100 #### [facility] [address] [place], [address] MCV (RBC) [Entitic vol] 92.7 fL Normal 81-99 [facility] Comment on above: Performed By: #### L 3100.7000, L500.4050, L501.3620, L100.0100 #### [facility] [address] [place], [address] Monocytes/100 WBC (Bld) 9.7 % Normal 0-10 [facility] Comment on above: Performed By: #### L 3100.7000, L500.4050, L501.3620, L100.0100 #### [facility] [address] [place], [address] Neutrophils/100 WBC (Bld) 68.2 % Normal 47-70 [facility] Comment on above: Performed By: #### L 3100.7000, L500.4050, L501.3620, L100.0100 #### [facility] [address] [place], [address] Nucleated RBC (Bld) [#/Vol] 0 10*3/uL Normal 0-5 [facility] Comment on above: Performed By: #### L 3100.7000, L500.4050, L501.3620, L100.0100 #### [facility] [facility] [address] [place], [address] Platelet mean volume (Bld) [Entitic vol] 9.3 fL Normal 6.2-12.0 [facility] Comment on above: Performed By: #### L 3100.7000, L500.4050, L501.3620, L100.0100 #### [facility] [address] [place], [address] Platelets (Bld) [#/Vol] 310 10*3/uL Normal 150-450 [facility] Comment on above: Performed By: #### L 3100.7000, L500.4050, L501.3620, L100.0100 #### [facility] [address] [place], [address] RBC (Bld) [#/Vol] 4.93 10*6/uL Normal 4.2-5.4 [facility] Comment on above: Performed By: #### L 3100.7000, L500.4050, [id number], L100.0100 #### [facility] [address] [place], [address] RDW SD 47.3 fl High 35.1-43.9 [facility] Comment on above: Performed By: #### L 3100.7000, L500.4050, [id number], L100.0100 #### [facility] [address] [place], [address] WBC (Bld) [#/Vol] 9.5 10*3/uL Normal 4.4-11.0 [facility] Comment on above: Performed By: #### L 3100.7000, L500.4050, [id number], L100.0100 #### [facility] [address] [place], [address] CPK Total, Creatine Kinaseon 01-22-2024 CPK TOTAL 41 U/L Normal 26-192 [facility] Comment on above: Performed By: #### L 3100.7000, L500.4050, L501.3620, L100.0100 #### [facility] [address] [place], [address] Carbon dioxide measurementOr dered By: Natalie Rodriguez on 01-22-2024 CO2 [Moles/Vol] 24.0 mmol/L 21.0-32.0 [facility] Chloride measurementOrdered By: Natalie Rodriguez on 01-22-2024 Chloride [Moles/Vol] 105 mmol/L 98-107 [facility] Comprehensive Metabolic Prof ilon 01-22-2024 Albumin [Mass/Vol] 3.9 g/dL Normal 3.2-5.0 [facility] Comment on above: Performed By: #### L 3100.7000, L500.4050, [id number], L100.0100 #### [facility] [address] [place], [address] Albumin/Globulin [Mass ratio] 0.9 {ratio} Normal 0.9-2.4 [facility] Comment on above: Performed By: #### L 3100.7000, L500.4050, L501.3620, L100.0100 #### [facility] [address] [place], [address] ALK P 68 U/L Normal 45-117 [facility] Comment on above: Performed By: #### L 3100.7000, L500.4050, [id number], L100.0100 #### [facility] [address] [place], [address] ALT [Catalytic activity/Vol] 47 U/L Normal 13-56 [facility] Comment on above: Performed By: #### L 3100.7000, L500.4050, [id number], L100.0100 #### [facility] [address] [place], [address] AST [Catalytic activity/Vol] 21 U/L Normal 15-37 [facility] Comment on above: Performed By: #### L 3100.7000, L500.4050, [id number], L100.0100 #### [facility] [address] [place], [address] Bilirubin [Mass/Vol] 0.50 mg/dL Normal 0.20-1.00 [facility] Comment on above: Result Comment: For patients on eltrombopag therapy, use of Dimension [place] TBIL is not recommended. Performed By: #### L 3100.7000, L500.4050, L501.3620, L100.0100 #### [facility] [address] [place], [address] BUN/CRE 18.8 RATIO Normal 10-20 [facility] Comment on above: Performed By: #### L 3100.7000, L500.4050, [id number], L100.0100 #### [facility] [address] [place], [address] CA,Total 9.9 mg/dL Normal 8.5-10.1 [facility] Comment on above: Performed By: #### L 3100.7000, L500.4050, [id number], L100.0100 #### [facility] [address] [place], [address] Chloride [Moles/Vol] 105 mmol/L Normal 98-107 [facility] Comment on above: Performed By: #### L 3100.7000, L500.4050, [id number], L100.0100 #### [facility] [address] [place], [address] CO2 [Moles/Vol] 24.0 mmol/L Normal 21.0-32.0 [facility] Comment on above: Performed By: #### L 3100.7000, L500.4050, [id number], L100.0100 #### [facility] [address] [place], [address] Creatinine [Mass/Vol] 0.64 mg/dL Normal 0.55-1.02 [facility] Comment on above: Result Comment: The validity of the calculated GFR GFRAA in patients over 70 years has not been determined. Clinical correlation is essential. Performed By: #### L 3100.7000, L500.4050, L501.3620, L100.0100 #### [facility] [address] [place], [address] EST GFR - AA 113 mL/min Normal >60 [facility] Comment on above: Result Comment: Afri can Citizen Of [place] GFR Calc Performed By: #### L 3100.7000, L500.4050, L501.3620, L100.0100 #### [facility] [address] [place], [address] GAP 7 Normal 5-15 [facility] Comment on above: Performed By: #### L 3100.7000, L500.4050, [id number], L100.0100 #### [facility] [address] [place], [address] GFR/1.73 sq M.predicted among non-blacks MDRD (S/P/Bld) [Vol rate/Area] 93 mL/min/{1.73_m2} Normal >60 [facility] Comment on above: Result Comment: Non- GFR Calc Performed By: #### L 3100.7000, L500.4050, L501.3620, L100.0100 #### [facility] [address] [place], [address] Globulin (S) [Mass/Vol] 4.2 g/dL Normal 2.2-4.2 [facility] Comment on above: Performed By: #### L 3100.7000, L500.4050, L501.3620, L100.0100 #### [facility] [address] [place], [address] Glucose [Mass/Vol] 112 mg/dL High 74-106 [facility] Comment on above: Result Comment: Fast ing Glucose result from 100 to 125 mg/dL suggests IMPAIRED HOMEOSTASIS per A.D.A. criteria. Performed By: #### L 3100.7000, L500.4050, L501.3620, L100.0100 #### [facility] [address] [place], [address] Potassium [Moles/Vol] 3.6 mmol/L Normal 3.5-5.1 [facility] Comment on above: Performed By: #### L 3100.7000, L500.4050, L501.3620, L100.0100 #### [facility] [address] [place], [address] Sodium [Moles/Vol] 136 mmol/L Normal 136-145 [facility] Comment on above: Performed By: #### L 3100.7000, L500.4050, L501.3620, L100.0100 #### [facility] [address] [place], [address] T PROT 8.1 g/dL Normal 6.4-8.2 [facility] Comment on above: Performed By: #### L 3100.7000, L500.4050, L501.3620, L100.0100 #### [facility] [address] [place], [address] Urea nitrogen [Mass/Vol] 12 mg/dL Normal 7-18 [facility] Comment on above: Performed By: #### L 3100.7000, L500.4050, L501.3620, L100.0100 #### [facility] [address] [place], [address] Eosinophil percentageOrdered By: Natalie Rodriguez on 01-22-2024 Eosinophils/100 WBC (Bld) 0.7 % 0-5 [facility] Erythrocyte distribution wid th ratioOrdered By: Natalie Rodriguez on 01-22-2024 Erythrocyte distribution width (RBC) [Ratio] 14.2 % 11.6-14.6 [facility] Erythrocyte distribution wid th standard deviationOrdered By: Natalie Rodriguez on 01-22-2024 Erythrocyte distribution width (RBC) [Entitic vol] 47.3 fL High 35.1-43.9 [facility] Estimated glomerular filtrat ion rate (GFR) AmericanOrdered By: Natalie Rodriguez on 01-22-2024 Estimated GFR (MDRD) Amer 113 mL/min >60 [facility] Comment on above: GFR Calc Glomerular filtration rate ( GFR) estimationOrdered By: Natalie Rodriguez on 01-22-2024 Estimated GFR (MDRD) Non-Af Amer 93 mL/min >60 [facility] Comment on above: Non- GFR Calc Glucose measurementOrdered B y: Natalie Rodriguez on 01-22-2024 Glucose [Mass/Vol] 112 mg/dL High 74-106 [facility] Comment on above: Fasting Glucose resu lt from 100 to 125 mg/dL suggests IMPAIRED HOMEOSTASIS per A.D.A. criteria. Hematocrit Auto (Bld) [Volum e fraction]Ordered By: Natalie Rodriguez on 01-22-2024 Hematocrit (Bld) [Volume fraction] 45.7 % 37-47 [facility] Hemoglobin measurementOrdere d By: Natalie Rodriguez on 01-22-2024 Hemoglobin (Bld) [Mass/Vol] 15.5 g/dL High 12.0-15.0 [facility] Immature granulocytes/100 WB C Auto (Bld)Ordered By: Natalie Rodriguez on 01-22-2024 Immature granulocytes/100 WBC (Bld) 0.400 % 0.0-0.9 [facility] Comment on above: IG% - Immature Granu locytes (promyelocytes, myelocytes and metamyelocytes) > 1% indicates that a LEFT SHIFT is Present. Laboratory - Chemistry and C hemistry - challengeOrdered By: Natalie Rodriguez on 01-22-2024 AST [Catalytic activity/Vol] 21 U/L 15-37 [facility] Lymphocytes Auto (Unsp spec) [#/Vol]Ordered By: Natalie Rodriguez on 01-22-2024 Lymphocytes (Bld) [#/Vol] 1.91 10*3/uL 0.83-4.51 [facility] Lymphocytes/100 WBC Auto (Un sp spec)Ordered By: Natalie Rodriguez on 01-22-2024 Lymphocytes/100 WBC (Bld) 20.2 % 19-41 [facility] MCV (mean corpuscular volume ) determinationOrdered By: Natalie Rodriguez on 01-22-2024 MCV (RBC) [Entitic vol] 92.7 fL 81-99 [facility] Mean corpuscular hemoglobin (MCH) determinationOrdered By: Natalie Rodriguez on 01-22-2024 MCH (RBC) [Entitic mass] 31.4 pg 27.0-32.0 [facility] Mean corpuscular hemoglobin concentration (MCHC) determinationOrdered By: Natalie Rodriguez on 01-22-2024 MCHC (RBC) [Mass/Vol] 33.9 g/dL 32-36 [facility] Mean platelet volume determi nationOrdered By: Natalie Rodriguez on 01-22-2024 Platelet mean volume (Bld) [Entitic vol] 9.3 fL 6.2-12.0 [facility] Monocyte percentageOrdered B y: Natalie Rodriguez on 01-22-2024 Monocytes/100 WBC (Bld) 9.7 % 0-10 [facility] Neutrophil percentageOrdered By: Natalie Rodriguez on 01-22-2024 Neutrophils/100 WBC (Bld) 68.2 % 47-70 [facility] Nucleated red blood cell per centageOrdered By: Natalie Rodriguez on 01-22-2024 Nucleated RBC/100 WBC (Bld) [Ratio] 0 % 0-5 [facility] Platelet countOrdered By: Wilfrido Rodriguez on 01-22-2024 Platelets (Bld) [#/Vol] 310 10*3/uL 150-450 [facility] Potassium measurementOrdered By: Natalie Rodriguez on 01-22-2024 Potassium [Moles/Vol] 3.6 mmol/L 3.5-5.1 [facility] RBC Auto (Bld) [#/Vol]Ordere d By: Natalie Rodriguez on 01-22-2024 RBC (Bld) [#/Vol] 4.93 10*6/uL 4.2-5.4 [facility] Serum anion gap measurementO rdered By: Natalie Rodriguez on 01-22-2024 Anion gap [Moles/Vol] 7 mmol/L 5-15 [facility] Serum globulin measurementOr dered By: Natalie Rodriguez on 01-22-2024 Globulin (S) [Mass/Vol] 4.2 g/dL 2.2-4.2 [facility] Serum or plasma alanine myers otransferase (ALT) measurementOrdered By: Natalie Rodriguez on 01-22-2024 ALT [Catalytic activity/Vol] 47 U/L 13-56 [facility] Serum or plasma albumin nancy urement (mass/volume)Ordered By: Natalie Rodriguez on 01-22-2024 Albumin [Mass/Vol] 3.9 g/dL 3.2-5.0 [facility] Serum or plasma alkaline lindsey sphatase measurementOrdered By: Natalie Rodriguez on 01-22-2024 ALP [Catalytic activity/Vol] 68 U/L 45-117 [facility] Serum or plasma calcium nancy urement (mass/volume)Ordered By: Natalie Rodriguez on 01-22-2024 Calcium [Mass/Vol] 9.9 mg/dL 8.5-10.1 [facility] Serum or plasma creatinine m easurement (mass/volume)Ordered By: Natalie Rodriguez on 01-22-2024 Creatinine [Mass/Vol] 0.64 mg/dL 0.55-1.02 [facility] Comment on above: The validity of the calculated GFR & GFRAA in patients over 70 years has not been determined. Clinical correlation is essential. Serum or plasma urea nitroge n measurement (mass/volume)Ordered By: Natalie Rodriguez on 01-22-2024 Urea nitrogen [Mass/Vol] 12 mg/dL 7-18 [facility] Sodium levelOrdered By: Shawna Rodriguez on 01-22-2024 Sodium [Moles/Vol] 136 mmol/L 136-145 [facility] Total creatine kinase measur ementOrdered By: Natalie Rodriguez on 01-22-2024 CK [Catalytic activity/Vol] 41 U/L 26-192 [facility] Total proteinOrdered By: Layne Rodriguez on 01-22-2024 Protein [Mass/Vol] 8.1 g/dL 6.4-8.2 [facility] White blood cell (WBC) count Ordered By: Natalie Rodriguez on 01-22-2024 WBC (Bld) [#/Vol] 9.5 10*3/uL 4.4-11.0 [facility] Absolute lymphocyte countOrd ered By: Natalie Rodriguez on 05-16-2023 Lymphocytes Auto (Unsp spec) [#/Vol] 1.32 10*3/uL 0.83-4.51 [facility] Aldolase ser/plasOrdered By: Natalie Rodriguez on 05-16-2023 Aldolase [Catalytic activity/Vol] 2.8 mU/mL 3.3-10.3 [facility] Comment on above: Performed at: [address] Director: Harley Griffith PhD, Phone: [phone] Automated lymphocyte count a s percentage of total leukocytesOrdered By: Natalie Rodriguez on 05-16-2023 Lymphocytes/100 WBC Auto (Unsp spec) 22.0 % 19-41 [facility] Basophil percentageOrdered B y: Natalie Rodriguez on 05-16-2023 Basophils/100 WBC (Bld) 1.2 % 0-1 [facility] Bilirubin [Mass/Vol] 0.50 mg/dL 0.20-1.00 [facility] Comment on above: For patients on eltr ombopag therapy, use of Dimension [place] TBIL is not recommended. Chloride [Moles/Vol] 103 mmol/L 98-107 [facility] Eosinophils/100 WBC (Bld) 1.2 % 0-5 [facility] Glucose [Mass/Vol] 170 mg/dL 74-106 [facility] Comment on above: Fasting Glucose resu lt greater than or equal to 126 mg/dL suggests DIABETES MELLITUS per A.D.A. criteria. Hemoglobin (Bld) [Mass/Vol] 14.5 g/dL 12.0-15.0 [facility] Monocytes/100 WBC (Bld) 14.2 % 0-10 [facility] Neutrophils (Bld) [#/Vol] 3.7 10*3/uL 2.0-7.7 [facility] Neutrophils/100 WBC (Bld) 61.1 % 47-70 [facility] Potassium [Moles/Vol] 3.5 mmol/L 3.5-5.1 [facility] Protein [Mass/Vol] 9.0 g/dL 6.4-8.2 [facility] Sodium [Moles/Vol] 134 mmol/L 136-145 [facility] WBC (Bld) [#/Vol] 6.0 10*3/uL 4.4-11.0 [facility] Determination of erythrocyte mean corpuscular volume (MCV)Ordered By: Natalie Rodriguez on 05-16-2023 MCV (RBC) [Entitic vol] 90.3 fL 81-99 [facility] Erythrocyte distribution wid th ratioOrdered By: Natalie Rodriguez on 05-16-2023 Erythrocyte distribution width (RBC) [Ratio] 13.2 % 11.6-14.6 [facility] Erythrocyte distribution wid th standard deviationOrdered By: Natalie Rodriguez on 05-16-2023 Erythrocyte distribution width (RBC) [Entitic vol] 43.9 fL 35.1-43.9 [facility] Hematocrit Auto (Bld) [Volum e fraction]Ordered By: Natalie Rodriguez on 05-16-2023 Hematocrit (Bld) [Volume fraction] 42.9 % 37-47 [facility] Immature granulocytes/100 WB C Auto (Bld)Ordered By: Natalie Rodriguez on 05-16-2023 Immature granulocytes/100 WBC (Bld) 0.300 % 0.0-0.9 [facility] Comment on above: IG% - Immature Granu locytes (promyelocytes, myelocytes and metamyelocytes) > 1% indicates that a LEFT SHIFT is Present. Laboratory - Chemistry and C hemistry - challengeOrdered By: Natalie Rodriguez on 05-16-2023 Albumin/Globulin [Mass ratio] 0.6 {ratio} 0.9-2.4 [facility] ALP [Catalytic activity/Vol] 76 U/L 45-117 [facility] ALT [Catalytic activity/Vol] 28 U/L 13-56 [facility] CK [Catalytic activity/Vol] 44 U/L 26-192 [facility] CO2 [Moles/Vol] 24.0 mmol/L 21.0-32.0 [facility] Globulin (S) [Mass/Vol] 5.6 g/dL 2.2-4.2 [facility] Urea nitrogen/Creatinine [Mass ratio] 13.3 mg/mg 10-20 [facility] - Hematology and Cell countsOrdered By: Natalie Rodriguez on 05-16-2023 MCH (RBC) [Entitic mass] 30.5 pg 27.0-32.0 [facility] MCHC (RBC) [Mass/Vol] 33.8 g/dL 32-36 [facility] Nucleated RBC/100 WBC (Bld) [Ratio] 0 % 0-5 [facility] Platelet mean volume (Bld) [Entitic vol] 9.5 fL 6.2-12.0 [facility] Platelets (Bld) [#/Vol] 264 10*3/uL 150-450 [facility] No Panel InformationOrdered By: Natalie Rodriguez on 05-16-2023 Estimated GFR (MDRD) Amer 70 mL/min >60 [facility] Comment on above: GFR Calc Estimated GFR (MDRD) Non-Af Amer 57 mL/min >60 [facility] Comment on above: Non- GFR Calc RBC Auto (Bld) [#/Vol]Ordere d By: Natalie Rodriguez on 05-16-2023 RBC (Bld) [#/Vol] 4.75 10*6/uL 4.2-5.4 [facility] Serum or plasma calcium nancy urement (mass/volume)Ordered By: Natalie Rodriguez on 05-16-2023 Calcium [Mass/Vol] 8.9 mg/dL 8.5-10.1 [facility] Serum or plasma creatinine m easurement (mass/volume)Ordered By: Natalie Rodriguez on 05-16-2023 Creatinine [Mass/Vol] 0.98 mg/dL 0.55-1.02 [facility] Comment on above: The validity of the calculated GFR & GFRAA in patients over 70 years has not been determined. Clinical correlation is essential. Serum or plasma urea nitroge n measurement (mass/volume)Ordered By: Natalie Rodriguez on 05-16-2023 Urea nitrogen [Mass/Vol] 13 mg/dL 7-18 [facility] Thin prep Papanicolaou smear with manual screeningOrdered By: Natalie Rodriguez on 05-16-2023 Thin prep Papanicolaou smear with manual screening 3.4 g/dL 3.2-5.0 [facility] Thin prep Papanicolaou smear with manual screening 19 U/L 15-37 [facility] Thin prep Papanicolaou smear with manual screening 7 5-15 [facility] Absolute lymphocyte countOrd ered By: Natalie Rodriguez on 11-24-2022 Lymphocytes Auto (Unsp spec) [#/Vol] 1.73 10*3/uL 0.83-4.51 [facility] Aldolase ser/plasOrdered By: Natalie Rodriguez on 11-24-2022 Aldolase [Catalytic activity/Vol] 3.2 mU/mL 3.3-10.3 [facility] Comment on above: Performed at: [address] Director: Harley Griffith PhD, Phone: [phone] Basophil percentageOrdered B y: Natalie Rodriguez on 11-24-2022 Basophils/100 WBC (Bld) 1.3 % 0-1 [facility] Bilirubin [Mass/Vol] 0.30 mg/dL 0.20-1.00 [facility] Comment on above: For patients on eltr ombopag therapy, use of Dimension [place] TBIL is not recommended. Chloride [Moles/Vol] 107 mmol/L 98-107 [facility] Eosinophils/100 WBC (Bld) 1.0 % 0-5 [facility] Glucose [Mass/Vol] 135 mg/dL 74-106 [facility] Comment on above: Fasting Glucose resu lt greater than or equal to 126 mg/dL suggests DIABETES MELLITUS per A.D.A. criteria. Neutrophils (Bld) [#/Vol] 3.4 10*3/uL 2.0-7.7 [facility] Neutrophils/100 WBC (Bld) 55.0 % 47-70 [facility] Potassium [Moles/Vol] 3.8 mmol/L 3.5-5.1 [facility] Comment on above: Slight Hemolysis, Re sult may be falsely increased. Protein [Mass/Vol] 8.6 g/dL 6.4-8.2 [facility] Sodium [Moles/Vol] 138 mmol/L 136-145 [facility] WBC (Bld) [#/Vol] 6.2 10*3/uL 4.4-11.0 [facility] Blood erythrocytes count (nu mber/volume)Ordered By: Natalie Rodriguez on 11-24-2022 RBC (Bld) [#/Vol] 4.57 10*6/uL 4.2-5.4 [facility] Blood hemoglobin measurement (mass/volume)Ordered By: Natalie Rodriguez on 11-24-2022 Hemoglobin (Bld) [Mass/Vol] 14.4 g/dL 12.0-15.0 [facility] Blood lymphocytes/100 leukoc ytesOrdered By: Natalie Rodriguez on 11-24-2022 Lymphocytes/100 WBC (Bld) 28.1 % 19-41 [facility] Blood monocytes/100 leukocyt esOrdered By: Natalie Rodriguez on 11-24-2022 Monocytes/100 WBC (Bld) 14.3 % 0-10 [facility] Blood platelet mean volumeOr dered By: Natalie Rodriguez on 11-24-2022 Platelet mean volume (Bld) [Entitic vol] 9.8 fL 6.2-12.0 [facility] Determination of erythrocyte mean corpuscular volume (MCV)Ordered By: Natalie Rodriguez on 11-24-2022 MCV (RBC) [Entitic vol] 96.7 fL 81-99 [facility] Hematocrit Auto (Bld) [Volum e fraction]Ordered By: Natalie Rodriguez on 11-24-2022 Hematocrit (Bld) [Volume fraction] 44.2 % 37-47 [facility] - Chemistry and C hemistry - challengeOrdered By: Natalie Rodriguez on 11-24-2022 ALP [Catalytic activity/Vol] 79 U/L 45-117 [facility] ALT [Catalytic activity/Vol] 30 U/L 13-56 [facility] CK [Catalytic activity/Vol] 51 U/L 26-192 [facility] CO2 [Moles/Vol] 23.0 mmol/L 21.0-32.0 [facility] Globulin (S) [Mass/Vol] 5.0 g/dL 2.2-4.2 [facility] Urea nitrogen/Creatinine [Mass ratio] 18.4 mg/mg 10- [facility] - Hematology and Cell countsOrdered By: Natalie Rodriguez on 11-24-2022 Erythrocyte distribution width (RBC) [Entitic vol] 49.5 fL 35.1-43.9 [facility] Erythrocyte distribution width (RBC) [Ratio] 13.9 % 11.6-14.6 [facility] Immature granulocytes/100 WBC (Bld) 0.300 % 0.0-0.9 [facility] Comment on above: IG% - Immature Granu locytes (promyelocytes, myelocytes and metamyelocytes) > 1% indicates that a LEFT SHIFT is Present. MCH (RBC) [Entitic mass] 31.5 pg 27.0-32.0 [facility] Nucleated RBC/100 WBC (Bld) [Ratio] 0 % 0-5 [facility] MCHC Auto (RBC) [Mass/Vol]Or dered By: Natalie Rodriguez on 11-24-2022 MCHC (RBC) [Mass/Vol] 32.6 g/dL 32-36 [facility] No Panel InformationOrdered By: Natalie Rodriguez on 11-24-2022 Estimated GFR (MDRD) Amer 93 mL/min >60 [facility] Comment on above: GFR Calc Estimated GFR (MDRD) Non-Af Amer 77 mL/min >60 [facility] Comment on above: Non- GFR Calc Platelets bldOrdered By: Layne Rodriguez on 11-24-2022 Platelets (Bld) [#/Vol] 314 10*3/uL 150-450 [facility] Serum or plasma albumin nancy urement (mass/volume)Ordered By: Natalie Rodriguez on 11-24-2022 Albumin [Mass/Vol] 3.6 g/dL 3.2-5.0 [facility] Serum or plasma albumin/glob ulin mass ratioOrdered By: Natalie Rodriguez on 11-24-2022 Albumin/Globulin [Mass ratio] 0.7 {ratio} 0.9-2.4 [facility] Serum or plasma calcium nancy urement (mass/volume)Ordered By: Natalie Rodriguez on 11-24-2022 Calcium [Mass/Vol] 9.5 mg/dL 8.5-10.1 [facility] Serum or plasma creatinine m easurement (mass/volume)Ordered By: Natalie Rodriguez on 11-24-2022 Creatinine [Mass/Vol] 0.76 mg/dL 0.55-1.02 [facility] Comment on above: The validity of the calculated GFR & GFRAA in patients over 70 years has not been determined. Clinical correlation is essential. Serum or plasma urea nitroge n measurement (mass/volume)Ordered By: Natalie Rodriguez on 11-24-2022 Urea nitrogen [Mass/Vol] 14 mg/dL 7-18 [facility] Thin prep Papanicolaou smear with manual screeningOrdered By: Natalie Rodriguez on 11-24-2022 Thin prep Papanicolaou smear with manual screening 19 U/L 15-37 [facility] Comment on above: Slight Hemolysis, Re sult may be falsely increased. Thin prep Papanicolaou smear with manual screening 8 5-15 [facility] Absolute lymphocyte countOrd ered By: Natalie Rodriguez on 08-14-2022 Lymphocytes Auto (Unsp spec) [#/Vol] 2.21 10*3/uL 0.83-4.51 [facility] Aldolase ser/plasOrdered By: Natalie Rodriguez on 08-14-2022 Aldolase [Catalytic activity/Vol] 5.1 mU/mL 3.3-10.3 [facility] Comment on above: Performed at: [facility] [address] [id number] Director: Harley Griffith PhD, Phone: [phone] Basophil percentageOrdered B y: Natalie Rodriguez on 08-14-2022 Basophils/100 WBC (Bld) 0.9 % 0-1 [facility] Bilirubin [Mass/Vol] 0.40 mg/dL 0.20-1.00 [facility] Comment on above: For patients on eltr ombopag therapy, use of Dimension [place] TBIL is not recommended. Chloride [Moles/Vol] 105 mmol/L 98-107 [facility] Eosinophils/100 WBC (Bld) 0.8 % 0-5 [facility] Glucose [Mass/Vol] 101 mg/dL 74-106 [facility] Comment on above: Fasting Glucose resu lt from 100 to 125 mg/dL suggests IMPAIRED HOMEOSTASIS per A.D.A. criteria. Neutrophils (Bld) [#/Vol] 5.7 10*3/uL 2.0-7.7 [facility] Neutrophils/100 WBC (Bld) 63.4 % 47-70 [facility] Potassium [Moles/Vol] 4.1 mmol/L 3.5-5.1 [facility] Protein [Mass/Vol] 8.4 g/dL 6.4-8.2 [facility] Sodium [Moles/Vol] 136 mmol/L 136-145 [facility] WBC (Bld) [#/Vol] 9.0 10*3/uL 4.4-11.0 [facility] Blood erythrocytes count (nu mber/volume)Ordered By: Natalie Rodriguez on 08-14-2022 RBC (Bld) [#/Vol] 4.56 10*6/uL 4.2-5.4 [facility] Blood hemoglobin measurement (mass/volume)Ordered By: Natalie Rodriguez on 08-14-2022 Hemoglobin (Bld) [Mass/Vol] 14.7 g/dL 12.0-15.0 [facility] Blood lymphocytes/100 leukoc ytesOrdered By: Natalie Rodriguez on 08-14-2022 Lymphocytes/100 WBC (Bld) 24.5 % 19-41 [facility] Blood monocytes/100 leukocyt esOrdered By: Natalie Rodriguez on 08-14-2022 Monocytes/100 WBC (Bld) 9.8 % 0-10 [facility] Blood platelet mean volumeOr dered By: Natalie Rodriguez on 08-14-2022 Platelet mean volume (Bld) [Entitic vol] 9.1 fL 6.2-12.0 [facility] Determination of erythrocyte mean corpuscular volume (MCV)Ordered By: Natalie Rodriguez on 08-14-2022 MCV (RBC) [Entitic vol] 95.0 fL 81-99 [facility] Hematocrit Auto (Bld) [Volum e fraction]Ordered By: Natalie Rodriguez on 08-14-2022 Hematocrit (Bld) [Volume fraction] 43.3 % 37-47 [facility] Laboratory - Chemistry and C hemistry - challengeOrdered By: Natalieelizabeth Rodriguez on 08-14-2022 ALP [Catalytic activity/Vol] 93 U/L 45-117 [facility] ALT [Catalytic activity/Vol] 35 U/L 13-56 [facility] CK [Catalytic activity/Vol] 41 U/L 26-192 [facility] CO2 [Moles/Vol] 25.0 mmol/L 21.0-32.0 [facility] Globulin (S) [Mass/Vol] 4.7 g/dL 2.2-4.2 [facility] Urea nitrogen/Creatinine [Mass ratio] 14.2 mg/mg 10-20 [facility] Laboratory - Hematology and Cell countsOrdered By: Natalie Rodriguez on 08-14-2022 Erythrocyte distribution width (RBC) [Entitic vol] 46.9 fL 35.1-43.9 [facility] Erythrocyte distribution width (RBC) [Ratio] 13.6 % 11.6-14.6 [facility] Immature granulocytes/100 WBC (Bld) 0.600 % 0.0-0.9 [facility] Comment on above: IG% - Immature Granu locytes (promyelocytes, myelocytes and metamyelocytes) > 1% indicates that a LEFT SHIFT is Present. MCH (RBC) [Entitic mass] 32.2 pg 27.0-32.0 [facility] Nucleated RBC/100 WBC (Bld) [Ratio] 0 % 0-5 [facility] MCHC Auto (RBC) [Mass/Vol]Or dered By: Natalie Rodriguez on 08-14-2022 MCHC (RBC) [Mass/Vol] 33.9 g/dL 32-36 [facility] No Panel InformationOrdered By: Natalie Rodriguez on 08-14-2022 Estimated GFR (MDRD) Amer 91 mL/min >60 [facility] Comment on above: GFR Calc Estimated GFR (MDRD) Non-Af Amer 75 mL/min >60 [facility] Comment on above: Non- GFR Calc Platelets bldOrdered By: Layne Rodriguez on 08-14-2022 Platelets (Bld) [#/Vol] 324 10*3/uL 150-450 [facility] Serum or plasma albumin nancy urement (mass/volume)Ordered By: Natalie Rodriguez on 08-14-2022 Albumin [Mass/Vol] 3.7 g/dL 3.2-5.0 [facility] Serum or plasma albumin/glob ulin mass ratioOrdered By: Natalie Rodriguez on 08-14-2022 Albumin/Globulin [Mass ratio] 0.8 {ratio} 0.9-2.4 [facility] Serum or plasma calcium nancy urement (mass/volume)Ordered By: Natalie Rodriguez on 08-14-2022 Calcium [Mass/Vol] 10.0 mg/dL 8.5-10.1 [facility] Serum or plasma creatinine m easurement (mass/volume)Ordered By: Natalie Rodriguez on 08-14-2022 Creatinine [Mass/Vol] 0.78 mg/dL 0.55-1.02 [facility] Comment on above: The validity of the calculated GFR & GFRAA in patients over 70 years has not been determined. Clinical correlation is essential. Serum or plasma urea nitroge n measurement (mass/volume)Ordered By: Natalie Rodriguez on 08-14-2022 Urea nitrogen [Mass/Vol] 11 mg/dL 7-18 [facility] Thin prep Papanicolaou smear with manual screeningOrdered By: Natalie Rodriguez on 08-14-2022 Thin prep Papanicolaou smear with manual screening 21 U/L 15-37 [facility] Thin prep Papanicolaou smear with manual screening 6 5-15 [facility] Laboratory - Chemistry and C hemistry - challengeOrdered By: Dr. Mane on 05-29-2022 Free T4 [Mass/Vol] 1.33 ng/dL 0.76-1.46 [facility] No Panel InformationOrdered By: Dr. Mane on 05-29-2022 Thyroid Stimulating Hormone (TSH) 3.70 uIU/mL 0.358-3.74 [facility] Absolute lymphocyte countOrd ered By: Dr. Babb on 04-12-2022 Lymphocytes Auto (Unsp spec) [#/Vol] 1.55 10*3/uL 0.83-4.51 [facility] Basophil percentageOrdered B y: Dr. Babb on 04-12-2022 Basophils/100 WBC (Bld) 0.8 % 0-1 [facility] Bilirubin [Mass/Vol] 0.40 mg/dL 0.20-1.00 [facility] Comment on above: For patients on eltr ombopag therapy, use of Dimension [place] TBIL is not recommended. Chloride [Moles/Vol] 107 mmol/L 98-107 [facility] Eosinophils/100 WBC (Bld) 0.4 % 0-5 [facility] Glucose [Mass/Vol] 103 mg/dL 74-106 [facility] Comment on above: Fasting Glucose resu lt from 100 to 125 mg/dL suggests IMPAIRED HOMEOSTASIS per A.D.A. criteria. Neutrophils (Bld) [#/Vol] 6.7 10*3/uL 2.0-7.7 [facility] Neutrophils/100 WBC (Bld) 71.0 % 47-70 [facility] Potassium [Moles/Vol] 3.9 mmol/L 3.5-5.1 [facility] Protein [Mass/Vol] 8.5 g/dL 6.4-8.2 [facility] Sodium [Moles/Vol] 136 mmol/L 136-145 [facility] WBC (Bld) [#/Vol] 9.5 10*3/uL 4.4-11.0 [facility] Blood erythrocytes count (nu mber/volume)Ordered By: Dr. Babb on 04-12-2022 RBC (Bld) [#/Vol] 4.43 10*6/uL 4.2-5.4 [facility] Blood hemoglobin measurement (mass/volume)Ordered By: Dr. Babb on 04-12-2022 Hemoglobin (Bld) [Mass/Vol] 14.5 g/dL 12.0-15.0 [facility] Blood lymphocytes/100 leukoc ytesOrdered By: Dr. Babb on 04-12-2022 Lymphocytes/100 WBC (Bld) 16.4 % 19-41 [facility] Blood monocytes/100 leukocyt esOrdered By: Dr. Babb on 04-12-2022 Monocytes/100 WBC (Bld) 10.4 % 0-10 [facility] Blood platelet mean volumeOr dered By: Dr. Babb on 04-12-2022 Platelet mean volume (Bld) [Entitic vol] 8.9 fL 6.2-12.0 [facility] Determination of erythrocyte mean corpuscular volume (MCV)Ordered By: Dr. Babb on 04-12-2022 MCV (RBC) [Entitic vol] 97.5 fL 81-99 [facility] Hematocrit Auto (Bld) [Volum e fraction]Ordered By: Dr. Babb on 04-12-2022 Hematocrit (Bld) [Volume fraction] 43.2 % 37-47 [facility] Laboratory - Chemistry and C hemistry - challengeOrdered By: Dr. Babb on 04-12-2022 ALP [Catalytic activity/Vol] 77 U/L 45-117 [facility] ALT [Catalytic activity/Vol] 30 U/L 13-56 [facility] CO2 [Moles/Vol] 22.0 mmol/L 21.0-32.0 [facility] Globulin (S) [Mass/Vol] 4.8 g/dL 2.2-4.2 [facility] Urea nitrogen/Creatinine [Mass ratio] 28.4 mg/mg 10-20 [facility] Laboratory - Hematology and Cell countsOrdered By: Dr. Babb on 04-12-2022 Erythrocyte distribution width (RBC) [Entitic vol] 56.2 fL 35.1-43.9 [facility] Erythrocyte distribution width (RBC) [Ratio] 15.7 % 11.6-14.6 [facility] Immature granulocytes/100 WBC (Bld) 1.000 % 0.0-0.9 [facility] Comment on above: IG% - Immature Granu locytes (promyelocytes, myelocytes and metamyelocytes) > 1% indicates that a LEFT SHIFT is Present. MCH (RBC) [Entitic mass] 32.7 pg 27.0-32.0 [facility] Nucleated RBC/100 WBC (Bld) [Ratio] 0 % 0-5 [facility] MCHC Auto (RBC) [Mass/Vol]Or dered By: Dr. Babb on 04-12-2022 MCHC (RBC) [Mass/Vol] 33.6 g/dL 32-36 [facility] No Panel InformationOrdered By: Dr. Babb on 04-12-2022 Estimated GFR (MDRD) Amer 91 mL/min >60 [facility] Comment on above: GFR Calc Estimated GFR (MDRD) Non-Af Amer 75 mL/min >60 [facility] Comment on above: Non- GFR Calc Hepatitis C Antibody Non-Reactive Nonreactive [facility] Comment on above: Non Reactive: < 0.8 Equivocal: >/= 0.8 to < 1.0 Reactive: >/= 1.0The CDC recommends that a reactive/equivocal HCV antibody result be followed up by the HCV Nucleic Acid Amplificationtest (129262) Thyroid Stimulating Hormone (TSH) 14.60 uIU/mL 0.358-3.74 [facility] Vitamin D 25-Hydroxy 51.2 ng/mL [facility] Comment on above: Vitamin D 25(OH) Sta tus Range Deficiency <20 ng/mL (50nmol/L) Insufficiency 20 - 30 ng/mL (50 - 75 nmol/L) Sufficiency 30 - 100 ng/mL (75 - 250 nmol/L) Toxicity >100 ng/mL (>250 nmol/L) Platelets bldOrdered By: Dr. Babb on 04-12-2022 Platelets (Bld) [#/Vol] 340 10*3/uL 150-450 [facility] Serum or plasma albumin nancy urement (mass/volume)Ordered By: Dr. Babb on 04-12-2022 Albumin [Mass/Vol] 3.7 g/dL 3.2-5.0 [facility] Serum or plasma albumin/glob ulin mass ratioOrdered By: Dr. Babb on 04-12-2022 Albumin/Globulin [Mass ratio] 0.8 {ratio} 0.9-2.4 [facility] Serum or plasma calcium nancy urement (mass/volume)Ordered By: Dr. Babb on 04-12-2022 Calcium [Mass/Vol] 9.7 mg/dL 8.5-10.1 [facility] Serum or plasma creatinine m easurement (mass/volume)Ordered By: Dr. Babb on 04-12-2022 Creatinine [Mass/Vol] 0.77 mg/dL 0.55-1.02 [facility] Comment on above: The validity of the calculated GFR & GFRAA in patients over 70 years has not been determined. Clinical correlation is essential. Serum or plasma urea nitroge n measurement (mass/volume)Ordered By: Dr. Babb on 04-12-2022 Urea nitrogen [Mass/Vol] 22 mg/dL 7-18 [facility] Thin prep Papanicolaou smear with manual screeningOrdered By: Dr. Babb on 04-12-2022 Thin prep Papanicolaou smear with manual screening 15 U/L 15-37 [facility] Thin prep Papanicolaou smear with manual screening 7 5-15 [facility] Basophil percentageOrdered B y: Brennan Dillard on 02-20-2022 Bilirubin [Mass/Vol] 0.30 mg/dL 0.20-1.00 [facility] Comment on above: For patients on eltr ombopag therapy, use of Dimension [place] TBIL is not recommended. Chloride [Moles/Vol] 105 mmol/L 98-107 [facility] Cholesterol [Mass/Vol] 138 mg/dL <200 [facility] Comment on above: <200 mg/dL Desirable 200-240 mg/dL Borderline >240 mg/dL High Risk Glucose [Mass/Vol] 93 mg/dL 74-106 [facility] Potassium [Moles/Vol] 4.0 mmol/L 3.5-5.1 [facility] Comment on above: Slight Hemolysis, Re sult may be falsely increased. Protein [Mass/Vol] 7.4 g/dL 6.4-8.2 [facility] Sodium [Moles/Vol] 141 mmol/L 136-145 [facility] Triglyceride [Mass/Vol] 118 mg/dL <199 [facility] Comment on above: The drugs N-Acetylcy steine and Metamizole may falsely depress this assay.Serum Triglycerides Reference Interval Normal <150 mg/dL Borderline high 150 - 199 mg/dL High 200 - 499 mg/dL Very High > or = 500 mg/dL WBC (Bld) [#/Vol] 7.0 10*3/uL 4.4-11.0 [facility] Blood erythrocytes count (nu mber/volume)Ordered By: Brennan Dillard on 02-20-2022 RBC (Bld) [#/Vol] 4.59 10*6/uL 4.2-5.4 [facility] Blood hemoglobin measurement (mass/volume)Ordered By: Brennan Dillard on 02-20-2022 Hemoglobin (Bld) [Mass/Vol] 14.4 g/dL 12.0-15.0 [facility] Blood platelet mean volumeOr dered By: Brennan Dillard on 02-20-2022 Platelet mean volume (Bld) [Entitic vol] 8.9 fL 6.2-12.0 [facility] Determination of erythrocyte mean corpuscular volume (MCV)Ordered By: Brennan Dillard on 02-20-2022 MCV (RBC) [Entitic vol] 96.5 fL 81-99 [facility] Hematocrit Auto (Bld) [Volum e fraction]Ordered By: Brennan Dillard on 02-20-2022 Hematocrit (Bld) [Volume fraction] 44.3 % 37-47 [facility] Laboratory - Chemistry and C hemistry - challengeOrdered By: Brennan Dillard on 02-20-2022 ALP [Catalytic activity/Vol] 98 U/L 45-117 [facility] ALT [Catalytic activity/Vol] 32 U/L 13-56 [facility] CK [Catalytic activity/Vol] 40 U/L 26-192 [facility] CO2 [Moles/Vol] 25.0 mmol/L 21.0-32.0 [facility] Globulin (S) [Mass/Vol] 4.1 g/dL 2.2-4.2 [facility] Urea nitrogen/Creatinine [Mass ratio] 27.6 mg/mg 10-20 [facility] Laboratory - Hematology and Cell countsOrdered By: Brennan Dillard on 02-20-2022 Erythrocyte distribution width (RBC) [Entitic vol] 56.3 fL 35.1-43.9 [facility] Erythrocyte distribution width (RBC) [Ratio] 15.8 % 11.6-14.6 [facility] MCH (RBC) [Entitic mass] 31.4 pg 27.0-32.0 [facility] MCHC Auto (RBC) [Mass/Vol]Or dered By: Brennan Dillard on 02-20-2022 MCHC (RBC) [Mass/Vol] 32.5 g/dL 32-36 [facility] No Panel InformationOrdered By: Brennan Dillard on 02-20-2022 Estimated GFR (MDRD) Amer 137 mL/min >60 [facility] Comment on above: GFR Calc Estimated GFR (MDRD) Non-Af Amer 113 mL/min >60 [facility] Comment on above: Non- GFR Calc Platelets bldOrdered By: Hilary Dillard on 02-20-2022 Platelets (Bld) [#/Vol] 297 10*3/uL 150-450 [facility] Serum or plasma albumin nancy urement (mass/volume)Ordered By: Brennan Dillard on 02-20-2022 Albumin [Mass/Vol] 3.3 g/dL 3.2-5.0 [facility] Serum or plasma albumin/glob ulin mass ratioOrdered By: Brennan Dillard on 02-20-2022 Albumin/Globulin [Mass ratio] 0.8 {ratio} 0.9-2.4 [facility] Serum or plasma calcium nancy urement (mass/volume)Ordered By: Brennan Dillard on 02-20-2022 Calcium [Mass/Vol] 9.1 mg/dL 8.5-10.1 [facility] Serum or plasma cholesterol in HDL measurement (mass/volume)Ordered By: Brennan Dillard on 02-20-2022 Cholesterol in HDL [Mass/Vol] 54 mg/dL >40 [facility] Comment on above: The drugs N-Acetylcy steine and Metamizole may falsely depress this assay. Reference Range HDL <40 mg/dL Low HDL Cholesterol HDL >or= 60 mg/dL High HDL Cholesterol Serum or plasma cholesterol in VLDL measurement (mass/volume)Ordered By: Brennan Dillard on 02-20-2022 Cholesterol in VLDL [Mass/Vol] 24 mg/dL 5-40 [facility] Serum or plasma creatinine m easurement (mass/volume)Ordered By: Brennan Dillard on 02-20-2022 Creatinine [Mass/Vol] 0.54 mg/dL 0.55-1.02 [facility] Comment on above: The validity of the calculated GFR & GFRAA in patients over 70 years has not been determined. Clinical correlation is essential. Serum or plasma low density lipoprotein (LDL) cholesterol measurement (mass/volume)Ordered By: Brennan Dillard on 02-20-2022 Cholesterol in LDL [Mass/Vol] 60 mg/dL 0-130 [facility] Serum or plasma urea nitroge n measurement (mass/volume)Ordered By: Brennan Dillard on 02-20-2022 Urea nitrogen [Mass/Vol] 15 mg/dL 7-18 [facility] Thin prep Papanicolaou smear with manual screeningOrdered By: Brennan Dillard on 02-20-2022 Thin prep Papanicolaou smear with manual screening 17 U/L 15-37 [facility] Comment on above: Slight Hemolysis, Re sult may be falsely increased. Thin prep Papanicolaou smear with manual screening 11 5-15 [facility] Progress Noteon 02-04-2022 Progress Note See Scanned Progress Notes Normal [facility] Absolute lymphocyte countOrd ered By: Dr. Babb on 01-25-2022 Lymphocytes Auto (Unsp spec) [#/Vol] 1.36 10*3/uL 0.83-4.51 [facility] Basophil percentageOrdered B y: Dr. Babb on 01-25-2022 Basophils/100 WBC (Bld) 1.4 % 0-1 [facility] Chloride [Moles/Vol] 108 mmol/L 98-107 [facility] Eosinophils/100 WBC (Bld) 2.0 % 0-5 [facility] Glucose [Mass/Vol] 92 mg/dL 74-106 [facility] Neutrophils (Bld) [#/Vol] 4.1 10*3/uL 2.0-7.7 [facility] Neutrophils/100 WBC (Bld) 63.9 % 47-70 [facility] Potassium [Moles/Vol] 3.7 mmol/L 3.5-5.1 [facility] Sodium [Moles/Vol] 140 mmol/L 136-145 [facility] WBC (Bld) [#/Vol] 6.4 10*3/uL 4.4-11.0 [facility] Blood erythrocytes count (nu mber/volume)Ordered By: Dr. Babb on 01-25-2022 RBC (Bld) [#/Vol] 4.12 10*6/uL 4.2-5.4 [facility] Blood hemoglobin measurement (mass/volume)Ordered By: Dr. Babb on 01-25-2022 Hemoglobin (Bld) [Mass/Vol] 13.2 g/dL 12.0-15.0 [facility] Blood lymphocytes/100 leukoc ytesOrdered By: Dr. Babb on 01-25-2022 Lymphocytes/100 WBC (Bld) 21.2 % 19-41 [facility] Blood monocytes/100 leukocyt esOrdered By: Dr. Babb on 01-25-2022 Monocytes/100 WBC (Bld) 10.9 % 0-10 [facility] Blood platelet mean volumeOr dered By: Dr. Babb on 01-25-2022 Platelet mean volume (Bld) [Entitic vol] 8.7 fL 6.2-12.0 [facility] Determination of erythrocyte mean corpuscular volume (MCV)Ordered By: Dr. Babb on 01-25-2022 MCV (RBC) [Entitic vol] 95.1 fL 81-99 [facility] Hematocrit Auto (Bld) [Volum e fraction]Ordered By: Dr. Babb on 01-25-2022 Hematocrit (Bld) [Volume fraction] 39.2 % 37-47 [facility] Laboratory - Chemistry and C hemistry - challengeOrdered By: Dr. Babb on 01-25-2022 CO2 [Moles/Vol] 26.0 mmol/L 21.0-32.0 [facility] Urea nitrogen/Creatinine [Mass ratio] 23.2 mg/mg 10-20 [facility] Laboratory - Hematology and Cell countsOrdered By: Dr. Babb on 01-25-2022 Erythrocyte distribution width (RBC) [Entitic vol] 58.6 fL 35.1-43.9 [facility] Erythrocyte distribution width (RBC) [Ratio] 16.9 % 11.6-14.6 [facility] Immature granulocytes/100 WBC (Bld) 0.600 % 0.0-0.9 [facility] Comment on above: IG% - Immature Granu locytes (promyelocytes, myelocytes and metamyelocytes) > 1% indicates that a LEFT SHIFT is Present. MCH (RBC) [Entitic mass] 32.0 pg 27.0-32.0 [facility] Nucleated RBC/100 WBC (Bld) [Ratio] 0 % 0-5 [facility] MCHC Auto (RBC) [Mass/Vol]Or dered By: Dr. Babb on 01-25-2022 MCHC (RBC) [Mass/Vol] 33.7 g/dL 32-36 [facility] No Panel InformationOrdered By: Dr. Babb on 01-25-2022 Estimated Creatinine Clearance Calc 29.54 ml/min [facility] Estimated GFR (MDRD) Amer 145 mL/min >60 [facility] Comment on above: GFR Calc Estimated GFR (MDRD) Non-Af Amer 120 mL/min >60 [facility] Comment on above: Non- GFR Calc Platelets bldOrdered By: Dr. Babb on 01-25-2022 Platelets (Bld) [#/Vol] 255 10*3/uL 150-450 [facility] Serum or plasma calcium nancy urement (mass/volume)Ordered By: Dr. Babb on 01-25-2022 Calcium [Mass/Vol] 8.7 mg/dL 8.5-10.1 [facility] Serum or plasma creatinine m easurement (mass/volume)Ordered By: Dr. Babb on 01-25-2022 Creatinine [Mass/Vol] 0.52 mg/dL 0.55-1.02 [facility] Comment on above: The validity of the calculated GFR & GFRAA in patients over 70 years has not been determined. Clinical correlation is essential. Serum or plasma urea nitroge n measurement (mass/volume)Ordered By: Dr. Babb on 01-25-2022 Urea nitrogen [Mass/Vol] 12 mg/dL 7-18 [facility] Thin prep Papanicolaou smear with manual screeningOrdered By: Dr. Babb on 01-25-2022 Thin prep Papanicolaou smear with manual screening 6 5-15 [facility] Basophil percentageon 2021 Chloride [Moles/Vol] 109 mmol/L 98-107 [facility] Work Phone: Glucose [Mass/Vol] 100 mg/dL 74-106 [facility] Work Phone: Comment on above: Fasting Glucose resu lt from 100 to 125 mg/dL suggests IMPAIRED HOMEOSTASIS per A.D.A. criteria. Potassium [Moles/Vol] 3.7 mmol/L 3.5-5.1 [facility] Work Phone: Sodium [Moles/Vol] 139 mmol/L 136-145 [facility] Work Phone: Laboratory - Chemistry and C hemistry - challengeon 01-19-2022 CO2 [Moles/Vol] 23.0 mmol/L 21.0-32.0 [facility] Work Phone: Urea nitrogen/Creatinine [Mass ratio] 22.9 mg/mg 10-20 [facility] Work Phone: No Panel Informationon 01-19 Estimated Creatinine Clearance Calc 29.54 ml/min [facility] Work Phone: Estimated GFR (MDRD) Amer 130 mL/min >60 [facility] Work Phone: Comment on above: GFR Calc Estimated GFR (MDRD) Non-Af Amer 108 mL/min >60 [facility] Work Phone: Comment on above: Non- GFR Calc Serum or plasma calcium nancy urement (mass/volume)on 01-19-2022 Calcium [Mass/Vol] 9.0 mg/dL 8.5-10.1 [facility] Work Phone: Serum or plasma creatinine m easurement (mass/volume)on 01-19-2022 Creatinine [Mass/Vol] 0.57 mg/dL 0.55-1.02 [facility] Work Phone: Comment on above: The validity of the calculated GFR & GFRAA in patients over 70 years has not been determined. Clinical correlation is essential. Serum or plasma urea nitroge n measurement (mass/volume)on 01-19-2022 Urea nitrogen [Mass/Vol] 13 mg/dL 7-18 [facility] Work Phone: Thin prep Papanicolaou smear with manual screeningon 01-19-2022 Thin prep Papanicolaou smear with manual screening 7 5-15 [facility] Work Phone: Absolute lymphocyte counton 01-18-2022 Lymphocytes Auto (Unsp spec) [#/Vol] 1.64 10*3/uL 0.83-4.51 [facility] Work Phone: Basophil percentageon 2021 Basophils/100 WBC (Bld) 1.0 % 0-1 [facility] Work Phone: Eosinophils/100 WBC (Bld) 1.9 % 0-5 [facility] Work Phone: Neutrophils (Bld) [#/Vol] 5.4 10*3/uL 2.0-7.7 [facility] Work Phone: Neutrophils/100 WBC (Bld) 66.6 % 47-70 [facility] Work Phone: WBC (Bld) [#/Vol] 8.0 10*3/uL 4.4-11.0 [facility] Work Phone: Blood erythrocytes count (nu mber/volume)on 01-18-2022 RBC (Bld) [#/Vol] 4.27 10*6/uL 4.2-5.4 [facility] Work Phone: Blood hemoglobin measurement (mass/volume)on 01-18-2022 Hemoglobin (Bld) [Mass/Vol] 13.0 g/dL 12.0-15.0 [facility] Work Phone: Blood lymphocytes/100 leukoc yteson 12-14-2022 Lymphocytes/100 WBC (Bld) 20.4 % 19-41 [facility] Work Phone: Blood monocytes/100 leukocyt eson 01-18-2022 Monocytes/100 WBC (Bld) 9.5 % 0-10 [facility] Work Phone: Blood platelet mean volumeon 01-18-2022 Platelet mean volume (Bld) [Entitic vol] 9.1 fL 6.2-12.0 [facility] Work Phone: Determination of erythrocyte mean corpuscular volume (MCV)on 01-18-2022 MCV (RBC) [Entitic vol] 95.3 fL 81-99 [facility] Work Phone: Hematocrit Auto (Bld) [Volum e fraction]on 01-18-2022 Hematocrit (Bld) [Volume fraction] 40.7 % 37-47 [facility] Work Phone: Laboratory - Hematology and Cell countson 01-18-2022 Erythrocyte distribution width (RBC) [Entitic vol] 58.4 fL 35.1-43.9 [facility] Work Phone: Erythrocyte distribution width (RBC) [Ratio] 16.6 % 11.6-14.6 [facility] Work Phone: Immature granulocytes/100 WBC (Bld) 0.600 % 0.0-0.9 [facility] Work Phone: Comment on above: IG% - Immature Granu locytes (promyelocytes, myelocytes and metamyelocytes) > 1% indicates that a LEFT SHIFT is Present. MCH (RBC) [Entitic mass] 30.4 pg 27.0-32.0 [facility] Work Phone: Nucleated RBC/100 WBC (Bld) [Ratio] 0 % 0-5 [facility] Work Phone: MCHC Auto (RBC) [Mass/Vol]on 01-18-2022 MCHC (RBC) [Mass/Vol] 31.9 g/dL 32-36 [facility] Phone: Platelets bldon 01-18-2022 Platelets (Bld) [#/Vol] 299 10*3/uL 150-450 [facility] Work Phone: COVID-19 virus antigen assay Ordered By: Dr. Babb on 01-07-2022 SARS-CoV-2 (COVID-19) Ag IA.rapid Ql (Resp) [facility] Absolute lymphocyte countOrd ered By: Dr. Mooney on 01-03-2022 Lymphocytes Auto (Unsp spec) [#/Vol] 1.11 10*3/uL 0.83-4.51 [facility] Basophil percentageOrdered B y: Dr. Mooney on 01-03-2022 Basophils/100 WBC (Bld) 0.9 % 0-1 [facility] Chloride [Moles/Vol] 106 mmol/L 98-107 [facility] Eosinophils/100 WBC (Bld) 2.8 % 0-5 [facility] Glucose [Mass/Vol] 104 mg/dL 74-106 [facility] Comment on above: Fasting Glucose resu lt from 100 to 125 mg/dL suggests IMPAIRED HOMEOSTASIS per A.D.A. criteria. Neutrophils (Bld) [#/Vol] 4.6 10*3/uL 2.0-7.7 [facility] Neutrophils/100 WBC (Bld) 69.0 % 47-70 [facility] Potassium [Moles/Vol] 4.0 mmol/L 3.5-5.1 [facility] Sodium [Moles/Vol] 137 mmol/L 136-145 [facility] WBC (Bld) [#/Vol] 6.7 10*3/uL 4.4-11.0 [facility] Blood erythrocytes count (nu mber/volume)Ordered By: Dr. Mooney on 01-03-2022 RBC (Bld) [#/Vol] 4.44 10*6/uL 4.2-5.4 [facility] Blood hemoglobin measurement (mass/volume)Ordered By: Dr. Mooney on 01-03-2022 Hemoglobin (Bld) [Mass/Vol] 13.7 g/dL 12.0-15.0 [facility] Blood lymphocytes/100 leukoc ytesOrdered By: Dr. Mooney on 01-03-2022 Lymphocytes/100 WBC (Bld) 16.5 % 19-41 [facility] Blood monocytes/100 leukocyt esOrdered By: Dr. Mooney on 01-03-2022 Monocytes/100 WBC (Bld) 10.4 % 0-10 [facility] Blood platelet mean volumeOr dered By: Dr. Mooney on 01-03-2022 Platelet mean volume (Bld) [Entitic vol] 9.4 fL 6.2-12.0 [facility] COVID-19 virus antigen assay Ordered By: Dr. Schneider on 01-03-2022 SARS-CoV-2 (COVID-19) Ag IA.rapid Ql (Resp) [facility] Determination of erythrocyte mean corpuscular volume (MCV)Ordered By: Dr. Mooney on 01-03-2022 MCV (RBC) [Entitic vol] 96.4 fL 81-99 [facility] Hematocrit Auto (Bld) [Volum e fraction]Ordered By: Dr. Mooney on 01-03-2022 Hematocrit (Bld) [Volume fraction] 42.8 % 37-47 [facility] Laboratory - Chemistry and C hemistry - challengeOrdered By: Dr. Mooney on 01-03-2022 CO2 [Moles/Vol] 25.0 mmol/L 21.0-32.0 [facility] Urea nitrogen/Creatinine [Mass ratio] 14.7 mg/mg 10-20 [facility] Laboratory - Hematology and Cell countsOrdered By: Dr. Mooney on 01-03-2022 Erythrocyte distribution width (RBC) [Entitic vol] 62.4 fL 35.1-43.9 [facility] Erythrocyte distribution width (RBC) [Ratio] 17.6 % 11.6-14.6 [facility] Immature granulocytes/100 WBC (Bld) 0.400 % 0.0-0.9 [facility] Comment on above: IG% - Immature Granu locytes (promyelocytes, myelocytes and metamyelocytes) > 1% indicates that a LEFT SHIFT is Present. MCH (RBC) [Entitic mass] 30.9 pg 27.0-32.0 [facility] Nucleated RBC/100 WBC (Bld) [Ratio] 0 % 0-5 [facility] MCHC Auto (RBC) [Mass/Vol]Or dered By: Dr. Mooney on 01-03-2022 MCHC (RBC) [Mass/Vol] 32.0 g/dL 32-36 [facility] No Panel InformationOrdered By: Dr. Mooney on 01-03-2022 Estimated Creatinine Clearance Calc 29.54 ml/min [facility] Estimated GFR (MDRD) Amer 159 mL/min >60 [facility] Comment on above: GFR Calc Estimated GFR (MDRD) Non-Af Amer 132 mL/min >60 [facility] Comment on above: Non- GFR Calc Platelets bldOrdered By: Dr. Mooney on 01-03-2022 Platelets (Bld) [#/Vol] 280 10*3/uL 150-450 [facility] Serum or plasma calcium nancy urement (mass/volume)Ordered By: Dr. Mooney on 01-03-2022 Calcium [Mass/Vol] 8.9 mg/dL 8.5-10.1 [facility] Serum or plasma creatinine m easurement (mass/volume)Ordered By: Dr. Mooney on 01-03-2022 Creatinine [Mass/Vol] 0.48 mg/dL 0.55-1.02 [facility] Comment on above: The validity of the calculated GFR & GFRAA in patients over 70 years has not been determined. Clinical correlation is essential. Serum or plasma urea nitroge n measurement (mass/volume)Ordered By: Dr. Mooney on 01-03-2022 Urea nitrogen [Mass/Vol] 7 mg/dL 7-18 [facility] Thin prep Papanicolaou smear with manual screeningOrdered By: Dr. Mooney on 01-03-2022 Thin prep Papanicolaou smear with manual screening 6 5-15 [facility] Absolute lymphocyte counton 01-02-2022 Lymphocytes Auto (Unsp spec) [#/Vol] 1.13 10*3/uL 0.83-4.51 [facility] Work Phone: Basophil percentageon 2021 Basophils/100 WBC (Bld) 0.6 % 0-1 [facility] Work Phone: Chloride [Moles/Vol] 102 mmol/L 98-107 [facility] Work Phone: Eosinophils/100 WBC (Bld) 1.1 % 0-5 [facility] Work Phone: Glucose [Mass/Vol] 153 mg/dL 74-106 [facility] Work Phone: Comment on above: Fasting Glucose resu lt greater than or equal to 126 mg/dL suggests DIABETES MELLITUS per A.D.A. criteria. Neutrophils (Bld) [#/Vol] 4.5 10*3/uL 2.0-7.7 [facility] Work Phone: Neutrophils/100 WBC (Bld) 70.9 % 47-70 [facility] Work Phone: Potassium [Moles/Vol] 3.0 mmol/L 3.5-5.1 [facility] Work Phone: Sodium [Moles/Vol] 134 mmol/L 136-145 [facility] Work Phone: WBC (Bld) [#/Vol] 6.4 10*3/uL 4.4-11.0 [facility] Work Phone: Basophil percentageOrdered B y: Dr. Mooney on 01-02-2022 Cholesterol [Mass/Vol] 143 mg/dL <200 [facility] Comment on above: <200 mg/dL Desirable 200-240 mg/dL Borderline >240 mg/dL High Risk Triglyceride [Mass/Vol] 67 mg/dL <199 [facility] Comment on above: The drugs N-Acetylcy steine and Metamizole may falsely depress this assay.Serum Triglycerides Reference Interval Normal <150 mg/dL Borderline high 150 - 199 mg/dL High 200 - 499 mg/dL Very High > or = 500 mg/dL Blood erythrocytes count (nu mber/volume)on 01-02-2022 RBC (Bld) [#/Vol] 3.95 10*6/uL 4.2-5.4 [facility] Work Phone: Blood hemoglobin measurement (mass/volume)on 01-02-2022 Hemoglobin (Bld) [Mass/Vol] 12.1 g/dL 12.0-15.0 [facility] Work Phone: Blood lymphocytes/100 leukoc yteson 01-02-2022 Lymphocytes/100 WBC (Bld) 17.8 % 19-41 [facility] Work Phone: Blood monocytes/100 leukocyt eson 01-02-2022 Monocytes/100 WBC (Bld) 8.8 % 0-10 [facility] Work Phone: Blood platelet mean volumeon 01-02-2022 Platelet mean volume (Bld) [Entitic vol] 9.1 fL 6.2-12.0 [facility] Work Phone: Determination of erythrocyte mean corpuscular volume (MCV)on 01-02-2022 MCV (RBC) [Entitic vol] 93.7 fL 81-99 [facility] Work Phone: Glucose Glucometer (BldC) [M ass/Vol]Ordered By: Dr. Mooney on 01-02-2022 Glucose [Mass/Vol] 140 mg/dL 74-106 [facility] Comment on above: MANAGEMENT OF PATIEN T CARE PER NURSING PROTOCOL Glucose Glucometer (BldC) [M ass/Vol]on 01-02-2022 Glucose [Mass/Vol] 154 mg/dL 74-106 [facility] Work Phone: Comment on above: MANAGEMENT OF PATIEN T CARE PER NURSING PROTOCOL Hematocrit Auto (Bld) [Volum e fraction]on 01-02-2022 Hematocrit (Bld) [Volume fraction] 37.0 % 37-47 [facility] Work Phone: INR in Blood by Coagulation assayOrdered By: Dr. Trinh on 01-02-2022 INR Coag (Bld) [Relative time] 1.1 {INR} [facility] Laboratory - Chemistry and C hemistry - challengeon 01-02-2022 CO2 [Moles/Vol] 24.0 mmol/L 21.0-32.0 [facility] Work Phone: Urea nitrogen/Creatinine [Mass ratio] 21.6 mg/mg 10-20 [facility] Work Phone: [phone] Laboratory - CoagulationOrde red By: Dr. Trinh on 01-02-2022 aPTT Coag (Bld) [Time] 25.3 s 24.1-36.2 [facility] PT Coag (PPP) [Time] 14.3 s 11.7-14.9 [facility] Laboratory - Hematology and Cell countson 01-02-2022 Erythrocyte distribution width (RBC) [Entitic vol] 59.2 fL 35.1-43.9 [facility] Work Phone: [phone] Erythrocyte distribution width (RBC) [Ratio] 17.1 % 11.6-14.6 [facility] Work Phone: [phone] Immature granulocytes/100 WBC (Bld) 0.800 % 0.0-0.9 [facility] Work Phone: [phone] Comment on above: IG% - Immature Granu locytes (promyelocytes, myelocytes and metamyelocytes) > 1% indicates that a LEFT SHIFT is Present. MCH (RBC) [Entitic mass] 30.6 pg 27.0-32.0 [facility] Work Phone: [phone] Nucleated RBC/100 WBC (Bld) [Ratio] 0 % 0-5 [facility] Work Phone: [phone] MCHC Auto (RBC) [Mass/Vol]on 01-02-2022 MCHC (RBC) [Mass/Vol] 32.7 g/dL 32-36 [facility] Work Phone: No Panel Informationon 01-02 Estimated Creatinine Clearance Calc 29.54 ml/min [facility] Work Phone: [phone] Estimated GFR (MDRD) Amer 121 mL/min >60 [facility] Work Phone: [phone] Comment on above: GFR Calc Estimated GFR (MDRD) Non-Af Amer 100 mL/min >60 [facility] Work Phone: [phone] Comment on above: Non- GFR Calc No Panel InformationOrdered By: Dr. Trinh on 01-02-2022 Troponin I High Sensitivity 23 pg/mL 3.0-54.0 [facility] Comment on above: Please Note: New Jacqueline t Units and Gender Specific Reference Ranges. For more information see Policy Stat Procedure [place] High Sensitivity Troponin (TNIH) and attachments. Platelets bldon 01-02-2022 Platelets (Bld) [#/Vol] 251 10*3/uL 150-450 [facility] Work Phone: Serum or plasma calcium nancy urement (mass/volume)on 01-02-2022 Calcium [Mass/Vol] 8.2 mg/dL 8.5-10.1 [facility] Work Phone: Serum or plasma cholesterol in HDL measurement (mass/volume)Ordered By: Dr. Mooney on 01-02-2022 Cholesterol in HDL [Mass/Vol] 47 mg/dL >40 [facility] Comment on above: The drugs N-Acetylcy steine and Metamizole may falsely depress this assay. Reference Range HDL <40 mg/dL Low HDL Cholesterol HDL >or= 60 mg/dL High HDL Cholesterol Serum or plasma cholesterol in VLDL measurement (mass/volume)Ordered By: Dr. Mooney on 01-02-2022 Cholesterol in VLDL [Mass/Vol] 13 mg/dL 5-40 [facility] Serum or plasma creatinine m easurement (mass/volume)on 01-02-2022 Creatinine [Mass/Vol] 0.60 mg/dL 0.55-1.02 [facility] Work Phone: Comment on above: The validity of the calculated GFR & GFRAA in patients over 70 years has not been determined. Clinical correlation is essential. Serum or plasma low density lipoprotein (LDL) cholesterol measurement (mass/volume)Ordered By: Dr. Mooney on 01-02-2022 Cholesterol in LDL [Mass/Vol] 83 mg/dL 0-130 [facility] Serum or plasma urea nitroge n measurement (mass/volume)on 01-02-2022 Urea nitrogen [Mass/Vol] 13 mg/dL 7-18 [facility] Work Phone: Thin prep Papanicolaou smear with manual screeningon 01-02-2022 Thin prep Papanicolaou smear with manual screening 8 5-15 [facility] Work Phone: Whole blood hemoglobin A1c/t otal hemoglobin ratio (mass fraction)Ordered By: Dr. Mooney on 01-02-2022 HbA1c (Bld) [Mass fraction] 5.2 % 3.8-5.6 [facility] Comment on above: Normal < 5.7 % Predi abetic 5.7 - 6.4 % Diabetic >or= 6.5 % Please note range changes. Absolute lymphocyte counton 10-21-2021 Lymphocytes Auto (Unsp spec) [#/Vol] 1.54 10*3/uL 0.83-4.51 [facility] Work Phone: Basophil percentageon 2021 Basophils/100 WBC (Bld) 1.0 % 0-1 [facility] Work Phone: Bilirubin [Mass/Vol] 0.40 mg/dL 0.20-1.00 [facility] Work Phone: Comment on above: For patients on eltr ombopag therapy, use of Dimension [place] TBIL is not recommended. Chloride [Moles/Vol] 107 mmol/L 98-107 [facility] Work Phone: Eosinophils/100 WBC (Bld) 1.2 % 0-5 [facility] Work Phone: Glucose [Mass/Vol] 101 mg/dL 74-106 [facility] Work Phone: Comment on above: Fasting Glucose resu lt from 100 to 125 mg/dL suggests IMPAIRED HOMEOSTASIS per A.D.A. criteria. Neutrophils (Bld) [#/Vol] 3.2 10*3/uL 2.0-7.7 [facility] Work Phone: Neutrophils/100 WBC (Bld) 55.8 % 47-70 [facility] Work Phone: Potassium [Moles/Vol] 3.6 mmol/L 3.5-5.1 [facility] Work Phone: Protein [Mass/Vol] 7.8 g/dL 6.4-8.2 [facility] Work Phone: [phone] Sodium [Moles/Vol] 141 mmol/L 136-145 [facility] Work Phone: [phone] WBC (Bld) [#/Vol] 5.8 10*3/uL 4.4-11.0 [facility] Work Phone: Blood erythrocytes count (nu mber/volume)on 10-21-2021 RBC (Bld) [#/Vol] 4.70 10*6/uL 4.2-5.4 [facility] Work Phone: [phone] Blood hemoglobin measurement (mass/volume)on 10-21-2021 Hemoglobin (Bld) [Mass/Vol] 13.4 g/dL 12.0-15.0 [facility] Work Phone: Blood lymphocytes/100 leukoc yteson 10-21-2021 Lymphocytes/100 WBC (Bld) 26.5 % 19-41 [facility] Work Phone: [phone] Blood monocytes/100 leukocyt eson 10-21-2021 Monocytes/100 WBC (Bld) 15.0 % 0-10 [facility] Work Phone: Blood platelet mean volumeon 10-21-2021 Platelet mean volume (Bld) [Entitic vol] 9.4 fL 6.2-12.0 [facility] Work Phone: Determination of erythrocyte mean corpuscular volume (MCV)on 10-21-2021 MCV (RBC) [Entitic vol] 88.1 fL 81-99 [facility] Work Phone: Hematocrit Auto (Bld) [Volum e fraction]on 10-21-2021 Hematocrit (Bld) [Volume fraction] 41.4 % 37-47 [facility] Work Phone: [phone] Laboratory - Chemistry and C hemistry - challengeon 10-21-2021 ALP [Catalytic activity/Vol] 57 U/L 45-117 [facility] Work Phone: [phone] ALT [Catalytic activity/Vol] 23 U/L 13-56 [facility] Work Phone: [phone] CK [Catalytic activity/Vol] 73 U/L 26-192 [facility] Work Phone: [phone] CO2 [Moles/Vol] 25.0 mmol/L 21.0-32.0 [facility] Work Phone: [phone] Globulin (S) [Mass/Vol] 4.1 g/dL 2.2-4.2 [facility] Work Phone: [phone] Urea nitrogen/Creatinine [Mass ratio] 18.5 mg/mg 10-20 [facility] Work Phone: [phone] Laboratory - Hematology and Cell countson 10-21-2021 Erythrocyte distribution width (RBC) [Entitic vol] 53.2 fL 35.1-43.9 [facility] Work Phone: [phone] Erythrocyte distribution width (RBC) [Ratio] 17.1 % 11.6-14.6 [facility] Work Phone: [phone] Immature granulocytes/100 WBC (Bld) 0.500 % 0.0-0.9 [facility] Work Phone: [phone] Comment on above: IG% - Immature Granu locytes (promyelocytes, myelocytes and metamyelocytes) > 1% indicates that a LEFT SHIFT is Present. MCH (RBC) [Entitic mass] 28.5 pg 27.0-32.0 [facility] Work Phone: [phone] Nucleated RBC/100 WBC (Bld) [Ratio] 0 % 0-5 [facility] Work Phone: [phone] MCHC Auto (RBC) [Mass/Vol]on 10-21-2021 MCHC (RBC) [Mass/Vol] 32.4 g/dL 32-36 [facility] Work Phone: [phone] Panel Informationon 10-21 Estimated GFR (MDRD) Amer 112 mL/min >60 [facility] Work Phone: [phone] Comment on above: GFR Calc Estimated GFR (MDRD) Non-Af Amer 92 mL/min >60 [facility] Work Phone: Comment on above: Non- GFR Calc Platelets bldon 10-21-2021 Platelets (Bld) [#/Vol] 304 10*3/uL 150-450 [facility] Work Phone: Serum or plasma albumin nancy urement (mass/volume)on 10-21-2021 Albumin [Mass/Vol] 3.7 g/dL 3.2-5.0 [facility] Work Phone: Serum or plasma albumin/glob ulin mass ratioon 10-21-2021 Albumin/Globulin [Mass ratio] 0.9 {ratio} 0.9-2.4 [facility] Work Phone: [phone] Serum or plasma calcium nancy urement (mass/volume)on 10-21-2021 Calcium [Mass/Vol] 9.5 mg/dL 8.5-10.1 [facility] Work Phone: [phone] Serum or plasma creatinine m easurement (mass/volume)on 10-21-2021 Creatinine [Mass/Vol] 0.65 mg/dL 0.55-1.02 [facility] Work Phone: Comment on above: The validity of the calculated GFR & GFRAA in patients over 70 years has not been determined. Clinical correlation is essential. Serum or plasma urea nitroge n measurement (mass/volume)on 10-21-2021 Urea nitrogen [Mass/Vol] 12 mg/dL 7-18 [facility] Work Phone: [phone] Thin prep Papanicolaou smear with manual screeningon 10-21-2021 Thin prep Papanicolaou smear with manual screening 17 U/L 15-37 [facility] Work Phone: [phone] Thin prep Papanicolaou smear with manual screening 9 5-15 [facility] Work Phone: [phone] Absolute lymphocyte counton 06-24-2021 Lymphocytes Auto (Unsp spec) [#/Vol] 2.05 10*3/uL 0.83-4.51 [facility] Work Phone: Basophil percentageon 2021 Basophils/100 WBC (Bld) 0.9 % 0-1 [facility] Work Phone: Bilirubin [Mass/Vol] 0.50 mg/dL 0.20-1.00 [facility] Work Phone: Comment on above: For patients on eltr ombopag therapy, use of Dimension [place] TBIL is not recommended. Chloride [Moles/Vol] 106 mmol/L 98-107 [facility] Work Phone: Eosinophils/100 WBC (Bld) 1.6 % 0-5 [facility] Work Phone: Glucose [Mass/Vol] 96 mg/dL 74-106 [facility] Work Phone: Neutrophils (Bld) [#/Vol] 3.4 10*3/uL 2.0-7.7 [facility] Work Phone: Neutrophils/100 WBC (Bld) 53.2 % 47-70 [facility] Work Phone: Potassium [Moles/Vol] 3.8 mmol/L 3.5-5.1 [facility] Work Phone: Protein [Mass/Vol] 7.5 g/dL 6.4-8.2 [facility] Work Phone: Sodium [Moles/Vol] 138 mmol/L 136-145 [facility] Work Phone: WBC (Bld) [#/Vol] 6.3 10*3/uL 4.4-11.0 [facility] Work Phone: Blood erythrocytes count (nu mber/volume)on 06-24-2021 RBC (Bld) [#/Vol] 4.57 10*6/uL 4.2-5.4 [facility] Work Phone: Blood hemoglobin measurement (mass/volume)on 06-24-2021 Hemoglobin (Bld) [Mass/Vol] 13.2 g/dL 12.0-15.0 [facility] Work Phone: Blood lymphocytes/100 leukoc yteson 06-24-2021 Lymphocytes/100 WBC (Bld) 32.4 % 19-41 [facility] Work Phone: Blood monocytes/100 leukocyt eson 06-24-2021 Monocytes/100 WBC (Bld) 11.4 % 0-10 [facility] Work Phone: Blood platelet mean volumeon 06-24-2021 Platelet mean volume (Bld) [Entitic vol] 9.2 fL 6.2-12.0 [facility] Work Phone: [phone] Determination of erythrocyte mean corpuscular volume (MCV)on 06-24-2021 MCV (RBC) [Entitic vol] 88.8 fL 81-99 [facility] Work Phone: Hematocrit Auto (Bld) [Volum e fraction]on 06-24-2021 Hematocrit (Bld) [Volume fraction] 40.6 % 37-47 [facility] Work Phone: Laboratory - Chemistry and C hemistry - challengeon 06-24-2021 ALP [Catalytic activity/Vol] 77 U/L 45-117 [facility] Work Phone: ALT [Catalytic activity/Vol] 27 U/L 13-56 [facility] Work Phone: CK [Catalytic activity/Vol] 37 U/L 26-192 [facility] Work Phone: CO2 [Moles/Vol] 24.0 mmol/L 21.0-32.0 [facility] Work Phone: Globulin (S) [Mass/Vol] 3.7 g/dL 2.2-4.2 [facility] Work Phone: Urea nitrogen/Creatinine [Mass ratio] 19.2 mg/mg 10-20 [facility] Work Phone: Laboratory - Hematology and Cell countson 06-24-2021 Erythrocyte distribution width (RBC) [Entitic vol] 50.4 fL 35.1-43.9 [facility] Work Phone: [phone] Erythrocyte distribution width (RBC) [Ratio] 15.5 % 11.6-14.6 [facility] Work Phone: [phone] Immature granulocytes/100 WBC (Bld) 0.500 % 0.0-0.9 [facility] Work Phone: [phone] Comment on above: IG% - Immature Granu locytes (promyelocytes, myelocytes and metamyelocytes) > 1% indicates that a LEFT SHIFT is Present. MCH (RBC) [Entitic mass] 28.9 pg 27.0-32.0 [facility] Work Phone: [phone] Nucleated RBC/100 WBC (Bld) [Ratio] 0 % 0-5 [facility] Work Phone: [phone] MCHC Auto (RBC) [Mass/Vol]on 06-24-2021 MCHC (RBC) [Mass/Vol] 32.5 g/dL 32-36 [facility] Work Phone: [phone] No Panel Informationon 06-24 Estimated GFR (MDRD) Amer 106 mL/min >60 [facility] Work Phone: [phone] Comment on above: GFR Calc Estimated GFR (MDRD) Non-Af Amer 88 mL/min >60 [facility] Work Phone: [phone] Comment on above: Non- GFR Calc Platelets bldon 06-24-2021 Platelets (Bld) [#/Vol] 352 10*3/uL 150-450 [facility] Work Phone: [phone] Serum or plasma albumin nancy urement (mass/volume)on 06-24-2021 Albumin [Mass/Vol] 3.8 g/dL 3.2-5.0 [facility] Work Phone: [phone] Serum or plasma albumin/glob ulin mass ratioon 06-24-2021 Albumin/Globulin [Mass ratio] 1.0 {ratio} 0.9-2.4 [facility] Work Phone: [phone] Serum or plasma calcium nancy urement (mass/volume)on 06-24-2021 Calcium [Mass/Vol] 9.3 mg/dL 8.5-10.1 [facility] Work Phone: Serum or plasma creatinine m easurement (mass/volume)on 06-24-2021 Creatinine [Mass/Vol] 0.68 mg/dL 0.55-1.02 [facility] Work Phone: Comment on above: The validity of the calculated GFR & GFRAA in patients over 70 years has not been determined. Clinical correlation is essential. Serum or plasma urea nitroge n measurement (mass/volume)on 06-24-2021 Urea nitrogen [Mass/Vol] 13 mg/dL 7-18 [facility] Work Phone: Thin prep Papanicolaou smear with manual screeningon 06-24-2021 Thin prep Papanicolaou smear with manual screening 17 U/L 15-37 [facility] Work Phone: Thin prep Papanicolaou smear with manual screening 8 5-15 [facility] Work Phone: Absolute lymphocyte counton 04-11-2021 Lymphocytes Auto (Unsp spec) [#/Vol] 1.88 10*3/uL 0.83-4.51 [facility] Work Phone: Basophil percentageon 2021 Basophils/100 WBC (Bld) 0.9 % 0-1 [facility] Work Phone: Bilirubin [Mass/Vol] 0.50 mg/dL 0.20-1.00 [facility] Work Phone: [phone] Comment on above: For patients on eltr ombopag therapy, use of Dimension [place] TBIL is not recommended. Chloride [Moles/Vol] 106 mmol/L 98-107 [facility] Work Phone: Cholesterol [Mass/Vol] 166 mg/dL <200 [facility] Work Phone: Comment on above: <200 mg/dL Desirable 200-240 mg/dL Borderline >240 mg/dL High Risk Eosinophils/100 WBC (Bld) 1.4 % 0-5 [facility] Work Phone: Glucose [Mass/Vol] 99 mg/dL 74-106 [facility] Work Phone: Neutrophils (Bld) [#/Vol] 3.7 10*3/uL 2.0-7.7 [facility] Work Phone: Neutrophils/100 WBC (Bld) 57.9 % 47-70 [facility] Work Phone: [phone] Potassium [Moles/Vol] 3.4 mmol/L 3.5-5.1 [facility] Work Phone: Protein [Mass/Vol] 8.1 g/dL 6.4-8.2 [facility] Work Phone: [phone] Sodium [Moles/Vol] 138 mmol/L 136-145 [facility] Work Phone: [phone] Triglyceride [Mass/Vol] 119 mg/dL [facility] Work Phone: Comment on above: The drugs N-Acetylcy steine and Metamizole may falsely depress this assay.Serum Triglycerides Reference Interval Normal <150 mg/dL Borderline high 150 - 199 mg/dL High 200 - 499 mg/dL Very High > or = 500 mg/dL WBC (Bld) [#/Vol] 6.5 10*3/uL 4.4-11.0 [facility] Work Phone: Blood erythrocytes count (nu mber/volume)on 04-11-2021 RBC (Bld) [#/Vol] 4.42 10*6/uL 4.2-5.4 [facility] Work Phone: Blood hemoglobin measurement (mass/volume)on 04-11-2021 Hemoglobin (Bld) [Mass/Vol] 13.2 g/dL 12.0-15.0 [facility] Work Phone: Blood lymphocytes/100 leukoc yteson 04-11-2021 Lymphocytes/100 WBC (Bld) 29.1 % 19-41 [facility] Work Phone: Blood monocytes/100 leukocyt eson 04-11-2021 Monocytes/100 WBC (Bld) 10.4 % 0-10 [facility] Work Phone: Blood platelet mean volumeon 04-11-2021 Platelet mean volume (Bld) [Entitic vol] 9.5 fL 6.2-12.0 [facility] Work Phone: Determination of erythrocyte mean corpuscular volume (MCV)on 04-11-2021 MCV (RBC) [Entitic vol] 89.6 fL 81-99 [facility] Work Phone: Erythrocyte sedimentation ra odilia 04-11-2021 ESR (Bld) [Velocity] 23 mm/h 0-30 [facility]: Hematocrit Auto (Bld) [Volum e fraction]on 04-11-2021 Hematocrit (Bld) [Volume fraction] 39.6 % 37-47 [facility] Work Phone: Laboratory - Chemistry and C hemistry - challengeon 04-11-2021 ALP [Catalytic activity/Vol] 73 U/L 45-117 [facility] Work Phone: ALT [Catalytic activity/Vol] 25 U/L 13-56 [facility] Work Phone: CK [Catalytic activity/Vol] 36 U/L 26-192 [facility] Work Phone: CO2 [Moles/Vol] 26.0 mmol/L 21.0-32.0 [facility] Work Phone: Globulin (S) [Mass/Vol] 4.4 g/dL 2.2-4.2 [facility] Work Phone: Urea nitrogen/Creatinine [Mass ratio] 21.1 mg/mg 10-20 [facility] Work Phone: Laboratory - Hematology and Cell countson 04-11-2021 Erythrocyte distribution width (RBC) [Entitic vol] 51.7 fL 35.1-43.9 [facility] Work Phone: Erythrocyte distribution width (RBC) [Ratio] 15.9 % 11.6-14.6 [facility] Work Phone: Immature granulocytes/100 WBC (Bld) 0.300 % 0.0-0.9 [facility] Work Phone: Comment on above: IG% - Immature Granu locytes (promyelocytes, myelocytes and metamyelocytes) > 1% indicates that a LEFT SHIFT is Present. MCH (RBC) [Entitic mass] 29.9 pg 27.0-32.0 [facility] Work Phone: [phone] Nucleated RBC/100 WBC (Bld) [Ratio] 0 % 0-5 [facility] Work Phone: [phone] MCHC Auto (RBC) [Mass/Vol]on 04-11-2021 MCHC (RBC) [Mass/Vol] 33.3 g/dL 32-36 [facility] Work Phone: No Panel Informationon 04-11 Estimated GFR (MDRD) Amer 109 mL/min >60 [facility] Work Phone: Comment on above: GFR Calc Estimated GFR (MDRD) Non-Af Amer 90 mL/min >60 [facility] Work Phone: Comment on above: Non- GFR Calc Platelets bldon 04-11-2021 Platelets (Bld) [#/Vol] 328 10*3/uL 150-450 [facility] Work Phone: [phone] Serum or plasma C reactive p rotein measurement (mass/volume)on 04-11-2021 CRP [Mass/Vol] mg/L 0.0-3.0 [facility] Work Phone: [phone] Comment on above: C-Reactive Protein ( CRP) provides useful information for thediagnosis, therapy and monitoring of inflammatory processesand associated diseases. For the evaluation of Relative Riskfor Cardiovascular Disease, a High Sensitivity CRP (HSCRP)should be ordered. Serum or plasma albumin nancy urement (mass/volume)on 04-11-2021 Albumin [Mass/Vol] 3.7 g/dL 3.2-5.0 [facility] Work Phone: [phone] Serum or plasma albumin/glob ulin mass ratioon 04-11-2021 Albumin/Globulin [Mass ratio] 0.8 {ratio} 0.9-2.4 [facility] Work Phone: [phone] Serum or plasma calcium nancy urement (mass/volume)on 04-11-2021 Calcium [Mass/Vol] 9.5 mg/dL 8.5-10.1 [facility] Work Phone: [phone] Serum or plasma cholesterol in HDL measurement (mass/volume)on 04-11-2021 Cholesterol in HDL [Mass/Vol] 49 mg/dL [facility] Work Phone: Comment on above: The drugs N-Acetylcy steine and Metamizole may falsely depress this assay. Reference Range HDL <40 mg/dL Low HDL Cholesterol HDL >or= 60 mg/dL High HDL Cholesterol Serum or plasma cholesterol in VLDL measurement (mass/volume)on 04-11-2021 Cholesterol in VLDL [Mass/Vol] 24 mg/dL 5-40 [facility] Work Phone: [phone] Serum or plasma creatinine m easurement (mass/volume)on 04-11-2021 Creatinine [Mass/Vol] 0.66 mg/dL 0.55-1.02 [facility] Work Phone: Comment on above: The validity of the calculated GFR & GFRAA in patients over 70 years has not been determined. Clinical correlation is essential. Serum or plasma low density lipoprotein (LDL) cholesterol measurement (mass/volume)on 04-11-2021 Cholesterol in LDL [Mass/Vol] 93 mg/dL 0-130 [facility] Work Phone: [phone] Serum or plasma urea nitroge n measurement (mass/volume)on 04-11-2021 Urea nitrogen [Mass/Vol] 14 mg/dL 7-18 [facility] Work Phone: [phone] Thin prep Papanicolaou smear with manual screeningon 04-11-2021 Thin prep Papanicolaou smear with manual screening 18 U/L 15-37 [facility] Work Phone: [phone] Thin prep Papanicolaou smear with manual screening 6 5-15 [facility] Work Phone: Basophil percentageon 2021 Chloride [Moles/Vol] 106 mmol/L 98-107 [facility] Work Phone: Glucose [Mass/Vol] 127 mg/dL 74-106 [facility] Work Phone: Comment on above: Fasting Glucose resu lt greater than or equal to 126 mg/dL suggests DIABETES MELLITUS per A.D.A. criteria. Potassium [Moles/Vol] 3.6 mmol/L 3.5-5.1 [facility] Work Phone: Sodium [Moles/Vol] 138 mmol/L 136-145 [facility] Work Phone: Laboratory - Chemistry and C hemistry - challengeon 03-08-2021 CO2 [Moles/Vol] 26.0 mmol/L 21.0-32.0 [facility] Work Phone: Urea nitrogen/Creatinine [Mass ratio] 19.1 mg/mg 10-20 [facility] Work Phone: No Panel Informationon 03-08 Estimated GFR (MDRD) Amer 106 mL/min >60 [facility] Work Phone: Comment on above: GFR Calc Estimated GFR (MDRD) Non-Af Amer 87 mL/min >60 [facility] Work Phone: Comment on above: Non- GFR Calc Serum or plasma calcium nancy urement (mass/volume)on 03-08-2021 Calcium [Mass/Vol] 9.9 mg/dL 8.5-10.1 [facility] Work Phone: Serum or plasma creatinine m easurement (mass/volume)on 03-08-2021 Creatinine [Mass/Vol] 0.68 mg/dL 0.55-1.02 [facility] Work Phone: Comment on above: The validity of the calculated GFR & GFRAA in patients over 70 years has not been determined. Clinical correlation is essential. Serum or plasma urea nitroge n measurement (mass/volume)on 03-08-2021 Urea nitrogen [Mass/Vol] 13 mg/dL 7-18 [facility] Work Phone: Thin prep Papanicolaou smear with manual screeningon 03-08-2021 Thin prep Papanicolaou smear with manual screening 6 5-15 [facility] Work Phone: Lab Report: Comprehensive Pr tabolic Profilon 10-11-2016 Alanine aminotransferase (ALT) 37 U/L Invalid Interpretation Code 12-78 [facility] [employer] Work Phone: Albumin 3.5 g/dL Invalid Interpretation Code 3.4-5.0 [facility] [employer] Work Phone: Albumin/Globulin Ratio 0.8 {ratio} Low 0.9-2.4 [facility] [employer] Work Phone: Alkaline phosphatase (ALP) 47 U/L Invalid Interpretation Code 45-117 [facility] [employer] Work Phone: Anion gap 10 mmol/L Invalid Interpretation Code 5-15 [facility] [employer] Work Phone: Aspartate aminotransferase (AST) 26 U/L Invalid Interpretation Code 15-37 [facility] [employer] Work Phone: Bilirubin (total) 0.50 mg/dL Invalid Interpretation Code 0.20-1.00 [facility] [employer] Work Phone: BUN/Creatinine Ratio 23.0 RATIO High 10-20 [facility] [employer] Work Phone: Calcium 9.3 mg/dL Invalid Interpretation Code 8.5-10.1 [facility] [employer] Work Phone: Chloride 102 mmol/L Invalid Interpretation Code 98-107 [facility] [employer] Work Phone: CO2 26.0 mmol/L Invalid Interpretation Code 21.0-32.0 [facility] [employer] Work Phone: Creatinine 0.61 mg/dL Invalid Interpretation Code 0.55-1.02 [facility] [employer] Work Phone: eGFR (non-black) 100 mL/min/{1.73_m2} Invalid Interpretation Code >60 [facility] [employer] Work Phone: eGFR (non-black) 121 mL/min/{1.73_m2} Invalid Interpretation Code >60 [facility] [employer] Work Phone: Globulin 4.3 g/dL High 2.3-3.5 [facility] [employer] Work Phone: [phone] Glucose 87 mg/dL Invalid Interpretation Code 70-110 [facility] [employer] Work Phone: Potassium 3.7 mmol/L Invalid Interpretation Code 3.5-5.1 [facility] [employer] Work Phone: Protein 7.8 g/dL Invalid Interpretation Code 6.4-8.2 [facility] [employer] Work Phone: [phone] Sodium 138 mmol/L Invalid Interpretation Code 136-145 [facility] [employer] Work Phone: Urea nitrogen 14 mg/dL Invalid Interpretation Code 7-18 [facility] [employer] Work Phone: Lab Report: Thyroid Stim Hor shakira (TSH)on 10-11-2016 Thyroid stimulating hormone (TSH) 4.50 u[iU]/mL High 0.358-3.74 [facility] [employer] Work Phone: Lab Report: Vitamin D,25 Hyd roxyon 10-11-2016 vitamin D 25-hydroxy, serum 62.1 ng/mL Invalid Interpretation Code [facility] [employer] Work Phone: Office Visit: [facility]oon Documentation of current medications (procedure) Done Invalid Interpretation Code [facility] [employer] Work Phone: Fall risk assessment No Invalid Interpretation Code [facility] [employer] Work Phone: Tobacco smoking status NHIS Never Invalid Interpretation Code [facility] [employer] Work Phone: Tobacco use CPHS Never smoker Invalid Interpretation Code [facility] [employer] Work Phone: Office Visit: [facility] Breast Mammogram screening Abnormal Left Invalid Interpretation Code [facility] [employer] Work Phone: Lab Report: PTH,INTACTon Parathyrin.intact mass conc 74 pg/mL High 14-72 [facility] [employer] Work Phone: Lab Report: Basic Metabolic Profile (BMP)on 08-24-2015 Anion gap molar conc 8 mmol/L 5-15 [facility] [employer] Work Phone: Calcium mass conc 9.2 mg/dL 8.5-10.1 [facility] [employer] Work Phone: Chloride molar conc 106 mmol/L 98-107 [facility] Work Phone: CO2 ppres (BldV) 26.0 mmol/L 21.0-32.0 [facility] Work Phone: Creatinine mass conc 0.68 mg/dL 0.55-1.20 [facility] [employer] Work Phone: EST GFR - AA 108 mL/min >60 [facility] [employer] Work Phone: GFR/1.73 sq M predicted among non-blacks MDRD vol rate/area (S/P/Bld) 90 mL/min/{1.73_m2} >60 [facility] [employer] Work Phone: Glucose mass conc 90 mg/dL 70-110 [facility] [facility] Work Phone: Potassium molar conc 3.7 mmol/L 3.5-5.1 [facility] [employer] Work Phone: Sodium molar conc 140 mmol/L 136-145 [facility] [employer] [facility] Work Phone: Urea nitrogen mass conc 15 mg/dL 7-18 [facility] Work Phone: Urea nitrogen/Creatinine mass ratio 22.2 RATIO High 10-20 [facility] [employer] Work Phone: Rx Refill: eRx Request for P RAVASTATIN SODIUM 40 MG TABon 08-21-2015 Sodium molar conc [id number]`PRAVASTAT IN SODIUM 40 MG TAB```30 Tablet`30`TAKE ONE TABLET BY MOUTH DAILY``7`0` 5`No date sent`[facility]*`[id number]` [id number]``PRAVAST ATIN SODIUM 40 MG TAB Quantity: 30 Tablet Instructions: TAKE ONE TABLET BY MOUTH DAILY [employer] [facility] [employer] Work Phone: Lab Report: Aldolaseon 08-05 Aldolase [Enzymatic activity/volume] in Serum 4.0 U/L Invalid Interpretation Code 3.3-10.3 [facility] Work Phone: [phone] Lab Report: CBC W/Diff, Auto matedon 08-04-2015 Basophils/100 leukocytes 1.2 % High 0-1 [facility] Work Phone: [phone] Basophils/100 WBC (Bld) 1.2 % High 0-1 [facility] Work Phone: [phone] Erythrocyte distribution width Ratio (RBC) 55.1 fL High 35.1-43.9 [facility] Work Phone: [phone] Erythrocyte distribution width Ratio (RBC) 16.8 % High 11.6-14.6 [facility] Work Phone: [phone] Erythrocytes (RBC) 3.95 10*6/uL Low 4.2-5.4 [facility] [employer] Work Phone: [phone] Monocytes/100 leukocytes 18.1 % High 0-10 [facility] [employer] Work Phone: [phone] Monocytes/100 WBC (Bld) 18.1 % High 0-10 [facility] Work Phone: [phone] RBC #/vol (Bld) 3.95 10*6/uL Low 4.2-5.4 [facility] [employer] Work Phone: [phone] RDW-CA 16.8 % High 11.6-14.6 [facility] [employer] Work Phone: [phone] red blood cell distribution width, size density 55.1 fL High 35.1-43.9 [facility] Work Phone: [phone] WBC #/vol (Bld) 4.1 10*3/uL Low 4.4-11.0 [facility] Work Phone: [phone] WBC (Leukocytes) 4.1 10*3/uL Low 4.4-11.0 [facility] Teresa gical [employer] Work Phone: [phone] Eosinophils/100 leukocytes 2.0 % Invalid Interpretation Code 0-5 [facility] Work Phone: [phone] Eosinophils/100 WBC (Bld) 2.0 % 0-5 [facility] [employer] Work Phone: [phone] Hematocrit (HCT) 37.0 % Invalid Interpretation Code 37-47 [facility] [employer] Work Phone: [phone] Hematocrit Volume Fraction (Bld) 37.0 % 37-47 [facility] [employer] Work Phone: [phone] Hemoglobin mass conc (Bld) 12.4 g/dL Invalid Interpretation Code 12.0-15.0 [facility] [employer] Work Phone: [phone] Immature granulocytes #/vol (Bld) 0.500 % 0.0-0.9 [facility] [employer] Work Phone: [phone] immature granulocytes, percentage of total cells, blood 0.500 % Invalid Interpretation Code 0.0-0.9 [facility] [employer] Work Phone: [phone] Lymphocytes 0.86 X10 3/UL Invalid Interpretation Code 0.83-4.51 [facility] [employer] Work Phone: [phone] Lymphocytes #/vol (Bld) 0.86 X10 3/UL 0.83-4.51 [facility] [employer] Work Phone: [phone] Lymphocytes/100 leukocytes 21.1 % Invalid Interpretation Code 19-41 [facility] [employer] Work Phone: [phone] Lymphocytes/100 WBC (Bld) 21.1 % 19-41 [facility] [employer] Work Phone: [phone] MCH 31.4 pg Invalid Interpretation Code 27.0-32.0 [facility] [employer] Work Phone: [phone] MCH Entitic mass (RBC) 31.4 pg 27.0-32.0 [facility] [employer] Work Phone: [phone] MCHC 33.5 G/GL Invalid Interpretation Code 32-36 [facility] [employer] Work Phone: [phone] MCHC mass conc (RBC) 33.5 G/GL 32-36 [facility] [employer] Work Phone: [phone] MCV 93.7 fL Invalid Interpretation Code 81-99 [facility] [employer] Work Phone: [phone] MCV Entitic volume (RBC) 93.7 fL 81-99 [facility] [employer] Work Phone: [phone] neutrophil count, blood 2.3 X10 3/UL Invalid Interpretation Code 2.0-7.7 [facility] Work Phone: [phone] Neutrophils #/vol (Bld) 2.3 X10 3/UL 2.0-7.7 [facility] Work Phone: [phone] Neutrophils/100 leukocytes 57.1 % Invalid Interpretation Code 47-70 [facility] Work Phone: [phone] Neutrophils/100 WBC (Bld) 57.1 % 47-70 [facility] Work Phone: [phone] Platelet mean volume Entitic volume (Bld) 9.1 fL 6.2-12.0 [facility] Work Phone: [phone] Platelets 281 10*3/mm3 Invalid Interpretation Code 150-450 [facility] Work Phone: [phone] Platelets #/vol (Bld) 281 10*3/mm3 150-450 [facility] Work Phone: [phone] PMV by Kojo 9.1 fL Invalid Interpretation Code 6.2-12.0 [facility] Work Phone: [phone] Lab Report: CPK Total, Creat ine Kinaseon 08-04-2015 CK enzyme act/vol 50 U/L Invalid Interpretation Code 26-192 [facility] Work Phone: [phone] Lab Report: Comprehensive Me tabolic Profilon 08-04-2015 Albumin mass conc 3.5 g/dL 3.4-5.0 [facility] Teresa gical [facility] Work Phone: [phone] Albumin/Globulin mass ratio 0.8 {ratio} Low 0.9-2.4 [facility] Work Phone: [phone] ALP enzyme act/vol (Bld) 69 U/L 50-136 [facility] Work Phone: [phone] ALT enzyme act/vol 36 U/L 12-78 [facility] Work Phone: [phone] AST enzyme act/vol 27 U/L 15-37 [facility] Work Phone: [phone] Bilirubin mass conc 0.50 mg/dL 0.20-1.00 [facility] S urgical [facility] Work Phone: Globulin mass conc (S) 4.4 g/dL High 2.3-3.5 [facility] Work Phone: Protein mass conc 7.9 g/dL 6.4-8.2 [facility] Teresa [facility] [employer] Work Phone: Lab Report: Vitamin D,25 Hyd roxyon 04-23-2015 Vitamin D 25-OH 57.5 ng/mL [facility] [employer] [facility] [employer] Work Phone: Lab Report: Thyroid Stim Hor shakira (TSH)on 04-22-2015 Thyrotropin Qn 0.34 u[iU]/mL Low 0.358-3.74 [facility] [employer] Work Phone: Office Visiton 12-02-2014 Documentation of current medications (procedure) Done Invalid Interpretation Code [facility] [employer] [employer] Work Phone: Protein mass conc Done [facility] [employer] Work Phone: Tobacco smoking status WVIS Never Invalid Interpretation Code [facility] [employer] Work Phone: Tobacco smoking status [facility] Never smoker [facility] [employer] Work Phone: Tobacco use [facility] Never smoker Invalid Interpretation Code [facility] [employer] Work Phone: Lab Report: Lipid Profileon 11-26-2014 Cholesterol in HDL mass conc 50 mg/dL Invalid Interpretation Code [facility] [employer] Work Phone: Cholesterol in LDL mass conc 69 mg/dL Invalid Interpretation Code 0-130 [facility] [employer] Work Phone: Cholesterol mass conc 134 mg/dL Invalid Interpretation Code 200 [facility] [employer] Work Phone: Lipoprotein.pre-beta mass conc 15 mg/dL Invalid Interpretation Code 5-40 [facility] [employer] Work Phone: Triglyceride mass conc 76 mg/dL Invalid Interpretation Code [facility] [employer] Work Phone: Lab Report: CBC W/Diff, Auto matedon 10-05-2014 Absolute Neut 3.7 X10 3/UL 2.0-7.7 [facility] Work Phone: Absolute Neutrophil count 3.7 X10 3/UL Invalid Interpretation Code 2.0-7.7 [facility] Work Phone: Lymphocytes 0.78 X10 3/UL Low 0.83-4.51 [facility] Work Phone: Lymphocytes #/vol (Bld) 0.78 X10 3/UL Low 0.83-4.51 [facility] Work Phone: Lab Report: CBC W/Diff, Auto matedon 07-10-2014 GE use only - for [employer] import when terms are not otherwise specified SLIDE SCANNED Invalid Interpretation Code [facility] Work Phone: SMEAR COMMENT SLIDE SCANNED [facility] Work Phone: Office Visit: HTN follow upo n 05-04-2014 Protein mass conc yes [facility] Teresa [facility] Work Phone: Smoking cessation education (procedure) yes Invalid Interpretation Code [facility] Work Phone: Office Visit: HTN follow up, PAPon 12-06-2011 General categories Cyto stain Interp (Cervical or vaginal smear or scraping) Normal Invalid Interpretation Code [facility] Work Phone: COVID-19 virus antigen assay SARS-CoV-2 (COVID-19) Ag IA.rapid Ql (Resp) [facility] Work Phone: Vital Signs Date Time Vital Sign Value Performing Clinician Facility 09-26-2024 08:10-0400 Body height 152.[address] Catia Christian DO Work Phone: [facility] 09-26-2024 08:10-0400 Body mass index (BMI) [Ratio] 26.7 kg/m2 Dr. Catia Christian DO Work Phone: [facility] 09-26-2024 08:10-0400 Body temperature 97.2 [degF] Dr. Catia Christian DO Work Phone: [facility] 09-26-2024 08:10-0400 Body weight 62.[address] Catia Christian DO Work Phone: [facility] 09-26-2024 08:10-0400 Diastolic blood pressure 75 mm[Hg] Dr. Catia Christian DO Work Phone: [facility] 09-26-2024 08:10-0400 Heart rate 66 /min Dr. Catia Christian DO Work Phone: [facility] 09-26-2024 08:10-0400 Respiratory rate 16 /min Dr. Catia Christian DO Work Phone: [facility] 09-26-2024 08:10-0400 SaO2% (BldA) [Mass fraction] 95 % Dr. Catia Christian DO Work Phone: [facility] 09-26-2024 08:10-0400 Systolic blood pressure 162 mm[Hg] Dr. Catia Christian DO Work Phone: [facility] 09-24-2024 11:05-0400 Body temperature 97.4 [degF] Dr. Catia Christian DO Work Phone: [facility] 09-24-2024 11:05-0400 Diastolic blood pressure 72 mm[Hg] Dr. Catia Christian DO Work Phone: [facility] 09-24-2024 11:05-0400 Heart rate 57 /min Dr. Catia Christian DO Work Phone: [facility] 09-24-2024 11:05-0400 Respiratory rate 16 /min Dr. Catia Christian DO Work Phone: [facility] 09-24-2024 11:05-0400 Systolic blood pressure 146 mm[Hg] Dr. Catia Christian DO Work Phone: [facility] 09-24-2024 08:09-0400 Body height 152.[address] Catia Christian DO Work Phone: [facility] 09-24-2024 08:09-0400 SaO2% (BldA) [Mass fraction] 96 % Dr. Catia Christian DO Work Phone: [facility] 08-01-2024 08:15-0400 Body height 152.[address] Catia Christian DO Work Phone: [facility] 08-01-2024 08:15-0400 Body mass index (BMI) [Ratio] 26.5 kg/m2 Dr. Catia Christian DO Work Phone: [facility] 08-01-2024 08:15-0400 Body temperature 96.3 [degF] Dr. Catia Christian DO Work Phone: [facility] 08-01-2024 08:15-0400 Body weight 61.[address] Catia Christian DO Work Phone: [facility] 08-01-2024 08:15-0400 Diastolic blood pressure 78 mm[Hg] Dr. Catia Christian DO Work Phone: [facility] 08-01-2024 08:15-0400 Heart rate 76 /min Dr. Catia Christian DO Work Phone: [facility] 08-01-2024 08:15-0400 Respiratory rate 16 /min Dr. Catia Christian DO Work Phone: [facility] 08-01-2024 08:15-0400 SaO2% (BldA) [Mass fraction] 96 % Dr. Catia Christian DO Work Phone: [facility] 08-01-2024 08:15-0400 Systolic blood pressure 164 mm[Hg] Dr. Catia Christian DO Work Phone: [facility] 07-30-2024 08:04-0400 Body height 152.[address] Catia Christian DO Work Phone: [facility] 07-30-2024 08:04-0400 Body mass index (BMI) [Ratio] 26.5 kg/m2 Dr. Catia Christian DO Work Phone: [facility] 07-30-2024 08:04-0400 Body temperature 96.5 [degF] Dr. Catia Christian DO Work Phone: [facility] 07-30-2024 08:04-0400 Body weight 61.[address] Catia Christian DO Work Phone: [facility] 07-30-2024 08:04-0400 Diastolic blood pressure 76 mm[Hg] Dr. Catia Christian DO Work Phone: [facility] 07-30-2024 08:04-0400 Heart rate 76 /min Dr. Catia Christian DO Work Phone: [facility] 07-30-2024 08:04-0400 Respiratory rate 18 /min Dr. Catia Christian DO Work Phone: [facility] 07-30-2024 08:04-0400 SaO2% (BldA) [Mass fraction] 95 % Dr. Catia Christian DO Work Phone: [facility] 07-30-2024 08:04-0400 Systolic blood pressure 150 mm[Hg] Dr. Catia Christian DO Work Phone: [facility] 06-04-2024 11:20-0400 Body temperature 96.6 [degF] Dr. Catia Christian DO Work Phone: [facility] 06-04-2024 11:20-0400 Diastolic blood pressure 70 mm[Hg] Dr. Catia Christian DO Work Phone: [facility] 06-04-2024 11:20-0400 Heart rate 56 /min Dr. Catia Christian DO Work Phone: [facility] 06-04-2024 11:20-0400 Respiratory rate 16 /min Dr. Catia Christian DO Work Phone: [facility] 06-04-2024 11:20-0400 Systolic blood pressure 143 mm[Hg] Dr. Catia Christian DO Work Phone: [facility] 06-04-2024 08:20-0400 Body height 152.[address] Catia Christian DO Work Phone: [facility] 06-04-2024 08:20-0400 Body mass index (BMI) [Ratio] 27.5 kg/m2 Dr. Catia Christian DO Work Phone: [facility] 06-04-2024 08:20-0400 Body weight 63.[address] Catia Christian DO Work Phone: [facility] 06-04-2024 08:20-0400 SaO2% (BldA) [Mass fraction] 96 % Dr. Catia Christian DO Work Phone: [facility] 06-02-2024 08:27-0400 Body mass index (BMI) [Ratio] 25.5 kg/m2 Dr. Catia Christian DO Work Phone: [facility] 06-02-2024 08:27-0400 Body temperature 96.9 [degF] Dr. Catia Christian DO Work Phone: [facility] 06-02-2024 08:27-0400 Body weight 59.[address] Catia Christian DO Work Phone: [facility] 06-02-2024 08:27-0400 Diastolic blood pressure 70 mm[Hg] Dr. Catia Christian DO Work Phone: [facility] 06-02-2024 08:27-0400 Heart rate 73 /min Dr. Catia Christian DO Work Phone: [facility] 06-02-2024 08:27-0400 Respiratory rate 16 /min Dr. Catia Christian DO Work Phone: [facility] 06-02-2024 08:27-0400 SaO2% (BldA) [Mass fraction] 95 % Dr. Catia Christian DO Work Phone: [facility] 06-02-2024 08:27-0400 Systolic blood pressure 156 mm[Hg] Dr. Catia Christian DO Work Phone: [facility] 04-11-2024 08:47-0500 Body height 152.[address] Catia Christian DO Work Phone: [facility] 04-11-2024 08:47-0500 Body mass index (BMI) [Ratio] 27.5 kg/m2 Dr. Catia Christian DO Work Phone: [facility] 04-11-2024 08:47-0500 Body temperature 96.8 [degF] Dr. Catia Christian DO Work Phone: [facility] 04-11-2024 08:47-0500 Body weight 63.[address] Catia Christian DO Work Phone: [facility] 04-11-2024 08:47-0500 Diastolic blood pressure 72 mm[Hg] Dr. Catia Christian DO Work Phone: [facility] 04-11-2024 08:47-0500 Heart rate 80 /min Dr. Catia Christian DO Work Phone: [facility] 04-11-2024 08:47-0500 Respiratory rate 16 /min Dr. Catia Christian DO Work Phone: [facility] 04-11-2024 08:47-0500 SaO2% (BldA) [Mass fraction] 96 % Dr. Catia Christian DO Work Phone: [facility] 04-11-2024 08:47-0500 Systolic blood pressure 158 mm[Hg] Dr. Catia Christian DO Work Phone: [facility] 04-09-2024 08:41-0500 Body mass index (BMI) [Ratio] 27.5 kg/m2 Dr. Catia Christian DO Work Phone: [facility] 04-09-2024 08:41-0500 Body temperature 97 [degF] Dr. Catia Christian DO Work Phone: [facility] 04-09-2024 08:41-0500 Body weight 63.[address] Catia Christian DO Work Phone: [facility] 04-09-2024 08:41-0500 Diastolic blood pressure 79 mm[Hg] Dr. Catia Christian DO Work Phone: [facility] 04-09-2024 08:41-0500 Heart rate 69 /min Dr. Catia Christian DO Work Phone: [facility] 04-09-2024 08:41-0500 Respiratory rate 14 /min Dr. Catia Christina DO Work Phone: [facility] 04-09-2024 08:41-0500 SaO2% (BldA) [Mass fraction] 96 % Dr. Catia Christian DO Work Phone: [facility] 04-09-2024 08:41-0500 Systolic blood pressure 145 mm[Hg] Dr. Catia Christian DO Work Phone: [facility] 02-15-2024 11:48-0500 Body temperature 96.7 [degF] Dr. Catia Christian DO Work Phone: [facility] 02-15-2024 11:48-0500 Diastolic blood pressure 86 mm[Hg] Dr. Catia Christian DO Work Phone: [facility] 02-15-2024 11:48-0500 Heart rate 70 /min Dr. Catia Christian DO Work Phone: [facility] 02-15-2024 11:48-0500 Respiratory rate 16 /min Dr. Catia Christian DO Work Phone: [facility] 02-15-2024 11:48-0500 SaO2% (BldA) [Mass fraction] 92 % Dr. Catia Christian DO Work Phone: [facility] 02-15-2024 11:48-0500 Systolic blood pressure 161 mm[Hg] Dr. Catia Christian DO Work Phone: [facility] 02-15-2024 08:30-0500 Body mass index (BMI) [Ratio] 27.6 kg/m2 Dr. Catia Christian DO Work Phone: [facility] 02-15-2024 08:30-0500 Body weight 64.[address] Catia Christian DO Work Phone: [facility] 02-13-2024 08:24-0500 Body temperature 97.3 [degF] Dr. Catia Christian DO Work Phone: [facility] 02-13-2024 08:24-0500 Diastolic blood pressure 77 mm[Hg] Dr. Catia Christian DO Work Phone: [facility] 02-13-2024 08:24-0500 Heart rate 75 /min Dr. Catia Christian DO Work Phone: [facility] 02-13-2024 08:24-0500 Respiratory rate 16 /min Dr. Catia Christian DO Work Phone: [facility] 02-13-2024 08:24-0500 SaO2% (BldA) [Mass fraction] 96 % Dr. Catia Christian DO Work Phone: [facility] 02-13-2024 08:24-0500 Systolic blood pressure 150 mm[Hg] Dr. Catia Christian DO Work Phone: [facility] 05-10-2023 08:35-0400 Body height 152.4 cm [facility] 05-10-2023 08:35-0400 Body mass index (BMI) [Ratio] 27.7 kg/m2 [facility] 05-10-2023 08:35-0400 Body temperature 97.6 [degF] [facility] 05-10-2023 08:35-0400 Body weight 64.41 kg [facility] 05-10-2023 08:35-0400 Diastolic blood pressure 79 mm[Hg] [facility] 05-10-2023 08:35-0400 Heart rate 77 /min [facility] 05-10-2023 08:35-0400 Respiratory rate 16 /min [facility] 05-10-2023 08:35-0400 SaO2% (BldA) [Mass fraction] 96 % [facility] 05-10-2023 08:35-0400 Systolic blood pressure 175 mm[Hg] [facility] 05-09-2023 08:15-0400 Body height 152.4 cm [facility] 05-09-2023 08:15-0400 Body mass index (BMI) [Ratio] 26.9 kg/m2 [facility] 05-09-2023 08:15-0400 Body temperature 96.6 [degF] [facility] 05-09-2023 08:15-0400 Body weight 62.59 kg [facility] 05-09-2023 08:15-0400 Diastolic blood pressure 78 mm[Hg] [facility] 05-09-2023 08:15-0400 Heart rate 76 /min [facility] 05-09-2023 08:15-0400 Respiratory rate 16 /min [facility] 05-09-2023 08:15-0400 SaO2% (BldA) [Mass fraction] 95 % [facility] 05-09-2023 08:15-0400 Systolic blood pressure 150 mm[Hg] [facility] 04-06-2023 20:42-0500 Body temperature 97.6 [degF] [facility] 04-06-2023 20:42-0500 Diastolic blood pressure 109 mm[Hg] [facility] 04-06-2023 20:42-0500 Heart rate 111 /min [facility] 04-06-2023 20:42-0500 Respiratory rate 18 /min [facility] 04-06-2023 20:42-0500 SaO2% (BldA) [Mass fraction] 92 % [facility] 04-06-2023 20:42-0500 Systolic blood pressure 180 mm[Hg] [facility] 04-06-2023 16:10-0500 Body height 152.4 cm [facility] 04-06-2023 16:10-0500 Body mass index (BMI) [Ratio] 30.7 kg/m2 [facility] 04-06-2023 16:10-0500 Body weight 71.5 kg [facility] 03-23-2023 12:56-0500 Body height 152.4 cm [facility] 03-23-2023 12:56-0500 Body mass index (BMI) [Ratio] 29.2 kg/m2 [facility] 03-23-2023 12:56-0500 Body temperature 97.4 [degF] [facility] 03-23-2023 12:56-0500 Body weight 68.03 kg [facility] 03-23-2023 12:56-0500 Diastolic blood pressure 83 mm[Hg] [facility] 03-23-2023 12:56-0500 Heart rate 72 /min [facility] 03-23-2023 12:56-0500 Respiratory rate 16 /min [facility] 03-23-2023 12:56-0500 SaO2% (BldA) [Mass fraction] 95 % [facility] 03-23-2023 12:56-0500 Systolic blood pressure 161 mm[Hg] [facility] 03-09-2023 08:46-0500 Body temperature 97.6 [degF] [facility] 03-09-2023 08:46-0500 Diastolic blood pressure 73 mm[Hg] [facility] 03-09-2023 08:46-0500 Heart rate 64 /min [facility] 03-09-2023 08:46-0500 Respiratory rate 16 /min [facility] 03-09-2023 08:46-0500 Systolic blood pressure 132 mm[Hg] [facility] 03-08-2023 08:21-0500 Body mass index (BMI) [Ratio] 29.2 kg/m2 [facility] 03-08-2023 08:21-0500 Body temperature 97.2 [degF] [facility] 03-08-2023 08:21-0500 Body weight 68.03 kg [facility] 03-08-2023 08:21-0500 Diastolic blood pressure 74 mm[Hg] [facility] 03-08-2023 08:21-0500 Heart rate 69 /min [facility] 03-08-2023 08:21-0500 Respiratory rate 16 /min [facility] 03-08-2023 08:21-0500 SaO2% (BldA) [Mass fraction] 94 % [facility] 03-08-2023 08:21-0500 Systolic blood pressure 146 mm[Hg] [facility] 01-15-2023 08:50-0500 Body height 152.4 cm [facility] 01-15-2023 08:50-0500 Body mass index (BMI) [Ratio] 29.2 kg/m2 [facility] 01-15-2023 08:50-0500 Body temperature 97.3 [degF] [facility] 01-15-2023 08:50-0500 Body weight 68.03 kg [facility] 01-15-2023 08:50-0500 Diastolic blood pressure 79 mm[Hg] [facility] 01-15-2023 08:50-0500 Heart rate 89 /min [facility] 01-15-2023 08:50-0500 Respiratory rate 18 /min [facility] 01-15-2023 08:50-0500 Systolic blood pressure 142 mm[Hg] [facility] 01-11-2023 08:27-0500 Body height 152.4 cm [facility] 01-11-2023 08:27-0500 Body temperature 96.4 [degF] [facility] 01-11-2023 08:27-0500 Diastolic blood pressure 71 mm[Hg] [facility] 01-11-2023 08:27-0500 Heart rate 68 /min [facility] 01-11-2023 08:27-0500 Respiratory rate 16 /min [facility] 01-11-2023 08:27-0500 SaO2% (BldA) [Mass fraction] 95 % [facility] 01-11-2023 08:27-0500 Systolic blood pressure 154 mm[Hg] [facility] 11-09-2022 08:24-0400 Body height 152.4 cm [facility] 11-09-2022 08:24-0400 Body temperature 97.7 [degF] [facility] 11-09-2022 08:24-0400 Diastolic blood pressure 80 mm[Hg] [facility] 11-09-2022 08:24-0400 Heart rate 75 /min [facility] 11-09-2022 08:24-0400 Respiratory rate 16 /min [facility] 11-09-2022 08:24-0400 Systolic blood pressure 141 mm[Hg] [facility] 11-08-2022 08:23-0400 Body height 152.4 cm [facility] 11-08-2022 08:23-0400 Body mass index (BMI) [Ratio] 27.3 kg/m2 [facility] 11-08-2022 08:23-0400 Body weight 63.5 kg [facility] 09-22-2022 13:28-0400 Body temperature 97.3 [degF] [facility] 09-22-2022 13:28-0400 Diastolic blood pressure 78 mm[Hg] [facility] 09-22-2022 13:28-0400 Heart rate 72 /min [facility] 09-22-2022 13:28-0400 Respiratory rate 16 /min [facility] 09-22-2022 13:28-0400 SaO2% (BldA) [Mass fraction] 96 % [facility] 09-22-2022 13:28-0400 Systolic blood pressure 151 mm[Hg] [facility] 09-07-2022 08:02-0400 Body height 152.[address] Catia Christian Work Phone: [facility] 09-07-2022 08:02-0400 Body temperature 97.2 [degF] Dr. Catia Christian Work Phone: [facility] 09-07-2022 08:02-0400 Diastolic blood pressure 84 mm[Hg] Dr. Catia Christian Work Phone: [facility] 09-07-2022 08:02-0400 Heart rate 71 /min Dr. Catia Christian Work Phone: [facility] 09-07-2022 08:02-0400 Respiratory rate 18 /min Dr. Catia Christian Work Phone: [facility] 09-07-2022 08:02-0400 SaO2% (BldA) [Mass fraction] 96 % Dr. Catia Christian Work Phone: [facility] 09-07-2022 08:02-0400 Systolic blood pressure 168 mm[Hg] Dr. Catia Christian Work Phone: [facility] 09-06-2022 11:42-0400 Body temperature 97 [degF] Dr. Catia Christian Work Phone: [facility] 09-06-2022 11:42-0400 Diastolic blood pressure 78 mm[Hg] Dr. Catia Christian Work Phone: [facility] 09-06-2022 11:42-0400 Heart rate 62 /min Dr. Catia Christian Work Phone: [facility] 09-06-2022 11:42-0400 Systolic blood pressure 151 mm[Hg] Dr. Catia Christian Work Phone: [facility] 09-06-2022 08:20-0400 Body height 152.[address] Catia Christian Work Phone: [facility] 09-06-2022 08:20-0400 Body mass index (BMI) [Ratio] 28.3 kg/m2 Dr. Catia Christian Work Phone: [facility] 09-06-2022 08:20-0400 Body weight 65.[address] Catia Christian Work Phone: [facility] 09-06-2022 08:20-0400 Respiratory rate 18 /min Dr. Catia Christian Work Phone: [facility] 09-06-2022 08:20-0400 SaO2% (BldA) [Mass fraction] 95 % Dr. Catia Christian Work Phone: [facility] 07-13-2022 08:14-0400 Body height 152.[address] Catia Christian Work Phone: [facility] 07-13-2022 08:14-0400 Body mass index (BMI) [Ratio] 26.5 kg/m2 Dr. Catia Christian Work Phone: [facility] 07-13-2022 08:14-0400 Body temperature 97.4 [degF] Dr. Catia Christian Work Phone: [facility] 07-13-2022 08:14-0400 Body weight 61.[address] Catia Christian Work Phone: [facility] 07-13-2022 08:14-0400 Diastolic blood pressure 69 mm[Hg] Dr. Catia Christian Work Phone: [facility] 07-13-2022 08:14-0400 Heart rate 72 /min Dr. Catia Christian Work Phone: [facility] 07-13-2022 08:14-0400 Respiratory rate 18 /min Dr. Catia Christian Work Phone: [facility] 07-13-2022 08:14-0400 SaO2% (BldA) [Mass fraction] 97 % Dr. Catia Christian Work Phone: [facility] 07-13-2022 08:14-0400 Systolic blood pressure 152 mm[Hg] Dr. Catia Christian Work Phone: [facility] 07-12-2022 08:05-0400 Body height 152.[address] Catia Christian Work Phone: [facility] 06-07-2023 08:05-0400 Body mass index (BMI) [Ratio] 26.5 kg/m2 Dr. Catia Christian Work Phone: [facility] 07-12-2022 08:05-0400 Body temperature 97.6 [degF] Dr. Catia Christian Work Phone: [facility] 07-12-2022 08:05-0400 Body weight 61.[address] Catia Christian Work Phone: [facility] 07-12-2022 08:05-0400 Diastolic blood pressure 74 mm[Hg] Dr. Catia Christian Work Phone: [facility] 07-12-2022 08:05-0400 Heart rate 69 /min Dr. Catia Christian Work Phone: [facility] 07-12-2022 08:05-0400 Respiratory rate 18 /min Dr. Catia Christian Work Phone: [facility] 07-12-2022 08:05-0400 SaO2% (BldA) [Mass fraction] 96 % Dr. Catia Christian Work Phone: [facility] 07-12-2022 08:05-0400 Systolic blood pressure 144 mm[Hg] Dr. Catia Christian Work Phone: [facility] 05-25-2022 09:29-0400 Body height 152.[address] Catia Christian Work Phone: [facility] 05-25-2022 09:29-0400 Body mass index (BMI) [Ratio] 28.1 kg/m2 Dr. Catia Christian Work Phone: [facility] 05-25-2022 09:29-0400 Body temperature 93.5 [degF] Dr. Catia Christian Work Phone: [facility] 05-25-2022 09:29-0400 Body weight 65.[address] Catia Christian Work Phone: [facility] 05-25-2022 09:29-0400 Diastolic blood pressure 89 mm[Hg] Dr. Catia Christian Work Phone: [facility] 05-25-2022 09:29-0400 Heart rate 71 /min Dr. Catia Christian Work Phone: [facility] 05-25-2022 09:29-0400 Respiratory rate 16 /min Dr. Catia Christian Work Phone: [facility] 05-25-2022 09:29-0400 SaO2% (BldA) [Mass fraction] 94 % Dr. Catia Christian Work Phone: [facility] 05-25-2022 09:29-0400 Systolic blood pressure 161 mm[Hg] Dr. Catia Christian Work Phone: [facility] 05-18-2022 08:24-0400 Body height 152.[address] Catia Christian Work Phone: [facility] 05-18-2022 08:24-0400 Body mass index (BMI) [Ratio] 26.5 kg/m2 Dr. Catia Christian Work Phone: [facility] 05-18-2022 08:24-0400 Body temperature 97.2 [degF] Dr. Catia Christian Work Phone: [facility] 05-18-2022 08:24-0400 Body weight 61.[address] Catia Christian Work Phone: [facility] 05-18-2022 08:24-0400 Diastolic blood pressure 73 mm[Hg] Dr. Catia Christian Work Phone: [facility] 05-18-2022 08:24-0400 Heart rate 68 /min Dr. Catia Christian Work Phone: [facility] 05-18-2022 08:24-0400 Respiratory rate 16 /min Dr. Catia Christian Work Phone: [facility] 05-18-2022 08:24-0400 SaO2% (BldA) [Mass fraction] 95 % Dr. Catia Christian Work Phone: [facility] 05-18-2022 08:24-0400 Systolic blood pressure 147 mm[Hg] Dr. Catia Christian Work Phone: [facility] 05-17-2022 08:16-0400 Body temperature 97.1 [degF] Dr. Catia Christian Work Phone: [facility] 05-17-2022 08:16-0400 Diastolic blood pressure 74 mm[Hg] Dr. Catia Christian Work Phone: [facility] 05-17-2022 08:16-0400 Heart rate 68 /min Dr. Catia Christian Work Phone: [facility] 05-17-2022 08:16-0400 Respiratory rate 16 /min Dr. Catia Christian Work Phone: [facility] 05-17-2022 08:16-0400 SaO2% (BldA) [Mass fraction] 97 % Dr. Catia Christian Work Phone: [facility] 05-17-2022 08:16-0400 Systolic blood pressure 140 mm[Hg] Dr. Catia Christian Work Phone: [facility] 03-24-2022 12:39-0500 Body temperature 97.5 [degF] Dr. Catia Christian Work Phone: [facility] 03-24-2022 12:39-0500 Diastolic blood pressure 75 mm[Hg] Dr. Catia Christian Work Phone: [facility] 03-24-2022 12:39-0500 Heart rate 66 /min Dr. Catia Christian Work Phone: [facility] 03-24-2022 12:39-0500 Respiratory rate 16 /min Dr. Catia Christian Work Phone: [facility] 03-24-2022 12:39-0500 SaO2% (BldA) [Mass fraction] 94 % Dr. Catia Christian Work Phone: [facility] 03-24-2022 12:39-0500 Systolic blood pressure 150 mm[Hg] Dr. Catia Christian Work Phone: [facility] 03-24-2022 08:46-0500 Body height 152.[address] Catia Christian Work Phone: [facility] 03-24-2022 08:46-0500 Body mass index (BMI) [Ratio] 26.9 kg/m2 Dr. Catia Christian Work Phone: [facility] 03-24-2022 08:46-0500 Body weight 62.[address] Catia Christian Work Phone: [facility] 03-23-2022 11:58-0500 Body temperature 97.4 [degF] Dr. Catia Christian Work Phone: [facility] 03-23-2022 11:58-0500 Diastolic blood pressure 71 mm[Hg] Dr. Catia Christian Work Phone: [facility] 03-23-2022 11:58-0500 Heart rate 59 /min Dr. Catia Christian Work Phone: [facility] 03-23-2022 11:58-0500 Respiratory rate 16 /min Dr. Catia Christian Work Phone: [facility] 03-23-2022 11:58-0500 SaO2% (BldA) [Mass fraction] 96 % Dr. Catia Christian Work Phone: [facility] 03-23-2022 11:58-0500 Systolic blood pressure 145 mm[Hg] Dr. Catia Christian Work Phone: [facility] 01-30-2022 13:38-0500 Body temperature 97.7 [degF] Dr. Catia Christian Work Phone: [facility] 01-30-2022 13:38-0500 Diastolic blood pressure 86 mm[Hg] Dr. Catia Christian Work Phone: [facility] 01-30-2022 13:38-0500 Heart rate 68 /min Dr. Catia Christian Work Phone: [facility] 01-30-2022 13:38-0500 Respiratory rate 16 /min Dr. Catia Christian Work Phone: [facility] 01-30-2022 13:38-0500 SaO2% (BldA) [Mass fraction] 94 % Dr. Catia Christian Work Phone: [facility] 01-30-2022 13:38-0500 Systolic blood pressure 156 mm[Hg] Dr. Catia Christian Work Phone: [facility] 01-25-2022 15:11-0500 Body height 152.[address] Caita Christian Work Phone: [facility] 01-25-2022 15:11-0500 Body weight 63.[address] Catia Christian Work Phone: [facility] 01-19-2022 17:43-0500 Heart rate 72 /min Dr. Catia Christian Work Phone: [facility] Work Phone: 01-19-2022 17:42-0500 Diastolic blood pressure 93 mm[Hg] Dr. Catia Christian Work Phone: [facility] Work Phone: 01-19-2022 17:42-0500 Systolic blood pressure 161 mm[Hg] Dr. Catia Christian Work Phone: [facility] Work Phone: 01-19-2022 15:10-0500 Body temperature 97.7 [degF] Dr. Catia Christian Work Phone: [facility] Work Phone: 01-19-2022 15:10-0500 Respiratory rate 16 /min Dr. Catia Christian Work Phone: [facility] Work Phone: 01-19-2022 15:10-0500 SaO2% (BldA) [Mass fraction] 93 % Dr. Catia Christian Work Phone: [facility] Work Phone: 01-18-2022 14:08-0500 Body height 152.[address] Catia Christian Work Phone: [facility] Work Phone: 01-18-2022 14:08-0500 Body weight 63.[address] Catia Christian Work Phone: [facility] Work Phone: 01-03-2022 18:15-0500 Body mass index (BMI) [Ratio] 27.4 kg/m2 Dr. Catia Christian Work Phone: [facility] 01-03-2022 16:09-0500 Body mass index (BMI) [Ratio] 27.6 kg/m2 Dr. Catia Christian Work Phone: [facility] 01-03-2022 15:38-0500 Body temperature 97.9 [degF] Dr. Catia Christian Work Phone: [facility] 01-03-2022 15:38-0500 Diastolic blood pressure 99 mm[Hg] Dr. Catia Christian Work Phone: [facility] 01-03-2022 15:38-0500 Heart rate 85 /min Dr. Catia Christian Work Phone: [facility] 01-03-2022 15:38-0500 Respiratory rate 16 /min Dr. Catia Christian Work Phone: [facility] 01-03-2022 15:38-0500 SaO2% (BldA) [Mass fraction] 96 % Dr. Catia Chirstian Work Phone: [facility] 01-03-2022 15:38-0500 Systolic blood pressure 164 mm[Hg] Dr. Catia Christian Work Phone: [facility] 01-03-2022 13:00-0500 Body height 152.[address] Catia Christian Work Phone: [facility] Work Phone: 01-03-2022 13:00-0500 Body weight 64.[address] Catia Christian Work Phone: [facility] 01-03-2022 03:47-0500 Inhaled oxygen flow rate 2 L/min Dr. Catia Christian Work Phone: [facility] 01-02-2022 04:30-0500 Diastolic blood pressure 88 mm[Hg] [facility] Work Phone: 01-02-2022 04:30-0500 Heart rate 96 /min [facility] Work Phone: 01-02-2022 04:30-0500 Respiratory rate 18 /min [facility] Work Phone: 01-02-2022 04:30-0500 SaO2% (BldA) [Mass fraction] 96 % [facility] Work Phone: 01-02-2022 04:30-0500 Systolic blood pressure 158 mm[Hg] [facility] Work Phone: 01-02-2022 04:00-0500 Body temperature 98.2 [degF] [facility] Work Phone: 01-02-2022 02:27-0500 Body height 152.4 cm [facility] Work Phone: 01-02-2022 02:27-0500 Body mass index (BMI) [Ratio] 29 kg/m2 [facility] Work Phone: 01-02-2022 02:27-0500 Body weight 67.4 kg [facility] Work Phone: 12-27-2021 08:03-0500 Body temperature 98.4 [degF] [facility] 12-27-2021 08:03-0500 Diastolic blood pressure 86 mm[Hg] [facility] 12-27-2021 08:03-0500 Heart rate 98 /min [facility] 12-27-2021 08:03-0500 SaO2% (BldA) [Mass fraction] 97 % [facility] 12-27-2021 08:03-0500 Systolic blood pressure 153 mm[Hg] [facility] 11-03-2021 08:13-0400 Body height 152.4 cm [facility] Work Phone: 11-03-2021 08:13-0400 Body mass index (BMI) [Ratio] 26.9 kg/m2 [facility] 11-03-2021 08:13-0400 Body temperature 97.2 [degF] [facility] 11-03-2021 08:13-0400 Body weight 62.59 kg [facility] 11-03-2021 08:13-0400 Diastolic blood pressure 72 mm[Hg] [facility] 11-03-2021 08:13-0400 Heart rate 86 /min [facility] 11-03-2021 08:13-0400 Respiratory rate 14 /min [facility] 11-03-2021 08:13-0400 SaO2% (BldA) [Mass fraction] 100 % [facility] 11-03-2021 08:13-0400 Systolic blood pressure 131 mm[Hg] [facility] 11-02-2021 08:13-0400 Body mass index (BMI) [Ratio] 26.9 kg/m2 [facility] 11-02-2021 08:13-0400 Body temperature 97.8 [degF] [facility] 11-02-2021 08:13-0400 Body weight 62.59 kg [facility] 11-02-2021 08:13-0400 Diastolic blood pressure 95 mm[Hg] [facility] 11-02-2021 08:13-0400 Heart rate 95 /min [facility] 11-02-2021 08:13-0400 Respiratory rate 14 /min [facility] 11-02-2021 08:13-0400 SaO2% (BldA) [Mass fraction] 98 % [facility] 11-02-2021 08:13-0400 Systolic blood pressure 152 mm[Hg] [facility] 09-08-2021 11:15-0400 Diastolic blood pressure 75 mm[Hg] Dr. Catia Christian Work Phone: [facility] Work Phone: 09-08-2021 11:15-0400 Heart rate 72 /min Dr. Catia Christian Work Phone: [facility] Work Phone: 09-08-2021 11:15-0400 Systolic blood pressure 140 mm[Hg] Dr. Catia Christian Work Phone: [facility] Work Phone: 09-08-2021 08:08-0400 Body height 153.[address] Catia Christian Work Phone: [facility] Work Phone: 09-08-2021 08:08-0400 Body mass index (BMI) [Ratio] 25.9 kg/m2 Dr. Catia Christian Work Phone: [facility] Work Phone: 09-08-2021 08:08-0400 Body temperature 96.3 [degF] Dr. Catia Christian Work Phone: [facility] Work Phone: 09-08-2021 08:08-0400 Body weight 61.[address] Catia Christian Work Phone: [facility] Work Phone: 09-08-2021 08:08-0400 Respiratory rate 14 /min Dr. Catia Christian Work Phone: [facility] Work Phone: 09-08-2021 08:08-0400 SaO2% (BldA) [Mass fraction] 97 % Dr. Catia Christian Work Phone: [facility] Work Phone: 09-07-2021 11:24-0400 Body temperature 96.1 [degF] Dr. Catia Christian Work Phone: [facility] Work Phone: 09-07-2021 11:24-0400 Diastolic blood pressure 73 mm[Hg] Dr. Catia Christian Work Phone: [facility] Work Phone: 09-07-2021 11:24-0400 Heart rate 73 /min Dr. Catia Christian Work Phone: [facility] Work Phone: 09-07-2021 11:24-0400 Respiratory rate 16 /min Dr. Catia Christian Work Phone: [facility] Work Phone: 09-07-2021 11:24-0400 SaO2% (BldA) [Mass fraction] 97 % Dr. Catia Christian Work Phone: [facility] Work Phone: 09-07-2021 11:24-0400 Systolic blood pressure 147 mm[Hg] Dr. Catia Christian Work Phone: [facility] Work Phone: 07-12-2021 13:20-0400 Body height 153.[address] Catia Christian Work Phone: [facility] Work Phone: 07-12-2021 13:20-0400 Body temperature 97.3 [degF] Dr. Catia Christian Work Phone: [facility] Work Phone: 07-12-2021 13:20-0400 Diastolic blood pressure 89 mm[Hg] Dr. Catia Christian Work Phone: [facility] Work Phone: 07-12-2021 13:20-0400 Heart rate 94 /min Dr. Catia Christian Work Phone: [facility] Work Phone: 07-12-2021 13:20-0400 Respiratory rate 16 /min Dr. Catia Christian Work Phone: [facility] Work Phone: 07-12-2021 13:20-0400 Systolic blood pressure 171 mm[Hg] Dr. Catia Christian Work Phone: [facility] Work Phone: 07-08-2021 07:59-0400 Body mass index (BMI) [Ratio] 25.9 kg/m2 Dr. Catia Christian Work Phone: [facility] Work Phone: 07-08-2021 07:59-0400 Body temperature 98.1 [degF] Dr. Catia Christian Work Phone: [facility] Work Phone: 07-08-2021 07:59-0400 Body weight 61.[address] Catia Christian Work Phone: [facility] Work Phone: 07-08-2021 07:59-0400 Diastolic blood pressure 79 mm[Hg] Dr. Catia Christian Work Phone: [facility] Work Phone: 07-08-2021 07:59-0400 Heart rate 85 /min Dr. Catia Christian Work Phone: [facility] Work Phone: 07-08-2021 07:59-0400 Respiratory rate 16 /min Dr. Catia Christian Work Phone: [facility] Work Phone: 07-08-2021 07:59-0400 SaO2% (BldA) [Mass fraction] 97 % Dr. Catia Christian Work Phone: [facility] Work Phone: 07-08-2021 07:59-0400 Systolic blood pressure 143 mm[Hg] Dr. Catia Christian Work Phone: [facility] Work Phone: 07-07-2021 08:01-0400 Body mass index (BMI) [Ratio] 25.9 kg/m2 Dr. Catia Christian Work Phone: [facility] Work Phone: 07-07-2021 08:01-0400 Body temperature 97.6 [degF] Dr. Catia Christian Work Phone: [facility] Work Phone: 07-07-2021 08:01-0400 Body weight 61.[address] Catia Christian Work Phone: [facility] Work Phone: 07-07-2021 08:01-0400 Diastolic blood pressure 94 mm[Hg] Dr. Catia Christian Work Phone: [facility] Work Phone: 07-07-2021 08:01-0400 Heart rate 95 /min Dr. Catia Christian Work Phone: [facility] Work Phone: 07-07-2021 08:01-0400 Respiratory rate 16 /min Dr. Catia Christian Work Phone: [facility] Work Phone: 07-07-2021 08:01-0400 SaO2% (BldA) [Mass fraction] 96 % Dr. Catia Christian Work Phone: [facility] Work Phone: 07-07-2021 08:01-0400 Systolic blood pressure 151 mm[Hg] Dr. Catia Christian Work Phone: [facility] Work Phone: 06-07-2021 14:34-0400 Body mass index (BMI) [Ratio] 27.1 kg/m2 Dr. Catia Christian Work Phone: [facility] Work Phone: 06-07-2021 14:34-0400 Body temperature 96.7 [degF] Dr. Catia Christian Work Phone: [facility] Work Phone: 06-07-2021 14:34-0400 Body weight 64.[address] Catia Christian Work Phone: [facility] Work Phone: 06-07-2021 14:34-0400 Diastolic blood pressure 82 mm[Hg] Dr. Catia Christian Work Phone: [facility] Work Phone: 06-07-2021 14:34-0400 Heart rate 99 /min Dr. Catia Christian Work Phone: [facility] Work Phone: 06-07-2021 14:34-0400 Respiratory rate 18 /min Dr. Catia Christian Work Phone: [facility] Work Phone: 06-07-2021 14:34-0400 SaO2% (BldA) [Mass fraction] 97 % Dr. Catia Christian Work Phone: [facility] Work Phone: 06-07-2021 14:34-0400 Systolic blood pressure 140 mm[Hg] Dr. Catia Christian Work Phone: [facility] Work Phone: 06-07-2021 14:34-0400 Body mass index (BMI) [Ratio] 27.1 kg/m2 Dr. Catia Christian Work Phone: [facility] Work Phone: 06-07-2021 14:34-0400 Body temperature 96.7 [degF] Dr. Catia Christian Work Phone: [facility] Work Phone: 06-07-2021 14:34-0400 Body weight 64.[address] Catia Christian Work Phone: [facility] Work Phone: 06-07-2021 14:34-0400 Diastolic blood pressure 82 mm[Hg] Dr. Catia Christian Work Phone: [facility] Work Phone: 06-07-2021 14:34-0400 Heart rate 99 /min Dr. Catia Christian Work Phone: [facility] Work Phone: 06-07-2021 14:34-0400 Respiratory rate 18 /min Dr. Catia Christian Work Phone: [facility] Work Phone: 06-07-2021 14:34-0400 SaO2% (BldA) [Mass fraction] 97 % Dr. Catia Christian Work Phone: [facility] Work Phone: 06-07-2021 14:34-0400 Systolic blood pressure 140 mm[Hg] Dr. Catia Christian Work Phone: [facility] Work Phone: 05-11-2021 08:30-0400 Body height 152.4 cm [facility] Work Phone: 05-11-2021 08:30-0400 Body mass index (BMI) [Ratio] 26.7 kg/m2 [facility] Work Phone: 05-11-2021 08:30-0400 Body temperature 97.5 [degF] [facility] Work Phone: 05-11-2021 08:30-0400 Body weight 62.14 kg [facility] Work Phone: 05-11-2021 08:30-0400 Diastolic blood pressure 77 mm[Hg] [facility] Work Phone: 05-11-2021 08:30-0400 Heart rate 77 /min [facility] Work Phone: 05-11-2021 08:30-0400 Respiratory rate 12 /min [facility] Work Phone: 05-11-2021 08:30-0400 SaO2% (BldA) [Mass fraction] 96 % [facility] Work Phone: 05-11-2021 08:30-0400 Systolic blood pressure 143 mm[Hg] [facility] Work Phone: 05-10-2021 08:19-0400 Body temperature 97.5 [degF] [facility] Work Phone: 05-10-2021 08:19-0400 Diastolic blood pressure 84 mm[Hg] [facility] Work Phone: 05-10-2021 08:19-0400 Heart rate 90 /min [facility] Work Phone: 05-10-2021 08:19-0400 Respiratory rate 16 /min [facility] Work Phone: 05-10-2021 08:19-0400 SaO2% (BldA) [Mass fraction] 98 % [facility] Work Phone: 05-10-2021 08:19-0400 Systolic blood pressure 161 mm[Hg] [facility] Work Phone: 03-16-2021 06:56-0500 Body mass index (BMI) [Ratio] 26.4 kg/m2 [facility] Work Phone: 03-16-2021 06:56-0500 Body temperature 97.1 [degF] [facility] Work Phone: 03-16-2021 06:56-0500 Body weight 61.23 kg [facility] Work Phone: 03-16-2021 06:56-0500 Diastolic blood pressure 86 mm[Hg] [facility] Work Phone: 03-16-2021 06:56-0500 Heart rate 86 /min [facility] Work Phone: 03-16-2021 06:56-0500 Respiratory rate 16 /min [facility] Work Phone: 03-16-2021 06:56-0500 SaO2% (BldA) [Mass fraction] 95 % [facility] Work Phone: 03-16-2021 06:56-0500 Systolic blood pressure 146 mm[Hg] [facility] Work Phone: 03-15-2021 07:24-0500 Body temperature 98.1 [degF] [facility] Work Phone: 03-15-2021 07:24-0500 Diastolic blood pressure 79 mm[Hg] [facility] Work Phone: 03-15-2021 07:24-0500 Heart rate 91 /min [facility] Work Phone: 03-15-2021 07:24-0500 Respiratory rate 16 /min [facility] Work Phone: 03-15-2021 07:24-0500 SaO2% (BldA) [Mass fraction] 99 % [facility] Work Phone: 03-15-2021 07:24-0500 Systolic blood pressure 149 mm[Hg] [facility] Work Phone: 10-10-2016 10:57-0400 BMI (Body Mass Index) 26.32 kg/m2 [facility] Work Phone: 10-10-2016 10:57-0400 Body Temperature 98 [degF] [facility] Work Phone: 10-10-2016 10:57-0400 BP Diastolic 102 mm[Hg] [facility] Work Phone: 10-10-2016 10:57-0400 BP Systolic 178 mm[Hg] [facility] Work Phone: 10-10-2016 10:57-0400 Height 153.03 cm [facility] Work Phone: 10-10-2016 10:57-0400 Pulse (Heart Rate) 83 /min [facility] Work Phone: 10-10-2016 10:57-0400 Respiratory Rate 20 /min [facility] Work Phone: 10-10-2016 10:57-0400 Weight 61.64 kg [facility] Work Phone: 12-02-2014 08:33-0400 Body Temperature 97.6 [degF] Bel Kaiser RN RN [facility] Work Phone: 12-02-2014 08:33-0400 BP Diastolic 88 mm[Hg] Bel Kaiser RN RN [facility] Work Phone: 12-02-2014 08:33-0400 BP Systolic 138 mm[Hg] Bel Kaiser RN RN [facility] Work Phone: 12-02-2014 08:33-0400 Pulse (Heart Rate) 101 /min Bel Kaiser RN RN [facility] Work Phone: 12-02-2014 08:33-0400 Respiratory Rate 16 /min Bel Kaiser RN RN [facility] Work Phone: 12-02-2014 08:33-0400 Weight 68.49 kg Bel Kaiser RN RN [facility] Work Phone: 08-24-2014 10:57-0400 BMI (Body Mass Index) 28.47 kg/m2 Bel Kaiser RN RN [facility] Work Phone: 08-24-2014 10:57-0400 BSA (Body Surface Area) 1.64 m2 Bel Kaiser RN RN [facility] Work Phone: 06-01-2014 09:11-0400 Pulse Oximetry 96 % Bel Kaiser RN RN [facility] Work Phone: 01-12-2014 13:03-0500 Height 153.03 cm Bel Kaiser RN RN [facility] Work Phone: Encounters Encounter Date Encounter Type Care Provider Facility Start: 11-21-2024 ambulatory [facility] Facility :[facility] Start: 11-19-2024 End: 11-19-2024 ambulatory [facility] Facility:[facility] Start: 09-26-2024 End: 09-26-2024 Patient encounter procedure [...] Dr. Catia Christian DO Work Phone: -[facility] [place] Start: 09-08-2024 End: 09-08-[address] Catia Christian DO -[facility] [place] Work Phone: Start: 09-08-2024 End: 09-08-2024 ambulatory Catia Christian Facility:[facility] Start: 08-01-2024 End: 08-01-[address] Natalie Rodriguez MD -[facility] Out Work Phone: Start: 08-01-2024 End: 08-01-[address] Catia Christian DO Work Phone: -[facility] Start: 07-30-2024 End: 07-30-[address] Natalie Rodriguez MD -[facility] Work Phone: Start: 07-30-2024 End: 07-30-[address] Catia Christian DO Work Phone: [facility] Work Phone: Start: 06-12-2024 End: 06-12-[address] Catia Christian DO Work Phone: [facility] Work Phone: Start: 06-12-2024 End: 06-12-[address] [facility] Start: 06-12-2024 End: 06-12-2024 ambulatory [facility] Facility:[facility] Start: 06-04-2024 End: 06-04-[address] Natalie Rodriguez MD -[facility] Out Work Phone: Start: 06-04-2024 End: 06-04-2024 ambulatory [facility] Facility:[facility] Start: 06-02-2024 End: 06-02-[address] Natalie Rodriguez MD -[facility] Work Phone: Start: 06-02-2024 End: 06-02-2024 ambulatory [facility] [place] Facility:[facility] Start: 04-22-2024 End: 04-22-[address] Catia Christian DO Work Phone: [facility] Work Phone: Start: 04-22-2024 End: 04-22-[address] Catia Christian DO -Laboratory, [place] Work Phone: Start: 04-22-2024 End: 04-22-2024 ambulatory Catia Christian Facility:[facility] Start: 04-11-2024 End: 04-11-[address] Catia Christian DO -[facility] Work Phone: Start: 04-11-2024 End: 04-11-[address] Catia Christian DO Work Phone: [facility] Work Phone: Start: 04-09-2024 End: 04-09-[address] Natalie Rodriguez MD -[facility] Work Phone: Start: 04-09-2024 End: 04-09-2024 ambulatory [facility] Facility:[facility] Start: 02-15-2024 End: 02-15-[address] Natalie Rodriguez MD -[facility] Work Phone: Start: 02-15-2024 End: 02-15-2024 ambulatory [facility] Facility:[facility] Start: 02-13-2024 End: 02-13-[address] Natalie Rodriguez MD -[facility] Out Work Phone: Start: 02-13-2024 End: 02-13-2024 ambulatory [facility] Facility:[facility] Start: 01-22-2024 End: 01-22-[address] Natalie Rodriguez MD -Laboratory, [place] Work Phone: Start: 01-22-2024 End: 01-22-2024 ambulatory [facility] Facility:[facility] Start: 12-13-2023 End: 12-13-2023 ambulatory [facility] Facility:[facility] Start: 12-12-2023 End: 12-12-2023 ambulatory [facility] Facility:[facility] Start: 05-16-2023 End: 05-16-2023 ambulatory [facility] Work Phone: Start: 05-16-2023 End: 05-16-2023 Patient encounter procedure [facility] Work Phone: Start: 05-10-2023 End: 05-10-2023 ambulatory [facility] Work Phone: Start: 05-10-2023 End: 05-10-2023 Patient encounter procedure [facility] Work Phone: Start: 05-09-2023 End: 05-09-2023 ambulatory [facility] Work Phone: Start: 05-09-2023 End: 05-09-2023 Patient encounter procedure [facility] Work Phone: Start: 04-06-2023 End: 04-06-2023 Emergency department patient visit [facility] Work Phone: Start: 03-23-2023 End: 03-23-2023 ambulatory [facility] Work Phone: Start: 03-23-2023 End: 03-23-2023 Patient encounter procedure [facility] Work Phone: Start: 03-09-2023 End: 03-09-2023 Patient encounter procedure [facility] Work Phone: Start: 03-08-2023 End: 03-08-2023 Patient encounter procedure [facility] Work Phone: Start: 01-17-2023 End: 01-17-2023 ambulatory [facility] Work Phone: Start: 01-17-2023 End: 01-17-2023 Discharged Recurring [facility]-Physical Therapy Work Phone: Start: 01-15-2023 End: 01-15-2023 ambulatory [facility] Work Phone: Start: 01-15-2023 End: 01-15-2023 Patient encounter procedure [facility] Work Phone: Start: 01-11-2023 End: 01-11-2023 ambulatory [facility] Work Phone: Start: 01-11-2023 End: 01-11-2023 Patient encounter procedure [facility] Work Phone: Start: 01-04-2023 Registered Recurring [facility] Work Phone: Start: 11-30-2022 Registered Recurring [facility] Work Phone: Start: 11-24-2022 End: 11-24-2022 ambulatory [facility] Work Phone: Start: 11-24-2022 End: 11-24-2022 Patient encounter procedure [facility] Work Phone: Start: 11-09-2022 End: 11-09-2022 Patient encounter procedure [facility] Work Phone: Start: 11-08-2022 End: 11-08-2022 ambulatory [facility] Work Phone: Start: 11-08-2022 End: 11-08-2022 Patient encounter procedure [facility] Work Phone: Start: 10-19-2022 Registered Recurring [facility] Work Phone: Start: 09-22-2022 End: 09-22-2022 Patient encounter procedure [facility] Work Phone: Start: 09-07-2022 End: 09-07-[address] Catia Christian Work Phone: [facility] Work Phone: Start: 09-07-2022 End: 09-07-[address] Catia Christian Work Phone: [facility] Work Phone: Start: 09-06-2022 End: 09-06-[address] Catia Christian Work Phone: [facility] Work Phone: Start: 09-06-2022 End: 09-06-[address] Catia Christian Work Phone: [facility] Work Phone: Start: 08-30-[address] Catia Christian Work Phone: [facility]-Physical Therapy Work Phone: Start: 08-14-2022 End: 08-14-[address] Catia Christian Work Phone: [facility] Work Phone: Start: 08-14-2022 End: 08-14-[address] Catia Crhistian Work Phone: [facility] Work Phone: Start: 07-13-2022 End: 07-13-[address] Catia Christian Work Phone: [facility] Work Phone: Start: 07-12-2022 End: 07-12-[address] Catia Christian Work Phone: [facility] Work Phone: Start: 07-12-2022 End: 07-12-[address] Catia Christian Work Phone: [facility] Start: 05-29-2022 End: 05-29-[address] Catia Christian Work Phone: [facility] Work Phone: Start: 05-29-2022 End: 05-29-[address] Catia Christian Work Phone: [facility]-Laboratory, Phy Office 3rd Flr Start: 05-25-2022 End: 05-25-[address] Catia Christian Work Phone: [facility] Start: 05-18-2022 End: 05-18-[address] Catia Christian Work Phone: [facility] Work Phone: Start: 05-18-2022 End: 05-18-[address] Catia Christian Work Phone: [facility] Start: 05-17-2022 End: 05-17-[address] [facility] Start: 05-02-2022 Non-patient / Non-visit Dr. Rosalee Christian Work Phone: [facility] Start: 05-02-2022 End: 05-02-[address] Catia Christian Work Phone: [facility] Work Phone: Start: 05-02-2022 End: 05-02-[address] Catia Christian Work Phone: [facility]Cardiovascular Services Start: 04-12-2022 End: 04-12-[address] Catia Christian Work Phone: [facility] Work Phone: Start: 04-12-2022 End: 04-12-[address] [facility] Start: 03-24-2022 End: 03-24-[address] Catia Christian Work Phone: [facility] Work Phone: Start: 03-24-2022 End: 03-24-[address] Catia Christian Work Phone: [facility] Start: 03-23-2022 End: 03-23-[address] Catia Christian Work Phone: [facility] Work Phone: Start: 03-23-2022 End: 03-23-[address] Catia Christian Work Phone: [facility] Start: 02-20-2022 End: 02-20-[address] Catia Christian Work Phone: [facility] Work Phone: Start: 02-20-2022 End: 02-20-[address] Catia Christian Work Phone: [facility] Start: 01-13-2022 End: 01-13-[address] Catia Christian Work Phone: [facility] Work Phone: Start: 01-13-2022 End: 01-13-[address] Catia Christian Work Phone: [facility]Cardi[facility] Services Start: 01-03-2022 End: 01-30-2022 Evaluation and management of inpatient Dr. Catia Christian Work Phone: [facility]-Transitional Care Unit Start: 01-03-2022 Non-patient / Non-visit Dr. Rosalee Christian Work Phone: [facility] Inpatient Phys[facility] Start: 01-02-2022 End: 01-03-2022 Evaluation and management of inpatient [facility]. Catia [facility] Start: 01-02-2022 Non-patient / Non-visit Dr. Rosalee Christian Work Phone: [facility] Start: 01-02-2022 Non-patient / Non-visit Dr. Rosalee Christian Work Phone: [facility] Start: 01-02-2022 End: 01-03-2022 Evaluation and management of inpatient [facility] Start: 01-02-2022 observation encounter [facility] Work Phone: Start: 12-27-2021 End: 12-27-2021 ambulatory [facility] Work Phone: Start: 12-27-2021 End: 12-27-2021 Patient encounter procedure [facility] Start: 11-14-2021 End: 11-14-2021 ambulatory [facility] Work Phone: Start: 11-14-2021 End: 11-14-2021 Patient encounter procedure [facility]-Outpatient Breast Imaging Start: 11-03-2021 End: 11-03-2021 ambulatory [facility] Work Phone: Start: 11-03-2021 End: 11-03-2021 Patient encounter procedure [facility] Start: 11-02-2021 End: 11-02-2021 ambulatory [facility] Work Phone: Start: 11-02-2021 End: 11-02-2021 Patient encounter procedure [facility] Start: 10-21-2021 End: 10-21-2021 ambulatory [facility] Work Phone: Start: 10-21-2021 End: 10-21-2021 Patient encounter procedure [facility] Start: 09-08-2021 End: 09-08-[address] Catia Christian Work Phone: [facility] Start: 09-07-2021 End: 09-07-[address] Catia Christian Work Phone: [facility] Start: 07-12-2021 End: 07-12-[address] Catia Christian Work Phone: [facility] Start: 07-08-2021 End: 07-08-[address] [facility] Start: 07-07-2021 End: 07-07-[address] [facility] Start: 06-24-2021 End: 06-24-2021 Patient encounter procedure Dr. Catia Christian Work Phone: [facility] Start: 06-07-2021 End: 06-07-[address] Catia Christian Work Phone: [facility] Start: 05-11-2021 End: 05-11-2021 Patient encounter procedure [facility] Start: 05-10-2021 End: 05-10-2021 Patient encounter procedure [facility] Start: 04-11-2021 End: 04-11-[address] [facility] Start: 03-16-2021 End: 03-16-2021 [facility] Start: 03-15-2021 End: 03-15-2021 [facility] Start: 03-08-[address] [facility] Start: 06-25-2014 End: 08-03-2016 Encounter for general adult medical examination without abnormal findings Bel Kaiser RN RN [facility] Work Phone: Procedures Date Procedure [...] therapy prophylaxis/dx ea hour THER/PROPH/DIAG IV INF [facility] Start: 08-01-2024 Iv infusion therapy/prophylaxis /dx 1st to 1 hr THER/PROPH/DIAG IV INF [facility] Start: 06-02-2024 Iv infusion therapy prophylaxis/dx ea hour THER/PROPH/DIAG IV INF [facility] Start: 06-02-2024 Iv infusion therapy/prophylaxis /dx 1st to 1 hr THER/PROPH/DIAG IV INF [facility] Start: 04-09-2024 Iv infusion therapy prophylaxis/dx ea hour THER/PROPH/DIAG IV INF [facility] Start: 04-09-2024 Iv infusion therapy/prophylaxis /dx 1st to 1 hr THER/PROPH/DIAG IV INF [facility] Start: 02-13-2024 Iv infusion therapy prophylaxis/dx ea hour THER/PROPH/DIAG IV INF [facility] Start: 02-13-2024 Iv infusion therapy/prophylaxis /dx 1st to 1 hr THER/PROPH/DIAG IV INF [facility] Start: 05-09-2023 Iv infusion therapy prophylaxis/dx ea hour THER/PROPH/DIAG IV INF [facility] Start: 05-09-2023 Iv infusion therapy/prophylaxis /dx 1st to 1 hr THER/PROPH/DIAG IV INF [facility] Start: 04-06-2023 [facility] Start: 11-08-2022 Iv infusion therapy prophylaxis/dx ea hour THER/PROPH/DIAG IV INF [facility] Start: 11-08-2022 Iv infusion therapy/prophylaxis /dx 1st to 1 hr THER/PROPH/DIAG IV INF [facility] Start: 09-07-2022 Iv infusion therapy prophylaxis/dx ea hour THER/PROPH/DIAG IV INF [facility] Start: 09-07-2022 Iv infusion therapy/prophylaxis /dx 1st to 1 hr THER/PROPH/DIAG IV INF [facility] Start: 07-13-2022 Iv infusion therapy prophylaxis/dx ea hour THER/PROPH/DIAG IV INF [facility] Start: 07-13-2022 Iv infusion therapy/prophylaxis /dx 1st to 1 hr THER/PROPH/DIAG IV INF [facility] Start: 05-18-2022 Iv infusion therapy prophylaxis/dx ea hour THER/PROPH/DIAG IV INF [facility] Start: 05-18-2022 Iv infusion therapy/prophylaxis /dx 1st to 1 hr THER/PROPH/DIAG IV INF [facility] Start: 03-24-2022 Iv infusion therapy prophylaxis/dx ea hour THER/PROPH/DIAG IV INF [facility] Start: 03-24-2022 Iv infusion therapy/prophylaxis /dx 1st to 1 hr THER/PROPH/DIAG IV INF [facility] Start: 02-01-2022 Blood chemistry [facility] Work Phone: Start: 01-31-2022 Development of care plan [facility] Start: 01-30-2022 Patient discharge [facility] Start: 01-25-2022 Blood chemistry [facility] Work Phone: Start: 01-18-2022 Enteric precautions [facility] Work Phone: Start: 01-13-2022 Application of elastic bandage [facility] Start: 01-06-2022 [facility] Start: 01-04-2022 Development of care plan [facility] Start: 01-04-2022 Speech therapy management [facility] Start: 01-04-2022 Developing a treatment plan [facility] Start: 01-04-2022 Verification routine [facility] Work Phone: Start: 01-04-2022 [facility] Start: 01-03-2022 Following clinical pathway protocol [facility] Start: 01-03-2022 Speech therapy assessment [facility] Start: 01-03-2022 Admission procedure [facility] Start: 01-03-2022 Measuring intake and output [facility] Start: 01-03-2022 Patient referral to dietitian [facility] Start: 01-03-2022 Referral to occupational therapist [facility] Start: 01-03-2022 Referral to service [facility] Start: 01-03-2022 Vital signs measurements [facility] Start: 01-03-2022 [facility] Start: 01-03-2022 Patient discharge [facility] Start: 01-03-2022 Patient referral to dietitian [facility] Start: 01-02-2022 Admission procedure [facility] Start: 01-02-2022 Speech therapy assessment [facility] Start: 01-02-2022 Assessment of risk of venous thromboembolism [facility] Start: 01-02-2022 Cardiac monitoring [facility] Start: 01-02-2022 Catheterization of vein [facility] Start: 01-02-2022 Elevation of head of bed [facility] Start: 01-02-2022 Exercises [facility] Start: 01-02-2022 Implementation of planned interventions [facility] Start: 01-02-2022 Insertion of catheter into peripheral vein [facility] Start: 01-02-2022 Measuring intake and output [facility] Start: 01-02-2022 Notification of physician [facility] Start: 01-02-2022 Oxygen therapy [facility] Start: 01-02-2022 Providing care according to standard [facility] Start: 01-02-2022 Provision of activity privileges [facility] Start: 01-02-2022 Referral to occupational therapist [facility] Start: 01-02-2022 Referral to service [facility] Start: 01-02-2022 Tobacco use cessation education [facility] Start: 01-02-2022 [facility] Start: 01-02-2022 Following clinical pathway protocol [facility] Start: 01-02-2022 Verification routine [facility] Work Phone: Start: 01-02-2022 Admission procedure [facility] Start: 01-02-2022 Oxygen therapy [facility] Work Phone: Start: 01-02-2022 [facility] Work Phone: Start: 12-27-2021 Iv infusion therapy prophylaxis/dx ea hour THER/PROPH/DIAG IV INF [facility] Start: 12-27-2021 Iv infusion therapy/prophylaxis /dx 1st to 1 hr THER/PROPH/DIAG IV INF [facility] Start: 11-03-2021 Iv infusion therapy prophylaxis/dx ea hour THER/PROPH/DIAG IV INF [facility] Work Phone: Start: 11-03-2021 Iv infusion therapy/prophylaxis /dx 1st to 1 hr THER/PROPH/DIAG IV INF [facility] Work Phone: Start: 11-02-2021 Iv infusion therapy prophylaxis/dx ea hour THER/PROPH/DIAG IV INF [facility] Work Phone: Start: 11-02-2021 Iv infusion therapy/prophylaxis /dx 1st to 1 hr THER/PROPH/DIAG IV INF [facility] Work Phone: Start: 09-07-2021 Iv infusion therapy prophylaxis/dx ea hour THER/PROPH/DIAG IV INF [facility] Work Phone: Start: 09-07-2021 Iv infusion therapy/prophylaxis /dx 1st to 1 hr THER/PROPH/DIAG IV INF [facility] Work Phone: Start: 07-08-2021 Iv infusion therapy prophylaxis/dx ea hour THER/PROPH/DIAG IV INF [facility] Work Phone: Start: 07-08-2021 Iv infusion therapy/prophylaxis /dx 1st to 1 hr THER/PROPH/DIAG IV INF [facility] Work Phone: Start: 07-07-2021 Iv infusion therapy prophylaxis/dx ea hour THER/PROPH/DIAG IV INF [facility] Work Phone: Start: 07-07-2021 Iv infusion therapy/prophylaxis /dx 1st to 1 hr THER/PROPH/DIAG IV INF [facility] Work Phone: Start: 05-11-2021 Iv infusion therapy prophylaxis/dx ea hour THER/PROPH/DIAG IV INF [facility] Work Phone: Start: 05-11-2021 Iv infusion therapy/prophylaxis /dx 1st to 1 hr THER/PROPH/DIAG IV INF [facility] Work Phone: Start: 05-10-2021 Iv infusion therapy prophylaxis/dx ea hour THER/PROPH/DIAG IV INF [facility] Work Phone: Start: 05-10-2021 Iv infusion therapy/prophylaxis /dx 1st to 1 hr THER/PROPH/DIAG IV INF [facility] Work Phone: Start: 10-18-2016 End: 10-18-2016 Appointment [facility] Work Phone: Start: 10-10-2016 End: 10-17-2016 Bx breast 1st Lesion strtctc Stereotactic localization guidance for breast biopsy [facility] Work Phone: Start: 10-10-2016 End: 10-10-2016 Mammogram, one breast Mammogram, Diagnositic Unilateral [facility] Work Phone: Start: 10-10-2016 End: 10-10-2016 Us exam, breast(s) US Breast(s) [facility] Work Phone: Start: 08-22-2016 End: 08-22-2016 Appointment Appointment [facility] Work Phone: Start: 04-14-2015 End: 04-14-2015 Mammogram, screening Mammogram, Screening, both breasts [facility] Work Phone: Start: 08-24-2014 End: 12-01-2014 Lipid panel [AGGREGATE] *Lipid Profile [facility] Work Phone: Start: 05-04-2014 End: 07-14-2014 *CBC with Differential *CBC with Differential [facility] Work Phone: Start: 05-04-2014 End: 07-10-2014 *CMP Complete Metabolic Panel *CMP Complete Metabolic Panel [facility] Work Phone: Start: 05-04-2014 End: 07-14-2014 Follow Up Appt 3 months Follow Up Appt 3 months [facility] Work Phone: Start: 03-05-2014 End: 04-02-2014 *PAPIG6 Cytopath, Cerv/Vag, Fluid Auto Redo *PAPIG6 Cytopath, Cerv/Vag, Fluid Auto Redo [facility] Work Phone: Start: 02-17-2014 End: 07-14-2014 Mammogram, Screening, both breasts Mammogram, Screening, both breasts [facility] Work Phone: Start: 01-12-2014 End: 01-15-2014 Lipid panel [AGGREGATE] *Lipid Profile [facility] [employer] Work Phone: Anion gap measurement [facility] Work Phone: BUN/Creatinine ratio [facility] Work Phone: Calcium [Mass/volume ] in Serum or Plasma [facility] Work Phone: Carbon dioxide, tota l [Moles/volume] in Serum or Plasma [facility] Work Phone: Chloride [Moles/volu me] in Serum or Plasma [facility] Work Phone: Creatinine [Moles/vo lume] in Serum or Plasma [facility] Work Phone: Glucose [Mass/volume ] in Serum or Plasma [facility] Work Phone: Hematocrit [Volume Fraction] of Blood [facility] Work Phone: Hemoglobin [Mass/vol ume] in Blood [facility] Work Phone: Leukocytes [#/volume ] in Blood [facility] Work Phone: Mean corpuscular hemoglobin concentration determination [facility] Work Phone: Mean corpuscular hemoglobin determination [facility] Work Phone: Measurement of renal function [facility] Work Phone: Neutrophil count [facility] Work Phone: Neutrophil percent differential count [facility] Work Phone: Patient Education ED Rib Fracture [facility] Work Phone: Patient referral [facility] Work Phone: Platelets [#/volume] in Blood [facility] Work Phone: Potassium [Moles/vol ume] in Serum or Plasma [facility] Work Phone: Red blood cell count [facility] Work Phone: Red cell distributio n width determination [facility] Work Phone: Sodium [Moles/volume ] in Serum or Plasma [facility] Work Phone: Urea nitrogen [Mass/volume] in Serum or Plasma [facility] Work Phone: Immunizations Immunization Date Immunization Notes Care Provider [facility] 01-05-2022 Pneumococcal Vaccine PCV20 (Prevnar 20) Dr. Catia Christian Work Phone: [facility] 07-20-2021 Covid (Moderna) Dr. Catia ye Work Phone: [facility] 01-07-2021 Covid (Moderna) Dr. Catia ye Work Phone: [facility] 03-25-2020 Covnh (Moderna) [facility] 02-26-2020 Covid (Moderna) [facility] 11-23-2014 pneumococcal conjuga te vaccine, [address] Catia Christian Work Phone: [facility] Payers Date Payer Category Payer Private Health Insurance [id number] 2023 Self-pay [id number] 2016 [facility] [id number] Medicare [id number] Unknown [id number] 2.16.8 [id number] Unknown [id number] 2.16.8 [id number] Unknown [id number] 2.16.8 [id number] Unknown [id number] 2.16.8 [id number] Unknown [id number] 2.16.8 [id number] Unknown [id number] 2.16.8 [id number] Unknown [id number] 2.16.8 [id number] Unknown [id number] 2.16.8 [id number] Unknown [id number] 2.16.8 [id number] Unknown [id number] 2.16.8 [id number] Unknown [id number] 2.16.8 [id number] Unknown [id number] 2.16.8 [id number] Unknown [id number] 2.16.8 [id number] Unknown [id number] 2.16.8 [id number] Unknown [id number] 2.16.8 [id number] Unknown [id number] 2.16.8 [id number] Unknown [id number] 2.16.8 [id number] Unknown [id number] 2.16.8 [id number] Unknown [id number] 2.16.8 [id number] Social History Date Type Detail Facility Start: 03-12-2019 End: 04-06-2023 Tobacco smoking status NHIS Unknown if ever smoked [facility] Start: 06-14-2020 None [facility] Start: 06-14-2020 Alone [facility] Start: 06-14-2020 Non-smoker [facility] Start: 1935 Sex Assigned At Female W [facility] Start: 04-06-2023 End: 04-06-2023 Tobacco smoking status NHIS Never smoked tobacco (finding) [facility] Start: 04-12-2024 End: 04-30-2024 Sex Female (finding) [facility] Goals Date Patient Goal Desired Activity /State Functional Status Date Assessment Result Facility 01-30-2022 Functional status Ambulates [facility] Work Phone: 01-28-2022 Functional status Tolerates Activity Fair [facility] Work Phone: 01-19-2022 Functional status Chair [facility] Work Phone: 01-03-2022 Functional status Chair [facility] Work Phone: Mental Status Date Assessment Result Facility 09-24-2024 Cognitive function Awake;Alert;A ppropriate;Follow s Commands [facility] Work Phone: 08-01-2024 Cognitive function Awake;Alert;A ppropriate;Follow s Commands [facility] Work Phone: 07-30-2024 Cognitive function Awake;Alert;A ppropriate;Follow s Commands [facility] Work Phone: 06-04-2024 Cognitive function Awake;Alert;A ppropriate;Follow s Commands [facility] Work Phone: 06-02-2024 Cognitive function Voice/Name [facility] Work Phone: 04-11-2024 Cognitive function [facility] Work Phone: 04-09-2024 Cognitive function Voice/Name [facility] Work Phone: 02-15-2024 Cognitive function Voice/Name [facility] Work Phone: 02-13-2024 Cognitive function Awake;Alert;A ppropriate;Follow s Commands [facility] Work Phone: 05-10-2023 Cognitive function Awake;Alert;A ppropriate;Follow s Commands [facility] Work Phone: 05-09-2023 Cognitive function Voice/Name [facility] Work Phone: 03-23-2023 [facility] Work Phone: 03-09-2023 Cognitive function Voice/Name [facility] Work Phone: 03-08-2023 Cognitive function Awake;Alert;A ppropriate;Follow s Commands [facility] Work Phone: 01-15-2023 Cognitive function Voice/Name [facility] Work Phone: 01-11-2023 Cognitive function Awake;Alert;Appropriat e [facility] Work Phone: 11-09-2022 Cognitive function Awake;Alert;Appropriat e [facility] Work Phone: 11-08-2022 Cognitive function Voice/Name [facility] Work Phone: 09-22-2022 Cognitive function Voice/Name [facility] Work Phone: 09-07-2022 Cognitive function Voice/Name [facility] Work Phone: 09-06-2022 Cognitive function Voice/Name [facility] Work Phone: 07-13-2022 Cognitive function Voice/Name [facility] Work Phone: 07-12-2022 Cognitive function Voice/Name [facility] Work Phone: 05-18-2022 Cognitive function Voice/Name [facility] Work Phone: 05-17-2022 Cognitive function Voice/Name [facility] Work Phone: 03-24-2022 Cognitive function Voice/Name [facility] Work Phone: 03-23-2022 Cognitive function Voice/Name [facility] Work Phone: 01-30-2022 Cognitive function Voice/Name [facility] Work Phone: 01-29-2022 Cognitive function Comprehension Ability Demonstrates ability to follow instructions/comprehend [facility] Work Phone: 01-19-2022 Cognitive function Voice/Name [facility] Work Phone: 01-03-2022 Cognitive function Voice/Name [facility] Work Phone: 01-02-2022 Cognitive function Voice/Name [facility] Work Phone: 12-27-2021 Cognitive function Level Of Cons ciousness Awake;Alert;Appropriate;Follow s Commands [facility] Work Phone: 11-03-2021 Cognitive function Voice/Name [facility] Work Phone: 11-02-2021 Cognitive function Voice/Name [facility] Work Phone: 09-08-2021 Cognitive function Voice/Name [facility] Work Phone: 09-07-2021 Cognitive function Level Of Cons ciousness Awake;Alert;Appropriate;Follow s Commands [facility] Work Phone: 07-12-2021 Cognitive function Voice/Name [facility] Work Phone: 07-08-2021 Cognitive function Voice/Name [facility] Work Phone: 07-07-2021 Cognitive function Voice/Name [facility] Work Phone: 05-11-2021 Cognitive function Voice/Name [facility] Work Phone: 05-10-2021 Cognitive function Level Of Cons ciousness Awake;Alert;Appropriate;Follow s Commands [facility] Work Phone: 03-16-2021 Cognitive function Voice/Name [facility] Work Phone: 03-15-2021 Cognitive function Awake;Alert;A ppropriate;Follow s Commands [facility] Work Phone: Clinical Notes 05-02-2022 to 04-06-2023 Note Date & Type Note Facility 04-06-2023 Hospital Discharg e instructions Additional Instructions You have a fracture of your left seventh rib. Take Tylenol and use the Lidoderm patches. They also sell oanj-qez-ogbqxge lidocaine patches called Salonpas. Use the Tylenol threes for breakthrough pain. Follow-up with your primary care doctor. Rib fractures can take 6 to 8 weeks to heal. [facility] Work Phone: 11-30-2022 Discharge summary Note Date/Time November 30, 2022 1:14pm [facility] [address] [place] [address] [address] [place] [address] / REHABILITATION SERVICES DISCHARGE SUMMARY MR#: [id number] Acct: [id number] Name: DARIAN BANSAL Rep #: [id number] : 1935 87 From: Cert. MELANY Posadas, OCS Referring DrWayne: Dr. Catia Christian DO Status: REG RCR [facility] Discharge Summary D/C summary: [...] please feel free to call me at [phone]. Thank you for the referral of thispatient. Sincerely, Onesimo Boyd, PT, Cert MDT, OCS Balance/Gait/Functional tests Balance/Special Test Scores CATSIB Score (Max score 120 seconds): 70 Lower Extremity Functional Score: 21 TUG Test Time Seconds: 25.41 Tug Test: 20-30sec.=variable mobility 30 Second Chair Rise Test Seconds: 13 Improvement % Improvement: 50 <Electronically signed by Onesimo Boyd PT, Cert. T, OCS> 11/30/22 9999 CC: Dr. Catia Christian, DO ~ GENE Signed [facility] Work Phone: 1(366) 315-489703-28-2023 Procedure [facility] Evaluation noteNo assessment information [facility] note* Diagnosis Onset Date Resolution Status Osteoporosis acute Hypothyroidism chronic [facility] Work Phone: Evaluation note* Diagnosis Onset Date Resolution Status Stroke acute Benign hypertension chronic [facility] Work Phone: Evaluation note* Diagnosis Onset Date Resolution Status Stroke acute Stroke-like symptoms acute Benign hypertension chronic [facility] Work Phone: Evaluation note* Diagnosis Onset Date Resolution Status Benign hypertension chronic Stroke resolved Debility acute GERD (gastroesophageal reflux disease) acute Hyperlipidemia acute Hyperparathyroidism acute Hypokalemia acute Hypothyroidism acute 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 Vitamin D deficiency acute Hypertension chronic Stroke resolved [facility] Work Phone: Evaluation note* Diagnosis Onset Date Resolution Status Benign hypertension chronic Stroke resolved Debility acute GERD (gastroesophageal reflux disease) acute Hyperlipidemia acute Hypothyroidism acute 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 Vitamin D deficiency acute Hypertension chronic Hyperparathyroidism resolved Hypokalemia resolved Stroke resolved [facility] Work Phone: Evaluation note* Diagnosis Onset Date Resolution Status Debility acute GERD (gastroesophageal reflux disease) acute Hyperlipidemia acute Hypothyroidism acute 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 Vitamin D deficiency acute Hypertension chronic Hyperparathyroidism resolved Hypokalemia resolved Stroke resolved [facility] Work Phone: Evaluation note* Diagnosis Onset Date Resolution Status Hypothyroidism acute Osteoporosis acute [facility] Work Phone: Reason for referral (narrative)No reason for referral [facility]: Chief Complaint and Reason for Visit Chief Complaint IVIG IVIG IVIG IVIG Chief Complaint IVIG IVIG IVIG IVIG 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, 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, 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 PCP IVIG IVIG PROLIA Reason for Visit Osteoporosis Hypothyroidism Chief Complaint IVIG IVIG 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, 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, 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 PCP IVIG IVIG PROLIA Reason for Visit Osteoporosis Hypothyroidism Chief Complaint 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, 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, 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- [...] ACUTE CVA ACUTE CVA PVD RIGHT 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 Reason for Visit Benign hypertension Stroke Debility GERD (gastroesophageal reflux disease) Hyperlipidemia Hypothyroidism Stenosis of right internal carotid artery Vitamin D deficiency Hypertension Hyperparathyroidism Hypokalemia Stroke Chief Complaint IVIG ACUTE CVA ACUTE CVA ACUTE CVA ACUTE CVA PVD RIGHT 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 IVIG IVIG Reason for Visit Benign hypertension Stroke Debility GERD (gastroesophageal reflux disease) Hyperlipidemia Hypothyroidism Stenosis of right internal carotid artery Vitamin D deficiency Hypertension Hyperparathyroidism Hypokalemia Stroke Chief Complaint ACUTE CVA PVD RIGHT 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 IVIG IVIG SHORTNESS OF BREATH SHORTNESS OF BREATH Reason for Visit Debility GERD (gastroesophageal reflux disease) Hyperlipidemia Hypothyroidism Stenosis of right internal carotid artery Vitamin D deficiency Hypertension Hyperparathyroidism Hypokalemia Stroke Chief Complaint ACUTE CVA 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 IVIG IVIG SHORTNESS OF BREATH SHORTNESS OF BREATH IVIG IVIG Reason for Visit Debility GERD (gastroesophageal reflux disease) Hyperlipidemia Hypothyroidism Stenosis of right internal carotid artery Vitamin D deficiency Hypertension Hyperparathyroidism Hypokalemia Stroke Chief Complaint DETENTION LAB WOR K IVIG IVIG SHORTNESS OF [...] Will No March 12 12:22pm Power of Employment Consultant No March 12, 2019 12:22pm Advance Directive Response Recorded Date/ Time Advance Directives Yes March 10, 2016 7:56am Living Will No March 12 11:22am Power of Employment Consultant No March 12, 2019 11:22am Advance Directive Response Recorded Date/ Time Advance Directives Yes March 10, 2016 7:56am Living Will Yes January 02, 022 2:59am Power of Employment Consultant No January 02, 2022 2:59am Advance Directive Response Recorded Date/ Time Advance Directives Yes March 10, 2016 7:56am Living Will Yes January 02, 022 5:08am Power of Employment Consultant No January 02, 2022 5:08am Advance Directive Response Recorded Date/ Time Name of Medical Power of Employment Consultant Ibrahima Bansal, frederic January 05, 2022 11:44am Advance Directives Yes March 10, 2016 7:56am Living Will Yes January 05 11:44am Power of Employment Consultant Yes January 05, 2022 11:44am Advance Directive Response Recorded Date/ Time Name of Medical Power of Employment Consultant Ibrahima Bansal, frederic January 05, 2022 12:44pm Advance Directives Yes March 10, 2016 8:56am Living Will Yes January 05 12:44pm Power of Employment Consultant Yes January 05, 2022 12:44pm Advance Directive Response Recorded Date/ Time Advance Directives Yes March 10, 2016 8:56am Living Will Yes January 05 12:44pm Power of Employment Consultant Yes January 05, 2022 12:44pm Advance Directive Response Recorded Date/ Time Advance Directives Yes March 10, 2016 7:56am Living Will Yes January 05 11:44am Power of Employment Consultant Yes January 05, 2022 11:44am Advance Directive Response Recorded Date/ Time Name of Medical Power of Employment Consultant IBRAHIMA BANSAL April 06, 2023 4:14pm Advance Directives Yes March 10, 2016 7:56am Living Will Yes April 06, 2023 4:14pm Power of Employment Consultant Yes April 05 4:14pm Advance Directive Response Recorded Date/ Time Name of Medical Power of Employment Consultant IBRAHIMA BANSAL April 06, 2023 5:14pm Advance Directives Yes March 10, 2016 8:56am Living Will Yes April 06, 2023 5:14pm Power of Employment Consultant Yes April 05 5:14pm Advance Directive Response Recorded Date/ Time Living Will Yes April 06, 2023 4:14pm Power of Employment Consultant Yes April 05 4:14pm Advance Directives Yes March 10, 2016 7:56am Advance Directive Response Recorded Date/ Time Living Will Yes April 06, 2023 5:14pm Do you have a Healthcare Power of Employment Consultant? Yes April 06, 2023 5:14pm Advance Directives [...] DATE CREATED AUTHOR AUTHOR'S ORGANIZ ATION 11/20/2024 [facility] Care Teams (unrecognized sec tion and [...] Status: Active Member Role Status Dates Dr. Caita Christian DO Primary Care Provide r, Attending [...] 2024 End: June 02, 2024 Dr. Natalie Rodirguez MD Referring Provider Active Start: June 02, [...] THE PRIMARY CLINICAL RECORDS. [facility] [employer] provides no warranty or guarantee of the accuracy or completeness of information in this document.
[2024-11-21] MEDS: Immune Globulin 10 gm 10 GM/100 ML VIAL IV (10:04)
[2024-11-21] MEDS: Immune Globulin 5 GM 5 GM/50 ML VIAL IV (10:41)
== END 2024-11-21 23:59 | disposition home or self-care (01) ==
LOC: MEDOUTP 07:56
PROVIDERS: PCP Family Medicine; Referring Provider Internal Medicine Rheumatology; Visit Provider Internal Medicine Rheumatology
DX: M33.92 Dermatopolymyositis, unspecified with myopathy (principal)
CPT/HCPCS: 96365; 96366; J1568

== ENCOUNTER → 2024-12-17 | Outpatient (CLI) | payer MEDICARE, SELFPAY ==
[2024-12-17 12:20] LABS: Hematocrit 43.7 % (37-47); Hemoglobin 15.2 g/dL (12.0-15.0); Immature Granulocytes Count 0.040 X10^3/uL (0.0-0.0); Mean Corp Hgb Conc 34.8 g/dL (32-36); Mean Corpuscular Volume 90.5 fL (81-99); Mean Platelet Vol. 9.8 fl (6.2-12.0); NRBC Flagged by Analyzer 0 % (0-5); Platelet Count 282 K/mm3 (150-450); RBC Distribution Width CV 13.7 % (11.6-14.6); RBC Distribution Width SD 45.1 fl (35.1-43.9); Red Blood Count 4.83 M/mm3 (4.2-5.4); White Blood Count 6.8 K/mm3 (4.4-11.0)
[2024-12-17 13:08] LABS: AST(SGOT) 24 U/L (<=31); Alanine Aminotransfer ALT/SGPT 19 U/L (<=34); Albumin, Serum 4.3 g/dL (3.4-4.8); Alkaline Phosphatase 103 U/L (35-104); Anion Gap 13 (5-15); BUN 11 mg/dL (4-19); BUN/Creat Ratio 20.4 RATIO (10-20); CPK Total, Creatine Kinase 38 U/L (24-195); Calcium,Total 9.2 mg/dL (7.6-11.0); Carbon Dioxide 21.2 mmol/L (21.0-32.0); Chloride 104 mmol/L (98-108); Globulin 3.8 g/dL (2.2-4.2); Glucose 115 mg/dL (70-99); Potassium 3.9 mmol/L (3.3-5.1)
== END | disposition home or self-care (01) ==
LOC: MTLAB 09:47
PROVIDERS: PCP Family Medicine; Referring Provider Internal Medicine Rheumatology; Visit Provider Internal Medicine Rheumatology
DX: M33.92 Dermatopolymyositis, unspecified with myopathy (principal); M15.9 Polyosteoarthritis, unspecified; Z79.899 Other long term (current) drug therapy
CPT/HCPCS: 36415; 80053; 82085; 82550; 85025

== ENCOUNTER 2025-01-14 08:08 | Outpatient (CLI) | payer MEDICARE, SELFPAY ==
[2025-01-14 08:22] VITALS: BP 146/76; PULSE 73; RESP 16; TEMP 36.2; O2SAT 95
[2025-01-14] MEDS: Immune Globulin 20 gm 20 GM/200 ML VIAL IV (08:29)
[2025-01-14] MEDS: Immune Globulin 10 gm 10 GM/100 ML VIAL IV (10:16)
[2025-01-14] MEDS: Immune Globulin 5 GM 5 GM/50 ML VIAL IV (10:53)
== END 2025-01-14 23:59 | disposition home or self-care (01) ==
LOC: MEDOUTP 08:08
PROVIDERS: PCP Family Medicine; Referring Provider Internal Medicine Rheumatology; Visit Provider Internal Medicine Rheumatology
DX: M33.92 Dermatopolymyositis, unspecified with myopathy (principal)
CPT/HCPCS: 96365; 96366; A4216; J1568

== ENCOUNTER 2025-01-16 08:07 | Outpatient (CLI) | payer MEDICARE, SELFPAY ==
[2025-01-16 08:18] VITALS: BP 156/76; PULSE 72; RESP 16; TEMP 36.1; O2SAT 96; BMI 27.6
[2025-01-16] MEDS: 0.9% NaCl Peripheral Flush Adult IV (08:27)
[2025-01-16] MEDS: Immune Globulin 20 gm 20 GM/200 ML VIAL IV (08:27)
[2025-01-16] MEDS: Immune Globulin 10 gm 10 GM/100 ML VIAL IV (10:22)
[2025-01-16] MEDS: Immune Globulin 5 GM 5 GM/50 ML VIAL IV (11:02)
== END 2025-01-16 23:59 | disposition home or self-care (01) ==
LOC: MEDOUTP 08:07
PROVIDERS: PCP Family Medicine; Referring Provider Internal Medicine Rheumatology; Visit Provider Internal Medicine Rheumatology
DX: M33.92 Dermatopolymyositis, unspecified with myopathy (principal)
CPT/HCPCS: 96365; 96366; A4216; J1568